=== PATIENT | male | born 1955 | race Caucasian/White ===

== ENCOUNTER 2023-06-16 15:29 | Outpatient (OUT) | payer OTHER, SELFPAY ==
--- NOTE | 2023-06-16 15:43 | MR_ITS ---
[address] [address] Patient Name: MARTI MORGAN MRN: [id number] date: 1955 Sex: M Assigned Patient Location: MRI Current Patient Location: Accession/Order Number: [id number] Exam Date: 06/16/2023 16:00 Report Date: 06/17/2023 07:29 At the request of: SHAIKH REBECCA Procedure: MR knee RT wo con EXAMINATION: MR knee RT wo con HISTORY: RIGHT KNEE PAIN M25.561 COMPARISON: No relevant comparison available. TECHNIQUE: A complete multi-planar MRI was performed. FINDINGS: MEDIAL COMPARTMENT MEDIAL MENISCUS: Signal abnormality throughout the posterior horn consistent with a complex tear extending to the superior and inferior articular surface. Thinned extruded body CARTILAGE: Mild to moderate chondromalacia BONES: Mild marginal osteophyte formation. Bone edema noted in the medial tibial plateau MCL AND MEDIAL CAPSULE: Normal medial collateral ligament and medial capsule. LATERAL COMPARTMENT LATERAL MENISCUS: Evidence of myxoid degeneration without visible tear. CARTILAGE: Moderate to severe chondromalacia with associated osteochondral injury BONES: Area of signal abnormality consistent with an osteochondral injury anterior lateral femoral condyle measuring 1.2 x 0.9 cm best seen on sagittal images 28 LCL/POSTEROLAT COMPLEX: Normal lateral collateral ligament, fascicles, lateral capsule and ligaments. ANTERIOR COMPARTMENT PATELLA: No marrow pathology, fracture, or significant arthropathy. CARTILAGE: Mild to moderate chondromalacia with no associated bone edema TENDONS: Normal. EFFUSION: Moderate joint effusion. ACL: Normal appearing ligament. PCL: Normal appearing ligament. MENISCOFEMORAL: Normal meniscofemoral ligaments. OTHER: Negative. 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
== END 2023-06-16 15:30 | disposition home or self-care (01) ==
LOC: MRI 15:32
PROVIDERS: PCP Internal Medicine; Visit Provider Internal Medicine
DX: M25.561 Pain in right knee (principal); M17.11 Unilateral primary osteoarthritis, right knee; S83.231A Complex tear of medial meniscus, current injury, right knee, initial encounter
CPT/HCPCS: 73721

== ENCOUNTER 2023-09-04 08:11 | Outpatient (OUT) | payer OTHER, SELFPAY ==
[2023-09-04 09:00] LABS: Percent Iron Saturation 18.9 %
[2023-09-05 05:07] LABS: Transferrin 282 mg/dL (177-329)
== END 2023-09-04 08:12 | disposition home or self-care (01) ==
LOC: LAB 08:12
PROVIDERS: PCP Internal Medicine; Visit Provider Internal Medicine
DX: D64.9 Anemia, unspecified (principal)
CPT/HCPCS: 36415; 82607; 82728; 82746; 83540; 83550; 84466

== ENCOUNTER 2024-02-21 06:47 | Outpatient (OUT) | payer OTHER, SELFPAY ==
--- OUTSIDE RECORDS SUMMARY | 2024-02-21 06:52 | XMS_ITS | CCD ---
Author Organization [facility] Care Team Providers Care Janitor Helper Name Role Phone SHAIKH Best CARLOS Admitting Unavailable SHAIKH Best CARLOS Attending Unavailable SHAIKH Best CARLOS Primary Care Unavailable SHAIKH Best CARLOS Consulting Unavailable SHAIKH CARLOS Primary Care Physician [phone] SHAIKH CARLOS Referring Unavailable RAMIN SIERRA Attending Unavailable LORIE PATTON Attending Unavailable Shaikh Carlos Primary Care Unavailable Mora Godoy Attending Unavailable Asajanet Imjanet Admitting Unavailable Medications Current Medications Medication Drug Class(es) Dates Sig (Normalized) Sig (Original) aspirin 81 mg delayed release oral tablet (1 source) Platelet Aggregation Inhibitor, Nonsteroidal Anti-inflammatory Drug Start: 10-09-2023 take 81 mg by mouth once daily Aspirin Active 81 MG PO Daily October 09, 2023 12:00am atorvastatin 20 mg oral tablet (2 sources) HMG-CoA Reductase Inhibitor Start: 10-09-2023 take 20 mg by mouth once daily Atorvastatin Active 20 MG PO Daily October 09, 2023 12:00am Start: 2023 atorvastatin 2 0 mg Tab Refills(s) 0 Start Date: 05/20/23 Status: Ordered diclofenac sodium 0.01 mg/mg topical gel (1 source) Nonsteroidal Anti-inflammatory Drug Start: 2023 diclofenac topical 1% gel Refill(s) 0 Start Date: 05/20/23 Status: Ordered ferrous sulfate 325 mg oral tablet (1 source) Start: 10-09-2023 take 325 mg by mouth once daily Ferrous Sulfate Active 325 MG PO Daily October 09, 2023 12:00am meloxicam 15 mg oral tablet (2 sources) Nonsteroidal Anti-inflammatory Drug Start: 10-09-2023 take 15 mg by mouth once daily Meloxicam Active 15 MG PO Daily October 09, 2023 12:00am Start: 2023 meloxicam 15 m g Tab Refills(s) 0 Start Date: 05/20/23 Status: Ordered metFORMIN hydrochloride 500 mg oral tablet (2 sources) Biguanide Start: 10-09-2023 take 500 mg by mouth twice daily Metformin Active 500 MG PO Twice daily October 09, 2023 12:00am Start: 2023 metformin 500 mg Tab Refills(s) 0 Start Date: 05/20/23 Status: Ordered 24 hr metoprolol succinate 50 mg extended release oral tablet (2 sources) beta-Adrenergic Fadia Start: 10-09-2023 take 50 mg by mouth once daily Metoprolol Succinate Active 50 MG PO Daily October 09, 2023 12:00am Start: 2023 take 1 mg by mouth once daily metoprolol 50 mg ER Tab mg tab(s), Oral, Daily, Refills(s) 0 Start Date: 05/20/23 Status: Ordered Multivitamin preparation (1 source) Start: 2023 multivitamin Refill(s) 0 Start Date: 05/20/23 Status: Ordered tadalafil 10 mg oral tablet (2 sources) Phosphodiesterase 5 Inhibitor Start: 10-09-2023 Tadalafil Active 10 MG PO As Directed October 09, 2023 12:00am Start: 2023 take 2 tablets by [facility] once daily as needed Cialis 10 mg Tab 20 mg = 2 tab(s), Oral, Daily, PRN for erectile dysfunction, Refills(s) 0 Start Date: 05/20/23 Status: Ordered tamsulosin hydrochloride 0.4 mg oral capsule (2 sources) alpha-Adrenergic Fadia Start: 10-09-2023 take 0.4 mg by mouth twice daily Tamsulosin Active 0.4 MG PO Twice daily October 09, 2023 12:00am Start: 2023 take 1 capsule by mo ut twice daily tamsulosin 0.4 mg Cap 0.4 mg = 1 cap(s), Oral, BID, # 60 tab(s), Refills(s) 6, Pharmacy: [id number], 192, cm, 05/20/23 10:49:00 EDT, Height/Length Dosing, 110, kg, 09/12/23 10:49:00 EDT, Weight Dosing Start Date: 05/20/23 Status: Ordered Completed/Discontinued Medications Medication Drug Class(es) Dates Sig (Normalized) Sig (Original) clopidogrel 75 mg oral tablet (2 sources) P2Y12 Platelet Inhibitor Start: 10-09-2023 End: 10-09-2023 take 75 mg by mouth once daily Clopidogrel Discontinued 75 MG PO Daily October 09, 2023 12:00am October 09, 2023 9:29am Start: 2023 clopidogrel 75 mg Tab Refills(s) 0 Start Date: 05/20/23 Status: Ordered Problems Problem Classification Problem Date Documented Da te Episodic/Chronic Calculus of urinary tract (1 source) History of calculus of kidney 2023 Episodic Diabetes mellitus without complication (2 sources) Type 2 diabetes mellitus without complications; Translations: [Diabetes mellitus] Onset: 06-28-2022 2023 Chronic Disorders of lipid metabolism (2 sources) Hyperlipidemia, unspecified; Translations: [Hyperlipidemia] Onset: 06-28-2022 2023 Chronic Essential hypertension (5 sources) Essential (primary) hypertension; Translations: [Hypertensive disorder] Onset: 06-25-2022 Chronic Genitourinary symptoms and ill-defined conditions (1 source) Sensation as if bladder still full; Translations: [Feeling of incomplete bladder emptying] Onset: 2023 Episodic Hyperplasia of prostate (3 sources) Benign prostatic hyperplasia with lower urinary tract symptoms; Translations: [Benign prostatic hypertrophy with outflow obstruction] Onset: 06-28-2022 Chronic Osteoarthritis (1 source) Arthritis 2023 Chronic Other aftercare (1 source) Long-term current use of anticoagulant; 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] Onset: 2023 Episodic Other male genital disorders (2 sources) Male erectile dysfunction, unspecified; Translations: [Erectile dysfunction] Onset: 2023 Chronic Other screening for suspected conditions (not mental disorders or infectious disease) (1 source) Encounter for screening for malignant neoplasm of prostate; Translations: [Screening for malignant neoplasm done] Onset: 2023 Episodic Transient cerebral ischemia (1 source) Transient cerebral ischemia 2023 Chronic Unclassified (1 source) Drug therapy finding 2023 Unclassified (1 source) Finding of sensation of bladder 2023 Unclassified (1 source) Patient encounter status 2023 Unclassified (1 source) Encounter for screening for malignant neoplasm of colon; Translations: [Encounter for screening for malignant neoplasm of colon] Onset: 10-09-2023 Results Test Name Value Interpretation Reference Range Facility Glucose Poct Glucometerson 0 10-09-2023 Glucose [Mass/Vol] 97 mg/dL Normal [facility] Comment on above: Result Comment: [facility] Glucose Reference Range is dependent on time and content of last meal. Glucose of more than 200 mg/dL in a nonstressed, ambulatory subject supports the diagnosis of Diabetes Mellitus. PERFORMED BY: [facility] [address] [place] [address] PATHOLOGIST LIBRARIAN SPECIALIST VÍCTOR FRANKLIN M.D. Performed By: #### G LULS #### Point of Care testing , Physician Referralon 023 Physician Referral [id number] 1989 [id number] :127 Normal [facility] Screenson 05-21-2023 Screens [id number] :127 Normal [facility] Screens [id number]: 127 Normal [facility] Ambulatory Visit Summaryon 0 2023 Ambulatory Visit Summary MARTI MORGAN :1955 Visit Date:2023 Ambulatory Visit Instructions Your Diagnosis BPH with urinary obstruction ED (erectile dysfunction) Feeling of incomplete bladder emptying Prostate cancer screening Anticoagulated Tests Performed Urnls Dip Stick Auto w/o Microscopy POC 60721 Your Care Team Attending Physician - MARIELA LANIER, RAMIN Cowan Primary Care Physician - SHAIKH CARLOS MD Referring Physician - SHAIKH CARLOS MD This Is Your Medications List tadalafil (Cialis 10 mg Tab) tamsulosin (tamsulosin 0.4 mg Cap) Contact prescribing physician if questions or concerns atorvastatin (atorvastatin 20 mg Tab) clopidogrel (clopidogrel 75 mg Tab) diclofenac topical (diclofenac topical 1% gel) meloxicam (meloxicam 15 mg Tab) metformin (metformin 500 mg Tab) metoprolol (metoprolol 50 mg ER Tab) multivitamin Procedures Performed Carpal tunnel, Colonoscopy, Tonsillectomy. Discharge Vitals Heart Rate (Peripheral) 78 Respiratory Rate 16 Blood Pressure 132/80 Height 192 cm Height 76 in Weight 110 kg Weight 242 lb BMI 29.84 What to do next You Need to Schedule the Following Appointments Follow Up with MARIELA LANIER, NAYANA BLACKMON When: Comments: Sched Cysto/TRUS w/KML Where: [address] [place] [address] Medications What How Much When Instructions Changed tadalafil (Cialis 10 mg Tab) 2 Tablets By Mouth Every day as needed for for erectile dysfunction Changed tamsulosin (tamsulosin 0.4 mg Cap) 1 Capsules By Mouth 2 times a day Pickup at [facility] Unchanged atorvastatin (atorvastatin 20 mg Tab) Contact prescribing physician if questions or concerns Unchanged clopidogrel (clopidogrel 75 mg Tab) Contact prescribing physician if questions or concerns Unchanged diclofenac topical (diclofenac topical 1% gel) Contact prescribing physician if questions or concerns Unchanged meloxicam (meloxicam 15 mg Tab) Contact prescribing physician if questions or concerns Unchanged metformin (metformin 500 mg Tab) Contact prescribing physician if questions or concerns Unchanged metoprolol (metoprolol 50 mg ER Tab) By Mouth Every day Contact prescribing physician if questions or concerns Unchanged multivitamin Contact prescribing physician if questions or concerns Pharmacy Information [id number]: [address] [place], [place] [id number] [phone] Test Results Urnls Dip Stick Auto w/o Microscopy POC 96894 (2023) Bilirubin Urine Dipstick - Negative Blood Urine Dipstick - Negative Glucose Urine Dipstick - Negative Ketones Urine Dipstick - Negative Leukocytes Urine Dipstick - Negative Nitrite Urine Dipstick - Negative Protein Urine Dipstick - Negative Specific Rankin Urine Dipstick - 1.010 Urine Appearance Urine Dipstick - Clear Urine Color Urine Dipstick - Yellow Urobilinogen Urine Dipstick - Normal 0.2-1 EU/dl pH Urine Dipstick - 6.5 Allergies No Known Medication Allergies Problems Ongoing - Any problem that you are currently receiving treatment for. Anticoagulated Arthritis BPH with urinary obstruction Diabetes ED (erectile dysfunction) Feeling of incomplete bladder emptying History of kidney stones Hyperlipidemia Hypertension Prostate cancer screening TIA (transient ischemic attack) Education Materials Benign Prostatic Hyperplasia Benign prostatic hyperplasia (BPH) is an enlarged prostate gland that is caused by the normal aging process. The prostate may get bigger as a man gets older. The condition is not caused by cancer. The prostate is a walnut-sized gland that is involved in the production of semen. It is located in front of the rectum and below the bladder. The bladder stores urine. The urethra carries stored urine out of the body. An enlarged prostate can press on the urethra. This can make it harder to pass urine. The buildup of urine in the bladder can cause infection. Back pressure and infection may progress to bladder damage and kidney (renal) failure. What are the causes? This condition is part of the normal aging process. However, not all men develop problems from this condition. If the prostate enlarges away from the urethra, urine flow will not be blocked. If it enlarges toward the urethra and compresses it, there will be problems passing urine. What increases the risk? This condition is more likely to develop in men older than 50 years. What are the signs or symptoms? Symptoms of this condition include: ? Getting up often during the night to urinate. ? Needing to urinate frequently during the day. ? Difficulty starting urine flow. ? Decrease in size and strength of your urine stream. ? Leaking (dribbling) after urinating. ? Inability to pass urine. This needs immediate treatment. ? Inability to completely empty your bladder. ? Pain when you pass urine. This is more com (more content not included)... Normal [facility] Lab Reportson 2023 Lab Reports [id number]:1 27 Normal [facility] Lab Reports [id number]: 127 Normal [facility] Patient Educationon 05-20-20 23 Patient Education Urology Benign Prostatic Hyperplasia Benign prostatic hyperplasia (BPH) is an enlarged prostate gland that is caused by the normal aging process. The prostate may get bigger as a man gets older. The condition is not caused by cancer. The prostate is a walnut-sized gland that is involved in the production of semen. It is located in front of the rectum and below the bladder. The bladder stores urine. The urethra carries stored urine out of the body. An enlarged prostate can press on the urethra. This can make it harder to pass urine. The buildup of urine in the bladder can cause infection. Back pressure and infection may progress to bladder damage and kidney (renal) failure. What are the causes? This condition is part of the normal aging process. However, not all men develop problems from this condition. If the prostate enlarges away from the urethra, urine flow will not be blocked. If it enlarges toward the urethra and compresses it, there will be problems passing urine. What increases the risk? This condition is more likely to develop in men older than 50 years. What are the signs or symptoms? Symptoms of this condition include: ? Getting up often during the night to urinate. ? Needing to urinate frequently during the day. ? Difficulty starting urine flow. ? Decrease in size and strength of your urine stream. ? Leaking (dribbling) after urinating. ? Inability to pass urine. This needs immediate treatment. ? Inability to completely empty your bladder. ? Pain when you pass urine. This is more common if there is also an infection. ? Urinary tract infection (UTI). How is this diagnosed? This condition is diagnosed based on your medical history, a physical exam, and your symptoms. Tests will also be done, such as: ? A post-void bladder scan. This measures any amount of urine that may remain in your bladder after you finish urinating. ? A digital rectal exam. In a rectal exam, your health care provider checks your prostate by putting a lubricated, gloved finger into your rectum to feel the back of your prostate gland. This exam detects the size of your gland and any abnormal lumps or growths. ? An exam of your urine (urinalysis). ? A prostate specific antigen (PSA) screening. This is a blood test used to screen for prostate cancer. ? An ultrasound. This test uses sound waves to electronically produce a picture of your prostate gland. Your health care provider may refer you to a specialist in kidney and prostate diseases (urologist). How is this treated? Once symptoms begin, your health care provider will monitor your condition (active surveillance or watchful waiting). Treatment for this condition will depend on the severity of your condition. Treatment may include: ? Observation and yearly exams. This may be the only treatment needed if your condition and symptoms are mild. ? Medicines to relieve your symptoms, including: ? Medicines to shrink the prostate. ? Medicines to relax the muscle of the prostate. ? Surgery in severe cases. Surgery may include: ? Prostatectomy. In this procedure, the prostate tissue is removed completely through an open incision or with a laparoscope or robotics. ? Transurethral resection of the prostate (TURP). In this procedure, a tool is inserted through the opening at the tip of the penis (urethra). It is used to cut away tissue of the inner core of the prostate. The pieces are removed through the same opening of the penis. This removes the blockage. ? Transurethral incision (TUIP). In this procedure, small cuts are made in the prostate. This lessens the prostate's pressure on the urethra. ? Transurethral microwave thermotherapy (TUMT). This procedure uses microwaves to create heat. The heat destroys and removes a small amount of prostate tissue. ? Transurethral needle ablation (TUNA). This procedure uses radio frequencies to destroy and remove a small amount of prostate tissue. ? Interstitial laser coagulation (ILC). This procedure uses a laser to destroy and remove a small amount of prostate tissue. ? Transurethral electrovaporization (TUVP). This procedure uses electrodes to destroy and remove a small amount of prostate tissue. ? Prostatic urethral lift. This procedure inserts an implant to push the lobes of the prostate away from the urethra. Follow these instructions at home: ? Take wkxv-abu-efjqwig and prescription medicines only as told by your health care provider. ? Monitor your symptoms for any changes. Contact your health care provider with any changes. ? Avoid drinking large amounts of liquid before going to bed or out in public. ? Avoid or reduce how much caffeine or alcohol you drink. ? Give yourself time when you urinate. ? Keep all follow-up visits. This is important. Contact a health care provider if: ? You have unexplained back pain. ? Your symptoms do not get better with treatment. ? You develop side effects from the medicine (more content not included)... Normal [facility] CBC AUTO DIFFon 06-25-2022 BASO # 0.1 103/ul Normal 0.0-0.1 [facility] Comment on above: Performed By: #### C BC #### [facility] [address] [place] [address] Dr. Renee Prado Basophils/100 WBC (Bld) 0.8 % Normal 0.2-2.0 [facility] Comment on above: Performed By: #### C BC #### [facility] [address] [place] [address] Dr. Renee Prado EO # 0.3 103/ul Normal 0.0-0.7 [facility] Comment on above: Performed By: #### C BC #### [facility] [address] [place] [address] Dr. Renee Prado Eosinophils/100 WBC (Bld) 3.3 % Normal 0.9-7.0 [facility] Comment on above: Performed By: #### C BC #### [facility] [address] [place] [address] Dr. Renee Prado Erythrocyte distribution width (RBC) [Ratio] 13.9 % Normal 11.0-15.0 [facility] Comment on above: Performed By: #### C BC #### [facility] [address] [place] [address] Dr. Renee Prado Hematocrit (Bld) [Volume fraction] 41.9 % Critically low 42.0-54.0 [facility] Comment on above: Performed By: #### C BC #### [facility] [address] [place] [address] Dr. Renee Prado Hemoglobin (Bld) [Mass/Vol] 13.8 g/dL Critically low 14.0-18.0 [facility] Comment on above: Performed By: #### C BC #### [facility] [address] [place] [address] Dr. Renee Prado IG # 0.02 10e3/ul Normal 0.00-0.03 [facility] Comment on above: Performed By: #### C BC #### [facility] [address] [place] [address] Dr. Renee Prado IG % 0.2 % Normal 0.0-0.5 [facility] Comment on above: Performed By: #### C BC #### [facility] [address] [place] [address] Dr. Renee Prado LYMPH # 1.8 103/ul Normal 1.2-3.8 [facility] Comment on above: Performed By: #### C BC #### [facility] [address] [place] [address] Dr. Renee rPado Lymphocytes/100 WBC (Bld) 19.9 % Critically low 20.5-60.0 [facility] Comment on above: Performed By: #### C BC #### [facility] [address] [place] [address] Dr. Renee Prado MANUAL DIFF REQ NO Normal [facility] Comment on above: Performed By: #### C BC #### [facility] [address] [place] [address] Dr. Renee Prado MCH (RBC) [Entitic mass] 28.9 pg Normal 25.9-34.0 [facility] Comment on above: Performed By: #### C BC #### [facility] [address] [place] [address] Dr. Renee Prado MCHC (RBC) [Mass/Vol] 32.9 g/dL Normal 29.9-35.2 [facility] Comment on above: Performed By: #### C BC #### [facility] [address] [place] [address] Dr. Renee Prado MCV (RBC) [Entitic vol] 87.7 fL Normal 80.0-94.0 [facility] Comment on above: Performed By: #### C BC #### [facility] [address] [place] [address] Dr. Renee Prado MONO # 0.6 103/ul Normal 0.3-0.8 [facility] Comment on above: Performed By: #### C BC #### [facility] [address] [place] [address] Dr. Renee Prado Monocytes/100 WBC (Bld) 6.8 % Normal 1.7-12.0 [facility] Comment on above: Performed By: #### C BC #### [facility] [address] [place] [address] Dr. Renee Prado NEUT # 6.1 103/ul Normal 1.4-6.5 [facility] Comment on above: Performed By: #### C BC #### [facility] [address] [place] [address] Dr. Renee Prado Neutrophils/100 WBC (Bld) 69.0 % Normal 43.0-75.0 [facility] Comment on above: Performed By: #### C BC #### [facility] [address] [place] [address] Dr. Renee Prado Platelet mean volume (Bld) [Entitic vol] 9.4 fL Critically low 9.5-13.5 [facility] Comment on above: Performed By: #### C BC #### [facility] [address] [place] [address] Dr. Renee Prado PLT 269 103/ul Normal 150-450 [facility] Comment on above: Performed By: #### C BC #### [facility] [address] [place] [address] Dr. Renee Prado RBC 4.78 106/ul Normal 4.70-6.10 [facility] Comment on above: Performed By: #### C BC #### [facility] [address] [place] [address] Dr. Renee Prado WBC 8.9 103/ul Normal 4.0-11.0 [facility] Comment on above: Performed By: #### C BC #### [facility] [address] [place] [address] Dr. Renee Prado CREATININE URINEon URINE CREAT 51.03 mg/dL Normal 20.00-300.00 [facility] Comment on above: Performed By: #### C REAU #### [facility] [address] [place] [address] Dr. Renee Prado GLYCOHEMOGLOBIN A1Con 2021 ADA RECOMMENDATION SEE BELOW Normal [facility] Comment on above: Result Comment: ADA RECOMMENDED LIMIT 4.0 - 6.0 ADA THERAPEUTIC TARGET < 7.0 ACTION SUGGESTED > 7.0 Performed By: #### A 1C #### [facility] [address] [place] [address] Dr. Renee Prado Glucose [Mass/Vol] 128 mg/dL Normal [facility] Comment on above: Performed By: #### A 1C #### [facility] [address] [address] [address] Renee Prado HbA1c (Bld) [Mass fraction] 6.1 % Normal 4.5-6.2 [facility] Comment on above: Performed By: #### A 1C #### [facility] [address] [place] [address] Dr. Renee Prado LIPID PROFILEon 06-25-2022 CHOL-HDL RATIO NORM SEE BELOW Normal [facility] Comment on above: Result Comment: 3.3 - 4.4 LOW RISK 4.4 - 7.1 AVERAGE RISK 7.1 - 11.0 MODERATE RISK >11.0 HIGH RISK Performed By: #### C MP, LIPID #### [facility] [address] [place] [address] Dr. Renee Prado Cholesterol [Mass/Vol] 158 mg/dL Normal <=200 [facility] Comment on above: Performed By: #### C MP, LIPID #### [facility] [address] [place] [address] Dr. Renee Prado Cholesterol in HDL [Mass/Vol] 51 mg/dL Normal 40-60 [facility] Comment on above: Performed By: #### C MP, LIPID #### [facility] [address] [address] [address] Renee Prado Cholesterol in LDL [Mass/Vol] 92.6 mg/dL Normal [facility] Comment on above: Performed By: #### C MP, LIPID #### [facility] [address] [place] [address] Dr. Renee Prado Cholesterol.total/Ch olesterol in HDL [Mass ratio] 3.1 {ratio} Normal [facility] Comment on above: Performed By: #### C MP, LIPID #### [facility] [address] [place] [address] Dr. Renee Prado HDL NORMAL > or = 60 mg/dl - LO W CARDIOVASCULAR RISK <40 mg/dl - HIGH CARDIOVASCULAR RISK Normal [facility] Comment on above: Performed By: #### C MP, LIPID #### [facility] [address] [place] [address] Dr. Renee Prado LDL CALC NORMAL SEE BELOW Normal [facility] Comment on above: Result Comment: <100 mg/dl OPTIMAL 100 - 129 mg/dl NEAR OR ABOVE OPTIMAL 130 - 159 mg/dl BORDERLINE HIGH 160 - 189 mg/dl HIGH >190 mg/dl VERY HIGH Performed By: #### C MP, LIPID #### [facility] [address] [place] [address] Dr. Renee Prado Triglyceride [Mass/Vol] 72 mg/dL Normal <=150 [facility] Comment on above: Performed By: #### C MP, LIPID #### [facility] [address] [place] [address] Dr. Renee Prado VLDL CALC 14.4 mg/dL Normal [facility] Comment on above: Performed By: #### C MP, LIPID #### [facility] [address] [place] [address] Dr. Renee Prado MICROALBUMIN, RAND URon 10- mALB <0.5 Normal <=30.0 [facility] Comment on above: Performed By: #### M ALBR #### [facility] [address] [place] [address] Dr. Renee Prado PROF 14(COMP METB)on 022 Albumin [Mass/Vol] 4.0 g/dL Normal 3.4-5.0 [facility] Comment on above: Performed By: #### C MP, LIPID #### [facility] [address] [place] [address] Dr. Renee Prado Albumin/Globulin [Mass ratio] 1.3 {ratio} Normal [facility] Comment on above: Performed By: #### C MP, LIPID #### [facility] [address] [address] [address] Renee Prado ALP [Catalytic activity/Vol] 40 U/L Critically low 46-116 [facility] Comment on above: Performed By: #### C MP, LIPID #### [facility] [address] [place] [address] Dr. Renee Prado ALT [Catalytic activity/Vol] 29 U/L Normal 16-63 [facility] Comment on above: Performed By: #### C MP, LIPID #### [facility] [address] [address] [address] Renee Prado Anion gap [Moles/Vol] 8.4 mmol/L Normal [facility] Comment on above: Performed By: #### C MP, LIPID #### [facility] [address] [place] [address] Dr. Renee Prado AST [Catalytic activity/Vol] 16 U/L Normal 15-37 [facility] Comment on above: Performed By: #### C MP, LIPID #### [facility] [address] [place] [address] Dr. Renee Prado Bilirubin [Mass/Vol] 0.5 mg/dL Normal 0.2-1.0 [facility] Comment on above: Performed By: #### C MP, LIPID #### [facility] [address] [place] [address] Dr. Renee Prado Calcium [Mass/Vol] 9.4 mg/dL Normal 8.5-10.1 [facility] Comment on above: Performed By: #### C MP, LIPID #### [facility] [address] [place] [address] Dr. Renee Prado Chloride [Moles/Vol] 103 mmol/L Normal 98-107 [facility] Comment on above: Performed By: #### C MP, LIPID #### [facility] [address] [address] [address] Renee Prado CO2 [Moles/Vol] 30.3 mmol/L Normal 21.0-32.0 [facility] Comment on above: Performed By: #### C MP, LIPID #### [facility] [address] [place], [place] [id number] Dr. Renee Prado Creatinine [Mass/Vol] 0.83 mg/dL Normal 0.70-1.30 [facility] Comment on above: Performed By: #### C MP, LIPID #### [facility] [address] [place] [address] Dr. Renee Prado EGFR-AF TONGAN >65 Normal >=60 [facility] Comment on above: Performed By: #### C MP, LIPID #### [facility] [address] [place] [address] Dr. Renee Prado EGFR-NON AF TONGAN >65 Normal >=60 [facility] Comment on above: Performed By: #### C MP, LIPID #### [facility] [address] [place] [address] Dr. Renee Prado Globulin (S) [Mass/Vol] 3.2 g/dL Normal [facility] Comment on above: Performed By: #### C MP, LIPID #### [facility] [address] [place] [address] Dr. Renee Prado Glucose [Mass/Vol] 88 mg/dL Normal 74-106 [facility] Comment on above: Performed By: #### C MP, LIPID #### [facility] [address] [place] [address] Dr. Renee Prado Potassium [Moles/Vol] 3.7 mmol/L Normal 3.5-5.1 [facility] Comment on above: Performed By: #### C MP, LIPID #### [facility] [address] [place] [address] Dr. Renee Prado Protein [Mass/Vol] 7.2 g/dL Normal 6.4-8.2 [facility] Comment on above: Performed By: #### C MP, LIPID #### [facility] [address] [place] [address] Dr. Renee Prado Sodium [Moles/Vol] 138 mmol/L Normal 136-145 [facility] Comment on above: Performed By: #### C MP, LIPID #### [facility] [address] [place] [address] Dr. Renee Prado Urea nitrogen [Mass/Vol] 12.0 mg/dL Normal 7.0-18.0 [facility] Comment on above: Performed By: #### C MP, LIPID #### [facility] [id number] [address] Renee Prado Urea nitrogen/Creatinine [Mass ratio] 14.5 mg/mg Normal [facility] Comment on above: Performed By: #### C MP, LIPID #### [facility] [address] [place], [place] [address] Dr. Renee Prado Vital Signs Date Time Vital Sign Value Performing Clinician Faci lity 10-09-2023 11:45-0500 Diastolic blood pressure 69 mm[Hg] [facility] 10-09-2023 11:45-0500 Heart rate 69 /min [facility] 10-09-2023 11:45-0500 Respiratory rate 18 /min [facility] 10-09-2023 11:45-0500 SaO2% (BldA) [Mass fraction] 99 % [facility] 10-09-2023 11:45-0500 Systolic blood pressure 116 mm[Hg] [facility] 10-09-2023 09:23-0500 Body height 193.04 cm [facility] 10-09-2023 09:23-0500 Body weight 108.86 kg [facility] 2023 10:47-0400 Blood Pressure Location RAMIN SIERRA [facility] 2023 10:47-0400 Diastolic blood pressure 80 mm[Hg] RAMIN SIERRA [facility] 2023 10:47-0400 Heart rate 78 /min RAMIN SIERRA [facility] 2023 10:47-0400 Respiratory rate 16 /min RAMIN SIERRA [facility] 2023 10:47-8900 Systolic blood pressure 132 mm[Hg] RAMIN SIERRA [facility] Encounters Encounter Date Encounter Type Care Provider Facility Start: 10-09-2023 End: 10-09-2023 ambulatory Shaikh Breanna Facility:[facility] Start: 10-09-2023 Non-patient / Non-visit [facility] Gastroenterology Work Phone: Start: 08-04-2023 End: 08-04-2023 ambulatory LORIE Cuenca APLING Not Available Start: 2023 End: 05-21-2023 ambulatory SHAIKH BREANNA Facility:[facility] Start: 2023 End: 2023 Patient encounter procedure RAMIN SIERRA [facility] Start: 03-05-2023 ambulatory SHAIKH BREANNA Facility: [facility] Start: 06-25-2022 End: 06-26-2022 ambulatory SHAIKH Best CARLOS Facility:[facility] Procedures Date Procedure Procedure Detail Performing Clinician Start: 06-25-2022 PSA screening ROSASBest ORDONEZ Comment on above: Performed By: #### P SAD #### [facility] [address] [place] [address] Dr. Renee Prado Carpal tunnel syndro me (disorder) RAMIN SIERRA Colonoscopy RAMIN SIERRA Tonsillectomy RAMIN SIERRA Plan of Treatment Date Care Activity Detail Author Start: 10-09-2023 [facility] Immunizations Immunization Date Immunization Notes Care Provider [facility] 07-04-2022 SARS-CoV-2 (COVID-19 ) [id number] RAMIN SIERRA [facility] 06-15-2022 influenza virus vaccine, unspecified formulation RAMIN MARIELA [facility] 12-07-2020 SARS-CoV-2 (COVID-19 ) mRNA BNT-162b2 vax RAMIN MARIELA [facility] 11-17-2020 SARS-CoV-2 (COVID-19 ) mRNA BNT-162b2 vax RAMIN MARIELA [facility] Comment on above: Result Comment: 2022: [id number] 06-30-2020 influenza virus vaccine, unspecified formulation RAMIN MARIELA [facility] 06-30-2020 tetanus toxoid, redu esther diphtheria toxoid, and acellular pertussis vaccine, adsorbed RAMIN MARIELA [facility] 03-15-2020 zoster vaccine recombinant RAMIN MARIELA [facility] 10-11-2019 zoster vaccine recombinant RAMIN MARIELA [facility] 07-29-2019 influenza virus vaccine, unspecified formulation RAMIN MARIELA [facility] 07-17-2018 influenza virus vaccine, unspecified formulation RAMIN MARIELA [facility] 12-19-2016 zoster vaccine, live JENNIFE R MARIELA [facility] Payers Date Payer Category Payer Self-pay 1957 Private Health Insurance [id number] 1955 Unknown [id number] 1955 Unknown [id number] 1955 Unknown [id number] Unknown [facility] [id number] Unknown [id number] [id number] Social History Date Type Detail Facility Start: 2023 End: 10-09-2023 Tobacco smoking status Never smoked tobacco (finding) [facility] Tobacco smoking status Never [facility] Sex Assigned At Male 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 PSA 06/21/19- 0.90 PSA 08/21/20- 0.89 PSA 06/25/22- 0.79 CMP/CBC 06/25/22 *Has been taking Tamsulosin 0.4mg qd for about 1yr. Has noticed symptoms returning in past 5 months. Increased frequency in the morning. Depends on intake. Couple times during the night. Denies problems with stream. Does not feel empty. Occasional leaking. Mostly if he can't get to the restroom quick enough &/or some dribbling at the end. Also on Cialis 10mg PRN for the past year as well. Working ok. Not as well as he would like. More difficulty maintaining the erection. PVR 430ml IPSS 12 CLAYTON 15 History of Present Illness staff HPI reviewed and agree. Review of Systems PHQ Score Initial Depression Screen Score: 0 no fever, chills, malaise, myalgia. no rash/lesions. no chest pain, palpitations, or SOB. no abdominal pain, nausea, vomiting. 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 BPH with urinary obstruction (N40.1: Benign prostatic hyperplasia with lower urinary tract symptoms) IPSS 12 QOL 3 UA today is negative for blood and infection. Has been taking Tamsulosin 0.4mg QD for about 1yr. Has noticed symptoms returning in past 5 months. Increased frequency in the morning. Depends on intake. Couple times during the night. Denies problems with stream. Occasional leaking. Mostly if he can't get to the restroom quick enough &/or some dribbling at the end. We discussed current dose and optional changes: increasing tamsulosin to BID adding an additional agent such as finasteride/dutasteride I discussed with the patient the different surgical treatment options for bladder outlet obstruction including TURP, Rezum, and Urolift. Pt was provided with literature to review for each option. He will be scheduled for cystoscopy/TRUS with MD for visualization of the prostatic urethra and surgical planning. The risks and benefits for cystoscopy have been discussed. The risks include bleeding, infection, and irritation of the bladder and urinary channel, among others. The patient, after being informed of procedural details and after questions have been answered, wishes to proceed. Full informed consent has been obtained. Will order Local anesthesia. -Increase Flomax from QD to BID for the time being to provide some immediate symptom relief. Advised pt to finish his original script and we will send new script for BID to pharm on file for him to start. Call office if intolerable side effects. -return for cysto/TRUS. if mild/moderate obstruction and no evidence of bladder damage, can hold off on MIPP for a while and try to control sx w oral meds. if moderate/severe obstruction and/or evidence of bladder damage, pt aware we will recommend MIPP sooner rather than later. Ordered: 60174 Measure Post Void residual urine and/or bladder capacity by US- non-imaging E&M of New Patient Moderate 45-59 Min 41574 Urnls Dip Stick Auto w/o Microscopy POC 07751 2. ED (erectile dysfunction) (N52.9: Male erectile dysfunction, unspecified) Pt has been on Cialis 10mg PRN for the past year as well. Working okay. Not as well as he would like. More difficulty maintaining the erection. CLAYTON 15 Advised pt that the Cialis 10mg is not the highest dose and he could try taking 20mg at once. Pt states that he will try this and let us know if not effective or if causes intolerable side effects. Proper use discussed. -increase to Cialis 20mg PRN Ordered: E&M of New Patient Moderate 45-59 Min 79150 3. Feeling of incomplete bladder emptying (R39.14: Feeling of incomplete bladder emptying) Pt states he does not feel empty, initial PVR today is 430mL, pt voided a second time about 15 mins later (unprompted) and second PVR 23mL. -See #1 Ordered: E&M of New Patient Moderate 45-59 Min 00809 4. Prostate cancer screening (Z12.5: Encounter for screening for malignant neoplasm of prostate) PSA 06/21/19 - 0.90 08/21/20 - 0.89 06/25/22 - 0.79 -due again in 1 month. PCP manages. 5. 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 Ordered: E&M of New Patient Moderate 45-59 Min 60798 Orders: tamsulosin, 0.4 mg = 1 cap(s), Oral, BID, # 60 tab(s), Refills(s) 6, Pharmacy: [id number], 192, cm, 05/20/23 10:49:00 EDT, Height/Length Dosing, 110, kg, 05/20/23 10:49:00 EDT, Weight Dosing Follow up w/Cysto/TRUS w/KML. All questions/concerns were discussed. Pt to call the office if h (more content not included)... [facility] Comment on above: Result Comment: Elec tronically Signed By: RAMIN SIERRA PA-C.br\Date and Time Signed: 05/20/23 11:49 EDT\.br\Electronically Co-Signed By: Lisa Parisi.br\Date and Time Co-Signed: 05/20/23 11:40 EDT Hospital Discharge instructions 2023 Note Date & Type Note Facility 2023 Hospital Discharge instructions Patient Education 2023 11:29:04 Benign Prostatic Hyperplasia Benign Prostatic Hyperplasia Benign prostatic hyperplasia (BPH) is an enlarged prostate gland that is caused by the normal aging process. The prostate may get bigger as a man gets older. The condition is not caused by cancer. The prostate is a walnut-sized gland that is involved in the production of semen. It is located in front of the rectum and below the bladder. The bladder stores urine. The urethra carries stored urine out of the body. An enlarged prostate can press on the urethra. This can make it harder to pass urine. The buildup of urine in the bladder can cause infection. Back pressure and infection may progress to bladder damage and kidney (renal) failure. What are the causes? This condition is part of the normal aging process. However, not all men develop problems from this condition. If the prostate enlarges away from the urethra, urine flow will not be blocked. If it enlarges toward the urethra and compresses it, there will be problems passing urine. What increases the risk? This condition is more likely to develop in men older than 50 years. What are the signs or symptoms? Symptoms of this condition include: Getting up often during the night to urinate. Needing to urinate frequently during the day. Difficulty starting urine flow. Decrease in size and strength of your urine stream. Leaking (dribbling) after urinating. Inability to pass urine. This needs immediate treatment. Inability to completely empty your bladder. Pain when you pass urine. This is more common if there is also an infection. Urinary tract infection (UTI). How is this diagnosed? This condition is diagnosed based on your medical history, a physical exam, and your symptoms. Tests will also be done, such as: A post-void bladder scan. This measures any amount of urine that may remain in your bladder after you finish urinating. A digital rectal exam. In a rectal exam, your health care provider checks your prostate by putting a lubricated, gloved finger into your rectum to feel the back of your prostate gland. This exam detects the size of your gland and any abnormal lumps or growths. An exam of your urine (urinalysis). A prostate specific antigen (PSA) screening. This is a blood test used to screen for prostate cancer. An ultrasound. This test uses sound waves to electronically produce a picture of your prostate gland. Your health care provider may refer you to a specialist in kidney and prostate diseases (urologist). How is this treated? Once symptoms begin, your health care provider will monitor your condition (active surveillance or watchful waiting). Treatment for this condition will depend on the severity of your condition. Treatment may include: Observation and yearly exams. This may be the only treatment needed if your condition and symptoms are mild. Medicines to relieve your symptoms, including: ?Medicines to shrink the prostate. ?Medicines to relax the muscle of the prostate. Surgery in severe cases. Surgery may include: ?Prostatectomy. In this procedure, the prostate tissue is removed completely through an open incision or with a laparoscope or robotics. ?Transurethral resection of the prostate (TURP). In this procedure, a tool is inserted through the opening at the tip of the penis (urethra). It is used to cut away tissue of the inner core of the prostate. The pieces are removed through the same opening of the penis. This removes the blockage. ?Transurethral incision (TUIP). In this procedure, small cuts are made in the prostate. This lessens the prostate's pressure on the urethra. ?Transurethral microwave thermotherapy (TUMT). This procedure uses microwaves to create heat. The heat destroys and removes a small amount of prostate tissue. ?Transurethral needle ablation (TUNA). This procedure uses radio frequencies to destroy and remove a small amount of prostate tissue. ?Interstitial laser coagulation (ILC). This procedure uses a laser to destroy and remove a small amount of prostate tissue. ?Transurethral electrovaporization (TUVP). This procedure uses electrodes to destroy and remove a small amount of prostate tissue. ?Prostatic urethral lift. This procedure inserts an implant to push the lobes of the prostate away from the urethra. Follow these instructions at home: Take [id number]-[id number] and prescription medicines only as told by your health care provider. Monitor your symptoms for any changes. Contact your health care provider with any changes. Avoid drinking large amounts of liquid before going to bed or out in public. Avoid or reduce how much caffeine or alcohol you drink. Give yourself time when you urinate. Keep all follow-up visits. This is important. Contact a health care provider if: You have unexplained back pain. Your symptoms do not get better with treatment. You develop side effects from the medicine you are taking. Your urine becomes very dark or has a bad smell. Your lower abdomen becomes distended and you have trouble passing urine. Get help right away if: You have a fever or chills. You suddenly cannot urinate. You feel light-headed or very dizzy, or you faint. There are large amounts of blood or clots in your urine. Your urinary problems become hard to manage. You develop moderate to severe low back or flank pain. The flank is the side of your body between the ribs and the hip. These symptoms may be an emergency. Get help right away. Call 911. Do not wait to see if the symptoms will go away. Do not drive yourself to the hospital. Summary Benign prostatic hyperplasia (BPH) is an enlarged prostate that is caused by the normal aging process. It is not caused by cancer. An enlarged prostate can press on the urethra. This can make it hard to pass urine. This condition is more likely to develop in men older than 50 years. Get help right away if you suddenly cannot urinate. This information is not intended to replace advice given to you by your health care provider. Make sure you discuss any questions you have with your health care provider. Document Revised: 03/13/2022 Document Reviewed: 03/13/2022 [employer] Patient Education 2022 Room[employer]ve[employer]. Follow Up Care 03/05/2023 09:34:37 With:RAMIN SIERRA PA-C, URL Address: [address] [place] [address] When: Unknown Comments:Sched Cysto/TRUS w/KML [facility] Evaluation + Plan note Note Date & Type Note Facility Evaluation + Plan note No data available for this section [facility] Evaluation note Note Date & Type Note Facility Evaluation note No assessment information availa [facility] Work Phone: Hospital Discharge instructions Note Date & Type Note Facility Hospital Discharge instructions Additional Instructions DISCHARGE INSTRUCTIONS FOR COLONOSCOPY WHAT TO EXPECT: - You may feel full, gassy or cramping after your procedure. In some cases, this may be from a few hours to a day. Walking may help relieve the discomfort. - If you have polyp(s) removed you may note some minor bloody discharge after your first bowel movements. - You should begin to recover from anesthesia within 1 hour of the procedure, however may feel groggy for the next 24 hours. DO's AND DON'Ts: - Call your doctor right away if you have a hard abdomen, severe pain, are passing lots of bright red blood or clots. - Call your doctor if you develop any rashes, hives or difficulty breathing. - Let your doctor know if you have not had a bowel movement by 3 days after your procedure. - If you take 81 mg aspirin for your heart it is safe to resume this medication. - If you take other blood thinner medications your doctor will instruct you when these can safely be resumed. - Do NOT drive for 24 hours. - Do NOT operate machinery such as power tools, lawn mowers, snow blowers, sewing machines, etc. for 24 hours. - Avoid alcoholic beverages and drugs for allergies, nerves, or sleep. - Do NOT stay alone. Do NOT leave your child unattended. - Do NOT make important personal or business decisions or sign any legal documents. - Eat solid foods and drink liquids in smaller amounts than usual until normal appetite returns. If you should experience an upset stomach, liquids high in sugar content (soda, Daniel-Aid, non-acid juices) are recommended. - You can resume normal activities tomorrow. FOLLOW UP & RECOMMENDATIONS: -Notify the doctor if you have any problems. -Repeat colonoscopy in 5 years. -Follow up with PCP. -Office number [phone]. [facility] Work Phone: Progress note Note Date & Type Note Facility Progress note No data available for this section [facility] Summary Purpose Family History No Family History Records Found Relationship Condition Age at Onset Recorded Date/T xenia Not Specified Diabetes mellitus Unknown Hypertension Unknown father Diabetes mellitus Unknown Heart disease Unknown Not Specified Heart disease Unknown Myocardial infarction Unknown Advance Directives No Advanced Directives Records Found Advance Directive Response Recorded Date/ Time Advance Directives No October 07, 2023 4:56pm Chief Complaint and Reason for Visit Chief Complaint Screening Additional Source Comments (unrecognized sect ion and content) No Status Records FoundNo Status Records FoundNo Status Records FoundNo Status Records Found INFORMATION SOURCE (unrecogn ized section and content) DATE CREATED AUTHOR 06/30/2022 [facility] DATE CREATED AUTHOR AUTHOR'S ORGANIZ ATION 05/21/2023 [facility] DATE CREATED AUTHOR AUTHOR'S ORGANIZ ATION 08/04/2023 [facility] DATE CREATED AUTHOR AUTHOR'S ORGANIZ ATION 10/17/2023 [facility] Patient Care team informatio n (unrecognized section and content) Team Status: Active Member Role Status Dates Shaikh Breanna MD Primary Care Provider Active Team Status: Active Member Role Status Dates Mora Godoy MD Attending Provider, Other Provider Active Start: October 09, 2023 Shaikh Breanna MD Primary Care Provider Active Start: October 09, 2023 Goals (unrecognized section and content) Goals may be documented in a n alternate section FOR RECORDS PERTAINING TO PATIENTS WHO ARE OR HAVE BEEN ENROLLED IN A CHEMICAL DEPENDENCY/SUBSTANCEABUSE PROGRAM, SOME INFORMATION MAY BE OMITTED. This clinical summary was aggregated from multiple sources. Caution should be exercised in using it in the provision of clinical care. This summary normalizes information from multiple sources, and as a consequence, information in this document may materially change the coding, format and clinical context of patient data. In addition, data may be omitted in some cases. CLINICAL DECISIONS SHOULD BE BASED ON THE PRIMARY CLINICAL RECORDS. [employer] provides no warranty or guarantee of the accuracy or completeness of information in this document.
[2024-02-21 07:08] LABS: Basophils Absolute Auto 0.1 10^3/uL (0.0-0.1); Basophils Percent Auto 1.3 % (0.2-2.0); Eosinophils Absolute Auto 0.4 10^3/uL (0.0-0.7); Eosinophils Percent Auto 5.2 % (0.9-7.0); Hemoglobin 13.2 g/dL (14.0-18.0); Immature Granulocytes Abs Auto 0.01 10^3/uL (0.00-0.03); Immature Granulocytes Pct Auto 0.1 % (0.0-0.5); Lymphocytes Absolute Auto 1.3 10^3/uL (1.2-3.8); Lymphocytes Percent Auto 18.5 % (20.5-60.0); Mean Corpuscular Hemoglobin 29.4 pg (25.9-34.0); Mean Corpuscular Volume 89.1 fL (80.0-94.0); Mean Platelet Volume 9.1 fL (9.5-13.5); Monocytes Absolute Auto 0.6 10^3/uL (0.3-0.8); Monocytes Percent Auto 8.5 % (1.7-12.0); Neutrophils Absolute Auto 4.7 10^3/uL (1.4-6.5); Neutrophils Percent Auto 66.4 % (43.0-75.0); Platelet Count 270 10^3/uL (150-450); Red Blood Count 4.49 10^6/uL (4.70-6.10); Red Cell Distribution Width 14.3 % (11.0-15.0); White Blood Count 7.1 10^3/uL (4.0-11.0)
[2024-02-21 07:40] LABS: Percent Iron Saturation 8.9 %
[2024-02-21 07:43] LABS: Chol HDL Ratio 1.9; Cholesterol 107 mg/dL (<=200); HDL Cholesterol 55 mg/dL (40-60); LDL Cholesterol Calculated 41.2 mg/dL; Triglycerides 54 mg/dL (<=150); VLDL CHOLESTEROL 10.8 mg/dL
== END 2024-02-21 06:48 | disposition home or self-care (01) ==
PROVIDERS: PCP Internal Medicine; Visit Provider Internal Medicine
DX: E78.5 Hyperlipidemia, unspecified (principal); D50.9 Iron deficiency anemia, unspecified
CPT/HCPCS: 36415; 80061; 82728; 83540; 83550; 85025

== ENCOUNTER 2024-03-01 16:24 | Outpatient (OUT) | payer OTHER, SELFPAY ==
--- NOTE | 2024-03-01 | XR_ITS ---
[address] [address] Patient Name: MARTI MORGAN MRN: [id number] date: 1955 Sex: M Assigned Patient Location: RAD Current Patient Location: [facility] Accession/Order Number: [id number] Exam Date: 03/01/2024 16:35 Report Date: 03/02/2024 07:10 At the request of: SHAIKH REBECCA Procedure: XR shoulder LT min 2V PROCEDURE: XR shoulder LT min 2V COMPARISON: None. HISTORY: Chronic left shoulder pain M25.562 FINDINGS: BONES:No acute fracture or dislocation. Mild acromioclavicular and glenohumeral joint osteoarthritis SOFT TISSUES:Negative. No visible soft tissue swelling. EFFUSION:None visible. OTHER: Negative. XR/XR shoulder LT min 2V IMPRESSION: Mild osteoarthritis Electronically authenticated by: MELISSA OVIEDO Date: 03/02/2024 07:10
--- NOTE | 2024-03-01 | XR_ITS ---
[address] [address] Patient Name: MARTI MORGAN MRN: [id number] date: 1955 Sex: M Assigned Patient Location: [facility] Current Patient Location: Accession/Order Number: [id number] Exam Date: 03/01/2024 16:35 Report Date: 03/02/2024 07:09 At the request of: SHAIKH REBECCA Procedure: XR knee LT 3V PROCEDURE: XR knee LT 3V COMPARISON: None. HISTORY: Chronic Left knee pain M25.512 FINDINGS: BONES:No acute fracture or dislocation. Severe osteoarthritis of the anterior compartment with [id number] articulation and marginal osteophyte formation SOFT TISSUES:Negative. No visible soft tissue swelling. EFFUSION:None visible. OTHER: Negative. XR/XR knee LT 3V IMPRESSION: Severe patellofemoral osteoarthritis Electronically authenticated by: MELISSA OVIEDO Date: 03/02/2024 07:09
--- OUTSIDE RECORDS SUMMARY | 2024-03-01 16:41 | XMS_ITS | CCD ---
Author Organization [facility] Care Team Providers Care Yarn Finisher Name Role Phone SHAIKH Best CARLOS Admitting Unavailable SHAIKH Best CARLOS Attending Unavailable SHAIKH Best CARLOS Primary Care Unavailable SHAIKH Best CARLOS Consulting Unavailable SHAIKH CARLOS Primary Care Physician SHAIKH CARLOS Referring Unavailable RAMIN SIERRA Attending Unavailable Shaikh Carols Primary Care Unavailable Mora Godoy Attending Unavailable Asajanet Imad Admitting Unavailable LORIE PATTON Attending Unavailable SHAIKH CARLOS Attending Unavailable SHAIKH CARLOS Attending Unavailable Medications Current Medications Medication Drug Class(es) [...] 12:00am Start: 2023 take 2 tablets by mo ut once daily as needed Cialis 10 mg Tab 20 mg = 2 tab(s), Oral, Daily, PRN for erectile dysfunction, Refills(s) 0 Start Date: 05/20/23 Status: Ordered tamsulosin hydrochloride 0.4 mg oral capsule (2 sources) alpha-Adrenergic Fadia Start: 10-09-2023 take 0.4 mg by mouth twice daily Tamsulosin Active 0.4 MG PO Twice daily October 09, 2023 12:00am Start: 2023 take 1 capsule by mo uth twice daily tamsulosin 0.4 mg Cap 0.4 mg = 1 cap(s), Oral, BID, # 60 tab(s), Refills(s) 6, Pharmacy: [facility], 192, cm, 05/20/23 10:49:00 EDT, Height/Length Dosing, 110, kg, 05/20/23 10:49:00 EDT, Weight Dosing Start Date: 05/20/23 [...] source) Long-term current use of anticoagulant; Translations: [detention (current) use of anticoagulants] Onset: 2023 Episodic [...] 0 10-09-2023 Glucose [Mass/Vol] 97 mg/dL Normal [facility] Comment on above: Result Comment: [facility] Glucose Reference Range is dependent on time and content of last meal. Glucose of more than 200 mg/dL in a nonstressed, ambulatory subject supports the diagnosis of Diabetes Mellitus. PERFORMED BY: [facility] [address] [place] [address] PATHOLOGIST FILM OR VIDEOTAPE EDITOR VÍCTOR FRANKLIN M.D. Performed By: #### G LULS #### Point of Care testing , Physician Referralon 023 Physician Referral [id number] :127 Normal [facility] Screenson 05-21-2023 Screens [id number] :127 Normal [facility] Screens [id number]: 127 Normal [facility] Ambulatory Visit Summaryon 0 2023 Ambulatory Visit Summary MARTI MORGAN :1955 Visit Date:2023 Ambulatory Visit Instructions Your Diagnosis BPH with urinary obstruction ED (erectile dysfunction) Feeling of incomplete bladder emptying Prostate cancer screening Anticoagulated Tests Performed Urnls Dip Stick Auto w/o Microscopy POC 48927 Your Care Team Attending Physician - RAMIN SIERRA PA-C Primary Care Physician - SHAIKH CARLOS MD [...] When: Comments: Sched Cysto/TRUS w/KML Where: [address] [place] [address] Medications What How Much When Instructions Changed tadalafil (Cialis 10 mg Tab) 2 Tablets By Mouth Every day as needed for for erectile dysfunction Changed tamsulosin (tamsulosin 0.4 mg Cap) 1 Capsules By Mouth 2 times a day Pickup at [facility] 1420 Unchanged atorvastatin (atorvastatin 20 mg Tab) Contact [...] physician if questions or concerns Pharmacy Information [facility]: [address] [place], [place] [id number] [phone] Test Results Urnls Dip Stick Auto w/o Microscopy POC 10854 (2023) Bilirubin Urine Dipstick - Negative Blood Urine Dipstick - Negative Glucose Urine Dipstick - Negative Ketones Urine Dipstick - Negative Leukocytes Urine Dipstick - Negative Nitrite Urine Dipstick - Negative Protein Urine Dipstick - Negative Specific [place] Urine Dipstick - 1.010 Urine Appearance Urine [...] more com (more content not included)... Normal [facility] Lab Reportson 2023 Lab Reports [id number]:1 27 Normal [facility] Lab Reports [id number]#[id number]: 127 Normal [facility] Patient Educationon 05-20-20 23 Patient Education Urology [...] Follow these instructions at home: ? Take nodn-rob-jqliffy and prescription medicines only as told by [...] the medicine (more content not included)... Normal [facility] CBC AUTO DIFFon 06-25-2022 BASO # 0.1 103/ul Normal 0.0-0.1 [facility] Comment on above: Performed By: #### C BC #### [facility] [address] [address] [address] Renee Prado Basophils/100 WBC (Bld) 0.8 % Normal 0.2-2.0 [facility] Comment on above: Performed By: #### C BC #### [facility] [address] [address] [address] Renee Prado EO # 0.3 103/ul Normal 0.0-0.7 [facility] Comment on above: Performed By: #### C BC #### [facility] [address] [place] [address] Dr. Renee Prado Eosinophils/100 WBC (Bld) 3.3 % Normal 0.9-7.0 [facility] Comment on above: Performed By: #### C BC #### [facility] [address] [place] [address] Dr. Renee Prado Erythrocyte distribution width (RBC) [Ratio] 13.9 % Normal 11.0-15.0 [facility] Comment on above: Performed By: #### C BC #### [facility] [address] [place] [address] Dr. Renee Prado Hematocrit (Bld) [Volume fraction] 41.9 % Critically low 42.0-54.0 [facility] Comment on above: Performed By: #### C BC #### [facility] [address] [place] [address] Dr. Renee Prado Hemoglobin (Bld) [Mass/Vol] 13.8 g/dL Critically low 14.0-18.0 [facility] Comment on above: Performed By: #### C BC #### [facility] [address] [place] [address] Dr. Renee Prado IG # 0.02 10e3/ul Normal 0.00-0.03 [facility] Comment on above: Performed By: #### C BC #### [facility] [address] [place] [address] Dr. Renee Prado IG % 0.2 % Normal 0.0-0.5 [facility] Comment on above: Performed By: #### C BC #### [facility] [address] [place] [address] Dr. Renee Prado LYMPH # 1.8 103/ul Normal 1.2-3.8 [facility] Comment on above: Performed By: #### C BC #### [facility] [address] [place] [address] Dr. Renee Prado Lymphocytes/100 WBC (Bld) 19.9 % Critically low 20.5-60.0 [facility] Comment on above: Performed By: #### C BC #### [facility] [address] [place] [address] Dr. Renee Prado MANUAL DIFF REQ NO Normal [facility] Comment on above: Performed By: #### C BC #### [facility] [address] [place] [address] Dr. Renee Prado MCH (RBC) [Entitic mass] 28.9 pg Normal 25.9-34.0 [facility] Comment on above: Performed By: #### C BC #### [facility] [address] [place] [address] Dr. Renee Prado MCHC (RBC) [Mass/Vol] 32.9 g/dL Normal 29.9-35.2 [facility] Comment on above: Performed By: #### C BC #### [facility] [address] [place] [address] Dr. Renee Prado MCV (RBC) [Entitic vol] 87.7 fL Normal 80.0-94.0 [facility] Comment on above: Performed By: #### C BC #### [facility] [address] [place] [address] Dr. Renee Prado MONO # 0.6 103/ul Normal 0.3-0.8 [facility] Comment on above: Performed By: #### C BC #### [facility] [address] [place] [address] Dr. Renee Prado Monocytes/100 WBC (Bld) 6.8 % Normal 1.7-12.0 [facility] Comment on above: Performed By: #### C BC #### [facility] [address] [place] [address] Dr. Renee Prado NEUT # 6.1 103/ul Normal 1.4-6.5 [facility] Comment on above: Performed By: #### C BC #### [facility] [address] [place] [address] Dr. Renee Prado Neutrophils/100 WBC (Bld) 69.0 % Normal 43.0-75.0 [facility] Comment on above: Performed By: #### C BC #### [facility] [address] [place] [address] Dr. Renee Prado Platelet mean volume (Bld) [Entitic vol] 9.4 fL Critically low 9.5-13.5 [facility] Comment on above: Performed By: #### C BC #### [facility] [address] [place] [address] Dr. Renee Prado PLT 269 103/ul Normal 150-450 [facility] Comment on above: Performed By: #### C BC #### [facility] [address] [place] [address] Dr. Renee Prado RBC 4.78 106/ul Normal 4.70-6.10 [facility] Comment on above: Performed By: #### C BC #### [facility] [address] [place] [address] Dr. Renee Prado WBC 8.9 103/ul Normal 4.0-11.0 [facility] Comment on above: Performed By: #### C BC #### [facility] [address] [place] [address] Dr. Renee Prado CREATININE URINEon 2 URINE CREAT 51.03 mg/dL Normal 20.00-300.00 [facility] Comment on above: Performed By: #### C REAU #### [facility] [address] [place] [address] Dr. Renee Prado GLYCOHEMOGLOBIN A1Con 2021 ADA RECOMMENDATION SEE BELOW Normal [place] Comment on above: Result Comment: ADA RECOMMENDED LIMIT 4.0 - 6.0 ADA THERAPEUTIC TARGET < 7.0 ACTION SUGGESTED > 7.0 Performed By: #### A 1C #### [facility] [address] [place] [address] Dr. Renee Prado Glucose [Mass/Vol] 128 mg/dL Normal [facility] Comment on above: Performed By: #### A 1C #### [facility] [address] [place] [address] Dr. Renee Prado HbA1c (Bld) [Mass fraction] 6.1 % Normal 4.5-6.2 [facility] Comment on above: Performed By: #### A 1C #### [facility] [address] [place] [address] Dr. Renee Prado LIPID PROFILEon 06-25-2022 CHOL-HDL RATIO NORM SEE BELOW Normal [facility] Comment on above: Result Comment: 3.3 - 4.4 LOW RISK 4.4 - 7.1 AVERAGE RISK 7.1 - 11.0 MODERATE RISK >11.0 HIGH RISK Performed By: #### C MP, LIPID #### [facility] [address] [place] [address] Dr. Renee Prado Cholesterol [Mass/Vol] 158 mg/dL Normal <=200 [facility] Comment on above: Performed By: #### C MP, LIPID #### [facility] [address] [place] [address] Dr. Renee Prado Cholesterol in HDL [Mass/Vol] 51 mg/dL Normal 40-60 [facility] Comment on above: Performed By: #### C MP, LIPID #### [facility] [address] [address] [address] Renee Prado Cholesterol in LDL [Mass/Vol] 92.6 mg/dL Normal [facility] Comment on above: Performed By: #### C MP, LIPID #### [facility] [address] [place] [address] Dr. Renee Prado Cholesterol.total/Ch olesterol in HDL [Mass ratio] 3.1 {ratio} Normal [facility] Comment on above: Performed By: #### C MP, LIPID #### [facility] [address] [address] [address] Renee Prado HDL NORMAL > or = 60 mg/dl - LO W CARDIOVASCULAR RISK <40 mg/dl - HIGH CARDIOVASCULAR RISK Normal [facility] Comment on above: Performed By: #### C MP, LIPID #### [facility] [address] [place] [address] Dr. Renee Prado LDL CALC NORMAL SEE BELOW Normal [facility] Comment on above: Result Comment: <100 mg/dl OPTIMAL 100 - 129 mg/dl NEAR OR ABOVE OPTIMAL 130 - 159 mg/dl BORDERLINE HIGH 160 - 189 mg/dl HIGH >190 mg/dl VERY HIGH Performed By: #### C MP, LIPID #### [facility] [address] [place] [address] Dr. Renee Prado Triglyceride [Mass/Vol] 72 mg/dL Normal <=150 [facility] Comment on above: Performed By: #### C MP, LIPID #### [facility] [address] [address] [address] Renee Prado VLDL CALC 14.4 mg/dL Normal [facility] Comment on above: Performed By: #### C MP, LIPID #### [facility] [address] [place] [address] Dr. Renee Prado MICROALBUMIN, RAND URon 10- mALB <0.5 Normal <=30.0 [facility] Comment on above: Performed By: #### M ALBR #### [facility] [address] [place] [address] Dr. Renee Prado PROF 14(COMP METB)on 022 Albumin [Mass/Vol] 4.0 g/dL Normal 3.4-5.0 [place] Comment on above: Performed By: #### C MP, LIPID #### [facility] [address] [place] [address] Dr. Renee Prado Albumin/Globulin [Mass ratio] 1.3 {ratio} Normal [facility] Comment on above: Performed By: #### C MP, LIPID #### [facility] [address] [address] [address] Renee Prado ALP [Catalytic activity/Vol] 40 U/L Critically low 46-116 [facility] Comment on above: Performed By: #### C MP, LIPID #### [facility] [address] [address] [address] Renee Prado ALT [Catalytic activity/Vol] 29 U/L Normal 16-63 [facility] Comment on above: Performed By: #### C MP, LIPID #### [facility] [address] [address] [address] Renee Prado Anion gap [Moles/Vol] 8.4 mmol/L Normal [facility] Comment on above: Performed By: #### C MP, LIPID #### [facility] [address] [address] [address] Renee Prado AST [Catalytic activity/Vol] 16 U/L Normal 15-37 [facility] Comment on above: Performed By: #### C MP, LIPID #### [facility] [address] [address] [address] Renee Prado Bilirubin [Mass/Vol] 0.5 mg/dL Normal 0.2-1.0 [facility] Comment on above: Performed By: #### C MP, LIPID #### [facility] [address] [address] [address] Renee Prado Calcium [Mass/Vol] 9.4 mg/dL Normal 8.5-10.1 [place] Comment on above: Performed By: #### C MP, LIPID #### [facility] [address] [address] [address] Renee Prado Chloride [Moles/Vol] 103 mmol/L Normal 98-107 [facility] Comment on above: Performed By: #### C MP, LIPID #### [facility] [address] [address] [address] Renee Prado CO2 [Moles/Vol] 30.3 mmol/L Normal 21.0-32.0 [facility] Comment on above: Performed By: #### C MP, LIPID #### [facility] [address] [address] [address] Renee Prado Creatinine [Mass/Vol] 0.83 mg/dL Normal 0.70-1.30 [facility] Comment on above: Performed By: #### C MP, LIPID #### [facility] [address] [address] [address] Renee Prado EGFR-AF HONG KONGER >65 Normal >=[address] [facility] Comment on above: Performed By: #### C MP, LIPID #### [facility] [address] [address] [address] Renee Prado EGFR-NON AF [place]ER >65 Normal >=60 [facility] Comment on above: Performed By: #### C MP, LIPID #### [facility] [address] [address] [address] Renee Prado Globulin (S) [Mass/Vol] 3.2 g/dL Normal [facility] Comment on above: Performed By: #### C MP, LIPID #### [facility] [address] [address] [address] Renee Prado Glucose [Mass/Vol] 88 mg/dL Normal 74-106 [place] Comment on above: Performed By: #### C MP, LIPID #### [facility] [address] [address] [address] Renee Prado Potassium [Moles/Vol] 3.7 mmol/L Normal 3.5-5.1 [facility] Comment on above: Performed By: #### C MP, LIPID #### [facility] [address] [address] [address] Renee Prado Protein [Mass/Vol] 7.2 g/dL Normal 6.4-8.2 [facility] Comment on above: Performed By: #### C MP, LIPID #### [facility] [address] [address] [address] Renee Prado Sodium [Moles/Vol] 138 mmol/L Normal 136-145 [facility] Comment on above: Performed By: #### C MP, LIPID #### [facility] [address] [place], [place] [address] Dr. Renee Prado Urea nitrogen [Mass/Vol] 12.0 mg/dL Normal 7.0-18.0 [facility] Comment on above: Performed By: #### C MP, LIPID #### [facility] [address] [place], [place] [address] Dr. Renee Prado Urea nitrogen/Creatinine [Mass ratio] 14.5 mg/mg Normal [facility] Comment on above: Performed By: #### C MP, LIPID #### [facility] [address] [place], [place] [address] Dr. Renee Prado Vital Signs Date Time Vital Sign Value Performing Clinician Faci lity 10-09-2023 11:45-0500 Diastolic blood pressure 69 mm[Hg] [facility] 10-09-2023 11:45-0500 Heart rate 69 /min [facility] 10-09-2023 11:45-0500 Respiratory rate 18 /min [facility] 10-09-2023 11:45-0500 SaO2% (BldA) [Mass fraction] 99 % [facility] 10-09-2023 11:45-0500 Systolic blood pressure 116 mm[Hg] [facility] 10-09-2023 09:23-0500 Body height 193.04 cm [facility] 10-09-2023 09:23-0500 Body weight 108.86 kg [facility] 2023 10:47-0400 Blood Pressure Location RAMIN SIERRA [facility] 2023 10:47-0400 Diastolic blood pressure 80 mm[Hg] RAMIN SIERRA [facility] 2023 10:47-0400 Heart rate 78 /min RAMIN SIERRA [facility] 2023 10:47-0400 Respiratory rate 16 /min RAMIN SIERRA [facility] 2023 10:47-0400 Systolic blood pressure 132 mm[Hg] RAMIN SIERRA [facility] Encounters Encounter Date Encounter Type Care Provider Facility Start: 02-25-2024 End: 02-25-2024 ambulatory MCKINNEY FAWWAD Not Available Start: 10-09-2023 End: 10-09-2023 ambulatory Mckinney Fawwad Facility:[facility] Start: 10-09-2023 Non-patient / Non-visit [facility] G[facility]ology Work Phone: Start: 08-26-2023 End: 08-26-2023 ambulatory FAKvngWAD Not Available Start: 08-04-2023 End: 08-04-2023 ambulatory LORIE B APLING Not Available Start: 2023 End: 05-21-2023 ambulatory MCKINNEY FAWWAD Facility:[facility] Start: 2023 End: 2023 Patient encounter procedure RAMIN SIERRA [facility] Start: 03-05-2023 ambulatory MCKINNEY FAWWAD Facility: [facility] Start: 06-25-2022 End: 06-26-2022 ambulatory SHAIKH Best FAWWAD Facility:[facility] Procedures Date Procedure Procedure Detail Performing Clinician Start: 06-25-2022 PSA screening SHAIKH DUNCAN ORDONEZ Comment on above: Performed By: #### P SAD #### [facility] [address] [place] [address] Dr. Renee Prado Carpal tunnel syndro me (disorder) RAMIN SIERRA Colonoscopy RAMIN SIERRA Tonsillectomy RAMIN SIERRA Plan of Treatment Date Care Activity Detail Author Start: 10-09-2023 [facility] Immunizations Immunization Date Immunization Notes Care Provider Duncan castro 07-04-2022 SARS-CoV-2 (COVID-19 ) [id number] RAMIN MARIELA [facility] 06-15-2022 influenza virus vaccine, unspecified formulation RAMIN MARIELA [facility] 12-07-2020 SARS-CoV-2 (COVID-19 ) mRNA BNT-162b2 vax RAMIN MARIELA [facility] 11-17-2020 SARS-CoV-2 (COVID-19 ) mRNA BNT-162b2 vax RAMIN MARIELA [facility] Comment on above: Result Comment: 2022: [id number] 06-30-2020 influenza virus vaccine, unspecified formulation RAMIN MARIELA [facility] 06-30-2020 tetanus toxoid, redu esther diphtheria toxoid, and acellular pertussis vaccine, adsorbed RAMIN MARIELA [facility] 03-15-2020 zoster vaccine recombinant RAMIN MARIELA [facility] 10-11-2019 zoster vaccine recombinant RAMIN MARIELA [facility] 07-29-2019 influenza virus vaccine, unspecified formulation RAMIN MARIELA [facility] 07-17-2018 influenza virus vaccine, unspecified formulation RAMIN MARIELA [facility] 12-19-2016 zoster vaccine, live JENNIFE R MARIELA [facility] Payers Date Payer Category Payer Self-pay 1957 Private Health Insurance [id number] 1955 Unknown [id number] 2.16.84 [id number] 1955 Unknown [id number] [id number] 1955 Unknown [id number] 2.16.84 [id number] 1955 Unknown [id number] 1955 Unknown [id number] Unknown MMO [id number] Unknown [id number] 2.16.8 [id number] Social History Date Type Detail Facility Start: 2023 End: 10-09-2023 Tobacco smoking status Never smoked tobacco (finding) [facility] Tobacco smoking status Never [facility] Sex Assigned At Male [facility] Start: 1955 Sex Assigned At Male [facility] Functional Status Date Assessment Result Facility 2023 Functional Status N/A [facility] Clinical Note 2023 Note Date & Type Note Facility 2023 Note Chief Complaint Referral *BPH HPI Staff Clinical Program Manager referral for BPH by Dr. Carlos. PSA [...] Skin: No rashes or suspicious lesions Assessment/Plan Clinical Program Manager referral for BPH by Dr. Carlos 1. [...] recommend MIPP sooner rather than later. Ordered: 45484 Measure Post Void residual urine and/or bladder capacity by US- non-imaging E&M of New Patient Moderate 45-59 Min 73020 Urnls Dip Stick Auto w/o Microscopy POC 29468 2. ED (erectile dysfunction) (N52.9: Male erectile [...] E&M of New Patient Moderate 45-59 Min 85467 3. Feeling of incomplete bladder emptying (R39.14: Feeling of incomplete bladder emptying) Pt states he does not feel empty, initial PVR today is 430mL, pt voided a second time about 15 mins later (unprompted) and second PVR 23mL. -See #1 Ordered: E&M of New Patient Moderate 45-59 Min 43921 4. Prostate cancer screening (Z12.5: Encounter for screening for malignant neoplasm of prostate) PSA 06/21/19 - 0.90 08/21/20 - 0.89 06/25/22 - 0.79 -due again in 1 month. PCP manages. 5. 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 Ordered: E&M of New Patient Moderate 45-59 Min 06269 Orders: tamsulosin, 0.4 mg = 1 cap(s), Oral, BID, # 60 tab(s), Refills(s) 6, Pharmacy: [facility], 192, cm, 05/20/23 10:49:00 EDT, Height/Length Dosing, 110, kg, 05/20/23 10:49:00 EDT, Weight Dosing Follow up w/Cysto/TRUS w/KML. All questions/concerns were discussed. Pt to call the office if h (more content not included)... [facility] Comment on above: Result Comment: Elec tronically Signed By: RAMIN SIERRA PA-C\.br\Date and Time Signed: 05/20/23 11:49 EDT\.br\Electronically Co-Signed By: Lisa Parisi\.br\Date and Time Co-Signed: 05/20/23 11:40 EDT Hospital [...] urethra. Follow these instructions at home: Take nfxf-wvk-jccuzpa and prescription medicines only as told by [...] provider. Document Revised: 03/13/2022 Document Reviewed: 03/13/2022 [employer] Patient Education 2022 [employer]. Follow Up Care 03/05/2023 09:34:37 With:RAMIN SIERRA PA-C, URL Address: [address] [place] [address] When: Unknown Comments:Sched Cysto/TRUS w/KML [facility] Evaluation + Plan note Note Date & Type Note Facility Evaluation + Plan note No data available for this section [facility] Evaluation note Note Date & Type Note Facility Evaluation note No assessment information [facility] [place] Work Phone: Hospital Discharge instructions Note Date [...] stomach, liquids high in sugar content (soda, Dnaiel-Aid, non-acid juices) are recommended. - You can resume normal activities tomorrow. FOLLOW UP & RECOMMENDATIONS: -Notify the doctor if you have any problems. -Repeat colonoscopy in 5 years. -Follow up with PCP. -Office number [phone]. [facility] Work Phone: Progress note Note Date & Type Note Facility Progress note No data available for this section [facility] Summary Purpose Family History No Family History [...] and content) DATE CREATED AUTHOR 06/30/2022 [facility] DATE CREATED AUTHOR AUTHOR'S ORGANIZ ATION 05/21/2023 [facility] DATE CREATED AUTHOR AUTHOR'S ORGANIZ ATION 10/17/2023 [facility] DATE CREATED AUTHOR AUTHOR'S ORGANIZ ATION 02/27/2024 [facility] EPIC Patient Care team informatio n (unrecognized section [...] BE BASED ON THE PRIMARY CLINICAL RECORDS. [facility] [employer] [facility]. provides no warranty or guarantee of the accuracy or completeness of information in this document.
== END 2024-03-01 16:25 | disposition home or self-care (01) ==
LOC: RAD 16:25
PROVIDERS: PCP Internal Medicine; Visit Provider Internal Medicine
DX: M25.512 Pain in left shoulder (principal); G89.29 Other chronic pain; M25.562 Pain in left knee; M17.12 Unilateral primary osteoarthritis, left knee
CPT/HCPCS: 73030; 73562

== ENCOUNTER 2024-12-14 16:26 | Outpatient (OUT) | payer OTHER, SELFPAY ==
--- NOTE | 2024-12-14 | US_ITS ---
The [address] [address] Patient Name: MARTI MORGAN MRN: [id number] date: 1955 Sex: M Assigned Patient Location: US Current Patient Location: US Accession/Order Number: [id number] Exam Date: 12/14/2024 20:49 Report Date: 12/14/2024 20:59 At the request of: ALEXI MORA NP Procedure: US scrotum SCROTAL ULTRASOUND WITH DUPLEX IMAGING COMPARISON: None CLINICAL DATA: Left scrotal swelling for the past 2 days. The right testis measures 4.0 x 2.7 x 3.1 cm . The left testis measures 4.4 x 2.8 x 2.6 cm. There is normal testicular echogenicity. No intratesticular masses are identified. There is documentation of bilateral duplex and color Doppler testicular blood flow. A small right epididymal cyst is visualized measuring 2 mm . There are mildly prominent vessels lateral to the right testicle with increased flow on Valsalva. This may be varicocele. There is a small left hydrocele measuring approximately 5.2 x 1.4 x 2.7 cm. There is a large left hydrocele which measures approximately 8.4 x 4.9 x 6.6 cm. US/US scrotum IMPRESSION: NO INTRATESTICULAR MASS OR TORSION. POSSIBLE RIGHT VARICOCELE. BILATERAL HYDROCELES, LARGER ON THE LEFT. Impression dictated by: Rosemary Em M.D.12/14/2024 8:59 PM Dictation Location: [place] [address] Electronically authenticated by: [id number] Y Date: 12/14/2024 20:59
== END 2024-12-14 16:27 | disposition home or self-care (01) ==
LOC: US 16:26
PROVIDERS: PCP Nurse Practitioner; Visit Provider Nurse Practitioner
DX: N50.89 Other specified disorders of the male genital organs (principal); N43.3 Hydrocele, unspecified
CPT/HCPCS: 76870

== ENCOUNTER 2024-12-18 08:01 | Outpatient (OUT) | payer OTHER, SELFPAY ==
--- OUTSIDE RECORDS SUMMARY | 2024-12-18 08:05 | XMS_ITS | CCD ---
Author Organization [facility] Care Team Providers Care Conche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 Name Role Phone SHAIKH Best CARLOS Admitting Unavailable SHAIKH Best CARLOS Attending Unavailable SHAIKH Best CARLOS Primary Care Unavailable SHAIKH Best CARLOS Consulting Unavailable SHAIKH CARLOS Primary Care Physician SHAIKH CARLOS Referring Unavailable CLARISSA SIERRA Attending Unavailable Shaikh Carlos Primary Care Unavailable Asaad Imad Attending Unavailable Asaad Imad Admitting Unavailable Shen Perez MD Primary Care Provider Debbie Chavez NP Unavailable [phone] Shaikh Carlos MD Primary Care Provider Scott OSCAR, Debbie Unavailable SHAIKH CARLOS Attending Unavailable LORIE MESSER Attending Unavailable LORIE MESSER Attending Unavailable LORIE MESSER Attending Unavailable LORIE MESSER Attending Unavailable DEBBIE CHAVEZ Attending UnavailSOPHIE Garcia Attending Unavailable Medications Current Medications Medication Drug Class(es) Dates Sig (Normalized) Sig (Original) aspirin 81 mg delayed release oral tablet (20 sources) Platelet Aggregation Inhibitor, Nonsteroidal Anti-inflammatory Drug Start: 08-26-2023 End: 08-12-2025 take 1 tablet by mouth once daily aspirin 81 MG EC tablet Indications: TIA (transient ischemic attack) Take 1 tablet (81 mg) by mouth Daily 90 tablet 3 08/12/2024 08/12/2025 Active atorvastatin 20 mg oral tablet (20 sources) HMG-CoA Reductase Inhibitor Start: 02-11-2024 End: 08-10-2024 take 1 tablet by mouth once daily atorvastatin (Lipitor) 20 MG tablet Indications: Hyperlipidemia, unspecified hyperlipidemia type (CMS/HCC) Take 1 tablet (20 mg) by mouth Daily 90 tablet 1 08/10/2024 Active Start: 10-09-2023 take 20 mg by mouth once daily Atorvastatin Active 20 MG PO Daily October 09, 2023 12:00am Start: 2023 atorvastatin 2 0 mg Tab Refills(s) 0 Start Date: 05/20/23 Status: Ordered cetirizine hydrochloride 10 mg oral tablet (7 sources) Histamine-1 Receptor Antagonist Start: 08-24-2024 End: 12-13-2024 take 1 tablet by mouth once daily cetirizine (ZyrTEC) 10 MG tablet Indications: Acute rhinitis Take 1 tablet (10 mg) by mouth Daily 30 tablet 2 08/24/2024 12/13/2024 Discontinued (Therapy completed) ferrous sulfate 325 mg oral tablet (20 sources) Start: 03-10-2024 End: 08-24-2024 take 1 tablet by mouth at mealtime ferrous sulfate (FeroSul) 325 (65 Fe) MG tablet Indications: Iron deficiency Take 1 tablet (325 mg) by mouth in the morning. Take with meals. 90 tablet 08/24/2024 Active Start: 10-09-2023 take 325 mg by mouth once payam y Ferrous Sulfate Active 325 MG PO Daily October 09, 2023 12:00am fluticasone propionate 0.05 mg/actuat metered dose nasal spray (9 sources) Corticosteroid Start: 08-24-2024 End: 08-24-2025 take 1-2 spray(s) nasal route once daily fluticasone (Flonase) 50 MCG/ACT nasal spray Indications: Acute rhinitis Administer 1-2 sprays into each nostril Daily Shake gently. Before first use, prime pump. After use, clean tip and replace cap. 16 g 2 08/24/2024 08/24/2025 Active meloxicam 15 mg oral tablet (20 sources) Nonsteroidal Anti-inflammatory Drug Start: 11-29-2024 take 1 tablet by mouth once daily meloxicam (Mobic) 15 MG tablet Indications: Other chronic pain Take 1 tablet (15 mg) by mouth Daily 90 tablet 11/29/2024 Active Start: 01-19-2024 End: 08-24-2024 take 1 tablet by mouth once daily meloxicam (Mobic) 15 MG tablet Indications: Other chronic pain Take 1 tablet (15 mg) by mouth Daily 90 tablet 08/24/2024 Active Start: 10-09-2023 take 15 mg by mouth once daily Meloxicam Active 15 MG PO Daily October 09, 2023 12:00am Start: 09-27-2019 meloxicam 15 m g Tab Refills(s) 0 Start Date: 05/20/23 Status: Ordered metFORMIN hydrochloride 500 mg oral tablet (20 sources) Biguanide Start: 2023 End: 09-08-2024 take 1 tablet by mouth in the morning, then take 1 tablet by mouth at mealtime metFORMIN (Glucophage) 500 MG tablet Indications: Prediabetes TAKE 1 TABLET BY MOUTH IN THE MORNING AND 1 IN THE EVENING WITH MEALS 180 tablet 09/08/2024 Active take 1 tablet by abdoul th once daily at breakfast metFORMIN (GLUCOPHAGE) 500 mg tablet Rufino e 500 mg by mouth daily with breakfast. 0 Active 24 hr metoprolol succinate 50 mg extended release oral tablet (20 sources) beta-Adrenergic Fadia Start: 04-14-2024 End: 08-30-2024 take 1 tablet by mouth once daily metoprolol succinate XL (Toprol-XL) 50 MG 24 hr tablet Indications: Primary hypertension (CMS/HCC) Take 1 tablet (50 mg) by mouth Daily 90 tablet 08/30/2024 Active Start: 10-09-2023 take 50 mg by mouth once daily Metoprolol Succinate Active 50 MG PO Daily October 09, 2023 12:00am Start: 2023 take 1 mg by mouth once daily metoprolol 50 mg ER Tab mg tab(s), Oral, Daily, Refills(s) 0 Start Date: 05/20/23 Status: Ordered Start: 01-21-2022 take 1 tablet by abdoul th every twenty-four hours in the morning metoprolol succinate XL (TOPROL XL) 25 mg 24 hr tablet Take 1 tablet (25 mg total) by mouth in the morning. 90 tablet 2 01/21/2022 Active Multivitamin preparation (1 source) Start: 2023 multivitamin Refill(s) 0 Start Date: 05/20/23 Status: Ordered tadalafil 10 mg oral tablet (20 sources) Phosphodiesterase 5 Inhibitor Start: 10-09-2023 Tadalafil Active 10 MG PO As Directed October 09, 2023 12:00am Start: 2023 tadalafil (Amberly lis) 10 MG tablet Take 20 mg by mouth. 2023 Active tamsulosin hydrochloride 0.4 mg oral capsule (20 sources) alpha-Adrenergic Fadia Start: 11-29-2024 End: 02-27-2025 take 1 capsule by mouth every twenty-four hours in the morning tamsulosin (Flomax) 0.4 MG 24 hr capsule Indications: BPH with urinary obstruction Take 1 capsule (0.4 mg) by mouth in the morning and 1 capsule (0.4 mg) before bedtime. 180 capsule 11/29/2024 02/27/2025 Active Start: 02-25-2024 End: 11-22-2024 take 1 capsule by mouth every twenty-four hours in the morning tamsulosin (Flomax) 0.4 MG 24 hr capsule Indications: BPH with urinary obstruction Take 1 capsule (0.4 mg) by mouth in the morning and 1 capsule (0.4 mg) before bedtime. 180 capsule 08/24/2024 11/22/2024 Active Start: 10-09-2023 take 0.4 mg by mouth twice edward ly Tamsulosin Active 0.4 MG PO Twice daily October 09, 2023 12:00am Start: 2023 take 1 capsule by mo uth twice daily tamsulosin 0.4 mg Cap 0.4 mg = 1 cap(s), Oral, BID, # 60 tab(s), Refills(s) 6, Pharmacy: [id number], 192, cm, 05/20/23 10:49:00 EDT, Height/Length Dosing, 110, kg, 05/20/23 10:49:00 EDT, Weight Dosing Start Date: 05/20/23 Status: Ordered Completed/Discontinued Medications Medication Drug Class(es) Dates Sig (Normalized) Sig (Original) clopidogrel 75 mg oral tablet (3 sources) P2Y12 Platelet Inhibitor Start: 10-09-2023 End: 10-09-2023 take 75 mg by mouth once daily Clopidogrel Discontinued 75 MG PO Daily October 09, 2023 12:00am October 09, 2023 9:29am Start: 2023 clopidogrel 75 mg Tab Refills(s) 0 Start Date: 05/20/23 Status: Ordered diclofenac sodium 0.01 mg/mg topical gel (14 sources) Nonsteroidal Anti-inflammatory Drug Start: 2023 End: 08-24-2024 diclofenac sodium 1 % gel Refill(s) 0 2023 08/24/2024 Discontinued (Drug interaction) 1 ml methylPREDNISolone acetate 40 mg/ml injection (4 sources) Corticosteroid Start: 06-23-2024 End: 06-23-2024 methylPREDNISolone acetate (DEPO-Medrol) injection 40 mg Start: 06-23-2024 End: 06-23-2024 40 mg, Intra-articular, Once PRN Procedure, Starting on Fri06/23/24 at 0806, For 1 dose Problems Active Problems Problem Classification Problem Date Documented Da te Episodic/Chronic Calculus of urinary tract (1 source) History of calculus of kidney 2023 Episodic Diabetes mellitus without complication (2 sources) Type 2 diabetes mellitus without complications; Translations: [Diabetes mellitus] Onset: 06-28-2022 2023 Chronic Disorders of lipid metabolism (20 sources) Hyperlipidemia, unspecified; Translations: [Hyperlipidemia] Onset: 06-28-2022 2023 Chronic Essential hypertension (20 sources) Essential (primary) hypertension; Translations: [Hypertensive disorder] Onset: 06-25-2022 Chronic Genitourinary symptoms and ill-defined conditions (1 source) Sensation as if bladder still full; Translations: [Feeling of incomplete bladder emptying] Onset: 2023 Episodic Hyperplasia of prostate (20 sources) Benign prostatic hyperplasia with lower urinary tract symptoms; Translations: [Benign prostatic hypertrophy with outflow obstruction] Onset: 06-28-2022 Chronic Nutritional deficiencies (4 sources) Iron deficiency; Translations: [Iron deficiency] 06-21-2024 Episodic Osteoarthritis (3 sources) Arthritis; Translations: [Arthritis of left knee] 2023 Chronic Other aftercare (1 source) Long-term current use of anticoagulant; Translations: [group home (current) use of anticoagulants] Onset: 2023 Episodic Other male genital disorders (20 sources) Male erectile dysfunction, unspecified; Translations: [Erectile dysfunction] Onset: 2023 Chronic Other male genital disorders (8 sources) Swelling of left half of scrotum; Translations: [Other specified disorders of the male genital organs] Onset: 12-13-2024 12-13-2024 Episodic Other male genital disorders (3 sources) Adult hydrocele; Translations: [Hydrocele, unspecified] Onset: 12-17-2024 12-17-2024 Episodic Other nervous system disorders (4 sources) Chronic pain; Translations: [Other chronic pain] 07-14-2024 Chronic Other non-traumatic joint disorders (2 sources) Arthritis of left knee 06-23-2024 Chronic Other nutritional; endocrine; and metabolic disorders (2 sources) Body mass index 30+ - obesity; Translations: [Obesity, unspecified] Onset: 12-03-2021 12-03-2021 Chronic Other screening for suspected conditions (not mental disorders or infectious disease) (20 sources) Encounter for screening for malignant neoplasm of prostate; Translations: [Screening for malignant neoplasm done] Onset: 2023 Episodic Residual codes; unclassified (6 sources) Obstructive sleep apnea syndrome; Translations: [Obstructive sleep apnea (adult) (pediatric)] Onset: 12-13-2024 12-13-2024 Chronic Transient cerebral ischemia (20 sources) Transient cerebral ischemia; Translations: [Transient cerebral ischemic attack, unspecified] Onset: 08-26-2023 2023 Chronic Unclassified (1 source) Drug therapy finding 2023 Unclassified (1 source) Finding of sensation of bladder 2023 Unclassified (1 source) Patient encounter status 2023 Unclassified (1 source) Encounter for screening for malignant neoplasm of colon; Translations: [Encounter for screening for malignant neoplasm of colon] Onset: 10-09-2023 Past or Other Problems Problem Classification Problem Date Documented Da te Episodic/Chronic Deficiency and other anemia (20 sources) Iron deficiency anemia; Translations: [Iron deficiency anemia, unspecified] Onset: 02-25-2024 02-25-2024 Episodic Deficiency and other anemia (1 source) Anemia; Translations: [Anemia, unspecified] 09-03-2023 Episodic Diabetes mellitus without complication (20 sources) Prediabetes; Translations: [Prediabetes] Onset: 03-01-2022 08-26-2023 Episodic Nonspecific chest pain (1 source) Precordial pain; Translations: [Precordial pain] Onset: 12-10-2019 12-10-2019 Episodic Other male genital disorders (5 sources) Swelling of testicle; Translations: [Other specified disorders of the male genital organs] Onset: 12-13-2024 Resolved: 12-13-2024 12-13-2024 Episodic Other non-traumatic joint disorders (20 sources) Pain in left knee; Translations: [Pain in joint, lower leg] Onset: 02-25-2024 02-25-2024 Episodic Other non-traumatic joint disorders (20 sources) Chronic pain of left upper limb; Translations: [Pain in left shoulder] Onset: 02-25-2024 02-25-2024 Episodic Other upper respiratory infections (20 sources) Acute upper respiratory infection; Translations: [Acute upper respiratory infection, unspecified] Onset: 08-26-2023 Resolved: 12-13-2024 08-26-2023 Episodic Results Test Name Value Interpretation Reference Range [place] [address] Ultrasound Report Signed Patient: MARTI MORGAN MR#: [id number] : 1955 Acct:[id number] Age/Sex: 69 / M ADM Date: 12/14/24 Loc: US Attending Dr: Sophie Delarosa NP Ordering Physician: Sophie Delarosa NP Date of Service: 12/14/24 Procedure(s): US scrotum Accession Number(s): [id number] cc: Sophie Delarosa NP [place] [id number] Patient Name: MARTI MORGAN MRN: [id number] date: 1955 Sex: M Assigned Patient Location: US Current Patient Location: US Accession/Order Number: [id number] Exam Date: 12/14/2024 20:49 Report Date: 12/14/2024 20:59 At the request of: SOPHIE DELAROSA NP Procedure: US scrotum SCROTAL ULTRASOUND WITH DUPLEX IMAGING COMPARISON: None CLINICAL DATA: Left scrotal swelling for the past 2 days. The right testis measures 4.0 x 2.7 x 3.1 cm . The left testis measures 4.4 x 2.8 x 2.6 cm. There is normal testicular echogenicity. No intratesticular masses are identified. There is documentation of bilateral duplex and color Doppler testicular blood flow. A small right epididymal cyst is visualized measuring 2 mm . There are mildly prominent vessels lateral to the right testicle with increased flow on Valsalva. This may be varicocele. There is a small left hydrocele measuring approximately 5.2 x 1.4 x 2.7 cm. There is a large left hydrocele which measures approximately 8.4 x 4.9 x 6.6 cm. US/US scrotum IMPRESSION: NO INTRATESTICULAR MASS OR TORSION. POSSIBLE RIGHT VARICOCELE. BILATERAL HYDROCELES, LARGER ON THE LEFT. Impression dictated by: Rosemary Em M.D.12/14/2024 8:59 PM Dictation Location: [place] [address] Electronically authenticated by: [id number] Date: 12/14/2024 20:59 Dictated By: Rosemary Em M.D. Signed By: 12/14/242101 DD/ 58 TD/TT: Sessions Clerk: [facility] Radiology, Radiologi MD akin - 12/14/2024 [facility] [place] [id number] Ultrasound Report Signed Patient: MARTI MORGAN MR#: [id number] : 1955 Acct:[id number] Age/Sex: 69 / M ADM Date: 12/14/24 Loc: US Attending Dr: Sophie Delarosa NP Ordering Physician: Sophie Delarosa NP Date of Service: 12/14/24 Procedure(s): US scrotum Accession Number(s): [id number] cc: Sophie Delarosa NP [facility] [place] [id number] Patient Name: MARTI MORGAN MRN: [facility]:[id number] date: 1955 Sex: M Assigned Patient Location: US Current Patient Location: US Accession/Order Number: [id number] Exam Date: 12/14/2024 20:49 Report Date: 12/14/2024 20:59 At the request of: SOPHIE DELAROSA NP Procedure: US scrotum SCROTAL ULTRASOUND WITH DUPLEX IMAGING COMPARISON: None CLINICAL DATA: Left scrotal swelling for the past 2 days. The right testis measures 4.0 x 2.7 x 3.1 cm . The left testis measures 4.4 x 2.8 x 2.6 cm. There is normal testicular echogenicity. No intratesticular masses are identified. There is documentation of bilateral duplex and color Doppler testicular blood flow. A small right epididymal cyst is visualized measuring 2 mm . There are mildly prominent vessels lateral to the right testicle with increased flow on Valsalva. This may be varicocele. There is a small left hydrocele measuring approximately 5.2 x 1.4 x 2.7 cm. There is a large left hydrocele which measures approximately 8.4 x 4.9 x 6.6 cm. US/US scrotum IMPRESSION: NO INTRATESTICULAR MASS OR TORSION. POSSIBLE RIGHT VARICOCELE. BILATERAL HYDROCELES, LARGER ON THE LEFT. Impression dictated by: Rosemary Em M.D.12/14/2024 8:59 PM Dictation Location: [place] [address] Electronically authenticated by: [id number] Y Date: 12/14/2024 20:59 Dictated By: Rosemary Em M.D. Signed By: 12/14/242101 DD/ 58 TD/TT: Sessions Clerk: [facility] Radiology Study observation (narrative) [facility] US Scrotum and testicleOrder ed By: Radiologist Radiology on 12-14-2024 [facility] Work Phone: No Panel Informationon 06-23 Lorie Messer NP 06/23/2024 8:12 AM L Inj/Asp: L knee on 06/23/2024 8:06 AM Indications: pain Details: 20 G needle, anterolateral approach Medications: 40 mg methylPREDNISolone acetate 40 MG/ML UTILIZING ASEPTIC TECHNIQUE PT GIVEN INJECTION IN LEFT KNEE, NEUROVASC INTACT S/P INJ, TOLERATED WELL Procedure, treatment alternatives, risks and benefits explained, specific risks discussed. Consent was given by the patient. [facility] Glucose Poct Glucometerson 0 10-09-2023 Glucose [Mass/Vol] 97 mg/dL Normal [facility] Comment on above: Result Comment: [facility] Glucose Reference Range is dependent on time and content of last meal. Glucose of more than 200 mg/dL in a nonstressed, ambulatory subject supports the diagnosis of Diabetes Mellitus. PERFORMED BY: [facility] [place] [address] PATHOLOGIST [employer] SET UP WORKER VÍCTOR FRANKLIN M.D. Performed By: #### G LULS #### Point of Care testing , Physician Referralon 023 Physician Referral [id number] CD:127 Normal [facility] 05-21-2023 Screens [id number]#[id number] CD:127 Normal [facility] Screens [id number] D:127 Normal [facility] Ambulatory Visit Summaryon 0 2023 Ambulatory Visit Summary MARTI MORGAN :1955 Visit Date:2023 Ambulatory Visit Instructions Your Diagnosis BPH with urinary obstruction ED (erectile dysfunction) Feeling of incomplete bladder emptying Prostate cancer screening Anticoagulated Tests Performed Urnls Dip Stick Auto w/o Microscopy POC 60227 Your Care Team Attending Physician - CLARISSA SIERRA PA-C Primary Care Physician - SHAIKH [...] Sched Cysto/TRUS w/KML Where: [address] [place] [address] Medications What How Much When Instructions Changed tadalafil (Cialis 10 mg Tab) 2 Tablets By Mouth Every day as needed for for erectile dysfunction Changed tamsulosin (tamsulosin 0.4 mg Cap) 1 Capsules By Mouth 2 times a day Pickup at [facility] 5725 Unchanged atorvastatin (atorvastatin 20 mg Tab) Contact [...] physician if questions or concerns Pharmacy Information [facility]: [address] [place], [place] [id number] [phone] Test Results Urnls Dip Stick Auto w/o Microscopy POC 78330 (2023) Bilirubin Urine Dipstick - Negative Blood Urine Dipstick - Negative Glucose Urine Dipstick - Negative Ketones Urine Dipstick - Negative Leukocytes Urine Dipstick - Negative Nitrite Urine Dipstick - Negative Protein Urine Dipstick - Negative Specific [place] Urine Dipstick - 1.010 Urine Appearance Urine [...] (more content not included)... Normal [facility] 2023 Lab Reports [id number]#1.00CD :127 [facility] Lab Reports [id number]#1.00C D:127 [facility] Patient Educationon 05-20-20 23 Patient Education [...] Follow these instructions at home: ? Take hnwn-frt-ezsjiav and prescription medicines only as told by [...] (more content not included)... Normal [facility] CBC AUTO DIFFon 06-25-2022 BASO # 0.1 103/ul Normal 0.0-0.1 [facility] Comment on above: Performed By: #### C BC #### [facility] [address] [place] [address] [address] Renee Prado Basophils/100 WBC (Bld) 0.8 % Normal 0.2-2.0 [facility] Comment on above: Performed By: #### C BC #### [facility] [address] [place] [address] Dr. Renee Prado EO # 0.3 103/ul Normal 0.0-0.7 [facility] Comment on above: Performed By: #### C BC #### [facility] [address] [place] [address] Dr. Renee Prado Eosinophils/100 WBC (Bld) 3.3 % Normal 0.9-7.0 [facility] Comment on above: Performed By: #### C BC #### [facility] [address] [place] [address] Dr. Renee Prado Erythrocyte distribution width (RBC) [Ratio] 13.9 % Normal 11.0-15.0 [facility] Comment on above: Performed By: #### C BC #### [facility] [address] [place] [address] Dr. Renee Prado Hematocrit (Bld) [Volume fraction] 41.9 % Critically low 42.0-54.0 [facility] Comment on above: Performed By: #### C BC #### [facility] [address] [place] [address] Dr. Renee Prado Hemoglobin (Bld) [Mass/Vol] 13.8 g/dL Critically low 14.0-18.0 [facility] Comment on above: Performed By: #### C BC #### [facility] [address] [place] [address] Dr. Renee Prado IG # 0.02 10e3/ul Normal 0.00-0.03 [facility] Comment on above: Performed By: #### C BC #### [facility] [address] [place] [address] Dr. Renee Prado IG % 0.2 % Normal 0.0-0.5 [facility] Comment on above: Performed By: #### C BC #### [facility] [address] [place] [address] Dr. Renee Prado LYMPH # 1.8 103/ul Normal 1.2-3.8 [facility] Comment on above: Performed By: #### C BC #### [facility] [address] [place] [address] Dr. Renee Prado Lymphocytes/100 WBC (Bld) 19.9 % Critically low 20.5-60.0 [facility] Comment on above: Performed By: #### C BC #### [facility] [address] [place] [address] Dr. Renee Prado MANUAL DIFF REQ NO Normal [facility] Comment on above: Performed By: #### C BC #### [facility] [address] [place] [address] Dr. Renee Prado MCH (RBC) [Entitic mass] 28.9 pg Normal 25.9-34.0 [facility] Comment on above: Performed By: #### C BC #### [facility] [address] [place] [address] Dr. Renee Prado MCHC (RBC) [Mass/Vol] 32.9 g/dL Normal 29.9-35.2 [facility] Comment on above: Performed By: #### C BC #### [facility] [address] [place] [address] Dr. Renee Prado MCV (RBC) [Entitic vol] 87.7 fL Normal 80.0-94.0 [facility] Comment on above: Performed By: #### C BC #### [facility] [address] [place] [address] Dr. Renee Prado MONO # 0.6 103/ul Normal 0.3-0.8 [facility] Comment on above: Performed By: #### C BC #### [facility] [address] [place] [address] Dr. Renee Prado Monocytes/100 WBC (Bld) 6.8 % Normal 1.7-12.0 [facility] Comment on above: Performed By: #### C BC #### [facility] [address] [place] [address] Dr. Renee Prado NEUT # 6.1 103/ul Normal 1.4-6.5 [facility] Comment on above: Performed By: #### C BC #### [facility] [address] [place] [address] [address] Renee Prado Neutrophils/100 WBC (Bld) 69.0 % Normal 43.0-75.0 [facility] Comment on above: Performed By: #### C BC #### [facility] [address] [place] [address] [address] Renee Prado Platelet mean volume (Bld) [Entitic vol] 9.4 fL Critically low 9.5-13.5 [facility] Comment on above: Performed By: #### C BC #### [facility] [address] [place] [address] Dr. Renee Prado PLT 269 103/ul Normal 150-450 [facility] Comment on above: Performed By: #### C BC #### [facility] [address] [place] [address] Dr. Renee Prado RBC 4.78 106/ul Normal 4.70-6.10 [facility] Comment on above: Performed By: #### C BC #### [facility] [address] [place] [address] Dr. Renee Prado WBC 8.9 103/ul Normal 4.0-11.0 [facility] Comment on above: Performed By: #### C BC #### [facility] [address] [place] [address] Dr. Renee Prado CREATININE URINEon URINE CREAT 51.03 mg/dL Normal 20.00-300.00 [facility] Comment on above: Performed By: #### C REAU #### [facility] [address] [place] [address] Dr. Renee Prado GLYCOHEMOGLOBIN A1Con 2021 ADA RECOMMENDATION SEE BELOW Normal [facility] Comment on above: Result Comment: ADA RECOMMENDED LIMIT 4.0 - 6.0 ADA THERAPEUTIC TARGET < 7.0 ACTION SUGGESTED > 7.0 Performed By: #### A 1C #### [facility] [address] [place] [address] Dr. Renee Prado Glucose [Mass/Vol] 128 mg/dL Normal [facility] Comment on above: Performed By: #### A 1C #### [facility] [address] [address] [address] Renee Prado HbA1c (Bld) [Mass fraction] 6.1 % Normal 4.5-6.2 [facility] Comment on above: Performed By: #### A 1C #### [facility] [address] [address] [address] Renee Prado LIPID PROFILEon 06-25-2022 CHOL-HDL RATIO NORM SEE BELOW Normal [facility] Comment on above: Result Comment: 3.3 - 4.4 LOW RISK 4.4 - 7.1 AVERAGE RISK 7.1 - 11.0 MODERATE RISK >11.0 HIGH RISK Performed By: #### C MP, LIPID #### [facility] [address] [place] [address] Dr. Renee Prado Cholesterol [Mass/Vol] 158 mg/dL Normal <=200 [facility] Comment on above: Performed By: #### C MP, LIPID #### [facility] [address] [place] [address] Dr. Renee Prado Cholesterol in HDL [Mass/Vol] 51 mg/dL Normal 40-60 [facility] Comment on above: Performed By: #### C MP, LIPID #### [facility] [address] [place] [address] Dr. Renee Prado Cholesterol in LDL [Mass/Vol] 92.6 mg/dL Normal [facility] Comment on above: Performed By: #### C MP, LIPID #### [facility] [address] [place] [address] Dr. Renee Prado Cholesterol.total/Ch olesterol in HDL [Mass ratio] 3.1 {ratio} Normal [facility] Comment on above: Performed By: #### C MP, LIPID #### [facility] [address] [place] [address] Dr. Renee Prado HDL NORMAL > or = 60 mg/dl - LO W CARDIOVASCULAR RISK <40 mg/dl - HIGH CARDIOVASCULAR RISK Normal [facility] Comment on above: Performed By: #### C MP, LIPID #### [facility] [address] [place] [address] Dr. Renee Prado LDL CALC NORMAL SEE BELOW Normal [facility] Comment on above: Result Comment: <100 mg/dl OPTIMAL 100 - 129 mg/dl NEAR OR ABOVE OPTIMAL 130 - 159 mg/dl BORDERLINE HIGH 160 - 189 mg/dl HIGH >190 mg/dl VERY HIGH Performed By: #### C MP, LIPID #### [facility] [address] [place] [address] Dr. Renee Prado Triglyceride [Mass/Vol] 72 mg/dL Normal <=150 [facility] Comment on above: Performed By: #### C MP, LIPID #### [facility] [address] [place] [address] Dr. Renee Prado VLDL CALC 14.4 mg/dL Normal [facility] Comment on above: Performed By: #### C MP, LIPID #### [facility] [address] [place] [address] Dr. Renee Prado MICROALBUMIN, RAND URon 06-08 mALB <0.5 Normal <=30.0 [facility] Comment on above: Performed By: #### M ALBR #### [facility] [address] [place] [address] Dr. Renee Prado PROF 14(COMP METB)on 022 Albumin [Mass/Vol] 4.0 g/dL Normal 3.4-5.0 [facility] Comment on above: Performed By: #### C MP, LIPID #### [facility] [address] [place] [address] Dr. Renee Prado Albumin/Globulin [Mass ratio] 1.3 {ratio} Normal [facility] Comment on above: Performed By: #### C MP, LIPID #### [facility] [address] [place] [address] Dr. Renee Prado ALP [Catalytic activity/Vol] 40 U/L Critically low 46-116 [facility] Comment on above: Performed By: #### C MP, LIPID #### [facility] [address] [place] [address] Dr. Renee Prado ALT [Catalytic activity/Vol] 29 U/L Normal 16-63 [facility] Comment on above: Performed By: #### C MP, LIPID #### [facility] [address] [place] [address] Dr. Renee Prado Anion gap [Moles/Vol] 8.4 mmol/L Normal [facility] Comment on above: Performed By: #### C MP, LIPID #### [facility] [address] [place] [address] Dr. Renee Prado AST [Catalytic activity/Vol] 16 U/L Normal 15-37 [facility] Comment on above: Performed By: #### C MP, LIPID #### [facility] [address] [place] [address] Dr. Renee Prado Bilirubin [Mass/Vol] 0.5 mg/dL Normal 0.2-1.0 [facility] Comment on above: Performed By: #### C MP, LIPID #### [facility] [address] [place] [address] Dr. Renee Prado Calcium [Mass/Vol] 9.4 mg/dL Normal 8.5-10.1 [facility] Comment on above: Performed By: #### C MP, LIPID #### [facility] [address] [place] [address] Dr. Renee Prado Chloride [Moles/Vol] 103 mmol/L Normal 98-107 [facility] Comment on above: Performed By: #### C MP, LIPID #### [facility] [address] [place] [address] Dr. Renee Prado CO2 [Moles/Vol] 30.3 mmol/L Normal 21.0-32.0 [facility] Comment on above: Performed By: #### C MP, LIPID #### [facility] [address] [place] [address] Dr. Renee Prado Creatinine [Mass/Vol] 0.83 mg/dL Normal 0.70-1.30 [facility] Comment on above: Performed By: #### C MP, LIPID #### [facility] [address] [place] [address] Dr. Renee Prado EGFR-AF CITIZEN [place] >65 Normal >=60 [facility] Comment on above: Performed By: #### C MP, LIPID #### [facility] [address] [place] [address] Dr. Renee Prado EGFR-NON AF CITIZEN OF [place] >65 Normal >=60 [facility] Comment on above: Performed By: #### C MP, LIPID #### [facility] [address] [place] [address] Dr. Renee Prado Globulin (S) [Mass/Vol] 3.2 g/dL Normal [facility] Comment on above: Performed By: #### C MP, LIPID #### [facility] [address] [place] [address] Dr. Renee Prado Glucose [Mass/Vol] 88 mg/dL Normal 74-106 [facility] Comment on above: Performed By: #### C MP, LIPID #### [facility] [address] [place] [address] Dr. Renee Prado Potassium [Moles/Vol] 3.7 mmol/L Normal 3.5-5.1 [facility] Comment on above: Performed By: #### C MP, LIPID #### [facility] [address] [place] [address] Dr. Renee Prado Protein [Mass/Vol] 7.2 g/dL Normal 6.4-8.2 [facility] Comment on above: Performed By: #### C MP, LIPID #### [facility] [address] [place] [address] Dr. Renee Prado Sodium [Moles/Vol] 138 mmol/L Normal 136-145 [facility] Comment on above: Performed By: #### C MP, LIPID #### [facility] [address] [place] [address] Dr. Renee Prado Urea nitrogen [Mass/Vol] 12.0 mg/dL Normal 7.0-18.0 [facility] Comment on above: Performed By: #### C MP, LIPID #### [facility] [address] [place] [address] Dr. Renee Prado Urea nitrogen/Creatinine [Mass ratio] 14.5 mg/mg Normal [facility] Comment on above: Performed By: #### C MP, LIPID #### [facility] [address] [address] [address] Renee Prado Vital Signs Date Time Vital Sign Value Performing Clinician Faci shey 12-13-2024 10:09-0400 Body mass index (BMI) [Ratio] 28.73 kg/m2 Sophieiram Marionjose [employer] Work Phone: [facility] 12-13-2024 10:09-0400 Body temperature 98.49 [degF] Sophie Donihchiaraz [employer] Work Phone: [facility] 12-13-2024 10:09-0400 Body weight 107.05 kg Sophieiram Guajardochiaraz [employer] Work Phone: [facility] 12-13-2024 10:09-0400 Diastolic blood pressure 82 mm[Hg] Sophie Casandrachiaraz [employer] Work Phone: [facility] 12-13-2024 10:09-0400 Heart rate 72 /min Sophie Aichholz [employer] Work Phone: [facility] 12-13-2024 10:09-0400 Respiratory rate 18 /min Sophie Casandrachiaraz [employer] Work Phone: [facility] 12-13-2024 10:09-0400 SaO2% (BldA) [Mass fraction] 98 % Sophie Casandrachiaraz [employer] Work Phone: [facility] 12-13-2024 10:09-0400 Systolic blood pressure 128 mm[Hg] Sophie Donihholz [employer] Work Phone: [facility] 08-24-2024 15:25-0500 Body height 193 cm Debbie Reak [employer] Work Phone: [facility] 08-24-2024 15:25-0500 Body mass index (BMI) [Ratio] 28.61 kg/m2 Debbie Palacioszpatrick [employer] Work Phone: [facility] 08-24-2024 15:25-0500 Body temperature 96.6 [degF] Debbie Chavez [employer] Work Phone: [facility] 08-24-2024 15:25-0500 Body weight 106.59 kg Debbie Chavez [employer] Work Phone: [facility] 08-24-2024 15:25-0500 Diastolic blood pressure 70 mm[Hg] Debbie Chavez [employer] Work Phone: [facility] 08-24-2024 15:25-0500 Heart rate 79 /min Debbie Chavez [employer] Work Phone: [facility] 08-24-2024 15:25-0500 Respiratory rate 16 /min Debbie Chavez [employer] Work Phone: [facility] 08-24-2024 15:25-0500 SaO2% (BldA) [Mass fraction] 97 % Debbie Chavez [employer] Work Phone: [facility] 08-24-2024 15:25-0500 Systolic blood pressure 122 mm[Hg] Debbie Chavez [employer] Work Phone: [facility] 10-09-2023 11:45-0500 Diastolic blood pressure 69 mm[Hg] [facility] 10-09-2023 11:45-0500 Heart rate 69 /min [facility] 10-09-2023 11:45-0500 Respiratory rate 18 /min [facility] 10-09-2023 11:45-0500 SaO2% (BldA) [Mass fraction] 99 % [facility] 10-09-2023 11:45-0500 Systolic blood pressure 116 mm[Hg] [facility] 10-09-2023 09:23-0500 Body height 193.04 cm [facility] 10-09-2023 09:23-0500 Body weight 108.86 kg [facility] 2023 10:47-0400 Blood Pressure Location CLARISSA SIERRA [facility] 2023 10:47-0400 Diastolic blood pressure 80 mm[Hg] CLARISSA SIERRA [facility] 2023 10:47-0400 Heart rate 78 /min CLARISSA SIERRA [facility] 2023 10:47-0400 Respiratory rate 16 /min CLARISSA SIERRA [facility] 2023 10:47-0400 Systolic blood pressure 132 mm[Hg] CLARISSA SIERRA [facility] Encounters Encounter Date Encounter Type Care Provider Facility Start: 12-17-2024 End: 12-17-2024 Orders Only Sophie Delarosa [employer] Work Phone: [facility] Comment on above: Hydrocele in adult ( Primary Dx); Swelling of left half of scrotum Start: 12-14-2024 End: 12-14-2024 Clinisync Result Encounter Sophie Delarosa NP Work Phone: [facility] Unsolicited Start: 12-14-2024 End: 12-14-2024 Clinisync Result Encounter Sophie Delarosa [employer] Work Phone: [facility] Unsolicited Start: 12-13-2024 End: 12-13-2024 Bamboo flowsheet Sophie Delarosa [employer] Work Phone: [facility] Start: 12-13-2024 End: 12-13-2024 Bamboo flowsheet Sophie Delarosa [employer] Work Phone: [facility] Start: 12-13-2024 End: 12-13-2024 Office outpatient visit 25 minutes Sophie Delarosa [employer] Work Phone: [facility] Comment on above: Swelling of left carmela f of scrotum (Primary Dx); Primary hypertension (CMS/HCC); BPH with urinary obstruction; Erectile dysfunction, unspecified erectile dysfunction type; Prediabetes; Iron deficiency anemia, unspecified iron deficiency anemia type; Mixed hyperlipidemia (CMS/HCC); Screening for prostate cancer; MAR (obstructive sleep apnea) Start: 12-13-2024 End: 12-13-2024 ambulatory SOPHIE DELAROSA Not Available Start: 09-05-2024 End: 09-08-2024 Refill Debbie Chavez [employer] Work Phone: [facility] Comment on above: Prediabetes Start: 08-30-2024 End: 08-30-2024 Refill Debbie Chavez [employer] Work Phone: [facility] Comment on above: Primary hypertension (CMS/HCC) Start: 08-24-2024 End: 08-24-2024 Office outpatient visit 15 minutes Debbie Chavez [employer] Work Phone: [facility] Comment on above: Primary hypertension (CMS/HCC) (Primary Dx); Iron deficiency; Other chronic pain; BPH with urinary obstruction; Prediabetes; Mixed hyperlipidemia (CMS/HCC); Acute rhinitis Start: 08-24-2024 End: 08-24-2024 ambulatory DEBBIE CHAVEZ Not Available Start: 08-24-2024 End: 08-24-2024 Bamboo flowsheet Debbie Chavez [employer] Work Phone: [facility] Start: 08-24-2024 End: 08-24-2024 Bamboo flowsheet Debbie Chavez [employer] Work Phone: [facility] Start: 08-12-2024 End: 08-12-2024 Refill Debbie Chavez [employer] Work Phone: [facility] Comment on above: Other chronic pain Start: 08-12-2024 End: 08-12-2024 Refill Debbie Chavez [employer] Work Phone: [facility] Comment on above: TIA (transient ische harley attack) Start: 08-10-2024 End: 08-10-2024 Refill Christi Bond MA [facility] Comment on above: Hyperlipidemia, unsp ecified hyperlipidemia type (CMS/HCC) Start: 07-14-2024 End: 07-14-2024 Refill Christi Bond MA [facility] Comment on above: Other chronic pain Start: 07-12-2024 End: 07-12-2024 Refill Debbie Chavez [employer] Work Phone: [facility] Comment on above: Primary hypertension (CMS/HCC) Start: 06-23-2024 End: 06-23-2024 Bamboo flowsheet Lorie B Apling [employer]OR Work Phone: [facility] Start: 06-23-2024 End: 06-23-2024 Bamboo flowsheet Lorie B Apling [employer]PER[employer]OR Work Phone: [facility] Start: 06-23-2024 End: 06-23-2024 Office outpatient visit 25 minutes Lorie B Apling [employer] Work Phone: [facility] Comment on above: Left knee pain, unsp ecified chronicity (Primary Dx); Arthritis of left knee Start: 06-23-2024 End: 06-23-2024 ambulatory LORIE B APLING Not Available Start: 06-21-2024 End: 06-21-2024 Refill Wendy Lewis [facility] Comment on above: Iron deficiency Start: 03-29-2024 End: 03-29-2024 ambulatory LORIE B APLING Not Available Start: 03-15-2024 End: 03-15-2024 ambulatory LORIE B APLING Not Available Start: 03-08-2024 End: 03-08-2024 ambulatory LORIE B APLING Not Available Start: 02-25-2024 End: 02-25-2024 ambulatory ROSAS FAWWAD Not Available Start: 10-09-2023 End: 10-09-2023 ambulatory Shaikh Breanna Facility:[facility] Start: 10-09-2023 Non-patient / Non-visit [facility] Work Phone: Start: 09-03-2023 Orders Only Shaikh Breanna WEAVER Work Phone: [facility] Comment on above: Anemia, unspecified Start: 08-26-2023 Patient encounter status Wendy Lewis [facility] Start: 2023 End: 05-21-2023 ambulatory [facility] Facility:[facility] Start: 2023 End: 2023 Patient encounter procedure CLARISSA SIERRA [facility] Start: 03-05-2023 ambulatory [facility] Facility: [facility] Start: 06-25-2022 End: 06-26-2022 ambulatory [facility] Facility: Procedures Date Procedure Procedure Detail Performing Clinician Start: 12-14-2024 Us scrotum & contents L jenny Aichhollisa [employer] Work Phone: Start: 06-23-2024 Arthrocentesis aspir &/inj major jt/bursa w/o us Lorie B Apling [employer] Work Phone: Start: 02-27-2023 Microalbumin [Mass/v olume] in Urine by Test strip Shaikh Breanna WEAVER Work Phone: Start: 06-25-2022 PSA screening SHAIKH DUNCAN ORDONEZ Comment on above: Performed By: #### P SAD #### [facility] [address] [place] [address] Dr. Renee Prado Start: 10-07-2017 Colonoscopy Wendy sims Carpal tunnel syndro me (disorder) CLARISSA SIERRA Colonoscopy CLARISSA SIERRA Tonsillectomy CLARISSA SIERRA Plan of Treatment Date Care Activity Detail Author Start: 06-30-2030 DTaP,Tdap and Td Vaccines (2 - Td or Tdap) DTaP,Tdap and Td Vaccines (2 - Td or Tdap) [facility] Start: 10-07-2027 Screening for malign ant neoplasm of colon [facility] Start: 08-18-2025 Glaucoma screening Diabetes: R etinopathy Screening [facility] Start: 02-23-2025 End: 02-23-2025 Patient encounter procedure [facility] Start: 12-13-2024 End: 12-13-2025 CBC W Auto Differential panel - Blood CBC and differential Lab Routine Iron deficiency anemia, unspecified iron deficiency anemia type Expected: 12/13/2024 (Approximate), Expires: 12/13/2025 [facility] Work Phone: Comment on above: Expected: 12/13/2024 (Approximate), Expires: 12/13/2025 Start: 12-13-2024 End: 12-13-2025 Comprehensive metabolic 2000 panel - Serum or Plasma Comprehensive metabolic panel Lab Routine Primary hypertension (CMS/HCC) Prediabetes Mixed hyperlipidemia (CMS/HCC) Expected: 12/13/2024 (Approximate), Expires: 12/13/2025 [facility] Comment on above: Expected: 12/13/2024 (Approximate), Expires: 12/13/2025 Start: 12-13-2024 End: 12-13-2025 Ferritin [Mass/volume] in Serum or Plasma Ferritin Lab Routine Iron deficiency anemia, unspecified iron deficiency anemia type Expected: 12/13/2024 (Approximate), Expires: 12/13/2025 [facility] Comment on above: Expected: 12/13/2024 (Approximate), Expires: 12/13/2025 Start: 12-13-2024 End: 12-13-2025 Hemoglobin A1c/Hemoglobin.total in Blood Hemoglobin A1c Lab Routine Prediabetes Expected: 12/13/2024 (Approximate), Expires: 12/13/2025 [facility] Comment on above: Expected: 12/13/2024 (Approximate), Expires: 12/13/2025 Start: 12-13-2024 End: 12-13-2025 Iron + transferrin + TIBC Iron + transferrin + TIBC Lab Routine Iron deficiency anemia, unspecified iron deficiency anemia type Expected: 12/13/2024 (Approximate), Expires: 12/13/2025 [facility] Comment on above: Expected: 12/13/2024 (Approximate), Expires: 12/13/2025 Start: 12-13-2024 End: 12-13-2025 Lipid 1996 panel - Serum or Plasma Lipid panel Lab Routine Mixed hyperlipidemia (CMS/HCC) Expected: 12/13/2024 (Approximate), Expires: 12/13/2025 [facility] Comment on above: Expected: 12/13/2024 (Approximate), Expires: 12/13/2025 Start: 12-13-2024 End: 12-13-2025 Microalbumin/Creatinine panel in random Urine Microalbumin / creatinine, urine ratio Lab Routine Primary hypertension (CMS/HCC) Prediabetes Expected: 12/13/2024 (Approximate), Expires: 12/13/2025 [facility] Comment on above: Expected: 12/13/2024 (Approximate), Expires: 12/13/2025 Start: 12-13-2024 End: 12-13-2025 Prostate specific Ag [Mass/volume] in Serum or Plasma PSA Lab Routine Screening for prostate cancer Expected: 12/13/2024 (Approximate), Expires: 12/13/2025 [facility] Comment on above: Expected: 12/13/2024 (Approximate), Expires: 12/13/2025 Start: 12-13-2024 End: 12-13-2025 Urinalysis complete panel - Urine Urinalysis with reflex microscopic (clean catch) Lab Routine Primary hypertension (CMS/HCC) Prediabetes Expected: 12/13/2024 (Approximate), Expires: 12/13/2025 [facility] Comment on above: Expected: 12/13/2024 (Approximate), Expires: 12/13/2025 Start: 12-13-2024 End: 12-13-2025 US Scrotum and testicle US scrotum Imaging High Priority Swelling of left half of scrotum Expected: 12/13/2024 (Approximate), Expires: 12/13/2025 [facility] Comment on above: Expected: 12/13/2024 (Approximate), Expires: 12/13/2025 Start: 12-13-2024 End: 12-13-2024 Patient encounter procedure 12/13/2024 10:00 AM EDT Office Visit [facility] [address] [place] [address] Sophie Delarosa NP [address] [place] [address] Primary hypertension (CMS/HCC) (Primary Dx); BPH with urinary obstruction; Erectile dysfunction, unspecified erectile dysfunction type; Prediabetes; Iron deficiency anemia, unspecified iron deficiency anemia type; Mixed hyperlipidemia (CMS/HCC); Screening for prostate cancer; Swelling of left testicle [facility] Comment on above: Primary hypertension (CMS/HCC) (Primary Dx); BPH with urinary obstruction; Erectile dysfunction, unspecified erectile dysfunction type; Prediabetes; Iron deficiency anemia, unspecified iron deficiency anemia type; Mixed hyperlipidemia (CMS/HCC); Screening for prostate cancer; Swelling of left testicle Start: 08-24-2024 End: 08-24-2024 Patient encounter procedure [facility] Comment on above: Arrived Start: 08-23-2024 End: 08-23-2024 Patient encounter procedure 08/23/2024 8:00 AM EST Office Visit [facility] [address] [place] [address] Lorie Messer NP [address] [place] [address] [facility] Start: 06-23-2024 End: 06-23-2024 Patient encounter procedure [facility] Comment on above: Left knee pain, unsp ecified chronicity (Primary Dx); Arthritis of left knee Start: 05-09-2024 Influenza vaccination Influenza Vacc ine (#1) [facility] Start: 02-29-2024 Urine screening for protein Diabetes: Urine Protein Screening [facility] Start: 02-28-2024 Urine screening for protein Urine Microalbumin [facility] Start: 10-09-2023 [facility] Start: 09-03-2023 End: 09-03-2024 Ferritin [Mass/volume] in Serum or Plasma Ferritin Lab Routine Anemia, unspecified Expected: 09/03/2023, Expires: 09/03/2024 [facility] Work Phone: Comment on above: Expected: 09/03/2023 , Expires: 09/03/2024 Start: 03-01-2023 Adult BMI Screening Adult BMI Screen ing [facility] Start: 03-01-2023 Tobacco Screening Tobacco Screening [facility] Start: 2022 Fall Risk Screening Fall Risk Screen ing [facility] Start: 1975 Diabetic foot examination Diabetic Foot Exam [facility] Start: 1969 Depression Screening Depression Scre ening [facility] Start: 1957 Glaucoma screening Diabetic Op hthalmology Exam [facility] Start: 1957 Medicare Annual Well ness Visit Medicare Annual Wellness Visit [facility] Start: 1957 Screening for malign ant neoplasm of colon [facility] Microalbumin/Creatin ine panel in random Urine Microalbumin / creatinine urine ratio Lab Routine Primary hypertension (CMS/HCC) Ordered: 08/24/2024 [facility] Work Phone: Comment on above: Ordered: 08/24/2024 Immunizations Immunization Date Immunization Notes Care Provider Duncan castro 06-08-2024 influenza, seasonal, injectable Debbie Chavez NP Work Phone: [facility] 09-13-2023 Pneumococcal Conjuga te PCV 20 [facility] 08-15-2023 RSV, recombinant, protein subunit RSVpreF, adjuvant reconstitu, 120mcg/0.5mL, PF (Arexvy) [facility] 06-22-2023 Influenza, Seasonal, Quadrivalent, Adjuvanted [facility] 06-22-2023 influenza virus vaccine, unspecified formulation [facility] 07-04-2022 SARS-CoV-2 (COVID-19 ) [id number] CLARISSA SIERRA [facility] 06-15-2022 influenza virus vaccine, unspecified formulation CLARISSA MARIELA [facility] 06-15-2022 Influenza, Seasonal, Quadrivalent, Adjuvanted Wendy Lewis [facility] 12-07-2020 SARS-CoV-2 (COVID-19 ) mRNA BNT-162b2 vax CLARISSA MARIELA [facility] 11-17-2020 SARS-CoV-2 (COVID-19 ) mRNA BNT-162x2 vax CLARISSA MARIELA [facility] Comment on above: Result Comment: 2022: [id number] 06-30-2020 influenza virus vaccine, unspecified formulation CLARISSA MARIELA [facility] 06-30-2020 influenza, injectabl e, quadrivalent, preservative free Wendy [employer] [facility] 06-30-2020 tetanus toxoid, reduced diphtheria toxoid, and acellular pertussis vaccine, adsorbed CLARISSA MARIELA [facility] 03-15-2020 zoster vaccine recombinant CLARISSA MARIELA [facility] 10-11-2019 zoster vaccine recombinant CLARISSA MARIELA [facility] 07-29-2019 influenza virus vaccine, unspecified formulation CLARISSA MARIELA [facility] 07-29-2019 influenza, injectabl e, quadrivalent, preservative free Wendy Debbie [facility] 07-17-2018 influenza virus vaccine, unspecified formulation CLARISSA MARIELA [facility] 07-17-2018 Influenza, injectabl e, Madin Rosalind Canine Kidney, preservative free, quadrivalent Wendy Debbie [facility] 12-19-2016 zoster vaccine, live LOUIE SIERRA [facility] 09-18-2009 novel [id number], preservative-free, injectable Wendy Lewis [facility] Healthcare Payers Date Payer Category Payer Self-pay 2017 Private Health Insurance [id number] 1959 Private Health Insurance [id number] 1957 Unknown [id number] 2.16.84 [id number] 1955 Unknown [id number] 2.16.8 [id number] 1957 Unknown [id number] 2.16.84 [id number] 1957 Unknown [id number] 2.16.84 [id number] 1957 Unknown [id number] 2.16.84 [id number] 1957 Unknown [id number] 2.16.84 [id number] 1957 Unknown [id number] 2.16.84 [id number] 1957 Unknown [id number] 2.16.84 [id number] 1957 Unknown [id number] 2.16.84 [id number] Unknown [facility] [id number] Unknown [id number] 2.16.8 [id number] Social History Date Type Detail Facility Start: 2023 End: 02-25-2024 Tobacco smoking status Never smoked tobacco (finding) [facility] Tobacco smoking status Never [facility] Start: 08-25-2023 End: 02-25-2024 Sex Assigned At Male [facility] Start: 1955 Sex Assigned At Male F [facility] Start: 12-03-2021 End: 02-25-2024 Tobacco use and exposure Smokeless tobacco non-user [facility] Start: 03-29-2024 End: 12-13-2024 Alcoholic beverage intake Lifetime non-drinker (finding) [facility] Start: 08-25-2023 End: 02-25-2024 History of Social function [facility] Within the last year , have you been afraid of your partner or ex-partner? No [facility] Do you belong to any clubs or organizations such as yarsanism groups, [employer], [employer]place or athletic groups, or school groups? Yes [facility] Are you now , , , , never or living with a partner? [facility] How often to you hav e a drink containing alcohol? Never [facility] Do you feel stress - tense, restless, nervous, or anxious, or unable to sleep at night because your mind is troubled all the time - these days [OSQ] Only a little [facility] Start: 1955 Sex assigned at Not on file [facility] Start: 03-01-2022 Alcohol intake Ex-drinker (finding) [facility] NEGATED: Highlighted rowStart: NINF History of tobacco use Passive smoker [facility] Functional Status Date Assessment Result Facility 2023 Functional Status N/A [facility] Clinical Notes 2023 to 12-13-2024 Sophie Delarosa NP - 12/13/2024 10:37 AM Jules Delarosa NP - 12/13/2024 10:30 AM YVAN STEWART - 12/13/2024 10:00 AM Jules Delarosa NP - 12/13/2024 10:00 AM EDTPatient Instructions Note Date & Type Note Facility 12-13-2024 History of Present illness Narrative Associated Problem(s): MAR (obstructive sleep apnea) You have a diagnosis of obstructive sleep apnea. It is recommended that you wear your PAP device any time while in bed sleeping. Not using the PAP device can increase your risk of elevated/uncontrolled high blood pressure, atrial fibrillation, heart attack, stroke, or sudden . Compliance with PAP: yes How many hours of use per night: 7 hours Do you feel more refreshed in the morning: yes Company that supplies your machine and tubing/filters etc:[employer] that manages your MAR: Addie Associated Problem(s): Swelling of left half of scrotum Suspected inguinal hernia with hydrocele Check US [facility] Pt states that it started swelling a few months ago however in the last couple weeks the left testicle has swollen even more. Pt states that he is not uncomfortable or painful. Pt states that the testicle is not discolored either. Images from the original note were not included. Marti Morgan is a 69 y.o. male presents with chief complaint of No chief complaint on file. HPI: Testicle swelling: a few months ago, last few weeks increased swelling, no pain, no redness or warmth, no prior episodes, urination is good stream, no fever or chills ,no bloody stools or urine, no dysuria. No low back pain Hypertension This is a chronic problem. The problem is unchanged. The problem is controlled. Pertinent negatives include no peripheral edema. There are no associated agents to hypertension. Risk factors for coronary artery disease include diabetes mellitus, dyslipidemia and male gender. Past treatments include beta blockers. The current treatment provides significant improvement. There are no compliance problems. There is no history of kidney disease, CAD/KS or heart failure. Diabetes He presents for his follow-up diabetic visit. He has type 2 diabetes mellitus. His disease course has been stable. Pertinent negatives for hypoglycemia include no dizziness, nervousness/anxiousness, seizures or tremors. Pertinent negatives for diabetes include no polydipsia and no polyuria. There are no hypoglycemic complications. Symptoms are stable. Risk factors for coronary artery disease include diabetes mellitus, dyslipidemia and hypertension. Current diabetic treatment includes oral agent (monotherapy). An JOE inhibitor/angiotensin II receptor fadia is not being taken. He does not see a bowling ball grader.Eye exam is current. SUBJECTIVE: MEDICATIONS: Current Outpatient Medications Medication Instructions aspirin 81 mg, Oral, Daily atorvastatin (LIPITOR) 20 mg, Oral, Daily ferrous sulfate (FEROSUL) 325 mg, Oral, Daily with breakfast fluticasone (Flonase) 50 MCG/ACT nasal spray 1-2 sprays, Each Nostril, Daily, Shake gently. Before first use, prime pump. After use, clean tip and replace cap. meloxicam (MOBIC) 15 mg, Oral, Daily metFORMIN (Glucophage) 500 MG tablet TAKE 1 TABLET BY MOUTH IN THE MORNING AND 1 IN THE EVENING WITH MEALS metoprolol succinate XL (TOPROL-XL) 50 mg, Oral, Daily tadalafil (CIALIS) 20 mg tamsulosin (FLOMAX) 0.4 mg, Oral, 2 times daily ALLERGIES: No Known Allergies REVIEW OF SYMPTOMS: Review of Systems Constitutional: Negative for activity change, appetite change and unexpected weight change. HENT: Negative for ear pain, nosebleeds, sneezing, trouble swallowing and voice change. Eyes: Negative for pain, discharge and visual disturbance. Respiratory: Negative for apnea, chest tightness and wheezing. Cardiovascular: Negative for leg swelling. Gastrointestinal: Negative for abdominal distention, blood in stool, constipation and diarrhea. Genitourinary: Positive for scrotal swelling. Negative for decreased urine volume, difficulty urinating, dysuria and hematuria. Skin: Negative for color change. Neurological: Negative for dizziness, tremors and seizures. Psychiatric/Behavioral: Negative for agitation, decreased concentration, hallucinations, self-injury and suicidal ideas. The patient is not nervous/anxious. Hematological: Negative for adenopathy. Does not bruise/bleed easily. Endocrine: Negative for cold intolerance, heat intolerance, polydipsia and polyuria. Allergic/Immunologic: Negative for environmental allergies and food allergies. PAST MEDICAL HISTORY Past Medical History: Diagnosis Date Arthritis BPH with urinary obstruction Diabetes (CMS/HCC) DM II (diabetes mellitus, type II), controlled (CMS/HCC) Erectile dysfunction History of TIA (transient ischemic attack) HLD (hyperlipidemia) (CMS/HCC) Hypertension (CMS/HCC) Right knee pain Past Surgical History: Procedure Laterality Date CT ANGIOGRAM HEART CORONARY 02/02/2022 CT ANGIOGRAM HEART CORONARY 02/02/2022 family history includes Diabetes in his father and mother; Heart disease in his father and maternal grandfather; Hypertension in his father and mother. OBJECTIVE: Visit Vitals BP 128/82 (BP Location: Left arm, Patient Position: Sitting, BP Cuff Size: Adult long) Pulse 72 Temp 98.5 F (Temporal) Resp 18 Wt 236 lb SpO2 98% BMI 28.73 kg/m Smoking Status Never BSA 2.4 m Physical Exam Vitals and nursing note reviewed. Constitutional: Appearance: Normal appearance. HENT: Head: Normocephalic. Right Ear: External ear normal. Left Ear: External ear normal. Nose: Nose normal. Mouth/Throat: Mouth: Mucous membranes are moist. Pharynx: Oropharynx is clear. Eyes: Extraocular Movements: Extraocular movements intact. Conjunctiva/sclera: Conjunctivae normal. Neck: Vascular: No carotid bruit. Cardiovascular: Rate and Rhythm: Normal rate and regular rhythm. Pulses: Normal pulses. Heart sounds: Normal heart sounds. Pulmonary: Effort: Pulmonary effort is normal. Breath sounds: Normal breath sounds. No wheezing or rhonchi. Abdominal: General: Bowel sounds are normal. There is no distension. Palpations: Abdomen is soft. Tenderness: There is no abdominal tenderness. There is no guarding. Genitourinary: Penis: Normal. Comments: Fullness of the left jacquie scrotum, no tenderness Suspected hernia with large hydrocele Musculoskeletal: Cervical back: Neck supple. Skin: General: Skin is warm and dry. Capillary Refill: Capillary refill takes 2 to 3 seconds. Neurological: General: No focal deficit present. Mental Status: He is alert. Psychiatric: Mood and Affect: Mood normal. Behavior: Behavior normal. Thought Content: Thought content normal. Judgment: Judgment normal. ASSESSMENT AND PLAN: Follow up in about 3 months (around 03/14/2025). Problem List Items Addressed This Visit BPH with urinary obstruction Current medication: tamsulosin ED (erectile dysfunction) Currently taking cialis daily Hyperlipidemia (CMS/HCC) On statin therapy Check labs yearly and prn dose changes Relevant Orders Comprehensive metabolic panel Lipid panel Hypertension ([facility]/HCC) Please check blood pressure daily and record DASH diet Limit caffeine Take medication as directed Contact office if chest pain, pressure, dizziness, shortness of breath, swelling legs Recommend slow position changes Current meds: metoprolol Relevant Orders Comprehensive metabolic panel Urinalysis with reflex microscopic (clean catch) Microalbumin / creatinine, urine ratio Prediabetes Metformin therapy Check A1c test Relevant Orders Comprehensive metabolic panel Urinalysis with reflex microscopic (clean catch) Microalbumin / creatinine, urine ratio Hemoglobin A1c Iron deficiency anemia Taking ferrous sulfate 325mg daily Check labs Relevant Orders CBC and differential Ferritin Iron + transferrin + TIBC Screening for prostate cancer Relevant Orders PSA Swelling of left half of scrotum - Primary Suspected inguinal hernia with hydrocele Check US [facility] Relevant Orders US scrotum MAR (obstructive sleep apnea) You have a diagnosis of obstructive sleep apnea. It is recommended that you wear your PAP device any time while in bed sleeping. Not using the PAP device can increase your risk of elevated/uncontrolled high blood pressure, atrial fibrillation, heart attack, stroke, or sudden . Compliance with PAP: yes How many hours of use per night: 7 hours Do you feel more refreshed in the morning: yes Company that supplies your machine and tubing/filters etc:[employer] that manages your MAR: Addie Associated Problem(s): Hyperlipidemia (CMS/HCC) On statin therapy Check labs yearly and prn dose changes Associated Problem(s): Iron deficiency anemia Taking ferrous sulfate 325mg daily Check labs Associated Problem(s): Prediabetes Metformin therapy Check A1c test Associated Problem(s): ED (erectile dysfunction) Currently taking cialis daily Associated Problem(s): BPH with urinary obstruction Current medication: tamsulosin Associated Problem(s): Hypertension (CMS/HCC) Please check blood pressure daily and record DASH diet Limit caffeine Take medication as directed Contact office if chest pain, pressure, dizziness, shortness of breath, swelling legs Recommend slow position changes Current meds: metoprolol documented in this encounter [facility] 12-13-2024 Instructions Sophie Delarosa NP - 12/13/2024 10:00 AM EDT Labs are due: fasting 8 hours US scrotum: I will order US at [facility], ,ext [id number] documented in this encounter [facility] 08-24-2024 History of Present illness Narrative Associated Problem(s): Hypertension (CMS/HCC) Currently taking Metoprolol Does not check BP at home; BP is at goal today in the office Denies orthostatic changes, dizziness, cough, shortness of breath, swelling in extremities. Continue current regimen. Given BP log, advised pt to record BP and bring log back with them to next visit. Associated Problem(s): Hyperlipidemia (CMS/HCC) Currently taking Atorvastatin 20mg Denies any myalgias. Continue current regimen. Associated Problem(s): Prediabetes Currently taking Metformin 500mg Denies any adverse reactions or side effects. Most recent A1C Continue current regimen. Subjective Patient ID: Marti Morgan is a 69 y.o. male who presents for No chief complaint on file.. HPI HTN: Currently taking Metoprolol Does not check BP at home; BP is at goal today in the office Denies orthostatic changes, dizziness, cough, shortness of breath, swelling in extremities. Continue current regimen. Given BP log, advised pt to record BP and bring log back with them to next visit. HLD: Currently taking Atorvastatin 20mg Denies any myalgias. Continue current regimen. Component Ref Range & Units 6 mo ago (02/21/24) 6 mo ago (02/21/24) TRIGLYCERIDES <=150 mg/dL 54 18.5 Low R CHOLESTEROL <=200 mg/dL 107 0.1 R HDL CHOLESTEROL 40 - 60 mg/dL 55 4.7 R Comment: > or =60 mg/dl - LOW CARDIOVASCULAR RISK <40 mg/dl - HIGH CARDIOVASCULAR RISK LDL CHOLESTEROL CALCULATED mg/dL 41.2 1.3 R Comment: <100 mg/dl OPTIMAL 100-129 mg/dl NEAR OR ABOVE OPTIMAL 130-159 mg/dl BORDERLINE HIGH 160-189 mg/dl HIGH >190 mg/dl VERY HIGH VLDL CHOLESTEROL mg/dL 10.8 0.6 R CHOL HDL RATIO 1.9 0.01 R Comment: 3.3 - 4.4 LOW RISK 4.4 - 7.1 AVERAGE RISK 7.1 - 11.0 MODERATE RISK >11.0 HIGH RISK Resulting Agency [facility] Prediabetes: Currently taking Metformin 500mg Denies any adverse reactions or side effects. Most recent A1C Continue current regimen. Review of Systems Constitutional: Negative for activity change, appetite change, chills, diaphoresis, fatigue, fever and unexpected weight change. HENT: Positive for rhinorrhea. Negative for congestion, ear pain, sinus pressure, sinus pain, sneezing, sore throat, trouble swallowing and voice change. Eyes: Negative for visual disturbance. Respiratory: Negative for cough, chest tightness, shortness of breath and wheezing. Cardiovascular: Negative for chest pain, palpitations and leg swelling. Gastrointestinal: Negative for abdominal distention, abdominal pain, blood in stool, constipation, diarrhea and vomiting. Genitourinary: Negative for decreased urine volume, dysuria, flank pain, frequency, hematuria and urgency. Musculoskeletal: Negative for arthralgias, gait problem, joint swelling and myalgias. Skin: Negative for rash. Neurological: Negative for dizziness, tremors, syncope, weakness, light-headedness and headaches. Psychiatric/Behavioral: Negative for decreased concentration and suicidal ideas. The patient is not nervous/anxious. Hematological: Does not bruise/bleed easily. Endocrine: Negative for cold intolerance, heat intolerance, polydipsia, polyphagia and polyuria. Objective Physical Exam Vitals reviewed. Constitutional: Appearance: Normal appearance. HENT: Right Ear: Tympanic membrane normal. Left Ear: Tympanic membrane normal. Nose: Nose normal. Mouth/Throat: Mouth: Mucous membranes are moist. Pharynx: Oropharynx is clear. Eyes: Pupils: Pupils are equal, round, and reactive to light. Cardiovascular: Rate and Rhythm: Normal rate and regular rhythm. Pulses: Normal pulses. Heart sounds: Normal heart sounds. Pulmonary: Effort: Pulmonary effort is normal. Breath sounds: Normal breath sounds. Abdominal: General: Abdomen is flat. Bowel sounds are normal. Palpations: Abdomen is soft. Musculoskeletal: General: Normal range of motion. Skin: General: Skin is warm and dry. Capillary Refill: Capillary refill takes less than 2 seconds. Neurological: Mental Status: He is alert and oriented to person, place, and time. Assessment/Plan Problem List Items Addressed This Visit BPH with urinary obstruction Relevant Medications tamsulosin (Flomax) 0.4 MG 24 hr capsule Hyperlipidemia (CMS/HCC) Currently taking Atorvastatin 20mg Denies any myalgias. Continue current regimen. Hypertension (CMS/HCC) - Primary Currently taking Metoprolol Does not check BP at home; BP is at goal today in the office Denies orthostatic changes, dizziness, cough, shortness of breath, swelling in extremities. Continue current regimen. Given BP log, advised pt to record BP and bring log back with them to next visit. Relevant Orders Microalbumin / creatinine urine ratio Prediabetes Currently taking Metformin 500mg Denies any adverse reactions or side effects. Most recent A1C Continue current regimen. Relevant Medications metFORMIN (Glucophage) 500 MG tablet Acute rhinitis Relevant Medications fluticasone (Flonase) 50 MCG/ACT nasal spray cetirizine (ZyrTEC) 10 MG tablet Other Visit Diagnoses Iron deficiency Relevant Medications ferrous sulfate (FeroSul) 325 (65 Fe) MG tablet Other chronic pain Relevant Medications meloxicam (Mobic) 15 MG tablet documented in this encounter [facility] 08-12-2024 Telephone encounter Note Patient is asking if his meloxicam can be a 90 day supply like all his other medications. I did put in for a refill of the low dose aspirin. SON [facility] 08-12-2024 Miscellaneous Notes Patient is asking if his meloxicam can be a 90 day supply like all his other medications. I did put in for a refill of the low dose aspirin. SON documented in this encounter [facility] 08-10-2024 Telephone encounter Note MANDO: NOV:09/03/2024 [facility] 08-10-2024 Miscellaneous Notes MANDO: NOV:09/03/2024 documented in this encounter [facility] 07-14-2024 Telephone encounter Note Mando:02/25/2024 NOV:08/23/2024 [facility] 07-14-2024 Miscellaneous Notes Mando:02/25/2024 NOV:08/23/2024 documented in this encounter [facility] 06-23-2024 History of Present illness Narrative Associated Order(s): L Inj/Asp: L knee Post-Procedure Diagnose(s): Arthritis of left knee Subjective Patient ID: Marti Morgan is a 69 y.o. male. LT Knee last Depo Medrol injection (03/29/24) with 90 % improvement, he notes in the past 1-2 weeks the pain has come back. Denies new injury. Pain has been ongoing since 2022 Pain diffuse and anterior knee. When he lays down or stretches it out he notes the pain will radiate down his leg. 1/10 pain at rest. Pain with activities 1-05/18, laying down 06/17. Admits waking at night. Denies N/T. Notes swelling is constant. Has been using TYL with relief when it flares up. Admits voltaren gel without relief. Denies ice or heat. Admits occas giving out sensation. Admits cracking and popping. Denies locking and catching. TX: TYL, PCP 02/25/24, voltaren gel without relief, TYL, XR [facility] 03/02/24, 03/08/24 depo medrol injection, depo medrol injection 03/29/24 Here with his Objective Knee Musculoskeletal Exam Gait Limp: left Inspection Left Erythema: none Effusion: mild Edema: none Ecchymosis: none Palpation Left Crepitus: patellofemoral Tenderness: present Medial joint line: moderate Patella: mild Range of Motion Left Active extension: 0 Active flexion: 120 L Inj/Asp: L knee on 06/23/2024 8:06 AM Indications: pain Details: 20 G needle, anterolateral approach Medications: 40 mg methylPREDNISolone acetate 40 MG/ML UTILIZING ASEPTIC TECHNIQUE PT GIVEN INJECTION IN LEFT KNEE, NEUROVASC INTACT S/P INJ, TOLERATED WELL Procedure, treatment alternatives, risks and benefits explained, specific risks discussed. Consent was given by the patient. Assessment/Plan Encounter Diagnoses: ICD-10-CM 1. Left knee pain, unspecified chronicity M25.562 2. Arthritis of left knee M17.12 Discussion of options, pt notes he would like an injection, side effects of bleeding and infection discussed, would like to proceed with the injection, using aspectic technique 40 mg of depo medrol was injected into the left lateral knee, pt tolerated well, bandaid applied, may do activities as tolerated, f/u in 2 months documented in this encounter [facility] 2023 Note Chief Complaint Referral *BPH HPI Staff Baby Doctor referral for BPH by Dr. Carlos. PSA [...] Skin: No rashes or suspicious lesions Assessment/Plan Baby Doctor referral for BPH by Dr. Carlos 1. [...] recommend MIPP sooner rather than later. Ordered: 03096 Measure Post Void residual urine and/or bladder capacity by US- non-imaging E&M of New Patient Moderate 45-59 Min 79491 Urnls Dip Stick Auto w/o Microscopy POC [id number] 2. ED (erectile dysfunction) (N52.9: Male erectile [...] E&M of New Patient Moderate 45-59 Min 83227 3. Feeling of incomplete bladder emptying (R39.14: Feeling of incomplete bladder emptying) Pt states he does not feel empty, initial PVR today is 430mL, pt voided a second time about 15 mins later (unprompted) and second PVR 23mL. -See #1 Ordered: E&M of New Patient Moderate 45-59 Min 93557 4. Prostate cancer screening (Z12.5: Encounter for screening for malignant neoplasm of prostate) PSA 06/21/19 - 0.90 08/21/20 - 0.89 06/25/22 - 0.79 -due again in 1 month. PCP manages. 5. 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 Ordered: E&M of New Patient Moderate 45-59 Min 73877 Orders: tamsulosin, 0.4 mg = 1 cap(s), Oral, BID, # 60 tab(s), Refills(s) 6, Pharmacy: [id number], 192, cm, 05/20/23 10:49:00 EDT, Height/Length Dosing, 110, kg, 05/20/23 10:49:00 EDT, Weight Dosing Follow up w/Cysto/TRUS w/KML. All questions/concerns were discussed. Pt to call the office if h (more content not included)... [facility] Comment on above: Result Comment: Elec tronically Signed By: CLARISSA SIERRA PA-C\.br\Date and Time Signed: 05/20/23 11:49 EDT\.br\Electronically Co-Signed By: Lisa Parisi.br\Date and Time Co-Signed: 05/20/23 11:40 EDT 2023 Hospital Discharge instructions Patient Education 2023 [...] urethra. Follow these instructions at home: Take [id number] and prescription medicines only as told by [...] provider. Document Revised: 03/13/2022 Document Reviewed: 03/13/2022 [employer] Patient Education 2022 [employer]. Follow Up Care 03/05/2023 09:34:37 With:CLARISSA SIERRA PA-C, URL Address: [address] [place] [id number] When: Unknown Comments:Sched Cysto/TRUS w/KML [facility] Evaluation + Plan note No data available for this section [facility] Evaluation note No assessment inform ation available [facility] Work Phone: Evaluation note Diagnosis Primary hypertension (CMS/HCC)- Primary Unspecified essential hypertension TIA (transient ischemic attack) Unspecified transient cerebral ischemia BPH with urinary obstruction Hypertrophy of prostate with urinary obstruction and other lower urinary tract symptoms (LUTS) Erectile dysfunction, unspecified erectile dysfunction type Prediabetes Other abnormal glucose Hyperlipidemia, unspecified hyperlipidemia type (CMS/HCC) Encounter for screening for malignant neoplasm of colon Wellness examination URTI (acute upper respiratory infection) Acute upper respiratory infections of unspecified site TIA (transient ischemic attack)- Primary Unspecified transient cerebral ischemia Primary hypertension (CMS/HCC) Unspecified essential hypertension Erectile dysfunction, unspecified erectile dysfunction type Hyperlipidemia, unspecified hyperlipidemia type (CMS/HCC) Iron deficiency anemia, unspecified iron deficiency anemia type BPH with urinary obstruction Hypertrophy of prostate with urinary obstruction and other lower urinary tract symptoms (LUTS) Chronic pain of left knee Chronic left shoulder pain Pain in joint, shoulder region Iron deficiency Disorders of iron metabolism documented in this encounter [facility] HealthcareEvaluation note* Diagnosis Primary hypertension (CMS/HCC)- Primary Unspecified essential hypertension TIA (transient ischemic attack) Unspecified transient cerebral ischemia BPH with urinary obstruction Hypertrophy of prostate with urinary obstruction and other lower urinary tract symptoms (LUTS) Erectile dysfunction, unspecified erectile dysfunction type Prediabetes Other abnormal glucose Hyperlipidemia, unspecified hyperlipidemia type (CMS/HCC) Encounter for screening for malignant neoplasm of colon Wellness examination URTI (acute upper respiratory infection) Acute upper respiratory infections of unspecified site TIA (transient ischemic attack)- Primary Unspecified transient cerebral ischemia Primary hypertension (CMS/HCC) Unspecified essential hypertension Erectile dysfunction, unspecified erectile dysfunction type Hyperlipidemia, unspecified hyperlipidemia type (CMS/HCC) Iron deficiency anemia, unspecified iron deficiency anemia type BPH with urinary obstruction Hypertrophy of prostate with urinary obstruction and other lower urinary tract symptoms (LUTS) Chronic pain of left knee Chronic left shoulder pain Pain in joint, shoulder region Iron deficiency Disorders of iron metabolism Left knee pain, unspecified chronicity- Primary Arthritis of left knee documented in this encounter [facility] HealthcareEvaluation note* Diagnosis Primary hypertension (CMS/HCC)- Primary Unspecified essential hypertension TIA (transient ischemic attack) Unspecified transient cerebral ischemia BPH with urinary obstruction Hypertrophy of prostate with urinary obstruction and other lower urinary tract symptoms (LUTS) Erectile dysfunction, unspecified erectile dysfunction type Prediabetes Other abnormal glucose Hyperlipidemia, unspecified hyperlipidemia type (CMS/HCC) Encounter for screening for malignant neoplasm of colon Wellness examination URTI (acute upper respiratory infection) Acute upper respiratory infections of unspecified site TIA (transient ischemic attack)- Primary Unspecified transient cerebral ischemia Primary hypertension (CMS/HCC) Unspecified essential hypertension Erectile dysfunction, unspecified erectile dysfunction type Hyperlipidemia, unspecified hyperlipidemia type (CMS/HCC) Iron deficiency anemia, unspecified iron deficiency anemia type BPH with urinary obstruction Hypertrophy of prostate with urinary obstruction and other lower urinary tract symptoms (LUTS) Chronic pain of left knee Chronic left shoulder pain Pain in joint, shoulder region Left knee pain, unspecified chronicity- Primary Arthritis of left knee documented in this encounter [facility] HealthcareEvaluation note* Diagnosis Primary hypertension (CMS/HCC)- Primary Unspecified essential hypertension TIA (transient ischemic attack) Unspecified transient cerebral ischemia BPH with urinary obstruction Hypertrophy of prostate with urinary obstruction and other lower urinary tract symptoms (LUTS) Erectile dysfunction, unspecified erectile dysfunction type Prediabetes Other abnormal glucose Hyperlipidemia, unspecified hyperlipidemia type (CMS/HCC) Encounter for screening for malignant neoplasm of colon Wellness examination URTI (acute upper respiratory infection) Acute upper respiratory infections of unspecified site TIA (transient ischemic attack)- Primary Unspecified transient cerebral ischemia Primary hypertension (CMS/HCC) Unspecified essential hypertension Erectile dysfunction, unspecified erectile dysfunction type Hyperlipidemia, unspecified hyperlipidemia type (CMS/HCC) Iron deficiency anemia, unspecified iron deficiency anemia type BPH with urinary obstruction Hypertrophy of prostate with urinary obstruction and other lower urinary tract symptoms (LUTS) Chronic pain of left knee Chronic left shoulder pain Pain in joint, shoulder region Primary hypertension (CMS/HCC) Unspecified essential hypertension documented in this encounter [facility] HealthcareEvaluation note* Diagnosis Primary hypertension (CMS/HCC)- Primary Unspecified essential hypertension TIA (transient ischemic attack) Unspecified transient cerebral ischemia BPH with urinary obstruction Hypertrophy of prostate with urinary obstruction and other lower urinary tract symptoms (LUTS) Erectile dysfunction, unspecified erectile dysfunction type Prediabetes Other abnormal glucose Hyperlipidemia, unspecified hyperlipidemia type (CMS/HCC) Encounter for screening for malignant neoplasm of colon Wellness examination URTI (acute upper respiratory infection) Acute upper respiratory infections of unspecified site TIA (transient ischemic attack)- Primary Unspecified transient cerebral ischemia Primary hypertension (CMS/HCC) Unspecified essential hypertension Erectile dysfunction, unspecified erectile dysfunction type Hyperlipidemia, unspecified hyperlipidemia type (CMS/HCC) Iron deficiency anemia, unspecified iron deficiency anemia type BPH with urinary obstruction Hypertrophy of prostate with urinary obstruction and other lower urinary tract symptoms (LUTS) Chronic pain of left knee Chronic left shoulder pain Pain in joint, shoulder region Other chronic pain documented in this encounter [facility] HealthcareEvaluation note* Diagnosis Primary hypertension (CMS/HCC)- Primary Unspecified essential hypertension TIA (transient ischemic attack) Unspecified transient cerebral ischemia BPH with urinary obstruction Hypertrophy of prostate with urinary obstruction and other lower urinary tract symptoms (LUTS) Erectile dysfunction, unspecified erectile dysfunction type Prediabetes Other abnormal glucose Hyperlipidemia, unspecified hyperlipidemia type (CMS/HCC) Encounter for screening for malignant neoplasm of colon Wellness examination URTI (acute upper respiratory infection) Acute upper respiratory infections of unspecified site TIA (transient ischemic attack)- Primary Unspecified transient cerebral ischemia Primary hypertension (CMS/HCC) Unspecified essential hypertension Erectile dysfunction, unspecified erectile dysfunction type Hyperlipidemia, unspecified hyperlipidemia type (CMS/HCC) Iron deficiency anemia, unspecified iron deficiency anemia type BPH with urinary obstruction Hypertrophy of prostate with urinary obstruction and other lower urinary tract symptoms (LUTS) Chronic pain of left knee Chronic left shoulder pain Pain in joint, shoulder region Hyperlipidemia, unspecified hyperlipidemia type (CMS/HCC) documented in this encounter [facility] HealthcareEvaluation note* Diagnosis Primary hypertension (CMS/HCC)- Primary Unspecified essential hypertension TIA (transient ischemic attack) Unspecified transient cerebral ischemia BPH with urinary obstruction Hypertrophy of prostate with urinary obstruction and other lower urinary tract symptoms (LUTS) Erectile dysfunction, unspecified erectile dysfunction type Prediabetes Other abnormal glucose Hyperlipidemia, unspecified hyperlipidemia type (CMS/HCC) Encounter for screening for malignant neoplasm of colon Wellness examination URTI (acute upper respiratory infection) Acute upper respiratory infections of unspecified site TIA (transient ischemic attack)- Primary Unspecified transient cerebral ischemia Primary hypertension (CMS/HCC) Unspecified essential hypertension Erectile dysfunction, unspecified erectile dysfunction type Hyperlipidemia, unspecified hyperlipidemia type (CMS/HCC) Iron deficiency anemia, unspecified iron deficiency anemia type BPH with urinary obstruction Hypertrophy of prostate with urinary obstruction and other lower urinary tract symptoms (LUTS) Chronic pain of left knee Chronic left shoulder pain Pain in joint, shoulder region Other chronic pain documented in this encounter [facility] HealthcareEvaluation note* Diagnosis Primary hypertension (CMS/HCC)- Primary Unspecified essential hypertension TIA (transient ischemic attack) Unspecified transient cerebral ischemia BPH with urinary obstruction Hypertrophy of prostate with urinary obstruction and other lower urinary tract symptoms (LUTS) Erectile dysfunction, unspecified erectile dysfunction type Prediabetes Other abnormal glucose Hyperlipidemia, unspecified hyperlipidemia type ([facility] Encounter for screening for malignant neoplasm of colon Wellness examination URTI (acute upper respiratory infection) Acute upper respiratory infections of unspecified site TIA (transient ischemic attack)- Primary Unspecified transient cerebral ischemia Primary hypertension (CMS/HCC) Unspecified essential hypertension Erectile dysfunction, unspecified erectile dysfunction type Hyperlipidemia, unspecified hyperlipidemia type (CMS/HCC) Iron deficiency anemia, unspecified iron deficiency anemia type BPH with urinary obstruction Hypertrophy of prostate with urinary obstruction and other lower urinary tract symptoms (LUTS) Chronic pain of left knee Chronic left shoulder pain Pain in joint, shoulder region TIA (transient ischemic attack) Unspecified transient cerebral ischemia documented in this encounter [facility] HealthcareEvaluation note* Diagnosis Primary hypertension (CMS/HCC)- Primary Unspecified essential hypertension TIA (transient ischemic attack) Unspecified transient cerebral ischemia BPH with urinary obstruction Hypertrophy of prostate with urinary obstruction and other lower urinary tract symptoms (LUTS) Erectile dysfunction, unspecified erectile dysfunction type Prediabetes Other abnormal glucose Hyperlipidemia, unspecified hyperlipidemia type (CMS/HCC) Encounter for screening for malignant neoplasm of colon Wellness examination URTI (acute upper respiratory infection) Acute upper respiratory infections of unspecified site TIA (transient ischemic attack)- Primary Unspecified transient cerebral ischemia Primary hypertension (CMS/HCC) Unspecified essential hypertension Erectile dysfunction, unspecified erectile dysfunction type Hyperlipidemia, unspecified hyperlipidemia type (CMS/HCC) Iron deficiency anemia, unspecified iron deficiency anemia type BPH with urinary obstruction Hypertrophy of prostate with urinary obstruction and other lower urinary tract symptoms (LUTS) Chronic pain of left knee Chronic left shoulder pain Pain in joint, shoulder region Primary hypertension (CMS/HCC)- Primary Unspecified essential hypertension Iron deficiency Disorders of iron metabolism Other chronic pain BPH with urinary obstruction Hypertrophy of prostate with urinary obstruction and other lower urinary tract symptoms (LUTS) Prediabetes Other abnormal glucose Mixed hyperlipidemia (CMS/HCC) Mixed hyperlipidemia Acute rhinitis Acute nasopharyngitis (common cold) documented in this encounter [facility] HealthcareEvaluation note* Diagnosis Primary hypertension (CMS/HCC)- Primary Unspecified essential hypertension TIA (transient ischemic attack) Unspecified transient cerebral ischemia BPH with urinary obstruction Hypertrophy of prostate with urinary obstruction and other lower urinary tract symptoms (LUTS) Erectile dysfunction, unspecified erectile dysfunction type Prediabetes Other abnormal glucose Hyperlipidemia, unspecified hyperlipidemia type (CMS/HCC) Encounter for screening for malignant neoplasm of colon Wellness examination URTI (acute upper respiratory infection) Acute upper respiratory infections of unspecified site TIA (transient ischemic attack)- Primary Unspecified transient cerebral ischemia Primary hypertension (CMS/HCC) Unspecified essential hypertension Erectile dysfunction, unspecified erectile dysfunction type Hyperlipidemia, unspecified hyperlipidemia type (CMS/HCC) Iron deficiency anemia, unspecified iron deficiency anemia type BPH with urinary obstruction Hypertrophy of prostate with urinary obstruction and other lower urinary tract symptoms (LUTS) Chronic pain of left knee Chronic left shoulder pain Pain in joint, shoulder region Primary hypertension (CMS/HCC)- Primary Unspecified essential hypertension Iron deficiency Disorders of iron metabolism Other chronic pain BPH with urinary obstruction Hypertrophy of prostate with urinary obstruction and other lower urinary tract symptoms (LUTS) Prediabetes Other abnormal glucose Mixed hyperlipidemia (CMS/HCC) Mixed hyperlipidemia Acute rhinitis Acute nasopharyngitis (common cold) Primary hypertension (CMS/HCC) Unspecified essential hypertension documented in this encounter [facility] HealthcareEvaluation note* Diagnosis Primary hypertension (CMS/HCC)- Primary Unspecified essential hypertension TIA (transient ischemic attack) Unspecified transient cerebral ischemia BPH with urinary obstruction Hypertrophy of prostate with urinary obstruction and other lower urinary tract symptoms (LUTS) Erectile dysfunction, unspecified erectile dysfunction type Prediabetes Other abnormal glucose Hyperlipidemia, unspecified hyperlipidemia type (CMS/HCC) Encounter for screening for malignant neoplasm of colon Wellness examination URTI (acute upper respiratory infection) Acute upper respiratory infections of unspecified site TIA (transient ischemic attack)- Primary Unspecified transient cerebral ischemia Primary hypertension (CMS/HCC) Unspecified essential hypertension Erectile dysfunction, unspecified erectile dysfunction type Hyperlipidemia, unspecified hyperlipidemia type (CMS/HCC) Iron deficiency anemia, unspecified iron deficiency anemia type BPH with urinary obstruction Hypertrophy of prostate with urinary obstruction and other lower urinary tract symptoms (LUTS) Chronic pain of left knee Chronic left shoulder pain Pain in joint, shoulder region Primary hypertension (CMS/HCC)- Primary Unspecified essential hypertension Iron deficiency Disorders of iron metabolism Other chronic pain BPH with urinary obstruction Hypertrophy of prostate with urinary obstruction and other lower urinary tract symptoms (LUTS) Prediabetes Other abnormal glucose Mixed hyperlipidemia (CMS/HCC) Mixed hyperlipidemia Acute rhinitis Acute nasopharyngitis (common cold) Prediabetes Other abnormal glucose documented in this encounter [facility] HealthcareEvaluation note* Diagnosis Anemia, unspecified [facility] Diagnosis Primary hypertension (CMS/HCC)- Primary Unspecified essential hypertension TIA (transient ischemic attack) Unspecified transient cerebral ischemia BPH with urinary obstruction Hypertrophy of prostate with urinary obstruction and other lower urinary tract symptoms (LUTS) Erectile dysfunction, unspecified erectile dysfunction type Prediabetes Other abnormal glucose Hyperlipidemia, unspecified hyperlipidemia type (CMS/HCC) Encounter for screening for malignant neoplasm of colon Wellness examination URTI (acute upper respiratory infection) Acute upper respiratory infections of unspecified site TIA (transient ischemic attack)- Primary Unspecified transient cerebral ischemia Primary hypertension (CMS/HCC) Unspecified essential hypertension Erectile dysfunction, unspecified erectile dysfunction type Hyperlipidemia, unspecified hyperlipidemia type (CMS/HCC) Iron deficiency anemia, unspecified iron deficiency anemia type BPH with urinary obstruction Hypertrophy of prostate with urinary obstruction and other lower urinary tract symptoms (LUTS) Chronic pain of left knee Chronic left shoulder pain Pain in joint, shoulder region Primary hypertension (CMS/HCC)- Primary Unspecified essential hypertension Iron deficiency Disorders of iron metabolism Other chronic pain BPH with urinary obstruction Hypertrophy of prostate with urinary obstruction and other lower urinary tract symptoms (LUTS) Prediabetes Other abnormal glucose Mixed hyperlipidemia (CMS/HCC) Mixed hyperlipidemia Acute rhinitis Acute nasopharyngitis (common cold) Swelling of left half of scrotum- Primary Primary hypertension (CMS/HCC) Unspecified essential hypertension BPH with urinary obstruction Hypertrophy of prostate with urinary obstruction and other lower urinary tract symptoms (LUTS) Erectile dysfunction, unspecified erectile dysfunction type Prediabetes Other abnormal glucose Iron deficiency anemia, unspecified iron deficiency anemia type Mixed hyperlipidemia (CMS/HCC) Mixed hyperlipidemia Screening for prostate cancer Special screening for malignant neoplasm of prostate MAR (obstructive sleep apnea) Obstructive sleep apnea (adult) (pediatric) documented in this encounter [facility] HealthcareEvaluation note* Diagnosis Primary hypertension (CMS/HCC)- Primary Unspecified essential hypertension TIA (transient ischemic attack) Unspecified transient cerebral ischemia BPH with urinary obstruction Hypertrophy of prostate with urinary obstruction and other lower urinary tract symptoms (LUTS) Erectile dysfunction, unspecified erectile dysfunction type Prediabetes Other abnormal glucose Hyperlipidemia, unspecified hyperlipidemia type (CMS/HCC) Encounter for screening for malignant neoplasm of colon Wellness examination URTI (acute upper respiratory infection) Acute upper respiratory infections of unspecified site TIA (transient ischemic attack)- Primary Unspecified transient cerebral ischemia Primary hypertension (CMS/HCC) Unspecified essential hypertension Erectile dysfunction, unspecified erectile dysfunction type Hyperlipidemia, unspecified hyperlipidemia type (CMS/HCC) Iron deficiency anemia, unspecified iron deficiency anemia type BPH with urinary obstruction Hypertrophy of prostate with urinary obstruction and other lower urinary tract symptoms (LUTS) Chronic pain of left knee Chronic left shoulder pain Pain in joint, shoulder region Primary hypertension (CMS/HCC)- Primary Unspecified essential hypertension Iron deficiency Disorders of iron metabolism Other chronic pain BPH with urinary obstruction Hypertrophy of prostate with urinary obstruction and other lower urinary tract symptoms (LUTS) Prediabetes Other abnormal glucose Mixed hyperlipidemia (CMS/HCC) Mixed hyperlipidemia Acute rhinitis Acute nasopharyngitis (common cold) Swelling of left half of scrotum- Primary Primary hypertension (CMS/HCC) Unspecified essential hypertension BPH with urinary obstruction Hypertrophy of prostate with urinary obstruction and other lower urinary tract symptoms (LUTS) Erectile dysfunction, unspecified erectile dysfunction type Prediabetes Other abnormal glucose Iron deficiency anemia, unspecified iron deficiency anemia type Mixed hyperlipidemia (CMS/HCC) Mixed hyperlipidemia Screening for prostate cancer Special screening for malignant neoplasm of prostate MAR (obstructive sleep apnea) Obstructive sleep apnea (adult) (pediatric) Hydrocele in adult- Primary Swelling of left half of scrotum [facility] Additional Instructions DISCHARGE INSTRUCTIONS FOR [...] years. -Follow up with PCP. -Office number [phone]. [facility] Work Phone: InstructionsNot on filedocumented in this encounter [facility] [employer] SystemProgress note No data available for this section [facility] Summary Purpose Family History Relationship Condition Age at Onset Recorded Date/T xenia Not Specified Diabetes mellitus Unknown Hypertension Unknown father Diabetes mellitus Unknown Heart disease Unknown Not Specified Heart disease Unknown Myocardial infarction Unknown Advance Directives Advance Directive Response Recorded Date/ Time Advance Directives No October 07, 2023 4:56pm Chief Complaint and Reason for Visit Chief Complaint Screening Additional Source Comments (unrecognized sect ion and content) No Status Records FoundNo Status Records FoundNo Status Records FoundNo Status Records Found INFORMATION SOURCE (unrecogn ized section and content) DATE CREATED AUTHOR 06/30/2022 [facility] DATE CREATED AUTHOR AUTHOR'S ORGANIZ ATION 05/21/2023 [facility] DATE CREATED AUTHOR AUTHOR'S ORGANIZ ATION 10/17/2023 [facility] DATE CREATED AUTHOR AUTHOR'S ORGANIZ ATION 12/14/2024 [facility] EPIC Patient Care team informatio n (unrecognized section and content) Team Status: Active Member Role Status Dates Shaikh Breanna MD Primary Care Provider Active Team Status: Active Member Role Status Dates Mora Godoy MD Attending Provider, Other Provider Active Start: October 09, 2023 Shaikh Breanna MD Primary Care Provider Active Start: October 09, 2023 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 Relationship Specialty Start Date End Date Shen Perez MD [address] [place] [phone] PCP - General Family Medicine 06/02/24 Debbie Chavez NP [address] [place] [address] Nurse Practitioner Family Medicine 06/02/24 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 Relationship Specialty Start Date End Date Shen Perez MD [address] [place] [phone] PCP - General Family Medicine 06/02/24 Debbie Chavez NP [address] [place] [address] Nurse Practitioner Family Medicine 06/02/24 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 Relationship Specialty Start Date End Date Shen Perez MD [address] [place] [phone] PCP - General Family Medicine 06/02/24 Debbie Chavez NP [address] [place] [address] Nurse Practitioner Family Medicine 06/02/24 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 Relationship Specialty Start Date End Date Shen Perez MD [address] [place] [phone] PCP - General Family Medicine 06/02/24 Debbie Chavez NP [address] [place] [address] Nurse Practitioner Family Medicine 06/02/24 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 Relationship Specialty Start Date End Date Shen Perez MD [address] [place] [phone] PCP - General Family Medicine 06/02/24 Debbie Chavez NP [address] [place] [address] Nurse Practitioner Family Medicine 06/02/24 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 Relationship Specialty Start Date End Date Shen Perez MD [address] [place] [phone] PCP - General Family Medicine 06/02/24 Debbie Chavez NP [address] [place] [address] Nurse Practitioner Family Medicine 06/02/24 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 Relationship Specialty Start Date End Date Shen Perez MD [address] [place] [phone] PCP - General Family Medicine 06/02/24 Debbie Chavez NP [address] [place] [address] Nurse Practitioner Family Medicine 06/02/24 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 Relationship Specialty Start Date End Date Shen Perez MD [address] [place] [phone] PCP - General Family Medicine 06/02/24 Debbie Chavez NP [address] [place] [address] Nurse Practitioner Family Medicine 06/02/24 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 Relationship Specialty Start Date End Date Shen Perez MD [address] [place] [phone] PCP - General Family Medicine 06/02/24 Debbie Chavez NP [address] [place] [address] Nurse Practitioner Family Medicine 06/02/24 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 Relationship Specialty Start Date End Date Shaikh Carlos MD [address] [place] [address] PCP - General Internal Medicine 02/27/23 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 Relationship Specialty Start Date End Date Shen Perez MD [address] [place] [address] PCP - General Family Medicine 06/02/24 Debbie Chavez NP [address] [place] [phone] Nurse Practitioner Family Medicine 06/02/24 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 Relationship Specialty Start Date End Date Shen Perez MD [address] [place] [phone] PCP - General Family Medicine 06/02/24 Debbie Chavez NP [address] [place] [phone] Nurse Practitioner Family Medicine 06/02/24 [employer]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 Relationship Specialty Start Date End Date Shen Perez MD [address] [place] [phone] PCP - General Family Medicine 06/02/24 Debbie Chavez NP [address] [place] [address] Nurse Practitioner Family Medicine 06/02/24 [employer]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 Relationship Specialty Start Date End Date Shen Perez MD [address] [place] [address] PCP - General Family Medicine 06/02/24 Debbie Chavez NP [address] [place] [address] Nurse Practitioner Family Medicine 06/02/24 Goals (unrecognized section and content) Goals may be documented in a n alternate section Reason for Visit (unrecogniz ed section and content) Reason Onset Date Comments Med Refill 06/21/2024 Reason Comments Med Refill Reason Onset Date Comments Med Refill 07/14/2024 Reason Onset Date Comments Med Refill 08/10/2024 Reason Onset Date Comments Med Refill 08/12/2024 Reason Onset Date Comments Med Refill 08/30/2024 FOR RECORDS PERTAINING TO PATIENTS WHO ARE [...] BE BASED ON THE PRIMARY CLINICAL RECORDS. [facility] [employer] [facility]. provides no warranty or guarantee of the accuracy or completeness of information in this document.
[2024-12-18 08:29] LABS: Basophils Absolute Auto 0.1 10^3/uL (0.0-0.1); Basophils Percent Auto 0.8 % (0.2-2.0); Eosinophils Absolute Auto 0.4 10^3/uL (0.0-0.7); Eosinophils Percent Auto 4.4 % (0.9-7.0); Hematocrit 41.9 % (42.0-54.0); Immature Granulocytes Abs Auto 0.02 10^3/uL (0.00-0.03); Immature Granulocytes Pct Auto 0.2 % (0.0-0.5); Lymphocytes Absolute Auto 1.2 10^3/uL (1.2-3.8); Lymphocytes Percent Auto 14.4 % (20.5-60.0); Mean Corpuscular HGB Conc 33.4 g/dL (29.9-35.2); Mean Corpuscular Hemoglobin 29.4 pg (25.9-34.0); Mean Corpuscular Volume 87.8 fL (80.0-94.0); Mean Platelet Volume 9.4 fL (9.5-13.5); Monocytes Absolute Auto 0.6 10^3/uL (0.3-0.8); Monocytes Percent Auto 7.2 % (1.7-12.0); Neutrophils Absolute Auto 6.1 10^3/uL (1.4-6.5); Platelet Count 279 10^3/uL (150-450); Red Blood Count 4.77 10^6/uL (4.70-6.10); Red Cell Distribution Width 13.6 % (11.0-15.0); White Blood Count 8.4 10^3/uL (4.0-11.0)
[2024-12-18 08:37] LABS: Bilirubin Urine NEGATIVE (NEGATIVE); Blood Urine TRACE-I (NEGATIVE); Clarity Urine CLEAR (CLEAR); Color Urine LT. YELLOW (YELLOW); Glucose Urine UA NEGATIVE (NEGATIVE); Ketones Urine NEGATIVE (NEGATIVE); Leukocyte Esterase Urine NEGATIVE (NEGATIVE); Nitrite Urine NEGATIVE (NEGATIVE); Protein Urine NEGATIVE (NEG/TRACE)
[2024-12-18 08:38] LABS: Creatinine Urine Random 111.64 mg/dL (20.00-300.00); Microalbumin Urine Random <1.3 mg/dL (<=30.0)
[2024-12-18 08:48] LABS: Urine Microscopic Indicated YES
[2024-12-18 08:50] LABS: Bacteria Urine NONE SEEN #/HPF (NONE SEEN); Cast Seen? NONE SEEN #/LPF (NONE SEEN); Crystals Seen? None Seen #/HPF (None Seen); Mucus Urine TRACE (NONE SEEN); RBC Urine 0-2 #/HPF (0-2); Squamous Epithelial Cell Urine NONE SEEN #/LPF (NONE/RARE); WBC Urine 0-2 #/HPF (NONE SEEN)
[2024-12-18 08:52] LABS: Estimated Average Glucose 120 mg/dL; Glycohemoglobin A1C 5.8 % (4.5-6.2)
[2024-12-18 09:20] LABS: Alanine Aminotransferase 34 U/L (16-63); Albumin Globulin Ratio 1.2; Albumin Level 3.6 g/dL (3.4-5.0); Alkaline Phosphatase 45 U/L (46-116); Aspartate Amino Transferase 21 U/L (15-37); Bilirubin Total 0.6 mg/dL (0.2-1.0); Calcium 9.2 mg/dL (8.5-10.1); Carbon Dioxide 26.1 mmol/L (21.0-32.0); Chloride 107 mmol/L (98-107); Chol HDL Ratio 1.8; Cholesterol 105 mg/dL (<=200); Estimated GFR (African America >60 (>=60 mL/min/1.73m^2); Estimated GFR (Non-African Ame >60 (>=60 mL/min/1.73m^2); Globulin 3.1 g/dL; Glucose 108 mg/dL (74-106); HDL Cholesterol 58 mg/dL (40-60); LDL Cholesterol Calculated 41.2 mg/dL; Potassium 4.1 mmol/L (3.5-5.1); Sodium 140 mmol/L (136-145); Total Protein 6.7 g/dL (6.4-8.2); Triglycerides 29 mg/dL (<=150); VLDL CHOLESTEROL 5.8 mg/dL
[2024-12-18 09:33] LABS: Prostate Specific Antigen Scrn 1.01 ng/mL (<=4.00)
[2024-12-19 08:29] LABS: Transferrin 283 mg/dL (177-329)
== END 2024-12-18 08:02 | disposition home or self-care (01) ==
PROVIDERS: PCP Nurse Practitioner; Visit Provider Nurse Practitioner
DX: D50.9 Iron deficiency anemia, unspecified (principal); I10 Essential (primary) hypertension; R73.03 Prediabetes; E78.2 Mixed hyperlipidemia; Z12.5 Encounter for screening for malignant neoplasm of prostate
CPT/HCPCS: 36415; 80053; 80061; 81001; 82043; 82570; 82728; 83036; 83540; 83550; 84466; 85025; G0103

== ENCOUNTER 2025-02-09 16:27 | Outpatient (OUT) | payer OTHER, SELFPAY ==
--- NOTE | 2025-02-09 | US_ITS ---
The [address] [address] Patient Name: MARTI MORGAN MRN: [id number] date: 1955 Sex: M Assigned Patient Location: US Current Patient Location: US Accession/Order Number: [id number] Exam Date: 02/09/2025 18:40 Report Date: 02/09/2025 18:42 At the request of: DREW PÉREZ MD Procedure: US scrotum Scrotal ultrasound HISTORY: Left hydrocele COMPARISON: None RIGHT testicle measures 4.2 x 2.5 x 2.7 cm. LEFT testicle measures 5.1 x 2.6 x 2.9 cm. No testicular mass or microcalcifications identified. Normal color flow of both testicles identified. RIGHT epididymal head measures 9 mm containing 3 mm anechoic cyst. LEFT epididymal head measures 7 mm. . Small right hydrocele. Large left hydrocele. No scrotal wall abnormality identified. US/US scrotum IMPRESSION: Large left hydrocele. Small right hydrocele. Unremarkable testicles. Unremarkable right and left epididymis Impression dictated by: Clinton Rudolph M.D. 02/09/2025 6:42 PM Dictation Location: [place] [address] Electronically authenticated by: [id number] Y Date: 02/09/2025 18:42
--- OUTSIDE RECORDS SUMMARY | 2025-02-09 16:29 | XMS_ITS | Encounter Summary ---
Author Organization [facility] Address [address] [place] [address] Care Team Providers Care Union Contract Representative Name Role Phone Shaikh MEG Carlos Primary Care Provider [phone] Shaikh MEG Carlos Primary Care Provider [phone] Shen Perez MD Primary Care Provider [phone] Debbie Chavez FLY FINISHER Unavailable [phone] Encounter Details Date Type Department Care Team (Late st Contact Info) Description 09/17/2023 Orders Only [facility] [address] [place] [address] Shaikh Carlos MD [address] [place] [address] Social History Tobacco Use Types Packs/Day Years Used Date Smoking Tobacco: Never Smokeless Tobacco: Never Alcohol Use Standard Drinks/Week Comments Never 0 (1 standard drink = 0.6 oz pur e alcohol) Humiliation, Afraid, Rape, and Kick questionnair e Answer Date Recorded Within the last year, have y ou been afraid of your partner or ex-partner? No 08/25/2023 Within the last year, have y ou been humiliated or emotionally abused in other ways by your partner or ex-partner? No Within the last year, have y ou been kicked, hit, slapped, or otherwise physically hurt by your partner or ex-partner? No 08/25/2023 Within the last year, have y ou been raped or forced to have any kind of sexual activity by your partner or ex-partner? No 08/25/2023 Social Connection and Isolat ion Panel [NHANES] Answer Date Recorded In a typical week, how many times do you talk on the phone with family, friends, or neighbors? Patient declined 08/25/2023 How often do you get togethe r with friends or relatives? Once a week 08/25/2023 How often do you attend chur or christian services? More than 4 times per year 08/25/2023 Do you belong to any clubs o r organizations such as episcopalian groups, unions, fraternal or athletic groups, or school groups? Yes 08/25/2023 How often do you attend meet ings of the clubs or organizations you belong to? Never 08/25/2023 Are you , , di vorced, , never , or living with a partner? 08/25/2023 AUDIT-C Answer Date Recorded Q1: How often do you have a drink containing alcohol? Never 08/25/2023 Q2: How many drinks containi ng alcohol do you have on a typical day when you are drinking? Patient does not drink Q3: How often do you have si x or more drinks on one occasion? Never 08/25/2023 Overall Financial Resource Strain (CARDIA) Answe r Date Recorded How hard is it for you to pa y for the very basics like food, housing, medical care, and heating? Patient declined 08/25/2023 [facility] - Occupational Stress Questionnaire Answer Date Recorded Do you feel stress - tense, restless, nervous, or anxious, or unable to sleep at night because your mind is troubled all the time - these days? Only a little 08/25/2023 Exercise Vital Sign Answer Date Recorde d On average, how many days pe r week do you engage in moderate to strenuous exercise (like a brisk walk)? Patient declined On average, how many minutes do you engage in exercise at this level? Patient declined 08/25/2023 Hunger Vital Sign Answer Date Recorded Within the past 12 months, y ou worried that your food would run out before you got the money to buy more. Patient declined Within the past 12 months, t he food you bought just didn't last and you didn't have money to get more. Patient declined PRAPARE - Transportation Answer Date Re corded In the past 12 months, has l ack of transportation kept you from medical appointments or from getting medications? No 08/08 In the past 12 months, has l ack of transportation kept you from meetings, work, or from getting things needed for daily living? No 08/25/2023 Housing Stability Vital Sign Answer Migel e Recorded In the last 12 months, was t here a time when you were not able to pay the mortgage or rent on time? No 08/25/2023 In the last 12 months, how many places have you lived? 1 08/25/2023 In the last 12 months, was t here a time when you did not have a steady place to sleep or slept in a senior living (including now)? No 08/25/2023 Sex and Gender Information Value Date Recorded Sex Assigned at Not on file Legal Sex Male 12:47 PM EDT Gender Identity Not on file Sexual Orientation Not on file documented as of this encounter Plan of Treatment Upcoming Encounters Date Type Department Care Team (Late st Contact Info) Description 02/23/2025 2:00 PM EDT Office Visit [facility] [address] [place] [address] Sophie Delarosa NP [address] [place] [address] documented as of this encounter Procedures Procedure Name Priority Date/Time Associated Diagnosis Comments MISCELLANEOUS LAB TEST Routine 09/09/2023 10:14 AM EST MISCELLANEOUS LAB TEST Routine 09/04/2023 11:01 AM EST MISCELLANEOUS LAB TEST Routine 08/28/2023 2:36 PM EST documented in this encounter Results * - Miscellaneous Test (09/09/2023 10:14 AM EST) us Shaikh Breanna WEAVER LAB BLOOD ORDERABLES Final Resu lt * - Miscellaneous Test (09/04/2023 11:01 AM EST) Shaikh Breanna WEAVER LAB BLOOD ORDERABLES Final Resu lt * - Miscellaneous Test (08/28/2023 2:36 PM EST) Shaikh Breanna WEAVER LAB BLOOD ORDERABLES Final Resu lt documented in this encounter Visit Diagnoses Not on filedocumented in this encounter Care Teams Union Contract Representative Relationship Specialty Start Date End Date Shaikh Carlos MD PCP - General Internal Medicine 09/08/22 02/24/24 Shaikh Carlos MD [address] [place] [phone] PCP - General Internal Medicine 02/25/24 06/01/24 Shen Perez MD [address] [place] [phone] PCP - General Family Medicine 06/02/24 Debbie Chavez NP [address] [place] [phone] Nurse Practitioner Family Medicine 06/02/24 documented as of this encounter
--- OUTSIDE RECORDS SUMMARY | 2025-02-09 16:29 | XMS_ITS | Encounter Summary ---
Author Organization [facility] Address [address] [place] [address] Care Team Providers Care Case Sealer Name Role Phone Shaikh MEG Carlos Primary Care Provider [phone] Shaikh MEG Carlos Primary Care Provider [phone] Shen Perez MD Primary Care Provider [phone] Debbie Chavez OPTICAL INSTRUMENT REPAIRER Unavailable [phone] Encounter Details Date Type Department Care Team (Late st Contact Info) Description 09/24/2023 Orders Only [facility] [address] [place] [address] Shaikh Carlos MD [address] [place] [address] Social History Tobacco Use Types Packs/Day Years [...] How often do you attend chur or adventism services? More than 4 times per year 08/25/2023 Do you belong to any clubs o r organizations such as moravian groups, unions, fraternal or athletic groups, or [...] medical care, and heating? Patient declined 08/25/2023 [facility] Questionnaire Answer Date [...] place to sleep or slept in a residential (including now)? No 08/25/2023 Sex and Gender Information Value Date Recorded Sex Assigned at Not on file Legal Sex Male 12:47 PM EDT Gender Identity Not on file Sexual Orientation Not on file documented as of this encounter Plan of Treatment Upcoming Encounters Date Type Department Care Team (Late st Contact Info) Description 02/23/2025 2:00 PM EDT Office Visit [facility] [address] [place] [address] Sophie Delarosa NP [address] [place] [address] documented as of this encounter Procedures Procedure Name Priority Date/Time Associated Diagnosis Comments MISCELLANEOUS LAB TEST Routine 09/04/2023 11:19 AM EST documented in this encounter Results * - Miscellaneous Test (09/04/2023 11:19 AM EST) Shaikh Breanna WEAVER LAB BLOOD ORDERABLES Final Resu lt documented in this encounter Visit Diagnoses Not on filedocumented in this encounter Care Teams Case Sealer Relationship Specialty Start Date End Date Shaikh Carlos MD PCP - General Internal Medicine 09/08/22 02/24/24 Shaikh Carlos MD [address] [place] [address] PCP - General Internal Medicine 02/25/24 06/01/24 Shen Perez MD [address] [place] [address] PCP - General Family Medicine 06/02/24 Debbie Chavez NP [address] [place] [phone] Nurse Practitioner Family Medicine 06/02/24 documented as of this encounter
--- OUTSIDE RECORDS SUMMARY | 2025-02-09 16:29 | XMS_ITS | Clinical Summary ---
Author Organization [facility] Address [address] [place] [address] Care Team Providers Care Student Records Coordinator Name Role Phone Shen Perez MD Primary Care Provider [phone] Debbie Chavez NP Unavailable [phone] Allergies No known active allergies Medications tadalafil (Cialis) 10 MG tablet Take 20 mg by mouth. 05/20/20 23 Active atorvastatin (Lipitor) 20 MG tabletIndications: Hyperlipidemia, unspecified hyperlipidemia type (CMS/HCC) Take 1 tablet (20 mg) by mouth Daily 90 tablet 1 08/10/20 24 Active aspirin 81 MG EC tabletIndications: TIA (transient ischemic attack) Take 1 tablet (81 mg) by mouth Daily 90 tablet 3 08/12/20 24 025 Active ferrous sulfate (FeroSul) 325 (65 Fe) MG tabletIndications: Iron deficiency Take 1 tablet (325 mg) by mouth in the morning. Take with meals. 90 tablet 08/24/20 24 Active metFORMIN (Glucophage) 500 MG tabletIndications: Prediabetes TAKE 1 TABLET BY MOUTH IN THE MORNING AND 1 IN THE EVENING WITH MEALS 180 tablet 09/08/19 25 Active meloxicam (Mobic) 15 MG tabletIndications: Other chronic pain Take 1 tablet (15 mg) by mouth Daily 90 tablet 11/30/19 25 Active tamsulosin (Flomax) 0.4 MG 24 hr capsuleIndications :BPH with urinary obstruction Take 1 capsule (0.4 mg) by mouth in the morning and 1 capsule (0.4 mg) before bedtime. 180 capsule 11/30/19 25 025 Active fluticasone (Flonase) 50 MCG/ACT nasal sprayIndications:A cute rhinitis Administer 1-2 sprays into each nostril Daily Shake gently. Before first use, prime pump. After use, clean tip and replace cap. 16 g 2 01/04/20 25 026 Active metoprolol succinate XL (Toprol-XL) 50 MG 24 hr tabletIndications: Primary hypertension (CMS/HCC) Take 1 tablet (50 mg) by mouth Daily 90 tablet 1 01/13/20 25 025 Active metoprolol succinate XL (Toprol-XL) 50 MG 24 hr tabletIndications: Primary hypertension (CMS/HCC) Take 1 tablet (50 mg) by mouth Daily 90 tablet 08/30/20 24 025 Discontin ued(Reord er) Active Problems Problem Noted Date Diagnosed Date Hydrocele in adult 12/17/2024 Screening for prostate cancer 12/13/2024 Overview (12/20/2024): PSA: 1.01 12/18/24 Swelling of left half of scrotum 12/13/2024 Assessment & Plan (12/13/2024 10:30 AM EDT): Suspected inguinal hernia with hydrocele Check US [facility] MAR (obstructive sleep apnea) 12/13/2024 Assessment & Plan (12/13/2024 10:37 AM EDT): You have a diagnosis of obstructive sleep [...] etc:Mandy Doctor that manages your MAR: Addie Acute rhinitis 08/24/2024 Iron deficiency anemia 02/25/2024 Assessment & Plan (12/13/2024 6:34 AM EDT): Taking ferrous sulfate 325mg daily Check labs Assessment & Plan (02/25/2024 3:37 PM EDT): On PO iron. Anemia more or less resolved 03/01 Normal colonoscopy 11/01 C/w same. No overt/Occult GI bleeding noted. Chronic pain of left knee 02/25/2024 Assessment & Plan (02/25/2024 3:46 PM EDT): Chronic knee pain x 6 months. Acutely worsened for no specific reason x 1-2 week. Denies injury. No prior hx of left knee surgery. No recent XR. Patient previously had right knee intra articular steroid injection and did well He previously saw dr may and will follow up with him after XR is done Chronic left shoulder pain 02/25/2024 Assessment & Plan (02/25/2024 3:41 PM EDT): Left shoulder pain, chronic for 8 months, progressively getting worse. Denies change in ROM. Pain is persistent, affecting his quality of life Will get an XR. Patient seens dr may and was instructed to follow up with him after XR is done BPH with urinary obstruction 08/26/2023 Assessment & Plan (12/13/2024 6:33 AM EDT): Current medication: tamsulosin Assessment & Plan (02/25/2024 3:38 PM EDT): Following Urology. On Flomax. Uses it q12. Symptoms controlled Assessment & Plan (08/26/2023 4:24 PM EST): Following Urology. On Flomax. ED (erectile dysfunction) 08/26/2023 Assessment & Plan (12/13/2024 6:33 AM EDT): Currently taking cialis daily Assessment & Plan (02/25/2024 3:35 PM EDT): On Cialis, working well for him Hyperlipidemia 08/26/2023 Assessment & Plan (12/13/2024 6:35 AM EDT): On statin therapy Check labs yearly and prn dose changes Assessment & Plan (08/24/2024 3:41 PM EST): Currently taking Atorvastatin 20mg Denies any myalgias. Continue current regimen. Assessment & Plan (02/25/2024 3:35 PM EDT): On lipitor 20. Lipid panel 03/01 LDL at goal Assessment & Plan (08/26/2023 4:25 PM EST): On Lipitor. Hypertension 08/26/2023 Assessment & Plan (12/13/2024 6:32 AM EDT): Please check blood pressure daily and record DASH diet Limit caffeine Take medication as directed Contact office if chest pain, pressure, dizziness, shortness of breath, swelling legs Recommend slow position changes Current meds: metoprolol Assessment & Plan (08/24/2024 3:41 PM EST): Currently taking Metoprolol Does not check BP at home; BP is at goal today in the office Denies orthostatic changes, dizziness, cough, shortness of breath, swelling in extremities. Continue current regimen. Given BP log, advised pt to record BP and bring log back with them to next visit. Assessment & Plan (02/25/2024 3:34 PM EDT): BP well controlled. On average less than 130/90. Tolerating Anti hypertensive w/o adverse effects. Denies lightheadedness, dizziness, syncope, presyncope. Patient encouraged to continue with home BP monitoring and call office if he experiences orthostatic symptoms or persistently elevated BP. C/w Toprol Assessment & Plan (08/26/2023 4:23 PM EST): BP well controlled. On average less than 130/90. Tolerating Anti hypertensive w/o adverse effects. Denies lightheadedness, dizziness, syncope, presyncope. Patient encouraged to continue with home BP monitoring and call office if he experiences orthostatic symptoms or persistently elevated BP. C/w Toprol TIA (transient ischemic attack) 08/26/2023 Assessment & Plan (02/25/2024 3:34 PM EDT): Prior hx of TIA. No residual symptoms. On ASA, statin. Assessment & Plan (08/26/2023 4:24 PM EST): Prior hx of TIA. No residual symptoms. Has been on Plavix for years now. Never put on ASA. Discussed with patient - he will switch to ASA. No need to be on Plavix. Encounter for screening for malignant neoplasm o f colon 08/26/2023 Assessment & Plan (08/26/2023 4:25 PM EST): Prior hx of colonic polyps about 5 years ago. Referred to GI for repeat Colonoscopy. Wellness examination 08/26/2023 Assessment & Plan (08/26/2023 4:27 PM EST): Doing well overall. Tolerating meds w/o adverse effects. Reviewed medical, surgical and social hx. Reviewed medications. Patient forgot to get labs done that were ordered last appt. He will get those done as early as possible. Referred to GI for Colonoscopy. Recommended to get pneumonia vaccine. Prediabetes 03/01/2022 Assessment & Plan (12/13/2024 6:33 AM EDT): Metformin therapy Check A1c test Assessment & Plan (08/24/2024 3:40 PM EST): Currently taking Metformin 500mg Denies any adverse reactions or side effects. Most recent A1C Continue current regimen. Assessment & Plan (08/26/2023 4:24 PM EST): Cialis seems to be working for him. Doing well. Resolved Problems Problem Noted Date Diagnosed Date Resolved Date Pre-diabetes 12/20/2024 12/20/2024 Swelling of left testicle 12/13/2024 URTI (acute upper respiratory infection) 08/26/2023 12/13/2024 Assessment & Plan (08/26/2023 4:28 PM EST): Reports sinus congestion, sore throat x 1 week. Symptoms improving. Exam revealed hyperemic external ear canal and TM b/l. No fluid noted. Hyperemic oropharyngeal mucosa. Likely viral URTI. Supportive care, monitor. Call office if symptoms start to worsen. Encounters Date Type Department Care Team Description 01/12/2025 Refill [facility] [address] [place] [address] Shen Perez MD Primary hypertension (CMS/HCC) 01/03/2025 Refill [facility] [address] [place] [phone] Shen Perez MD Acute rhinitis 01/03/2025 Refill [facility] [address] [place] [phone] Shen Perez MD Acute rhinitis 12/18/2024 Clinisync Result Encounter [facility] External Department Unsolicited Sophie Delarosa NP 12/17/2024 Orders Only [facility] [address] [place] [address] Spohie Delarosa NP Hydrocele in adult (Primary Dx); Swelling of left half of scrotum 12/14/2024 Clinisync Result Encounter [facility] External Department Unsolicited Sophie Delarosa NP 12/13/2024 10:00 AM EDT Office Visit [facility] [address] [place] [address] Sophie Delarosa NP Swelling of left half of scrotum (Primary Dx); Primary hypertension ([facility]/HCC); BPH with urinary obstruction; Erectile dysfunction, unspecified erectile dysfunction type; Prediabetes; Iron deficiency anemia, unspecified iron deficiency anemia type; Mixed hyperlipidemia ([facility]); Screening for prostate cancer; MAR (obstructive sleep apnea) 12/13/2024 Bamboo flowsheet [facility] [address] [place] [phone] Sophie Delarosa NP 11/29/2024 Refill [facility] [address] [place] [address] Shen Perez MD Other chronic pain; BPH with urinary obstruction from Last 3 Months Immunizations Immunization Administration Dates Next Due Influenza, High Dose Seasonal, Preservative Free 07/10/2024 Influenza, Seasonal, Quadrivalent, Adjuvanted ,06/15/2022 Influenza, injectable, MDCK, preservative free, quadrivalent 07/17/2018 Influenza, injectable, quadrivalent, preservativ e free 06/30/2020,07/29/2019 Influenza, seasonal, injectable 06/08/2024 Novel [id number], preservative-free 09/18 Pneumococcal Conjugate PCV 20 09/13/2023 RSV, recombinant, protein crocker bunit RSVpreF, adjuvant reconstitu, 120mcg/0.5mL, PF (Arexvy) 08/15/2023 Tdap 06/30/2020 Zoster, Recombinant 03/15/2020,10/11/2019 Zoster, live 12/19/2016 Family History Medical History Relation Name Comments Diabetes Father Heart disease Father Hypertension Father Heart disease Maternal Grandfather Diabetes Mother Hypertension Mother Relation Name Status Comments Father Maternal Grandfather Mother Social History Tobacco Use Types Packs/Day Years Used Date Smoking Tobacco: Never Passive Smoke Exposure: Never Smokeless Tobacco: Never Tobacco Cessation:Counseling Given: Not Answered Alcohol Use Standard Drinks/Week Comments Never 0 [...] How often do you attend chur or catholic services? More than 4 times per year 08/25/2023 Do you belong to any clubs o r organizations such as yazdanism groups, unions, fraternal or athletic groups, or [...] medical care, and heating? Patient declined 08/25/2023 PHQ-2 Answer Date Recorded Patient Health Questionnaire-2 Score 0 02/25/2024 [facility] - Occupational Stress Questionnaire Answer Date [...] place to sleep or slept in a intermediate (including now)? No 08/25/2023 Sex and Gender Information Value Date Recorded Sex Assigned at Not on file Legal Sex Male 12:47 PM EDT Gender Identity Not on file Sexual Orientation Not on file Last Filed Vital Signs Vital Sign Reading Time Taken Comments Blood Pressure 128/82 12/13/2024 10:09 AM EDT Pulse 72 12/13/2024 10:09 AM EDT Temperature 36.9 C (98.5 F) 12/13/2024 10:09 AM EDT Respiratory Rate 18 12/13/2024 10:09 AM EDT Oxygen Saturation 98% 12/13/2024 10:09 AM EDT Inhaled Oxygen Concentration - - Weight 107 kg (236 lb) 12/13/2024 10:09 AM EDT Height 193 cm (6' 4 ) 08/24/2024 3:25 PM EST Body Mass Index 28.73 08/24/2024 3:25 PM EST Plan of Treatment Upcoming Encounters Date Type Department Care Team (Late st Contact Info) Description 02/23/2025 2:00 PM EDT Office Visit [facility] [address] [place] [phone] Sophie Delarosa NP [address] [place] [address] Health Maintenance Due Date Last Done Comments CT Colonography 1955 FIT-DNA 1955 FIT 1955 FOBT 1955 Sigmoidoscopy 1955 Diabetes: Retinopathy Screening 08/18/2025 3, 02/28/2023 Diabetes: Urine Protein Screening 12/18/2025 12/18/2024, 02/28/2023, 02/27/2023, Additional history exists Colonoscopy 10/07/2027 10/07/2017 Colorectal Cancer Screening 10/07/2027 Diabetes: Hemoglobin A1C Discontinued 02/28/2023 Pneumococcal Vaccine: 65+ Years Completed Influenza Vaccine Completed 07/10/2024, , 06/22/2023, Additional history exists Procedures Procedure Name Priority Date/Time Associated Diagnosis Comments TRANSFERRIN Routine 12/18/2024 8:16 AM EDT [facility] FERRITIN Routine 12/18/2024 8:16 AM EDT [facility] PROSTATE SPECIFIC ANTIGEN SCRN Routine 12/18/2024 8:16 AM EDT METRO IRON AND TIBC Routine 12/18/2024 8 :16 AM EDT ALL LIPID PROFILE (FASTING) Routine 12/18/2024 8:16 AM EDT [facility] CMP (CMP) (FOR REMOTE [facility] USE) Routine 12/18/2024 8:16 AM EDT MLR HEMOGLOBIN A1C Routine 12/18/2024 8: 16 AM EDT ALL CBC WITH AUTO DIFF Routine 12/18/2024 8:16 AM EDT TBH URINE MICROSCOPIC ONLY Routine 12/18/2024 8:08 AM EDT TBH UA (CLEAN/CATCH) MICROSCOPIC IF INDICATE Routine 12/18/2024 8:08 AM EDT TBH MICROALB CREAT RATIO RANDOM Routine 12/18/2024 8:08 AM EDT US SCROTUM 12/14/2024 8:59 PM EDT from Last 3 Months Results * TRANSFERRIN (12/18/2024 8:16 AM EDT) TRANSFERRIN 283 177 - 329 mg/dL TB Comment: Performed at: [facility] [address] [id number] Product Manufacturing Professional: Leland Cordova PhD, Phone: [phone] 12/18/2024 8:16 AM EDT 12/18/2024 8:25 AM EDT Narrative CLINISYNC - 12/19/2024 8:29 AM EDT Sophie Delarosa NP LAB BLOOD ORDERABLES [facility] * SRMCOH PROSTATE SPECIFIC ANTIGEN SCRN (12/18/2024 8:16 AM EDT) PROSTATE SPECIFIC ANTIGEN SCRN 1.01 <=4.00 ng/mL TB 12/18/2024 8:16 AM EDT 12/18/2024 8:25 AM EDT Narrative CLINIS[facility] - 12/18/2024 9:33 AM EDT Sophie Delarosa NP [facility] Final [facility] * MLR HEMOGLOBIN A1C (12/18/2024 8:16 AM EDT) GLYCOHEMOGLOBIN A1C 5.8 4.5 - 6.2 % TB Comment: ADA RECOMMENDED LIMIT 4.0 - 6.0 ADA THERAPEUTIC TARGET < 7.0 ACTION SUGGESTED > 7.0 ESTIMATED AVERAGE GLUCOSE 120 mg/dL TB 12/18/2024 8:16 AM EDT 12/18/2024 8:25 AM EDT Narrative CLINISYNC - 12/18/2024 8:53 AM EDT Sophie [place] [facility] Final Result Performing Organization Address [facility] Co de Phone Number CLINISYNC TBH * METRO IRON AND TIBC (12/18/2024 8:16 AM EDT) TBH IRON 65.0 65.0 - 175.0 ug/dL TBH TBH TOTAL IRON BINDING CAPACITY 343.0 250.0 - 450.0 ug/dL TBH TBH PERCENT IRON SATURATION 19.0 % TBH 12/18/2024 8:16 AM EDT 12/18/2024 8:25 AM EDT Narrative CLINISYNC - 12/18/2024 9:33 AM EDT Sophie Washington OSCAR [facility] Final Result Performing Organization Address [facility] Co de Phone Number CLIN[facility]NC TBH * [facility] FERRITIN (12/18/2024 8:16 AM EDT) FERRITIN 33.0 26.0 - 388.0 ng/mL TBH 12/18/2024 8:16 AM EDT 12/18/2024 8:25 AM EDT Narrative CLINISYNC - 12/18/2024 11:00 AM EDT Sophie Washington [facility] Final Result Performing Organization Address [facility] Co de Phone Number CLIN[facility]NC TBH * (ABNORMAL) [facility] CMP (CMP) (FOR REMOTE [facility] USE) (12/18/2024 8:16 AM EDT) SODIUM 140 136 - 145 mmol/L TBH POTASSIUM 4.1 3.5 - 5.1 mmol/L TBH CHLORIDE 107 98 - 107 mmol/L TBH CARBON DIOXIDE 26.1 21.0 - 32.0 mmol/L TBH ANION GAP 11.0 TBH GLUCOSE 108(H) 74 - 106 mg/dL TBH BLOOD UREA NITROGEN 28.0(H) 7.0 - 18.0 mg/dL TBH CREATININE 0.80 0.70 - 1.30 mg/dL TBH TBH EGFR-AF KAZAKH >60 >=60 mL/min/1. 73m 2 TBH TBH EGFR-NON AF KAZAKH >60 >=60 mL/min/1. 73m 2 TBH BUN CREATININE RATIO 35.0 TBH CALCIUM 9.2 8.5 - 10.1 mg/dL TBH BILIRUBIN TOTAL 0.6 0.2 - 1.0 mg/dL TBH ASPARTATE AMINO TRANSFERASE 21 15 - 37 U/L TBH ALANINE AMINOTRANSFERASE 34 16 - 63 U/L TBH ALKALINE PHOSPHATASE 45(L) 46 - 116 U/L TBH TOTAL PROTEIN 6.7 6.4 - 8.2 g/dL TBH ALBUMIN LEVEL 3.6 3.4 - 5.0 g/dL TBH GLOBULIN 3.1 g/dL TBH ALBUMIN GLOBULIN RATIO 1.2 TBH 12/18/2024 8:16 AM EDT 12/18/2024 8:25 AM EDT Narrative CLINISYNC - 12/18/2024 9:25 AM EDT us Sophie Delarosa NP CLINISYNC Final Result [facility] * ALL LIPID PROFILE (FASTING) (12/18/2024 8:16 AM EDT) TRIGLYCERIDES 29 <=150 mg/dL TBH CHOLESTEROL 105 <=200 mg/dL TBH HDL CHOLESTEROL 58 40 - 60 mg/dL TB Comment: > or =60 mg/dl - LOW CARDIOVASCULAR RISK <40 mg/dl - HIGH CARDIOVASCULAR RISK LDL CHOLESTEROL CALCULATED 41.2 mg/dL TB Comment: <100 mg/dl OPTIMAL 100-129 mg/dl NEAR OR ABOVE OPTIMAL 130-159 mg/dl BORDERLINE HIGH 160-189 mg/dl HIGH >190 mg/dl VERY HIGH VLDL CHOLESTEROL 5.8 mg/dL TB CHOL HDL RATIO 1.8 TB Comment: 3.3 - 4.4 LOW RISK 4.4 - 7.1 AVERAGE RISK 7.1 - 11.0 MODERATE RISK >11.0 HIGH RISK 12/18/2024 8:16 AM EDT 12/18/2024 8:25 AM EDT Narrative CLINISYNC - 12/18/2024 9:25 AM EDT us Sophie Washington [facility] Final Result [facility] TB * (ABNORMAL) ALL CBC WITH AUTO DIFF (12/18/2024 8:16 AM EDT) TB WBC 8.4 4.0 - 11.0 10 3/uL TBH TBH RBC 4.77 4.70 - 6.10 10 6/uL TBH TBH HGB 14.0 14.0 - 18.0 g/dL TBH TBH HCT 41.9(L) 42.0 - 54.0 % TBH TBH MCV 87.8 80.0 - 94.0 fL TBH TBH MCH 29.4 25.9 - 34.0 pg TBH TBH MCHC 33.4 29.9 - 35.2 g/dL TBH TBH RDW 13.6 11.0 - 15.0 % TBH TBH PLT 279 150 - 450 10 3/uL TBH TBH MPV 9.4(L) 9.5 - 13.5 fL TBH NEUTROPHILS PERCENT AUTO 73.0 43.0 - 75.0 % TBH LYMPHOCYTES PERCENT AUTO 14.4(L) 20.5 - 60.0 % TBH MONOCYTES PERCENT AUTO 7.2 1.7 - 12.0 % TBH TBH EO % 4.4 0.9 - 7.0 % TBH BASOPHILS PERCENT AUTO 0.8 0.2 - 2.0 % TBH IMMATURE GRANULOCYTES PCT AUTO 0.2 0.0 - 0.5 % TBH NEUTROPHILS ABSOLUTE AUTO 6.1 1.4 - 6.5 10 3/uL TBH LYMPHOCYTES ABSOLUTE AUTO 1.2 1.2 - 3.8 10 3/uL TBH MONOCYTES ABSOLUTE AUTO 0.6 0.3 - 0.8 10 3/uL TBH TBH EO # 0.4 0.0 - 0.7 10 3/uL TBH BASOPHILS ABSOLUTE AUTO 0.1 0.0 - 0.1 10 3/uL TBH IMMATURE GRANULOCYTES ABS AUTO 0.02 0.00 - 0.03 10 3/uL TBH 12/18/2024 8:16 AM EDT 12/18/2024 8:25 AM EDT Narrative CLINISYNC - 12/18/2024 8:33 AM EDT Sophie Delarosa NP CLINISYNC Final Result Performing Organization Address [facility] de Phone Number CLINISYNC TBH * (ABNORMAL) TBH URINE MICROSCOPIC ONLY (12/18/2024 8:08 AM EDT) TBH WBC 0-2(A) NONE SEEN #/HPF TBH TBH RBC 0-2 0 - 2 #/HPF TBH BACTERIA URINE NONE SEEN NONE SEEN #/HPF TBH MUCUS URINE TRACE(A) NONE SEEN TBH SQUAMOUS EPITHELIAL CELL URINE NONE SEEN NONE/RARE #/LPF TBH CRYSTALS SEEN? None Seen None Seen #/HPF TBH CAST SEEN? NONE SEEN NONE SEEN #/LPF TBH 12/18/2024 8:08 AM EDT 12/18/2024 8:25 AM EDT Narrative CLINISYNC - 12/18/2024 8:50 AM EDT Sophie Delarosa NP CLINISYNC Final Result Performing Organization Address [facility] de Phone Number CLINISYNC TB * TBH UA (CLEAN/CATCH) MICROSCOPIC IF INDICATE (12/18/2024 8:08 AM EDT) COLOR URINE LT. YELLOW YELLOW TBH CLARITY URINE CLEAR CLEAR TBH SPECIFIC GRAVITY URINE 1.020 1.005 - 1.025 TBH PH URINE 6.0 5.0 - 9.0 TBH PROTEIN URINE NEGATIVE NEG/TRACE mg/dL TBH GLUCOSE URINE UA NEGATIVE NEGATIVE mg/dL TBH BILIRUBIN URINE NEGATIVE NEGATIVE TBH KETONES URINE NEGATIVE NEGATIVE mg/dL TBH BLOOD URINE TRACE-I NEGATIVE TBH NITRITE URINE NEGATIVE NEGATIVE TBH UROBILINOGEN URINE 1.0 0.2 - 1.0 EU/dL TBH LEUKOCYTE ESTERASE URINE NEGATIVE NEGATIVE TBH URINE MICROSCOPIC INDICATED YES TBH 12/18/2024 8:08 AM EDT 12/18/2024 8:25 AM EDT Narrative CLINISYNC - 12/18/2024 8:50 AM EDT us Sophie Delarosa NP CLINISYNC Final Result Performing Organization Address [facility] Co de Phone Number CLINISYNC TB * TBH MICROALB CREAT RATIO RANDOM (12/18/2024 8:08 AM EDT) MICROALBUMIN URINE RANDOM <1.3 <=30.0 mg/dL TBH CREATININE URINE RANDOM 111.64 20.00 - 300.00 mg/dL TBH 12/18/2024 8:08 AM EDT 12/18/2024 8:25 AM EDT Narrative CLINISYNC - 12/18/2024 8:43 AM EDT us Sophie Delarosa NP CLINISYNC Final Result Performing Organization Address [facility] Co de Phone Number CLINISYPA TB * US scrotum (12/14/2024 8:59 PM EDT) Anatomical Region Laterality Modality Body Ultrasound 12/14/2024 8:59 PM EDT Narrative 12/14/2024 9:02 [place] [address] Ultrasound Report Signed Patient: MARTI MORGAN MR#: [id number] : 1955 Acct:[id number] Age/Sex: 69 / M ADM Date: 12/14/24 Loc: US Attending Dr: Sophie Delarosa NP Ordering Physician: Sophie Delarosa NP Date of Service: 12/14/24 Procedure(s): US scrotum Accession Number(s): [id number] cc: Sophie Delarosa NP [address] [address] Patient Name: MARTI MORGAN MRN: [id number] date: 1955 Sex: M Assigned Patient Location: US Current Patient Location: US Accession/Order Number: [id number] Exam Date: 12/14/2024 20:49 Report Date: 12/14/2024 [...] Rosemary Em M.D.12/14/2024 8:59 PM Dictation Location: [place] [address] Electronically authenticated by: [id number] Y Date: 12/14/2024 20:59 Dictated By: Rosemary Em M.D. Signed By: 12/14/242101 DD/ 58 TD/TT: Powerhouse Engineer: Procedure Note Radiology, Radiologist, MD - 12/14/2024 [place] [address] Ultrasound Report Signed Patient: MARTI MORGAN LMR#: [id number] : 7Acct:[id number] Age/Sex: 69 / MADM Date: 12/14/24 Loc: US Attending Dr: Sophie Delarosa NP Ordering Physician: Sophie Delarosa NP Date of Service: 12/14/24 Procedure(s): US scrotum Accession Number(s): [id number] cc: Sophie Delarosa NP [place] [id number] Patient Name: MARTI MORGAN MRN: [id number] date: 1955 Sex: M Assigned Patient Location: US Current Patient Location: US Accession/Order Number: [id number] Exam Date: 12/14/2024 20:49 Report Date: 12/14/2024 20:59 At the request of: SOPHIE DELAROSA NP Procedure: US scrotum SCROTAL ULTRASOUND WITH DUPLEX IMAGING COMPARISON: None CLINICAL DATA: Left scrotal swelling for the past 2 days. The right testis measures 4.0 x 2.7 x 3.1 cm . The left testis measures4.4 x 2.8 x 2.6 cm. There is normal testicular echogenicity. No intratesticular masses are identified. There is documentation of bilateral duplex andcolor Doppler testicular blood flow. A small right epididymal cyst isvisualized measuring 2 mm . There are mildly prominent vessels lateral to the right testicle with increased flow on Valsalva. This may be varicocele. Thereis a small left hydrocele measuring approximately 5.2 x 1.4 x 2.7 cm. There jenny large left hydrocele which measures approximately 8.4 x 4.9 x 6.6 cm. US/US scrotum IMPRESSION: NO INTRATESTICULAR MASS OR TORSION. POSSIBLE RIGHT VARICOCELE. BILATERAL HYDROCELES, LARGER ON THE LEFT. Impression dictated by: Rosemary Em M.D.12/14/2024 8:59 PM Dictation Location: [place] [address] Electronically authenticated by: [id number] Y Date: 0:59 Dictated By: Rosemary Em M.D. Signed By:12/14/242101 DD/ 58 TD/TT: Powerhouse Engineer: us Sophie Delarosa NP IMG US PROCEDURES Final Result from Last 3 Months Insurance [employer] Care Teams Student Records Coordinator Relationship Specialty Start Date End Date Shen Perez MD [address] [place] [phone] PCP - General Family Medicine 06/02/24 Debbie Chavez NP [address] [place] [phone] Nurse Practitioner Family Medicine 06/02/24
--- OUTSIDE RECORDS SUMMARY | 2025-02-09 16:29 | XMS_ITS | Clinical Summary ---
Author Organization Materia tem Address [id number] [address] [place] [address] Care Team Providers Care Maintenance And Operations Supervisor Name Role Phone Shaikh MEG Carlos Primary Care Provider [phone] Allergies No known active allergies Medications clopidogreL (PLAVIX) 75 mg tablet Take 75 mg by mouth daily. Active meloxicam (MOBIC) 15 mg tablet Take 15 mg by mouth daily. 09/27/2019 Active metFORMIN (GLUCOPHAGE) 500 mg tablet Take 500 mg by mouth daily with breakfast. Active metoprolol succinate XL (TOPROL XL) 25 mg 24 hr tablet Take 1 tablet (25 mg total) by mouth in the morning. 90 tablet 2 01/21/2022 Active Active Problems Problem Noted Date Diagnosed Date Obesity (BMI 30-39.9) 03/01/2022 Prediabetes 03/01/2022 Obesity (BMI 30-39.9) 12/03/2021 Precordial pain 12/10/2019 Family History Medical History Relation Name Comments Heart disease Father Heart disease Paternal Grandfather Relation Name Status Comments Father Paternal Grandfather Social History Tobacco Use Types Packs/Day Years Used Date Smoking Tobacco: Never Smokeless Tobacco: Never Tobacco Cessation:Counseling Given: No Alcohol Use Standard Drinks/Week Comments Not Currently 0 (1 standard drink = 0.6 oz pur e alcohol) Childcare Answer Date Recorded Childcare Unknown 02/17/2019 Employment Answer Date Recorded Employment Unknown 02/17/2019 Purpose - Life Answer Date Recorded Purpose and direction in life Unknown Sex and Gender Information Value Date Recorded Sex Assigned at Not on file Legal Sex Male 12:02 PM EDT Gender Identity Not on file Sexual Orientation Not on file Last Filed Vital Signs Vital Sign Reading Time Taken Comments Blood Pressure 158/90 03/01/2022 2:07 PM EDT Pulse 76 03/01/2022 2:07 PM EDT Temperature 36.4 C (97.6 F) 09/14/2021 9:59 PM EST Respiratory Rate 18 09/14/2021 10:27 PM EST Oxygen Saturation 98% 03/01/2022 2:07 PM EDT Inhaled Oxygen Concentration - - Weight 118.4 kg (261 lb) 03/01/2022 2:07 PM EDT Height 193 cm (6' 4 ) 03/01/2022 2:07 PM EDT Body Mass Index 31.77 03/01/2022 2:07 PM EDT Plan of Treatment Health Maintenance Due Date Last Done Comments Depression Screening 1969 Tobacco Screening 1969 Fall Risk Screening 2022 Adult BMI Screening 03/01/2023 03/01/2022 COVID-19 Vaccine (2023-2 5 season) 2024 08/15/2023, 07/04/2022, 12/07/2020, Additional history exists Influenza Vaccine 05/09/2025 06/22/2023, , 06/15/2022, Additional history exists DTaP,Tdap and Td Vaccines (2 - Td or Tdap) 06/30/2030 06/30/2020 Zoster (Shingles) Vaccine Completed 2019, 10/11/2019, 12/19/2016 Medical Devices Not on file Insurance Care Teams Maintenance And Operations Supervisor Relationship Specialty Start Date End Date Shaikh Carlos MD PCP - General Internal Medicine 02/27/23
--- OUTSIDE RECORDS SUMMARY | 2025-02-09 16:29 | XMS_ITS | Encounter Summary ---
Author Organization [facility] Address [address] [place] [address] Care Team Providers Care Councilor Name Role Phone Shaikh MEG Carlos Primary Care Provider [phone] Shen Perez MD Primary Care Provider [phone] Debbie Chavez NP Unavailable [phone] Encounter Details Date Type Department Care Team (Late st Contact Info) Description 03/02/2024 Clinisync Result Encounter [facility] External Department Unsolicited Shaikh Carlos MD [address] [place] [address] Social History Tobacco Use Types Packs/Day Years Used Date Smoking Tobacco: Never Passive Smoke Exposure: Never Smokeless Tobacco: Never Alcohol Use Standard [...] How often do you attend chur or evangelical services? More than 4 times per year 08/25/2023 Do you belong to any clubs o r organizations such as religion groups, unions, fraternal or athletic groups, or [...] Recorded Patient Health Questionnaire-2 Score 0 02/25/2024 [facility] - Occupational Stress Questionnaire Answer Date Recorded [...] place to sleep or slept in a group home (including now)? No 08/25/2023 Sex and Gender Information Value Date Recorded Sex Assigned at Not on file Legal Sex Male 12:47 PM EDT Gender Identity Not on file Sexual Orientation Not on file documented as of this encounter Plan of Treatment Upcoming Encounters Date Type Department Care Team (Late st Contact Info) Description 02/23/2025 2:00 PM EDT Office Visit [facility] [address] [place] [address] Sophie Delarosa NP [address] [place] [address] documented as of this encounter Procedures Procedure Name Priority Date/Time Associated Diagnosis Comments XR KNEE 3 VIEWS LEFT 03/02/2024 7:09 AM EDT documented in this encounter Results * XR knee 3 views left (03/02/2024 7:09 AM EDT) Anatomical Region Laterality Modality Lower Extremities, Knee Left [facility] 03/02/2024 7:09 AM EDT Narrative 03/02/2024 7:11 AM EDT The [address] [address] XRay Report Signed Patient: MARTI MAHAJAN MR#: [id number] : 1955 Acct:[id number] Age/Sex: 68 / M ADM Date: 03/01/24 Loc: RAD Attending Dr: Shaikh Breanna Foster Ordering Physician: Shaikh Kristin Carlos Date of Service: 03/01/24 Procedure(s): XR knee LT 3V Accession Number(s): [id number] cc: Shaikh Kristin Carlos The [place] [id number] Patient Name: MARTI MAHAJAN MRN: [id number] date: 1955 Sex: M Assigned Patient Location: RAD Current Patient Location: Accession/Order Number: [id number] Exam Date: 03/01/2024 16:35 Report Date: 03/02/2024 07:09 At the request of: SHAIKH BREANNA Procedure: XR knee LT 3V PROCEDURE: XR knee LT 3V COMPARISON: None. HISTORY: Chronic Left knee pain M25.512 FINDINGS: BONES:No acute fracture or dislocation. Severe osteoarthritis of the anterior compartment with rero-kd-qqvs articulation and marginal osteophyte formation SOFT TISSUES:Negative. No visible soft tissue swelling. EFFUSION:None visible. OTHER: Negative. XR/XR knee LT 3V IMPRESSION: Severe patellofemoral osteoarthritis Electronically authenticated by: MELISSA OVIEDO Date: 03/02/2024 07:09 Dictated By: Melissa Oviedo M.D. Signed By: 03/02/24 0711 DD/ 0709 TD/TT: Operations Dispatcher: Procedure Note Radiology, Radiologist, MD - 03/02/2024 [place] [address] XRay Report Signed Patient: MARTI MAHAJAN LMR#: [id number] : 1955cct:[id number] Age/Sex: 68 / MADM Date: 03/01/24 Loc: RAD Attending Dr: Shaikh Breanna Foster Ordering Physician: Shaikh Kristin Carlos Date of Service: 03/01/24 Procedure(s): XR knee LT 3V Accession Number(s): [id number] cc: Shaikh Kristin Carlos [address] [address] Patient Name: MARTI MAHAJAN MRN: [id number] date: 1955 Sex: M Assigned Patient [facility]: [facility] Current Patient Location: Accession/Order Number: [id number] Exam Date: 03/01/2024 16:35 Report Date: 03/02/2024 07:09 At the request of: SHAIKH BREANNA Procedure: XR knee LT 3V PROCEDURE: XR knee LT 3V COMPARISON: None. HISTORY: Chronic Left knee pain M25.512 FINDINGS: BONES:No acute fracture or dislocation. Severe osteoarthritis of theanterior compartment with kvcp-zv-xdqk articulation and marginal osteophyteformation SOFT TISSUES:Negative. No visible soft tissue swelling. EFFUSION:None visible. OTHER: Negative. XR/XR knee LT 3V IMPRESSION: Severe patellofemoral osteoarthritis Electronically authenticated by: MELISSA OVIEDO Date: 03/02/2024 07:09 Dictated By: Melissa Oviedo M.D. Signed By:03/02/2411 DD/ 8 TD/TT: Operations Dispatcher: Shaikh Breanna WEAVER IMG XR PROCEDURES Final Result documented in this encounter Visit Diagnoses Not on filedocumented in this encounter Care Teams Councilor Relationship Specialty Start Date End Date Shaikh Carlos MD [address] [place] [phone] PCP - General Internal Medicine 02/25/24 06/01/24 Shen Perez MD [address] [place] [address] PCP - General Family Medicine 06/02/24 Debbie Chavez NP [address] [place] [address] Nurse Practitioner Family Medicine 06/02/24 documented as of this encounter
--- OUTSIDE RECORDS SUMMARY | 2025-02-09 16:29 | XMS_ITS | Encounter Summary ---
Author Organization [facility] Address [address] [place] [address] Care Team Providers Care Millwork Estimator Name Role Phone Shaikh MEG Carlos Primary Care Provider [phone] Shaikh MEG Carlos Primary Care Provider [phone] Shen Perez MD Primary Care Provider [phone] Debbie Chavez NP Unavailable [phone] Encounter Details Date Type Department Care Team (Late st Contact Info) Description 09/19/2023 Abstract [facility] [address] [place] [address] Barbara Messer NP Social History Tobacco Use Types Packs/Day Years [...] 08/25/2023 How often do you attend chur ch or anabaptism services? More than 4 times per year 08/25/2023 Do you belong to any clubs o r organizations such as taoist groups, unions, fraternal or athletic groups, or [...] medical care, and heating? Patient declined 08/25/2023 [facility] - Occupational Stress [...] place to sleep or slept in a penitentiary (including now)? No 08/25/2023 Sex and Gender [...] Office Visit [facility] [address] [place] [address] Sophie Delarosa NP [address] [place] [address] documented as of this encounter Visit Diagnoses Not on filedocumented in this encounter Care Teams Millwork Estimator Relationship Specialty Start Date End Date Shaikh Carlos MD PCP - General Internal Medicine 09/08/22 02/24/24 Shaikh Carlos MD [address] [place] [address] PCP - General Internal Medicine 02/25/24 06/01/24 Shen Perez MD [address] [place] [address] PCP - General Family Medicine 06/02/24 Debbie Chavez NP [address] [place] [address] Nurse Practitioner Family Medicine 06/02/24 documented as of this encounter
--- OUTSIDE RECORDS SUMMARY | 2025-02-09 16:29 | XMS_ITS | Encounter Summary ---
Author Organization [facility] Address [address] [place] [address] Care Team Providers Care Milk Handler Name Role Phone Shaikh MEG Carlos Primary Care Provider [phone] Shen Perez MD Primary Care Provider [phone] Debbie Chavez NP Unavailable [phone] Encounter Details Date Type Department Care Team (Late st Contact Info) Description 03/02/2024 Clinisync Result Encounter [facility] External Department Unsolicited Shaikh Carlos MD [address] [place] [address] Social History Tobacco Use Types Packs/Day Years [...] any clubs o r organizations such as alevism groups, unions, fraternal or athletic groups, or [...] Recorded Patient Health Questionnaire-2 Score 0 02/25/2024 [facility] - Occupational Stress Questionnaire Answer Date [...] Office Visit [facility] [address] [place] [address] Sophie Delarosa NP [address] [place] [address] documented as of this encounter Procedures Procedure Name Priority Date/Time Associated Diagnosis Comments XR SHOULDER 2+ VIEWS LEFT 03/02/2024 7:10 AM EDT documented in this encounter Results * XR shoulder 2+ views left (03/02/2024 7:10 AM EDT) Anatomical Region Laterality Modality Upper Extremities, Shoulder Left Radi ographic Imaging 03/02/2024 7:10 AM EDT Narrative 03/02/2024 7:13 AM EDT The [address] [address] XRay Report Signed Patient: MARTI MAHAJAN MR#: [id number] : 1955 Acct:[id number] Age/Sex: 68 / M ADM Date: 03/01/24 Loc: RAD Attending Dr: Shaikh Braenna Foster Ordering Physician: Shaikh Kristin Carlos Date of Service: 03/01/24 Procedure(s): XR shoulder LT min 2V Accession Number(s): [id number] cc: Shaikh Kristin Carlos The [place] [address] Patient Name: MARTI MAHAJAN MRN: [id number] date: 1955 Sex: M Assigned Patient Location: RAD Current Patient Location: RAD Accession/Order Number: [id number] Exam Date: 03/01/2024 16:35 Report Date: 03/02/2024 07:10 At the request of: SHAIKH BREANNA Procedure: XR shoulder LT min 2V PROCEDURE: XR shoulder LT min 2V COMPARISON: None. HISTORY: Chronic left shoulder pain M25.562 FINDINGS: BONES:No acute fracture or dislocation. Mild acromioclavicular and glenohumeral joint osteoarthritis SOFT TISSUES:Negative. No visible soft tissue swelling. EFFUSION:None visible. OTHER: Negative. XR/XR shoulder LT min 2V IMPRESSION: Mild osteoarthritis Electronically authenticated by: MELISSA OVIEDO Date: 03/02/2024 07:10 Dictated By: Melissa Oviedo M.D. Signed By: 03/02/24 0713 DD/ 0710 TD/TT: Agriculture Mechanic: Procedure Note Radiology, Radiologist, MD - 03/02/2024 [place] [address] XRay Report Signed Patient: MARTI MAHAJAN LMR#: [id number] : 1955cct:[id number] Age/Sex: 68 / MADM Date: 03/01/24 Loc: RAD Attending Dr: Shaikh Breanna Foster Ordering Physician: Shaikh Kristin Carlos Date of Service: 03/01/24 Procedure(s): XR shoulder LT min 2V Accession Number(s): [id number] cc: Shaikh Kristin Carlos [address] [address] Patient Name: MARTI MAHAJAN MRN: [id number] date: 1955 Sex: M Assigned Patient Location: RAD Current Patient Location: RAD Accession/Order Number: [id number] Exam Date: 03/01/2024 16:35 Report Date: 03/02/2024 07:10 At the request of: SHAIKH BREANNA Procedure: XR shoulder LT min 2V PROCEDURE: XR shoulder LT min 2V COMPARISON: None. HISTORY: Chronic left shoulder pain M25.562 FINDINGS: BONES:No acute fracture or dislocation. Mild acromioclavicular and glenohumeral joint osteoarthritis SOFT TISSUES:Negative. No visible soft tissue swelling. EFFUSION:None visible. OTHER: Negative. XR/XR shoulder LT min 2V IMPRESSION: Mild osteoarthritis Electronically authenticated by: MELISSA OVIEDO Date: 03/02/2024 07:10 Dictated By: Melissa Oviedo M.D. Signed By:03/02/24 0713 DD/ 0710 TD/TT: Agriculture Mechanic: Shaikh Breanna WEAVER IMG XR PROCEDURES Final Result documented in this encounter Visit Diagnoses Not on filedocumented in this encounter Care Teams Milk Handler Relationship Specialty Start Date End Date Shaikh Carlos MD [address] [place] [address] PCP - General Internal Medicine 02/25/24 06/01/24 Shen Perez MD [address] [place] [address] PCP - General Family Medicine 06/02/24 Debbie Chavez NP [address] [place] [address] Nurse Practitioner Family Medicine 06/02/24 documented as of this encounter
--- OUTSIDE RECORDS SUMMARY | 2025-02-09 16:29 | XMS_ITS | Encounter Summary ---
Author Organization [facility] Address [id number] [address] [place] [address] Care Team Providers Care Basket Sorter Name Role Phone Shaikh MEG Carlos Primary Care Provider [phone] Encounter Details Date Type Department Care Team (Late st Contact Info) Description 09/28/2021 Orders Only [facility] [address] [place] [address] Oralia Sevilla, MANA Preop testing (Primary Dx) Social History Tobacco Use Types Packs/Day Years Used Date Smoking Tobacco: Never Smokeless Tobacco: Never Alcohol Use Standard Drinks/Week Comments Not Currently [...] on file Sexual Orientation Not on file COVID-19 Exposure Response Date Recorded In the last month, have you been in contact with someone who was confirmed or suspected to have Coronavirus / COVID-19? No / Unsure 09/28/2021 11:35 AM EST documented as of this encounter Plan of Treatment Not on file documented as of this encounter Results * SARS COV 2 (COVID-19) (10/06/2021 10:57 AM EST) Specimen Naso Pharynx 10/06/2021 9:18 PM EST [facility] Sent to Testing to be performed at [facility]. 10/06/2021 9:18 PM EST [facility] 10/06/2021 9:18 PM EST [facility] Nasopharyngeal structure / Unknown 10/06/2021 10:57 AM EST 10/06/2021 9:14 PM EST us Anahi Yepez MD MICROBIOLOGY - GENERAL ORDE BHUMI Final Result [place] [facility] [address] [place] [address] documented in this encounter Visit Diagnoses Diagnosis Preop testing- Primary Unspecified pre-operative examination documented in this encounter Additional Health Concerns Infection Onset Date Last Indicated Resolved Time COVID-19 Rule-Out 10/29/2021 10/29/2021 10/29/2021 7:38 PM EST COVID-19 Rule-Out 11/19/2021 11/19/2021 11/19/2021 9:42 PM EDT documented as of this encounter Care Teams Basket Sorter Relationship Specialty Start Date End Date Shaikh Carlos MD PCP - General Internal Medicine 02/27/23 documented as of this encounter
--- OUTSIDE RECORDS SUMMARY | 2025-02-09 16:29 | XMS_ITS | Encounter Summary ---
Author Organization [facility] Address [address] [place] [address] Care Team Providers Care Public Relations Manager Name Role Phone Shaikh MEG Carlos Primary Care Provider [phone] Shaikh MEG Carlos Primary Care Provider [phone] Shen Perez MD Primary Care Provider [phone] Debbie Chavez PLATE WORKER Unavailable [phone] Reason for Visit * Reason Comments Med Refill Encounter Details Date Type Department Care Team (Late st Contact Info) Description 11/17/2023 [facility] [address] [place] [address] Shaikh Carlos MD [address] [place] [address] Hyperlipidemia, unspecified hyperlipidemia type (CMS/HCC) (Primary Dx) Social History Tobacco Use Types [...] How often do you attend chur or adventist services? More than 4 times per year 08/25/2023 Do you belong to any clubs o r organizations such as anabaptist groups, unions, fraternal or athletic groups, or [...] medical care, and heating? Patient declined 08/25/2023 [facility] - Occupational Stress Questionnaire Answer Date [...] place to sleep or slept in a halfway (including now)? No 08/25/2023 Sex and Gender Information Value Date Recorded Sex Assigned at Not on file Legal Sex Male 12:47 PM EDT Gender Identity Not on file Sexual Orientation Not on file documented as of this encounter Miscellaneous Notes * Telephone Encounter - Shaikh Breanna MD - 11/17/2023 4:11 PM EDT Approving, but needs appt for additional refills. documented in this encounter Plan of Treatment Upcoming Encounters Date Type Department Care Team (Late st Contact Info) Description 02/23/2025 2:00 PM EDT Office Visit [facility] [address] [place] [address] Sophie Delarosa NP [address] [place] [address] documented as of this encounter Visit Diagnoses Diagnosis Hyperlipidemia, unspecified hyperlipidemia type (CMS/HCC)- Primary documented in this encounter Care Teams Public Relations Manager Relationship Specialty Start Date End Date Shaikh Carlos MD PCP - General Internal Medicine 09/08/22 02/24/24 Shaikh Carlos MD [address] [place] [address] PCP - General Internal Medicine 02/25/24 06/01/24 Shen Perez MD [address] [place] [address] PCP - General Family Medicine 06/02/24 Debbie Chavez NP [address] [place] [address] Nurse Practitioner Family Medicine 06/02/24 documented as of this encounter
== END 2025-02-09 16:28 | disposition home or self-care (01) ==
LOC: US 16:28
PROVIDERS: PCP Nurse Practitioner; Visit Provider Urology
DX: N50.819 Testicular pain, unspecified (principal); N43.3 Hydrocele, unspecified; N43.2 Other hydrocele
CPT/HCPCS: 76870

== ENCOUNTER 2025-03-14 07:07 | Outpatient (OUT) | payer OTHER, SELFPAY ==
--- OUTSIDE RECORDS SUMMARY | 2025-03-07 13:17 | XMS_ITS ---
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 Name Role Phone SOPHIE DELAROSA Attending Unavailable APLINGLORIE Attending Unavailable APLING, LORIE Cuenca Attending Unavailable APLING, LORIE Cuenca Attending Unavailable ZORAIDA PINEDA Attending UnavailNeri Nelson Attending Unavailable Neri HIRSCH Attending Unavailable SOPHIE DELAROSA Referring Unavailable Neri HIRSCH Attending Unavailable PROBLEMS No Problem Records Found PROCEDURES No Procedure Records Found RESULTS PROVIDER LETTER Observed: 03/07/2025 3:35 PM Status: F Source: [facility] Provider Letter March 07, 2025 MARTI MORGAN [address] [place] [address] : 1955 To Whom It May Concern, Please excuse above patient from work. Date of Illness: From: 03/17/25 To: 03/24/2025 May Return to Work On:03/25/25 Restrictions: No work 03/17/25- 03/24/25 Comments: Patient is having surgery on 03/17/25. No work 03/17/25- 03/24/25. He may return to work 03/25/25 with no heavy lifting over 10 lbs x 1 week. Sincerely, [facility] PATIENT EDUCATION Observed: 03/07/2025 3:19 PM Status: C Source: [facility] Patient Education Urology Hydrocelectomy, Adult, Care After The following information offers guidance on how to care for yourself after your procedure. Your health care provider may also give you more specific instructions. If you have problems or questions, contact your health care provider. What can I expect after the procedure? After your procedure, it is common to have: ??? Mild discomfort and swelling in the pouch that holds your testicles (scrotum). ??? Bruising of the scrotum. Follow these instructions at home: Medicines ??? Take hlie-cqr-oaxfzyd and prescription medicines only as told by your health care provider. ??? Ask your health care provider if the medicine prescribed to you: ? Requires you to avoid driving or using machinery. ? Can cause constipation. You may need to take these actions to prevent or treat constipation: ? Drink enough fluid to keep your urine pale yellow. ? Take xauo-pls-idhnaca or prescription medicines. ? Eat foods that are high in fiber, such as beans, whole grains, and fresh fruits and vegetables. ? Limit foods that are high in fat and processed sugars, such as fried or sweet foods. Bathing ??? Do not take baths, swim, or use a hot tub until your health care provider approves. Ask your health care provider if you may take showers. You may only be allowed to take sponge baths. ??? If you were told to wear an athletic support strap (scrotal support), keep it dry. Take it off when you shower or bathe. Incision care ??? Follow instructions from your health care provider about how to take care of your incision. Make sure you: ? Wash your hands with soap and water for at least 20 seconds before and after you change your bandage (dressing). If soap and water are not available, use hand direct marketing analyst. ? Change your dressing as told by your health care provider. ? Leave stitches (sutures), skin glue, or adhesive strips in place. These skin closures may need to stay in place for 2 weeks or longer. If adhesive strip edges start to loosen and curl up, you may trim the loose edges. Do not remove adhesive strips completely unless your health care provider tells you to do that. ??? Check your incision and scrotum every day for signs of infection. Check for: ? More redness, swelling, or pain. ? Fluid or blood. ? Warmth. ? Pus or a bad smell. Managing pain and swelling If directed, put ice on the affected area. To do this: ??? Put ice in a plastic bag. ??? Place a towel between your skin and the bag. ??? Leave the ice on for 20 minutes, 2?3 times per day. ??? Remove the ice if your skin turns bright red. This is very important. If you cannot feel pain, heat, or cold, you have a greater risk of damage to the area. Activity ??? Do not lift anything that is heavier than 10 lb (4.5 kg) until your health care provider says that it is safe. ??? If you were given a sedative during the procedure, it can affect you for several hours. Do not drive or operate machinery until your health care provider says that it is safe. ??? Ask your health care provider when it is safe to drive. ??? Return to your normal activities as told by your health care provider. Ask your health care provider what activities are safe for you. General instructions ??? Do not use any products that contain nicotine or tobacco. These products include cigarettes, chewing tobacco, and vaping devices, such as e-cigarettes. These can delay healing after surgery. If you need help quitting, ask your health care provider. ??? If you were given a scrotal support, wear it as told by your health care provider. ??? Keep all follow-up visits. This is important. If you had a drain put in during the procedure, you will need to have it removed at a follow-up visit. Contact a health care provider if: ??? Your pain is not controlled with medicine. ??? You have more redness, swelling, or pain around your scrotum. ??? You have fluid or blood coming from your incision. ??? Your incision feels warm to the touch. ??? You have pus or a bad smell coming from your incision. ??? You have a fever. Get help right away if: ??? You develop shaking, chills, and a fever that is higher than 101.8?F (38.8?C). ??? You have redness or swelling that starts at your scrotum and spreads outward to your whole groin. ??? You develop swelling in your legs. ??? You have difficulty breathing. These symptoms may be an emergency. Get help right away. Call 911. ??? Do not wait to see if the symptoms will go away. ??? Do not drive yourself to the hospital. Summary ??? After a hydrocelectomy, it is common to have mild discomfort, swelling, and bruising. ??? Do not take baths, swim, or use a hot tub until your health care provider approves. Ask your health care provider if you may take showers. ??? If directed, put ice on the affected area to help with pain and swelling. ??? Do not lift anything that is heavier than 10 lb (4.5 kg) until your health care provider says that it is safe. Return to your normal activities as told by your health care provider. ??? If you were given a scrotal support, keep it dry. Wear the scrotal support as told by your health care provider. This information is not intended to replace advice given to you by your health care provider. Make sure you discuss any questions you have with your health care provider. Document Revised: 04/11/2022 Document Reviewed: 04/11/2022 [employer] Patient Education ? 2023 [employer].Hydrocelectomy, Adult A hydrocelectomy is a surgical procedure to remove a collection of fluid (hydrocele) from the scrotum. The scrotum is the pouch that holds the testicles. You may need to have this procedure if a hydrocele is causing painful swelling in your scrotum. Tell a health care provider about: ??? Any allergies you have. ??? All medicines you are taking, including vitamins, herbs, eye drops, creams, and ghye-aoj-xnyptkh medicines. ??? Any problems you or family members have had with anesthetic medicines. ??? Any bleeding problems you have. ??? Any surgeries you have had. ??? Any medical conditions you have. What are the risks? Generally, this is a safe procedure. However, problems may occur, including: ??? Bleeding into the scrotum (scrotal hematoma). ??? Damage to nearby structures or organs, including to the testicle or the tube that carries sperm out of the testicle (vas deferens). ??? Infection. ??? Allergic reactions to medicines. What happens before the procedure? When to stop eating and drinking Follow instructions from your health care provider about what you may eat and drink before your procedure. These may include: ??? 8 hours before your procedure ? Stop eating most foods. Do not eat meat, fried foods, or fatty foods. ? Eat only light foods, such as toast or crackers. ? All liquids are okay except energy drinks and alcohol. ??? 6 hours before your procedure ? Stop eating. ? Drink only clear liquids, such as water, clear fruit juice, black coffee, plain tea, and sports drinks. ? Do not drink energy drinks or alcohol. ??? 2 hours before your procedure ? Stop drinking all liquids. ? You may be allowed to take medicines with small sips of water. If you do not follow your health care provider's instructions, your procedure may be delayed or canceled. Medicines Ask your health care provider about: ??? Changing or stopping your regular medicines. This is especially important if you are taking diabetes medicines or blood thinners. ??? Taking medicines such as aspirin and ibuprofen. These medicines can thin your blood. Do not take these medicines unless your health care provider tells you to take them. ??? Taking wpeu-ptd-tezctpl medicines, vitamins, herbs, and supplements. Surgery safety Ask your health care provider: ??? How your surgery site will be marked. ??? What steps will be taken to help prevent infection. These steps may include: ? Removing hair at the surgery site. ? Washing skin with a germ-killing soap. ? Taking antibiotic medicine. General instructions ??? Do not use any products that contain nicotine or tobacco for at least 4 weeks before the procedure. These products include cigarettes, chewing tobacco, and vaping devices, such as e-cigarettes. If you need help quitting, ask your health care provider. ??? If you will be going home right after the procedure, plan to have a responsible adult: ? Take you home from the hospital or clinic. You will not be allowed to drive. ? Care for you for the time you are told. What happens during the procedure? An IV will be inserted into one of your veins. ??? You will be given one or both of the following: ? A medicine to make you relax (sedative). ? A medicine to make you fall asleep (general anesthetic). ??? A small incision will be made through the skin of your scrotum. ??? Your testicle and the hydrocele will be located, and the hydrocele sac will be opened with an incision. ??? The fluid will be drained from the hydrocele. Part of the hydrocele sac may be removed. ??? The hydrocele will be closed with stitches that dissolve (absorbable sutures). This prevents fluid from building up again. ??? If your hydrocele is large, you may have a thin, rubber drain placed to allow fluid to drain after the procedure. ??? The incision in your scrotum will be closed with absorbable sutures, skin glue, or adhesive strips. ??? A bandage (dressing) will be placed over the incision. The dressing may be held in place with an athletic support strap (scrotal support). The procedure may vary among health care providers and hospitals. What happens after the procedure? Your blood pressure, heart rate, breathing rate, and blood oxygen level will be monitored until you leave the hospital or clinic. ??? You will be given pain medicine as needed. ??? Your IV will be removed, and your insertion site will be checked for bleeding. ??? You may need to wear a scrotal support. This holds the dressing in place and supports your scrotum. ??? If you were given a sedative during the procedure, it can affect you for several hours. Do not drive or operate machinery until your health care provider says that it is safe. Summary ??? A hydrocelectomy is a surgical procedure to remove a collection of fluid from the scrotum. You may need to have this procedure if a hydrocele is causing painful swelling in your scrotum. ??? During the procedure, the hydrocele will be drained and then closed with stitches that dissolve (absorbable sutures). This prevents fluid from building up again. ??? If your hydrocele is large, you may have a thin, rubber drain placed to allow fluid to drain after the procedure. ??? You may need to wear a scrotal support after your procedure. This holds the dressing in place and supports your scrotum. This information is not intended to replace advice given to you by your health care provider. Make sure you discuss any questions you have with your health care provider. Document Revised: 04/11/2022 Document Reviewed: 04/11/2022 [employer] Patient Education ? 2023 [employer]. AMBULATORY VISIT SUMMARY Observed: 03/07 1:17 PM Status: F Source: [facility] Ambulatory Visit Summary MARTI MORGAN :1955 Visit Date:03/07/2025 Ambulatory Visit Instructions Your Diagnosis Hydrocele BPH with urinary obstruction Anticoagulated Your Care Team Attending Physician - Neri HIRSCH MD Primary Care Physician - SHAIKH FERNANDEZ MD This Is Your Medications List dutasteride (dutasteride 0.5 mg Cap) tamsulosin (tamsulosin 0.4 mg Cap) Contact prescribing physician if questions or concerns aspirin (aspirin 81 mg oral capsule) atorvastatin (atorvastatin 20 mg Tab) clopidogrel (clopidogrel 75 mg Tab) diclofenac topical (diclofenac topical 1% gel) meloxicam (meloxicam 15 mg Tab) metformin (metformin 500 mg Tab) metoprolol (metoprolol 50 mg ER Tab) multivitamin tadalafil (Cialis 10 mg Tab) Procedures Performed Flexible cystoscope (01/25/2025), Carpal tunnel, Colonoscopy, Tonsillectomy. Discharge Vitals Heart Rate (Peripheral) 78 Respiratory Rate 16 Blood Pressure 118/57 Height 192 cm Height 76 in Weight 120.2 kg Weight 264.995 lb BMI 32.61 What to do next Scheduled Follow-Up Appointments Friday 10:30 AM EST With: Neri HIRSCH MD Where: [facility] [address] [place] [address]- You Need to Schedule the Following Appointments Follow Up with Neri HIRSCH MD, URL When: Comments: [facility] [place] hydrocelectomy Where: [facility] [address], [place] [id number]- [id number] Medications What How Much When Why Instructions Unchanged dutasteride (dutasteride 0.5 mg Cap) 1 Capsules By Mouth Every day BPH with urinary obstruction Unchanged tamsulosin (tamsulosin 0.4 mg Cap) 1 Capsules By Mouth 2 times a day Unchanged aspirin (aspirin 81 mg oral capsule) 1 Capsules By Mouth Every day Contact prescribing physician if questions or concerns Unchanged atorvastatin (atorvastatin 20 mg Tab) Contact [...] prescribing physician if questions or concerns Unchanged tadalafil (Cialis 10 mg Tab) 2 Tablets By Mouth Every day as needed for for erectile dysfunction Contact prescribing physician if questions or concerns Allergies No Known Medication Allergies Problems Ongoing - Any problem that you are currently receiving treatment for. Anticoagulated Arthritis BPH with urinary obstruction Diabetes ED (erectile dysfunction) Feeling of incomplete bladder emptying History of kidney stones Hydrocele Hyperlipidemia Hypertension Prostate cancer screening TIA (transient ischemic attack) Patient Survey You may receive a survey via text or e-mail asking about your office visit. Please share your experience with us by completing your survey. We appreciate your feedback and thank you for choosing us for your care. Education Materials Hydrocelectomy, Adult, Care After The following information offers guidance on how to care for yourself after your procedure. Your health care provider may also give you more specific instructions. If you have problems or questions, contact your health care provider. What can I expect after the procedure? After your procedure, it is common to have: ??? Mild discomfort and swelling in the pouch that holds your testicles (scrotum). ??? Bruising of the scrotum. Follow these instructions at home: Medicines ??? Take sxlf-shk-hthxbyx and prescription medicines only as told by your health care provider. ??? Ask your health care provider if the medicine prescribed to you: ? Requires you to avoid driving or using machinery. ? Can cause constipation. You may need to take these actions to prevent or treat constipation: ? Drink enough fluid to keep your urine pale yellow. ? Take nlal-tmw-fxsohud or prescription medicines. ? Eat foods that are high in fiber, such as beans, whole grains, and fresh fruits and vegetables. ? Limit foods that are high in fat and processed sugars, such as fried or sweet foods. Bathing ??? Do not take baths, swim, or use a hot tub until your health care provider approves. Ask your health care provider if you may take showers. You may only be allowed to take sponge baths. ??? If you were told to wear an athletic support strap (scrotal support), keep it dry. Take it off when you shower or bathe. Incision care ??? Follow instructions from your health care provider about how to take care of your incision. Make sure you: ? Wash your hands with soap and water for at least 20 seconds before and after you change your bandage (dressing). If soap and water are not available, use hand direct marketing analyst. ? Change your dressing as told by your health care provider. ? Leave stitches (sutures), skin glue, or adhesive strips in place. These skin closures may need to stay in place for 2 weeks or longer. If adhesive strip edges start to loosen and curl up, you may trim the loose edges. Do not remove adhesive strips completely unless your health care provider tells you to do that. ??? Check your incision and scrotum every day for signs of infection. Check for: ? More redness, swelling, or pain. ? Fluid or blood. ? Warmth. ? Pus or a bad smell. Managing pain and swelling If directed, put ice on the affected area. To do this: ??? Put ice in a plastic bag. ??? Place a towel between your skin and the bag. ??? Leave the ice on for 20 minutes, 2???3 times per day. ??? Remove the ice if your skin turns bright red. This is very important. If you cannot feel pain, heat, or cold, you have a greater risk of damage to the area. Activity ??? Do not lift anything that is heavier than 10 lb (4.5 kg) until your health care provider says that it is safe. ??? If you were given a sedative during the procedure, it can affect you for several hours. Do not drive or operate machinery until your health care provider says that it is safe. ??? Ask your health care provider when it is safe to drive. ??? Return to your normal activities as told by your health care provider. Ask your health care provider what activities are safe for you. General instructions ??? Do not use any products that contain nicotine or tobacco. These products include cigarettes, chewing tobacco, and vaping devices, such as e-cigarettes. These can delay healing after surgery. If you need help quitting, ask your health care provider. ??? If you were given a scrotal support, wear it as told by your health care provider. ??? Keep all follow-up visits. This is important. If you had a drain put in during the procedure, you will need to have it removed at a follow-up visit. Contact a health care provider if: ??? Your pain is not controlled with medicine. ??? You have more redness, swelling, or pain around your scrotum. ??? You have fluid or blood coming from your incision. ??? Your incision feels warm to the touch. ??? You have pus or a bad smell coming from your incision. ??? You have a fever. Get help right away if: ??? You develop shaking, chills, and a fever that is higher than 101.8???F (38.8???C). ??? You have redness or swelling that starts at your scrotum and spreads outward to your whole groin. ??? You develop swelling in your legs. ??? You have difficulty breathing. These symptoms may be an emergency. Get help right away. Call 911. ??? Do not wait to see if the symptoms will go away. ??? Do not drive yourself to the hospital. Summary ??? After a hydrocelectomy, it is common to have mild discomfort, swelling, and bruising. ??? Do not take baths, swim, or use a hot tub until your health care provider approves. Ask your health care provider if you may take showers. ??? If directed, put ice on the affected area to help with pain and swelling. ??? Do not lift anything that is heavier than 10 lb (4.5 kg) until your health care provider says that it is safe. Return to your normal activities as told by your health care provider. ??? If you were given a scrotal support, keep it dry. Wear the scrotal support as told by your health care provider. This information is not intended to replace advice given to you by your health care provider. Make sure you discuss any questions you have with your health care provider. Document Revised: 04/11/2022 Document Reviewed: 04/11/2022 [employer] Patient Education ??? 2023 [employer] Hydrocelectomy, Adult A hydrocelectomy is a surgical procedure to remove a collection of fluid (hydrocele) from the scrotum. The scrotum is the pouch that holds the testicles. You may need to have this procedure if a hydrocele is causing painful swelling in your scrotum. Tell a health care provider about: ??? Any allergies you have. ??? All medicines you are taking, including vitamins, herbs, eye drops, creams, and evun-ydh-blgrhur medicines. ??? Any problems you or family members have had with anesthetic medicines. ??? Any bleeding problems you have. ??? Any surgeries you have had. ??? Any medical conditions you have. What are the risks? Generally, this is a safe procedure. However, problems may occur, including: ??? Bleeding into the scrotum (scrotal hematoma). ??? Damage to nearby structures or organs, including to the testicle or the tube that carries sperm out of the testicle (vas deferens). ??? Infection. ??? Allergic reactions to medicines. What happens before the procedure? When to stop eating and drinking Follow instructions from your health care provider about what you may eat and drink before your procedure. These may include: ??? 8 hours before your procedure ? Stop eating most foods. Do not eat meat, fried foods, or fatty foods. ? Eat only light foods, such as toast or crackers. ? All liquids are okay except energy drinks and alcohol. ??? 6 hours before your procedure ? Stop eating. ? Drink only clear liquids, such as water, clear fruit juice, black coffee, plain tea, and sports drinks. ? Do not drink energy drinks or alcohol. ??? 2 hours before your procedure ? Stop drinking all liquids. ? You may be allowed to take medicines with small sips of water. If you do not follow your health care provider's instructions, your procedure may be delayed or canceled. Medicines Ask your health care provider about: ??? Changing or stopping your regular medicines. This is especially important if you are taking diabetes medicines or blood thinners. ??? Taking medicines such as aspirin and ibuprofen. These medicines can thin your blood. Do not take these medicines unless your health care provider tells you to take them. ??? Taking kzpc-bll-vfrefih medicines, vitamins, herbs, and supplements. Surgery safety Ask your health care provider: ??? How your surgery site will be marked. ??? What steps will be taken to help prevent infection. These steps may include: ? Removing hair at the surgery site. ? Washing skin with a germ-killing soap. ? Taking antibiotic medicine. General instructions ??? Do not use any products that contain nicotine or tobacco for at least 4 weeks before the procedure. These products include cigarettes, chewing tobacco, and vaping devices, such as e-cigarettes. If you need help quitting, ask your health care provider. ??? If you will be going home right after the procedure, plan to have a responsible adult: ? Take you home from the hospital or clinic. You will not be allowed to drive. ? Care for you for the time you are told. What happens during the procedure? An IV will be inserted into one of your veins. ??? You will be given one or both of the following: ? A medicine to make you relax (sedative). ? A medicine to make you fall asleep (general anesthetic). ??? A small incision will be made through the skin of your scrotum. ??? Your testicle and the hydrocele will be located, and the hydrocele sac will be opened with an incision. ??? The fluid will be drained from the hydrocele. Part of the hydrocele sac may be removed. ??? The hydrocele will be closed with stitches that dissolve (absorbable sutures). This prevents fluid from building up again. ??? If your hydrocele is large, you may have a thin, rubber drain placed to allow fluid to drain after the procedure. ??? The incision in your scrotum will be closed with absorbable sutures, skin glue, or adhesive strips. ??? A bandage (dressing) will be placed over the incision. The dressing may be held in place with an athletic support strap (scrotal support). The procedure may vary among health care providers and hospitals. What happens after the procedure? Your blood pressure, heart rate, breathing rate, and blood oxygen level will be monitored until you leave the hospital or clinic. ??? You will be given pain medicine as needed. ??? Your IV will be removed, and your insertion site will be checked for bleeding. ??? You may need to wear a scrotal support. This holds the dressing in place and supports your scrotum. ??? If you were given a sedative during the procedure, it can affect you for several hours. Do not drive or operate machinery until your health care provider says that it is safe. Summary ??? A hydrocelectomy is a surgical procedure to remove a collection of fluid from the scrotum. You may need to have this procedure if a hydrocele is causing painful swelling in your scrotum. ??? During the procedure, the hydrocele will be drained and then closed with stitches that dissolve (absorbable sutures). This prevents fluid from building up again. ??? If your hydrocele is large, you may have a thin, rubber drain placed to allow fluid to drain after the procedure. ??? You may need to wear a scrotal support after your procedure. This holds the dressing in place and supports your scrotum. This information is not intended to replace advice given to you by your health care provider. Make sure you discuss any questions you have with your health care provider. Document Revised: 04/11/2022 Document Reviewed: 04/11/2022 Click Quote Save Patient Education ??? 2023 [employer] Patient Portal You may access all of your results and other medical record information on our secure patient portal. If you are not signed up for this yet, please contact Clifford Thames at [phone] to get signed up today. Language Information Language assistance services are available as needed. UROLOGY OFFICE/CLINIC NOTE Observed: 1:17 PM Status: F Source: [facility] Urology Office/Clinic Note Chief Complaint pt here to review scrotal u/s HPI Staff F/u with scrotal US. Dx: BPH with urinary obstruction, feeling of incomplete bladder emptying, hydrocele and anticoagulated. Flomax BID and Dutasteride 0.5mg qd IPSS: 20 SHIMS: 12 Denies pain/burning denies visible blood denies flank pain History of Present Illness Tests reviewed: reviewed UA, scrotal US I have reviewed the previous health record information and history for this patient from Dr. Hirsch. I have reviewed and verified the staff HPI to be accurate for this encounter. Review of Systems PHQ Score Initial Depression Screen Score: 0 SCORE ROS - Provider Constitutional: denies weight loss, denies hot flashes. Eyes: denies eye problems. Gastrointestinal: denies nausea, denies vomiting. Cardiovascular: denies chest pain or angina. Integumentary: no dryness Musculoskeletal: denies musculoskeletal symptoms. ENMT: denies otolaryngeal symptoms. Respiratory: no shortness of breath. Heme/Lymph: denies easy bleeding tendency, denies easy bruising tendency. Psychiatric: no confusion, no anxiety. Genitourinary: See HPI. Physical Exam Vitals & Measurements HR: 78(Peripheral) RR: 16 BP: 118/57 HT: 76 in HT: 192 cm WT: 264.995 lb WT: 120.2 kg BMI: 32.61 General Appearance: alert, no distress, well nourished, well developed male. Genitourinary: normal scrotum, normal testes, normal urethra, normal epididymis, normal vas deferens/spermatic cord. Assessment/Plan 1. Hydrocele (N43.3: Hydrocele, unspecified) Scrotal US 12/14/24 [facility] - Bilateral hydroceles, larger on L. Possible R varicocele. No testicular mass or torsion. Scrotal US 02/09/25 [facility] - Large L hydrocele. Small R hydrocele. Reviewed imaging results. Pt feels hydrocele has increased in size. Interferes w urination at times. More bothersome/uncomfortable, within the last 3 wks. Wishes to proceed w hydrocelectomy at this time. There is a 10-15% chance of recurrence of this scrotal fluid collection, which may require another procedure in the future. -Will schedule Left Hydrocelectomy. The procedure risks, benefits, and treatment alternatives have been discussed with the patient. These include bleeding, infection, recurrence of fluid collection in the scrotum in 10-15%, and need for additional procedures, among others. Full informed consent has been obtained. Will order General anesthesia. 2. BPH with urinary obstruction (N40.1: Benign prostatic hyperplasia with lower urinary tract symptoms) PSA 06/21/19 - 0.90 08/21/20 - 0.89 06/25/22 - 0.79 12/18/24 - 1.01 S/p Cysto 01/25/25 - Short, bilobar obstruction. UA neg. IPSS 20 (12). Taking Dutasteride 0.5 mg qd and Flomax 0.4 mg bid. Cont wo changes. 3. 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 Follow-up With When Contact Information BETO WEAVER, [employer], URL [facility] [address], [place] [phone] Additional Instructions: sched L hydrocelectomy Patient Education Hydrocelectomy, Adult, Care After Hydrocelectomy, Adult I, Sherry Fitzpatrick, personally scribed for Dr. Hirsch on 03/07/2025 15:22:21. . Documentation recorded by the scribe, Sherry Fitzpatrick, accurately reflects the services(s) I performed and decisions made by me. Authenticated by Dr. Hirsch on 03/07/2025 15:24:10. Problem List/Past Medical History Ongoing Anticoagulated Arthritis BPH with urinary obstruction Diabetes ED (erectile dysfunction) Feeling of incomplete bladder emptying History of kidney stones Hydrocele Hyperlipidemia Hypertension Prostate cancer screening TIA (transient ischemic attack) Historical No qualifying data Procedure/Surgical History Flexible cystoscope (01/25/2025), Carpal tunnel, Colonoscopy, Tonsillectomy. Medications aspirin 81 mg oral capsule, 81 mg= 1 cap(s), Oral, Daily atorvastatin 20 mg Tab Cialis 10 mg Tab, 20 mg= 2 tab(s), Oral, Daily, PRN clopidogrel 75 mg Tab diclofenac topical 1% gel dutasteride 0.5 mg Cap, 0.5 mg= 1 cap(s), Oral, Daily, 3 refills meloxicam 15 mg Tab metformin 500 mg Tab metoprolol 50 mg ER Tab, Oral, Daily multivitamin tamsulosin 0.4 mg Cap, 0.4 mg= 1 cap(s), Oral, BID, 6 refills Allergies No Known Medication Allergies Social History Alcohol Never., 12/29/2024 Substance Abuse Never., 12/29/2024 Tobacco Never (less than 100 in lifetime) Tobacco Use:. Never Smokeless Tobacco Use:., 03/07/2025 Family History Heart disease: Father and Grandparent. Immunizations Vaccine Date Status Comments influenza virus vaccine, inactivated 07/10/2024 Recorded influenza virus vaccine, inactivated 06/08/2024 Recorded 2025-01-17: [facility] pneumococcal 20-valent conjugate vaccine 09/13/2023 Recorded RSV vaccine preF3, recombinant 08/15/2023 Recorded influenza virus vaccine, inactivated 06/22/2023 Recorded SARS-CoV-2 (COVID-19) [id number] 07/04/2022 Recorded influenza virus vaccine, inactivated 06/15/2022 Recorded SARS-CoV-2 (COVID-19) mRNA BNT-162b2 vax 12/07/2020 Recorded SARS-CoV-2 (COVID-19) mRNA BNT-162b2 vax 11/17/2020 Recorded 2023: [id number] diphtheria/pertussis, acel/tetanus adult 06/30/2020 Recorded influenza virus vaccine, inactivated 06/30/2020 Recorded zoster vaccine, inactivated 03/15/2020 Recorded zoster vaccine, inactivated 10/11/2019 Recorded influenza virus vaccine, inactivated 07/29/2019 Recorded influenza virus vaccine, inactivated 07/17/2018 Recorded zoster vaccine live 12/19/2016 Recorded Lab Results Ambulatory Point of Care Results Bilirubin Urine Dipstick: Negative (03/07/25 14:23:00) Blood Urine Dipstick: Trace-intact (03/07/25 14:23:00) Glucose Urine Dipstick: Negative (03/07/25 14:23:00) Ketones Urine Dipstick: Negative (03/07/25 14:23:00) Leukocytes Urine Dipstick: Negative (03/07/25 14:23:00) Nitrite Urine Dipstick: Negative (03/07/25 14:23:00) Protein Urine Dipstick: Trace (03/07/25 14:23:00) Specific Gautier Urine Dipstick: >=1.030 (03/07/25 14:23:00) Urine Appearance Urine Dipstick: Clear (03/07/25 14:23:00) Urine Color Urine Dipstick: Dark yellow (03/07/25 14:23:00) Urobilinogen Urine Dipstick: Normal 0.2-1 EU/dl (03/07/25 14:23:00) pH Urine Dipstick: 5.5 (03/07/25 14:23:00) Result Comment: Electronical ly Signed By: Neri HIRSCH MD\.br\Date and Time Signed: 03/07/25 15:24 EDT\.br\Electronically Co-Signed By: Sherry Fitzpatrick\.br\Date and Time Co-Signed: 03/07/25 15:22 EDT AMBULATORY VISIT SUMMARY Observed: 03/07 1:17 PM Status: F Source: [facility] Ambulatory Visit Summary MARTI MORGAN :1955 Visit Date:03/07/2025 Ambulatory Visit Instructions Your Diagnosis Hydrocele BPH with urinary obstruction Anticoagulated Your Care Team Attending Physician - Neri HIRSCH MD Primary Care Physician - SHAIKH FERNANDEZ MD This Is Your Medications List dutasteride (dutasteride 0.5 mg Cap) tamsulosin (tamsulosin 0.4 mg Cap) Contact prescribing physician if questions or concerns aspirin (aspirin 81 mg oral capsule) atorvastatin (atorvastatin 20 mg Tab) clopidogrel (clopidogrel 75 mg Tab) diclofenac topical (diclofenac topical 1% gel) meloxicam (meloxicam 15 mg Tab) metformin (metformin 500 mg Tab) metoprolol (metoprolol 50 mg ER Tab) multivitamin tadalafil (Cialis 10 mg Tab) Procedures Performed Flexible cystoscope (01/25/2025), Carpal tunnel, Colonoscopy, Tonsillectomy. Discharge Vitals Heart Rate (Peripheral) 78 Respiratory Rate 16 Blood Pressure 118/57 Height 192 cm Height 76 in Weight 120.2 kg Weight 264.995 lb BMI 32.61 What to do next Scheduled Follow-Up Appointments Friday 10:30 AM EST With: Neri HIRSCH MD Where: [place] [address]- You Need to Schedule the Following Appointments Follow Up with Neri HIRSCH MD, URL When: Comments: westley L hydrocelectomy Where: [facility] [address], [place] [phone] Medications What How Much When Why Instructions Unchanged dutasteride (dutasteride 0.5 mg Cap) 1 Capsules By Mouth Every day BPH with urinary obstruction Unchanged tamsulosin (tamsulosin 0.4 mg Cap) 1 Capsules By Mouth 2 times a day Unchanged aspirin (aspirin 81 mg oral capsule) 1 Capsules By Mouth Every day Contact prescribing physician if questions or concerns Unchanged atorvastatin (atorvastatin 20 mg Tab) Contact [...] prescribing physician if questions or concerns Unchanged tadalafil (Cialis 10 mg Tab) 2 Tablets By Mouth Every day as needed for for erectile dysfunction Contact prescribing physician if questions or concerns Allergies No Known Medication Allergies Problems Ongoing - Any problem that you are currently receiving treatment for. Anticoagulated Arthritis BPH with urinary obstruction Diabetes ED (erectile dysfunction) Feeling of incomplete bladder emptying History of kidney stones Hydrocele Hyperlipidemia Hypertension Prostate cancer screening TIA (transient ischemic attack) Patient Survey You may receive a survey via text or e-mail asking about your office visit. Please share your experience with us by completing your survey. We appreciate your feedback and thank you for choosing us for your care. Education Materials Hydrocelectomy, Adult, Care After The following information offers guidance on how to care for yourself after your procedure. Your health care provider may also give you more specific instructions. If you have problems or questions, contact your health care provider. What can I expect after the procedure? After your procedure, it is common to have: ??? Mild discomfort and swelling in the pouch that holds your testicles (scrotum). ??? Bruising of the scrotum. Follow these instructions at home: Medicines ??? Take twqb-tqi-kvucnxs and prescription medicines only as told by your health care provider. ??? Ask your health care provider if the medicine prescribed to you: ? Requires you to avoid driving or using machinery. ? Can cause constipation. You may need to take these actions to prevent or treat constipation: ? Drink enough fluid to keep your urine pale yellow. ? Take bmpl-egm-wehnefa or prescription medicines. ? Eat foods that are high in fiber, such as beans, whole grains, and fresh fruits and vegetables. ? Limit foods that are high in fat and processed sugars, such as fried or sweet foods. Bathing ??? Do not take baths, swim, or use a hot tub until your health care provider approves. Ask your health care provider if you may take showers. You may only be allowed to take sponge baths. ??? If you were told to wear an athletic support strap (scrotal support), keep it dry. Take it off when you shower or bathe. Incision care ??? Follow instructions from your health care provider about how to take care of your incision. Make sure you: ? Wash your hands with soap and water for at least 20 seconds before and after you change your bandage (dressing). If soap and water are not available, use hand direct marketing analyst. ? Change your dressing as told by your health care provider. ? Leave stitches (sutures), skin glue, or adhesive strips in place. These skin closures may need to stay in place for 2 weeks or longer. If adhesive strip edges start to loosen and curl up, you may trim the loose edges. Do not remove adhesive strips completely unless your health care provider tells you to do that. ??? Check your incision and scrotum every day for signs of infection. Check for: ? More redness, swelling, or pain. ? Fluid or blood. ? Warmth. ? Pus or a bad smell. Managing pain and swelling If directed, put ice on the affected area. To do this: ??? Put ice in a plastic bag. ??? Place a towel between your skin and the bag. ??? Leave the ice on for 20 minutes, 2???3 times per day. ??? Remove the ice if your skin turns bright red. This is very important. If you cannot feel pain, heat, or cold, you have a greater risk of damage to the area. Activity ??? Do not lift anything that is heavier than 10 lb (4.5 kg) until your health care provider says that it is safe. ??? If you were given a sedative during the procedure, it can affect you for several hours. Do not drive or operate machinery until your health care provider says that it is safe. ??? Ask your health care provider when it is safe to drive. ??? Return to your normal activities as told by your health care provider. Ask your health care provider what activities are safe for you. General instructions ??? Do not use any products that contain nicotine or tobacco. These products include cigarettes, chewing tobacco, and vaping devices, such as e-cigarettes. These can delay healing after surgery. If you need help quitting, ask your health care provider. ??? If you were given a scrotal support, wear it as told by your health care provider. ??? Keep all follow-up visits. This is important. If you had a drain put in during the procedure, you will need to have it removed at a follow-up visit. Contact a health care provider if: ??? Your pain is not controlled with medicine. ??? You have more redness, swelling, or pain around your scrotum. ??? You have fluid or blood coming from your incision. ??? Your incision feels warm to the touch. ??? You have pus or a bad smell coming from your incision. ??? You have a fever. Get help right away if: ??? You develop shaking, chills, and a fever that is higher than 101.8???F (38.8???C). ??? You have redness or swelling that starts at your scrotum and spreads outward to your whole groin. ??? You develop swelling in your legs. ??? You have difficulty breathing. These symptoms may be an emergency. Get help right away. Call 911. ??? Do not wait to see if the symptoms will go away. ??? Do not drive yourself to the hospital. Summary ??? After a hydrocelectomy, it is common to have mild discomfort, swelling, and bruising. ??? Do not take baths, swim, or use a hot tub until your health care provider approves. Ask your health care provider if you may take showers. ??? If directed, put ice on the affected area to help with pain and swelling. ??? Do not lift anything that is heavier than 10 lb (4.5 kg) until your health care provider says that it is safe. Return to your normal activities as told by your health care provider. ??? If you were given a scrotal support, keep it dry. Wear the scrotal support as told by your health care provider. This information is not intended to replace advice given to you by your health care provider. Make sure you discuss any questions you have with your health care provider. Document Revised: 04/11/2022 Document Reviewed: 04/11/2022 [employer] Save Patient Education ??? 2023 [employer]. Hydrocelectomy, Adult A hydrocelectomy is a surgical procedure to remove a collection of fluid (hydrocele) from the scrotum. The scrotum is the pouch that holds the testicles. You may need to have this procedure if a hydrocele is causing painful swelling in your scrotum. Tell a health care provider about: ??? Any allergies you have. ??? All medicines you are taking, including vitamins, herbs, eye drops, creams, and mpjp-hpb-mipjeml medicines. ??? Any problems you or family members have had with anesthetic medicines. ??? Any bleeding problems you have. ??? Any surgeries you have had. ??? Any medical conditions you have. What are the risks? Generally, this is a safe procedure. However, problems may occur, including: ??? Bleeding into the scrotum (scrotal hematoma). ??? Damage to nearby structures or organs, including to the testicle or the tube that carries sperm out of the testicle (vas deferens). ??? Infection. ??? Allergic reactions to medicines. What happens before the procedure? When to stop eating and drinking Follow instructions from your health care provider about what you may eat and drink before your procedure. These may include: ??? 8 hours before your procedure ? Stop eating most foods. Do not eat meat, fried foods, or fatty foods. ? Eat only light foods, such as toast or crackers. ? All liquids are okay except energy drinks and alcohol. ??? 6 hours before your procedure ? Stop eating. ? Drink only clear liquids, such as water, clear fruit juice, black coffee, plain tea, and sports drinks. ? Do not drink energy drinks or alcohol. ??? 2 hours before your procedure ? Stop drinking all liquids. ? You may be allowed to take medicines with small sips of water. If you do not follow your health care provider's instructions, your procedure may be delayed or canceled. Medicines Ask your health care provider about: ??? Changing or stopping your regular medicines. This is especially important if you are taking diabetes medicines or blood thinners. ??? Taking medicines such as aspirin and ibuprofen. These medicines can thin your blood. Do not take these medicines unless your health care provider tells you to take them. ??? Taking ocxt-kme-betisja medicines, vitamins, herbs, and supplements. Surgery safety Ask your health care provider: ??? How your surgery site will be marked. ??? What steps will be taken to help prevent infection. These steps may include: ? Removing hair at the surgery site. ? Washing skin with a germ-killing soap. ? Taking antibiotic medicine. General instructions ??? Do not use any products that contain nicotine or tobacco for at least 4 weeks before the procedure. These products include cigarettes, chewing tobacco, and vaping devices, such as e-cigarettes. If you need help quitting, ask your health care provider. ??? If you will be going home right after the procedure, plan to have a responsible adult: ? Take you home from the hospital or clinic. You will not be allowed to drive. ? Care for you for the time you are told. What happens during the procedure? An IV will be inserted into one of your veins. ??? You will be given one or both of the following: ? A medicine to make you relax (sedative). ? A medicine to make you fall asleep (general anesthetic). ??? A small incision will be made through the skin of your scrotum. ??? Your testicle and the hydrocele will be located, and the hydrocele sac will be opened with an incision. ??? The fluid will be drained from the hydrocele. Part of the hydrocele sac may be removed. ??? The hydrocele will be closed with stitches that dissolve (absorbable sutures). This prevents fluid from building up again. ??? If your hydrocele is large, you may have a thin, rubber drain placed to allow fluid to drain after the procedure. ??? The incision in your scrotum will be closed with absorbable sutures, skin glue, or adhesive strips. ??? A bandage (dressing) will be placed over the incision. The dressing may be held in place with an athletic support strap (scrotal support). The procedure may vary among health care providers and hospitals. What happens after the procedure? Your blood pressure, heart rate, breathing rate, and blood oxygen level will be monitored until you leave the hospital or clinic. ??? You will be given pain medicine as needed. ??? Your IV will be removed, and your insertion site will be checked for bleeding. ??? You may need to wear a scrotal support. This holds the dressing in place and supports your scrotum. ??? If you were given a sedative during the procedure, it can affect you for several hours. Do not drive or operate machinery until your health care provider says that it is safe. Summary ??? A hydrocelectomy is a surgical procedure to remove a collection of fluid from the scrotum. You may need to have this procedure if a hydrocele is causing painful swelling in your scrotum. ??? During the procedure, the hydrocele will be drained and then closed with stitches that dissolve (absorbable sutures). This prevents fluid from building up again. ??? If your hydrocele is large, you may have a thin, rubber drain placed to allow fluid to drain after the procedure. ??? You may need to wear a scrotal support after your procedure. This holds the dressing in place and supports your scrotum. This information is not intended to replace advice given to you by your health care provider. Make sure you discuss any questions you have with your health care provider. Document Revised: 04/11/2022 Document Reviewed: 04/11/2022 [employer] Save Patient Education ??? 2023 [employer]. Patient Portal You may access all of your results and other medical record information on our secure patient portal. If you are not signed up for this yet, please contact Clifford Thames at [phone] to get signed up today. Language Information Language assistance services are available as needed. PATIENT EDUCATION Observed: 01/25/2025 3:21 PM Status: F Source: [facility] Patient Education Urology Benign Prostatic Hyperplasia Benign [...] or symptoms? Symptoms of this condition include: ??? Getting up often during the night to urinate. ??? Needing to urinate frequently during the day. ??? Difficulty starting urine flow. ??? Decrease in size and strength of your urine stream. ??? Leaking (dribbling) after urinating. ??? Inability to pass urine. This needs immediate treatment. ??? Inability to completely empty your bladder. ??? Pain when you pass urine. This is more common if there is also an infection. ??? Urinary tract infection (UTI). How is this diagnosed? This condition is diagnosed based on your medical history, a physical exam, and your symptoms. Tests will also be done, such as: ??? A post-void bladder scan. This measures any amount of urine that may remain in your bladder after you finish urinating. ??? A digital rectal exam. In a rectal exam, your health care provider checks your prostate by putting a lubricated, gloved finger into your rectum to feel the back of your prostate gland. This exam detects the size of your gland and any abnormal lumps or growths. ??? An exam of your urine (urinalysis). ??? A prostate specific antigen (PSA) screening. This is a blood test used to screen for prostate cancer. ??? An ultrasound. This test uses sound waves [...] severity of your condition. Treatment may include: ??? Observation and yearly exams. This may be the only treatment needed if your condition and symptoms are mild. ??? Medicines to relieve your symptoms, including: ? Medicines to shrink the prostate. ? Medicines to relax the muscle of the prostate. ??? Surgery in severe cases. Surgery may include: [...] the urethra. Follow these instructions at home: ??? Take mifs-ggd-uiqkdxh and prescription medicines only as told by your health care provider. ??? Monitor your symptoms for any changes. Contact your health care provider with any changes. ??? Avoid drinking large amounts of liquid before going to bed or out in public. ??? Avoid or reduce how much caffeine or alcohol you drink. ??? Give yourself time when you urinate. ??? Keep all follow-up visits. This is important. Contact a health care provider if: ??? You have unexplained back pain. ??? Your symptoms do not get better with treatment. ??? You develop side effects from the medicine you are taking. ??? Your urine becomes very dark or has a bad smell. ??? Your lower abdomen becomes distended and you have trouble passing urine. Get help right away if: ??? You have a fever or chills. ??? You suddenly cannot urinate. ??? You feel light-headed or very dizzy, or you faint. ??? There are large amounts of blood or clots in your urine. ??? Your urinary problems become hard to manage. ??? You develop moderate to severe low back or flank pain. The flank is the side of your body between the ribs and the hip. These symptoms may be an emergency. Get help right away. Call 911. ??? Do not wait to see if the symptoms will go away. ??? Do not drive yourself to the hospital. Summary ??? Benign prostatic hyperplasia (BPH) is an enlarged prostate that is caused by the normal aging process. It is not caused by cancer. ??? An enlarged prostate can press on the urethra. This can make it hard to pass urine. ??? This condition is more likely to develop in men older than 50 years. ??? Get help right away if you suddenly cannot urinate. This information is not intended to replace advice given to you by your health care provider. Make sure you discuss any questions you have with your health care provider. Document Revised: 03/13/2022 Document Reviewed: 03/13/2022 [employer] Patient Education ? 2023 [employer]. AMBULATORY VISIT SUMMARY Observed: 01/25 2:33 PM Status: F Source: [facility] Ambulatory Visit Summary MARTI MORGAN :1955 Visit Date:01/25/2025 Ambulatory Visit Instructions Your Diagnosis BPH with urinary obstruction Feeling of incomplete bladder emptying Hydrocele Anticoagulated Your Care Team Attending Physician - BETO WEAVER, Neri Painting Primary Care Physician - REBECCA WEAVER, This Is Your Medications List ciprofloxacin (Cipro 500 mg Tab) dutasteride (dutasteride 0.5 mg Cap) tamsulosin (tamsulosin 0.4 mg Cap) Contact prescribing physician if questions or concerns aspirin (aspirin 81 mg oral capsule) atorvastatin (atorvastatin 20 mg Tab) clopidogrel (clopidogrel 75 mg Tab) diclofenac topical (diclofenac topical 1% gel) meloxicam (meloxicam 15 mg Tab) metformin (metformin 500 mg Tab) metoprolol (metoprolol 50 mg ER Tab) multivitamin tadalafil (Cialis 10 mg Tab) Procedures Performed Flexible cystoscope (01/25/2025), Carpal tunnel, Colonoscopy, Tonsillectomy. Discharge Vitals Temperature (Temporal Artery) 36.1 ???C Heart Rate (Peripheral) 74 Respiratory Rate 16 Blood Pressure 136/77 Height 192 cm Height 76 in Weight 122.9 kg Weight 270.948 lb BMI 33.34 What to do next Scheduled Follow-Up Appointments Friday 10:30 AM EST With: Neri HIRSCH MD Where: [facility] [address] [place] [address]- You Need to Schedule the Following Appointments Follow Up with Neri HIRSCH MD, URL When: Where: [facility] [address], [place] [address]- Medications What How Much When Why Instructions Unchanged ciprofloxacin (Cipro 500 mg Tab) 1 Tablets By Mouth Every day take one tab day before procedure and one tab after procedure Unchanged dutasteride (dutasteride 0.5 mg Cap) 1 Capsules By Mouth Every day BPH with urinary obstruction Unchanged tamsulosin (tamsulosin 0.4 mg Cap) 1 Capsules By Mouth 2 times a day Unchanged aspirin (aspirin 81 mg oral capsule) 1 Capsules By Mouth Every day Contact prescribing physician if questions or concerns Unchanged atorvastatin (atorvastatin 20 mg Tab) Contact [...] prescribing physician if questions or concerns Unchanged tadalafil (Cialis 10 mg Tab) 2 Tablets By Mouth Every day as needed for for erectile dysfunction Contact prescribing physician if questions or concerns Medications and Immunizations Administered Given lidocaine Top 2% Gel w/Appl 6 mL, 6 mL, Topical. For: BPH with urinary obstruction, Feeling of incomplete bladder emptying, Hydrocele, Anticoagulated Allergies No Known Medication Allergies Problems Ongoing - Any problem that you are currently receiving treatment for. Anticoagulated Arthritis BPH with urinary obstruction Diabetes ED (erectile dysfunction) Feeling of incomplete bladder emptying History of kidney stones Hydrocele Hyperlipidemia Hypertension Prostate cancer screening TIA (transient ischemic attack) Patient Survey You may receive a survey via text or e-mail asking about your office visit. Please share your experience with us by completing your survey. We appreciate your feedback and thank you for choosing us for your care. Education Materials Benign Prostatic Hyperplasia Benign prostatic [...] or symptoms? Symptoms of this condition include: ??? Getting up often during the night to urinate. ??? Needing to urinate frequently during the day. ??? Difficulty starting urine flow. ??? Decrease in size and strength of your urine stream. ??? Leaking (dribbling) after urinating. ??? Inability to pass urine. This needs immediate treatment. ??? Inability to completely empty your bladder. ??? Pain when you pass urine. This is more common if there is also an infection. ??? Urinary tract infection (UTI). How is this diagnosed? This condition is diagnosed based on your medical history, a physical exam, and your symptoms. Tests will also be done, such as: ??? A post-void bladder scan. This measures any amount of urine that may remain in your bladder after you finish urinating. ??? A digital rectal exam. In a rectal exam, your health care provider checks your prostate by putting a lubricated, gloved finger into your rectum to feel the back of your prostate gland. This exam detects the size of your gland and any abnormal lumps or growths. ??? An exam of your urine (urinalysis). ??? A prostate specific antigen (PSA) screening. This is a blood test used to screen for prostate cancer. ??? An ultrasound. This test uses sound waves [...] severity of your condition. Treatment may include: ??? Observation and yearly exams. This may be the only treatment needed if your condition and symptoms are mild. ??? Medicines to relieve your symptoms, including: ? Medicines to shrink the prostate. ? Medicines to relax the muscle of the prostate. ??? Surgery in severe cases. Surgery may include: [...] the urethra. Follow these instructions at home: ??? Take ucfx-dly-xhgwvfp and prescription medicines only as told by your health care provider. ??? Monitor your symptoms for any changes. Contact your health care provider with any changes. ??? Avoid drinking large amounts of liquid before going to bed or out in public. ??? Avoid or reduce how much caffeine or alcohol you drink. ??? Give yourself time when you urinate. ??? Keep all follow-up visits. This is important. Contact a health care provider if: ??? You have unexplained back pain. ??? Your symptoms do not get better with treatment. ??? You develop side effects from the medicine you are taking. ??? Your urine becomes very dark or has a bad smell. ??? Your lower abdomen becomes distended and you have trouble passing urine. Get help right away if: ??? You have a fever or chills. ??? You suddenly cannot urinate. ??? You feel light-headed or very dizzy, or you faint. ??? There are large amounts of blood or clots in your urine. ??? Your urinary problems become hard to manage. ??? You develop moderate to severe low back or flank pain. The flank is the side of your body between the ribs and the hip. These symptoms may be an emergency. Get help right away. Call 911. ??? Do not wait to see if the symptoms will go away. ??? Do not drive yourself to the hospital. Summary ??? Benign prostatic hyperplasia (BPH) is an enlarged prostate that is caused by the normal aging process. It is not caused by cancer. ??? An enlarged prostate can press on the urethra. This can make it hard to pass urine. ??? This condition is more likely to develop in men older than 50 years. ??? Get help right away if you suddenly cannot urinate. This information is not intended to replace advice given to you by your health care provider. Make sure you discuss any questions you have with your health care provider. Document Revised: 03/13/2022 Document Reviewed: 03/13/2022 [employer] Patient Education ??? 2023 [employer]. UROLOGY OFFICE/CLINIC NOTE Observed: 2:33 PM Status: F Source: [facility] Urology Office/Clinic Note Chief Complaint cysto HPI Staff Cysto. Abx taken History of Present Illness Tests reviewed: I have reviewed the previous health record information and history for this patient from Dr. Hirsch. I have reviewed and verified the staff HPI to be accurate for this encounter. Review of Systems PHQ Score Initial Depression Screen Score: 0 SCORE ROS - Provider Constitutional: denies weight loss, denies hot flashes. Eyes: denies eye problems. Gastrointestinal: denies nausea, denies vomiting. Cardiovascular: denies chest pain or angina. Integumentary: no dryness Musculoskeletal: denies musculoskeletal symptoms. ENMT: denies otolaryngeal symptoms. Respiratory: no shortness of breath. Heme/Lymph: denies easy bleeding tendency, denies easy bruising tendency. Psychiatric: no confusion, no anxiety. Genitourinary: See HPI. Physical Exam Vitals & Measurements T: 36.1 ???C(Temporal Artery) HR: 74(Peripheral) RR: 16 BP: 136/77 HT: 192 cm HT: 76 in WT: 122.9 kg WT: 270.948 lb BMI: 33.34 General Appearance: alert, no distress, well nourished, well developed male. Procedure Operative Information Anesthesia Type: Local Procedure: Local Cystoscopy Complications: None Surgical risks, benefits, details of the procedure have been explained to the patient. Full informed consent has been obtained. Intraoperative Information Prepped: Patient is brought back to the endoscopy suite. Patient is placed in supine position. Patient prepped in the usual fashion with Betadine solution. 2% Xylocaine Jelly is placed per Urethra. After waiting several minutes, the Cystoscope is introduced. The Urethra is: Normal The Prostatic Urethra is: _Short, bilobar obstruction. The Bladder: _No tumor or stones, Trabeculated: Moderate (2) The Ureteral orifices: Show efflux of clear urine Specimens Removed: None Removal: Cystoscope is removed. The patient tolerated it well. Postoperative Information Patient is discharged home with antibiotic coverage. Follow up arranged. Assessment/Plan 1. BPH with urinary obstruction (N40.1: Benign prostatic hyperplasia with lower urinary tract symptoms) PSA 06/21/19 - 0.90 08/21/20 - 0.89 06/25/22 - 0.79 12/18/24 - 1.01 Pt had IO cysto today wo complications. Started Dutasteride 0.5 mg qd at prior OV. Taking Flomax 0.4 mg bid. Follow up 5 mos or sooner if needed. Pt understands and agrees with plan. -Cont Dutasteride 2. Feeling of incomplete bladder emptying (R39.14: Feeling of incomplete bladder emptying) PVR (cc): 05/20/23 - 430 then 23 3. Hydrocele (N43.3: Hydrocele, unspecified) Scrotal US 12/14/24 [facility] - Bilateral hydroceles, larger on L. Possible R varicocele. No testicular mass or torsion. -Cont monitoring 4. 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 Follow-up With When Contact Information BETO WEAVER, Neri Painting, [facility] [address], [place] [address]- Additional Instructions: 5 mos Patient Education Benign Prostatic Hyperplasia I, Dunia Santiago, personally scribed for Dr. Hirsch on 01/25/2025 15:35:33. . Documentation recorded by the scribe, Dunia Santiago, accurately reflects the services(s) I performed and decisions made by me. Authenticated by Dr. Hirsch on 01/25/2025 15:37:44. Problem List/Past Medical History Ongoing Anticoagulated Arthritis BPH with urinary obstruction Diabetes ED (erectile dysfunction) Feeling of incomplete bladder emptying History of kidney stones Hydrocele Hyperlipidemia Hypertension Prostate cancer screening TIA (transient ischemic attack) Historical No qualifying data Procedure/Surgical History Flexible cystoscope (01/25/2025), Carpal tunnel, Colonoscopy, Tonsillectomy. Medications aspirin 81 mg oral capsule, 81 mg= 1 cap(s), Oral, Daily atorvastatin 20 mg Tab Cialis 10 mg Tab, 20 mg= 2 tab(s), Oral, Daily, PRN Cipro 500 mg Tab, 500 mg= 1 tab(s), Oral, Daily clopidogrel 75 mg Tab diclofenac topical 1% gel dutasteride 0.5 mg Cap, 0.5 mg= 1 cap(s), Oral, Daily, 3 refills meloxicam 15 mg Tab metformin 500 mg Tab metoprolol 50 mg ER Tab, Oral, Daily multivitamin tamsulosin 0.4 mg Cap, 0.4 mg= 1 cap(s), Oral, BID, 6 refills Allergies No Known Medication Allergies Social History Alcohol Never., 12/29/2024 Substance Abuse Never., 12/29/2024 Tobacco Never (less than 100 in lifetime) Tobacco Use:. Never Smokeless Tobacco Use:., 01/25/2025 Family History Heart disease: Father and Grandparent. Immunizations Vaccine Date Status Comments influenza virus vaccine, inactivated 07/10/2024 Recorded influenza virus vaccine, inactivated 06/08/2024 Recorded 2025-01-17: [facility] pneumococcal 20-valent conjugate vaccine 09/13/2023 Recorded influenza virus vaccine, inactivated 06/22/2023 Recorded SARS-CoV-2 (COVID-19) [id number] 07/04/2022 Recorded influenza virus vaccine, inactivated 06/15/2022 Recorded SARS-CoV-2 (COVID-19) mRNA BNT-162b2 vax 12/07/2020 Recorded SARS-CoV-2 (COVID-19) mRNA BNT-162b2 vax 11/17/2020 Recorded 2023: [id number] diphtheria/pertussis, acel/tetanus adult 06/30/2020 Recorded influenza virus vaccine, inactivated 06/30/2020 Recorded zoster vaccine, inactivated 03/15/2020 Recorded zoster vaccine, inactivated 10/11/2019 Recorded influenza virus vaccine, inactivated 07/29/2019 Recorded influenza virus vaccine, inactivated 07/17/2018 Recorded zoster vaccine live 12/19/2016 Recorded Result Comment: Electronical ly Signed By: Neri HIRSCH MD\.br\Date and Time Signed: 01/25/25 15:37 EDT\.br\Electronically Co-Signed By: Dunia Santiago.br\Date and Time Co-Signed: 01/25/25 15:35 EDT PATIENT EDUCATION Observed: 01/03/2025 1:52 PM Status: C Source: [facility] Patient Education Urology Cystoscopy Cystoscopy is a procedure that is used to help diagnose and sometimes treat conditions that affect the lower urinary tract. The lower urinary tract includes the bladder and the urethra. The urethra is the tube that drains urine from the bladder. Cystoscopy is done using a thin, tube-shaped instrument with a light and camera at the end (cystoscope). The cystoscope may be hard or flexible, depending on the goal of the procedure. The cystoscope is inserted through the urethra, into the bladder. Cystoscopy may be recommended if you have: ??? Urinary tract infections that keep coming back. ??? Blood in the urine (hematuria). ??? An inability to control when you urinate (urinary incontinence) or an overactive bladder. ??? Unusual cells found in a urine sample. ??? A blockage in the urethra, such as a urinary stone. ??? Painful urination. ??? An abnormality in the bladder found during an intravenous pyelogram (IVP) or CT scan. Cystoscopy may also be done to remove a sample of tissue to be examined under a microscope (biopsy). Tell a health care provider about: ??? Any allergies you have. ??? All medicines you are taking, including vitamins, herbs, eye drops, creams, and tosd-ppy-zpyzjgl medicines. ??? Any problems you or family members have had with anesthetic medicines. ??? Any blood disorders you have. ??? Any surgeries you have had. ??? Any medical conditions you have. ??? Whether you are or may be . What are the risks? Generally, this is a safe procedure. However, problems may occur, including: ??? Infection. ??? Bleeding. ??? Allergic reactions to medicines. ??? Damage to other structures or organs. What happens before the procedure? Medicines Ask your health care provider about: ??? Changing or stopping your regular medicines. This is especially important if you are taking diabetes medicines or blood thinners. ??? Taking medicines such as aspirin and ibuprofen. These medicines can thin your blood. Do not take these medicines unless your health care provider tells you to take them. ??? Taking gsqh-qst-bgdvakz medicines, vitamins, herbs, and supplements. Tests You may have an exam or testing, such as: ??? X-rays of the bladder, urethra, or kidneys. ??? CT scan of the abdomen or pelvis. ??? Urine tests to check for signs of infection. General instructions ??? Follow instructions from your health care provider about eating or drinking restrictions. ??? Ask your health care provider what steps will be taken to help prevent infection. These steps may include: ? Washing skin with a germ-killing soap. ? Taking antibiotic medicine. ??? Plan to have a responsible adult take you home from the hospital or clinic. What happens during the procedure? You will be given one or more of the following: ? A medicine to help you relax (sedative). ? A medicine to numb the area (local anesthetic). ??? The area around the opening of your urethra will be cleaned. ??? The cystoscope will be passed through your urethra into your bladder. ??? Germ-free (sterile) fluid will flow through the cystoscope to fill your bladder. The fluid will stretch your bladder so that your health care provider can clearly examine your bladder rizo. ??? Your doctor will look at the urethra and bladder. Your doctor may take a biopsy or remove stones. ??? The cystoscope will be removed, and your bladder will be emptied. The procedure may vary among health care providers and hospitals. What can I expect after the procedure? After the procedure, it is common to have: ??? Some soreness or pain in your abdomen and urethra. ??? Urinary symptoms. These include: ? Mild pain or burning when you urinate. Pain should stop within a few minutes after you urinate. This may last for up to 1 week. ? A small amount of blood in your urine for several days. ? Feeling like you need to urinate but producing only a small amount of urine. Follow these instructions at home: Medicines ??? Take hagm-trh-qrpnuza and prescription medicines only as told by your health care provider. ??? If you were prescribed an antibiotic medicine, take it as told by your health care provider. Do not stop taking the antibiotic even if you start to feel better. General instructions ??? Return to your normal activities as told by your health care provider. Ask your health care provider what activities are safe for you. ??? If you were given a sedative during the procedure, it can affect you for several hours. Do not drive or operate machinery until your health care provider says that it is safe. ??? Watch for any blood in your urine. If the amount of blood in your urine increases, call your health care provider. ??? Follow instructions from your health care provider about eating or drinking restrictions. ??? If a tissue sample was removed for testing (biopsy) during your procedure, it is up to you to get your test results. Ask your health care provider, or the department that is doing the test, when your results will be ready. ??? Drink enough fluid to keep your urine pale yellow. ??? Keep all follow-up visits. This is important. Contact a health care provider if: ??? You have pain that gets worse or does not get better with medicine, especially pain when you urinate. ??? You have trouble urinating. ??? You have more blood in your urine. Get help right away if: ??? You have blood clots in your urine. ??? You have abdominal pain. ??? You have a fever or chills. ??? You are unable to urinate. Summary ??? Cystoscopy is a procedure that is used to help diagnose and sometimes treat conditions that affect the lower urinary tract. ??? Cystoscopy is done using a thin, tube-shaped instrument with a light and camera at the end. ??? After the procedure, it is common to have some soreness or pain in your abdomen and urethra. ??? Watch for any blood in your urine. If the amount of blood in your urine increases, call your health care provider. ??? If you were prescribed an antibiotic medicine, take it as told by your health care provider. Do not stop taking the antibiotic even if you start to feel better. This information is not intended to replace advice given to you by your health care provider. Make sure you discuss any questions you have with your health care provider. Document Revised: 05/08/2022 Document Reviewed: 04/06/2021 [employer] Patient Education ? 2023 [employer]Benign Prostatic Hyperplasia Benign prostatic hyperplasia (BPH) is [...] or symptoms? Symptoms of this condition include: ??? Getting up often during the night to urinate. ??? Needing to urinate frequently during the day. ??? Difficulty starting urine flow. ??? Decrease in size and strength of your urine stream. ??? Leaking (dribbling) after urinating. ??? Inability to pass urine. This needs immediate treatment. ??? Inability to completely empty your bladder. ??? Pain when you pass urine. This is more common if there is also an infection. ??? Urinary tract infection (UTI). How is this diagnosed? This condition is diagnosed based on your medical history, a physical exam, and your symptoms. Tests will also be done, such as: ??? A post-void bladder scan. This measures any amount of urine that may remain in your bladder after you finish urinating. ??? A digital rectal exam. In a rectal exam, your health care provider checks your prostate by putting a lubricated, gloved finger into your rectum to feel the back of your prostate gland. This exam detects the size of your gland and any abnormal lumps or growths. ??? An exam of your urine (urinalysis). ??? A prostate specific antigen (PSA) screening. This is a blood test used to screen for prostate cancer. ??? An ultrasound. This test uses sound waves [...] severity of your condition. Treatment may include: ??? Observation and yearly exams. This may be the only treatment needed if your condition and symptoms are mild. ??? Medicines to relieve your symptoms, including: ? Medicines to shrink the prostate. ? Medicines to relax the muscle of the prostate. ??? Surgery in severe cases. Surgery may include: [...] the urethra. Follow these instructions at home: ??? Take sqom-tmb-sppvqko and prescription medicines only as told by your health care provider. ??? Monitor your symptoms for any changes. Contact your health care provider with any changes. ??? Avoid drinking large amounts of liquid before going to bed or out in public. ??? Avoid or reduce how much caffeine or alcohol you drink. ??? Give yourself time when you urinate. ??? Keep all follow-up visits. This is important. Contact a health care provider if: ??? You have unexplained back pain. ??? Your symptoms do not get better with treatment. ??? You develop side effects from the medicine you are taking. ??? Your urine becomes very dark or has a bad smell. ??? Your lower abdomen becomes distended and you have trouble passing urine. Get help right away if: ??? You have a fever or chills. ??? You suddenly cannot urinate. ??? You feel light-headed or very dizzy, or you faint. ??? There are large amounts of blood or clots in your urine. ??? Your urinary problems become hard to manage. ??? You develop moderate to severe low back or flank pain. The flank is the side of your body between the ribs and the hip. These symptoms may be an emergency. Get help right away. Call 911. ??? Do not wait to see if the symptoms will go away. ??? Do not drive yourself to the hospital. Summary ??? Benign prostatic hyperplasia (BPH) is an enlarged prostate that is caused by the normal aging process. It is not caused by cancer. ??? An enlarged prostate can press on the urethra. This can make it hard to pass urine. ??? This condition is more likely to develop in men older than 50 years. ??? Get help right away if you suddenly cannot urinate. This information is not intended to replace advice given to you by your health care provider. Make sure you discuss any questions you have with your health care provider. Document Revised: 03/13/2022 Document Reviewed: 03/13/2022 Click Quote Save Patient Education ? 2023 [employer]. AMBULATORY VISIT SUMMARY Observed: 01/03 11:23 AM Status: F Source: [facility] Ambulatory Visit Summary EDDIEMARTI :1955 Visit Date:01/03/2025 Ambulatory Visit Instructions Your Diagnosis BPH with urinary obstruction Feeling of incomplete bladder emptying Hydrocele Anticoagulated Your Care Team Attending Physician - BETO WEAVER, Neri Painting Primary Care Physician - REBECCA WEAVER, Referring Physician - SOPHIE DELAROSA CNP This Is Your Medications List ciprofloxacin (Cipro 500 mg Tab) dutasteride (dutasteride 0.5 mg Cap) tamsulosin (tamsulosin 0.4 mg Cap) Contact prescribing physician if questions or concerns aspirin (aspirin 81 mg oral capsule) atorvastatin (atorvastatin 20 mg Tab) clopidogrel (clopidogrel 75 mg Tab) diclofenac topical (diclofenac topical 1% gel) meloxicam (meloxicam 15 mg Tab) metformin (metformin 500 mg Tab) metoprolol (metoprolol 50 mg ER Tab) multivitamin tadalafil (Cialis 10 mg Tab) Procedures Performed Carpal tunnel, Colonoscopy, Tonsillectomy. Discharge Vitals Heart Rate (Peripheral) 68 Blood Pressure 133/78 Height 192 cm Height 76 in Weight 122.9 kg Weight 270.948 lb BMI 33.34 What to do next You Need to Schedule the Following Appointments Follow Up with BETO WEAVER, NAYANA Weems When: Where: [facility] [address] , [facility] [place] [address]- [phone] Medications What How Much When Why Instructions New ciprofloxacin (Cipro 500 mg Tab) 1 Tablets By Mouth Every day take one tab day before procedure and one tab after procedure Pickup at [facility] 1424 New dutasteride (dutasteride 0.5 mg Cap) 1 Capsules By Mouth Every day BPH with urinary obstruction Refills: 3 Pickup at [facility] 142 Unchanged tamsulosin (tamsulosin 0.4 mg Cap) 1 Capsules By Mouth 2 times a day Unchanged aspirin (aspirin 81 mg oral capsule) 1 Capsules By Mouth Every day Contact prescribing physician if questions or concerns Unchanged atorvastatin (atorvastatin 20 mg Tab) Contact [...] prescribing physician if questions or concerns Unchanged tadalafil (Cialis 10 mg Tab) 2 Tablets By Mouth Every day as needed for for erectile dysfunction Contact prescribing physician if questions or concerns Pharmacy Information [facility]29: [address] [place], [place] [id number] [phone] Allergies No Known Medication Allergies Problems Ongoing - Any problem that you are currently receiving treatment for. Anticoagulated Arthritis BPH with urinary obstruction Diabetes ED (erectile dysfunction) Feeling of incomplete bladder emptying History of kidney stones Hydrocele Hyperlipidemia Hypertension Prostate cancer screening TIA (transient ischemic attack) Patient Survey You may receive a survey via text or e-mail asking about your office visit. Please share your experience with us by completing your survey. We appreciate your feedback and thank you for choosing us for your care. Education Materials Cystoscopy Cystoscopy is a procedure that is used to help diagnose and sometimes treat conditions that affect the lower urinary tract. The lower urinary tract includes the bladder and the urethra. The urethra is the tube that drains urine from the bladder. Cystoscopy is done using a thin, tube-shaped instrument with a light and camera at the end (cystoscope). The cystoscope may be hard or flexible, depending on the goal of the procedure. The cystoscope is inserted through the urethra, into the bladder. Cystoscopy may be recommended if you have: ??? Urinary tract infections that keep coming back. ??? Blood in the urine (hematuria). ??? An inability to control when you urinate (urinary incontinence) or an overactive bladder. ??? Unusual cells found in a urine sample. ??? A blockage in the urethra, such as a urinary stone. ??? Painful urination. ??? An abnormality in the bladder found during an intravenous pyelogram (IVP) or CT scan. Cystoscopy may also be done to remove a sample of tissue to be examined under a microscope (biopsy). Tell a health care provider about: ??? Any allergies you have. ??? All medicines you are taking, including vitamins, herbs, eye drops, creams, and oavd-lbv-sprwwtv medicines. ??? Any problems you or family members have had with anesthetic medicines. ??? Any blood disorders you have. ??? Any surgeries you have had. ??? Any medical conditions you have. ??? Whether you are or may be . What are the risks? Generally, this is a safe procedure. However, problems may occur, including: ??? Infection. ??? Bleeding. ??? Allergic reactions to medicines. ??? Damage to other structures or organs. What happens before the procedure? Medicines Ask your health care provider about: ??? Changing or stopping your regular medicines. This is especially important if you are taking diabetes medicines or blood thinners. ??? Taking medicines such as aspirin and ibuprofen. These medicines can thin your blood. Do not take these medicines unless your health care provider tells you to take them. ??? Taking jzcw-jae-emofkas medicines, vitamins, herbs, and supplements. Tests You may have an exam or testing, such as: ??? X-rays of the bladder, urethra, or kidneys. ??? CT scan of the abdomen or pelvis. ??? Urine tests to check for signs of infection. General instructions ??? Follow instructions from your health care provider about eating or drinking restrictions. ??? Ask your health care provider what steps will be taken to help prevent infection. These steps may include: ? Washing skin with a germ-killing soap. ? Taking antibiotic medicine. ??? Plan to have a responsible adult take you home from the hospital or clinic. What happens during the procedure? You will be given one or more of the following: ? A medicine to help you relax (sedative). ? A medicine to numb the area (local anesthetic). ??? The area around the opening of your urethra will be cleaned. ??? The cystoscope will be passed through your urethra into your bladder. ??? Germ-free (sterile) fluid will flow through the cystoscope to fill your bladder. The fluid will stretch your bladder so that your health care provider can clearly examine your bladder rizo. ??? Your doctor will look at the urethra and bladder. Your doctor may take a biopsy or remove stones. ??? The cystoscope will be removed, and your bladder will be emptied. The procedure may vary among health care providers and hospitals. What can I expect after the procedure? After the procedure, it is common to have: ??? Some soreness or pain in your abdomen and urethra. ??? Urinary symptoms. These include: ? Mild pain or burning when you urinate. Pain should stop within a few minutes after you urinate. This may last for up to 1 week. ? A small amount of blood in your urine for several days. ? Feeling like you need to urinate but producing only a small amount of urine. Follow these instructions at home: Medicines ??? Take buhp-zev-tcosgfp and prescription medicines only as told by your health care provider. ??? If you were prescribed an antibiotic medicine, take it as told by your health care provider. Do not stop taking the antibiotic even if you start to feel better. General instructions ??? Return to your normal activities as told by your health care provider. Ask your health care provider what activities are safe for you. ??? If you were given a sedative during the procedure, it can affect you for several hours. Do not drive or operate machinery until your health care provider says that it is safe. ??? Watch for any blood in your urine. If the amount of blood in your urine increases, call your health care provider. ??? Follow instructions from your health care provider about eating or drinking restrictions. ??? If a tissue sample was removed for testing (biopsy) during your procedure, it is up to you to get your test results. Ask your health care provider, or the department that is doing the test, when your results will be ready. ??? Drink enough fluid to keep your urine pale yellow. ??? Keep all follow-up visits. This is important. Contact a health care provider if: ??? You have pain that gets worse or does not get better with medicine, especially pain when you urinate. ??? You have trouble urinating. ??? You have more blood in your urine. Get help right away if: ??? You have blood clots in your urine. ??? You have abdominal pain. ??? You have a fever or chills. ??? You are unable to urinate. Summary ??? Cystoscopy is a procedure that is used to help diagnose and sometimes treat conditions that affect the lower urinary tract. ??? Cystoscopy is done using a thin, tube-shaped instrument with a light and camera at the end. ??? After the procedure, it is common to have some soreness or pain in your abdomen and urethra. ??? Watch for any blood in your urine. If the amount of blood in your urine increases, call your health care provider. ??? If you were prescribed an antibiotic medicine, take it as told by your health care provider. Do not stop taking the antibiotic even if you start to feel better. This information is not intended to replace advice given to you by your health care provider. Make sure you discuss any questions you have with your health care provider. Document Revised: 05/08/2022 Document Reviewed: 04/06/2021 [employer] Save Patient Education ??? 2023 [employer] Benign Prostatic Hyperplasia Benign prostatic hyperplasia (BPH) [...] or symptoms? Symptoms of this condition include: ??? Getting up often during the night to urinate. ??? Needing to urinate frequently during the day. ??? Difficulty starting urine flow. ??? Decrease in size and strength of your urine stream. ??? Leaking (dribbling) after urinating. ??? Inability to pass urine. This needs immediate treatment. ??? Inability to completely empty your bladder. ??? Pain when you pass urine. This is more common if there is also an infection. ??? Urinary tract infection (UTI). How is this diagnosed? This condition is diagnosed based on your medical history, a physical exam, and your symptoms. Tests will also be done, such as: ??? A post-void bladder scan. This measures any amount of urine that may remain in your bladder after you finish urinating. ??? A digital rectal exam. In a rectal exam, your health care provider checks your prostate by putting a lubricated, gloved finger into your rectum to feel the back of your prostate gland. This exam detects the size of your gland and any abnormal lumps or growths. ??? An exam of your urine (urinalysis). ??? A prostate specific antigen (PSA) screening. This is a blood test used to screen for prostate cancer. ??? An ultrasound. This test uses sound waves [...] severity of your condition. Treatment may include: ??? Observation and yearly exams. This may be the only treatment needed if your condition and symptoms are mild. ??? Medicines to relieve your symptoms, including: ? Medicines to shrink the prostate. ? Medicines to relax the muscle of the prostate. ??? Surgery in severe cases. Surgery may include: [...] the urethra. Follow these instructions at home: ??? Take zncw-jvw-jtljcgf and prescription medicines only as told by your health care provider. ??? Monitor your symptoms for any changes. Contact your health care provider with any changes. ??? Avoid drinking large amounts of liquid before going to bed or out in public. ??? Avoid or reduce how much caffeine or alcohol you drink. ??? Give yourself time when you urinate. ??? Keep all follow-up visits. This is important. Contact a health care provider if: ??? You have unexplained back pain. ??? Your symptoms do not get better with treatment. ??? You develop side effects from the medicine you are taking. ??? Your urine becomes very dark or has a bad smell. ??? Your lower abdomen becomes distended and you have trouble passing urine. Get help right away if: ??? You have a fever or chills. ??? You suddenly cannot urinate. ??? You feel light-headed or very dizzy, or you faint. ??? There are large amounts of blood or clots in your urine. ??? Your urinary problems become hard to manage. ??? You develop moderate to severe low back or flank pain. The flank is the side of your body between the ribs and the hip. These symptoms may be an emergency. Get help right away. Call 911. ??? Do not wait to see if the symptoms will go away. ??? Do not drive yourself to the hospital. Summary ??? Benign prostatic hyperplasia (BPH) is an enlarged prostate that is caused by the normal aging process. It is not caused by cancer. ??? An enlarged prostate can press on the urethra. This can make it hard to pass urine. ??? This condition is more likely to develop in men older than 50 years. ??? Get help right away if you suddenly cannot urinate. This information is not intended to replace advice given to you by your health care provider. Make sure you discuss any questions you have with your health care provider. Document Revised: 03/13/2022 Document Reviewed: 03/13/2022 [employer] Save Patient Education ??? 2023 [employer] UROLOGY OFFICE/CLINIC NOTE Observed: 11:23 AM Status: F Source: [facility] Urology Office/Clinic Note Chief Complaint Re-referral for hydrocele [facility] Staff re-referral for BPH by Sophie Delarosa CNP for hydrocele and swelling of Lt. half of scrotum Scrotal US 12/14/24 PSA 06/21/19- 0.90 08/21/20- 0.89 06/25/22- 0.79 12/18/24 - 1.01 CMP/CBC 12/18/24 *Tamsulosin 0.4mg qd IPSS 12 Pt. is having Lt. scrotal swelling, on going about a month Pt. occasionally having urge incontinence Pt. denies having pain with urination Pt. denies having gross hematuria Pt. denies having abd pain Pt. denies having flank pain History of Present Illness Tests reviewed: reviewed UA, referral records I have reviewed the previous health record information and history for this patient from external providers and [facility]. I have reviewed and verified the staff HPI to be accurate for this encounter. Review of Systems PHQ Score Initial Depression Screen Score: 0 SCORE ROS - Provider Constitutional: denies weight loss, denies hot flashes. Eyes: denies eye problems. Gastrointestinal: denies nausea, denies vomiting. Cardiovascular: denies chest pain or angina. Integumentary: no dryness Musculoskeletal: denies musculoskeletal symptoms. ENMT: denies otolaryngeal symptoms. Respiratory: no shortness of breath. Heme/Lymph: denies easy bleeding tendency, denies easy bruising tendency. Psychiatric: no confusion, no anxiety. Genitourinary: See HPI. Physical Exam Vitals & Measurements HR: 68(Peripheral) BP: 133/78 HT: 76 in HT: 192 cm WT: 270.948 lb WT: 122.9 kg BMI: 33.34 General Appearance: alert, no distress, well nourished, well developed male. Genitourinary: abnormalL side with a large hydrocele scrotum, normal testes, normal urethra, normal epididymis, normal vas deferens/spermatic cord. Assessment/Plan Re-referred by Sophie Delarosa CNP for hydrocele and swelling of left half of scrotum. Last seen by GISSELL 05/20/23. 1. BPH with urinary obstruction (N40.1: Benign prostatic hyperplasia with lower urinary tract symptoms) PSA 06/21/19 - 0.90 08/21/20 - 0.89 06/25/22 - 0.79 12/18/24 - 1.01 IPSS 12 (12). UA today shows trace-intact blood (not clinically significant), neg for infection. Feels stream has improved (10-15%) on increased dosage of Flomax but does not always feel he empties. Has to void 5-10 min after already doing so. Denies weak stream or hesitation. Denies hx of infections. Seldom nocturia. No UUI. Discussed adding new med in addition to cystoscopy to evaluate for bladder and prostate obstruction. Risks/benefits discussed. Pt wishes to proceed. -Start Dutasteride 0.5mg qd. Rx sent to [facility]. -Cont Tamsulosin 0.4mg bid -Will schedule cystoscopy. The risks and benefits for cystoscopy have been discussed. The risks include bleeding, infection, and irritation of the bladder and urinary channel, among others. The patient, after being informed of procedural details and after questions have been answered, wishes to proceed. Full informed consent has been obtained. Will order Local anesthesia. 2. Feeling of incomplete bladder emptying (R39.14: Feeling of incomplete bladder emptying) PVR 05/20/23 - 430mL - pt voided a second time about 15 mins later (unprompted) and second PVR 23mL. -See #1 3. Hydrocele (N43.3: Hydrocele, unspecified) Scrotal US 12/14/24 [facility] - Bilateral hydroceles, larger on L. Possible R varicocele. No testicular mass or torsion. Discussed the options for his hydrocele. There is no absolute indication that he needs this repaired. As the fluid collection increases in size and becomes more symptomatic, he may consider repair. This involves a scrotal incision, removing the sac of fluid, and, perhaps, removing part or all of the sac itself. There is a 10-15% chance of recurrence of this scrotal fluid collection, which may require another procedure in the future. Pt does not feel hydrocele is bothersome enough to warrant treatment at this time. -Cont monitoring 4. Anticoagulated (Z79.01: nursing home (current) use of anticoagulants) Plavix. [1] Follow-up With When Contact Information BETO WEAVER, Neri Painting, URL [facility] [address], [place] [phone] Additional Instructions: sched cysto Patient Education Cystoscopy Benign Prostatic Hyperplasia I, Sherry Fitzpatrick, personally scribed for Dr. Hirsch on 01/03/2025 13:52:57. . Documentation recorded by the scribe, Sherry Fitzpatrick, accurately reflects the services(s) I performed and decisions made by me. Authenticated by Dr. Hirsch on 01/03/2025 13:56:13. Problem List/Past Medical History Ongoing Anticoagulated Arthritis BPH with urinary obstruction Diabetes ED (erectile dysfunction) Feeling of incomplete bladder emptying History of kidney stones Hydrocele Hyperlipidemia Hypertension Prostate cancer screening TIA (transient ischemic attack) Historical No qualifying data Procedure/Surgical History Carpal tunnel, Colonoscopy, Tonsillectomy. Medications aspirin 81 mg oral capsule, 81 mg= 1 cap(s), Oral, Daily atorvastatin 20 mg Tab Cialis 10 mg Tab, 20 mg= 2 tab(s), Oral, Daily, PRN clopidogrel 75 mg Tab, Not taking diclofenac topical 1% gel meloxicam 15 mg Tab metformin 500 mg Tab metoprolol 50 mg ER Tab, Oral, Daily multivitamin tamsulosin 0.4 mg Cap, 0.4 mg= 1 cap(s), Oral, BID, 6 refills Allergies No Known Medication Allergies Social History Alcohol Never., 12/29/2024 Substance Abuse Never., 12/29/2024 Tobacco Never (less than 100 in lifetime) Tobacco Use:., 01/03/2025 Family History Heart disease: Father and Grandparent. Immunizations Vaccine Date Status Comments SARS-CoV-2 (COVID-19) mRNAMUL.ORD![id number] 07/04/2022 Recorded influenza virus vaccine, inactivated 06/15/2022 Recorded SARS-CoV-2 (COVID-19) mRNA BNT-162b2 vax 12/07/2020 Recorded SARS-CoV-2 (COVID-19) mRNA BNT-162b2 vax 11/17/2020 Recorded 2023: [id number] diphtheria/pertussis, acel/tetanus adult 06/30/2020 Recorded influenza virus vaccine, inactivated 06/30/2020 Recorded zoster vaccine, inactivated 03/15/2020 Recorded zoster vaccine, inactivated 10/11/2019 Recorded influenza virus vaccine, inactivated 07/29/2019 Recorded influenza virus vaccine, inactivated 07/17/2018 Recorded zoster vaccine live 12/19/2016 Recorded Lab Results Ambulatory Point of Care Results Bilirubin Urine Dipstick: Negative (01/03/25 12:34:00) Blood Urine Dipstick: Trace-intact (01/03/25 12:34:00) Glucose Urine Dipstick: Negative (01/03/25 12:34:00) Ketones Urine Dipstick: Negative (01/03/25 12:34:00) Leukocytes Urine Dipstick: Negative (01/03/25 12:34:00) Nitrite Urine Dipstick: Negative (01/03/25 12:34:00) Protein Urine Dipstick: Negative (01/03/25 12:34:00) Specific Gautier Urine Dipstick: 1.010 (01/03/25 12:34:00) Urine Appearance Urine Dipstick: Clear (01/03/25 12:34:00) Urine Color Urine Dipstick: Yellow (01/03/25 12:34:00) Urobilinogen Urine Dipstick: Normal 0.2-1 EU/dl (01/03/25 12:34:00) pH Urine Dipstick: 5.5 (01/03/25 12:34:00) [1] [facility]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, 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; RAMIN SIERRA PA-C 2023 11:40 EDT Result Comment: Electronical ly Signed By: Nrei HIRSCH MD\.br\Date and Time Signed: 01/03/25 13:56 EDT\.br\Electronically Co-Signed By: Sherry Fitzpatrick\.br\Date and Time Co-Signed: 01/03/25 13:53 EDT ALLERGIES DATE TYPE / CODE NAME / CODE REACTION SEVERITY SOURCE /[id number](SNOME D CT) No Known Medication Allergies [facility] ENCOUNTERS ADMIT/DISCHARGE ACCOUNT NUMBER ADMITTING ENCOUNTER CLASS LOCATION SOURCE 03/07/2025/ 5 [id number] [place] [facility] [place] [place] CD:[id number] [facility] 01/25/2025/ 5 [id number] [place] [place] Exam 1 [facility] 01/03/2025/ 5 [id number] [place] [facility] [place] [place] : Exam 3 [facility] 12/13/2024/ 5 [id number] Ambulatory Building:[facility] 08/24/2024/ 4 [id number] Ambulatory Building:[facility] 06/23/2024/ 4 [id number] Ambulatory Building:[facility] 03/29/2024/ 4 [id number] Ambulatory Building:[facility] 03/15/2024/ 4 [id number] Ambulatory Building:[facility] PAYERS ENCOUNTER GUARANTOR PAYER SUBSCRIBER SOURCE 03/07/2025 MARTI Hays RAPPDOB: MARTI STTel: ~~(41 (HP) Primary Insurance:[employer]IG[employer] olicy Number: [id number] tive Date:2023-02-06[address] [place] [address]NL: MARTI Hays [facility] 01/25/2025 MARTI Hays RAPPDOB: MARTI STTel: ~~(41 (HP) Primary Insurance:[employer] olicy Number: [id number] tive Date:2023-02-06[address] [place] [address]NA: MARTI Hays [facility] 01/03/2025 MARTI Hays RAPPDOB: MARTI KAPOORTel: ~~(41 (HP) Primary Insurance:[employer] olicy Number: [id number] tive Date:2023-02-06[address] [place] [address]SO[facility]2024 MARTI HARRINGTONPDOB: [place] [address]Oiy: (HP) Primary Insurance:[employer]IG[employer] olicy Number: [id number] tive Date:2017-10-09[address] [address]CY: MARTI LENPDOB: [id number] [facility] [place] [address] [facility] 08/24/2024 MARTI RAPPDOB: [place], [place] [address]Vxc: (HP) Primary Insurance:[facility] Number: [id number] tive Date:2017-10-09 [address] [place] [address]BV: MARTI RAPPDOB: [id number] [place] [address] [facility] 06/23/2024 MARTI RAPPDOB: [place] [address]Tjs: (HP) Primary Insurance:[facility] Number: [id number] tive Date:2017-10-09 [address] [address]KC: MARTI RAPPDOB: [id number] [place] [address] [facility] 03/29/2024 MARTI RAPPDOB: [place] [address]Pij: (HP) Primary Insurance:[facility] Number: [id number] tive Date:2017-10-09 [address]CP[place]BJM[address] [place] [address]EW: MARTI RAPPDOB: [id number] [place] [address] [facility] 03/15/2024 MARTI RAPPDOB: [facility] [place] [address]Atj: (HP) Primary Insurance:[facility] Number: [id number] tive Date:2017-10-09[id number] [address]IF: MARTI RAPPDOB: [id number] [place] [address] [facility] EPIC
--- OUTSIDE RECORDS SUMMARY | 2025-03-14 07:10 | XMS_ITS | Encounter Summary ---
Author Organization [facility] Address [address] [place] [address] Care Team Providers Care Attending Pathologist Name Role Phone Shen Perez MD Primary Care Provider [phone] Debbie Chavez COMPUTER SYSTEMS SECURITY ANALYST Unavailable [phone] Reason for Visit * Reason Comments Med Refill Encounter Details Date Type Department Care Team (Late st Contact Info) Description 03/05/2025 Refill [facility] [address] [place] [phone] Shen Perez MD [address] [place] [address] BPH with urinary obstruction Social History Tobacco Use Types Packs/Day Years [...] often do you attend chur ch or hoahaoism services? More than 4 times per year 08/25/2023 Do you belong to any clubs o r organizations such as druze groups, unions, fraternal or athletic groups, or [...] medical care, and heating? Patient declined 08/25/2023 [facility] - Occupational Stress Questionnaire Answer Date [...] place to sleep or slept in a fpc (including now)? No 08/25/2023 Sex and Gender Information Value Date Recorded Sex Assigned at Not on file Legal Sex Male 12:47 PM EDT Gender Identity Not on file Sexual Orientation Not on file documented as of this encounter Plan of Treatment Upcoming Encounters Date Type Department Care Team (Late st Contact Info) Description 04/12/2025 2:20 PM EDT Office Visit [facility] [address] [place] [phone] Sophie Delarosa NP [address] [place] [address] documented as of this encounter Visit Diagnoses Diagnosis BPH with urinary obstruction Hypertrophy of prostate with urinary obstruction and other lower urinary tract symptoms (LUTS) documented in this encounter Care Teams Attending Pathologist Relationship Specialty Start Date End Date Shen Perez MD [address] [place] [address] PCP - General Family Medicine 06/02/24 Debbie Chavez NP [address] [place] [phone] Nurse Practitioner Family Medicine 06/02/24 documented as of this encounter
--- OUTSIDE RECORDS SUMMARY | 2025-03-14 07:10 | XMS_ITS | Encounter Summary ---
[facility] [id number] [address] [place] [address] Care Team Providers Care Utility Person Name Role Phone Shaikh MEG Carlos Primary Care Provider [phone] Encounter Details Date Type Department Care Team (Late st Contact Info) Description 09/28/2021 Orders Only [facility] [address] [place] [address] Oralia Sevilla, MANA Preop testing [...] Naso Pharynx 10/06/2021 9:18 PM EST [facility] Sent to Testing to be performed at [facility]. 10/06/2021 9:18 PM EST [facility] 10/06/2021 9:18 PM EST [facility] Nasopharyngeal structure / Unknown 10/06/2021 10:57 AM EST 10/06/2021 9:14 PM EST us Anahi Yepez MD MICROBIOLOGY - GENERAL ORDE BHUMI Final Result [place] [facility] [address] [place] [address] documented in this encounter Visit Diagnoses Diagnosis Preop testing- Primary Unspecified pre-operative examination documented in this encounter Additional Health Concerns Infection Onset Date Last Indicated Resolved Time COVID-19 Rule-Out 10/29/2021 10/29/2021 10/29/2021 7:38 PM EST COVID-19 Rule-Out 11/19/2021 11/19/2021 11/19/2021 9:42 PM EDT documented as of this encounter Care Teams Utility Person Relationship Specialty Start Date End Date Shaikh Carlos MD PCP - General Internal Medicine 02/27/23 documented as of this encounter
--- OUTSIDE RECORDS SUMMARY | 2025-03-14 07:10 | XMS_ITS | Encounter Summary ---
Author Organization [facility] Address [address] [place] [address] Care Team Providers Care Hvac Sheet Metal Installer Name Role Phone Shen Perez MD Primary Care Provider [phone] Debbie Chavez OPERATING ROOM COORDINATOR Unavailable [phone] Reason for Visit * Reason Comments Med Refill Encounter Details Date Type Department Care Team (Late st Contact Info) Description 03/06/2025 Refill [facility] [address] [place] [phone] Shen Perez MD [address] [place] [phone] Other chronic pain Social History Tobacco Use Types Packs/Day Years [...] often do you attend chur ch or caodaism services? More than 4 times per year [...] medical care, and heating? Patient declined 08/25/2023 [facility] - Occupational [...] place to sleep or slept in a skilled nursing (including now)? No 08/25/2023 Sex and Gender [...] Office Visit [facility] [address] [place] [address] Sophie Delarosa NP [address] [place] [phone] documented as of this encounter Visit Diagnoses Diagnosis Other chronic pain documented in this encounter Care Teams Hvac Sheet Metal Installer Relationship Specialty Start Date End Date Shen Perez MD [address] [place] [phone] PCP - General Family Medicine 06/02/24 Debbie Chavez NP [address] [place] [phone] Nurse Practitioner Family Medicine 06/02/24 documented as of this encounter
--- OUTSIDE RECORDS SUMMARY | 2025-03-14 07:10 | XMS_ITS | Encounter Summary ---
Author Organization [facility] Address [address] [place] [address] Care Team Providers Care Corporate Communications Associate Name Role Phone Shaikh MEG Carlos Primary Care Provider [phone] Shaikh MEG Carlos Primary Care Provider [phone] Shen Perez MD Primary Care Provider [phone] Debbie Chavez NP Unavailable [phone] Encounter Details Date Type Department Care Team (Late st Contact Info) Description 09/19/2023 Abstract [facility] [address] [place] [address] Barbara Messer NP Social History Tobacco Use [...] often do you attend chur ch or moravian services? More than 4 times per year 08/25/2023 Do you belong to any clubs o r organizations such as methodist groups, unions, fraternal or athletic groups, or [...] medical care, and heating? Patient declined 08/25/2023 [facility] - Occupational [...] 04/12/2025 2:20 PM EDT Office Visit [facility] [address] [place] [address] Sophie Delarosa NP [address] [place] [address] documented as of this encounter Visit Diagnoses Not on filedocumented in this encounter Care Teams Corporate Communications Associate Relationship Specialty Start Date End Date Shaikh Carlos MD PCP - General Internal Medicine 09/08/22 02/24/24 Shaikh Carlos MD [address] [place] [phone] PCP - General Internal Medicine 02/25/24 06/01/24 Shen Perez MD [address] [place] [address] PCP - General Family Medicine 06/02/24 Debbie Chavez NP [address] [place] [address] Nurse Practitioner Family Medicine 06/02/24 documented as of this encounter
--- OUTSIDE RECORDS SUMMARY | 2025-03-14 07:10 | XMS_ITS | Encounter Summary ---
Author Organization [facility] Address [address] [place] [address] Care Team Providers Care Curing Room Supervisor Name Role Phone Shaikh MEG Carlos Primary Care Provider [phone] Shaikh MEG Carlos Primary Care Provider [phone] Shen Perez MD Primary Care Provider [phone] MAINTENANCE TECHNICIAN Unavailable [phone] Encounter Details Date Type Department Care Team (Late st Contact Info) Description 09/24/2023 Orders Only [facility] [address] [place] [address] Shaikh Carlos MD [address] [place] [address] Social History Tobacco Use Types Packs/Day Years [...] any clubs o r organizations such as congregational groups, unions, fraternal or athletic groups, or [...] medical care, and heating? Patient declined [facility] Answer Date [...] place to sleep or slept in a chcf (including now)? No 08/25/2023 Sex and Gender [...] Office Visit [facility] [address] [place] [address] Sophie Delarosa NP [address] [place] [address] documented as of this encounter Procedures Procedure Name Priority Date/Time Associated Diagnosis Comments MISCELLANEOUS LAB TEST Routine 09/04/2023 11:19 AM EST documented in this encounter Results * - Miscellaneous Test (09/04/2023 11:19 AM EST) Shaikh Breanna [facility] LAB BLOOD ORDERABLES Final Resu lt documented in this encounter Visit Diagnoses Not on filedocumented in this encounter Care Teams Curing Room Supervisor Relationship Specialty Start Date End Date Shaikh Carlos MD PCP - General Internal Medicine 09/08/22 02/24/24 Shaikh Carlos MD [address] [place] [address] PCP - General Internal Medicine 02/25/24 06/01/24 Shen Perez MD [address] [place] [address] PCP - General Family Medicine 06/02/24 Debbie Chavez NP [address] [place] [phone] Nurse Practitioner Family Medicine 06/02/24 documented as of this encounter
--- OUTSIDE RECORDS SUMMARY | 2025-03-14 07:10 | XMS_ITS | Clinical Summary ---
Author Organization [facility] Healthcare Address [address] [place] [address] Care Team Providers Care Bisque Placer Name Role Phone Shen Perez MD Primary Care Provider [phone] Debbie Chavez NP Unavailable [phone] Allergies No known active allergies Medications tadalafil (Cialis) 10 MG tablet Take 20 mg by mouth. 023 Active aspirin 81 MG EC tabletIndications :TIA (transient ischemic attack) Take 1 tablet (81 mg) by mouth Daily 90 tablet 3 024 2024 Active ferrous sulfate (FeroSul) 325 (65 Fe) MG tabletIndications :Iron deficiency Take 1 tablet (325 mg) by mouth in the morning. Take with meals. 90 tablet 024 Active fluticasone (Flonase) 50 MCG/ACT nasal sprayIndications: Acute rhinitis Administer 1-2 sprays into each nostril Daily Shake gently. Before first use, prime pump. After use, clean tip and replace cap. 16 g 2 025 2025 Active metoprolol succinate XL (Toprol-XL) 50 MG 24 hr tabletIndications :Primary hypertension Take 1 tablet (50 mg) by mouth Daily 90 tablet 1 025 2024 Active atorvastatin (Lipitor) 20 MG tabletIndications :Hyperlipidemia, unspecified hyperlipidemia type Take 1 tablet (20 mg) by mouth Daily 90 tablet 1 025 2024 Active metFORMIN (Glucophage) 500 MG tabletIndications :Prediabetes Take 1 tablet (500 mg) by mouth in the morning and 1 tablet (500 mg) in the evening. Take with meals. 180 tablet 1 025 2024 Active tamsulosin (Flomax) 0.4 MG 24 hr capsuleIndication s:BPH with urinary obstruction Take 1 capsule (0.4 mg) by mouth in the morning and 1 capsule (0.4 mg) before bedtime. 180 capsule 1 025 2024 Active meloxicam (Mobic) 15 MG tabletIndications :Other chronic pain Take 1 tablet (15 mg) by mouth Daily 90 tablet 1 025 2024 Active atorvastatin (Lipitor) 20 MG tabletIndications :Hyperlipidemia, unspecified hyperlipidemia type Take 1 tablet (20 mg) by mouth Daily 90 tablet 1 024 2024 Discontinued(R eorder) metFORMIN (Glucophage) 500 MG tabletIndications :Prediabetes TAKE 1 TABLET BY MOUTH IN THE MORNING AND 1 IN THE EVENING WITH MEALS 180 tablet 025 2024 Discontinued(R eorder) meloxicam (Mobic) 15 MG tabletIndications :Other chronic pain Take 1 tablet (15 mg) by mouth Daily 90 tablet 025 2024 Discontinued tamsulosin (Flomax) 0.4 MG 24 hr capsuleIndication s:BPH with urinary obstruction Take 1 capsule (0.4 mg) by mouth in the morning and 1 capsule (0.4 mg) before bedtime. 180 capsule 025 2024 Discontinued Active Problems Problem Noted Date Diagnosed Date Hydrocele in adult 12/17/2024 Screening for prostate cancer 12/13/2024 Overview (12/20/2024): PSA: 1.01 12/18/24 Swelling of left half of scrotum 12/13/2024 Assessment & Plan (12/13/2024 10:30 AM EDT): Suspected inguinal hernia with hydrocele Check US [facility] MAR (obstructive sleep apnea) 12/13/2024 Assessment [...] Assessment & Plan (08/26/2023 4:24 PM EST): Liban seems to be working for him. Doing [...] Encounters Date Type Department Care Team Description 03/06/2025 Refill [facility] [address] [place] [address] Shen Perez MD Other chronic pain 03/05/2025 Refill [facility] [address] [place] [address] Shen Perez MD BPH with urinary obstruction 02/25/2025 Refill [facility] [address] [place] [address] Shen Perez MD Prediabetes 02/23/2025 Refill [facility] [address] [place] [address] Shen Perez MD Hyperlipidemia, unspecified hyperlipidemia type 02/09/2025 Clinisync Result Encounter [facility] External Department Unsolicited Provider, Generic External Data 01/12/2025 Refill [facility] [address] [place] [address] Shen Perez MD Primary hypertension 01/03/2025 Refill [facility] [address] [place] [address] Shen Perez MD Acute rhinitis 01/03/2025 Refill [facility] [address] [place] [phone] Shen Perez MD Acute rhinitis 12/18/2024 Clinisync Result Encounter [facility]OMS External Department Unsolicited Sophie Delarosa NP 12/17/2024 Orders Only [facility] [address] [place] [address] Sophie Delarosa NP Hydrocele in adult (Primary Dx); Swelling of left half of scrotum 12/14/2024 Clinisync Result Encounter [facility]OMS External Department Unsolicited Sophie Delarosa NP 12/13/2024 10:00 AM EDT Office Visit [facility] [address] [place] [phone] Sophie Delarosa NP Swelling of left half of scrotum (Primary Dx); Primary hypertension ; BPH with urinary obstruction; Erectile dysfunction, unspecified erectile dysfunction type; Prediabetes; Iron deficiency anemia, unspecified iron deficiency anemia type; Mixed hyperlipidemia ; Screening for prostate cancer; MAR (obstructive sleep apnea) 12/13/2024 Bamboo flowsheet [facility] [address] [place] [phone] Sophie Delarosa NP from Last 3 Months Immunizations Immunization Administration Dates Next Due Influenza, High Dose Seasonal, Preservative Free 07/10/2024 Influenza, Seasonal, Quadrivalent, Adjuvanted ,06/15/2022 Influenza, injectable, MDCK, preservative free, quadrivalent 07/17/2018 Influenza, injectable, quadrivalent, preservativ e free 06/30/2020,07/29/2019 Influenza, seasonal, injectable 06/08/2024 Novel [id number], preservative-free 09/18 Pneumococcal Conjugate PCV 20 09/13/2023 [...] How often do you attend chur or lutheran services? More than 4 times per year 08/25/2023 Do you belong to any clubs o r organizations such as jehovah's witness groups, unions, fraternal or athletic groups, or [...] you are drinking? Patient does not drink 3 Q3: How often do you have si x or more drinks on one occasion? Never 08/25/2023 Overall Financial Resource Strain (CARDIA) Answe r Date Recorded How hard is it for you to pa y for the very basics like food, housing, medical care, and heating? Patient declined 08/25/2023 [facility] - Occupational Stress Questionnaire Answer Date [...] place to sleep or slept in a long-term (including now)? No 08/25/2023 Sex and Gender [...] EDT Office Visit [facility] [address] [place] [address] Sophie Delarosa, [place] [address] [place] [address] Health Maintenance Due Date Last Done Comments CT Colonography 1955 FIT-DNA 1955 FIT 1955 FOBT 1955 Sigmoidoscopy 1955 Influenza Vaccine (#1) 2025 4, 06/08/2024, 06/22/2023, Additional history exists Diabetes: Retinopathy Screening 08/18/2025 3, 02/28/2023 Diabetes: Urine Protein Screening 12/18/2025 12/18/2024, 02/28/2023, 02/27/2023, Additional history exists Colonoscopy 10/07/2027 10/07/2017 Colorectal Cancer Screening 10/07/2027 Diabetes: Hemoglobin A1C Discontinued 02/28/2023 Pneumococcal Vaccine: 65+ Years Completed 4 Procedures Procedure Name Priority Date/Time Associated Diagnosis Comments US SCROTUM 02/09/2025 6:42 PM EDT TRANSFERRIN Routine 12/18/2024 8:16 AM EDT [facility] FERRITIN Routine 12/18/2024 8:16 AM EDT SRMCOH PROSTATE SPECIFIC ANTIGEN SCRN Routine 12/18/2024 8:16 AM EDT METRO IRON AND TIBC Routine 12/18/2024 8 :16 AM EDT ALL LIPID PROFILE (FASTING) Routine 12/18/2024 8:16 AM EDT [facility] CMP (CMP) (FOR REMOTE [facility] USE) Routine 12/18/2024 8:16 AM EDT MLR [...] EDT from Last 3 Months Results * US scrotum (02/09/2025 6:42 PM EDT) Only the most recent of2 resultswithin the time period is included. Anatomical Region Laterality Modality Body Ultrasound 02/09/2025 6:42 PM EDT Narrative 02/10/2025 9:50 [place] [address] Ultrasound Report Signed Patient: MARTI MAHAJAN MR#: [id number] : 1955 Acct:[id number] Age/Sex: 69 / M ADM Date: 02/09/25 Loc: US Attending Dr: Neri Pérez M.D. Ordering Physician: Neri Pérez M.D. Date of Service: 02/09/25 Procedure(s): US scrotum Accession Number(s): [id number] cc: Sophie Delarosa ADMINISTRATIVE ASSISTANT RECEPTIONIST; Neri Pérez M.D. The [address] [address] Patient Name: MARTI MAHAJAN MRN: [id number] date: 1955 Sex: M Assigned Patient Location: US Current Patient Location: US Accession/Order Number: [id number] Exam Date: 02/09/2025 18:40 Report Date: 02/09/2025 18:42 At the request of: NERI PÉREZ MD Procedure: US scrotum Scrotal ultrasound HISTORY: Left hydrocele COMPARISON: None RIGHT testicle measures 4.2 x 2.5 x 2.7 cm. LEFT testicle measures 5.1 x 2.6 x 2.9 cm. No testicular mass or microcalcifications identified. Normal color flow of both testicles identified. RIGHT epididymal head measures 9 mm containing 3 mm anechoic cyst. LEFT epididymal head measures 7 mm. . Small right hydrocele. Large left hydrocele. No scrotal wall abnormality identified. US/US scrotum IMPRESSION: Large left hydrocele. Small right hydrocele. Unremarkable testicles. Unremarkable right and left epididymis Impression dictated by: Clinton Rudolph M.D. 02/09/2025 6:42 PM Dictation Location: [place] [address] Electronically authenticated by: [id number] Y Date: 02/09/2025 18:42 Dictated By: Clinton Rudolph D.O. Signed By: 02/10/25 0950 DD/ 41 TD/TT: Jazz Singer: Procedure Note Radiology, Radiologist, - 02/10/[address] [address] Ultrasound Report Signed Patient: MARTI MAHAJAN LMR#: [id number] : 1955cct:[id number] Age/Sex: 69 / MADM Date: 02/09/25 Loc: US Attending Dr: Neri Pérez M.D. Ordering Physician: Neri Pérez M.D. Date of Service: 02/09/25 Procedure(s): US scrotum Accession Number(s): [id number] cc: Sophie Delarosa ADMINISTRATIVE ASSISTANT RECEPTIONIST; Neri Pérez M.D. [place] [id number] Patient Name: MARTI MAHAJAN MRN: [id number] date: 1955 Sex: M Assigned Patient Location: US Current Patient Location: US Accession/Order Number: [id number] Exam Date: 02/09/2025 18:40 Report Date: 02/09/2025 18:42 At the request of: NERI PÉREZ MD Procedure: US scrotum Scrotal ultrasound HISTORY: Left hydrocele COMPARISON: None RIGHT testicle measures 4.2 x 2.5 x 2.7 cm. LEFT testicle measures 5.1 x 2.6 x 2.9 cm. No testicular mass or microcalcifications identified. Normal color flow of both testicles identified. RIGHT epididymal head measures 9 mm containing 3 mm anechoic cyst. LEFT epididymal head measures 7 mm. . Small right hydrocele. Large left hydrocele. No scrotal wall abnormality identified. US/US scrotum IMPRESSION: Large left hydrocele. Small right hydrocele. Unremarkable testicles. Unremarkable right and left epididymis Impression dictated by: Clinton Rudolph M.D. 02/09/2025 6:42 PM Dictation Location: [place] [address] Electronically authenticated by: [id number] Y Date: 8:42 Dictated By: Clinton Rudolph D.O. Signed By:02/10/25 0950 DD/ 184 TD/TT: Jazz Singer: us Generic External Data Provider IMG US PROCEDURES Final Result * TRANSFERRIN (12/18/2024 8:16 AM EDT) TRANSFERRIN 283 177 - 329 mg/dL TB Comment: Performed at: - [facility] [id number] Scooter Mechanic: Leland Cordova PhD, Phone: [phone] 12/18/2024 8:16 AM EDT 12/18/2024 8:25 AM EDT Narrative [facility] - 12/19/2024 8:29 AM EDT us Sophie Delarosa NP LAB BLOOD ORDERABLES Final Resu lt [facility] * SRMCOH PROSTATE SPECIFIC ANTIGEN SCRN (12/18/2024 8:16 AM EDT) PROSTATE SPECIFIC ANTIGEN SCRN 1.01 <=4.00 ng/mL TB 12/18/2024 8:16 AM EDT 12/18/2024 8:25 AM EDT Narrative [facility] - 12/18/2024 9:33 AM EDT us Sophie Delarosa NP [facility] Final Result Performing Organization Address City/[facility]/ZIP Co de Phone Number [facility] * MLR HEMOGLOBIN A1C (12/18/2024 8:16 AM EDT) GLYCOHEMOGLOBIN A1C 5.8 4.5 - 6.2 % [facility] Comment: ADA RECOMMENDED LIMIT 4.0 - 6.0 ADA THERAPEUTIC TARGET < 7.0 ACTION SUGGESTED > 7.0 ESTIMATED AVERAGE GLUCOSE 120 mg/dL TB 12/18/2024 8:16 AM EDT 12/18/2024 8:25 AM EDT Narrative [facility] - 12/18/2024 8:53 AM EDT us Sophie Delarosa NP [facility] * METRO IRON AND TIBC (12/18/2024 8:16 AM EDT) TBH IRON 65.0 65.0 - 175.0 ug/dL TBH TBH TOTAL IRON BINDING CAPACITY 343.0 250.0 - 450.0 ug/dL TBH TBH PERCENT IRON SATURATION 19.0 % TBH 12/18/2024 8:16 AM EDT 12/18/2024 8:25 AM EDT Narrative [facility] - 12/18/2024 9:33 AM EDT Sophie Delarosa ADMINISTRATIVE ASSISTANT RECEPTIONIST [facility] Final Result [facility] * [facility]CF FERRITIN (12/18/2024 8:16 AM EDT) FERRITIN 33.0 26.0 - 388.0 ng/mL TBH 12/18/2024 8:16 AM EDT 12/18/2024 8:25 AM EDT Narrative [facility] - 12/18/2024 11:00 AM EDT Sophie Delarosa NP [facility] Final Result [facility] * (ABNORMAL) [facility] CMP (CMP) (FOR REMOTE [facility] USE) (12/18/2024 8:16 AM EDT) SODIUM 140 136 - 145 mmol/L TBH POTASSIUM 4.1 3.5 - 5.1 mmol/L TBH CHLORIDE 107 98 - 107 mmol/L TBH CARBON DIOXIDE 26.1 21.0 - 32.0 mmol/L TBH ANION GAP 11.0 TBH GLUCOSE 108(H) 74 - 106 mg/dL TBH BLOOD UREA NITROGEN 28.0(H) 7.0 - 18.0 mg/dL TBH CREATININE 0.80 0.70 - 1.30 mg/dL TBH TBH EGFR-AF BAHRAINI >60 >=60 mL/min/1. 73m 2 TBH TBH EGFR-NON AF BAHRAINI >60 >=60 mL/min/1. 73m 2 TBH BUN [...] 3.1 g/dL TBH ALBUMIN GLOBULIN RATIO 1.2 TB 12/18/2024 8:16 AM EDT 12/18/2024 8:25 AM EDT Narrative [facility] - 12/18/2024 9:25 AM EDT us Sophie Delarosa NP [facility] Final Result Performing Organization Address [facility] Co de Phone Number [facility] * ALL LIPID PROFILE (FASTING) (12/18/2024 8:16 AM EDT) TRIGLYCERIDES 29 <=150 mg/dL TBH CHOLESTEROL 105 <=200 mg/dL TB HDL CHOLESTEROL 58 40 - 60 mg/dL TB Comment: > or =60 mg/dl - LOW CARDIOVASCULAR RISK <40 mg/dl - HIGH CARDIOVASCULAR RISK LDL CHOLESTEROL CALCULATED 41.2 mg/dL [facility] Comment: <100 mg/dl OPTIMAL 100-129 mg/dl NEAR [...] us Sophie Delarosa NP [facility] Final Result [facility] TB * (ABNORMAL) ALL CBC WITH AUTO DIFF (12/18/2024 8:16 AM EDT) [facility] TB WBC 8.4 4.0 - 11.0 10 [...] NP [facility] Final Result Performing Organization Address [facility] de Phone Number [facility] * (ABNORMAL) [...] NP [facility] Final Result Performing Organization Address [facility] de Phone Number [facility] * TBH UA (CLEAN/CATCH) MICROSCOPIC IF INDICATE [...] EDT Sophie Delarosa NP [facility] Final [facility] * TBH MICROALB CREAT RATIO RANDOM (12/18/2024 8:08 AM EDT) MICROALBUMIN URINE RANDOM <1.3 <=30.0 mg/dL TBH CREATININE URINE RANDOM 111.64 20.00 - 300.00 mg/dL TBH 12/18/2024 8:08 AM EDT 12/18/2024 8:25 AM EDT Narrative [facility] - 12/18/2024 8:43 AM EDT us Sophie Delarosa NP [facility] Final Result [facility] Last 3 Months Insurance [facility] Care Teams Bisque Placer Relationship Specialty Start Date End Date Shen Perez MD [address] [place] [phone] PCP - General Family Medicine 06/02/24 Debbie Chavez NP [address] [place] [address] Nurse Practitioner Family Medicine 06/02/24
--- OUTSIDE RECORDS SUMMARY | 2025-03-14 07:10 | XMS_ITS | Encounter Summary ---
Author Organization [facility] Address [address] [place] [address] Care Team Providers Care Bow Maker Name Role Phone Shaikh MEG Carlos Primary Care Provider [phone] Shen Perez MD Primary Care Provider [phone] Debbie Chavez NP Unavailable [phone] Encounter Details Date Type Department Care Team (Late st Contact Info) Description 03/02/2024 Clinisync Result Encounter [facility] External Department Unsolicited Shaikh Carlos MD [address] [place] [address] Social History Tobacco Use Types Packs/Day Years [...] How often do you attend chur or hinduism services? More than 4 times per year 08/25/2023 Do you belong to any clubs o r organizations such as mandaeism groups, unions, fraternal or athletic groups, or [...] medical care, and heating? Patient declined 08/25/2023 [facility] - Occupational [...] 04/12/2025 2:20 PM EDT Office Visit [facility] [address] [address] Sophie Delarosa NP [address] [facility] [place] [address] documented as of this encounter Procedures Procedure Name Priority Date/Time Associated Diagnosis Comments XR KNEE 3 VIEWS LEFT 03/02/2024 7:09 AM EDT documented in this encounter Results * XR knee 3 views left (03/02/2024 7:09 AM EDT) Anatomical Region Laterality Modality Lower Extremities, Knee Left Radiogra [facility] 03/02/2024 7:09 AM EDT Narrative 03/02/2024 7:11 AM EDT The [address] [address] XRay Report Signed Patient: MARTI MAHAJAN MR#: [id number] : 1955 Acct:[id number] Age/Sex: 68 / M ADM Date: 03/01/24 Loc: RAD Attending Dr: Shaikh Breanna Foster Ordering Physician: Shaikh Kristin Carlos Date of Service: 03/01/24 Procedure(s): XR knee LT 3V Accession Number(s): [id number] cc: Shaikh Kristin Carlos The [place] [id number] Patient Name: MARTI MAHAJAN MRN: [id number] date: 1955 Sex: M Assigned Patient Location: RAD Current Patient Location: Accession/Order Number: [id number] Exam Date: 03/01/2024 16:35 Report Date: 03/02/2024 07:09 At the request of: SHAIKH BREANNA Procedure: XR knee LT 3V PROCEDURE: XR knee LT 3V COMPARISON: None. HISTORY: Chronic Left knee pain M25.512 FINDINGS: BONES:No acute fracture or dislocation. Severe osteoarthritis of the anterior compartment with zqjh-od-tnnv articulation and marginal osteophyte formation SOFT TISSUES:Negative. No visible soft tissue swelling. EFFUSION:None visible. OTHER: Negative. XR/XR knee LT 3V IMPRESSION: Severe patellofemoral osteoarthritis Electronically authenticated by: MELISSA OVIEDO Date: 03/02/2024 07:09 Dictated By: Melissa Oviedo M.D. Signed By: 03/02/24 0711 DD/ 0709 TD/TT: Manufacturing Inspector: Procedure Note Radiology, Radiologist, MD - 03/02/[address] [address] XRay Report Signed Patient: MARTI MAHAJAN LMR#: [id number] : 1955cct:[id number] Age/Sex: 68 / MADM Date: 03/01/24 Loc: RAD Attending Dr: Shaikh Breanna Foster Ordering Physician: Shaikh Kristin Carlos Date of Service: 03/01/24 Procedure(s): XR knee LT 3V Accession Number(s): [id number] cc: Shaikh Kristin Carlos The [place] [address] Patient Name: MARTI MAHAJAN MRN: [id number] date: 1955 Sex: M Assigned Patient Location: [facility] Current Patient Location: Accession/Order Number: [id number] Exam Date: 03/01/2024 16:35 Report Date: 03/02/2024 07:09 At the request of: SHAIKH BREANNA Procedure: XR knee LT 3V PROCEDURE: XR knee LT 3V COMPARISON: None. HISTORY: Chronic Left knee pain M25.512 FINDINGS: BONES:No acute fracture or dislocation. Severe osteoarthritis of theanterior compartment with mbbm-rt-ycra articulation and marginal osteophyteformation SOFT TISSUES:Negative. No visible soft tissue swelling. EFFUSION:None visible. OTHER: Negative. XR/XR knee LT 3V IMPRESSION: Severe patellofemoral osteoarthritis Electronically authenticated by: MELISSA OVIEDO Date: 03/02/2024 07:09 Dictated By: Melissa Oviedo M.D. Signed By:03/02/24 0711 DD/ 0709 TD/TT: Manufacturing Inspector: Shaikh Breanna WEAVER IMG XR PROCEDURES Final Result documented in this encounter Visit Diagnoses Not on filedocumented in this encounter Care Teams Bow Maker Relationship Specialty Start Date End Date Shaikh Carlos MD [address] [place] [address] PCP - General Internal Medicine 02/25/24 06/01/24 Shen Preez MD [address] [place] [address] PCP - General Family Medicine 06/02/24 Debbie Chavez NP [address] [place] [address] Nurse Practitioner Family Medicine 06/02/24 documented as of this encounter
--- OUTSIDE RECORDS SUMMARY | 2025-03-14 07:10 | XMS_ITS | Encounter Summary ---
Author Organization [facility] s [facility] Address [id number] [address] [place] [address] Care Team Providers Care Lens Blocker Name Role Phone Shaikh MEG Carlos Primary Care Provider [phone] Encounter Details Date Type Department Care Team (Late st Contact Info) Description 11/06/2021 Orders Only [facility] [address] [place] [address] Oralia Sevilla RN Preop testing (Primary Dx); Precordial pain; Shortness of breath Social History Tobacco Use Types Packs/Day Years [...] have Coronavirus / COVID-19? No / Unsure 11/01/2021 8:16 AM EST documented as of this encounter Plan of Treatment Not on file documented as of this encounter Visit Diagnoses Diagnosis Preop testing- Primary Unspecified pre-operative examination Precordial pain Shortness of breath documented in this encounter Additional Health Concerns Infection Onset Date Last Indicated Resolved Time COVID-19 Rule-Out 11/19/2021 11/19/2021 11/19/2021 9:42 PM EDT documented as of this encounter Care Teams Lens Blocker Relationship Specialty Start Date End Date Shaikh Carlos MD PCP - General Internal Medicine 02/27/23 documented as of this encounter
--- OUTSIDE RECORDS SUMMARY | 2025-03-14 07:10 | XMS_ITS | Encounter Summary ---
Author Organization [facility] Address [address] [place] [address] Care Team Providers Care Waterproofing Supervisor Name Role Phone Shaikh MEG Carlos Primary Care Provider [phone] Shen Perez MD Primary Care Provider [phone] Debbie Chavez NP Unavailable [phone] Encounter Details Date Type Department Care Team (Late st Contact Info) Description 03/02/2024 Clinisync Result Encounter [facility] External Department Unsolicited Shaikh Carlos MD [address] [place] [address] Social History Tobacco Use Types Packs/Day Years [...] How often do you attend chur or zoroastrian services? More than 4 times per year 08/25/2023 Do you belong to any clubs o r organizations such as roman catholic groups, unions, fraternal or athletic groups, or [...] care, and heating? Patient declined 08/25/2023 [facility] - Occupational [...] EDT Office Visit [facility] [address] [place] [address] Sophie Delarosa NP [address] [place] [address] documented as of this encounter Procedures Procedure Name Priority Date/Time Associated Diagnosis Comments XR SHOULDER 2+ VIEWS LEFT 03/02/2024 7:10 AM EDT documented in this encounter Results * XR shoulder 2+ views left (03/02/2024 7:10 AM EDT) Anatomical Region Laterality Modality Upper Extremities, Shoulder Left Radi ographic Imaging 03/02/2024 7:10 AM EDT Narrative 03/02/2024 7:13 AM EDT The [address] [address] XRay Report Signed Patient: MARTI MAHAJAN MR#: [id number] : 1955 Acct:[id number] Age/Sex: 68 / M ADM Date: 03/01/24 Loc: RAD Attending Dr: Shaikh Breanna Foster Ordering Physician: Shaikh Kristin Carlos Date of Service: 03/01/24 Procedure(s): XR shoulder LT min 2V Accession Number(s): [id number] cc: Shaikh Kristin Carlos The [place] [address] Patient Name: MARTI MAHAJAN MRN: [facility]:[id number] date: 1955 Sex: M Assigned Patient Location: RAD Current Patient Location: RAD Accession/Order Number: [id number] Exam Date: 03/01/2024 16:35 Report Date: 03/02/2024 [...] Signed By: 03/02/24 0713 DD/ 0710 TD/TT: Slip Bridge Operator: Procedure Note Radiology, Radiologist, MD - 03/02/2024 [place] [address] XRay Report Signed Patient: MARTI MAHAJAN LMR#: [id number] : 1955cct:[id number] Age/Sex: 68 / MADM Date: 03/01/24 Loc: RAD Attending Dr: Shaikh Breanna Foster Ordering Physician: Shaikh Kristin Carlos Date of Service: 03/01/24 Procedure(s): XR shoulder LT min 2V Accession Number(s): [id number] cc: Shaikh Kristin Carlos The [place] [id number] Patient Name: MARTI MAHAJAN MRN: [id number] date: 1955 Sex: M Assigned Patient Location: RAD Current Patient Location: RAD Accession/Order Number: [id number] Exam Date: 03/01/2024 16:35 Report Date: 03/02/2024 [...] Melissa Oviedo M.D. Signed By:03/02/24 0713 DD/ TD/TT: Slip Bridge Operator: Shaikh Breanna WEAVER IMG XR PROCEDURES Final Result documented in this encounter Visit Diagnoses Not on filedocumented in this encounter Care Teams Waterproofing Supervisor Relationship Specialty Start Date End Date Shaikh Carlos MD [address] [place] [address] PCP - General Internal Medicine 02/25/24 06/01/24 Shen Perez MD [address] [place] [address] PCP - General Family Medicine 06/02/24 Debbie Chavez NP [address] [place] [address] Nurse Practitioner Family Medicine 06/02/24 documented as of this encounter
--- OUTSIDE RECORDS SUMMARY | 2025-03-14 07:10 | XMS_ITS | Encounter Summary ---
Author Organization [facility] Address [address] [place] [address] Care Team Providers Care Trouble Shooting Mechanic Name Role Phone Shaikh MEG Carlos Primary Care Provider [phone] Shaikh MEG Carlos Primary Care Provider [phone] Shen Perez MD Primary Care Provider [phone] Debbie Chavez BEAUTY ARTIST Unavailable [phone] Encounter Details Date Type Department Care Team (Late st Contact Info) Description 09/17/2023 Orders Only [facility] [address] [place] [address] Shaikh Carlos MD [address] [place] [address] Social History Tobacco Use Types Packs/Day Years [...] How often do you attend chur or temple services? More than 4 times per year 08/25/2023 Do you belong to any clubs o r organizations such as caodaism groups, unions, fraternal or athletic groups, or [...] and heating? Patient declined [facility] Questionnaire Answer Date [...] place to sleep or slept in a fci (including now)? No 08/25/2023 Sex and Gender [...] Office Visit [facility] [address] [place] [address] Sophie Delarosa NP [address] [place] [address] documented as of this encounter Procedures Procedure [...] on filedocumented in this encounter Care Teams Trouble Shooting Mechanic Relationship Specialty Start Date End Date Shaikh Carlos MD PCP - General Internal Medicine 09/08/22 02/24/24 Shaikh Carlos MD [address] [place] [address] PCP - General Internal Medicine 02/25/24 06/01/24 Shen Perez MD [address] [place] [address] PCP - General Family Medicine 06/02/24 Debbie Chavez NP [address] [place] [address] Nurse Practitioner Family Medicine 06/02/24 documented as of this encounter
--- OUTSIDE RECORDS SUMMARY | 2025-03-14 07:10 | XMS_ITS | Clinical Summary ---
Author Organization [facility] Address [id number] [address] [place] [address] Care Team Providers Care Coal Gasification Technician Name Role Phone Shaikh MEG Carlos Primary Care Provider [phone] Allergies No known active allergies Medications clopidogreL [...] Devices Not on file Insurance Care Teams Coal Gasification Technician Relationship Specialty Start Date End Date Shaikh Carlos MD PCP - General Internal Medicine 02/27/23
--- OUTSIDE RECORDS SUMMARY | 2025-03-14 07:10 | XMS_ITS | Encounter Summary ---
Author Organization [facility] Address [address] [place] [address] Care Team Providers Care Er Nurse Name Role Phone Shaikh MEG Carlos Primary Care Provider [phone] Shaikh MEG Carlos Primary Care Provider [phone] Shen Preez MD Primary Care Provider [phone] Debbie Chavez ECONOMICS PROFESSOR Unavailable Reason for Visit * Reason Comments Med Refill Encounter Details Date Type Department Care Team (Late st Contact Info) Description [facility]/17[facility] [address] [place] [address] Shaikh Carlos MD [address] [place] [address] Hyperlipidemia, unspecified hyperlipidemia type (Primary Dx) Social History Tobacco Use Types [...] How often do you attend chur or buddhism services? More than 4 times per year [...] medical care, and heating? Patient declined 08/25/2023 [facility] - Occupational [...] 2:20 PM EDT Office Visit [facility] [address] [place] [address] Sophie Delarosa NP [address] [place] [address] documented as of this encounter Visit Diagnoses Diagnosis Hyperlipidemia, unspecified hyperlipidemia type- Primary documented in this encounter Care Teams Er Nurse Relationship Specialty Start Date End Date Shaikh Carlos MD PCP - General Internal Medicine 09/08/22 02/24/24 Shaikh Carlos MD [address] [place] [address] PCP - General Internal Medicine 02/25/24 06/01/24 Shen Perez MD [address] [place] [address] PCP - General Family Medicine 06/02/24 Debbie Chavez NP [address] [place] [address] Nurse Practitioner Family Medicine 06/02/24 documented as of this encounter
--- NOTE | 2025-03-14 07:34 | ECG_ITS ---
The [facility] Test Date: 2025-03-14 Pat Name: MARTI EDDIE Department: Room: - Gender: Male Heel Seat Trimmer: : 1955 Requested By: DREW PÉREZ Order Number: [id number] Reading MD: MARTI MIKE M.D. Measurements Intervals [place] Rate: 76 P: 153 ID: [id number] QRS: -21 QRSD: 115 T: 150 QT: 397 QTc: 448 Interpretive Statements SINUS RHYTHM WITH OCCASIONAL SUPRAVENTRICULAR PREMATURE COMPLEXES LOW QRS VOLTAGE IN EXTREMITY LEADS [QRS DEFLECTION < 0.5 mV IN LIMB LEADS] INFERIOR MYOCARDIAL INFARCTION [40+ ms Q WAVE AND/OR ST/T ABNORMALITY IN II/aVF], PROBABLY OLD Abnormal ECG Compared to ECG 12/31/2019 18:30:56 Low QRS voltage now present Myocardial infarct finding now present Electronically Signed On 03-14-2025 20:30:54 EDT by MARTI MIKE M.D.
--- NOTE | 2025-03-14 09:04 | PM.PRESUREVA ---
History of Present Illness History of Present Illness Chief complaint: Left Hydrocele Narrative: Patient presents for presurgical testing. Please see HPI from Dr. Hirsch dated March 07, 2025. Review of Systems ROS Narrative Please see ROS from Dr. Hirsch dated March 07, 2025. [facility] Medical History (Updated 03/14/25 @ 09:06 by Cydney Harrington NP) Erectile dysfunction �N52.9 - Male erectile dysfunction, unspecified (ICD-10) BPH with obstruction/lower urinary tract symptoms �N40.1 - Benign prostatic hyperplasia with lower urinary tract symptoms (ICD-10) �N13.8 - Other obstructive and reflux uropathy (ICD-10) Hip pain �M25.559 - Pain in unspecified hip (ICD-10) Arthritis �M19.90 - Unspecified osteoarthritis, unspecified site (ICD-10) Anemia �D64.9 - Anemia, unspecified (ICD-10) MAR on CPAP �G47.33 - Obstructive sleep apnea (adult) (pediatric) (ICD-10) Sleep apnea �G47.30 - Sleep apnea, unspecified (ICD-10) Transient ischemic attack �G45.9 - Transient cerebral ischemic attack, unspecified (ICD-10) Hydrocele �N43.3 - Hydrocele, unspecified (ICD-10) Hypertension �I10 - Essential (primary) hypertension (ICD-10) High cholesterol �E78.00 - Pure hypercholesterolemia, unspecified (ICD-10) Prediabetes �R73.03 - Prediabetes (ICD-10) Surgical History (Updated 03/14/25 @ 08:37 by Cydney Harrington NP) History of colonoscopy �Z98.890 - Other specified postprocedural states (ICD-10) Family History (Updated 03/14/25 @ 08:37 by Cydney Harrington NP) Other Family history of diabetes mellitus Family history of heart disease Family history of hypertension Family history of myocardial infarction Social History (Updated 03/14/25 @ 08:32 by Cydney Harrington NP) Within the past year, how often did you have a drink containing alcohol: never Score interpretation: A score less than 4 is consistent with normal alcohol consumption. Smoking status: Never smoker Non-prescribed substance use: denies use Previous occupational history: [employer] Highest level of school completed/degree received: high school graduate Meds Home Medications and Allergies Home Medications �Medication �Instructions �Recorded �Confirmed �Type aspirin 81 mg tablet,delayed 81 mg PO DAILY 03/14/25 03/14/25 History release atorvastatin 20 mg tablet 20 mg PO DAILY 03/14/25 03/14/25 History ferrous sulfate 325 mg (65 mg 325 mg PO DAILY 03/14/25 03/14/25 History iron) tablet (FeroSul) meloxicam 15 mg tablet 15 mg PO DAILY 03/14/25 03/14/25 History metformin 500 mg tablet 500 mg PO BID 03/14/25 03/14/25 History metoprolol succinate 50 mg 50 mg PO QPM 03/14/25 03/14/25 History tablet,extended release 24 hr tadalafil 10 mg tablet (Cialis) 10 mg PO DAILY PRN sexual activity 03/14/25 03/14/25 History tamsulosin 0.4 mg capsule 0.4 mg PO Q24H 03/14/25 03/14/25 History Allergies Allergy/AdvReac Type Severity Reaction Status Date / Time No Known Drug Allergies Allergy Verified 03/14/25 08:30 Exam Narrative Exam Narrative: Constitutional: Awake, alert, comfortable, well-appearing, nontoxic, interactive, vital signs as charted Head: Normocephalic, atraumatic Neck: Supple, normal appearance, normal range of motion, no meningeal signs, no lymphadenopathy Respiratory: No respiratory distress, breath sounds clear Cardiovascular: Regular rate and rhythm, strong and regular heart tones Abdomen: Nontender, normal bowel sounds, soft, no CVA tenderness Musculoskeletal: Normal gait, no swelling or edema Skin: No rashes or induration, no lesions, only visible skin inspected Neuro: No neurological deficits, normal sensation Psychiatric: Oriented �3, normal affect Assessment and Plan Assessment and Plan (1) Hydrocele: Plan Left hydrocelectomy scheduled with Dr. Hirsch March 17, 2025
[2025-03-14 09:13] LABS: Hematocrit 41.8 % (42.0-54.0); Hemoglobin 13.9 g/dL (14.0-18.0); Immature Granulocytes Abs Auto 0.03 10^3/uL (0.00-0.03); Immature Granulocytes Pct Auto 0.3 % (0.0-0.5); Lymphocytes Absolute Auto 0.9 10^3/uL (1.2-3.8); Mean Corpuscular HGB Conc 33.3 g/dL (29.9-35.2); Mean Corpuscular Hemoglobin 29.0 pg (25.9-34.0); Mean Corpuscular Volume 87.3 fL (80.0-94.0); Platelet Count 266 10^3/uL (150-450); Red Blood Count 4.79 10^6/uL (4.70-6.10); White Blood Count 10.9 10^3/uL (4.0-11.0)
[2025-03-14 09:18] LABS: Anion Gap 11.7; Blood Urea Nitrogen 18.0 mg/dL (7.0-18.0); Calcium 9.1 mg/dL (8.5-10.1); Carbon Dioxide 30.7 mmol/L (21.0-32.0); Chloride 106 mmol/L (98-107); Estimated GFR (African America >60 (>=60 mL/min/1.73m^2); Estimated GFR (Non-African Ame >60 (>=60 mL/min/1.73m^2); Glucose 127 mg/dL (74-106); Potassium 4.4 mmol/L (3.5-5.1); Sodium 144 mmol/L (136-145)
[2025-03-14 09:27] LABS: INR 0.99; Partial Thromboplastin Time 25.4 sec (22.3-36.2); Prothrombin Time 10.5 sec (9.0-11.6)
== END 2025-03-14 07:08 | disposition home or self-care (01) ==
LOC: PST 07:08
PROVIDERS: PCP Nurse Practitioner; Visit Provider Urology
DX: Z01.810 Encounter for preprocedural cardiovascular examination (principal); Z01.812 Encounter for preprocedural laboratory examination; Z01.818 Encounter for other preprocedural examination; N43.3 Hydrocele, unspecified; E78.5 Hyperlipidemia, unspecified
CPT/HCPCS: 36415; 80048; 85025; 85610; 85730; 93005; G0463

== ENCOUNTER 2025-03-24 15:43 | Outpatient (OUT) | payer OTHER, SELFPAY ==
--- OUTSIDE RECORDS SUMMARY | 2025-03-18 11:00 | XMS_ITS | Encounter Summary ---
Author Organization [facility] Address [address] [place] [place] [address] Care Team Providers Care Hand Profiler Name Role Phone Sophie Delarosa MD Primary Care Provider [phone] Reason for Referral * Imaging (Routine) - Pending Review Specialty Diagnoses / Procedures Referred By Trip t Referred To Contact Cardiology Diagnoses Abnormal EKG Preoperative evaluation to rule out surgical contraindication PVC (premature ventricular contraction) Procedures Complete Echo (TTE) w/wo Imaging Agent, Strain, 3D, Bubble Study Mallory Reyes MD [address] [facility] [address] [place] [address] Phone: tel: fax: Referral ID Status Reason Start Date Expiration Date Visits Requested Visits Authorized [id number] Pending Review Perform Procedure 03/18/2025 03/18/2026 1 1 Reason for Visit * Reason Comments Abnormal ECG Performed a few days ago, with labs Pre-op Exam Had stress test and echo at [facility] in 2021 s/p Covid-19 infection. Patient denies chest pain, SOB, and palpitations. He will be scheduled for hydrocele procedure with Dr. Hirsch. Hypertension Hyperlipidemia Transient Ischemic Attack Hx of TIA, for antonio on Plavix. Encounter Details Date Type Department Care Team (Latest Contact Info) Description 03/18/2025 11:00 AM EDT Office Visit [facility] [address] [place] [address] Mallory Reyes MD [address] [facility] [address] [place] [address] Preoperative evaluation to rule out surgical contraindication (Primary Dx); Abnormal EKG; PVC (premature ventricular contraction); Primary hypertension; TIA (transient ischemic attack); Type 2 diabetes mellitus without complication, without long-term current use of insulin ([facility]); Obesity (BMI 30-39.9); Prediabetes; Pure hypercholesterolemia Social History Tobacco Use Types Packs/Day Years Used Date Smoking Tobacco: Never Smokeless Tobacco: Never Tobacco Cessation:Counseling Given: Not Answered Alcohol Use Standard Drinks/Week Comments Not Currently 0 (1 standard drink = 0.6 oz pur e alcohol) Sex and Gender Information Value Date Recorded Sex Assigned at Not on file Legal Sex Male 1:59 PM EDT Gender Identity Not on file Sexual Orientation Not on file documented as of this encounter Last Filed Vital Signs Vital Sign Reading Time Taken Comments Blood Pressure 144/80 03/18/2025 11:07 AM EDT Pulse 81 03/18/2025 11:07 AM EDT Temperature - - Respiratory Rate - - Oxygen Saturation 96% 03/18/2025 11:07 AM EDT Inhaled Oxygen Concentration - - Weight 117 kg (257 lb) 03/18/2025 11:07 AM EDT Height 193 cm (6' 4 ) 03/18/2025 11:07 AM EDT Body Mass Index 31.28 03/18/2025 11:07 AM EDT documented in this encounter Progress Notes * Mallory Reyes MD - 03/18/2025 11:00 AM EDT Images from the original note were not included. [place] [facility] Note Reason for cardiology consult: Preop clearance due to abnormal EKG Chief Complaint: No cardiac complaint HPI: Avinash Mahajan is a 69 y.o. male without prior cardiac history, he has history of hypertension, hyperlipidemia, diabetes mellitus, TIA, sleep apnea on CPAP, and benign prostate hypertrophy He is going to have a hydrocele surgery. As a preop evaluation he had an EKG which was abnormal showing evidence of old inferior infarct therefore he was referred for cardiology evaluation. He states that he is physically active and his job involves a lot of physical activities. He deniesany chest pain or shortness of breath at rest or with exertion. Denies orthopnea or paroxysmal nocturnal dyspnea or dizziness or palpitations. He denies syncope or near syncope. He denies legs edema or leg discomfort on exertion. He never been a smoker. He denies alcohol or illicit drugs Cardiology ROS: GENERAL: Denies fever, chills, night sweats, weight loss. HEENT: Denies changes in vision, photophobia, changes in hearing, epistaxis, oral bleeding. CARDIOVASCULAR: Denies chest pain, exertional dyspnea, orthopnea/PND, lower extremity edema, palpitations, lightheadedness/dizziness. RESPIRATORY: Denies SOB, coughing, wheezing GI: Denies abdominal pain, nausea/vomiting, heartburn, melena/hematochezia. RENAL: Denies dysuria, hematuria, flank pain. MSK: Denies muscle weakness/pain, arthralgias/joint pain. NEUROLOGIC: Denies LOC, weakness, numbness, headaches. SKIN: Denies abnormal rashes or bleeding. PSYCH: Denies significant anxiety, depression, sleep disturbances. Past Medical History He has a past medical history of Abnormal ECG, Diabetes mellitus ([facility]), Hyperlipidemia, Hypertension, and Stroke ([facility]). Surgical History He has no past surgical history on file. Social History He reports that he has never smoked. He has never used smokeless tobacco. He reports that he does not currently use alcohol. No history on file for drug use. Family History Family History[1] Allergies Patient has no known allergies. Medications Current Medications[2] Last Recorded Vitals Visit Vitals BP 144/80 (BP Location: Right arm, Patient Position: Sitting) Pulse 81 Ht 1.93 m (6' 4 ) Wt 117 kg (257 lb) SpO2 96% BMI 31.28 kg/m² Smoking Status Never BSA 2.5 m² Physical Examination: GENERAL: alert and oriented x3, well developed, in no acute distress. HEAD: atraumatic, normocephalic. EYES: MICHAELA, EOMI. NECK: trachea midline, no JVD present, no carotid bruits present. CARDIAC: S1, S2 present. RRR. No murmur, rubs, or gallops. RESPIRATORY: CTAB, no increased effort of breathing, no rales, rhonchi, or wheezing. ABDOMEN: soft, nontender, nondistended. EXTREMITIES: no lower extremity edema, peripheral pulses are 2+ bilaterally. No rash/skin discoloration present. NEURO: strength/sensation equal and symmetric in bilateral upper and lower extremities. PSYCH: appropriate mood, affect, and judgement. Labs: 03/14/2025 White blood count 10.9, hemoglobin 13.9, hematocrit 41.8, platelets 266 INR 0.99, PTT 25 Sodium 144, potassium 4.4, BUN 18, creatinine 0.69, GFR above 60, glucose 127, calcium 9.1 12/18/2024 HbA1c 5.8% AST 21, ALT 34, alk phos 45, total protein 6.7, albumin 3.6 Triglyceride 29, cholesterol 105, LDL 41, HDL 58 PSA 1.0 Last Images: EKG 03/14/2025 showed normal sinus rhythm with occasional PACs, possible old inferior infarct, T waveabnormalities in lateral leads EKG 09/14/2021 showed sinus rhythm with PACs and PVCs, probable left atrial enlargement, otherwise normal EKG EKG 09/14/2021 showed normal sinus rhythm with PVCs, possible left atrial enlargement, otherwise normal EKG Echo 11/01/2021 at [facility] Left Ventricle: Systolic function is normal with an ejection fraction of 55-60%. No significant valvular stenosis or regurgitation. Left Ventricle Left ventricle appears normal in size. There is mild concentric increased wall thickness/hypertrophy. Systolic function is normal with an ejection fraction of 55-60%. No obvious regional wall motion abnormalities. Normal diastolic function is present. Right Ventricle Right ventricular size appears normal. Systolic function is normal. Left Atrium Left atrium is normal in size. The left atrial volume index is 31.3 mL/m2. Right Atrium Right atrium is mildly dilated. The right atrial area is 20.0 cm2. IVC/SVC The right atrial pressure is estimated at 3 mmHg. IVC appears normal. Mitral Valve The leaflets are mildly thickened. There is mild posterior annular calcification. There is trace regurgitation. There is no evidence of mitral valve stenosis. Tricuspid Valve Tricuspid valve appears to be normal. There is trace to mild regurgitation. There is no evidence oftricuspid valve stenosis. Insufficient regurgitant jet to assess right ventricular systolic pressure. However, no two-dimensional echo evidence of pulmonary hypertension appears present. RVSP is based on RA pressure of 3 mmHg. Aortic Valve The aortic valve was not well visualized. There is no regurgitation or stenosis. Pulmonic Valve The pulmonic valve was not well visualized. There is no evidence of pulmonic valve stenosis. Ascending Aorta The aortic root is normal in size. Pericardium There is no pericardial effusion. Coronary CT angiogram 02/02/2022 at [facility] Calcium score: [address] Angiogram: The overall quality of the CT angiographic examination is excellent. Coronary Artery Angiogram Findings: Stenoses are reported as maximum percentage diameter stenosis. Stenosis grading is reported using the following scheme: Normal: no stenosis Mild: 1-49% stenosis Moderate: 50-70% stenosis Severe: >70% stenosis Occluded The coronary artery system is right dominant with normal origins. The LM has no stenosis with no plaque. The proximal LAD and first diagonal branch (D1) have no stenosis with no plaque. The mid-distal LAD, D2 and D3 branches have no stenosis with no plaque. The LCx and its obtuse marginal (OM) branches have no stenosis with no plaque The RCA and acute marginal right posterior descending artery (RPDA)/right posterolateral branches have no stenosis have no stenosis with no plaque. Coronary CTA Impression No coronary artery stenosis or plaque. Treadmill nuclear stress test 11/22/2021 at [facility] Overall, the patient's functional capacity was below average. The stress ECG was negative. The calculated Thomson Treadmill Score of 6 represents a low risk only with regards to the exercise findings. Stress Function Comments: Post-stress ejection fraction is 70 %. Perfusion Comments: Unfortunately, there is motion artifact and significant subdiaphragmatic attenuation affecting interpretation of the inferior wall. There appears to be a partially reversible defect involving the inferior wall, but may represent artifact related to subdiaphragmatic attenuation. Test is considered low to intermediate risk. Assessment and Plan: Preop clearance for hydrocele surgery Abnormal EKG showing possibility of old inferior infarct, no symptoms suggestive of angina, but EKGis different from prior EKGs History of normal coronary CT angiogram in 2021 due to nondiagnostic stress test at the time History of TIA He is on aspirin and atorvastatin Hypertension, he is on Toprol-XL. Blood pressure mildly elevated today Hyperlipidemia, he is on atorvastatin, well-controlled Type 2 diabetes mellitus, he is on metformin, appears to be well-controlled Obesity, BMI 31.3 kg/m² Obstructive sleep apnea, on CPAP for 10 years Benign prostate hypertrophy Plan: Continue current medications including aspirin, atorvastatin, and Toprol-XL I will obtain an echocardiographic study to evaluate cardiac function and presence of wall motion abnormalities, if it is normal I will clear him for surgery I asked him to check his blood pressure twice daily and bring the log when he comes for the echo todetermine if I need to adjust his hypertension medications Will contact the patient with the echo result and with the need for further workup or follow-up Mallory Reyes MD,[facility] [1] Family History Problem Relation Name Age of Onset Heart attack Father Coronary artery disease Father Other (CABG) Father Coronary artery disease Maternal Grandfather Other (pacemaker) Maternal Grandfather [2] Current Outpatient Medications: aspirin 81 mg EC tablet, Take 81 mg by mouth in the morning., Disp: , Rfl: atorvastatin (Lipitor) 20 mg tablet, Take 20 mg by mouth in the morning., Disp: , Rfl: dutasteride (Avodart) 0.5 mg capsule, Take 0.5 mg by mouth in the morning., Disp: , Rfl: FeroSuL 325 mg (65 mg iron) tablet, TAKE 1 TABLET BY MOUTH IN THE MORNING WITH MEALS, Disp: , Rfl: meloxicam (Mobic) 15 mg tablet, Take 15 mg by mouth in the morning., Disp: , Rfl: metFORMIN (Glucophage) 500 mg tablet, Take 500 mg by mouth with breakfast and with evening meal., Disp: , Rfl: metoprolol succinate XL (Toprol-XL) 50 mg 24 hr tablet, Take 50 mg by mouth in the morning., Disp: , Rfl: tamsulosin (Flomax) 0.4 mg 24 hr capsule, Take 0.4 mg by mouth twice a day., Disp: , Rfl: documented in this encounter Plan of Treatment Scheduled Orders Name Type Priority Associated Diagnoses Orde r Schedule Complete Echo (TTE) w/wo Imaging Agent, Strain, 3D, Bubble Study Echocardiography Routine Abnormal EKG Preoperative evaluation to rule out surgical contraindication PVC (premature ventricular contraction) Expected: 03/18/2025 (Approximate), Expires: 03/18/2027 documented as of this encounter Visit Diagnoses Diagnosis Preoperative evaluation to rule out surgical contraindication- Primary Abnormal EKG Nonspecific abnormal electrocardiogram (ECG) (EKG) PVC (premature ventricular contraction) Other premature beats Primary hypertension Unspecified essential hypertension TIA (transient ischemic attack) Unspecified transient cerebral ischemia Type 2 diabetes mellitus without complication, without long-term current use of insulin ([facility]) Obesity (BMI 30-39.9) Prediabetes Other abnormal glucose Pure hypercholesterolemia documented in this encounter Care Teams Hand Profiler Relationship Specialty Start Date End Date Sophie Delarosa MD [address] [place] [address] PCP - General Nurse Practitioner 03/16/25 documented as of this encounter
--- OUTSIDE RECORDS SUMMARY | 2025-03-24 15:45 | XMS_ITS | Encounter Summary ---
Author Organization [facility] Address [address] [place] [address] Care Team Providers Care Hot Dip Tinning Supervisor Name Role Phone Shaikh MEG Carlos Primary Care Provider [phone] Shaikh MEG Carlos Primary Care Provider [phone] Shen Perez MD Primary Care Provider [phone] Debbie Chavez NP Unavailable [phone] Encounter Details Date Type Department Care Team (Late st Contact Info) Description 09/19/2023 Abstract [facility] [address] [place] [address] Barbara Messer NP Social History Tobacco Use [...] often do you attend chur ch or jewish services? More than 4 times per year 08/25/2023 Do you belong to any clubs o r organizations such as temple groups, unions, fraternal or athletic groups, or [...] medical care, and heating? Patient declined 08/25/2023 [facility] - Occupational [...] place to sleep or slept in a half-way (including now)? No 08/25/2023 Sex and Gender [...] Office Visit [facility] [address] [place] [address] Sophie Delarosa NP [address] [place] [address] documented as of this encounter Visit Diagnoses Not on filedocumented in this encounter Care Teams Hot Dip Tinning Supervisor Relationship Specialty Start Date End Date Shaikh Carlos MD PCP - General Internal Medicine 09/08/22 02/24/24 Shaikh Carlos MD [address] [place] [address] PCP - General Internal Medicine 02/25/24 06/01/24 Shen Perez MD [address] [place] [address] PCP - General Family Medicine 06/02/24 Debbie Chavez NP [address] [place] [address] Nurse Practitioner Family Medicine 06/02/24 documented as of this encounter
--- OUTSIDE RECORDS SUMMARY | 2025-03-24 15:46 | XMS_ITS | Encounter Summary ---
Author Organization [facility] Address [address] [place] [address] Care Team Providers Care Data Entry Coordinator Name Role Phone Shaikh MEG Carlos Primary Care Provider [phone] Shaikh MEG Carlos Primary Care Provider [phone] Shen Perez MD Primary Care Provider [phone] Debbie Chavez REFRACTORY BRICKLAYER Unavailable [phone] Reason for Visit * Reason Comments Med Refill Encounter Details Date Type Department Care Team (Late st Contact Info) Description 11/17/2023 [facility] [address] [place] [address] Shaikh Carlos MD [address] [place] [address] Hyperlipidemia, unspecified hyperlipidemia type (Primary Dx) Social [...] How often do you attend chur or tenriism services? More than 4 times per year 08/25/2023 Do you belong to any clubs o r organizations such as mu-ism groups, unions, fraternal or athletic groups, or [...] medical care, and heating? Patient declined 08/25/2023 [facility] - Occupational [...] place to sleep or slept in a usp (including now)? No 08/25/2023 Sex and Gender [...] Visit [facility] [address] [place] [address] Sophie Delarosa NP [address] [place] [address] documented as of this encounter Visit Diagnoses Diagnosis Hyperlipidemia, unspecified hyperlipidemia type- Primary documented in this encounter Care Teams Data Entry Coordinator Relationship Specialty Start Date End Date Shaikh Carlos MD PCP - General Internal Medicine 09/08/22 02/24/24 Shaikh Carlos MD [address] [place] [address] PCP - General Internal Medicine 02/25/24 06/01/24 Shen Perez MD [address] [place] [address] PCP - General Family Medicine 06/02/24 Debbie Chavez NP [address] [place] [address] Nurse Practitioner Family Medicine 06/02/24 documented as of this encounter
--- OUTSIDE RECORDS SUMMARY | 2025-03-24 15:46 | XMS_ITS | Encounter Summary ---
Author Organization [facility] Address [address] [place] [address] Care Team Providers Care Claims Clerk Name Role Phone Shen Perez MD Primary Care Provider [phone] Debbie Chavez NP Unavailable [phone] Encounter Details Date Type Department Care Team (Late st Contact Info) Description 03/14/2025 Clinisync Result Encounter [facility] Department Unsolicited Provider, Generic External Data Social History Tobacco Use Types Packs/Day Years [...] week 08/25/2023 How often do you attend [facility] or gnosticist services? More than 4 times per year 08/25/2023 Do you belong to any clubs o r organizations such as mosque groups, unions, fraternal or athletic groups, or [...] medical care, and heating? Patient declined 08/25/2023 [facility] - Occupational Stress Questionnaire Answer Date Recorded [...] Office Visit [facility] [address] [place] [address] Sophie Delarosa NP [address] [place] [address] documented as of this encounter Procedures Procedure Name Priority Date/Time Associated Diagnosis Comments ECG 12-LEAD 03/14/2025 6:49 AM EDT documented in this encounter Results * ECG 12-LEAD (03/14/2025 6:49 AM EDT) Anatomical Region Laterality Modality Other 03/14/2025 6:49 AM EDT Narrative 03/14/2025 8:31 PM EDT The [address] [address] Electrocardiograph Report Signed Patient: MARTI MAHAJAN MR#: [id number] : 1955 Acct:[id number] Age/Sex: 69 / M ADM Date: 03/14/25 Loc: PST Attending Dr: Drew Pérez M.D. Ordering Physician: Drew Pérez M.D. Date of Service: 03/14/25 Procedure(s): ECG 12 lead Accession Number(s): [id number] cc: The [facility] Test Date: 2025-03-14 Pat Name: MARTI MAHAJAN Department: Room: - Gender: Male Underground Electrician: : 1955 Requested By: DREW PÉREZ Order Number: [id number] Reading MD: MARTI MIKE M.D. Measurements Intervals [place] Rate: 76 P: 153 CA: 195 QRS: -21 QRSD: 115 T: 150 QT: 397 QTc: 448 Interpretive Statements SINUS RHYTHM WITH OCCASIONAL SUPRAVENTRICULAR PREMATURE COMPLEXES LOW QRS VOLTAGE IN EXTREMITY LEADS [QRS DEFLECTION < 0.5 mV IN LIMB LEADS] INFERIOR MYOCARDIAL INFARCTION [40+ ms Q WAVE AND/OR ST/T ABNORMALITY IN II/aVF], PROBABLY OLD Abnormal ECG Compared to ECG 12/31/2019 18:30:56 Low QRS voltage now present Myocardial infarct finding now present Electronically Signed On 03-14-2025 20:30:54 EDT by MARTI MIKE M.D. Dictated By: MARTI MIKE Signed By: 03/14/252030 DD/ 8 TD/TT: Fruit I Farmworker: Procedure Note Radiology, Radiologist, MD - 03/14/2025 [place] [address] Electrocardiograph Report Signed Patient: MARTI MAHAJAN LMR#: [id number] : 7Acct:[id number] Age/Sex: 69 / MADM Date: 03/14/25 Loc: PST Attending Dr: Drew Pérez M.D. Ordering Physician: Drew Pérez M.D. Date of Service: 03/14/25 Procedure(s): ECG 12 lead Accession Number(s): [id number] cc: The [facility] Test Date: 2025-03-14 Pat Name: MARTI MAHAJAN Department: Room: - Gender: Male Underground Electrician: : 1955 Requested By: DREW PÉREZ Order Number: [id number] Reading MD: MARTI MIKE M.D. Measurements Intervals [place] Rate: 76 P: 153 CA: 195 QRS: -21 QRSD: 115 T: 150 QT: 397 QTc: 448 Interpretive Statements SINUS RHYTHM WITH OCCASIONAL SUPRAVENTRICULAR PREMATURE COMPLEXES LOW QRS VOLTAGE IN EXTREMITY LEADS [QRS DEFLECTION < 0.5 mV IN LIMB LEADS] INFERIOR MYOCARDIAL INFARCTION [40+ ms Q WAVE AND/OR ST/T ABNORMALITY IN II/aVF], PROBABLY OLD Abnormal ECG Compared to ECG 12/31/2019 18:30:56 Low QRS voltage now present Myocardial infarct finding now present Electronically Signed On 03-14-2025 20:30:54 EDT by MARTI MIKE M.D. Dictated By: MARTI MIKE Signed By:03/14/252030 DD/ 8 TD/TT: Fruit I Farmworker: us Generic External Data Provider [facility] Final Result documented in this encounter Visit Diagnoses Not on filedocumented in this encounter Care Teams Claims Clerk Relationship Specialty Start Date End Date Shen Perez MD [address] [place] [address] PCP - General Family Medicine 06/02/24 Debbie Chavez NP [address] [place] [address] Nurse Practitioner Family Medicine 06/02/24 documented as of this encounter
--- OUTSIDE RECORDS SUMMARY | 2025-03-24 15:46 | XMS_ITS | Encounter Summary ---
Author Organization [facility] Address [address] [place] [address] Care Team Providers Care Grain Roaster Name Role Phone Shaikh MEG Carlos Primary Care Provider [phone] Shaikh MEG Carlos Primary Care Provider [phone] Shen Perez MD Primary Care Provider [phone] Debbie Chavez SECONDARY ENGLISH TEACHER Unavailable [phone] Encounter Details Date Type Department Care Team (Late st Contact Info) Description 09/24/2023 Orders Only [facility] [address] [place] [address] Shaikh Carlos MD [address] [place] [address] Social History Tobacco Use Types Packs/Day Years [...] How often do you attend chur or episcopalian services? More than 4 times per year 08/25/2023 Do you belong to any clubs o r organizations such as yarsani groups, unions, fraternal or athletic groups, or [...] care, and heating? Patient declined 08/25/2023 [facility] - Occupational Stress Questionnaire Answer [...] place to sleep or slept in a snf (including now)? No 08/25/2023 Sex and Gender [...] Visit [facility] [address] [place] [address] Sophie Delarosa NP [address] [place] [address] documented as of this encounter Procedures Procedure Name Priority Date/Time Associated Diagnosis Comments MISCELLANEOUS LAB TEST Routine 09/04/2023 11:19 AM EST documented in this encounter Results * - Miscellaneous Test (09/04/2023 11:19 AM EST) Shaikh Breanna WEAVER LAB BLOOD ORDERABLES Final Resu lt documented in this encounter Visit Diagnoses Not on filedocumented in this encounter Care Teams Grain Roaster Relationship Specialty Start Date End Date Shaikh Carlos MD PCP - General Internal Medicine 09/08/22 02/24/24 Shaikh Carlos MD [address] [place] [address] PCP - General Internal Medicine 02/25/24 06/01/24 Shen Perez MD [address] [place] [address] PCP - General Family Medicine 06/02/24 Debbie Chavez NP [address] [place] [address] Nurse Practitioner Family Medicine 06/02/24 documented as of this encounter
--- OUTSIDE RECORDS SUMMARY | 2025-03-24 15:46 | XMS_ITS | Encounter Summary ---
Author Organization [facility] Address [address] [place] [address] Care Team Providers Care President Trust Company Name Role Phone Shen Perez MD Primary Care Provider [phone] Debbie Chavez NP Unavailable [phone] Encounter Details Date Type Department Care Team (Late st Contact Info) Description 03/16/2025 Telephone [facility] [address] [place] [address] Sophie Delarosa NP [address] [place] [address] Social History Tobacco Use Types Packs/Day Years [...] any clubs o r organizations such as worship groups, unions, fraternal or athletic groups, or [...] medical care, and heating? Patient declined 08/25/2023 [facility] - Occupational Stress Questionnaire Answer Date [...] place to sleep or slept in a mcfp (including now)? No 08/25/2023 Sex and Gender Information Value Date Recorded Sex Assigned at Not on file Legal Sex Male 12:47 PM EDT Gender Identity Not on file Sexual Orientation Not on file documented as of this encounter Miscellaneous Notes * Telephone Encounter - Sophie Delarosa NP - 03/16/2025 8:07 AM EDT Please contact pt, his EKG was abnormal that he had the other day, however I am wondering if the tracing is not entirely accurate. I would like to repeat an EKG to see if it was a fluke or not. When is his surgery scheduled for? [place] documented in this encounter Plan of Treatment Upcoming Encounters Date Type Department Care Team (Late st Contact Info) Description 04/12/2025 2:20 PM EDT Office Visit [facility] [address] [place] [address] Sophie Delarosa NP [address] [place] [address] documented as of this encounter Visit Diagnoses Not on filedocumented in this encounter Care Teams President Trust Company Relationship Specialty Start Date End Date Shen Perez MD [address] [place] [address] PCP - General Family Medicine 06/02/24 Debbie Chavez NP [address] [place] [address] Nurse Practitioner Family Medicine 06/02/24 documented as of this encounter
--- OUTSIDE RECORDS SUMMARY | 2025-03-24 15:46 | XMS_ITS | Encounter Summary ---
Author Organization [facility] Address [address] [place] [address] Care Team Providers Care Injection Maintenance Technician Name Role Phone Sophie Delarosa MD Primary Care Provider [phone] Encounter Details Date Type Department Care Team (Late st Contact Info) Description 03/18/2025 Orders Only [facility] Heart at [facility] [address] [place] [address] ProviderAlyssa MD [address] [place] [address] Social History Tobacco Use Types Packs/Day Years [...] on file documented as of this encounter Procedures Procedure Name Priority Date/Time Associated Diagnosis Comments ECG 12-LEAD Routine 09/14/2021 2:21 PM EST documented in this encounter Results * ECG 12 lead (09/14/2021 2:21 PM EST) us Historical Provider ECG ORDERABLES Final Res ult documented in this encounter Visit Diagnoses Not on filedocumented in this encounter Care Teams Injection Maintenance Technician Relationship Specialty Start Date End Date Sophie Delarosa MD [address] [place] [address] PCP - General Nurse Practitioner 03/16/25 documented as of this encounter
--- OUTSIDE RECORDS SUMMARY | 2025-03-24 15:46 | XMS_ITS | Clinical Summary ---
Author Organization [employer] Address [facility] [id number] [address] [place] [address] Care Team Providers Care Colored Leather Setter Name Role Phone Shaikh MEG Carlos Primary Care Provider [phone] Allergies No known active allergies Medications clopidogreL [...] Comments Depression Screening 1969 Tobacco Screening 1969 Adult BMI Screening 1975 Fall Risk Screening 2022 COVID-19 Vaccine (2023-2 5 season) 2024 08/15/2023, 07/04/2022, 12/07/2020, Additional history exists Influenza Vaccine 05/09/2025 06/22/2023, , 06/15/2022, Additional history exists DTaP,Tdap and Td Vaccines (2 - Td or Tdap) 06/30/2030 06/30/2020 Zoster (Shingles) Vaccine Completed 2019, 10/11/2019, 12/19/2016 Medical Devices Not on file Insurance Care Teams Colored Leather Setter Relationship Specialty Start Date End Date FawShaikh mandel MD PCP - General Internal Medicine 02/27/23
--- OUTSIDE RECORDS SUMMARY | 2025-03-24 15:46 | XMS_ITS | Encounter Summary ---
Author Organization [facility] Address [address] [place] [address] Care Team Providers Care Construction Estimator Name Role Phone Shaikh MEG Carlos Primary Care Provider [phone] Shaikh MEG Carlos Primary Care Provider [phone] Shen Perez MD Primary Care Provider [phone] Debbie Chavez CATTLE DRIVER Unavailable [phone] Encounter Details Date Type Department Care Team (Late st Contact Info) Description 09/17/2023 Orders Only [facility] [address] [place] [address] Shaikh Carlos MD [address] [place] [address] Social History Tobacco Use Types Packs/Day Years [...] How often do you attend chur or holiness services? More than 4 times per year [...] medical care, and heating? Patient declined [facility] Questionnaire Answer Date [...] place to sleep or slept in a mcc (including now)? No 08/25/2023 Sex and Gender [...] Office Visit [facility] [address] [place] [address] Sophie Delarosa NP [address] [place] [address] documented as of this encounter Procedures Procedure [...] on filedocumented in this encounter Care Teams Construction Estimator Relationship Specialty Start Date End Date Shaikh Carlos MD PCP - General Internal Medicine 09/08/22 02/24/24 Shaikh Carlos MD [address] [place] [address] PCP - General Internal Medicine 02/25/24 06/01/24 Shen Perez MD [address] [place] [address] PCP - General Family Medicine 06/02/24 Debbie Chavez NP [address] [place] [address] Nurse Practitioner Family Medicine 06/02/24 documented as of this encounter
--- OUTSIDE RECORDS SUMMARY | 2025-03-24 15:46 | XMS_ITS | Encounter Summary ---
Author Organization [facility] Address [address] [place] [address] Care Team Providers Care Appointment Clerk Name Role Phone Shen Perez MD Primary Care Provider [phone] Debbie Chavez NP Unavailable [phone] Encounter Details Date Type Department Care Team (Late st Contact Info) Description 03/16/2025 Orders Only [facility] [address] [place] [address] Sophie Delarosa NP [address] [place] [address] Abnormal EKG (Primary Dx) Social History Tobacco Use Types [...] often do you attend chur ch or protestant services? More than 4 times per year 08/25/2023 Do you belong to any clubs o r organizations such as restorationist groups, unions, fraternal or athletic groups, or [...] medical care, and heating? Patient declined 08/25/2023 [facility] of Occupat ional Health - Occupational Stress [...] place to sleep or slept in a custodial (including now)? No 08/25/2023 Sex and Gender [...] Office Visit [facility] [address] [place] [address] Sophie Delarosa NP [address] [place] [address] Scheduled Orders Name Type Priority Associated Diagnoses Orde r Schedule ECG 12 lead ECG Routine Abnormal EKG Expected: 03/16/2025 (Approximate), Expires: 03/16/2026 documented as of this encounter Visit Diagnoses Diagnosis Abnormal EKG- Primary Nonspecific abnormal electrocardiogram (ECG) (EKG) documented in this encounter Care Teams Appointment Clerk Relationship Specialty Start Date End Date Shen Perez MD [address] [place] [address] PCP - General Family Medicine 06/02/24 Debbie Chavez NP [address] [place] [address] Nurse Practitioner Family Medicine 06/02/24 documented as of this encounter
--- OUTSIDE RECORDS SUMMARY | 2025-03-24 15:46 | XMS_ITS | Encounter Summary ---
Author Organization [facility] Address [address] [place] [address] Care Team Providers Care Inventory Control Manager Name Role Phone Shen Perez MD Primary Care Provider [phone] Debbie Chavez NP Unavailable Encounter Details Date Type Department Care Team (Late st Contact Info) Description 03/14/2025 Orders Only [facility] [address] [place] [address] Social History Tobacco Use Types Packs/Day Years [...] any clubs o r organizations such as yarsanism groups, unions, fraternal or athletic groups, or [...] medical care, and heating? Patient declined 08/25/2023 [facility] of Occupat ional Health - Occupational Stress [...] Office Visit [facility] [address] [place] [address] Sophie Delarosa NP [address] [place] [address] documented as of this encounter Procedures Procedure Name Priority Date/Time Associated Diagnosis Comments ECG 12-LEAD Routine 03/14/2025 10:18 AM EDT documented in this encounter Results * ECG 12 lead (03/14/2025 10:18 AM EDT) [facility] ECG ORDERABLES Final Result documented in this encounter Visit Diagnoses Not on filedocumented in this encounter Care Teams Inventory Control Manager Relationship Specialty Start Date End Date Shen Perez MD [address] [place] [address] PCP - General Family Medicine 06/02/24 Debbie Chavez NP [address] [place] [address] Nurse Practitioner Family Medicine 06/02/24 documented as of this encounter
--- OUTSIDE RECORDS SUMMARY | 2025-03-24 15:46 | XMS_ITS | Encounter Summary ---
Author Organization [facility] Address [id number] [address] [place] [address] Care Team Providers Care Cookee Name Role Phone Shaikh MEG Carlos Primary Care Provider [phone] Encounter Details Date Type Department Care Team (Late st Contact Info) Description 09/28/2021 Orders Only [facility] [address] [place] [address] Oralia Sevilla, MANA Preop testing [...] Specimen Naso Pharynx 10/06/2021 9:18 PM EST [facility] Sent to Testing to be performed at [facility]. 10/06/2021 9:18 PM EST [facility]. 10/06/2021 9:18 PM EST [facility] Nasopharyngeal structure / Unknown 10/06/2021 10:57 AM EST 10/06/2021 9:14 PM EST us Anahi Yepez MD MICROBIOLOGY - GENERAL ORDE BHUMI Final Result [place] [facility] [address] [place] [address] documented in this encounter Visit Diagnoses Diagnosis Preop testing- Primary Unspecified pre-operative examination documented in this encounter Additional Health Concerns Infection Onset Date Last Indicated Resolved Time COVID-19 Rule-Out 10/29/2021 10/29/2021 10/29/2021 7:38 PM EST COVID-19 Rule-Out 11/19/2021 11/19/2021 11/19/2021 9:42 PM EDT documented as of this encounter Care Teams Cookee Relationship Specialty Start Date End Date Shaikh Carlos MD PCP - General Internal Medicine 02/27/23 documented as of this encounter
--- OUTSIDE RECORDS SUMMARY | 2025-03-24 15:46 | XMS_ITS | Encounter Summary ---
Author Organization [facility] Address [address] [place] [address] Care Team Providers Care Pulp Maker Name Role Phone Shen Perez MD Primary Care Provider [phone] Debbie Chavez NP Unavailable [phone] Encounter Details Date Type Department Care Team [...] week 08/25/2023 How often do you attend [facility] or christian services? More than 4 times per year 08/25/2023 Do you belong to any clubs o r organizations such as christianity groups, unions, fraternal or athletic groups, or [...] medical care, and heating? Patient declined 08/25/2023 [facility] Occupat ional [facility] - Occupational Stress Questionnaire Answer Date [...] 2:20 PM EDT Office Visit [facility] [address] [place] [address] Sophie Delarosa NP [address] [place] [address] documented as of this encounter Procedures Procedure Name Priority Date/Time Associated Diagnosis Comments [facility] W/O COUM Routine 03/14/2025 8:52 AM EDT [facility] APTT Routine 03/14/2025 8:52 AM EDT ALL CBC WITH AUTO DIFF Routine 03/14/2025 8:52 AM EDT ALL BASIC METABOLIC PANEL Routine 03/14/2025 8:52 AM EDT documented in this encounter Results * [facility] APTT (03/14/2025 8:52 AM EDT) PARTIAL THROMBOPLASTIN TIME 25.4 22.3 - 36.2 sec [facility] 03/14/2025 8:52 AM EDT 03/14/2025 9:00 AM EDT Narrative [facility] - 03/14/2025 9:28 AM EDT Generic External Data Provider [facility] F inal Result Performing Organization Address City/[facility]/ZIP Co de Phone Number [facility] * [facility] PROTHROMBIN TIME INR W/O COUM (03/14/2025 8:52 AM EDT) PROTHROMBIN TIME 10.5 9.0 - 11.6 sec TB TB INR 0.99 TB Comment: DESIRED INR: 2.0-3.0 CONDITIONS NOT LISTED BELOW 2.5-3.5 FOR PROSTHETIC HEART VALVE REPLACEMENT 2.5-3.5 RECURRENT THROMBOSIS 03/14/2025 8:52 AM EDT 03/14/2025 9:00 AM EDT Narrative [facility] - 03/14/2025 9:28 AM EDT Generic External Data Provider [facility]INIS[facility]NC F ina Result Performing Organization Address [facility] Co de Phone Number [facility] * (ABNORMAL) ALL CBC WITH AUTO DIFF (03/14/2025 8:52 AM EDT) [facility] WBC 10.9 4.0 - 11.0 10 3/uL [facility] TB RBC 4.79 4.70 - 6.10 10 6/uL [facility] TB HGB 13.9(L) 14.0 - 18.0 g/dL TB TB HCT 41.8(L) 42.0 - 54.0 % TB TB MCV 87.3 80.0 - 94.0 fL [facility] TB MCH 29.0 25.9 - 34.0 pg TBH TB MCHC 33.3 29.9 - 35.2 g/dL TB TB RDW 14.6 11.0 - 15.0 % TB[facility] TB PLT 266 150 - 450 10 3/uL TBH TB MPV 9.7 9.5 - 13.5 fL [facility] NEUTROPHILS PERCENT AUTO 79.3(H) 43.0 - 75.0 % TB[facility] LYMPHOCYTES PERCENT AUTO 8.5(L) 20.5 - 60.0 % [facility] MONOCYTES PERCENT AUTO 7.4 1.7 - 12.0 % TBH TBH EO % 3.7 0.9 - 7.0 % TBH BASOPHILS PERCENT AUTO 0.8 0.2 - 2.0 % [facility] IMMATURE GRANULOCYTES PCT AUTO 0.3 0.0 - 0.5 % [facility] NEUTROPHILS ABSOLUTE AUTO 8.6(H) 1.4 - 6.5 10 3/uL TBH LYMPHOCYTES ABSOLUTE AUTO 0.9(L) 1.2 - 3.8 10 3/uL TBH MONOCYTES ABSOLUTE AUTO 0.8 0.3 - 0.8 10 3/uL TBH TBH EO # 0.4 0.0 - 0.7 10 3/uL TBH BASOPHILS ABSOLUTE AUTO 0.1 0.0 - 0.1 10 3/uL [facility] IMMATURE GRANULOCYTES ABS AUTO 0.03 0.00 - 0.03 10 3/uL [facility] 03/14/2025 8:52 AM EDT 03/14/2025 9:00 AM EDT Narrative [facility] - 03/14/2025 9:22 AM EDT us Generic External Data Provider [facility] F inal Result [facility] * (ABNORMAL) ALL BASIC METABOLIC PANEL (03/14/2025 8:52 AM EDT) SODIUM 144 136 - 145 mmol/L [facility] POTASSIUM 4.4 3.5 - 5.1 mmol/L [facility] CHLORIDE 106 98 - 107 mmol/L TBH CARBON DIOXIDE 30.7 21.0 - 32.0 mmol/L [facility] ANION GAP 11.7 TBH GLUCOSE 127(H) 74 - 106 mg/dL [facility] BLOOD UREA NITROGEN 18.0 7.0 - 18.0 mg/dL [facility] CREATININE 0.69(L) 0.70 - 1.30 mg/dL TBH TBH EGFR-AF MALAWIAN >60 >=60 mL/min/1.7 3m 2 TBH TBH EGFR-NON AF MALAWIAN >60 >=60 mL/min/1.7 3m 2 TBH BUN CREATININE RATIO 26.1 TBH CALCIUM 9.1 8.5 - 10.1 mg/dL [facility] 03/14/2025 8:52 AM EDT 03/14/2025 9:00 AM EDT Narrative [facility] - 03/14/2025 9:18 AM EDT us Generic External Data Provider [facility] F inal Result [facility] documented in this encounter Visit Diagnoses Not on filedocumented in this encounter Care Teams Pulp Maker Relationship Specialty Start Date End Date Shen Perez MD [address] [place] [address] PCP - General Family Medicine 06/02/24 Debbie Chavez NP [address] [place] [address] Nurse Practitioner Family Medicine 06/02/24 documented as of this encounter
--- OUTSIDE RECORDS SUMMARY | 2025-03-24 15:46 | XMS_ITS | Clinical Summary ---
Author Organization [facility] Address [address] [place] [address] Care Team Providers Care Orchestra Director Name Role Phone Sophie Delarosa MD Primary Care Provider [phone] Allergies No known active allergies Medications metFORMIN (Glucophage) 500 mg tablet Take 500 mg by mouth with breakfast and with evening meal. 3 05/26/20 25 Active meloxicam (Mobic) 15 mg tablet Take 15 mg by mouth in the morning. Active metoprolol succinate XL (Toprol-XL) 50 mg 24 hr tablet Take 50 mg by mouth in the morning. Active tamsulosin (Flomax) 0.4 mg 24 hr capsule Take 0.4 mg by mouth twice a day. 3 06/04/20 25 Active FeroSuL 325 mg (65 mg iron) tablet TAKE 1 TABLET BY MOUTH IN THE MORNING WITH MEALS Active aspirin 81 mg EC tablet Take 81 mg by mouth in the morning. 4 08/12/20 25 Active atorvastatin (Lipitor) 20 mg tablet Take 20 mg by mouth in the morning. 3 05/24/20 25 Active dutasteride (Avodart) 0.5 mg capsule Take 0.5 mg by mouth in the morning. 5 Active Active Problems Problem Noted Date Diagnosed Date Anticoagulated 03/18/2025 Diabetes 03/18/2025 Feeling of incomplete bladder emptying 5 History of kidney stones 03/18/2025 Hydrocele 03/18/2025 Abnormal EKG 03/16/2025 Hydrocele in adult 12/17/2024 MAR (obstructive sleep apnea) 12/13/2024 Swelling of left half of scrotum 12/13/2024 Acute rhinitis 08/24/2024 Chronic left shoulder pain 02/25/2024 Chronic pain of left knee 02/25/2024 Iron deficiency anemia 02/25/2024 BPH with urinary obstruction 08/26/2023 ED (erectile dysfunction) 08/26/2023 Hyperlipidemia 08/26/2023 Hypertension 08/26/2023 Preoperative evaluation to r ule out surgical contraindication 08/26/2023 TIA (transient ischemic attack) 08/26/2023 Prediabetes 03/01/2022 Obesity (BMI 30-39.9) 12/03/2021 Precordial pain 12/10/2019 Encounters Date Type Department Care Team Description 03/18/2025 11:00 AM EDT Office Visit [facility] [address] [place] [address] Mallory Reyes MD Preoperative evaluation to rule out surgical contraindication (Primary Dx); Abnormal EKG; PVC (premature ventricular contraction); Primary hypertension; TIA (transient ischemic attack); Type 2 diabetes mellitus without complication, without long-term current use of insulin ([facility]); Obesity (BMI 30-39.9); Prediabetes; Pure hypercholesterolemia 03/18/2025 Orders Only [facility] at [facility] [address] [place] [address] Provider, MD Alyssa from Last 3 Months Family History Medical History Relation Name Comments CABG Father Coronary artery disease Father Heart attack Father Coronary artery disease Maternal Grandfather pacemaker Maternal Grandfather Relation Name Status Comments Father Maternal Grandfather Social History Tobacco Use Types Packs/Day [...] Mass Index 31.28 03/18/2025 11:07 AM EDT Plan of Treatment Health Maintenance Due Date Last Done Comments CT Colonography 1955 Colonoscopy 1955 Colorectal Cancer Screening 1955 Diabetes: Hemoglobin A1C 1957 FIT-DNA 1957 FIT 1957 FOBT 1955 Sigmoidoscopy 1957 Diabetes: Retinopathy Screening 1967 Depression Screening 1969 Diabetes: Urine Protein Screening 1976 Fall Risk Screening 2022 COVID-19 Vaccine ( season) 2024 07/10/2024, 08/15/2023, 07/04/2022, Additional history exists Influenza Vaccine (#1) 2025 , 06/08/2024, 06/22/2023, Additional history exists Adult Tetanus 06/30/2030 06/30/2020 Zoster Vaccines Completed 03/15/2020, 11/2019, 12/19/2016 Pneumococcal Vaccine: 50+ Years Completed 09/13/2023 HIB Vaccines Aged Out No longer eligi ble based on patient's age to complete this topic HPV Vaccines Aged Out No longer eligi ble based on patient's age to complete this topic IPV Vaccines Aged Out No longer eligi ble based on patient's age to complete this topic Meningococcal B Vaccine Aged Out No l onger eligible based on patient's age to complete this topic Meningococcal Vaccine Aged Out No sydney soco eligible based on patient's age to complete this topic Rotavirus Vaccines Aged Out No longer eligible based on patient's age to complete this topic [place] [address] [place] [address] Care Teams Orchestra Director Relationship Specialty Start Date End Date Sophie Delarosa MD [address] [place] [phone] PCP - General Nurse Practitioner 03/16/25
--- OUTSIDE RECORDS SUMMARY | 2025-03-24 15:46 | XMS_ITS | Encounter Summary ---
Author Organization [facility] Address [address] [place] [address] Care Team Providers Care Lacrosse Coach Name Role Phone Shaikh MEG Carlos Primary Care Provider [phone] Shen Perez MD Primary Care Provider [phone] Debbie Chavez NP Unavailable [phone] Encounter Details Date Type Department Care Team (Late st Contact Info) Description 03/02/2024 Clinisync Result Encounter [facility] External Department Unsolicited Shaikh Carlos MD [address] [place] [address] Social History Tobacco Use Types Packs/Day Years [...] How often do you attend chur or worship services? More than 4 times per year 08/25/2023 Do you belong to any clubs o r organizations such as yazidism groups, unions, fraternal or athletic groups, or [...] medical care, and heating? Patient declined 08/25/2023 [facility] Occupat ional Health - Occupational [...] place to sleep or slept in a prison (including now)? No 08/25/2023 Sex and Gender [...] Visit [facility] [address] [place] [address] Sophie Delarosa NP [address] [place] [address] documented as of this encounter Procedures Procedure Name Priority Date/Time Associated Diagnosis Comments XR SHOULDER 2+ VIEWS LEFT 03/02/2024 7:10 AM EDT documented in this encounter Results * XR shoulder 2+ views left (03/02/2024 7:10 AM EDT) Anatomical Region Laterality Modality Upper Extremities, Shoulder Left Radi ographic Imaging 03/02/2024 7:10 AM EDT Narrative 03/02/2024 7:13 AM EDT The [address] [address] XRay Report Signed Patient: MARTI MAHAJAN MR#: [id number] : 1955 Acct:[id number] Age/Sex: 68 / M ADM Date: 03/01/24 Loc: RAD Attending Dr: Shaikh Breanna Foster Ordering Physician: Shaikh Kristin Carlos Date of Service: 03/01/24 Procedure(s): XR shoulder LT min 2V Accession Number(s): [id number] cc: Shaikh Kristin Carlos The [place] [address] Patient Name: MARTI MAHAJAN MRN: [facility]:[id number] date: 1955 Sex: M Assigned Patient Location: RAD Current Patient Location: RAD Accession/Order Number: [id number] Exam Date: 03/01/2024 16:35 Report Date: 03/02/2024 [...] Signed By: 03/02/24 0713 DD/ 0710 TD/TT: Industrial Automation Engineer: Procedure Note Radiology, Radiologist, MD - 03/02/2024 [place] [address] XRay Report Signed Patient: MARTI MAHAJAN LMR#: [id number] : 1955cct:[id number] Age/Sex: 68 / MADM Date: 03/01/24 Loc: RAD Attending Dr: Shaikh Breanna Foster Ordering Physician: Shaikh Kritsin Carlos Date of Service: 03/01/24 Procedure(s): XR shoulder LT min 2V Accession Number(s): [id number] cc: Shaikh Kristin Carlos The [place] [id number] Patient Name: MARTI MAHAJAN MRN: [id number] date: 1955 Sex: M Assigned Patient Location: RAD Current Patient Location: RAD Accession/Order Number: [id number] Exam Date: 03/01/2024 16:35 Report Date: 03/02/2024 [...] [place] M.D. Signed By:03/02/24 0713 DD/ TD/TT: Industrial Automation Engineer: Shaikh Breanna WEAVER IMG XR PROCEDURES Final Result documented in this encounter Visit Diagnoses Not on filedocumented in this encounter Care Teams Lacrosse Coach Relationship Specialty Start Date End Date Shaikh Carlos MD [address] [place] [address] PCP - General Internal Medicine 02/25/24 06/01/24 Shen Perez MD [address] [place] [address] PCP - General Family Medicine 06/02/24 Debbie Chavez NP [address] [place] [address] Nurse Practitioner Family Medicine 06/02/24 documented as of this encounter
--- OUTSIDE RECORDS SUMMARY | 2025-03-24 15:46 | XMS_ITS | Encounter Summary ---
Author Organization [facility] Address [address] [place] [address] Care Team Providers Care Sheep And Wheat Farmer Name Role Phone Shen Perez MD Primary Care Provider [phone] Debbie Chavez NP Unavailable [phone] Encounter Details Date Type Department Care Team (Late st Contact Info) Description 03/14/2025 Abstract [facility] [address] [place] [id number] Sophie Delarosa NP [address] [place] [address] Social History Tobacco Use Types Packs/Day Years [...] How often do you attend chur or buddhist services? More than 4 times per year 08/25/2023 Do you belong to any clubs o r organizations such as restorationism groups, unions, fraternal or athletic groups, or [...] medical care, and heating? Patient declined 08/25/2023 [facility] - Occupational Stress Questionnaire Answer Date Recorded [...] place to sleep or slept in a nursing home (including now)? No 08/25/2023 Sex and [...] Office Visit [facility] [address] [place] [address] Sophie Delarosa NP [address] [place] [address] documented as of this encounter Visit Diagnoses Not on filedocumented in this encounter Care Teams Sheep And Wheat Farmer Relationship Specialty Start Date End Date Shen Perez MD [address] [place] [address] PCP - General Family Medicine 06/02/24 Debbie Chavez NP [address] [place] [address] Nurse Practitioner Family Medicine 06/02/24 documented as of this encounter
--- OUTSIDE RECORDS SUMMARY | 2025-03-24 15:46 | XMS_ITS | Encounter Summary ---
Author Organization [facility] Address [address] [place] [address] Care Team Providers Care Geological Aide Name Role Phone Shaikh MEG Carlos Primary Care Provider [phone] Shen Perez MD Primary Care Provider [phone] Debbie Chavez NP Unavailable [phone] Encounter Details Date Type Department Care Team (Late st Contact Info) Description 03/02/2024 Clinisync Result Encounter [facility] External Department Unsolicited Shaikh Carlos MD [address] [place] [address] Social History Tobacco Use Types Packs/Day Years [...] How often do you attend chur or spiritism services? More than 4 times per year 08/25/2023 Do you belong to any clubs o r organizations such as pentecostal groups, unions, fraternal or athletic groups, or [...] medical care, and heating? Patient declined 08/25/2023 [facility] - Occupational [...] Visit [facility] [address] [place] [address] Sophie Delarosa NP [address] [facility] [place] [address] documented as of this encounter Procedures Procedure Name Priority Date/Time Associated Diagnosis Comments XR KNEE 3 VIEWS LEFT 03/02/2024 7:09 AM EDT documented in this encounter Results * XR knee 3 views left (03/02/2024 7:09 AM EDT) Anatomical Region Laterality Modality Lower Extremities, Knee Left [facility] 03/02/2024 7:09 AM EDT Narrative 03/02/2024 7:11 AM EDT The [address] [address] XRay Report Signed Patient: MARTI MAHAJAN MR#: [id number] : 1955 Acct:[id number] Age/Sex: 68 / M ADM Date: 03/01/24 Loc: RAD Attending Dr: Shaikh Breanna Foster Ordering Physician: Shaikh Kristin Carlos Date of Service: 03/01/24 Procedure(s): XR knee LT 3V Accession Number(s): [id number] cc: Shaikh Kristin Carlos The [place] [id number] Patient Name: MARTI MAHAJAN MRN: [id number] date: 1955 Sex: M Assigned Patient Location: RAD Current Patient Location: Accession/Order Number: [id number] Exam Date: 03/01/2024 16:35 Report Date: 03/02/2024 07:09 At the request of: SHAIKH BREANNA Procedure: XR knee LT 3V PROCEDURE: XR knee LT 3V COMPARISON: None. HISTORY: Chronic Left knee pain M25.512 FINDINGS: BONES:No acute fracture or dislocation. Severe osteoarthritis of the anterior compartment with brhq-wr-hkcr articulation and marginal osteophyte formation SOFT TISSUES:Negative. No visible soft tissue swelling. EFFUSION:None visible. OTHER: Negative. XR/XR knee LT 3V IMPRESSION: Severe patellofemoral osteoarthritis Electronically authenticated by: MELISSA OVIEDO Date: 03/02/2024 07:09 Dictated By: Melissa Oviedo M.D. Signed By: 03/02/24 0711 DD/ 0709 TD/TT: Network Applications Specialist: Procedure Note Radiology, Radiologist, MD - 03/02/[address] [address] XRay Report Signed Patient: MARTI MAHAJAN LMR#: [id number] : 1955cct:[id number] Age/Sex: 68 / MADM Date: 03/01/24 Loc: RAD Attending Dr: Shaikh Breanna Foster Ordering Physician: Shaikh Kristin Carlos Date of Service: 03/01/24 Procedure(s): XR knee LT 3V Accession Number(s): [id number] cc: Shaikh Kristin Carlos The [place] [address] Patient Name: MARTI MAHAJAN MRN: [id number] date: 1955 Sex: M Assigned Patient Location: [facility] Current Patient Location: Accession/Order Number: [id number] Exam Date: 03/01/2024 16:35 Report Date: 03/02/2024 07:09 At the request of: SHAIKH BREANNA Procedure: XR knee LT 3V PROCEDURE: XR knee LT 3V COMPARISON: None. HISTORY: Chronic Left knee pain M25.512 FINDINGS: BONES:No acute fracture or dislocation. Severe osteoarthritis of theanterior compartment with tqfu-ol-buyu articulation and marginal osteophyteformation SOFT TISSUES:Negative. No visible soft tissue swelling. EFFUSION:None visible. OTHER: Negative. XR/XR knee LT 3V IMPRESSION: Severe patellofemoral osteoarthritis Electronically authenticated by: MELISSA OVIEDO Date: 03/02/2024 07:09 Dictated By: Melissa Oviedo M.D. Signed By:03/02/24 0711 DD/ 0709 TD/TT: Network Applications Specialist: Shaikh Breanna WEAVER IMG XR PROCEDURES Final Result documented in this encounter Visit Diagnoses Not on filedocumented in this encounter Care Teams Geological Aide Relationship Specialty Start Date End Date Shaikh Carlos MD [address] [place] [address] PCP - General Internal Medicine 02/25/24 06/01/24 Shen Perez MD [address] [place] [phone] PCP - General Family Medicine 06/02/24 Debbie Chavez NP [address] [place] [address] Nurse Practitioner Family Medicine 06/02/24 documented as of this encounter
--- OUTSIDE RECORDS SUMMARY | 2025-03-24 15:46 | XMS_ITS | Clinical Summary ---
Author Organization [facility] Healthcare Address [address] [place] [address] Care Team Providers Care Billet Driller Name Role Phone Shen Perez MD Primary Care Provider [phone] Debbie Chavez NP Unavailable [phone] Allergies No known active allergies Medications tadalafil [...] Active Problems Problem Noted Date Diagnosed Date Abnormal EKG 03/16/2025 Hydrocele in adult 12/17/2024 Screening for prostate cancer 12/13/2024 Overview (12/20/2024): PSA: 1.01 12/18/24 Swelling of left half of scrotum 12/13/2024 Assessment & Plan (12/13/2024 10:30 AM EDT): Suspected inguinal hernia with hydrocele Check US TB MAR (obstructive sleep apnea) 12/13/2024 Assessment & [...] Encounters Date Type Department Care Team Description 03/16/2025 Telephone [facility] [address] [place] [address] Sophie Delarosa NP 03/16/2025 Orders Only [facility] [address] [place] [address] Sophie Delarosa NP Abnormal EKG (Primary Dx) 03/14/2025 Clinisync Result Encounter [facility] External Department Unsolicited Provider, Generic External Data 03/14/2025 Orders Only [facility] [address] [place] [address] 03/14/2025 Abstract [facility] [address] [place] [address] Sophie Delarosa NP 03/14/2025 Clinisync Result Encounter [facility] External Department Unsolicited Provider, Generic External Data 03/06/2025 Refill [facility] [address] [place] [address] Shen Perez MD Other chronic pain 03/05/2025 Refill [facility] [address] [place] [address] Shen Perez MD BPH with urinary obstruction 02/25/2025 Refill [facility] [address] [place] [address] Shen Perez MD Prediabetes 02/23/2025 Refill [facility] [address] [place] [address] Shen Perez MD Hyperlipidemia, unspecified hyperlipidemia type 02/09/2025 Clinisync Result Encounter [facility] External Department Unsolicited Provider, Generic External Data 01/12/2025 Refill [facility] [address] [place] [address] Shen Perez MD Primary hypertension 01/03/2025 Refill [facility] [address] [place] [address] Shen Perez MD Acute rhinitis 01/03/2025 Refill [facility] [address] [place] [address] Shen Perez MD Acute rhinitis from Last 3 Months Immunizations Immunization Administration Dates Next Due Influenza, High Dose Seasonal, Preservative Free 07/10/2024 Influenza, Seasonal, Quadrivalent, Adjuvanted ,06/15/2022 Influenza, injectable, MDCK, preservative free, quadrivalent 07/17/2018 Influenza, injectable, quadrivalent, preservativ e free 06/30/2020,07/29/2019 Influenza, seasonal, injectable 06/08/2024 Novel esthmdnly-[id number], preservative-free 09/18 Pneumococcal Conjugate PCV 20 09/13/2023 [...] How often do you attend chur or yarsanism services? More than 4 times per year [...] place to sleep or slept in a [place] (including now)? No 08/25/2023 Sex and Gender [...] EDT Office Visit [facility] [address] [place] [address] Sophie Delarosa NP [address] [place] [address] Health Maintenance Due Date Last Done Comments [...] ECG 12-LEAD Routine 03/14/2025 10:18 AM EDT [facility] APTT Routine 03/14/2025 8:52 AM EDT [facility] PROTHROMBIN TIME INR W/O COUM Routine 03/14/2025 8:52 AM EDT ALL CBC WITH AUTO DIFF Routine 03/14/2025 8:52 AM EDT ALL BASIC METABOLIC PANEL Routine 03/14/2025 8:52 AM EDT ECG 12-LEAD 03/14/2025 6:49 AM EDT US SCROTUM 02/09/2025 6:42 PM EDT from Last 3 Months Results * ECG 12 lead (03/14/2025 10:18 AM EDT) [facility] ECG ORDERABLES Final Result * [facility] PROTHROMBIN TIME INR W/O COUM (03/14/2025 8:52 AM EDT) PROTHROMBIN TIME 10.5 9.0 - 11.6 sec TBH TBH INR 0.99 TBH Comment: DESIRED INR: 2.0-3.0 CONDITIONS NOT LISTED BELOW 2.5-3.5 FOR PROSTHETIC HEART VALVE REPLACEMENT 2.5-3.5 RECURRENT THROMBOSIS 03/14/2025 8:52 AM EDT 03/14/2025 9:00 AM EDT Narrative [facility]IN[facility] - 03/14/2025 9:28 AM EDT Generic External Data Provider TRINITY F giulia Result Performing Organization Address [facility] Co de Phone Number [facility] * [facility] APTT (03/14/2025 8:52 AM EDT) PARTIAL THROMBOPLASTIN TIME 25.4 22.3 - 36.2 sec TBH 03/14/2025 8:52 AM EDT 03/14/2025 9:00 AM EDT Narrative [facility] - 03/14/2025 9:28 AM EDT Generic External Data Provider CORWINNC F giulia Result [facility] * (ABNORMAL) ALL CBC WITH AUTO DIFF (03/14/2025 8:52 AM EDT) [facility] TBH WBC 10.9 4.0 - 11.0 10 3/uL TBH TBH RBC 4.79 4.70 - 6.10 10 6/uL TBH TBH HGB 13.9(L) 14.0 - 18.0 g/dL TBH TBH HCT 41.8(L) 42.0 - 54.0 % TBH TBH MCV 87.3 80.0 - 94.0 fL TBH TBH MCH 29.0 25.9 - 34.0 pg TBH TBH MCHC 33.3 29.9 - 35.2 g/dL TBH TBH RDW 14.6 11.0 - 15.0 % TBH TBH PLT 266 150 - 450 10 3/uL TBH TBH MPV 9.7 9.5 - 13.5 fL TBH [...] Narrative CLIN[facility]YNC - 03/14/2025 9:22 AM EDT Generic External Data Provider CLINIS[facility]NC F inal Result [facility] * (ABNORMAL) ALL BASIC METABOLIC PANEL (03/14/2025 [...] 0.70 - 1.30 mg/dL TBH TBH EGFR-AF TANZANIAN >60 >=60 mL/min/1.7 3m 2 TBH TBH EGFR-NON AF TANZANIAN >60 >=60 mL/min/1.7 3m 2 TBH BUN CREATININE RATIO 26.1 TBH CALCIUM 9.1 8.5 - 10.1 mg/dL TBH 03/14/2025 8:52 AM EDT 03/14/2025 9:00 AM EDT Narrative CLINISYNC - 03/14/2025 9:18 AM EDT Generic External Data Provider [facility] F inal Result [facility] * ECG 12-LEAD (03/14/2025 6:49 AM EDT) Anatomical Region Laterality Modality Other 03/14/2025 6:49 AM EDT Narrative 03/14/2025 8:31 PM EDT [address] [address] Electrocardiograph Report Signed Patient: MARTI MORGAN MR#: [id number] : 1955 Acct:[id number] Age/Sex: 69 / M ADM Date: 03/14/25 Loc: PST Attending Dr: Neri Hirsch M.D. Ordering Physician: Neri Hirsch M.D. Date of Service: 03/14/25 Procedure(s): ECG 12 lead Accession Number(s): [id number] cc: [facility] Test Date: 2025-03-14 Pat Name: MARTI MORGAN Department: Room: - Gender: Male Life Science Teacher: : 1955 Requested By: NERI HIRSCH Order Number: [id number] Reading MD: MARTI MIKE M.D. Measurements Intervals [place] Rate: 76 P: 153 [place]: 195 QRS: -21 QRSD: 115 T: 150 [...] MIKE Signed By: 03/14/252030 DD/ 8 TD/TT: Scale Assembly Set Up Worker: Procedure Note Radiology, Radiologist, MD - 03/14/2025 [place] [address] Electrocardiograph Report Signed Patient: MARTI MORGAN LMR#: [id number] : 1955cct:[id number] Age/Sex: 69 / MADM Date: 03/14/25 Loc: PST Attending Dr: Neri Hirsch M.D. Ordering Physician: Neri Hirsch M.D. Date of Service: 03/14/25 Procedure(s): ECG 12 lead Accession Number(s): [id number] cc: [facility] Test Date: 2025-03-14 Pat Name: MARTI MORGAN Department: Room: - Gender: Male Life Science Teacher: : 1955 Requested By: NERI HIRSCH Order Number: [id number] Reading MD: MARTI MIKE M.D. Measurements Intervals [place] Rate: 76 P: 153 [place]: 195 QRS: -21 QRSD: 115 T: 150 [...] MARTI MIKE Signed By:03/14/252030 DD/ 8 TD/TT: Scale Assembly Set Up Worker: us Generic External Data Provider [facility] IMAGING Final Result * US scrotum (02/09/2025 6:42 PM EDT) Anatomical Region Laterality Modality Body Ultrasound 02/09/2025 6:42 PM EDT Narrative 02/10/2025 9:50 [place] [address] Ultrasound Report Signed Patient: MARTI MORGAN MR#: [id number] : 1955 Acct:[id number] Age/Sex: 69 / M ADM Date: 02/09/25 Loc: US Attending Dr: Neri Hirsch M.D. Ordering Physician: Neri Hirsch M.D. Date of Service: 02/09/25 Procedure(s): US scrotum Accession Number(s): [id number] cc: Sophie Delarosa ELECTRIC METER REPAIRER APPRENTICE; Neri Hirsch M.D. [address] [address] Patient Name: MARTI MORGAN MRN: [id number] date: 1955 Sex: M Assigned Patient Location: US Current Patient Location: US Accession/Order Number: [id number] Exam Date: 02/09/2025 18:40 Report Date: 02/09/2025 18:42 At the request of: NERI HIRSCH MD Procedure: US scrotum Scrotal ultrasound HISTORY: [...] Rudolph M.D. 02/09/2025 6:42 PM Dictation Location: [place] [address] Electronically authenticated by: [id number] Y Date: 02/09/2025 18:42 Dictated By: Clinton Rudolph D.O. Signed By: 02/10/25 0950 DD/ 1842 TD/TT: Scale Assembly Set Up Worker: Procedure Note Radiology, Radiologist, - 02/10/2025 [place] [address] Ultrasound Report Signed Patient: MARTI MORGAN LMR#: [id number] : 1955cct:[id number] Age/Sex: 69 / MADM Date: 02/09/25 Loc: US Attending Dr: Neri Hirsch M.D. Ordering Physician: Neri Hirsch M.D. Date of Service: 02/09/25 Procedure(s): US scrotum Accession Number(s): [id number] cc: Sophie Delarosa NP; Neri Hirsch M.D. [address] [address] Patient Name: MARTI MORGAN MRN: [id number] date: 1955 Sex: M Assigned Patient Location: US Current Patient Location: US Accession/Order Number: [id number] Exam Date: 02/09/2025 18:40 Report Date: 02/09/2025 18:42 At the request of: NERI HIRSCH MD Procedure: US scrotum Scrotal ultrasound HISTORY: [...] Rudolph M.D. 02/09/2025 6:42 PM Dictation Location: [place] [address] Electronically authenticated by: [id number] Y Date: 8:42 Dictated By: Clinton Rudolph D.O. Signed By:02/10/25 0950 DD/ 1842 TD/TT: Scale Assembly Set Up Worker: us Generic External Data Provider IMG US PROCEDURES Final Result from Last 3 Months Insurance [employer] Care Teams Billet Driller Relationship Specialty Start Date End Date Shen Perez MD [address] [place] [address] PCP - General Family Medicine 06/02/24 Debbie Chavez NP [address] [place] [address] Nurse Practitioner Family Medicine 06/02/24
--- NOTE | 2025-03-24 16:00 | CA_ITS ---
Patient Name: MARTI MORGAN MR#: [id number] : 1955 Exam Date: 03/24/2025 Ordering Doctor: DR. MISAEL REYES M.D. ECHOCARDIOGRAM REPORT PROCEDURE: CA ECHO DOPPLER COMPLETE INDICATIONS: Abnormal ekg COMPARISON: None. DESCRIPTION: COMPLETE ECHOCARDIOGRAM Real-time transthoracic echocardiography with 2D, M-mode, spectral and color flow Doppler performed. QUALITY: Technical quality was adequate. LEFT VENTRICLE: Normal chamber size. Mild concentric left ventricular hypertrophy. Global left ventricular systolic function is normal without wall motion abnormalities. Calculated left ventricular ejection fraction is 61%. LV EF: 61% DIASTOLIC: Normal diastolic function. ATRIAL SEPTUM: Appears intact LEFT ATRIUM: Normal chamber size. RIGHT ATRIUM: Mild dilatation. RIGHT VENTRICLE: Normal chamber size. Normal right ventricular systolic function. TRICUSPID VALVE: Normal mobility and thickness. No stenosis with trivial regurgitation. No evidence of pulmonary hypertension.RVSP 22mmHg MITRAL VALVE: Mildly thickened with normal mobility. No evidence of mitral valve stenosis. There is no mitral annular calcification. Trivial mitral regurgitation. AORTIC VALVE: Normal trileaflet appearance. No visible sclerosis. Normal leaflet mobility. No evidence of aortic valve stenosis. No aortic regurgitation. AORTIC ROOT: Mildly dilated aortic root 3.9 cm, normal ascending aorta size 3.7 cm PULMONIC VALVE: Normal thickness and mobility. No stenosis. Trivial regurgitation. PERICARDIUM: No evidence of pericardial effusion. IVC: Collapes with inspirations. PLEURA: CONCLUSION: Mild concentric left ventricle hypertrophy Normal left ventricular systolic function without wall motion abnormalities, ejection fraction 61% Normal left ventricular diastolic function Normal right ventricular size and systolic function Normal right-sided pressures No significant valvular abnormalities Mildly dilated aortic root 3.9 cm Adult Echocardiography Procedure Report Left Ventricle LVEDD (3.7 - 5.6 cm): 4.48 cm LVESD (2.2 - 4.0 cm): 3.29 cm LVIVS thickness (0.6 - 1.2 cm): 1.35 cm LVPW thickness (0.5 - 1.0 cm): 1.37 cm e': 0.11 m/s E - e': 11.15 LVOT Max Gradient: 4.01 mm[Hg], 3.68 mm[Hg] LVOT Area (cm2): 0.98 m/s Peak Velocity (LVOT): 1.00 m/s, 0.96 m/s Mean Velocity (LVOT): 0.68 m/s LVOT Diameter 1.99 cm Left Ventricular Ejection Fraction: 60.97 % Left Atrium LA Volume Index (2D A2C): 32.56 ml/m2 Left Atrium Systolic Dimension: 4.05 cm Mitral Valve MV E to A Ratio: 1.01 Mitral Valve A-Wave Peak Velocity: 1.20 m/s Mitral Valve E-Wave Peak Velocity: 1.20 m/s Right Ventricle RV Internal Diastolic Dimension: 3.75 cm Aorta AO Root Diam: 3.82 cm Ascending Ao Diam: 3.71 cm Aortic Valve AoV Area (Peak [place]): 2.54 cm2, 2.59 cm2 AoV Area (VTI): 2.65 cm2, 2.72 cm2 Peak Velocity(Antegrade Flow): 1.19 m/s Peak Gradient(Antegrade Flow): 5.70 mm[Hg] Mean Velocity(Antegrade Flow): 0.85 m/s Mean Gradient(Antegrade Flow): 3.27 mm[Hg] Velocity Time Integral: 24.96 cm Tricuspid Valve Peak Velocity (Regurgitant Flow): 2.17 m/s, 2.13 m/s Pulmonic Valve Mean Gradient: 2.58 mm[Hg] Mean Velocity: 0.76 m/s Peak Velocity: 1.02 m/s, 0.87 m/s Peak Gradient: 4.13 mm[Hg], 3.03 mm[Hg] Right Atrium Right Atrium Systolic Pressure: 56.34 ml, 56.34 ml Dictated by: Misael Reyes MD on 03/26/2025 at 18:10 Approved by: Misael Reyes MD on 03/26/2025 at 18:15
== END 2025-03-24 15:44 | disposition home or self-care (01) ==
LOC: CARD 15:43
PROVIDERS: PCP Nurse Practitioner; Visit Provider Internal Medicine Cardiovascular Disease
DX: Z01.818 Encounter for other preprocedural examination (principal); R94.31 Abnormal electrocardiogram [ECG] [EKG]; I49.3 Ventricular premature depolarization
CPT/HCPCS: 93306

== ENCOUNTER 2025-04-07 12:31 | Outpatient (OUT) | payer OTHER, SELFPAY ==
--- OUTSIDE RECORDS SUMMARY | 2025-04-07 12:33 | XMS_ITS | Encounter Summary ---
Author Organization [facility] Address [address] [place] [address] Care Team Providers Care Skills Trainer Name Role Phone Shen Perez MD Primary Care Provider [phone] Debbie Chavez NP Unavailable [phone] Encounter Details Date Type Department Care Team (Late st Contact Info) Description 03/26/2025 Clinisync Result Encounter [facility] External Department Unsolicited [...] week 08/25/2023 How often do you attend [facility] or hinduism services? More than 4 times per year 08/25/2023 Do you belong to any clubs o r organizations such as denominational groups, unions, fraternal or athletic groups, or [...] medical care, and heating? Patient declined 08/25/2023 [facility] Occupat ional [facility] - Occupational Stress Questionnaire Answer Date Recorded [...] Office Visit [facility] [address] [place] [address] Sophie Delarosa NP [address] [place] [address] documented as of this encounter Procedures Procedure Name Priority Date/Time Associated Diagnosis Comments CA ECHO DOPPLER COMPLETE 03/26/2025 6:15 PM EDT documented in this encounter Results * CA ECHO DOPPLER COMPLETE (03/26/2025 6:15 PM EDT) Anatomical Region Laterality Modality Other 03/26/2025 6:15 PM EDT Narrative 03/26/2025 6:16 [place] [address] Cardiology Report Signed Patient: MARTI MAHAJAN MR#: [id number] : 1955 Acct:[id number] Age/Sex: 69 / M ADM Date: 03/24/25 Loc: CARD Attending Dr: Misael Reyes M.D. Ordering Physician: Misael Reyes M.D. Date of Service: 03/24/25 Procedure(s): CA echo doppler complete Accession Number(s): [id number] cc: Sophie Delarosa NP; Misael Reyes M.D. Patient Name: MARTI MAHAJAN MR#: [id number] : 1955 Exam Date: 03/24/2025 Ordering Doctor: DR. MISAEL REYES M.D. ECHOCARDIOGRAM REPORT PROCEDURE: CA ECHO DOPPLER COMPLETE INDICATIONS: Abnormal ekg COMPARISON: None. DESCRIPTION: COMPLETE ECHOCARDIOGRAM Real-time transthoracic echocardiography with 2D, M-mode, spectral and color flow Doppler performed. QUALITY: Technical quality was adequate. LEFT VENTRICLE: Normal chamber size. Mild concentric left ventricular hypertrophy. Global left ventricular systolic function is normal without wall motion abnormalities. Calculated left ventricular ejection fraction is 61%. LV EF: 61% DIASTOLIC: Normal diastolic function. ATRIAL SEPTUM: Appears intact LEFT ATRIUM: Normal chamber size. RIGHT ATRIUM: Mild dilatation. RIGHT VENTRICLE: Normal chamber size. Normal right ventricular systolic function. TRICUSPID VALVE: Normal mobility and thickness. No stenosis with trivial regurgitation. No evidence of pulmonary hypertension.RVSP 22mmHg MITRAL VALVE: Mildly thickened with normal mobility. No evidence of mitral valve stenosis. There is no mitral annular calcification. Trivial mitral regurgitation. AORTIC VALVE: Normal trileaflet appearance. No visible sclerosis. Normal leaflet mobility. No evidence of aortic valve stenosis. No aortic regurgitation. AORTIC ROOT: Mildly dilated aortic root 3.9 cm, normal ascending aorta size 3.7 cm PULMONIC VALVE: Normal thickness and mobility. No stenosis. Trivial regurgitation. PERICARDIUM: No evidence of pericardial effusion. IVC: Collapes with inspirations. PLEURA: CONCLUSION: Mild concentric left ventricle hypertrophy Normal left ventricular systolic function without wall motion abnormalities, ejection fraction 61% Normal left ventricular diastolic function Normal right ventricular size and systolic function Normal right-sided pressures No significant valvular abnormalities Mildly dilated aortic root 3.9 cm Adult Echocardiography Procedure Report Left Ventricle LVEDD (3.7 - 5.6 cm): 4.48 cm LVESD (2.2 - 4.0 cm): 3.29 cm LVIVS thickness (0.6 - 1.2 cm): 1.35 cm LVPW thickness (0.5 - 1.0 cm): 1.37 cm e': 0.11 m/s E - e': 11.15 LVOT Max Gradient: 4.01 mm[Hg], 3.68 mm[Hg] LVOT Area (cm2): 0.98 m/s Peak Velocity (LVOT): 1.00 m/s, 0.96 m/s Mean Velocity (LVOT): 0.68 m/s LVOT Diameter 1.99 cm Left Ventricular Ejection Fraction: 60.97 % Left Atrium LA Volume Index (2D A2C): 32.56 ml/m2 Left Atrium Systolic Dimension: 4.05 cm Mitral Valve MV E to A Ratio: 1.01 Mitral Valve A-Wave Peak Velocity: 1.20 m/s Mitral Valve E-Wave Peak Velocity: 1.20 m/s Right Ventricle RV Internal Diastolic Dimension: 3.75 cm Aorta AO Root Diam: 3.82 cm Ascending Ao Diam: 3.71 cm Aortic Valve AoV Area (Peak [place]): 2.54 cm2, 2.59 cm2 AoV Area (VTI): 2.65 cm2, 2.72 cm2 Peak Velocity(Antegrade Flow): 1.19 m/s Peak Gradient(Antegrade Flow): 5.70 mm[Hg] Mean Velocity(Antegrade Flow): 0.85 m/s Mean Gradient(Antegrade Flow): 3.27 mm[Hg] Velocity Time Integral: 24.96 cm Tricuspid Valve Peak Velocity (Regurgitant Flow): 2.17 m/s, 2.13 m/s Pulmonic Valve Mean Gradient: 2.58 mm[Hg] Mean Velocity: 0.76 m/s Peak Velocity: 1.02 m/s, 0.87 m/s Peak Gradient: 4.13 mm[Hg], 3.03 mm[Hg] Right Atrium Right Atrium Systolic Pressure: 56.34 ml, 56.34 ml Dictated by: Misael Reyes MD on 03/26/2025 at 18:10 Approved by: Misael Reyes MD on 03/26/2025 at 18:15 Dictated By: Misael Reyes M.D. Signed By: 03/26/251815 DD/ 14 TD/TT: Oil Mixer: Procedure Note Radiology, Radiologist, - 03/26/2025 [place] [address] Cardiology Report Signed Patient: MARTI MAHAJAN LMR#: [id number] : 7Acct:[id number] Age/Sex: 69 / MADM Date: 03/24/25 Loc: CARD Attending Dr: Misael Reyes M.D. Ordering Physician: Misael Reyes M.D. Date of Service: 03/24/25 Procedure(s): CA echo doppler complete Accession Number(s): [id number] cc: Sophie Delarosa METER READER; Misael Reyes M.D. Patient Name: MARTI MAHAJAN MR#: [id number] : 1955 Exam Date: 03/24/2025 Ordering Doctor: DR. MISAEL REYES M.D. ECHOCARDIOGRAM REPORT PROCEDURE: CA ECHO DOPPLER COMPLETE INDICATIONS: Abnormal ekg COMPARISON: None. DESCRIPTION: COMPLETE ECHOCARDIOGRAM Real-time transthoracic echocardiography with 2D, M-mode, spectral and color flow Dopplerperformed. QUALITY: Technical quality was adequate. LEFT VENTRICLE: Normal chamber size. Mild concentric left ventricular hypertrophy. Global left ventricular systolic function is normal withoutwall motion abnormalities. Calculated left ventricular ejection fraction is61%. LV EF: 61% DIASTOLIC: Normal diastolic function. ATRIAL SEPTUM: Appears intact LEFT ATRIUM: Normal chamber size. RIGHT ATRIUM: Mild dilatation. RIGHT VENTRICLE: Normal chamber size. Normal right ventricularsystolic function. TRICUSPID VALVE: Normal mobility and thickness. No stenosis withtrivial regurgitation. No evidence of pulmonary hypertension.RVSP 22mmHg MITRAL VALVE: Mildly thickened with normal mobility. No evidence of mitral valve stenosis. There is no mitral annular calcification. Trivial mitral regurgitation. AORTIC VALVE: Normal trileaflet appearance. No visible sclerosis.Normal leaflet mobility. No evidence of aortic valve stenosis. No aortic regurgitation. AORTIC ROOT: Mildly dilated aortic root 3.9 cm, normal ascending aorta size 3.7 cm PULMONIC VALVE: Normal thickness and mobility. No stenosis. Trivial regurgitation. PERICARDIUM: No evidence of pericardial effusion. IVC: Collapes with inspirations. PLEURA: CONCLUSION: Mild concentric left ventricle hypertrophy Normal left ventricular systolic function without wall motionabnormalities, ejection fraction 61% Normal left ventricular diastolic function Normal right ventricular size and systolic function Normal right-sided pressures No significant valvular abnormalities Mildly dilated aortic root 3.9 cm Adult Echocardiography Procedure Report Left Ventricle LVEDD (3.7 - 5.6 cm): 4.48 cm LVESD (2.2 - 4.0 cm): 3.29 cm LVIVS thickness (0.6 - 1.2 cm): 1.35 cm LVPW thickness (0.5 - 1.0 cm): 1.37 cm e': 0.11 m/s E - e': 11.15 LVOT Max Gradient: 4.01 mm[Hg], 3.68 mm[Hg] LVOT Area (cm2): 0.98 m/s Peak Velocity (LVOT): 1.00 m/s, 0.96 m/s Mean Velocity (LVOT): 0.68 m/s LVOT Diameter 1.99 cm Left Ventricular Ejection Fraction: 60.97 % Left Atrium LA Volume Index (2D A2C): 32.56 ml/m2 Left Atrium Systolic Dimension: 4.05 cm Mitral Valve MV E to A Ratio: 1.01 Mitral Valve A-Wave Peak Velocity: 1.20 m/s Mitral Valve E-Wave Peak Velocity: 1.20 m/s Right Ventricle RV Internal Diastolic Dimension: 3.75 cm Aorta AO Root Diam: 3.82 cm Ascending Ao Diam: 3.71 cm Aortic Valve AoV Area (Peak [place]): 2.54 cm2, 2.59 cm2 AoV Area (VTI): 2.65 cm2, 2.72 cm2 Peak Velocity(Antegrade Flow): 1.19 m/s Peak Gradient(Antegrade Flow): 5.70 mm[Hg] Mean Velocity(Antegrade Flow): 0.85 m/s Mean Gradient(Antegrade Flow): 3.27 mm[Hg] Velocity Time Integral: 24.96 cm Tricuspid Valve Peak Velocity (Regurgitant Flow): 2.17 m/s, 2.13 m/s Pulmonic Valve Mean Gradient: 2.58 mm[Hg] Mean Velocity: 0.76 m/s Peak Velocity: 1.02 m/s, 0.87 m/s Peak Gradient: 4.13 mm[Hg], 3.03 mm[Hg] Right Atrium Right Atrium Systolic Pressure: 56.34 ml, 56.34 ml Dictated by: Misael Reyes MD on 03/26/2025 at 18:10 Approved by: Misael Reyes MD on 03/26/2025 at 18:15 Dictated By: Misael Reyes M.D. Signed By:03/26/251815 DD/ 14 TD/TT: Oil Mixer: us Generic External Data Provider [facility] Final Result documented in this encounter Visit Diagnoses Not on filedocumented in this encounter Care Teams Skills Trainer Relationship Specialty Start Date End Date Shen Perez MD [address] [place] [address] PCP - General Family Medicine 06/02/24 Debbie Chavez NP [address] [place] [address] Nurse Practitioner Family Medicine 06/02/24 documented as of this encounter
--- OUTSIDE RECORDS SUMMARY | 2025-04-07 12:33 | XMS_ITS | Encounter Summary ---
Author Organization [facility] Address [address] [place] [address] Care Team Providers Care Slasher Tender Helper Name Role Phone Shaikh MEG Carlos Primary Care Provider [phone] Shen Perez MD Primary Care Provider [phone] Debbie Chavez NP Unavailable [phone] Encounter Details Date Type Department Care Team (Late st Contact Info) Description 03/02/2024 Clinisync Result Encounter [facility] External Department Unsolicited Shaikh Carlos MD [address] [place] [address] Social History Tobacco Use Types Packs/Day Years [...] How often do you attend chur or latter-day services? More than 4 times per year 08/25/2023 Do you belong to any clubs o r organizations such as confucianism groups, unions, fraternal or athletic groups, or [...] and heating? Patient declined 08/25/2023 [facility] of Occupat ional Health - Occupational Stress [...] place to sleep or slept in a long term (including now)? No 08/25/2023 Sex and Gender [...] Visit [facility] [address] [place] [address] Sophie Delarosa NP [address] [place] [address] documented as of this encounter Procedures Procedure Name Priority Date/Time Associated Diagnosis Comments XR KNEE 3 VIEWS LEFT 03/02/2024 7:09 AM EDT documented in this encounter Results * XR knee 3 views left (03/02/2024 7:09 AM EDT) Anatomical Region Laterality Modality Lower Extremities, Knee Left Radiogra [facility] 03/02/2024 7:09 AM EDT Narrative 03/02/2024 7:11 AM EDT The [address] [address] XRay Report Signed Patient: MARTI MAHAJAN MR#: [id number] : 1955 Acct:[id number] Age/Sex: 68 / M ADM Date: 03/01/24 Loc: RAD Attending Dr: Shaikh Breanna Foster Ordering Physician: Shaikh Kristin Carlos Date of Service: 03/01/24 Procedure(s): XR knee LT 3V Accession Number(s): [id number] cc: Shaikh Kristin Carlos The [place] [id number] Patient Name: MARTI MAHAJAN MRN: [id number] date: 1955 Sex: M Assigned Patient Location: RAD Current Patient Location: Accession/Order Number: [id number] Exam Date: 03/01/2024 16:35 Report Date: 03/02/2024 07:09 At the request of: SHAIKH BREANNA Procedure: XR knee LT 3V PROCEDURE: XR knee LT 3V COMPARISON: None. HISTORY: Chronic Left knee pain M25.512 FINDINGS: BONES:No acute fracture or dislocation. Severe osteoarthritis of the anterior compartment with jnay-qc-bbyn articulation and marginal osteophyte formation SOFT TISSUES:Negative. No visible soft tissue swelling. EFFUSION:None visible. OTHER: Negative. XR/XR knee LT 3V IMPRESSION: Severe patellofemoral osteoarthritis Electronically authenticated by: MELISSA OVIEDO Date: 03/02/2024 07:09 Dictated By: Melissa Oviedo M.D. Signed By: 03/02/24 0711 DD/ 0709 TD/TT: Wind Project Manager: Procedure Note Radiology, Radiologist, MD - 03/02/[address] [address] XRay Report Signed Patient: MARTI MAHAJAN LMR#: [id number] : 1955cct:[id number] Age/Sex: 68 / MADM Date: 03/01/24 Loc: RAD Attending Dr: Shaikh Breanna Foster Ordering Physician: Shaikh Kristin Carlos Date of Service: 03/01/24 Procedure(s): XR knee LT 3V Accession Number(s): [id number] cc: Shaikh Kristin Carlos The [place] [address] Patient Name: MARTI MAHAJAN MRN: [id number] date: 1955 Sex: M Assigned Patient [facility]: [facility] Current Patient Location: Accession/Order Number: [id number] Exam Date: 03/01/2024 16:35 Report Date: 03/02/2024 07:09 At the request of: SHAIKH BREANNA Procedure: XR knee LT 3V PROCEDURE: XR knee LT 3V COMPARISON: None. HISTORY: Chronic Left knee pain M25.512 FINDINGS: BONES:No acute fracture or dislocation. Severe osteoarthritis of theanterior compartment with wcev-xa-otlt articulation and marginal osteophyteformation SOFT TISSUES:Negative. No visible soft tissue swelling. EFFUSION:None visible. OTHER: Negative. XR/XR knee LT 3V IMPRESSION: Severe patellofemoral osteoarthritis Electronically authenticated by: MELISSA OVIEDO Date: 03/02/2024 07:09 Dictated By: Melissa Oviedo M.D. Signed By:03/02/24 0711 DD/ 0709 TD/TT: Wind Project Manager: Shaikh Breanna WEAVER IMG XR PROCEDURES Final Result documented in this encounter Visit Diagnoses Not on filedocumented in this encounter Care Teams Slasher Tender Helper Relationship Specialty Start Date End Date Shaikh Carlos MD [address] [place] [address] PCP - General Internal Medicine 02/25/24 06/01/24 Shen Perez MD [address] [place] [address] PCP - General Family Medicine 06/02/24 Debbie Chavez NP [address] [place] [address] Nurse Practitioner Family Medicine 06/02/24 documented as of this encounter
--- OUTSIDE RECORDS SUMMARY | 2025-04-07 12:33 | XMS_ITS | Encounter Summary ---
Author Organization [facility] Address [address] [place] [address] Care Team Providers Care Mortgage Loan Processor Name Role Phone Shaikh MEG Carlos Primary Care Provider [phone] Shen Perez MD Primary Care Provider [phone] Debbie Chavez NP Unavailable [phone] Encounter Details Date Type Department Care Team (Late st Contact Info) Description 03/02/2024 Clinisync Result Encounter [facility] External Department Unsolicited Shaikh Carlos MD [address] [place] [address] Social History Tobacco Use Types Packs/Day Years [...] How often do you attend chur or druze services? More than 4 times per year 08/25/2023 Do you belong to any clubs o r organizations such as latter-day groups, unions, fraternal or athletic groups, or [...] medical care, and heating? Patient declined 08/25/2023 [facility] of Occupat ional Health - Occupational [...] Office Visit [facility] [address] [place] [address] Sophie Delarosa NP [address] [place] [address] documented as of this encounter Procedures Procedure Name Priority Date/Time Associated Diagnosis Comments XR SHOULDER 2+ VIEWS LEFT 03/02/2024 7:10 AM EDT documented in this encounter Results * XR shoulder 2+ views left (03/02/2024 7:10 AM EDT) Anatomical Region Laterality Modality Upper Extremities, Shoulder Left Radi ographic Imaging 03/02/2024 7:10 AM EDT Narrative 03/02/2024 7:13 AM EDT The [address] [address] XRay Report Signed Patient: MARTI MAHAJAN MR#: [id number] : 1955 Acct:[id number] Age/Sex: 68 / M ADM Date: 03/01/24 Loc: RAD Attending Dr: Shaikh Breanna Foster Ordering Physician: Shaikh Kristin Carlos Date of Service: 03/01/24 Procedure(s): XR shoulder LT min 2V Accession Number(s): [id number] cc: Shaikh Kristin Carlos The [place] [address] Patient Name: MARTI MAHAJAN MRN: [facility]:[id number] date: 1955 Sex: M Assigned Patient Location: RAD Current Patient Location: RAD Accession/Order Number: [id number] Exam Date: 03/01/2024 16:35 Report Date: 03/02/2024 [...] Signed By: 03/02/24 0713 DD/ 0710 TD/TT: Huller Operator: Procedure Note Radiology, Radiologist, MD - 03/02/2024 [place] [address] XRay Report Signed Patient: MARTI MAHAJAN LMR#: [id number] : 1955cct:[id number] Age/Sex: 68 / MADM Date: 03/01/24 Loc: RAD Attending Dr: Shaikh Breanna Foster Ordering Physician: Shaikh Kristin Carlos Date of Service: 03/01/24 Procedure(s): XR shoulder LT min 2V Accession Number(s): [id number] cc: Shaikh Kristin Carlos The [place] [id number] Patient Name: MARTI MAHAJAN MRN: [id number] date: 1955 Sex: M Assigned Patient Location: RAD Current Patient Location: RAD Accession/Order Number: [id number] Exam Date: 03/01/2024 16:35 Report Date: 03/02/2024 [...] Oviedo M.D. Signed By:03/02/24 0713 DD/ TD/TT: Huller Operator: Shaikh Breanna WEAVER IMG XR PROCEDURES Final Result documented in this encounter Visit Diagnoses Not on filedocumented in this encounter Care Teams Mortgage Loan Processor Relationship Specialty Start Date End Date Shaikh Carlos MD [address] [place] [address] PCP - General Internal Medicine 02/25/24 06/01/24 Shen Perez MD [address] [place] [address] PCP - General Family Medicine 06/02/24 Debbie Chavez NP [address] [place] [address] Nurse Practitioner Family Medicine 06/02/24 documented as of this encounter
--- OUTSIDE RECORDS SUMMARY | 2025-04-07 12:33 | XMS_ITS | Encounter Summary ---
Author Organization [facility] Address [address] [place] [address] Care Team Providers Care Violin Restorer Name Role Phone Shaikh MEG Carlos Primary Care Provider [phone] Shaikh MEG Carlos Primary Care Provider [phone] Shen Perez MD Primary Care Provider [phone] Debbie Chavez NP Unavailable [phone] Encounter Details Date Type Department Care Team (Late st Contact Info) Description 09/19/2023 [facility] [address] [place] [address] Barbara Messer NP Social History Tobacco Use [...] often do you attend chur ch or hindu services? More than 4 times per year 08/25/2023 Do you belong to any clubs o r organizations such as yazidi groups, unions, fraternal or athletic groups, or [...] medical care, and heating? Patient declined 08/25/2023 [facility] of Occupat ional Health - Occupational [...] EDT Office Visit [facility] [address] [place] [address] Sophie Delarosa NP [address] [place] [address] documented as of this encounter Visit Diagnoses Not on filedocumented in this encounter Care Teams Violin Restorer Relationship Specialty Start Date End Date Shaikh Carlos MD PCP - General Internal Medicine 09/08/22 02/24/24 Shaikh Carlos MD [address] [place] [address] PCP - General Internal Medicine 02/25/24 06/01/24 Shen Perez MD [address] [place] [address] PCP - General Family Medicine 06/02/24 Debbie Chavez NP [address] [place] [address] Nurse Practitioner Family Medicine 06/02/24 documented as of this encounter
--- OUTSIDE RECORDS SUMMARY | 2025-04-07 12:33 | XMS_ITS | Encounter Summary ---
Author Organization [facility] Address [address] [place] [address] Care Team Providers Care Clinical Programmer Name Role Phone Shen Perez MD Primary Care Provider [phone] Debbie Chavez NP Unavailable [phone] Encounter Details Date Type Department Care Team (Late st Contact Info) Description 03/14/2025 [facility] [address] [place] [address] Sophie Delarosa NP [address] [place] [address] Social History Tobacco Use Types Packs/Day Years [...] any clubs o r organizations such as episcopal groups, unions, fraternal or athletic groups, or [...] declined 08/25/2023 [facility] of Occupat ional [facility] - Occupational Stress Questionnaire Answer Date [...] Visit [facility] [address] [place] [address] Sophie Delarosa NP [address] [place] [address] documented as of this encounter Visit Diagnoses Not on filedocumented in this encounter Care Teams Clinical Programmer Relationship Specialty Start Date End Date Shen Perez MD [address] [place] [address] PCP - General Family Medicine 06/02/24 Debbie Chavez NP [address] [place] [address] Nurse Practitioner Family Medicine 06/02/24 documented as of this encounter
--- OUTSIDE RECORDS SUMMARY | 2025-04-07 12:33 | XMS_ITS | Encounter Summary ---
Author Organization [facility] Address [address] [place] [address] Care Team Providers Care Performance Architect Name Role Phone Shaikh MEG Carlos Primary Care Provider [phone] Shaikh MEG Carlos Primary Care Provider [phone] Shen Perez MD Primary Care Provider [phone] Debbie Chavez MICROFICHE CAMERA OPERATOR Unavailable [phone] Encounter Details Date Type Department Care Team (Late st Contact Info) Description 09/24/2023 Orders Only [facility] [address] [place] [address] Shaikh Carlos MD [address] [place] [address] Social History Tobacco Use Types Packs/Day Years [...] How often do you attend chur or mandaen services? More than 4 times per year [...] medical care, and heating? Patient [facility] Answer Date [...] Visit [facility] [address] [place] [address] Sophie Delarosa NP [address] [place] [address] documented as of this encounter Procedures Procedure Name Priority Date/Time Associated Diagnosis Comments MISCELLANEOUS LAB TEST Routine 09/04/2023 11:19 AM EST documented in this encounter Results * - Miscellaneous Test (09/04/2023 11:19 AM EST) Shaikh Breanna WEAVER LAB BLOOD ORDERABLES Final Resu lt documented in this encounter Visit Diagnoses Not on filedocumented in this encounter Care Teams Performance Architect Relationship Specialty Start Date End Date Shaikh Carlos MD PCP - General Internal Medicine 09/08/22 02/24/24 Shaikh Carlos MD [address] [place] [address] PCP - General Internal Medicine 02/25/24 06/01/24 Shen Perez MD [address] [place] [address] PCP - General Family Medicine 06/02/24 Debbie Chavez NP [address] [place] [address] Nurse Practitioner Family Medicine 06/02/24 documented as of this encounter
--- OUTSIDE RECORDS SUMMARY | 2025-04-07 12:33 | XMS_ITS | Encounter Summary ---
Author Organization [facility] Address [address] [place] [address] Care Team Providers Care Director Of Casino Name Role Phone Shaikh MEG Carlos Primary Care Provider [phone] Shaikh MEG Carlos Primary Care Provider [phone] Shen Perez MD Primary Care Provider [phone] Debbie Chavez NETWORK STRATEGIST Unavailable [phone] Encounter Details Date Type Department Care Team (Late st Contact Info) Description 09/17/2023 Orders Only [facility] [address] [place] [address] Shaikh Carlos MD [address] [place] [address] Social History Tobacco Use Types Packs/Day Years [...] How often do you attend chur or taoism services? More than 4 times per year 08/25/2023 Do you belong to any clubs o r organizations such as gnosticism groups, unions, fraternal or athletic groups, or [...] medical care, and heating? Patient declined [facility]23 [facility] Questionnaire Answer Date [...] Office Visit [facility] [address] [place] [address] Sophie Delarosa NP [address] [place] [address] documented as of this encounter Procedures Procedure [...] on filedocumented in this encounter Care Teams Director Of Casino Relationship Specialty Start Date End Date Shaikh Carlos MD PCP - General Internal Medicine 09/08/22 02/24/24 Shaikh Carlos MD [address] [place] [address] PCP - General Internal Medicine 02/25/24 06/01/24 hSen Perez MD [address] [place] [address] PCP - General Family Medicine 06/02/24 Debbie Chavez NP [address] [place] [address] Nurse Practitioner Family Medicine 06/02/24 documented as of this encounter
--- OUTSIDE RECORDS SUMMARY | 2025-04-07 12:33 | XMS_ITS | Clinical Summary ---
Author Organization [facility] Healthcare Address [address] [place] [address] Care Team Providers Care Plasma Specialist Name Role Phone Shen Perez MD Primary Care Provider [phone] Debbie Chavez NP Unavailable [phone] Allergies No known active allergies Medications tadalafil (Cialis) 10 MG tablet Take 20 mg by mouth. 05/20/20 23 Active aspirin 81 MG EC tabletIndications: TIA (transient ischemic attack) Take 1 tablet (81 mg) by mouth Daily 90 tablet 3 08/12/20 24 025 Active fluticasone (Flonase) 50 MCG/ACT nasal sprayIndications:A cute rhinitis Administer 1-2 sprays into each nostril Daily Shake gently. Before first use, prime pump. After use, clean tip and replace cap. 16 g 2 01/04/20 25 026 Active metoprolol succinate XL (Toprol-XL) 50 MG 24 hr tabletIndications: Primary hypertension Take 1 tablet (50 mg) by mouth Daily 90 tablet 1 01/13/20 25 025 Active atorvastatin (Lipitor) 20 MG tabletIndications: Hyperlipidemia, unspecified hyperlipidemia type Take 1 tablet (20 mg) by mouth Daily 90 tablet 1 02/24/20 25 025 Active metFORMIN (Glucophage) 500 MG tabletIndications: Prediabetes Take 1 tablet (500 mg) by mouth in the morning and 1 tablet (500 mg) in the evening. Take with meals. 180 tablet 1 02/26/20 25 025 Active tamsulosin (Flomax) 0.4 MG 24 hr capsuleIndications :BPH with urinary obstruction Take 1 capsule (0.4 mg) by mouth in the morning and 1 capsule (0.4 mg) before bedtime. 180 capsule 1 03/06/20 25 025 Active meloxicam (Mobic) 15 MG tabletIndications: Other chronic pain Take 1 tablet (15 mg) by mouth Daily 90 tablet 1 03/06/20 25 025 Active ferrous sulfate (FeroSul) 325 (65 Fe) MG tabletIndications: Iron deficiency Take 1 tablet (325 mg) by mouth in the morning. Take with meals. 90 tablet 04/04/20 25 025 Active ferrous sulfate (FeroSul) 325 (65 Fe) MG tabletIndications: Iron deficiency Take 1 tablet (325 mg) by mouth in the morning. Take with meals. 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 03/28/20 25 Abnormal EKG 03/16/2025 Hydrocele in adult 12/17/2024 Screening for prostate cancer 12/13/2024 Overview (12/20/2024): PSA: 1.01 12/18/24 Swelling of left half of scrotum 12/13/2024 Assessment & Plan (12/13/2024 10:30 AM EDT): Suspected inguinal hernia with hydrocele Check US [facility] MAR (obstructive sleep apnea) 12/13/2024 Assessment [...] Company that supplies your machine and tubing/filters etc:[employer] that manages your MAR: Addie Acute [...] Encounters Date Type Department Care Team Description 04/05/2025 Abstract [facility] [address] [place] [address] Sophie Delarosa NP 04/04/2025 Refill [facility] [address] [place] [address] Shen Perez MD Iron deficiency 03/26/2025 Clinisync Result Encounter [facility] External Department Unsolicited Provider, Generic External Data 03/16/2025 Telephone [facility] [address] [place] [address] Sophie Delarosa NP 03/16/2025 Orders Only [facility] [address] [place] [address] Sophie Delarosa NP Abnormal EKG (Primary Dx) 03/14/2025 Clinisync Result Encounter [facility]OM[facility] External Department Unsolicited Provider, Generic External Data 03/14/2025 Orders Only [facility] [address] [place] [address] 03/14/2025 Abstract [facility] [address] [place] [address] Sophie Delarosa NP 03/14/2025 Clinisync Result Encounter [facility] External Department Unsolicited Provider, Generic External Data 03/06/2025 Refill [facility] [address] [place] [address] Shen Perez MD Other chronic pain 03/05/2025 Refill [facility] [address] [place] [address] Shen Perez MD BPH with urinary obstruction 02/25/2025 Refill [facility] [address] [place] [address] Shen Perez MD Prediabetes 02/23/2025 Refill [facility] [address] [place] [address] Shen Perez MD Hyperlipidemia, unspecified hyperlipidemia type 02/09/2025 Clinisync Result Encounter NOMS External Department Unsolicited Provider, Generic External Data 01/12/2025 Refill [facility] [address] [place] [address] Shen Perez MD Primary hypertension from Last 3 Months Immunizations Immunization Administration Dates Next Due Influenza, High Dose Seasonal, Preservative Free 07/10/2024 Influenza, Seasonal, Quadrivalent, Adjuvanted ,06/15/2022 Influenza, injectable, MDCK, preservative free, quadrivalent 07/17/2018 Influenza, injectable, quadrivalent, preservativ e free 06/30/2020,07/29/2019 Influenza, seasonal, injectable 06/08/2024 Novel [id number]-[id number], preservative-free 09/18 Pneumococcal Conjugate PCV 20 09/13/2023 [...] week 08/25/2023 How often do you attend [facility] or zoroastrianism services? More than 4 times per year 08/25/2023 Do you belong to any clubs o r organizations such as zoroastrianism groups, unions, fraternal or athletic groups, or [...] medical care, and heating? Patient declined 08/25/2023 [facility] of Occupat ional Health - Occupational Stress [...] 2:20 PM EDT Office Visit [facility] [address] [place] [address] Sophie Delarosa, DAYNE [address] [place] [address] Health Maintenance Due Date Last Done Comments [...] ECHO DOPPLER COMPLETE 03/26/2025 6:15 PM EDT ECG 12-LEAD Routine 03/14/2025 10:18 AM EDT [facility] APTT Routine 03/14/2025 8:52 AM EDT SRMCOH PROTHROMBIN TIME INR W/O COUM Routine 03/14/2025 8:52 AM EDT ALL CBC WITH AUTO DIFF Routine 03/14/2025 8:52 AM EDT ALL BASIC METABOLIC PANEL Routine 03/14/2025 8:52 AM EDT ECG 12-LEAD 03/14/2025 6:49 AM EDT US SCROTUM 02/09/2025 6:42 PM EDT from Last 3 Months Results * CA ECHO DOPPLER COMPLETE (03/26/2025 6:15 PM EDT) Anatomical Region Laterality Modality Other 03/26/2025 6:15 PM EDT Narrative 03/26/2025 6:16 [place] [address] Cardiology Report Signed Patient: MARTI MAHAJAN MR#: [id number] : 1955 Acct:[id number] Age/Sex: 69 / M ADM Date: 03/24/25 Loc: CARD Attending Dr: Misael Reyes M.D. Ordering Physician: Misael Reyes M.D. Date of Service: 03/24/25 Procedure(s): CA echo doppler complete Accession Number(s): [id number] cc: Sophie Delarosa SWITCH ENGINEER; Misael Reyes M.D. Patient Name: MARTI MAHAJAN MR#: [id number] : 1955 Exam Date: 03/24/2025 Ordering Doctor: [...] M.D. Signed By: 03/26/251815 DD/ 14 TD/TT: Manager Retirement: Procedure Note Radiology, Radiologist, MD - 03/26/2025 [place] [address] Cardiology Report Signed Patient: MATRI MAHAJAN LMR#: [id number] : 1955cct:[id number] Age/Sex: 69 / MADM Date: 03/24/25 Loc: CARD Attending Dr: Misael Reyes M.D. Ordering Physician: Misael Reyes M.D. Date of Service: 03/24/25 Procedure(s): CA echo doppler complete Accession Number(s): [id number] cc: Sophie Delarosa SWITCH ENGINEER; Misael Reyes M.D. Patient Name: MARTI MAHAJAN MR#: [id number] : 1955 Exam Date: 03/24/2025 Ordering Doctor: [...] Reyes M.D. Signed By:03/26/251815 DD/ 14 TD/TT: Manager Retirement: Generic External Data Provider CLINISYNC IMAGING Final Result * ECG 12 lead (03/14/2025 10:18 AM EDT) [facility] ECG ORDERABLES Final Result * SRMCOH [...] Data Provider CLINISYNC F inal Result [facility] * [facility]CF APTT (03/14/2025 8:52 AM EDT) PARTIAL THROMBOPLASTIN TIME 25.4 22.3 - 36.2 sec [facility] 03/14/2025 8:52 AM EDT 03/14/2025 9:00 AM EDT Narrative CLINISYNC - 03/14/2025 9:28 AM EDT Generic External Data Provider CLINGOMEZNC Marion carmona Result Performing Organization Address City/[facility]/ZIP Co de Phone Number [facility] * (ABNORMAL) ALL CBC WITH AUTO DIFF (03/14/2025 8:52 AM EDT) Pathologist [facility] TB WBC 10.9 4.0 - 11.0 10 3/uL [facility] TB RBC 4.79 4.70 - 6.10 10 6/uL [facility] TB HGB 13.9(L) 14.0 - 18.0 g/dL TB TB HCT 41.8(L) 42.0 - 54.0 % TB TB MCV 87.3 80.0 - 94.0 fL TB TB MCH 29.0 25.9 - 34.0 pg TBH TB MCHC 33.3 29.9 - 35.2 g/dL TB TB RDW 14.6 11.0 - 15.0 % TB TB PLT 266 150 - 450 10 [...] Data Provider CLINISYNC F inal Result [facility] * (ABNORMAL) ALL BASIC METABOLIC PANEL (03/14/2025 [...] 0.70 - 1.30 mg/dL TBH TBH EGFR-AF ZAMBIAN >60 >=60 mL/min/1.7 3m 2 TBH TBH EGFR-NON AF ZAMBIAN >60 >=60 mL/min/1.7 3m 2 TBH BUN CREATININE RATIO 26.1 TBH CALCIUM 9.1 8.5 - 10.1 mg/dL TB 03/14/2025 8:52 AM EDT 03/14/2025 9:00 AM EDT Narrative CLINISYNC - 03/14/2025 9:18 AM EDT Generic External Data Provider CLINISYNC F inal Result CLINISYNC [facility] * ECG 12-LEAD (03/14/2025 6:49 AM EDT) Anatomical Region Laterality Modality Other 03/14/2025 6:49 AM EDT Narrative 03/14/2025 8:31 [place] [address] Electrocardiograph Report Signed Patient: MARTI MAHAJAN MR#: [id number] : 1955 Acct:[id number] Age/Sex: 69 / M ADM Date: 03/14/25 Loc: PST Attending Dr: Neri Hirsch M.D. Ordering Physician: Neri Hirsch M.D. Date of Service: 03/14/25 Procedure(s): ECG 12 lead Accession Number(s): [id number] cc: The [facility] Test Date: 2025-03-14 Pat Name: MARTI HARRINGTONP Department: Room: - Gender: Male Knowledge Manager: : 1955 Requested By: NERI HIRSCH Order Number: [id number] Reading MD: MARTI MIKE M.D. Measurements Intervals [place] Rate: 76 P: 153 [place]: 195 QRS: -21 QRSD: 115 T: 150 [...] MIKE Signed By: 03/14/252030 DD/ 8 TD/TT: Manager Retirement: Procedure Note Radiology, Radiologist, MD - 03/14/[address] [address] Electrocardiograph Report Signed Patient: MARTI MAHAJAN LMR#: [id number] : 1955cct:[id number] Age/Sex: 69 / MADM Date: 03/14/25 Loc: PST Attending Dr: Neri Hirsch M.D. Ordering Physician: Neri Hirsch M.D. Date of Service: 03/14/25 Procedure(s): ECG 12 lead Accession Number(s): [id number] cc: The [facility] Test Date: 2025-03-14 Pat Name: MARTI MAHAJAN Department: Room: - Gender: Male Knowledge Manager: : 1955 Requested By: NERI HIRSCH Order Number: [id number] Reading MD: MARTI MIKE M.D. Measurements Intervals [place]inger Rate: 76 P: 153 [place]: 195 QRS: -21 QRSD: 115 T: 150 [...] MARTI MIKE Signed By:03/14/252030 DD/ 8 TD/TT: Manager Retirement: us Generic External Data Provider CLINISYNC IMAGING Final Result * US scrotum (02/09/2025 6:42 PM EDT) Anatomical Region Laterality Modality Body Ultrasound 02/09/2025 6:42 PM EDT Narrative 02/10/2025 9:50 AM EDT The [address] [address] Ultrasound Report Signed Patient: MARTI MAHAJAN MR#: [id number] : 1955 Acct:[id number] Age/Sex: 69 / M ADM Date: 02/09/25 Loc: US Attending Dr: Neri Hirsch M.D. Ordering Physician: Neri Hirsch M.D. Date of Service: 02/09/25 Procedure(s): US scrotum Accession Number(s): [id number] cc: Sophie Delarosa NP; Neri Hirsch M.D. The [place] [id number] Patient Name: MARTI MAHAJAN MRN: [facility]:[id number] date: 1955 Sex: M Assigned Patient Location: US Current Patient Location: US Accession/Order Number: [id number] Exam Date: 02/09/2025 18:40 Report Date: 02/09/2025 [...] Rudolph M.D. 02/09/2025 6:42 PM Dictation Location: [place] [address] Electronically authenticated by: [id number] Y Date: 02/09/2025 18:42 Dictated By: Clinton Rudolph D.O. Signed By: 02/10/25 0950 DD/ 1842 TD/TT: Manager Retirement: Procedure Note Radiology, Radiologist, - 02/10/2025 [place] [address] Ultrasound Report Signed Patient: MARTI MAHAJAN LMR#: [id number] : 1955cct:[id number] Age/Sex: 69 / MADM Date: 02/09/25 Loc: US Attending Dr: Neri Hirsch M.D. Ordering Physician: Neri Hirsch M.D. Date of Service: 02/09/25 Procedure(s): US scrotum Accession Number(s): [id number] cc: Sophie Delarosa SWITCH ENGINEER; Neri Hirsch M.D. [place] [id number] Patient Name: MARTI MAHAJAN MRN: [facility]:[id number] date: 1955 Sex: M Assigned Patient Location: US Current Patient Location: US Accession/Order Number: [id number] Exam Date: 02/09/2025 18:40 Report Date: 02/09/2025 [...] Rudolph M.D. 02/09/2025 6:42 PM Dictation Location: [place] [address] Electronically authenticated by: [id number] Y Date: 8:42 Dictated By: Clinton Rudolph D.O. Signed By:02/10/25 0950 DD/ 184 TD/TT: Manager Retirement: us Generic External Data Provider IMG US PROCEDURES Final Result from Last 3 Months Insurance [facility] Care Teams Plasma Specialist Relationship Specialty Start Date End Date Shen Perez MD [address] [place] [address] PCP - General Family Medicine 06/02/24 Debbie Chavez NP [address] [place] [address] Nurse Practitioner Family Medicine 06/02/24
--- OUTSIDE RECORDS SUMMARY | 2025-04-07 12:33 | XMS_ITS | Encounter Summary ---
Author Organization [facility] Address [address] [place] [address] Care Team Providers Care Salad Chef Name Role Phone Shen Perez MD Primary Care Provider [phone] Debbie Chavez NP Unavailable [phone] Encounter Details Date Type Department Care Team (Late st Contact Info) Description 04/05/2025 Abstract [facility] [address] [place] [address] Sophie Delarosa NP [address] [place] [address] Social History Tobacco Use Types Packs/Day Years [...] How often do you attend chur or jehovah's witness services? More than 4 times per year [...] medical care, and heating? Patient declined 08/25/2023 [facility] of Occupat ional [facility] - Occupational Stress Questionnaire Answer Date Recorded [...] Visit [facility] [address] [place] [address] Sophie Delarosa NP [address] [place] [address] documented as of this encounter Visit Diagnoses Not on filedocumented in this encounter Care Teams Salad Chef Relationship Specialty Start Date End Date Shen Perez MD [address] [place] [address] PCP - General Family Medicine 06/02/24 Debbie Chavez NP [address] [place] [address] Nurse Practitioner Family Medicine 06/02/24 documented as of this encounter
--- OUTSIDE RECORDS SUMMARY | 2025-04-07 12:33 | XMS_ITS | Encounter Summary ---
Author Organization [facility] Address [address] [place] [address] Care Team Providers Care Tufting Machine Fixer Name Role Phone Shaikh MEG Carlos Primary Care Provider [phone] Shaikh MEG Carlos Primary Care Provider [phone] Shen Perez MD Primary Care Provider [phone] Debbie Chavez CHAIRMAN PRESIDENT AND CHIEF EXECUTIVE OFFICER Unavailable [phone] Reason for Visit * Reason Comments Med Refill Encounter Details Date Type Department Care Team (Late st Contact Info) Description 11/17/2023 [facility] [address] [place] [address] Shaikh Carlos MD [address] [place] [address] Hyperlipidemia, unspecified hyperlipidemia type (Primary Dx) Social [...] any clubs o r organizations such as scientologist groups, unions, fraternal or athletic groups, or [...] medical care, and heating? Patient declined 08/25/2023 [facility]at [facility] Health - Occupational Stress [...] place to sleep or slept in a fdc (including now)? No 08/25/2023 Sex and Gender [...] Visit [facility] [address] [place] [address] Sophie Delarosa NP [address] [place] [address] documented as of this encounter Visit Diagnoses Diagnosis Hyperlipidemia, unspecified hyperlipidemia type- Primary documented in this encounter Care Teams Tufting Machine Fixer Relationship Specialty Start Date End Date Shaikh Carlos MD PCP - General Internal Medicine 09/08/22 02/24/24 Shaikh Carlos MD [address] [place] [address] PCP - General Internal Medicine 02/25/24 06/01/24 Shen Perez MD [address] [place] [address] PCP - General Family Medicine 06/02/24 Debbie Chavez NP [address] [place] [address] Nurse Practitioner Family Medicine 06/02/24 documented as of this encounter
--- OUTSIDE RECORDS SUMMARY | 2025-04-07 12:33 | XMS_ITS | Clinical Summary ---
Author Organization [facility] Address [address] [place] [address] Care Team Providers Care Golf Ball Trimmer Name Role Phone Sophie Delarosa MD Primary Care Provider [phone] Allergies No known active allergies Medications metFORMIN [...] Encounters Date Type Department Care Team Description 03/28/2025 Orders Only [facility] [address] [facility] [place] [address] Alyssa Anguiano MD 03/18/2025 11:00 AM EDT Office Visit [facility] [address] [facility] [place] [address] Mallory Reyes MD Preoperative evaluation to rule out surgical contraindication (Primary Dx); Abnormal EKG; PVC (premature ventricular contraction); Primary hypertension; TIA (transient ischemic attack); Type 2 diabetes mellitus without complication, without long-term current use of insulin ([facility]); Obesity (BMI 30-39.9); Prediabetes; Pure hypercholesterolemia 03/18/2025 Orders Only [facility] [address] [place] [address] Alyssa Anguiano MD from Last 3 Months Family History Medical [...] on patient's age to complete this topic Procedures Procedure Name Priority Date/Time Associated Diagnosis Comments COMPLETE TRANSTHORACIC ECHO (TTE) W/WO IMAGING AGENT, STRAIN, 3D, BUBBLE STUDY Routine 03/24/2025 10:21 AM EDT from Last 3 Months Results * Complete Echo (TTE) w/wo Imaging Agent, Strain, 3D, Bubble Study (03/24/2025 10:21 AM EDT) Anatomical Region Laterality Modality Ultrasound us Historical Provider MD [facility] ECHO PROCEDURES Final Result from Last 3 Months Insurance CIG Care Teams Golf Ball Trimmer Relationship Specialty Start Date End Date Sophie Delarosa MD [address] [place] [address] PCP - General Nurse Practitioner 03/16/25
--- OUTSIDE RECORDS SUMMARY | 2025-04-07 12:33 | XMS_ITS | Encounter Summary ---
Author Organization [facility] Address [address] [place] [address] Care Team Providers Care Bulk Intake Worker Name Role Phone Shen Perez MD Primary Care Provider [phone] Debbie Chavez NP Unavailable [phone] Encounter Details Date Type Department Care Team (Late st Contact Info) Description 03/14/2025 Orders Only [facility] [address] [place] [address] Social History Tobacco Use Types Packs/Day Years [...] How often do you attend chur or rastafarian services? More than 4 times per year 08/25/2023 Do you belong to any clubs o r organizations such as judaism groups, unions, fraternal or athletic groups, or [...] medical care, and heating? Patient declined 08/25/2023 [facility] of Occupat ional Health - Occupational Stress [...] Visit [facility] [address] [place] [address] Sophie Delarosa NP [address] [place] [address] documented as of this encounter Procedures Procedure Name Priority Date/Time Associated Diagnosis Comments ECG 12-LEAD Routine 03/14/2025 10:18 AM EDT documented in this encounter Results * ECG 12 lead (03/14/2025 10:18 AM EDT) [facility] ECG ORDERABLES Final Result documented in this encounter Visit Diagnoses Not on filedocumented in this encounter Care Teams Bulk Intake Worker Relationship Specialty Start Date End Date Shen Perez MD [address] [address] PCP - General Family Medicine 06/02/24 Debbie Chavez NP [address] [place] [address] Nurse Practitioner Family Medicine 06/02/24 documented as of this encounter
--- OUTSIDE RECORDS SUMMARY | 2025-04-07 12:33 | XMS_ITS | Clinical Summary ---
Author Organization [facility] Address [id number] [address] [place] [address] Care Team Providers Care Workers Compensation Examiner Name Role Phone Shaikh MEG Carlos Primary Care Provider [phone] Allergies No known active allergies Medications clopidogreL [...] Devices Not on file Insurance Care Teams Workers Compensation Examiner Relationship Specialty Start Date End Date FawShaikh mandel MD PCP - General Internal Medicine 02/27/23
--- OUTSIDE RECORDS SUMMARY | 2025-04-07 12:33 | XMS_ITS | Encounter Summary ---
Author Organization [facility] Address [id number] [address] [place] [address] Care Team Providers Care Truck Driver Flatbed Name Role Phone Shaikh MEG Carlos Primary Care Provider [phone] Encounter Details Date Type Department Care Team (Late st Contact Info) Description 09/28/2021 Orders Only [facility] [address] [place] [address] Oralia Sevilla, MANA Preop testing [...] Specimen Naso Pharynx 10/06/2021 9:18 PM EST [facility] Sent to Testing to be performed at [facility]. 10/06/2021 9:18 PM EST [facility] Report to Follow. 10/06/2021 9:18 PM EST [facility] Nasopharyngeal structure / Unknown 10/06/2021 10:57 AM EST 10/06/2021 9:14 PM EST us Anahi Yepez MD MICROBIOLOGY - GENERAL ORDE BHUMI Final Result [place] [facility] [address] [address] [place] [address] documented in this encounter Visit Diagnoses Diagnosis Preop testing- Primary Unspecified pre-operative examination documented in this encounter Additional Health Concerns Infection Onset Date Last Indicated Resolved Time COVID-19 Rule-Out 10/29/2021 10/29/2021 10/29/2021 7:38 PM EST COVID-19 Rule-Out 11/19/2021 11/19/2021 11/19/2021 9:42 PM EDT documented as of this encounter Care Teams Truck Driver Flatbed Relationship Specialty Start Date End Date Shaikh Carlos MD PCP - General Internal Medicine 02/27/23 documented as of this encounter
--- OUTSIDE RECORDS SUMMARY | 2025-04-07 12:33 | XMS_ITS | Encounter Summary ---
[id number] [address] [place] [address] Care Team Providers Care Core Layer Machine Operator Name Role Phone Shaikh MEG Carlos Primary Care Provider [phone] Encounter Details Date Type Department Care Team (Late st Contact Info) Description 11/06/2021 Orders Only [facility] [address] [place] [address] Oralia Sevilla RN Preop testing [...] documented as of this encounter Care Teams Core Layer Machine Operator Relationship Specialty Start Date End Date Shaikh Carlos MD PCP - General Internal Medicine 02/27/23 documented as of this encounter
--- OUTSIDE RECORDS SUMMARY | 2025-04-07 12:34 | XMS_ITS | Encounter Summary ---
Author Organization [facility] Address [address] [place] [address] Care Team Providers Care Licensed Occupational Therapy Assistant Name Role Phone Shen Perez MD Primary Care Provider [phone] Debbie Chavez SEAL DELIVERY VEHICLE TEAM TECHNICIAN Unavailable [phone] Reason for Visit * Reason Onset Date Comments Med Refill 04/04/2025 Encounter Details Date Type Department Care Team ([facility] st Contact Info) Description 04/04/2025 Refill [facility] [address] [place] [address] Shen Perez MD [address] [place] [phone] Iron deficiency Social History Tobacco Use Types Packs/Day Years [...] often do you attend chur ch or synagogue services? More than 4 times per year [...] medical care, and heating? Patient declined 08/25/2023 [facility] - [...] place to sleep or slept in a care home (including now)? No 08/25/2023 Sex and [...] Office Visit [facility] [address] [place] [id number] Sophie Delarosa NP [address] [place] [phone] documented as of this encounter Visit Diagnoses Diagnosis Iron deficiency Disorders of iron metabolism documented in this encounter Care Teams Licensed Occupational Therapy Assistant Relationship Specialty Start Date End Date Shen Perez MD [address] [place] [phone] PCP - General Family Medicine 06/02/24 Debbie Chavez NP [address] [place] [id number] Nurse Practitioner Family Medicine 06/02/24 documented as of this encounter
== END 2025-04-07 12:32 | disposition home or self-care (01) ==
LOC: PST 12:31
PROVIDERS: PCP Nurse Practitioner; Visit Provider Urology
DX: Z01.818 Encounter for other preprocedural examination (principal); N43.3 Hydrocele, unspecified

== ENCOUNTER 2025-04-14 07:26 | Day surgery (SDC) | payer OTHER, SELFPAY ==
[2025-04-14] VITALS (9 sets, daily range): BP systolic 111–154; BP diastolic 61–87; PULSE 70–84; TEMP 35.7–36.4; O2SAT 94–98; BMI 31.1
--- NOTE | 2025-04-14 08:00 | PC.NURSE ---
bruising on bilateral arms
[2025-04-14] MEDS: CEFAZOLIN SODIUM 2 GM/50 ML D5W PREMIX IV (08:47)
[2025-04-14] MEDS: MINERAL OIL LIGHT STERILE 10 ML VIAL TOPICAL (09:52)
[2025-04-14] MEDS: BACITRACIN OINTMENT 28.4 GM TUBE 1 APPLIC TOPICAL (10:11)
--- NOTE | 2025-04-14 10:13 | P.URON_ITS ---
Urology Surgery Operative Note Operative Note Procedure Date: 04/14/25 Time Out Performed: yes Pre-op Diagnosis: Left hydrocele Post-op Diagnosis: same as pre-op Procedures performed: 1. Left hydrocelectomy Anesthesia: MAYURI Primary Surgeon: Neri Hirsch Complications: None Estimated blood loss (mL): 5 Findings: Large left hydrocele Specimens: Left hydrocele sac Drains: None Indications for Procedures: This gentleman has a large left hydrocele which is bothersome for his daily activities. He is desirous of left hydrocelectomy. He has signed an informed consent after risks were explained. Some of these risks include bleeding, infection, anesthesia, recurrence of hydrocele and scrotal hematoma to name a few. Detailed description of Procedure: The patient was brought to the operating room and kept on the operating room table in the supine position. Timeout was done by all parties in the room. We all agreed upon the patient's identification and the planned procedures for this patient. SCDs were placed on his lower extremities and turned on and functioning during the entire case. General endotracheal anesthesia was then administered. His genitalia were sterilely prepped and draped in the usual fashion. I started by making a left transverse hemiscrotal incision with a 15 blade scalpel. Sharp dissection was carried down through the scrotal layers with the needle tip Bovie cautery. I then sharply and bluntly freed up the attachments of the scrotal contents to the left hemiscrotum. I then was able to deliver the contents through the incision. I sharply and bluntly freed up the rest of the scrotal contents and up to the spermatic cord. At this time I then sharply cut into the tense blue hydrocele sac. The sac was opened in a cephalad and caudad direction. All of the edges were tagged with hemostats. Several 100 cc of straw-colored fluid were aspirated from the sac. The testicle and epididymis appeared viable. I then resected all of the redundant sac with the Bovie cautery and this was sent for permanent sections. Any small bleeders were coagulated with the Bovie cautery. I then cauterized all of the remaining edges of the sac thus maintaining perfect hemostasis. Any tiny dartos bleeders were coagulated similarly. We irrigated the testicle and spermatic cord and scrotum. Once perfect hemostasis was verified we then placed the testicle and epididymis back into the left hemiscrotum in the proper anatomic orientation. We then closed the dartos layer with 3-0 Vicryl in a running fashion. The scrotal skin was closed with 4-0 Vicryl in a running fashion. Bacitracin ointment was applied over the incision. Sterile fluffs were placed and a scrotal support was then applied. The anesthetic was then reversed. He was then transferred to a [facility] bed and wheeled to PACU in stable condition.
--- NOTE | 2025-04-14 11:35 | PC.NURSE ---
Up to bathroom and voids clear yellow without difficulty
== END 2025-04-14 11:37 | disposition home or self-care (01) ==
LOC: SURGOUT 07:30
PROVIDERS: PCP Nurse Practitioner; Visit Provider Urology
PROC: (CPT 920; principal; 2025-04-14 08:30)
DX: N43.3 Hydrocele, unspecified (principal); I10 Essential (primary) hypertension; E11.9 Type 2 diabetes mellitus without complications; Z79.01 Long term (current) use of anticoagulants; Z87.442 Personal history of urinary calculi; B40.1 Chronic pulmonary blastomycosis; M19.90 Unspecified osteoarthritis, unspecified site; Z86.73 Personal history of transient ischemic attack (TIA), and cerebral infarction without residual deficits; N52.9 Male erectile dysfunction, unspecified
CPT/HCPCS: 55040; 36415; 82948; 88304; J0690; J1100; J2250; J2371; J2405; J2704; J3010

== ENCOUNTER 2025-06-03 15:36 | Emergency (ER) | payer OTHER, SELFPAY ==
[2025-06-03 15:43] VITALS: BP 158/76; PULSE 90; TEMP 36.7; O2SAT 97; BMI 32.3
--- NOTE | 2025-06-03 15:54 | XR_ITS ---
The [address] [address] Patient Name: MARTI MORGAN MRN: [id number] date: 1955 Sex: M Assigned Patient Location: ER Current Patient Location: ED.MAIN Accession/Order Number: [id number] Exam Date: 06/03/2025 16:20 Report Date: 06/03/2025 16:31 At the request of: BENEDICTO CALVERT MD Procedure: XR chest 1V Single frontal view chest CLINICAL HISTORY: CP COMPARISON: 12/31/2019 Unremarkable cardiomediastinal. Minimal hazy bibasilar atelectasis. Otherwise no focal disease effusion or pneumothorax. XR/XR chest 1V IMPRESSION: Bibasilar atelectasis. No definite acute airspace disease. Impression dictated by: Yannick Chong M.D. 06/03/2025 4:31 PM Dictation Location: [place] [address] Electronically authenticated by: [id number] Y Date: 06/03/2025 16:31
--- NOTE | 2025-06-03 15:56 | ED.GENADUL1 ---
HPI HPI - General Adult General Chief complaint: Chest Pain Stated complaint: WEAKNESS, TIGHTNESS IN CHEST Time Seen by Provider: 06/03/25 15:46 Source: patient Mode of arrival: walk-in History of Present Illness HPI narrative: 70-year-old male presented to the emergency department for chest pressure. He has been having it nearly every day for the past 2 to 3 weeks. He has had it continuously for 18 hours. It does not seem to radiate and he is not short of breath and does not have back pain. He states he has been under a lot of stress recently and is worried it might be anxiety. He wanted to make sure his heart is okay. He states he had a stress test a few years ago that was negative. No fever or cough. Related Data Home Medications ?Medication ?Instructions ?Recorded ?Confirmed aspirin 81 mg tablet,delayed 81 mg PO DAILY 03/14/25 06/03/25 release atorvastatin 20 mg tablet 20 mg PO DAILY 03/14/25 06/03/25 ferrous sulfate 325 mg (65 mg 325 mg PO DAILY 03/14/25 06/03/25 iron) tablet (FeroSul) meloxicam 15 mg tablet 15 mg PO DAILY 03/14/25 06/03/25 metformin 500 mg tablet 500 mg PO BID 03/14/25 06/03/25 metoprolol succinate 50 mg 50 mg PO QPM 03/14/25 06/03/25 tablet,extended release 24 hr tadalafil 10 mg tablet (Cialis) 10 mg PO DAILY PRN sexual activity 03/14/25 06/03/25 tamsulosin 0.4 mg capsule 0.4 mg PO Q24H 03/14/25 06/03/25 Allergies Allergy/AdvReac Type Severity Reaction Status Date / Time No Known Drug Allergies Allergy Verified 04/07/25 12:25 Review of Systems ROS Narrative A ten point review of systems is negative except as noted above. [facility] Medical History (Updated 06/03/25 @ 17:33 by Aman Marr MD) Erectile dysfunction ?N52.9 - Male erectile dysfunction, unspecified (ICD-10) BPH with obstruction/lower urinary tract symptoms ?N40.1 - Benign prostatic hyperplasia with lower urinary tract symptoms (ICD-10) ?N13.8 - Other obstructive and reflux uropathy (ICD-10) Hip pain ?M25.559 - Pain in unspecified hip (ICD-10) Arthritis ?M19.90 - Unspecified osteoarthritis, unspecified site (ICD-10) Anemia ?D64.9 - Anemia, unspecified (ICD-10) MAR on CPAP ?G47.33 - Obstructive sleep apnea (adult) (pediatric) (ICD-10) Sleep apnea ?G47.30 - Sleep apnea, unspecified (ICD-10) Transient ischemic attack ?G45.9 - Transient cerebral ischemic attack, unspecified (ICD-10) Hydrocele ?N43.3 - Hydrocele, unspecified (ICD-10) Hypertension ?I10 - Essential (primary) hypertension (ICD-10) High cholesterol ?E78.00 - Pure hypercholesterolemia, unspecified (ICD-10) Prediabetes ?R73.03 - Prediabetes (ICD-10) Surgical History (Updated 03/14/25 @ 08:37 by Cydney Harrington NP) History of colonoscopy ?Z98.890 - Other specified postprocedural states (ICD-10) Family History (Updated 03/14/25 @ 08:37 by Cydney Harrington NP) Other Family history of diabetes mellitus Family history of heart disease Family history of hypertension Family history of myocardial infarction Social History (Updated 03/14/25 @ 08:32 by Cydney Harrington NP) Within the past year, how often did you have a drink containing alcohol: never Score interpretation: A score less than 4 is consistent with normal alcohol consumption. Smoking status: Never smoker Non-prescribed substance use: denies use Previous occupational history: [employer] Highest level of school completed/degree received: high school graduate Exam Narrative Exam Narrative: Nurses note and vital signs reviewed and patient is not hypoxic. General:The patient appears well and in no apparent distress.Patient is resting comfortably on cart. Skin:Warm, dry, no pallor noted.There is no rash noted. Head:Normocephalic, atraumatic Eye: Normal conjunctiva, no drainage Ears, Nose, Mouth, and Throat: oral mucosa is moist. Nares patent. Cardiovascular:Regular Rate and Rhythm Respiratory:Patient is in no distress, no accessory muscle use, lungs are clear to auscultation, no wheezing, rales or rhonchi Back:non-tender GI: Left and nontender Musculoskeletal: The patient has no evidence of calf tenderness, no pitting edema, symmetrical pulses noted bilaterally Neurological:A&O, normal speech Psychiatric:Cooperative Constitutional Vital Signs, click to edit/add: Last Vital Signs Temp 98.0 F 06/03/25 15:43 Pulse 82 06/03/25 17:08 Resp 18 06/03/25 17:08 BP 129/69 06/03/25 17:08 Pulse Ox 97 06/03/25 17:08 O2 Del Method Room Air 06/03/25 15:43 Course Vital Signs Vital signs: Vital Signs Temperature 98.0 F 06/03/25 15:43 Pulse Rate 90 06/03/25 15:43 Respiratory Rate 22 H 06/03/25 15:43 Blood Pressure 158/76 H 06/03/25 15:43 Pulse Oximetry 97 06/03/25 15:43 Oxygen Delivery Method Room Air 06/03/25 15:43 Temperature 98.0 F 06/03/25 15:43 Pulse Rate 82 06/03/25 17:08 Respiratory Rate 18 06/03/25 17:08 Blood Pressure 129/69 06/03/25 17:08 Pulse Oximetry 97 06/03/25 17:08 Oxygen Delivery Method Room Air 06/03/25 15:43 Medical Decision Making MDM Narrative Medical decision making narrative: His workup is negative. He has slight ST depression in V4, V5, and V6 on 2 EKGs today and this is unchanged from an EKG taken March 14 of this year. 2 sets of troponin are negative and his symptoms have resolved completely. At this point I do not suspect acute coronary syndrome. He has been under a great deal of stress recently and is retiring 4 days. Will follow-up with his PCP and was advised to return to the emergency department if symptoms worsen. Treatment diagnosis and follow-up were discussed with the patient and his family. Differential Diagnosis Differential Diagnosis: STEMI, NSTEMI, anxiety Lab Data Lab results reviewed: Yes I reviewed the patient's lab results Labs: Lab Results 06/03/25 06/03/25 Range/Units 15:50 16:59 WBC 10.8 (4.0-11.0) 10^3/uL RBC 4.67 L (4.70-6.10) 10^6/uL Hgb 13.8 L (14.0-18.0) g/dL Hct 40.9 L (42.0-54.0) % MCV 87.6 (80.0-94.0) fL MCH 29.6 (25.9-34.0) pg MCHC 33.7 (29.9-35.2) g/dL RDW 14.0 (11.0-15.0) % Plt Count 285 (150-450) 10^3/uL MPV 10.0 (9.5-13.5) fL Neut % (Auto) 75.4 H (43.0-75.0) % Lymph % (Auto) 13.1 L (20.5-60.0) % Harper % (Auto) 7.8 (1.7-12.0) % Eos % (Auto) 2.7 (0.9-7.0) % Baso % (Auto) 0.8 (0.2-2.0) % Neut # (Auto) 8.1 H (1.4-6.5) 10^3/uL Lymph # (Auto) 1.4 (1.2-3.8) 10^3/uL Harper # (Auto) 0.8 (0.3-0.8) 10^3/uL Eos # (Auto) 0.3 (0.0-0.7) 10^3/uL Baso # (Auto) 0.1 (0.0-0.1) 10^3/uL Abs Immat Gran (auto) 0.02 (0.00-0.03) 10^3/uL Imm/Tot Granulo (auto) 0.2 (0.0-0.5) % Sodium 138 (136-145) mmol/L Potassium 3.6 (3.5-5.1) mmol/L Chloride 105 (98-107) mmol/L Carbon Dioxide 26.9 (21.0-32.0) mmol/L Anion Gap 9.7 BUN 24.0 H (7.0-18.0) mg/dL Creatinine 0.83 (0.70-1.30) mg/dL Est GFR ( Amer) >60 (>=60 mL/min/1.73m^2) Est GFR (Non-Af Amer) >60 (>=60 mL/min/1.73m^2) BUN/Creatinine Ratio 28.9 Glucose 85 (74-106) mg/dL Calcium 9.2 (8.5-10.1) mg/dL Troponin I High Sens 9.8 8.0 (4.0-76.1) pg/mL Imaging Data Chest x-ray: Radiologist's impression: ITS Impressions Chest X-Ray 06/03/25 15:54 IMPRESSION: Bibasilar atelectasis. No definite acute airspace disease. Impression dictated by: Yannick Chong M.D. 06/03/2025 4:31 PM Dictation Location: [place] [address] Electronically authenticated by: [id number] Y Date: 06/03/2025 16:31 ECG Data Attestation: I personally reviewed and interpreted this ECG as follows: (KG on my interpretation shows sinus rhythm with a rate of 90. There is no ST segment elevation but there is slight ST depression in V4, V5, and V6. This was also present on an EKG taken on March 14 of this year. There does not appear to be a significant change. Repeat EKG at 5:23 PM shows similar ) Discharge Plan Discharge Chief Complaint: Chest Pain Clinical Impression: Chest pain Patient Disposition: Home, Self-Care Time of Disposition Decision: 17:33 Condition: Good Mode of Transportation: Private Vehicle Prescriptions / Home Meds: No Action aspirin 81 mg tablet,delayed release (DR/EC) 81 mg PO DAILY atorvastatin 20 mg tablet 20 mg PO DAILY ferrous sulfate [FeroSul] 325 mg (65 mg iron) tablet 325 mg PO DAILY meloxicam 15 mg tablet 15 mg PO DAILY metformin 500 mg tablet 500 mg PO BID metoprolol succinate 50 mg tablet extended release 24 hr 50 mg PO QPM tamsulosin 0.4 mg capsule 0.4 mg PO Q24H tadalafil [Cialis] 10 mg tablet 10 mg PO DAILY PRN (Reason: sexual activity) Rx Instructions: administer approximately 30min before sexual activity; do not use more than 1 dose per 24hrs Print Language: Georgian Instructions: Chest Pain (ED) Referrals: Sophie Delarosa NP [Primary Care Provider, Family Practice] - 1 week
[2025-06-03 16:01] LABS: Hematocrit 40.9 % (42.0-54.0); Hemoglobin 13.8 g/dL (14.0-18.0); Immature Granulocytes Abs Auto 0.02 10^3/uL (0.00-0.03); Immature Granulocytes Pct Auto 0.2 % (0.0-0.5); Lymphocytes Absolute Auto 1.4 10^3/uL (1.2-3.8); Mean Corpuscular HGB Conc 33.7 g/dL (29.9-35.2); Mean Corpuscular Hemoglobin 29.6 pg (25.9-34.0); Mean Corpuscular Volume 87.6 fL (80.0-94.0); Platelet Count 285 10^3/uL (150-450); Red Blood Count 4.67 10^6/uL (4.70-6.10); White Blood Count 10.8 10^3/uL (4.0-11.0)
[2025-06-03] MEDS: ASPIRIN 81 MG TAB.CHEW 324 MG PO (16:01)
[2025-06-03] MEDS: NITROGLYCERIN 0.4 MG BOTTLE SL (16:01)
[2025-06-03 16:13] LABS: Anion Gap 9.7; Blood Urea Nitrogen 24.0 mg/dL (7.0-18.0); Calcium 9.2 mg/dL (8.5-10.1); Carbon Dioxide 26.9 mmol/L (21.0-32.0); Chloride 105 mmol/L (98-107); Estimated GFR (African America >60 (>=60 mL/min/1.73m^2); Estimated GFR (Non-African Ame >60 (>=60 mL/min/1.73m^2); Glucose 85 mg/dL (74-106); Potassium 3.6 mmol/L (3.5-5.1); Sodium 138 mmol/L (136-145)
--- OUTSIDE RECORDS SUMMARY | 2025-06-03 16:16 | XMS_ITS | CCD ---
Author Organization [facility] CliniSyar Care Team Providers Care Coil Winder Repair Name Role Phone SHAIKH Best CARLOS Admitting Unavailable SHAIKH Best CARLOS Attending Unavailable SHAIKH Best CARLOS Primary Care Unavailable SHAIKH Best CARLOS Consulting Unavailable SHAIKH CARLOS Primary Care Physician Chris WEAVER, Shen Primary Care Provider Scott INSTRUMENTATION INSTRUCTOR, Zoraida Unavailable [phone] Breanna WEAVER, Primary Care Provider Scott INSTRUMENTATION INSTRUCTOR, Zoraida Unavailable [phone] SHAIKH CARLOS Attending Unavailable APLING, BARBARA Cuenca Attending Unavailable APLING, BARBARA Cuenca Attending Unavailable APLKEELEY, BARBARA Cuenca Attending Unavailable APLEKELEY, BARBARA Cuenca Attending Unavailable ZORAIDA CHAVEZ Attending UnavailSOPHIE Garcia Attending Unavailable MISAEL PERKINS Attending Unavailable Drew Hirsch MD Attending Provider [phone] Drew Hirsch Attending Unavailable Drew Hirsch Admitting Unavailable SOPHIE DELAROSA Primary Care Physician Drew HIRSCH Attending Unavailable Drew HIRSCH Attending Unavailable Drew HIRSCH Attending Unavailable Drew HIRSCH Attending Unavailable Drew HIRSCH Attending Unavailable Drew HIRSCH Attending Unavailable Drew HIRSCH Attending Unavailable Drew HIRSCH Attending Unavailable SOPHIE DELAROSA Referring Unavailable Allergies Allergy Classification Reported Allergen(s) Allergy Type Date of Onset Reaction(s) Facility (1 source) No Known Medication Allergies; Translations: [No Known Medication Allergies] Propensity to adverse reactions (disorder) [facility] Repository Medications Current Medications Medication Drug Class(es) Dates Sig (Normalized) Sig (Original) amoxicillin 875 mg / clavulanate 125 mg oral tablet (2 sources) Penicillin-class Antibacterial Start: 04-12-2025 End: 04-22-2025 take 1 tablet by mouth in the morning amoxicillin-clav ulanate (Augmentin) 875-125 MG tablet Indications: Acute non-recurrent maxillary sinusitis Take 1 tablet (875 mg) by mouth in the morning and 1 tablet (875 mg) before bedtime. Do all this for 10 days. 10 tablet 04/12/2025 04/22/2025 Active aspirin 81 mg oral capsule (20 sources) Platelet Aggregation Inhibitor, Nonsteroidal Anti-inflammatory Drug Start: 01-03-2025 take 1 capsule by mouth once daily aspirin 81 mg oral capsule 81 mg = 1 cap(s), Oral, Daily Start Date: 01/03/25 Status: Ordered Repeat number: 1 Start: 08-26-2023 End: 08-12-2025 take 1 tablet by mouth once daily aspirin 81 MG EC tablet Indications: TIA (transient ischemic attack) Take 1 tablet (81 mg) by mouth Daily 90 tablet 3 08/12/2024 08/12/2025 Active atorvastatin 20 mg oral tablet (20 sources) HMG-CoA Reductase Inhibitor Start: 2023 End: 05-24-2025 atorvastatin 20 mg Tab Refills(s) 0 Start Date: 05/20/23 Status: Ordered Repeat number: 1 cetirizine hydrochloride 10 mg oral tablet (7 sources) Histamine-1 Receptor Antagonist Start: 08-24-2024 End: 12-13-2024 take 1 tablet by mouth once daily cetirizine (ZyrTEC) 10 MG tablet Indications: Acute rhinitis Take 1 tablet (10 mg) by mouth Daily 30 tablet 2 08/24/2024 12/13/2024 Discontinued (Therapy completed) clopidogrel 75 mg oral tablet (7 sources) P2Y12 Platelet Inhibitor Start: 2023 End: 10-09-2023 clopidogrel 75 mg Tab Refills(s) 0 Start Date: 05/20/23 Status: Ordered Repeat number: 1 diclofenac sodium 0.01 mg/mg topical gel (17 sources) Nonsteroidal Anti-inflammatory Drug Start: 2023 End: 08-24-2024 diclofenac topical 1% gel Refill(s) 0 Start Date: 05/20/23 Status: Ordered Repeat number: 1 dutasteride 0.5 mg oral capsule (8 sources) 5-alpha Reductase Inhibitor Start: 01-03-2025 take 1 capsule by mouth once daily dutasteride 0.5 mg Cap 0.5 mg = 1 cap(s), Oral, Daily, # 90 cap(s), Refills(s) 3, Pharmacy: [facility], 192, cm, 01/03/25 12:43:00 EDT, Height/Length Dosing, 122.9, kg, 01/03/25 12:43:00 EDT, Weight Dosing Start Date: 01/03/25 Status: Ordered Quantity: 90.0 Unit: cap(s) Repeat number: 4 Indications: Benign prostatic hyperplasia with lower urinary tract symptoms; fluticasone propionate 0.05 mg/actuat metered dose nasal spray (20 sources) Corticosteroid Start: 08-24-2024 End: 01-03-2026 take 1-2 spray(s) nasal route once daily fluticasone (Flonase) 50 MCG/ACT nasal spray Indications: Acute rhinitis Administer 1-2 sprays into each nostril Daily Shake gently. Before first use, prime pump. After use, clean tip and replace cap. 48 g 1 05/03/2025 08/01/2025 Active meloxicam 15 mg oral tablet (20 sources) Nonsteroidal Anti-inflammatory Drug Start: 09-27-2019 End: 06-04-2025 meloxicam 15 mg Tab Refills(s) 0 Start Date: 05/20/23 Status: Ordered Repeat number: 1 metFORMIN hydrochloride 500 mg oral tablet (20 sources) Biguanide Start: 2023 End: 05-26-2025 metformin 500 mg Tab Refills(s) 0 Start Date: 05/20/23 Status: Ordered Repeat number: 1 take 1 tablet by abdoul th once daily at breakfast metFORMIN (GLUCOPHAGE) 500 mg tablet Rufino e 500 mg by mouth daily with breakfast. 0 Active 24 hr metoprolol succinate 50 mg extended release oral tablet (20 sources) beta-Adrenergic Karolyn Start: 2023 End: 04-12-2025 take 1 mg by mouth once daily metoprolol 50 mg ER Tab mg tab(s), Oral, Daily, Refills(s) 0 Start Date: 05/20/23 Status: Ordered Repeat number: 1 Start: 01-21-2022 take 1 tablet by abdoul every twenty-four hours in the morning metoprolol succinate XL (TOPROL XL) 25 mg 24 hr tablet Take 1 tablet (25 mg total) by mouth in the morning. 90 tablet 2 01/21/2022 Active Multivitamin preparation (4 sources) Start: 2023 multivitamin R efill(s) 0 Start Date: 05/20/23 Status: Ordered Repeat number: 1 Start: 2023 multivitamin R efill(s) 0 Start Date: 05/20/23 Status: Ordered tadalafil 10 mg oral tablet (20 sources) Phosphodiesterase 5 Inhibitor Start: 10-09-2023 Start: 2023 take 2 tablets by mo [facility] once daily as needed Cialis 10 mg Tab 20 mg = 2 tab(s), Oral, Daily, PRN for erectile dysfunction, Refills(s) 0 Start Date: 05/20/23 Status: Ordered Repeat number: 1 tamsulosin hydrochloride 0.4 mg oral capsule (20 sources) alpha-Adrenergic Akrolyn Start: 11-29-2024 End: 06-04-2025 take 1 capsule by mouth every twenty-four hours in the morning tamsulosin (Flomax) 0.4 MG 24 hr capsule Indications: BPH with urinary obstruction Take 1 capsule (0.4 mg) by mouth in the morning and 1 capsule (0.4 mg) before bedtime. 180 capsule 1 03/06/2025 06/04/2025 Active Start: 02-25-2024 End: 11-22-2024 take 1 capsule by mouth every twenty-four hours in the morning tamsulosin (Flomax) 0.4 MG 24 hr capsule Indications: BPH with urinary obstruction Take 1 capsule (0.4 mg) by mouth in the morning and 1 capsule (0.4 mg) before bedtime. 180 capsule 08/24/2024 11/22/2024 Active Start: 2023 take 1 capsule by mo [facility] twice daily tamsulosin 0.4 mg Cap 0.4 mg = 1 cap(s), Oral, BID, # 60 tab(s), Refills(s) 6, Pharmacy: [facility], 192, cm, 05/20/23 10:49:00 EDT, Height/Length Dosing, 110, kg, 05/20/23 10:49:00 EDT, Weight Dosing Start Date: 05/20/23 Status: Ordered Quantity: 60.0 Unit: tab(s) Repeat number: 7 Completed/Discontinued Medications Medication Drug Class(es) Dates Sig (Normalized) Sig (Original) ciprofloxacin 500 mg oral tablet (1 source) Quinolone Antimicrobial Start: 5 take 1 tablet by mouth once daily Cipro 500 mg Tab 500 mg = 1 tab(s), Oral, Daily, take one tab day before procedure and one tab after procedure, # 2 tab(s), Refills(s) 0, Pharmacy: [facility], 192, cm, 01/03/25 12:43:00 EDT, Height/Length Dosing, 122.9, kg, 01/03/25 12:43:00 EDT, Weight Dosing Start Date: 01/03/25 Status: Ordered Quantity: 2.0 Unit: tab(s) Repeat number: 1 ferrous sulfate 325 mg oral tablet (20 sources) Start: 4 End: 5 take 1 tablet by mouth at mealtime ferrous sulfate (FeroSul) 325 (65 Fe) MG tablet Indications: Iron deficiency Take 1 tablet (325 mg) by mouth in the morning. Take with meals. 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] Onset: 03-28-2025 03-28-2025 Chronic Calculus of urinary tract (4 sources) History of calculus of kidney 2023 Episodic Cardiac dysrhythmias (2 sources) Ventricular premature depolarization; Translations: [Ventricular premature depolarization] Onset: 03-18-2025 Chronic Diabetes mellitus without complication (5 sources) Type 2 diabetes mellitus without complications; Translations: [Diabetes mellitus] Onset: 06-28-2022 2023 Chronic Diseases of white blood cells (6 sources) Lymphocytopenia; Translations: [Lymphocytopenia] Onset: 04-12-2025 04-12-2025 Chronic Disorders of lipid metabolism (20 sources) Hyperlipidemia, unspecified; Translations: [Hyperlipidemia] Onset: 06-28-2022 2023 Chronic Essential hypertension (20 sources) Essential (primary) hypertension; Translations: [Hypertensive disorder] Onset: 06-25-2022 Chronic Genitourinary symptoms and ill-defined conditions (7 sources) Sensation as if bladder still full; Translations: [Feeling of incomplete bladder emptying] Onset: 2023 Episodic Hyperplasia of prostate (20 sources) Benign prostatic hyperplasia with lower urinary tract symptoms; Translations: [Benign prostatic hypertrophy with outflow obstruction] Onset: 06-28-2022 Chronic Nutritional deficiencies (6 sources) Iron deficiency; Translations: [Iron deficiency] 06-21-2024 Episodic Osteoarthritis (6 sources) Arthritis; Translations: [Arthritis of left knee] 2023 Chronic Other aftercare (4 sources) Long-term current use of anticoagulant; Translations: [extermination supervisor (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) use of anticoagulants] Onset: 2023 Episodic Other male genital disorders (20 sources) Male erectile dysfunction, unspecified; Translations: [Erectile dysfunction] Onset: 2023 Chronic Other male genital disorders (2 sources) Hydrocele of testis; Translations: [Hydrocele, unspecified] Onset: 01-25-2025 Episodic Other male genital disorders (3 sources) Disorder of male genital organ 01-03-2025 Episodic Other nervous system disorders (5 sources) Chronic pain; Translations: [Other chronic pain] [...] for malignant neoplasm done] Onset: 2023 Episodic Other upper respiratory infections (20 sources) Acute upper respiratory infection; Translations: [Acute upper respiratory infection, unspecified] Onset: 08-26-2023 Resolved: 12-13-2024 08-26-2023 Episodic Residual codes; unclassified (20 sources) Obstructive sleep apnea syndrome; Translations: [Obstructive sleep apnea (adult) (pediatric)] Onset: 12-13-2024 12-13-2024 Chronic Residual codes; unclassified (1 source) Past history of procedure; Translations: [Other specified postprocedural states] Onset: 05-13-2025 Episodic Transient cerebral ischemia (20 sources) Transient cerebral ischemia; Translations: [Transient cerebral ischemic attack, unspecified] Onset: 08-26-2023 2023 Chronic Unclassified (4 sources) Drug therapy finding 2023 Unclassified (4 sources) Finding of sensation of bladder 2023 Unclassified (4 sources) Patient encounter status 2023 Past or Other Problems Problem Classification Problem Date Documented Da te Episodic/Chronic Deficiency and other anemia (20 sources) Iron deficiency anemia; Translations: [Iron deficiency anemia, unspecified] Onset: 02-25-2024 02-25-2024 Episodic Deficiency and other anemia (1 source) Anemia; Translations: [Anemia, unspecified] 09-03-2023 Episodic Diabetes mellitus without complication (20 sources) Prediabetes; Translations: [Prediabetes] Onset: 03-01-2022 Resolved: 12-20-2024 08-26-2023 Episodic Nonspecific chest pain (1 source) Precordial pain; Translations: [Precordial pain] Onset: 12-10-2019 12-10-2019 Episodic Other male genital disorders (20 sources) Swelling of testicle; Translations: [Other specified disorders of the male genital organs] Onset: 12-13-2024 Resolved: 12-13-2024 12-13-2024 Episodic Other male genital disorders (20 sources) Swelling of left half of scrotum; Translations: [Other specified disorders of the male genital organs] Onset: 12-13-2024 12-13-2024 Episodic Other male genital disorders (20 sources) Adult hydrocele; Translations: [Hydrocele, unspecified] Onset: 12-17-2024 12-17-2024 Episodic Other non-traumatic joint disorders (20 sources) Pain in left knee; Translations: [Pain in joint, lower leg] Onset: 02-25-2024 02-25-2024 Episodic Other non-traumatic joint disorders (20 sources) Chronic pain of left upper limb; Translations: [Pain in left shoulder] Onset: 02-25-2024 02-25-2024 Episodic Results Test Name Value Interpretation Reference Range Facility Ambulatory Visit Summaryon 0 05-13-2025 Ambulatory Visit Summary Ambulatory Visit Summary MARTI MORGAN :1955 Visit Date:05/13/2025 Ambulatory Visit Instructions Your Diagnosis Status post repair of hydrocele BPH with urinary obstruction Anticoagulated Your Care Team Attending Physician - Drew HIRSCH MD Primary Care Physician - SOPHIE DELAROSA CNP This Is Your Medications List dutasteride (dutasteride [...] Carpal tunnel, Colonoscopy, Tonsillectomy. Discharge Vitals Temperature (Tympanic) 36.9 ???C Heart Rate (Peripheral) 70 Respiratory Rate 16 Blood Pressure 120/60 Height 192 cm Height 76 in Weight 119.2 kg Weight 262.791 lb BMI 32.34 What to do next Scheduled Follow-Up Appointments Friday 10:30 AM EST With: Drew HIRSCH MD Where: [facility] [address] [id number]- [id number] 8:30 AM EST With: Drew HIRSCH MD Where: [facility] [address] [address]- You Need to Schedule the Following Appointments Follow Up with BETO WEAVER, Drew Painting, URL When: Comments: 6 mos Where: [address] [facility] [place] [address] Medications What How Much When Why Instructions [...] stones Hydrocele Hyperlipidemia Hypertension Prostate cancer screening Status post repair of hydrocele TIA (transient ischemic attack) Patient Survey You [...] these instructions at home: Medicines ??? Take kuce-btj-efvrpon and prescription medicines only as told by your health care provider. ??? Ask your health care provider if the medicine prescribed to you: ? Requires you to avoid driving or using machinery. ? Can cause constipation. You may need to take these actions to prevent or treat constipation: ? Drink enough fluid to keep your urine pale yellow. ? Take gzvj-utp-sobmnwz or prescription medicines. ? Eat foods that are high in fiber, such as beans, whole grains, and fresh fruits and vegetables. ? Limit foods that are high in fat and processed sugars, such as fried or sweet foods. Bathing ??? Do not take baths, swim, or use a hot tub until your health care provider approves. A (more content not included)... Normal [facility] Urology Office/Clinic Noteon 05-13-2025 Urology Office/Clinic Note Urology Office/Clinic Note Chief Complaint pt here for follow up HPI Staff Pt is a 69 year old male here S/P hydrocelectomy Dx: BPH with urinary obstruction, feeling of incomplete bladder emptying, hydrocele and anticoagulated. Flomax BID and Dutasteride 0.5mg qd PSA 06/21/19 - 0.90 08/21/20 - 0.89 06/25/22 - 0.79 12/18/24 - 1.01 S/p Cysto 01/25/25 * Dutasteride 0.5 mg qd and Flomax 0.4 mg bid has only been taking dutasteride and wants to know if he should be taking both pt denies pain/burning denies visible blood denies flank pain pt complains of frequency History of Present Illness Tests reviewed: reviewed UA, op note, path report I have reviewed the previous health record [...] HPI. Physical Exam Vitals & Measurements T: 36.9 ???C(Tympanic) HR: 70(Peripheral) RR: 16 BP: 120/60 HT: 192 cm HT: 76 in WT: 262.791 lb WT: 119.2 kg BMI: 32.34 General Appearance: alert, no distress, well nourished, well developed male. Genitourinary: normal scrotum, normal testes, normal urethra, normal epididymis, normal vas deferens/spermatic cord. Assessment/Plan 1. Status post repair of hydrocele (Z98.890: Other specified postprocedural states) Scrotal US 12/14/24 [facility] - Bilateral hydroceles, larger on L. Possible R varicocele. No testicular mass or torsion. Scrotal US 02/09/25 [facility] - Large L hydrocele. Small R hydrocele. S/p L Hydrocelectomy 04/14/25 (several 100cc drained) - Benign. Denies any PO complications. Healing well. Reviewed path with pt, which was neg. -Cont self monitoring -F/u in 6 mos 2. BPH with urinary obstruction (N40.1: Benign prostatic hyperplasia with lower urinary tract symptoms) PSA 06/21/19 - 0.90 08/21/20 - 0.89 06/25/22 - 0.79 12/18/24 - 1.01 12/14/24 - started Dutasteride S/p Cysto 01/25/25 - Short, bilobar obstruction. UA neg. IPSS not completed (20). Taking Dutasteride 0.5 mg qd but has not been taking Flomax 0.4 mg bid. Has noticed a difference in sxs wo Flomax. Advised pt to restart this. May need to consider a TURP in the future as pt is already on max meds. -Cont Dutasteride wo changes -Restart Flomax bid 3. Anticoagulated (Z79.01: assisted (current) use of anticoagulants) Plavix. [1] Follow-up With When Contact Information BETO WEAVER, Drew Painting, URL [address] [facility] [address] Additional Instructions: 6 mos Patient Education Hydrocelectomy, Adult, Care After I, Sherry Fitzpatrick, personally scribed for Dr. Hirsch on 05/13/2025 09:35:50. . Documentation recorded by the [email or web address], Sherry Fitzpatrick, accurately reflects the services(s) I performed and decisions made by me. Authenticated by Dr. Hirsch on 05/13/2025 09:39:53. Problem List/Past Medical History Ongoing Anticoagulated Arthritis BPH with urinary obstruction Diabetes ED (erectile dysfunction) Feeling of incomplete bladder emptying History of kidney stones Hydrocele Hyperlipidemia Hypertension Prostate cancer screening Status post repair of hydrocele TIA (transient ischemic attack) Historical No qualifying [...] lifetime) Tobacco Use:. Never Smokeless Tobacco Use:., 05/13/2025 Family History Heart disease: Father and Grandparent. Immunizations Vaccine Date Status Comments influenza virus vaccine, inactivated 07/10/2024 Recorded influenza virus vaccine, inactivated 06/08/2024 Recorded 2025-01-17: [facility] pneumococcal 20-valent conjugate vaccine 09/13/2023 Recorded RSV vaccine preF3, recombinant 08/15/2023 Recorded influenza virus vaccine (more content not included)... Normal [facility] Comment on above: Result Comment: Elec tronically Signed By: Drew HIRSCH MD\.br\Date and Time Signed: 05/13/25 09:40 EDT\.br\Electronically Co-Signed By: Sherry Fitzpatrick\.br\Date and Time Co-Signed: 05/13/25 09:36 EDT Benedicto 04-14-2025 L --- Specimen: [id number] Received: 04/14/25 Status: EVELINE Fuller Num: [id number] Spec Type: Surgical Subm Dr: Drew Hirsch MD Tissues: A Hydrocele Sac (LEFT HYDROCELE SAC) Procedures: Anneliese VELEZ/[place] L2 Age/ Patient Sex Location Account Attending Physician Marti Morgan 69/M LABELL [id number] Drew Hirsch MD SPEC NUM: [id number] RECD: 04/14/25 STATUS: EVELINE FULLER NUM: [id number] ARIELA: 04/14/[address]: Drew Hirsch MD ENTERED: 04/14/25 [facility] DR: Odette Case SPEC TYPE: Surgical DEPT: [facility] ENTERED BY: [id number] RECV BY: [id number] ORDERED: HE, Gross/Micro L2 ORDERED: HE, Gross/Micro L2 Pathological Diagnosis Left hydrocele sac, excision - Benign fibroadipose tissue consistent with hydrocele sac. Clinical Information Left hydrocele Gross Description Received in formalin labeled with the patients name, date of , and left hydrocele sac is a escoto-pink to purple, ovoid sheet of fibromembranous tissue, 6.5 x 5 x 0.2 cm. The specimen is smooth and glistening on 1 surface, while the opposing surface displays focal adhesions. Serial sections reveal escoto-saenz to pink, glistening, and uniform cut surfaces. Provisioning Specialist sections are submitted in a single cassette. (1, , [id number] A) Microscopic Description Microscopic examination is performed. CPT Codes 73317 Specimen: [id number] Received: 04/14/25 Status: EVELINE Fuller Num: [id number] Spec Type: Surgical Subm Dr: Drew Hirsch MD Tissues: A Hydrocele Sac (LEFT HYDROCELE SAC) Procedures: HE, Gross/Micro L2 Patient: EddieMarti [id number] (Continued) Signed (signature on file) Luis M Ruth MD 04/18/25 1354 Normal [facility] HbA1c (Bld) [Mass fraction]o n 04-12-2025 Interpretation and review of laboratory results Abnormal [facility] - Hematology and Cell countson 04-12-2025 HbA1c (Bld) [Mass fraction] 6.3 % [facility] Healthcare Provider Letteron 04-11-2025 Provider Letter Provider Letter April 11, 2025 MARTI MORGAN [address] [place] [address] : 1955 To Whom It May Concern, Please excuse above patient from work. Date of Illness: From: 04/14/25 To: 04/24/25 May Return to Work On: 04/25/25 Restrictions: Patient may return to work 04/25/25 with no heavy lifting over 20 pounds x 3 weeks until 05/16/25 Comments: Patient is having a surgical procedure on 04/14/25 Sincerely, Drew Hirsch M.D., F.A.C.S. [facility] [address] [place], [place] [address] , option #[address] [facility] Documentationon 03-29-2025 Documentation [id number] Kali Morgan 1955 M Date Provider Department Center 03/29/2025 [id number] PERKINS [facility] CARD [facility] Family History Problem Relation Age of Onset Heart attack Father Coronary artery disease Father Other Father Coronary artery disease Maternal Grandfather Other Maternal Grandfather Family Status - Relation Status Age at Father Maternal Grandfather [facility] Orders Onlyon 03-28-2025 Orders Only [id number] Kali Morgan 1955 M Date Provider Department Center 03/28/2025 [id number], HISTORICAL CARD [facility] Family History Problem Relation Age of Onset Heart attack Father Coronary artery disease Father Other Father Coronary artery disease Maternal Grandfather Other Maternal Grandfather Family Status - Relation Status Age at Father Maternal Grandfather [facility] CA ECHO DOPPLER COMPLETEon 0 03-26-2025 [facility] [address] [place] [address] Cardiology Report Signed Patient: MARTI MORGAN MR#: [id number] : 1955 Acct:[id number] Age/Sex: 69 / M ADM Date: 03/24/25 Loc: CARD Attending Dr: Misael Perkins M.D. Ordering Physician: Misael Perkins M.D. Date of Service: 03/24/25 Procedure(s): CA echo doppler complete Accession Number(s): [id number] cc: Sophie Delarosa INSTRUMENTATION INSTRUCTOR; Misael Perkins M.D. Patient Name: MARTI MORGAN MR#: [id number] : 1955 Exam Date: 03/24/2025 Ordering Doctor: DR. MISAEL PERKINS M.D. ECHOCARDIOGRAM REPORT PROCEDURE: CA ECHO DOPPLER [...] 56.34 ml, 56.34 ml Dictated by: Misael Perkins MD on (more content not included)... [facility] Radiology, Radiologi MD akin - 03/26/2025 [place] [address] Cardiology Report Signed Patient: MARTI MORGAN MR#: [id number] : 1955 Acct:[id number] Age/Sex: 69 / M ADM Date: 03/24/25 Loc: CARD Attending Dr: Misael Perkins M.D. Ordering Physician: Misael Perkins M.D. Date of Service: 03/24/25 Procedure(s): CA echo doppler complete Accession Number(s): [id number] cc: Sophie Delarosa INSTRUMENTATION INSTRUCTOR; Misael Perkins M.D. Patient Name: MARTI MORGAN MR#: [id number] : 1955 Exam Date: 03/24/2025 Ordering Doctor: DR. MISAEL PERKINS M.D. ECHOCARDIOGRAM REPORT PROCEDURE: CA ECHO DOPPLER [...] 56.34 ml, 56.34 ml Dictated by: Misael Perkins MD on 03/26/2025 at 18:10 Approved by: Misael Perkins MD on 03/26/2025 at 18:15 Dictated By: Misael Perkins M.D. Signed By: 03/26/251815 DD/ 14 TD/TT: [employer]orer [employer]: [facility] Radiology Study observation (narrative) [facility] [facility] ECHO DOPPLER COMPLETEOrde red By: Radiologist Radiology on 03-26-2025 [facility] Work Phone: Office Visiton 03-18-2025 Follow-up visit [id number] Kali Morgan 1955 M Date Provider Department Center 03/18/2025 [id number] PERKINS [facility] Family History Problem Relation Age of Onset Heart attack Father Coronary artery disease Father Other Father Coronary artery disease Maternal Grandfather Other Maternal Grandfather Family Status - Relation Status Age at Father Maternal Grandfather Level of Service:67669 NC OFFICE/OUTPATIENT ESTABLISHED MOD MDM 30 MIN Reason for Visit and Comments: Abnormal ECG [293] - Performed a few days ago, with labs Pre-op Exam [809997] - Had stress test and echo at [facility] in 2021 s/p Covid-19 infection. Patient denies chest pain, SOB, and palpitations. He will be scheduled for hydrocele procedure with Dr. Hirsch. Hypertension [477329] Hyperlipidemia [182] Transient Ischemic Attack [441134] - Hx of TIA, formerly on Plavix. [facility] Orders Onlyon 03-18-2025 Orders Only [id number] EddieKali marino Hays 1955 M Date Provider Department Center 03/18/2025 [id number], HISTORICAL [facility] Family History Problem Relation Age of Onset Heart attack Father Coronary artery disease Father Other Father Coronary artery disease Maternal Grandfather Other Maternal Grandfather Family Status - Relation Status Age at Father Maternal Grandfather [facility] ALL BASIC METABOLIC PANELon 03-14-2025 Anion gap [Moles/Vol] 11.7 mmol/L [facility] Calcium [Mass/Vol] 9.1 mg/dL 8.5 - 10. 1 mg/dL [facility] Chloride [Moles/Vol] 106 mmol/L 98 - 10 7 mmol/L [facility] CO2 [Moles/Vol] 30.7 mmol/L 21.0 - 32.0 mmol/L [facility] Creatinine [Mass/Vol] 0.69 mg/dL Low 0.70 - 1.30 mg/dL [facility] GFR/1.73 sq M.predicted CKD-EPI (S/P/Bld) [Vol rate/Area] >60 >=60 mL/min/1.73m 2 [facility] Glucose [Mass/Vol] 127 mg/dL High 74 - 106 mg/dL [facility] Interpretation and review of laboratory results Abnormal [facility] Potassium [Moles/Vol] 4.4 mmol/L 3.5 - 5.1 mmol/L [facility] Sodium [Moles/Vol] 144 mmol/L 136 - 145 mmol/L [facility] TBH EGFR-NON AF [place] CITIZ[place] >60 >=60 mL/min/1.73m 2 [facility] Urea nitrogen [Mass/Vol] 18 mg/dL 7.0 - 18.0 mg/dL [facility] Urea nitrogen/Creatinine [Mass ratio] 26.1 mg/mg [facility] ECG 12-LEADon 03-14-2025 [facility] [address] [place] [address] Electrocardiograph Report Signed Patient: MARTI MORGAN MR#: [id number] : 1955 Acct:[id number] Age/Sex: 69 / M ADM Date: 03/14/25 Loc: PST Attending Dr: Drew Hirsch M.D. Ordering Physician: Drew Hirsch M.D. 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 Measurements Intervals [place] Rate: 76 P: 153 NC: 195 QRS: -21 QRSD: 115 T: 150 [...] By: MARTI MIKE Signed By: 03/14/252030 DD/ TD/TT: Laborer Aquatic Life: [facility] Radiology, Radiologi MD akin - 03/14/2025 [place] [address] Electrocardiograph Report Signed Patient: MARTI MORGAN MR#: [id number] : 1955 Acct:[id number] Age/Sex: 69 / M ADM Date: 03/14/25 Loc: PST Attending Dr: Drew Hirsch M.D. Ordering Physician: Drew Hirsch M.D. Date of Service: 03/14/25 Procedure(s): ECG 12 lead Accession Number(s): [id number] cc: 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 Measurements Intervals [place] Rate: 76 P: 153 NC: 195 QRS: -21 QRSD: 115 T: 150 [...] MIKE Signed By: 03/14/252030 DD/ 8 TD/TT: Laborer Aquatic Life: [facility] Radiology Study observation (narrative) [facility] ECG 12-LEADOrdered By: Radio logist Radiology on 03-14-2025 [facility] Work Phone: Ambulatory Visit Summaryon 0 03-07-2025 Ambulatory Visit Summary Ambulatory Visit Summary MARTI MORGAN :1955 Visit Date:03/07/2025 Ambulatory Visit Instructions Your Diagnosis Hydrocele BPH with urinary obstruction Anticoagulated Your Care Team Attending Physician - BETO WEAVER, Drew Painting Primary Care Physician - BREANNA WEAVER, This Is Your Medications List dutasteride (dutasteride [...] Follow-Up Appointments Friday 10:30 AM EST With: Drew HIRSCH MD Where: [facility] [address] [place] [address]- You Need to Schedule the Following Appointments Follow Up with Drew HIRSCH MD, URL When: Comments: westley L hydrocelectomy Where: [facility] [address], [place] [address]- [phone] Medications What How Much When Why Instructions [...] these instructions at home: Medicines ??? Take efta-mfn-jxetsqe and prescription medicines only as told by your health care provider. ??? Ask your health care provider if the medicine prescribed to you: ? Requires you to avoid driving or using machinery. ? Can cause constipation. You may need to take these actions to prevent or treat constipation: ? Drink enough fluid to keep your urine pale yellow. ? Take bamc-gpf-oflfnlv or prescription medicines. ? Eat foods that [...] it off when you shower or bathe. Incis (more content not included)... Normal [facility] Ambulatory Visit Summary Ambulatory Visit Summary EDDIE MARTI Hays :1955 Visit Date:03/07/2025 Ambulatory Visit Instructions Your Diagnosis Hydrocele BPH with urinary obstruction Anticoagulated Your Care Team Attending Physician - BETO WEAVER, Drew Painting Primary Care Physician - BREANNA WEAVER, This Is Your Medications List dutasteride (dutasteride [...] Follow-Up Appointments Friday 10:30 AM EST With: Drew HIRSCH MD Where: [facility] [address] [place] [address]- You Need to Schedule the Following Appointments Follow Up with Drew HIRSCH MD, NAYANA When: Comments: westley L hydrocelectomy Where: [facility] [address], [place] [address]- [phone] Medications What How Much When Why Instructions [...] these instructions at home: Medicines ??? Take jszl-nvy-jozfaxy and prescription medicines only as told by your health care provider. ??? Ask your health care provider if the medicine prescribed to you: ? Requires you to avoid driving or using machinery. ? Can cause constipation. You may need to take these actions to prevent or treat constipation: ? Drink enough fluid to keep your urine pale yellow. ? Take ebdj-gmr-ztrejfo or prescription medicines. ? Eat foods that [...] it off when you shower or bathe. Incis (more content not included)... Normal [facility] Provider Letteron 03-07-2025 Provider Letter Provider Letter March 07, 2025 [address] [place] [id number] [place] [address] : 1955 To Whom It May Concern, Please excuse above patient from work. Date of Illness: From: 03/17/25 To: 03/24/2025 May Return to Work On:03/25/25 Restrictions: No work 03/17/25- 03/24/25 Comments: Patient is having surgery on 03/17/25. No work 03/17/25- 03/24/25. He may return to work 03/25/25 with no heavy lifting over 10 lbs x 1 week. Sincerely, [facility] Urology Office/Clinic Noteon 03-07-2025 Urology Office/Clinic Note Urology Office/Clinic Note Chief Complaint pt here [...] size. Interferes w urination at times. More bothersome/uncomfortabl e, within the last 3 wks. Wishes to [...] bid. Cont wo changes. 3. 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 Follow-up With When Contact Information BETO WEAVER, Drew Painting, URL [facility] [address], [place] [address]- [phone] Additional Instructions: sched L hydrocelectomy Patient Education Hydrocelectomy, Adult, Care After Hydrocelectomy, Adult I, hSerry Fitzpatrick, personally scribed for Dr. Hirsch on 03/07/2025 15:22:21. . Documentation recorded by the Sherry rucker, accurately reflects the services(s) I performed and [...] influenza virus vaccine, inactivated 06/22/2023 Recorded SARS-CoV-2 (more content not included)... Normal [facility] Comment on above: Result Comment: Elec tronically Signed By: Drew HIRSCH MD\.br\Date and Time Signed: 03/07/25 15:24 EDT\.br\Electronically Co-Signed By: Sherry Fitzpatrick\.br\Date and Time Co-Signed: 03/07/25 15:22 EDT [place] [address] Ultrasound Report Signed Patient: MARTI MORGAN MR#: [id number] : 1955 Acct:[id number] Age/Sex: 69 / M ADM Date: 02/09/25 Loc: US Attending Dr: Drew Hirsch M.D. Ordering Physician: Drew Hirsch M.D. Date of Service: 02/09/25 Procedure(s): US scrotum Accession Number(s): [id number] cc: Sophie Delarosa NP; Drew Hirsch M.D. The [address] [id number] Patient Name: MARTI MORGAN MRN: [facility]:[id number] date: 1955 Sex: M Assigned Patient Location: US Current Patient Location: US Accession/Order Number: [id number] Exam Date: 02/09/2025 18:40 Report Date: 02/09/2025 18:42 At the request of: DREW HIRSCH MD Procedure: US scrotum Scrotal ultrasound [...] Rudolph M.D. 02/09/2025 6:42 PM Dictation Location: [place] [address] Electronically authenticated by: [id number] Y Date: 02/09/2025 18:42 Dictated By: Clinton Rudolph D.O. Signed By: 02/10/25 0950 DD/ 1842 TD/TT: Laborer Aquatic Life: [facility] Radiology, Radiologi MD akin - 02/10/2025 The [place] [id number] Ultrasound Report Signed Patient: MARTI MORGAN MR#: [id number] : 1955 Acct:[id number] Age/Sex: 69 / M ADM Date: 02/09/25 Loc: US Attending Dr: Drew Hirsch M.D. Ordering Physician: Drew Hirsch M.D. Date of Service: 02/09/25 Procedure(s): US scrotum Accession Number(s): [id number] cc: Sophie Delarosa INSTRUMENTATION INSTRUCTOR; Drew Hirsch M.D. [place] [address] Patient Name: MARTI MORGAN MRN: [id number] date: 1955 Sex: M Assigned Patient Location: US Current Patient Location: US Accession/Order Number: [id number] Exam Date: 02/09/2025 18:40 Report Date: 02/09/2025 18:42 At the request of: DREW HIRSCH MD Procedure: US scrotum Scrotal ultrasound [...] Rudolph M.D. 02/09/2025 6:42 PM Dictation Location: [place] [address] Electronically authenticated by: [id number] Y Date: 02/09/2025 18:42 Dictated By: Clinton Rudolph D.O. Signed By: 02/10/25 0950 DD/ 184 TD/TT: Laborer Aquatic Life: [facility] US Scrotum and testicleOrder ed By: Radiologist Radiology on 02-10-2025 [facility] Work Phone: US Scrotum and testicleon Radiology Study observation (narrative) [facility] Ambulatory Visit Summaryon 0 01-25-2025 Ambulatory Visit Summary Ambulatory Visit Summary MARTI MORGAN :1955 Visit Date:01/25/2025 Ambulatory Visit Instructions Your Diagnosis BPH with urinary obstruction Feeling of incomplete bladder emptying Hydrocele Anticoagulated Your Care Team Attending Physician - Drew HIRSCH MD Primary Care Physician - BREANNA WEAVER, This Is Your Medications List ciprofloxacin [...] Follow-Up Appointments Friday 10:30 AM EST With: Drew HIRSCH MD Where: [facility] [address] [place] [address]- You Need to Schedule the Following Appointments Follow Up with Drew HIRSCH MD, URL When: Where: [facility] [address], [place] [address]- Medications What How Much When Why Instructions [...] more likely to develop in men older t (more content not included)... Normal [facility] Urology Office/Clinic Noteon 01-25-2025 Urology Office/Clinic Note Urology Office/Clinic Note Chief Complaint cysto HPI [...] or torsion. -Cont monitoring 4. 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 Follow-up With When Contact Information BETO WEAVER, Drew Painting, [facility] [address], [place] [address]- Additional Instructions: 5 mos Patient Education Benign [...] virus vaccine, inactivated 06/22/2023 Recorded SARS-CoV-2 (COVID-19) mRNAMUL.ORD! (more content not included)... Normal [facility] Comment on above: Result Comment: Elec tronically Signed By: Drew HIRSCH MD\.br\Date and Time Signed: 01/25/25 15:37 EDT\.br\Electronically Co-Signed By: Dunia Santiago\.br\Date and Time Co-Signed: 01/25/25 15:35 EDT Ambulatory Visit Summaryon 0 01-03-2025 Ambulatory Visit Summary Ambulatory Visit Summary EDDIEMARTI Saúl :1955 Visit Date:01/03/2025 Ambulatory Visit Instructions Your Diagnosis BPH with urinary obstruction Feeling of incomplete bladder emptying Hydrocele Anticoagulated Your Care Team Attending Physician - Drew HIRSCH MD Primary Care Physician - BREANNA WEAVER, Referring Physician - SOPHIE DELAROSA CNP [...] Weems When: Where: [facility] [address], [place] [address]- [phone] Medications What How Much When Why Instructions New ciprofloxacin (Cipro 500 mg Tab) 1 Tablets By Mouth Every day take one tab day before procedure and one tab after procedure Pickup at [facility] 1429 New dutasteride (dutasteride 0.5 mg Cap) 1 Capsules By Mouth Every day BPH with urinary obstruction Refills: 3 Pickup at [facility] 1429 Unchanged tamsulosin (tamsulosin 0.4 mg Cap) 1 [...] physician if questions or concerns Pharmacy Information [facility]: [address] [place], [place] [id number] [phone] Allergies No Known Medication Allergies Problems Ongoing [...] including vitamins, herbs, eye drops, creams, and ezes-okx-gktiohw medicines. ??? Any problems you or family members have had with anesthetic medicines. ??? Any blood disorders you have. ??? (more content not included)... Normal [facility] ALL CBC WITH AUTO DIFFon BASOPHILS ABSOLUTE AUTO 0.1 [facility] Basophils/100 WBC (Bld) 0.8 % 0.2 - 2.0 % [facility] Eosinophils/100 WBC (Bld) 4.4 % 0.9 - 7.0 % [facility] Erythrocyte distribution width (RBC) [Ratio] 13.6 % 11.0 - 15.0 % [facility] Hematocrit (Bld) [Volume fraction] 41.9 % Low 42.0 - 54.0 % [facility] Hemoglobin (Bld) [Mass/Vol] 14 g/dL 14.0 - 18.0 g/dL [facility] IMMATURE GRANULOCYTES ABS AUTO 0.02 [facility] Immature granulocytes/100 WBC (Bld) 0.2 % 0.0 - 0.5 % [facility] Interpretation and review of laboratory results Abnormal [facility] LYMPHOCYTES ABSOLUTE AUTO 1.2 [facility] Lymphocytes/100 WBC (Bld) 14.4 % Low 20.5 - 60.0 % [facility] MCH (RBC) [Entitic mass] 29.4 pg 25.9 - 34.0 pg [facility] MCHC (RBC) [Mass/Vol] 33.4 g/dL 29.9 - 35.2 g/dL [facility] MCV (RBC) [Entitic vol] 87.8 fL 80.0 - 94.0 fL [facility] MONOCYTES ABSOLUTE AUTO 0.6 [facility] Monocytes/100 WBC (Bld) 7.2 % 1.7 - 12.0 % [facility] NEUTROPHILS ABSOLUTE AUTO 6.1 [facility] Neutrophils/100 WBC (Bld) 73 % 43.0 - 75.0 % [facility] Platelet mean volume (Bld) [Entitic vol] 9.4 fL Low 9.5 - 13.5 fL [facility] TBH EO # 0.4 [facility] TB PLT 279 [facility] RBC 4.77 [facility] WBC 8.4 [facility] [place] [address] Ultrasound Report Signed Patient: MARTI MORGAN MR#: [id number] : 1955 Acct:[id number] Age/Sex: 69 / M ADM Date: 12/14/24 Loc: US Attending Dr: Sophie Delarosa NP Ordering Physician: Sophie Delarosa NP Date of Service: 12/14/24 Procedure(s): US scrotum Accession Number(s): [id number] cc: Sophie Delarosa NP [address] [address] Patient Name: MARTI MORGAN MRN: [facility]:[id number] date: 1955 Sex: M Assigned Patient Location: Current Patient Location: US Accession/Order Number: [id number] Exam Date: 12/14/2024 20:49 Report Date: 12/14/2024 [...] Rosemary Em M.D.12/14/2024 8:59 PM Dictation Location: [place] [address] Electronically authenticated by: [id number] Y Date: 12/14/2024 20:59 Dictated By: Rosemary Em M.D. Signed By: 12/14/242101 DD/ 58 TD/TT: Laborer Aquatic Life: [facility] Radiology, Radiologi MD akin - 12/14/[address] [address] Ultrasound Report Signed Patient: MARTI MORGAN MR#: [id number] : 1955 Acct:[id number] Age/Sex: 69 / M ADM Date: 12/14/24 Loc: US Attending Dr: Sophie Delarosa NP Ordering Physician: Sophie Delarosa NP Date of Service: 12/14/24 Procedure(s): US scrotum Accession Number(s): [id number] cc: Sophie Delarosa NP The [address] [address] Patient Name: MARTI MORGAN MRN: [facility]:[id number] date: 1955 Sex: M Assigned Patient Location: US Current Patient Location: US Accession/Order Number: [id number] Exam Date: 12/14/2024 20:49 Report Date: 12/14/2024 [...] Rosemary Em M.D.12/14/2024 8:59 PM Dictation Location: [place] [address] Electronically authenticated by: [id number] Y Date: 12/14/2024 20:59 Dictated By: Rosemary Em M.D. Signed By: 12/14/242101 DD/ 58 TD/TT: Laborer Aquatic Life: [facility] Radiology Study observation (narrative) [facility] US Scrotum and testicleOrder ed By: Radiologist Radiology on 12-14-2024 [facility] Work Phone: No Panel Informationon 06-23 Barbara Messer NP 06/23/2024 8:12 AM L Inj/Asp: L knee on 06/23/2024 8:06 AM Indications: pain Details: 20 G needle, anterolateral approach Medications: 40 mg methylPREDNISolone acetate 40 MG/ML UTILIZING ASEPTIC TECHNIQUE PT GIVEN INJECTION IN LEFT KNEE, NEUROVASC INTACT S/P INJ, TOLERATED WELL Procedure, treatment alternatives, risks and benefits explained, specific risks discussed. Consent was given by the patient. [facility] CBC AUTO DIFFon 06-25-2022 BASO # 0.1 103/ul Normal 0.0-0.[address] [facility] Comment on above: Performed By: #### C BC #### [facility] [address] [place] [address] Dr. Renee Prado Basophils/100 WBC (Bld) 0.8 % Normal 0.2-2.[address] [facility] Comment on above: Performed By: #### C BC #### [facility] [address] [place] [address] Dr. Renee Prado EO # 0.3 103/ul Normal 0.0-0.[address] [facility] Comment on above: Performed By: #### C BC #### [facility] [address] [place] [address] Dr. Renee Prado Eosinophils/100 WBC (Bld) 3.3 % Normal 0.9-7.[address] [facility] Comment on above: Performed By: #### C BC #### [facility] [address] [place] [address] Dr. Renee Prado Erythrocyte distribution width (RBC) [Ratio] 13.9 % Normal 11.0-15.[address] [facility] Comment on above: Performed By: #### C BC #### [facility] [address] [place] [address] Dr. Renee Prado Hematocrit (Bld) [Volume fraction] 41.9 % Critically low 42.0-54.[address] [facility] Comment on above: Performed By: #### C BC #### [facility] [address] [place] [address] Dr. Renee Prado Hemoglobin (Bld) [Mass/Vol] 13.8 g/dL Critically low 14.0-18.[address] [facility] Comment on above: Performed By: #### C BC #### [facility] [address] [place] [address] Dr. Renee Prado IG # 0.02 10e3/ul Normal 0.00-0.[address] [facility] Comment on above: Performed By: #### C BC #### [facility] [address] [place] [address] Dr. Renee Prado IG % 0.2 % Normal 0.0-0.[address] [facility] Comment on above: Performed By: #### C BC #### [facility] [address] [place] [address] Dr. Renee Prado LYMPH # 1.8 103/ul Normal 1.2-3.[address] [facility] Comment on above: Performed By: #### C BC #### [facility] [address] [place] [address] Dr. Renee Prado Lymphocytes/100 WBC (Bld) 19.9 % Critically low 20.5-60.[address] [facility] Comment on above: Performed By: #### C BC #### [facility] [address] [place] [address] Dr. Renee Prado MANUAL DIFF REQ NO Normal [facility] Comment on above: Performed By: #### C BC #### [facility] [address] [place] [address] Dr. Renee Prado MCH (RBC) [Entitic mass] 28.9 pg Normal 25.9-34.[address] [facility] Comment on above: Performed By: #### C BC #### [facility] [address] [place] [address] Dr. Renee Prado MCHC (RBC) [Mass/Vol] 32.9 g/dL Normal 29.9-35.[address] [facility] Comment on above: Performed By: #### C BC #### [facility] [address] [place] [address] Dr. Renee Prado MCV (RBC) [Entitic vol] 87.7 fL Normal 80.0-94.[address] [facility] Comment on above: Performed By: #### C BC #### [facility] [address] [place] [address] Dr. Renee Prado MONO # 0.6 103/ul Normal 0.3-0.[address] [facility] Comment on above: Performed By: #### C BC #### [facility] [address] [place] [address] Dr. Renee Prado Monocytes/100 WBC (Bld) 6.8 % Normal 1.7-12.0 The [facility] Comment on above: Performed By: #### C BC #### [facility] [address] [place] [address] [address] Renee Prado NEUT # 6.1 103/ul Normal 1.4-6.[address] [facility] Comment on above: Performed By: #### C BC #### [facility] [address] [place] [address] [address] Renee Prado Neutrophils/100 WBC (Bld) 69.0 % Normal 43.0-75.[address] [facility] Comment on above: Performed By: #### C BC #### [facility] [address] [place] [address] [address] Renee Prado Platelet mean volume (Bld) [Entitic vol] 9.4 fL Critically low 9.5-13.[address] [facility] Comment on above: Performed By: #### C BC #### [facility] [address] [place] [address] Dr. Renee Prado PLT 269 103/ul Normal 150-[address] [facility] Comment on above: Performed By: #### C BC #### [facility] [address] [place] [address] Dr. Renee Prado RBC 4.78 106/ul Normal 4.70-6.[address] [facility] Comment on above: Performed By: #### C BC #### [facility] [address] [place] [address] Dr. Renee Prado WBC 8.9 103/ul Normal 4.0-11.[address] [facility] Comment on above: Performed By: #### C BC #### [facility] [address] [place] [address] Dr. Renee Prado CREATININE URINEon URINE CREAT 51.03 mg/dL Normal 20.00-300.00 [facility] Comment on above: Performed By: #### C REAU #### [facility] [address] [address] [address] Renee Prado GLYCOHEMOGLOBIN A1Con 2021 ADA RECOMMENDATION SEE BELOW Normal [facility] Comment on above: Result Comment: ADA RECOMMENDED LIMIT 4.0 - 6.0 ADA THERAPEUTIC TARGET < 7.0 ACTION SUGGESTED > 7.0 Performed By: #### A 1C #### [facility] [address] [place] [address] Dr. Renee Prado Glucose [Mass/Vol] 128 mg/dL Normal [facility] Comment on above: Performed By: #### A 1C #### [facility] [address] [place] [address] Dr. Renee Prado HbA1c (Bld) [Mass fraction] 6.1 % Normal 4.5-6.[address] [facility] Comment on above: Performed By: #### A 1C #### [facility] [address] [place] [address] Dr. Renee Prado LIPID PROFILEon 06-25-2022 CHOL-HDL RATIO NORM SEE BELOW Normal [facility] Comment on above: Result Comment: 3.3 - 4.4 LOW RISK 4.4 - 7.1 AVERAGE RISK 7.1 - 11.0 MODERATE RISK >11.0 HIGH RISK Performed By: #### C MP, LIPID #### [facility] [address] [place] [address] Dr. Renee Prado Cholesterol [Mass/Vol] 158 mg/dL Normal <=[address] [facility] Comment on above: Performed By: #### C MP, LIPID #### [facility] [address] [place] [address] Dr. Renee Prado Cholesterol in HDL [Mass/Vol] 51 mg/dL Normal 40-[address] [facility] Comment on above: Performed By: #### C MP, LIPID #### [facility] [address] [place] [address] Dr. Renee Prado Cholesterol in LDL [Mass/Vol] 92.6 mg/dL Normal [facility] Comment on above: Performed By: #### C MP, LIPID #### [facility] [address] [place] [address] Dr. Renee Prado Cholesterol.total/Ch olesterol in HDL [Mass ratio] 3.1 {ratio} Normal [facility] Comment on above: Performed By: #### C MP, LIPID #### [facility] [address] [address] [address] Renee Prado HDL NORMAL > or = 60 mg/dl - LO W CARDIOVASCULAR RISK <40 mg/dl - HIGH CARDIOVASCULAR RISK Normal [facility] Comment on above: Performed By: #### C MP, LIPID #### [facility] [address] [address] [address] Renee Prado LDL CALC NORMAL SEE BELOW Normal [facility] Comment on above: Result Comment: <100 mg/dl OPTIMAL 100 - 129 mg/dl NEAR OR ABOVE OPTIMAL 130 - 159 mg/dl BORDERLINE HIGH 160 - 189 mg/dl HIGH >190 mg/dl VERY HIGH Performed By: #### C MP, LIPID #### [facility] [address] [address] [address] Renee Prado Triglyceride [Mass/Vol] 72 mg/dL Normal <=[address] [facility] Comment on above: Performed By: #### C MP, LIPID #### [facility] [address] [address] [address] Renee Prado VLDL CALC 14.4 mg/dL Normal [facility] Comment on above: Performed By: #### C MP, LIPID #### [facility] [address] [place] [address] Dr. Renee Prado MICROALBUMIN, RAND URon 06-08 mALB <0.5 Normal <=30.[address] [facility] Comment on above: Performed By: #### M ALBR #### [facility] [address] [place] [address] Dr. Renee Prado PROF 14(COMP METB)on 022 Albumin [Mass/Vol] 4.0 g/dL Normal 3.4-5.0 [facility] Comment on above: Performed By: #### C MP, LIPID #### [facility] [address] [place] [address] Dr. Renee Prado Albumin/Globulin [Mass ratio] 1.3 {ratio} Normal [facility] Comment on above: Performed By: #### C MP, LIPID #### [facility] [address] [place] [address] Dr. Renee Prado ALP [Catalytic activity/Vol] 40 U/L Critically low 46-[address] [facility] Comment on above: Performed By: #### C MP, LIPID #### [facility] [address] [address] [address] Renee Prado ALT [Catalytic activity/Vol] 29 U/L Normal 16-[address] [facility] Comment on above: Performed By: #### C MP, LIPID #### [facility] [address] [address] [address] Renee Prado Anion gap [Moles/Vol] 8.4 mmol/L Normal [facility] Comment on above: Performed By: #### C MP, LIPID #### [facility] [address] [place] [address] Dr. Renee Prado AST [Catalytic activity/Vol] 16 U/L Normal 15-[address] [facility] Comment on above: Performed By: #### C MP, LIPID #### [facility] [address] [place] [address] Dr. Renee Prado Bilirubin [Mass/Vol] 0.5 mg/dL Normal 0.2-1.[address] [facility] Comment on above: Performed By: #### C MP, LIPID #### [facility] [address] [place] [address] Dr. Renee Prado Calcium [Mass/Vol] 9.4 mg/dL Normal 8.5-10.1 [facility] Comment on above: Performed By: #### C MP, LIPID #### [facility] [address] [place] [address] Dr. Renee Prado Chloride [Moles/Vol] 103 mmol/L Normal 98-[address] [facility] Comment on above: Performed By: #### C MP, LIPID #### [facility] [address] [address] [address] Renee Prado CO2 [Moles/Vol] 30.3 mmol/L Normal 21.0-32.0 [facility] Comment on above: Performed By: #### C MP, LIPID #### [facility] [address] [place] [address] Dr. Renee Prado Creatinine [Mass/Vol] 0.83 mg/dL Normal 0.70-1.30 [facility] Comment on above: Performed By: #### C MP, LIPID #### [facility] [address] [address] [address] Renee Prado EGFR-AF [place]IZ[place] >65 Normal >=60 [facility] Comment on above: Performed By: #### C MP, LIPID #### [facility] [address] [address] [address] Renee Prado EGFR-NON AF [place] CITIZ[place] >65 Normal >=[address] [facility] Comment on above: Performed By: #### C MP, LIPID #### [facility] [address] [place] [address] Dr. Renee Prado Globulin (S) [Mass/Vol] 3.2 g/dL Normal [facility] Comment on above: Performed By: #### C MP, LIPID #### [facility] [address] [place] [address] Dr. Renee Prado Glucose [Mass/Vol] 88 mg/dL Normal 74-106 [facility] Comment on above: Performed By: #### C MP, LIPID #### [facility] [address] [place] [address] Dr. Renee Prado Potassium [Moles/Vol] 3.7 mmol/L Normal 3.5-5.[address] [facility] Comment on above: Performed By: #### C MP, LIPID #### [facility] [address] [place] [address] Dr. Renee Prado Protein [Mass/Vol] 7.2 g/dL Normal 6.4-8.2 [facility] Comment on above: Performed By: #### C MP, LIPID #### [facility] [address] [place] [address] Dr. Renee Prado Sodium [Moles/Vol] 138 mmol/L Normal 136-145 [facility] Comment on above: Performed By: #### C MP, LIPID #### [facility] [address] [place] [address] Dr. Renee Prado Urea nitrogen [Mass/Vol] 12.0 mg/dL Normal 7.0-18.[address] [facility] Comment on above: Performed By: #### C MP, LIPID #### [facility] [id number] Renee Prado Urea nitrogen/Creatinine [Mass ratio] 14.5 mg/mg Normal [facility] Comment on above: Performed By: #### C MP, LIPID #### [facility] [id number] Renee Prado Vital Signs Date Time Vital Sign Value Performing Clinician Faci lity 04-12-2025 14:30-0400 Body mass index (BMI) [Ratio] 31.14 kg/m2 Sophieiram Delarosa INSTRUMENTATION INSTRUCTOR Work Phone: [facility] 04-12-2025 14:30-0400 Body temperature 98.49 [degF] Sophie Delarosa INSTRUMENTATION INSTRUCTOR Work Phone: [facility] 04-12-2025 14:30-0400 Body weight 116.03 kg Sophie Washington INSTRUMENTATION INSTRUCTOR Work Phone: [facility] 04-12-2025 14:30-0400 Diastolic blood pressure 76 mm[Hg] Sophie Donihchiaraz INSTRUMENTATION INSTRUCTOR Work Phone: [facility] 04-12-2025 14:30-0400 Heart rate 86 /min Sophie Donihchiaraz INSTRUMENTATION INSTRUCTOR Work Phone: [facility] 04-12-2025 14:30-0400 Respiratory rate 22 /min Sophie Geethaz INSTRUMENTATION INSTRUCTOR Work Phone: [facility] 04-12-2025 14:30-0400 SaO2% (BldA) [Mass fraction] 96 % Sophie Washington INSTRUMENTATION INSTRUCTOR Work Phone: [facility] 04-12-2025 14:30-0400 Systolic blood pressure 138 mm[Hg] Sophie Washington INSTRUMENTATION INSTRUCTOR Work Phone: [facility] 01-25-2025 14:45-0400 Body temperature 96.98 [degF] Drew HIRSCH [facility] 01-25-2025 14:45-0400 Diastolic blood pressure 77 mm[Hg] Drew HIRSCH [facility] 01-25-2025 14:45-0400 Heart rate 74 /min Drew HIRSCH [facility] 01-25-2025 14:45-0400 Respiratory rate 16 /min Drew HIRSCH [facility] 01-25-2025 14:45-0400 Systolic blood pressure 136 mm[Hg] Drew HIRSCH [facility] 12-13-2024 10:09-0400 Body mass index (BMI) [Ratio] 28.73 kg/m2 Sophie Delarosa INSTRUMENTATION INSTRUCTOR Work Phone: [facility] 12-13-2024 10:09-0400 Body temperature 98.49 [degF] Sophie Delarosa INSTRUMENTATION INSTRUCTOR Work Phone: [facility] 12-13-2024 10:09-0400 Body weight 107.05 kg Sophie Delarosa INSTRUMENTATION INSTRUCTOR Work Phone: [facility] 12-13-2024 10:09-0400 Diastolic blood pressure 82 mm[Hg] Sophie Delarosa INSTRUMENTATION INSTRUCTOR Work Phone: [facility] 12-13-2024 10:09-0400 Heart rate 72 /min Sophie Delarosa INSTRUMENTATION INSTRUCTOR Work Phone: [facility] 12-13-2024 10:09-0400 Respiratory rate 18 /min Sophie Delarosa INSTRUMENTATION INSTRUCTOR Work Phone: [facility] 12-13-2024 10:09-0400 SaO2% (BldA) [Mass fraction] 98 % Sophie Delarosa INSTRUMENTATION INSTRUCTOR Work Phone: [facility] 12-13-2024 10:09-0400 Systolic blood pressure 128 mm[Hg] Sophie Delarosa INSTRUMENTATION INSTRUCTOR Work Phone: [facility] 08-24-2024 15:25-0500 Body height 193 cm Zoraida Chavez INSTRUMENTATION INSTRUCTOR Work Phone: [facility] 08-24-2024 15:25-0500 Body mass index (BMI) [Ratio] 28.61 kg/m2 Zoraida Chavez INSTRUMENTATION INSTRUCTOR Work Phone: [facility] 08-24-2024 15:25-0500 Body temperature 96.6 [degF] Zoraida Chavez INSTRUMENTATION INSTRUCTOR Work Phone: [facility] 08-24-2024 15:25-0500 Body weight 106.59 kg Zoraida Chavez INSTRUMENTATION INSTRUCTOR Work Phone: [facility] 08-24-2024 15:25-0500 Diastolic blood pressure 70 mm[Hg] Zoraida Chavez INSTRUMENTATION INSTRUCTOR Work Phone: [facility] 08-24-2024 15:25-0500 Heart rate 79 /min Zoraida Chavez INSTRUMENTATION INSTRUCTOR Work Phone: [facility] 08-24-2024 15:25-0500 Respiratory rate 16 /min Zoraida Chavez INSTRUMENTATION INSTRUCTOR Work Phone: [facility] 08-24-2024 15:25-0500 SaO2% (BldA) [Mass fraction] 97 % Zoraida Chavez INSTRUMENTATION INSTRUCTOR Work Phone: [facility] 08-24-2024 15:25-0500 Systolic blood pressure 122 mm[Hg] Zoraida Chavez INSTRUMENTATION INSTRUCTOR Work Phone: [facility] 10-09-2023 11:45-0500 Diastolic blood pressure 69 mm[Hg] [facility] 10-09-2023 11:45-0500 Heart rate 69 /min [facility] 10-09-2023 11:45-0500 Respiratory rate 18 /min [facility] 10-09-2023 11:45-0500 SaO2% (BldA) [Mass fraction] 99 % [facility] 10-09-2023 11:45-0500 Systolic blood pressure 116 mm[Hg] [facility] 10-09-2023 09:23-0500 Body height 193.04 cm [facility] 10-09-2023 [id number] Body weight 108.86 kg [facility] 2023 10:47-0400 Blood Pressure Location CLARISSA SIERRA [facility] 2023 10:47-0400 Diastolic blood pressure 80 mm[Hg] CLARISSA SIERRA [facility] 2023 10:47-0400 Heart rate 78 /min CLARISSA SIERRA [facility] 2023 10:47-0400 Respiratory rate 16 /min CLARISSA SIERRA [facility] 2023 10:47-0400 Systolic blood pressure 132 mm[Hg] CLARISSA SIERRA [facility] Encounters Encounter Date Encounter Type Care Provider Facility Start: 11-11-2025 ambulatory Drew HIRSCH Facili ty:[facility] Start: 08-08-2025 ambulatory Drew HIRSCH Facili ty:[facility] Start: 05-13-2025 End: 05-13-2025 ambulatory Drew HIRSCH Facility:[facility] Start: 05-13-2025 End: 05-13-2025 Patient encounter procedure Drew HIRSCH [facility] Start: 05-03-2025 End: 05-03-2025 Refill Sophie Delarosa INSTRUMENTATION INSTRUCTOR Work Phone: [facility] Comment on above: Acute rhinitis Iron deficiency Start: 04-14-2025 End: 04-14-2025 ambulatory Drew Hirsch [facility] Work Phone: Start: 04-14-2025 End: 04-14-2025 Departed Referred Drew Hirsch MD -[facility] Start: 04-14-2025 End: 04-14-2025 ambulatory Drew HIRSCH Facility:[id number] Start: 04-12-2025 End: 04-12-2025 Office outpatient visit 25 minutes Sophie Delarosa INSTRUMENTATION INSTRUCTOR Work Phone: [facility] Comment on above: Prediabetes (Primary Dx); Primary hypertension ; Hydrocele in adult; Acute non-recurrent maxillary sinusitis; Lymphocytopenia Start: 04-12-2025 End: 04-12-2025 Bamboo flowsheet Sophie Delarosa INSTRUMENTATION INSTRUCTOR Work Phone: [facility] Start: 04-12-2025 End: 04-12-2025 Bamboo flowsheet Sophie Delarosa INSTRUMENTATION INSTRUCTOR Work Phone: [facility] Start: 04-11-2025 ambulatory Drew HIRSCH Facili ty:[facility] Start: 04-04-2025 End: 04-04-2025 Refill Shen Perez MD Work Phone: [facility] Comment on above: Iron deficiency Start: 03-26-2025 End: 03-26-2025 Clinisync Result Encounter Generic External Data Provider [facility] Unsolicited Start: 03-26-2025 End: 03-26-2025 Clinisync Result Encounter Generic External Data Provider [facility] External [facility] Unsolicited Start: 03-18-2025 End: 03-18-2025 ambulatory [facility] Start: 03-18-2025 End: 03-18-2025 Encounter for other preprocedural examination [facility] Start: 03-16-2025 End: 03-16-2025 Orders Only Sophie Washington INSTRUMENTATION INSTRUCTOR Work Phone: [facility] Comment on above: Abnormal EKG (Primar y Dx) Start: 03-14-2025 End: 03-14-2025 Clinisync Result Encounter Generic External Data Provider [facility] Unsolicited Start: 03-14-2025 End: 03-14-2025 Clinisync Result Encounter Generic External Data Provider [facility] External [facility] Unsolicited Start: 03-07-2025 End: 03-07-2025 ambulatory Drew HIRSCH Facility:[facility] Start: 03-07-2025 End: 03-07-2025 Patient encounter procedure Drew HIRSCH [facility] Start: 03-06-2025 End: 03-06-2025 Refill Shen Perez MD Work Phone: [facility] Comment on above: Other chronic pain Start: 03-05-2025 End: 03-06-2025 Refill Shen Perez MD Work Phone: [facility] Comment on above: BPH with urinary obs truction Start: 02-25-2025 End: 02-25-2025 Refill Shen Perez MD Work Phone: [facility] Comment on above: Prediabetes Start: 02-23-2025 End: 02-23-2025 Refill Shen Perez MD Work Phone: [facility] Comment on above: Hyperlipidemia, unsp ecified hyperlipidemia type Start: 02-09-2025 End: 02-10-2025 Clinisync Result Encounter Generic External Data Provider [facility] External [facility] Unsolicited Start: 02-09-2025 End: 02-10-2025 Clinisync Result Encounter Generic External Data Provider [facility] External [facility] Unsolicited Start: 01-25-2025 End: 01-25-2025 ambulatory Drew HIRSCH Facility:[facility] Start: 01-25-2025 End: 01-25-2025 Patient encounter procedure Drew HIRSCH [facility] Start: 01-12-2025 End: 01-12-2025 Refill Shen Perez MD Work Phone: [facility] Comment on above: Primary hypertension (CMS/HCC) Start: 01-03-2025 End: 01-03-2025 Refill Shen Perez MD Work Phone: [facility] Comment on above: Acute rhinitis Start: 12-18-2024 End: 12-18-2024 Clinisync Result Encounter Sophie Delarosa INSTRUMENTATION INSTRUCTOR Work Phone: [facility] Unsolicited Start: 12-18-2024 End: 12-18-2024 Clinisync Result Encounter Sophie Delarosa INSTRUMENTATION INSTRUCTOR Work Phone: [facility] Unsolicited Start: 12-17-2024 End: 12-17-2024 Orders Only Sophie Washington INSTRUMENTATION INSTRUCTOR Work Phone: [facility] Comment on above: Hydrocele in adult ( Primary Dx); Swelling of left half of scrotum Start: 12-14-2024 End: 12-14-2024 Clinisync Result Encounter Sophie Delarosa INSTRUMENTATION INSTRUCTOR Work Phone: [facility] Unsolicited Start: 12-14-2024 End: 12-14-2024 Clinisync Result Encounter Sophie Washington INSTRUMENTATION INSTRUCTOR Work Phone: [facility] Unsolicited Start: 12-13-2024 End: 12-13-2024 Bamboo flowsheet Sophie Delarosa INSTRUMENTATION INSTRUCTOR Work Phone: [facility] Start: 12-13-2024 End: 12-13-2024 Bamboo flowsheet Sophie Delarosa INSTRUMENTATION INSTRUCTOR Work Phone: [facility] Start: 12-13-2024 End: 12-13-2024 Office outpatient visit 25 minutes Sophie Marionhholz INSTRUMENTATION INSTRUCTOR Work Phone: [facility] Comment on above: Swelling of left carmela f of scrotum (Primary Dx); Primary hypertension (CMS/HCC); BPH with urinary obstruction; Erectile dysfunction, unspecified erectile dysfunction type; Prediabetes; Iron deficiency anemia, unspecified iron deficiency anemia type; Mixed hyperlipidemia (CMS/HCC); Screening for prostate cancer; MAR (obstructive sleep apnea) Start: 12-13-2024 End: 12-13-2024 ambulatory SOPHIE WASHINGTON Not Available Start: 09-05-2024 End: 09-08-2024 Refill Zoraida Chavez INSTRUMENTATION INSTRUCTOR Work Phone: [facility] Comment on above: Prediabetes Start: 08-30-2024 End: 08-30-2024 Refill Zoraida Chavez INSTRUMENTATION INSTRUCTOR Work Phone: [facility] Comment on above: Primary hypertension (CMS/HCC) Start: 08-24-2024 End: 08-24-2024 Office outpatient visit 15 minutes Zoraida Chavez INSTRUMENTATION INSTRUCTOR Work Phone: [facility] Comment on above: Primary hypertension (CMS/HCC) (Primary Dx); Iron deficiency; Other chronic pain; BPH with urinary obstruction; Prediabetes; Mixed hyperlipidemia (CMS/HCC); Acute rhinitis Start: 08-24-2024 End: 08-24-2024 ambulatory ZORAIDA CHAVEZ Not Available Start: 08-24-2024 End: 08-24-2024 Bamboo flowsheet Zoraida Chavez INSTRUMENTATION INSTRUCTOR Work Phone: [facility] Start: 08-24-2024 End: 08-24-2024 Bamboo flowsheet Zoraida Chavez INSTRUMENTATION INSTRUCTOR Work Phone: [facility] Start: 08-12-2024 End: 08-12-2024 Refill Zoraida Chavez INSTRUMENTATION INSTRUCTOR Work Phone: [facility] Comment on above: Other chronic pain Start: 08-12-2024 End: 08-12-2024 Refill Zoraida Chavez INSTRUMENTATION INSTRUCTOR Work Phone: [facility] Comment on above: TIA (transient ische harley attack) Start: 08-10-2024 End: 08-10-2024 Refill Christi Bond MA [facility] Comment on above: Hyperlipidemia, unsp ecified hyperlipidemia type (CMS/HCC) Start: 07-14-2024 End: 07-14-2024 Refill Christi Bond MA [facility] Comment on above: Other chronic pain Start: 07-12-2024 End: 07-12-2024 Refill Zoraida Chavez INSTRUMENTATION INSTRUCTOR Work Phone: [facility] Comment on above: Primary hypertension (CMS/HCC) Start: 06-23-2024 End: 06-23-2024 Bamboo flowsheet Barbara B Apling INSTRUMENTATION INSTRUCTOR Work Phone: [facility] Start: 06-23-2024 End: 06-23-2024 Bamboo flowsheet Barbara B Apling INSTRUMENTATION INSTRUCTOR Work Phone: [facility] Start: 06-23-2024 End: 06-23-2024 Office outpatient visit 25 minutes Barbara B Apling INSTRUMENTATION INSTRUCTOR Work Phone: [facility] Comment on above: Left knee pain, unsp ecified chronicity (Primary Dx); Arthritis of left knee Start: 06-23-2024 End: 06-23-2024 ambulatory BARBARA B APLING Not Available Start: 06-21-2024 End: 06-21-2024 Refill Wendy Lewis [facility] Comment on above: Iron deficiency Start: 03-29-2024 End: 03-29-2024 ambulatory BARBARA B APLING Not Available Start: 03-15-2024 End: 03-15-2024 ambulatory BARBARA B APLING Not Available Start: 03-08-2024 End: 03-08-2024 ambulatory BARBARA B APLING Not Available Start: 02-25-2024 End: 02-25-2024 ambulatory SHAIKH BREANNA Not Available Start: 10-09-2023 Non-patient / Non-visit [facility] Physician [facility] G[facility]enter[facility] Work Phone: Start: 09-03-2023 Orders Only Shaikh Breanna WEAVER Work Phone: INTERFACE-ONLY [facility] Comment on above: Anemia, unspecified Start: 08-26-2023 Patient encounter status Wendy Lewis [facility] Start: 2023 End: 2023 Patient encounter procedure CLARISSA SIERRA [facility] Start: 06-25-2022 End: 06-26-2022 ambulatory SHAIKH Best CARLOS Facility:[facility] Procedures Date Procedure Procedure Detail Performing Clinician Start: 04-12-2025 Hemoglobin glycosyla jackie a1c Sophie Delarosa INSTRUMENTATION INSTRUCTOR Work Phone: Start: 03-26-2025 CA ECHO DOPPLER COMPLETE Generic External Data Provider Start: 03-14-2025 ALL BASIC METABOLIC PANEL Generic External Data Provider Start: 03-14-2025 ECG 12-LEAD Generic Ex ternal Data Provider Start: 02-09-2025 Us scrotum & contents G eneric External Data Provider Start: 01-25-2025 Flexible cystoscope (physical object) Drew HIRSCH Start: 12-18-2024 ALL CBC WITH AUTO DIFF Sophie Delarosa INSTRUMENTATION INSTRUCTOR Work Phone: Start: 12-14-2024 Us scrotum & contents L jenny Washington INSTRUMENTATION INSTRUCTOR Work Phone: Start: 06-23-2024 Arthrocentesis aspir &/inj major jt/bursa w/o us Barbara B Apling INSTRUMENTATION INSTRUCTOR Work Phone: Start: 02-27-2023 Microalbumin [Mass/v olume] in Urine by Test strip Shaikh Breanna WEAVER Work Phone: Start: 06-25-2022 PSA screening SHAIKH DUNCAN ORDONEZ Comment on above: Performed By: #### P SAD #### [facility] [address] [place], [place] [address] Dr. Renee Prado Start: 10-07-2017 Colonoscopy Wendy sims Carpal tunnel syndro me (disorder) CLARISSA SIERRA Colonoscopy CLARISSA SIERRA H/O: surgery Status post repa ir of hydrocele Drew HIRSCH Tonsillectomy CLARISSA SIERRA Plan of Treatment Date Care Activity Detail Author Start: 06-30-2030 DTaP,Tdap and Td Vaccines (2 - Td or Tdap) DTaP,Tdap and Td Vaccines (2 - Td or Tdap) [facility] Start: 10-07-2027 Screening for malign ant neoplasm of colon [facility] Start: 12-18-2025 Urine screening for protein Diabetes: Urine Protein Screening [facility] Start: 08-18-2025 Glaucoma screening Diabetes: R etinopathy Screening [facility] Start: 07-14-2025 End: 07-14-2025 Patient encounter procedure 07/14/2025 1:20 PM EST Office Visit [facility] [address] [place] [id number] Sophie Delarosa NP [address] [place] [id number] [facility] Start: 05-13-2025 End: 04-12-2026 CBC W Auto Differential panel - Blood CBC and differential Lab Routine Lymphocytopenia Expected: 05/13/2025 (Approximate), Expires: 04/12/2026 [facility] Work Phone: Comment on above: Expected: 05/13/2025 (Approximate), Expires: 04/12/2026 Start: 05-09-2025 Influenza vaccination Influenza Vacc ine (#1) [facility] Start: 04-12-2025 End: 04-12-2025 Patient encounter procedure [facility] Comment on above: Primary hypertension (Primary Dx); Hydrocele in adult; Prediabetes Start: 03-16-2025 End: 03-16-2026 ECG 12 lead ECG 12 lead ECG Routine Abnormal EKG Expected: 03/16/2025 (Approximate), Expires: 03/16/2026 [facility] Work Phone: Comment on above: Expected: 03/16/2025 (Approximate), Expires: 03/16/2026 Start: 03-14-2025 End: 03-14-2025 Patient encounter procedure 03/14/2025 3:20 PM EDT Office Visit [facility] [address] [place] [address] Sophie Delarosa, INSTRUMENTATION INSTRUCTOR [address] [place] [address] [facility] Start: 02-23-2025 End: 02-23-2025 Patient encounter procedure [facility] Start: 12-13-2024 End: 12-13-2025 CBC W Auto Differential panel - Blood CBC and differential Lab Routine Iron deficiency anemia, unspecified iron deficiency anemia type Expected: 12/13/2024 (Approximate), Expires: 12/13/2025 [facility] Work Phone: Comment on above: Expected: 12/13/2024 (Approximate), Expires: 12/13/2025 Start: 12-13-2024 End: 12-13-2025 Comprehensive metabolic 2000 panel - Serum or Plasma Comprehensive metabolic panel Lab Routine Primary hypertension ([facility]/HCC) Prediabetes Mixed hyperlipidemia (CMS/HCC) Expected: 12/13/2024 (Approximate), Expires: 12/13/2025 [facility] Comment on above: Expected: 12/13/2024 (Approximate), Expires: 12/13/2025 Start: 12-13-2024 End: 12-13-2025 Ferritin [Mass/volume] in Serum or Plasma Ferritin Lab Routine Iron deficiency anemia, unspecified iron deficiency anemia type Expected: 12/13/2024 (Approximate), Expires: 12/13/2025 [facility] Comment on above: Expected: 12/13/2024 (Approximate), Expires: 12/13/2025 Start: 12-13-2024 End: 12-13-2025 Hemoglobin A1c/Hemoglobin.total in Blood Hemoglobin A1c Lab Routine Prediabetes Expected: 12/13/2024 (Approximate), Expires: 12/13/2025 [facility] Comment on above: Expected: 12/13/2024 (Approximate), Expires: 12/13/2025 Start: 12-13-2024 End: 12-13-2025 Iron + transferrin + TIBC Iron + transferrin + TIBC Lab Routine Iron deficiency anemia, unspecified iron deficiency anemia type Expected: 12/13/2024 (Approximate), Expires: 12/13/2025 [facility] Comment on above: Expected: 12/13/2024 (Approximate), Expires: 12/13/2025 Start: 12-13-2024 End: 12-13-2025 Lipid 1996 panel - Serum or Plasma Lipid panel Lab Routine Mixed hyperlipidemia (CMS/HCC) Expected: 12/13/2024 (Approximate), Expires: 12/13/2025 [facility] Comment on above: Expected: 12/13/2024 (Approximate), Expires: 12/13/2025 Start: 12-13-2024 End: 12-13-2025 Microalbumin/Creatinine panel in random Urine Microalbumin / creatinine, urine ratio Lab Routine Primary hypertension (CMS/HCC) Prediabetes Expected: 12/13/2024 (Approximate), Expires: 12/13/2025 [facility] Comment on above: Expected: 12/13/2024 (Approximate), Expires: 12/13/2025 Start: 12-13-2024 End: 12-13-2025 Prostate specific Ag [Mass/volume] in Serum or Plasma PSA Lab Routine Screening for prostate cancer Expected: 12/13/2024 (Approximate), Expires: 12/13/2025 [facility] Comment on above: Expected: 12/13/2024 (Approximate), Expires: 12/13/2025 Start: 12-13-2024 End: 12-13-2025 Urinalysis complete panel - Urine Urinalysis with reflex microscopic (clean catch) Lab Routine Primary hypertension (CMS/HCC) Prediabetes Expected: 12/13/2024 (Approximate), Expires: 12/13/2025 [facility] Comment on above: Expected: 12/13/2024 (Approximate), Expires: 12/13/2025 Start: 12-13-2024 End: 12-13-2025 US Scrotum and testicle US scrotum Imaging High Priority Swelling of left half of scrotum Expected: 12/13/2024 (Approximate), Expires: 12/13/2025 [facility] Comment on above: Expected: 12/13/2024 (Approximate), Expires: 12/13/2025 Start: 12-13-2024 End: 12-13-2024 Patient encounter procedure 12/13/2024 10:00 AM EDT Office Visit [facility] [address] [place] [address] Sophie Delarosa NP [address] [place] [address] Primary hypertension (CMS/HCC) (Primary Dx); BPH with urinary obstruction; Erectile dysfunction, unspecified erectile dysfunction type; Prediabetes; Iron deficiency anemia, unspecified iron deficiency anemia type; Mixed hyperlipidemia (CMS/HCC); Screening for prostate cancer; Swelling of left testicle [facility] Comment on above: Primary hypertension (CMS/HCC) (Primary Dx); BPH with urinary obstruction; Erectile dysfunction, unspecified erectile dysfunction type; Prediabetes; Iron deficiency anemia, unspecified iron deficiency anemia type; Mixed hyperlipidemia (CMS/HCC); Screening for prostate cancer; Swelling of left testicle Start: 08-24-2024 End: 08-24-2024 Patient encounter procedure [facility] Comment on above: Arrived Start: 08-23-2024 End: 08-23-2024 Patient encounter procedure 08/23/2024 8:00 AM EST Office Visit [facility] [address] [place] [address] Barbara Messer NP [address] [place] [address] [facility] Start: 06-23-2024 End: 06-23-2024 Patient encounter procedure [facility] Comment on above: Left knee pain, unsp ecified chronicity (Primary Dx); Arthritis of left knee Start: 05-09-2024 Influenza vaccination Influenza Vacc ine (#1) [facility] Start: 02-29-2024 Urine screening for protein Diabetes: Urine Protein Screening [facility] Start: 02-28-2024 Urine screening for protein Urine Microalbumin [facility] Start: 10-09-2023 [facility] Start: 09-03-2023 End: 09-03-2024 Ferritin [Mass/volume] in Serum or Plasma Ferritin Lab Routine Anemia, unspecified Expected: 09/03/2023, Expires: 09/03/2024 [facility] Phone: Comment on above: Expected: 09/03/2023 , Expires: 09/03/2024 Start: 03-01-2023 Adult BMI Screening Adult BMI Screen ing [facility] Start: 03-01-2023 Tobacco Screening Tobacco Screening [facility] Start: 2022 Fall Risk Screening Fall Risk Screen ing [facility] Start: 1975 Diabetic foot examination Diabetic Foot Exam [facility] Start: 1969 Depression Screening Depression Scre ening [facility] Start: 1957 Glaucoma screening Diabetic Op hthalmology Exam [facility] Start: 1957 Medicare Annual Wellness Visit Medicare Annual Wellness Visit [facility] Start: 1957 Screening for malign ant neoplasm of colon [facility] Microalbumin/Creatin ine panel in random Urine Microalbumin / creatinine urine ratio Lab Routine Primary hypertension (CMS/HCC) Ordered: 08/24/2024 [facility] Work Phone: Comment on above: Ordered: 08/24/2024 Immunizations Immunization Date Immunization Notes Care Provider Fa matthew 07-10-2024 influenza virus vaccine, unspecified formulation Drew HIRSCH [facility] 07-10-2024 influenza, high dose seasonal, preservative-free Shen Perez MD Work Phone: [facility] 06-08-2024 influenza virus vaccine, unspecified formulation Drew HIRSCH [facility] Comment on above: Result Comment: 2024: [facility] 06-08-2024 influenza, seasonal, injectable Zoraida Broussardpatrick INSTRUMENTATION INSTRUCTOR Work Phone: [facility] 09-13-2023 Pneumococcal Conjuga te PCV 20 Wendy Debbie [facility] 08-15-2023 RSV vaccine preF3, recombinant Drew HIRSCH [facility] 08-15-2023 RSV, recombinant, protein subunit RSVpreF, adjuvant reconstitu, 120mcg/0.5mL, PF (Arexvy) Wendy Debbie [facility] 06-22-2023 Influenza, Seasonal, Quadrivalent, Adjuvanted Wendy Debbie [facility] 06-22-2023 influenza virus vaccine, unspecified formulation Wendywesley Lewis [facility] 07-04-2022 SARS-CoV-2 (COVID-19 ) [id number] CLARISSA MARIELA [facility] 06-15-2022 influenza virus vaccine, unspecified formulation CLARISSACOOPER SIERRA [facility] 06-15-2022 Influenza, Seasonal, Quadrivalent, Adjuvanted Wendy Lewis [facility] 12-07-2020 SARS-CoV-2 (COVID-19 ) mRNA BNT-162b2 vax CLARISSACOOPER SIERRA [facility] 11-17-2020 SARS-CoV-2 (COVID-19 ) mRNA BNT-162b2 vax CLARISSACOOPER SIERRA [facility] Comment on above: Result Comment: 2022: [id number] 06-30-2020 influenza virus vaccine, unspecified formulation CLARISSA SIERRA [facility] 06-30-2020 influenza, injectabl e, quadrivalent, preservative free Wendy Debbie [facility] 06-30-2020 tetanus toxoid, reduced diphtheria toxoid, and acellular pertussis vaccine, adsorbed CLARISSA MARIELA [facility] 03-15-2020 zoster vaccine recombinant CLARISSA MARIELA [facility] 10-11-2019 zoster vaccine recombinant CLARISSA MARIELA [facility] 07-29-2019 influenza virus vaccine, unspecified formulation CLARISSA MARIELA [facility] 07-29-2019 influenza, injectabl e, quadrivalent, preservative free Wendy Debbie [facility] 07-17-2018 influenza virus vaccine, unspecified formulation CLARISSA MARIELA [facility] 07-17-2018 Influenza, injectabl e, Madin Rosalind Canine Kidney, preservative free, quadrivalent Wendy Debbie [facility] 12-19-2016 zoster vaccine, live JENNIFE R MARIELA [facility] 09-18-2009 novel [id number], preservative-free, injectable Wendy Debbie [facility] Payers Date Payer Category Payer Self-pay 2025 Private Health Insurance [id number] 2017 Private Health Insurance [id number] 1959 Private Health Insurance [id number] 1957 Unknown [id number] 2.16.84 [id number] 1957 Unknown [id number] 2.16.84 0.1.051534.3.579.2.1259 1957 Unknown [id number] 2.16.84 0.1.224970.3.579.2.1258 1957 Unknown [id number] 2.16.84 0.1.853740.3.579.2.1258 1957 Unknown [id number] 2.16.84 0.1.273423.3.579.2.1258 1957 Unknown [id number] 2.16.84 0.1.339570.3.579.2.1258 1957 Unknown [id number] 2.16.84 0.1.060702.3.579.2.1258 1957 Unknown [id number] 2.16.84 0.1.788755.3.579.2.1258 1957 Unknown [id number] 2.16.8 40.1.474972.3.579.2. 1957 Unknown [id number] 2.16.8 40.1.488089.3.579.2. 1957 Unknown [id number] 2.16.8 40.1.089171.3.579.2. 1957 Unknown [id number] 2.16.8 40.1.397065.3.579.2. 1957 Unknown [id number] 2.16.8 40.1.627078.3.579.2. 1957 Unknown [id number] 2.16.8 40.1.089841.3.579.2.72 1957 Unknown [id number] 2.16.8 40.1.239229.3.579.2. 1957 Unknown [id number] 2.16.8 40.1.983766.3.579.2.72 Unknown [facility] [id number] Unknown [id number] 2.16.8 [id number] Social History Date Type Detail Facility Start: 2023 End: 05-13-2025 Tobacco smoking status Never smoked tobacco (finding) [facility] Tobacco smoking status Never [facility] Start: 08-25-2023 End: 04-12-2025 Sex Assigned At Male [facility] Start: 1955 Sex Assigned At Male [facility] Start: 12-03-2021 End: 02-25-2024 Tobacco use and exposure Smokeless tobacco non-user [facility] Start: 03-29-2024 End: 04-12-2025 Alcoholic beverage intake Lifetime non-drinker (finding) [facility] Start: 08-25-2023 End: 04-12-2025 History of Social function [facility] Within the last year , have you been afraid of your partner or ex-partner? No [facility] Do you belong to any clubs or organizations such as christian groups, unions, fraternal or athletic groups, or [...] Sex assigned at Not on file [facility] Start: 03-01-2022 Alcohol intake [facility]finding[facility] Sexual Orientation [facility] Sex Male (finding) [facility] NEGATED: Highlighted rowStart: NINF History of tobacco use Passive smoker [facility] Functional Status Date Assessment Result Facility 01-25-2025 Functional Status N/A [facility] 2023 Functional Status N/A [facility] Clinical Notes 2023 to 05-13-2025 Sophie Delarosa NP - 04/12/2025 3:23 PM EDYVAN FINLEY - 04/12/2025 2:20 PM Jules Delarosa NP - 04/12/2025 2:20 PM Jules Delarosa NP - 04/12/2025 7:06 AM EDTPatient Instructions Note Date & Type Note Facility 05-13-2025 Hospital Discharge instructions Patient Education 05/13/2025 09:35:31 Hydrocelectomy, Adult, Care After Hydrocelectomy, Adult, Care After The following information offers guidance on how to care for yourself after your procedure. Your health care provider may also give you more specific instructions. If you have problems or questions, contact your health care provider. What can I expect after the procedure? After your procedure, it is common to have: Mild discomfort and swelling in the pouch that holds your testicles (scrotum). Bruising of the scrotum. Follow these instructions at home: Medicines Take mwbu-cgn-mwxdmux and prescription medicines only as told by your health care provider. Ask your health care provider if the medicine prescribed to you: ?Requires you to avoid driving or using machinery. ?Can cause constipation. You may need to take these actions to prevent or treat constipation: ?Drink enough fluid to keep your urine pale yellow. ?Take qfdk-htz-ueeozex or prescription medicines. ?Eat foods that are high in fiber, such as beans, whole grains, and fresh fruits and vegetables. ?Limit foods that are high in fat and processed sugars, such as fried or sweet foods. Bathing Do not take baths, swim, or use a hot tub until your health care provider approves. Ask your health care provider if you may take showers. You may only be allowed to take sponge baths. If you were told to wear an athletic support strap (scrotal support), keep it dry. Take it off when you shower or bathe. Incision care Follow instructions from your health care provider about how to take care of your incision. Make sure you: ?Wash your hands with soap and water for at least 20 seconds before and after you change your bandage (dressing). If soap and water are not available, use hand paper tube machine operator. ?Change your dressing as told by your health care provider. ?Leave stitches (sutures), skin glue, or adhesive strips in place. These skin closures may need to stay in place for 2 weeks or longer. If adhesive strip edges start to loosen and curl up, you may trim the loose edges. Do not remove adhesive strips completely unless your health care provider tells you to do that. Check your incision and scrotum every day for signs of infection. Check for: ?More redness, swelling, or pain. ?Fluid or blood. ?Warmth. ?Pus or a bad smell. Managing pain and swelling If directed, put ice on the affected area. To do this: Put ice in a plastic bag. Place a towel between your skin and the bag. Leave the ice on for 20 minutes, 2 3 times per day. Remove the ice if your skin turns bright red. This is very important. If you cannot feel pain, heat, or cold, you have a greater risk of damage to the area. Activity Do not lift anything that is heavier than 10 lb (4.5 kg) until your health care provider says that it is safe. If you were given a sedative during the procedure, it can affect you for several hours. Do not drive or operate machinery until your health care provider says that it is safe. Ask your health care provider when it is safe to drive. Return to your normal activities as told by your health care provider. Ask your health care provider what activities are safe for you. General instructions Do not use any products that contain nicotine or tobacco. These products include cigarettes, chewing tobacco, and vaping devices, such as e-cigarettes. These can delay healing after surgery. If you need help quitting, ask your health care provider. If you were given a scrotal support, wear it as told by your health care provider. Keep all follow-up visits. This is important. If you had a drain put in during the procedure, you will need to have it removed at a follow-up visit. Contact a health care provider if: Your pain is not controlled with medicine. You have more redness, swelling, or pain around your scrotum. You have fluid or blood coming from your incision. Your incision feels warm to the touch. You have pus or a bad smell coming from your incision. You have a fever. Get help right away if: You develop shaking, chills, and a fever that is higher than 101.8 F (38.8 C). You have redness or swelling that starts at your scrotum and spreads outward to your whole groin. You develop swelling in your legs. You have difficulty breathing. These symptoms may be an emergency. Get help right away. Call 911. Do not wait to see if the symptoms will go away. Do not drive yourself to the hospital. Summary After a hydrocelectomy, it is common to have mild discomfort, swelling, and bruising. Do not take baths, swim, or use a hot tub until your health care provider approves. Ask your health care provider if you may take showers. If directed, put ice on the affected area to help with pain and swelling. Do not lift anything that is heavier than 10 lb (4.5 kg) until your health care provider says that it is safe. Return to your normal activities as told by your health care provider. If you were given a scrotal support, keep it dry. Wear the scrotal support as told by your health care provider. This information is not intended to replace advice given to you by your health care provider. Make sure you discuss any questions you have with your health care provider. Document Revised: 04/11/2022 Document Reviewed: 04/11/2022 [employer] Patient Education 2023 [employer]. Follow Up Care 04/05/2025 08:41:06 With:BETO WEAV[employer], [employer], URL Address: [address] [place] [address] When: Unknown Comments:6 mos [facility] 05-13-2025 Note Patient Education Urology Hydrocelectomy, Adult, Care After [...] these instructions at home: Medicines ??? Take loak-vxe-bdzpcey and prescription medicines only as told by your health care provider. ??? Ask your health care provider if the medicine prescribed to you: ? Requires you to avoid driving or using machinery. ? Can cause constipation. You may need to take these actions to prevent or treat constipation: ? Drink enough fluid to keep your urine pale yellow. ? Take grqf-kzl-zccmvhr or prescription medicines. ? 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 ? Change your dressing as told by [...] with pain and swelling. ??? Do not (more content not included)... [facility] 04-12-2025 History of Present illness Narrative Associated Problem(s): Acute non-recurrent maxillary sinusitis Add loratadine to nasal steroids Add atb as well If not better RTO Possible allergies- drainage, runny nose Images from the original note were not included. Marti Morgan is a 69 y.o. male presents with chief complaint of Diabetes HPI: Yellow nasal drainage, few weeks, worsening, also more sneezing as well, noting a lot of drainage in throat area Diabetes He presents for his follow-up diabetic visit. He has type 2 diabetes mellitus. His disease course has been stable. There are no hypoglycemic associated symptoms. Pertinent negatives for diabetes include no polydipsia, no polyphagia and no polyuria. There are no hypoglycemic complications. Symptoms are stable. Pertinent negatives for diabetic complications include no heart disease or peripheral neuropathy. Risk factors for coronary artery disease include diabetes mellitus, obesity and male sex. Current diabetic treatment includes oral agent (monotherapy). Sinusitis This is a new problem. The current episode started 1 to 4 weeks ago. The problem has been gradually worsening since onset. There has been no fever. Associated symptoms include congestion, coughing, sinus pressure and sneezing. Pertinent negatives include no ear pain, hoarse voice, neck pain, shortness of breath or swollen glands. Treatments tried: nasal steroids. SUBJECTIVE: MEDICATIONS: Current Outpatient Medications Medication Instructions aspirin 81 mg, Oral, Daily atorvastatin (LIPITOR) 20 mg, Oral, Daily dutasteride (AVODART) 0.5 mg, Oral, Daily ferrous sulfate (FEROSUL) 325 mg, Oral, Daily with breakfast fluticasone (Flonase) 50 MCG/ACT nasal spray 1-2 sprays, Each Nostril, Daily, Shake gently. Before first use, prime pump. After use, clean tip and replace cap. meloxicam (MOBIC) 15 mg, Oral, Daily metFORMIN (GLUCOPHAGE) 500 mg, Oral, 2 times daily with meals metoprolol succinate XL (TOPROL-XL) 50 mg, Oral, Daily tadalafil (CIALIS) 20 mg tamsulosin (FLOMAX) 0.4 mg, Oral, 2 times daily ALLERGIES: No Known Allergies REVIEW OF SYMPTOMS: Review of Systems HENT: Positive for congestion, sinus pressure and sneezing. Negative for ear pain and hoarse voice. Respiratory: Positive for cough. Negative for shortness of breath. Musculoskeletal: Negative for neck pain. Endocrine: Negative for polydipsia, polyphagia and polyuria. PAST MEDICAL HISTORY Past Medical History: Diagnosis Date Arthritis BPH with urinary obstruction Diabetes ([facility]) DM II (diabetes mellitus, type II), controlled ([facility]) Erectile dysfunction History of TIA (transient ischemic attack) HLD (hyperlipidemia) Hypertension Right knee pain Past Surgical History: Procedure Laterality Date CT ANGIOGRAM HEART CORONARY 02/02/2022 CT ANGIOGRAM HEART CORONARY 02/02/2022 family history includes Diabetes in his father and mother; Heart disease in his father and maternal grandfather; Hypertension in his father and mother. OBJECTIVE: Visit Vitals BP 138/76 (BP Location: Left arm, Patient Position: Sitting, BP Cuff Size: Adult long) Pulse 86 Temp 98.5 F (Temporal) Resp 22 Wt 255 lb 12.8 oz SpO2 96% BMI 31.14 kg/m Smoking Status Never BSA 2.49 m Physical Exam Vitals and nursing note reviewed. Constitutional: Appearance: Normal appearance. He is obese. HENT: Head: Normocephalic. Right Ear: Tympanic membrane, ear canal and external ear normal. Left Ear: Ear canal and external ear normal. Nose: Congestion and rhinorrhea present. Mouth/Throat: Mouth: Mucous membranes are moist. Pharynx: Oropharynx is clear. No oropharyngeal exudate or posterior oropharyngeal erythema. Eyes: Extraocular Movements: Extraocular movements intact. Conjunctiva/sclera: Conjunctivae normal. Neck: Vascular: No carotid bruit. Cardiovascular: Rate and Rhythm: Normal rate and regular rhythm. Pulses: Normal pulses. Heart sounds: Normal heart sounds. No murmur heard. Pulmonary: Effort: Pulmonary effort is normal. Breath sounds: Normal breath sounds. No wheezing or rhonchi. Abdominal: General: Bowel sounds are normal. Palpations: Abdomen is soft. Musculoskeletal: Cervical back: Neck supple. Right lower leg: No edema. Left lower leg: No edema. Lymphadenopathy: Cervical: No cervical adenopathy. Skin: General: Skin is warm and dry. Capillary Refill: Capillary refill takes 2 to 3 seconds. Neurological: General: No focal deficit present. Mental Status: He is alert. Psychiatric: Mood and Affect: Mood normal. Behavior: Behavior normal. Thought Content: Thought content normal. Judgment: Judgment normal. ASSESSMENT AND PLAN: No follow-ups on file. Problem List Items Addressed This Visit Hypertension - Primary Please check blood pressure daily and record DASH diet Limit caffeine Take medication as directed Contact office if chest pain, pressure, dizziness, shortness of breath, swelling legs Recommend slow position changes Current meds: metoprolol Prediabetes Metformin therapy A1c 6.3% 04/12/25, 5.8% on 12/18/24 Relevant Orders POCT glycosylated hemoglobin (Hb A1C) docked device (Completed) Hydrocele in adult Has seen urology, is to have surgery this week Acute non-recurrent maxillary sinusitis Add loratadine to nasal steroids Add atb as well If not better RTO Relevant Medications amoxicillin-clavulanate (Augmentin) 875-125 MG tablet Associated Problem(s): Prediabetes Metformin therapy A1c 6.3% 04/12/25, 5.8% on 12/18/24 Associated Problem(s): Hydrocele in adult Has seen urology, is to have surgery this week Associated Problem(s): Hypertension Please check blood pressure daily and record DASH diet Limit caffeine Take medication as directed Contact office if chest pain, pressure, dizziness, shortness of breath, swelling legs Recommend slow position changes Current meds: metoprolol documented in this encounter [facility] 04-12-2025 Instructions Sophie Delarosa NP - 04/12/2025 2:20 PM EDT Check blood work again in 4 weeks documented in this encounter [facility] 04-05-2025 Note Patient Education Urology Hydrocelectomy, Adult, Care After [...] these instructions at home: Medicines ??? Take hyzh-lch-hvnmtzb and prescription medicines only as told by your health care provider. ??? Ask your health care provider if the medicine prescribed to you: ? Requires you to avoid driving or using machinery. ? Can cause constipation. You may need to take these actions to prevent or treat constipation: ? Drink enough fluid to keep your urine pale yellow. ? Take yobf-gcj-wpkitwr or prescription medicines. ? 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 ? Change your dressing as told by [...] with pain and swelling. ??? Do not (more content not included)... [facility] 03-29-2025 Note I reviewed the patie nt's echo and it appears to be normal. Therefore the patient can proceed with surgery from the cardiac point of view with necessary anesthesia. He is considered to be at low risk for perioperative cardiac events [facility] 03-18-2025 Note [place] [facility] Note Reason for cardiology consult: Preop clearance due to abnormal EKG Chief Complaint: No cardiac complaint HPI: Marti Morgan is a 69 y.o. male without prior [...] involves a lot of physical activities. He denies any chest pain or shortness of breath at [...] medical history of Abnormal ECG, Diabetes mellitus ([facility]), Hyperlipidemia, Hypertension, and Stroke ([facility]). Surgical History He has no past surgical [...] kg (257 lb) SpO2 96% BMI 31.28 kg/m??? Smoking Status Never BSA 2.5 m??? Physical Examination: GENERAL: alert and oriented x3, [...] occasional PACs, possible old inferior infarct, T wave abnormalities in lateral leads EKG 09/14/2021 showed sinus rhythm with PACs and PVCs, probable left atrial enlargement, otherwise normal EKG EKG 09/14/2021 showed normal sinus rhythm with PVCs, possible left atrial enlargement, otherwise normal EKG Echo 11/01/2021 at [facility] Left Ventricle: Systolic function is normal with [...] to mild regurgitation. There is no evidence of tricuspid valve stenosis. Insufficient regurgitant jet to assess right ventricular systolic pressure. How (more content not included)... [facility] 03-16-2025 Telephone encounter Note Please contact pt, his EKG was abnormal that he had the other day, however I am wondering if the tracing is not entirely accurate. I would like to repeat an EKG to see if it was a fluke or not. When is his surgery scheduled for? NICKOLAS [facility] 03-16-2025 Miscellaneous Notes Please contact pt, his EKG was abnormal that he had the other day, however I am wondering if the tracing is not entirely accurate. I would like to repeat an EKG to see if it was a fluke or not. When is his surgery scheduled for? NIKCOLAS documented in this encounter [facility] 03-07-2025 Hospital Discharge instructions Patient Education 03/07/2025 15:19:46 Hydrocelectomy, Adult, Care After Hydrocelectomy, Adult, Care After The following information offers guidance on how to care for yourself after your procedure. Your health care provider may also give you more specific instructions. If you have problems or questions, contact your health care provider. What can I expect after the procedure? After your procedure, it is common to have: Mild discomfort and swelling in the pouch that holds your testicles (scrotum). Bruising of the scrotum. Follow these instructions at home: Medicines Take dcao-wid-eouhnji and prescription medicines only as told by your health care provider. Ask your health care provider if the medicine prescribed to you: ?Requires you to avoid driving or using machinery. ?Can cause constipation. You may need to take these actions to prevent or treat constipation: ?Drink enough fluid to keep your urine pale yellow. ?Take epzx-qrh-zrslmul or prescription medicines. ?Eat foods that are high in fiber, such as beans, whole grains, and fresh fruits and vegetables. ?Limit foods that are high in fat and processed sugars, such as fried or sweet foods. Bathing Do not take baths, swim, or use a hot tub until your health care provider approves. Ask your health care provider if you may take showers. You may only be allowed to take sponge baths. If you were told to wear an athletic support strap (scrotal support), keep it dry. Take it off when you shower or bathe. Incision care Follow instructions from your health care provider about how to take care of your incision. Make sure you: ?Wash your hands with soap and water for at least 20 seconds before and after you change your bandage (dressing). If soap and water are not available, use hand paper tube machine operator. ?Change your dressing as told by your health care provider. ?Leave stitches (sutures), skin glue, or adhesive strips in place. These skin closures may need to stay in place for 2 weeks or longer. If adhesive strip edges start to loosen and curl up, you may trim the loose edges. Do not remove adhesive strips completely unless your health care provider tells you to do that. Check your incision and scrotum every day for signs of infection. Check for: ?More redness, swelling, or pain. ?Fluid or blood. ?Warmth. ?Pus or a bad smell. Managing pain and swelling If directed, put ice on the affected area. To do this: Put ice in a plastic bag. Place a towel between your skin and the bag. Leave the ice on for 20 minutes, 2 3 times per day. Remove the ice if your skin turns bright red. This is very important. If you cannot feel pain, heat, or cold, you have a greater risk of damage to the area. Activity Do not lift anything that is heavier than 10 lb (4.5 kg) until your health care provider says that it is safe. If you were given a sedative during the procedure, it can affect you for several hours. Do not drive or operate machinery until your health care provider says that it is safe. Ask your health care provider when it is safe to drive. Return to your normal activities as told by your health care provider. Ask your health care provider what activities are safe for you. General instructions Do not use any products that contain nicotine or tobacco. These products include cigarettes, chewing tobacco, and vaping devices, such as e-cigarettes. These can delay healing after surgery. If you need help quitting, ask your health care provider. If you were given a scrotal support, wear it as told by your health care provider. Keep all follow-up visits. This is important. If you had a drain put in during the procedure, you will need to have it removed at a follow-up visit. Contact a health care provider if: Your pain is not controlled with medicine. You have more redness, swelling, or pain around your scrotum. You have fluid or blood coming from your incision. Your incision feels warm to the touch. You have pus or a bad smell coming from your incision. You have a fever. Get help right away if: You develop shaking, chills, and a fever that is higher than 101.8 F (38.8 C). You have redness or swelling that starts at your scrotum and spreads outward to your whole groin. You develop swelling in your legs. You have difficulty breathing. These symptoms may be an emergency. Get help right away. Call 911. Do not wait to see if the symptoms will go away. Do not drive yourself to the hospital. Summary After a hydrocelectomy, it is common to have mild discomfort, swelling, and bruising. Do not take baths, swim, or use a hot tub until your health care provider approves. Ask your health care provider if you may take showers. If directed, put ice on the affected area to help with pain and swelling. Do not lift anything that is heavier than 10 lb (4.5 kg) until your health care provider says that it is safe. Return to your normal activities as told by your health care provider. If you were given a scrotal support, keep it dry. Wear the scrotal support as told by your health care provider. This information is not intended to replace advice given to you by your health care provider. Make sure you discuss any questions you have with your health care provider. Document Revised: 04/11/2022 Document Reviewed: 04/11/2022 [employer] Patient Education 2023 [employer] 03/07/2025 15:19:45 Hydrocelectomy, Adult Hydrocelectomy, Adult A hydrocelectomy is a surgical procedure to remove a collection of fluid (hydrocele) from the scrotum. The scrotum is the pouch that holds the testicles. You may need to have this procedure if a hydrocele is causing painful swelling in your scrotum. Tell a health care provider about: Any allergies you have. All medicines you are taking, including vitamins, herbs, eye drops, creams, and wyao-gio-ifnpsbp medicines. Any problems you or family members have had with anesthetic medicines. Any bleeding problems you have. Any surgeries you have had. Any medical conditions you have. What are the risks? Generally, this is a safe procedure. However, problems may occur, including: Bleeding into the scrotum (scrotal hematoma). Damage to nearby structures or organs, including to the testicle or the tube that carries sperm out of the testicle (vas deferens). Infection. Allergic reactions to medicines. What happens before the procedure? When to stop eating and drinking Follow instructions from your health care provider about what you may eat and drink before your procedure. These may include: 8 hours before your procedure ?Stop eating most foods. Do not eat meat, fried foods, or fatty foods. ?Eat only light foods, such as toast or crackers. ?All liquids are okay except energy drinks and alcohol. 6 hours before your procedure ?Stop eating. ?Drink only clear liquids, such as water, clear fruit juice, black coffee, plain tea, and sports drinks. ?Do not drink energy drinks or alcohol. 2 hours before your procedure ?Stop drinking all liquids. ?You may be allowed to take medicines with small sips of water. If you do not follow your health care provider's instructions, your procedure may be delayed or canceled. Medicines Ask your health care provider about: Changing or stopping your regular medicines. This is especially important if you are taking diabetes medicines or blood thinners. Taking medicines such as aspirin and ibuprofen. These medicines can thin your blood. Do not take these medicines unless your health care provider tells you to take them. Taking sbem-bbe-qkquizm medicines, vitamins, herbs, and supplements. Surgery safety Ask your health care provider: How your surgery site will be marked. What steps will be taken to help prevent infection. These steps may include: ?Removing hair at the surgery site. ?Washing skin with a germ-killing soap. ?Taking antibiotic medicine. General instructions Do not use any products that contain nicotine or tobacco for at least 4 weeks before the procedure. These products include cigarettes, chewing tobacco, and vaping devices, such as e-cigarettes. If you need help quitting, ask your health care provider. If you will be going home right after the procedure, plan to have a responsible adult: ?Take you home from the hospital or clinic. You will not be allowed to drive. ? Care for you for the time you are told. What happens during the procedure? An IV will be inserted into one of your veins. You will be given one or both of the following: ?A medicine to make you relax (sedative). ?A medicine to make you fall asleep (general anesthetic). A small incision will be made through the skin of your scrotum. Your testicle and the hydrocele will be located, and the hydrocele sac will be opened with an incision. The fluid will be drained from the hydrocele. Part of the hydrocele sac may be removed. The hydrocele will be closed with stitches that dissolve (absorbable sutures). This prevents fluid from building up again. If your hydrocele is large, you may have a thin, rubber drain placed to allow fluid to drain after the procedure. The incision in your scrotum will be closed with absorbable sutures, skin glue, or adhesive strips. A bandage (dressing) will be placed over the incision. The dressing may be held in place with an athletic support strap (scrotal support). The procedure may vary among health care providers and hospitals. What happens after the procedure? Your blood pressure, heart rate, breathing rate, and blood oxygen level will be monitored until you leave the hospital or clinic. You will be given pain medicine as needed. Your IV will be removed, and your insertion site will be checked for bleeding. You may need to wear a scrotal support. This holds the dressing in place and supports your scrotum. If you were given a sedative during the procedure, it can affect you for several hours. Do not drive or operate machinery until your health care provider says that it is safe. Summary A hydrocelectomy is a surgical procedure to remove a collection of fluid from the scrotum. You may need to have this procedure if a hydrocele is causing painful swelling in your scrotum. During the procedure, the hydrocele will be drained and then closed with stitches that dissolve (absorbable sutures). This prevents fluid from building up again. If your hydrocele is large, you may have a thin, rubber drain placed to allow fluid to drain after the procedure. You may need to wear a scrotal support after your procedure. This holds the dressing in place and supports your scrotum. This information is not intended to replace advice given to you by your health care provider. Make sure you discuss any questions you have with your health care provider. Document Revised: 04/11/2022 Document Reviewed: 04/11/2022 [employer] Patient Education 2023 [employer]. Follow Up Care 02/17/2025 12:41:43 With:BETO WEAVER, [employer], URL Address: [facility] [address], [place] [address] [phone] When: Unknown Comments:westley Hays hydrocelectomy [facility] 03-07-2025 Note Patient Education Urology Hydrocelectomy, Adult, Care After [...] these instructions at home: Medicines ??? Take sjhs-wyp-ggkktbt and prescription medicines only as told by your health care provider. ??? Ask your health care provider if the medicine prescribed to you: ? Requires you to avoid driving or using machinery. ? Can cause constipation. You may need to take these actions to prevent or treat constipation: ? Drink enough fluid to keep your urine pale yellow. ? Take hwqr-xfv-rzvqwbf or prescription medicines. ? 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 ? Change your dressing as told by [...] with pain and swelling. ??? Do not (more content not included)... [facility] 01-25-2025 Hospital Discharge instructions Patient Education 01/25/2025 15:21:18 Benign Prostatic Hyperplasia Benign Prostatic Hyperplasia Benign [...] urethra. Follow these instructions at home: Take xnbn-yqk-fmemmap and prescription medicines only as told by [...] provider. Document Revised: 03/13/2022 Document Reviewed: 03/13/2022 [employer] Patient Education 2023 [employer]. Follow Up Care 01/04/2025 15:06:55 With:BETO WEAVER, [employer], URL Address: [facility] [address] , [place] [address]- When: Unknown [facility] 01-25-2025 Note Patient Education Urology Benign Prostatic Hyperplasia Benign [...] Follow these instructions at home: ??? Take gpxs-mae-fipfane and prescription medicines only as told by [...] pain. ??? Your symptoms do not get (more content not included)... [facility] 01-03-2025 Note Urology Office/Clini c Note Chief Complaint Re-referral for hydrocele HPI Staff re-referral for BPH by Sophie Delarosa [...] this time. -Cont monitoring 4. Anticoagulated (Z79.01: assisted (current) use of anticoagulants) Plavix. [1] Follow-up With When Contact Information Drew HIRSCH MD, URL [facility] [address], [place] [address]- [phone] Additional Instructions: sched cysto Patient Education Cystoscopy Benign Prostatic Hyperplasia I, Sherry Fitzpatrick, personally scribed for Dr. Hirsch on 01/03/2025 13:52:57. . Documentation recorded by the Sherry rucker, accurately reflects the services(s) I performed and decisions made by me. Authenticated by Dr. Hirsch on 01/03/2025 13:56:13. Problem List/Past Medical History Ongoing Anticoagulated Arthritis BPH with urinary obstruction Diabetes ED (erectile dysfunction) Feeling of incomplete bladder emptying History of kidney stones Hydrocele Hyperlipidemia Hypertension Prostate cancer screening TIA (transient ischemic attack) Historical No qualifying data Procedure/Surgical Hist (more content not included)... [facility] Comment on above: Result Comment: Elec tronically Signed By: Drew HIRSCH MD\.br\Date and Time Signed: 01/03/25 13:56 EDT\.br\Electronically Co-Signed By: Sherry Fitzpatrick\.br\Date and Time Co-Signed: 01/03/25 13:53 EDT 01-03-2025 Note Patient Education Urology Cystoscopy Cystoscopy is a [...] including vitamins, herbs, eye drops, creams, and brwn-yci-cryiomf medicines. ??? Any problems you or family [...] tells you to take them. ??? Taking cjzo-rxa-tvdvdop medicines, vitamins, herbs, and supplements. Tests You [...] these instructions at home: Medicines ??? Take ucer-nsl-axudbkt and prescription medicines only as told by [...] was removed for testing (biopsy) during your (more content not included)... [facility] 12-13-2024 History of Present illness Narrative Associated [...] inguinal hernia with hydrocele Check US TB Pt states that it started swelling a [...] There is no history of kidney disease, CAD/NH or heart failure. Diabetes He presents for [...] agent (monotherapy). An JOE inhibitor/angiotensin II receptor karolyn is not being taken. He does not see a delimer.Eye exam is current. SUBJECTIVE: MEDICATIONS: Current Outpatient [...] Date Arthritis BPH with urinary obstruction Diabetes ([facility]) DM II (diabetes mellitus, type II), controlled ([facility]) Erectile dysfunction History of TIA (transient ischemic attack) HLD (hyperlipidemia) ([facility]) Hypertension ([facility]) Right knee pain Past Surgical History: Procedure [...] Orders Comprehensive metabolic panel Lipid panel Hypertension ([facility]) Please check blood pressure daily and [...] Current meds: metoprolol documented in this encounter [facility] 12-13-2024 Instructions Sophie Delarosa NP - 12/13/2024 10:00 AM EDT Labs are due: fasting 8 hours US scrotum: I will order US at [facility], ,ext [id number] documented in this encounter [facility] 08-24-2024 History of Present illness Narrative Associated [...] MODERATE RISK >11.0 HIGH RISK Resulting Agency TB TB Prediabetes: Currently taking Metformin 500mg Denies any [...] 15 MG tablet documented in this encounter [facility] 08-12-2024 Telephone encounter Note Patient is asking if his meloxicam can be a 90 day supply like all his other medications. I did put in for a refill of the low dose aspirin. SON [facility] 08-12-2024 Miscellaneous Notes Patient is asking if his meloxicam can be a 90 day supply like all his other medications. I did put in for a refill of the low dose aspirin. SON documented in this encounter [facility] 08-10-2024 Telephone encounter Note MANDO: NOV:09/03/2024 [facility] 08-10-2024 Miscellaneous Notes MANDO: NOV:09/03/2024 documented in this encounter [facility] 07-14-2024 Telephone encounter Note Mando:02/25/2024 NOV:08/23/2024 [facility] 07-14-2024 Miscellaneous Notes Mando:02/25/2024 NOV:08/23/2024 documented in this encounter [facility] 06-23-2024 History of Present illness Narrative Associated [...] 1/10 pain at rest. Pain with activities -05/18, laying down 1010. Admits waking at night. Denies N/T. Notes [...] in 2 months documented in this encounter [facility] 2023 Hospital Discharge instructions Patient Education 2023 [...] urethra. Follow these instructions at home: Take kvnc-qup-nuyxfby and prescription medicines only as told by [...] provider. Document Revised: 03/13/2022 Document Reviewed: 03/13/2022 [employer] Patient Education 2022 [employer]. Follow Up Care 03/05/2023 09:34:37 With:MARIELA LANIER, CLARISSA Cowan, URL Address: [address] [address] When: Unknown Comments:Sched Cysto/TRUS w/KML [facility] Evaluation + Plan note No data available for this section [facility] Evaluation + Plan note Future Appointments Appointment Date:08/08/2025 10:30:00 AM Scheduled Provider:Drew HIRSCH MD Location:[facility] Appointment Type:URO Office Visit [facility] Evaluation + Plan note Future Appointments Appointment Date:04/11/2025 02:30:00 PM Scheduled Provider:Drew HIRSCH MD Location:[facility] Appointment Type:URO Office Visit Appointment Date:08/08/2025 10:30:00 AM Scheduled Provider:Drew HIRSCH MD Location:[facility] Appointment Type:URO Office Visit [facility] Evaluation + Plan note Future Appointments Appointment Date:08/08/2025 10:30:00 AM Scheduled Provider:Drew HIRSCH MD Location:[facility] Appointment Type:URO Office Visit Appointment Date:11/11/2025 08:30:00 AM Scheduled Provider:Drew HIRSCH MD Location:[facility] Appointment Type:URO Office Visit [facility] Evaluation note No assessment inform ation [...] of iron metabolism documented in this encounter [facility]Evaluation [facility]* Diagnosis Primary hypertension (CMS/HCC)- Primary [...] of left knee documented in this encounter [facility]Evaluation note* Diagnosis Primary hypertension (CMS/HCC)- Primary [...] of left knee documented in this encounter [facility] HealthcareEvaluation note* Diagnosis Primary hypertension (CMS/HCC)- Primary Unspecified essential hypertension TIA (transient ischemic attack) Unspecified transient cerebral ischemia BPH with urinary obstruction Hypertrophy of prostate with urinary obstruction and other lower urinary tract symptoms (LUTS) Erectile dysfunction, unspecified erectile dysfunction type Prediabetes Other abnormal glucose Hyperlipidemia, unspecified hyperlipidemia type ([facility]/HCC) Encounter for screening for malignant neoplasm of [...] Unspecified essential hypertension documented in this encounter [facility] HealthcareEvaluation note* Diagnosis Primary hypertension (CMS/HCC)- Primary [...] Other chronic pain documented in this encounter [facility] HealthcareEvaluation note* Diagnosis Primary hypertension (CMS/HCC)- [...] hyperlipidemia type (CMS/HCC) documented in this encounter [facility]Evaluation note* Diagnosis Primary hypertension (CMS/HCC)- Primary [...] Other chronic pain documented in this encounter [facility] HealthcareEvaluation note* Diagnosis Primary hypertension (CMS/HCC)- [...] transient cerebral ischemia documented in this encounter [facility]Evaluation note* Diagnosis Primary hypertension (CMS/HCC)- Primary [...] nasopharyngitis (common cold) documented in this encounter [facility]Evaluation note* Diagnosis Primary hypertension (CMS/HCC)- Primary [...] Unspecified essential hypertension documented in this encounter [facility]Evaluation note* Diagnosis Primary hypertension (CMS/HCC)- Primary [...] Other abnormal glucose documented in this encounter [facility] HealthcareEvaluation note* Diagnosis Anemia, unspecified [facility] Diagnosis Primary hypertension (CMS/HCC)- Primary [...] apnea (adult) (pediatric) documented in this encounter [facility]Evaluation note* Diagnosis Primary hypertension (CMS/HCC)- Primary [...] half of scrotum documented in this encounter [facility] HealthcareEvaluation note* Diagnosis Primary hypertension (CMS/HCC)- [...] sleep apnea) Obstructive sleep apnea (adult) (pediatric) Acute rhinitis Acute nasopharyngitis (common cold) documented in this encounter [facility] HealthcareEvaluation note* Diagnosis Primary hypertension (CMS/HCC)- Primary [...] sleep apnea) Obstructive sleep apnea (adult) (pediatric) Primary hypertension (CMS/HCC) Unspecified essential hypertension documented in this encounter [facility]Evaluation note* Diagnosis Primary hypertension- Primary Unspecified essential hypertension TIA (transient ischemic attack) Unspecified transient cerebral ischemia BPH with urinary obstruction Hypertrophy of prostate with urinary obstruction and other lower urinary tract symptoms (LUTS) Erectile dysfunction, unspecified erectile dysfunction type Prediabetes Other abnormal glucose Hyperlipidemia, unspecified hyperlipidemia type Encounter for screening for malignant neoplasm of colon Wellness examination URTI (acute upper respiratory infection) Acute upper respiratory infections of unspecified site TIA (transient ischemic attack)- Primary Unspecified transient cerebral ischemia Primary hypertension Unspecified essential hypertension Erectile dysfunction, unspecified erectile dysfunction type Hyperlipidemia, unspecified hyperlipidemia type Iron deficiency anemia, unspecified iron deficiency anemia type BPH with urinary obstruction Hypertrophy of prostate with urinary obstruction and other lower urinary tract symptoms (LUTS) Chronic pain of left knee Chronic left shoulder pain Pain in joint, shoulder region Primary hypertension- Primary Unspecified essential hypertension Iron deficiency Disorders of iron metabolism Other chronic pain BPH with urinary obstruction Hypertrophy of prostate with urinary obstruction and other lower urinary tract symptoms (LUTS) Prediabetes Other abnormal glucose Mixed hyperlipidemia Mixed hyperlipidemia Acute rhinitis Acute nasopharyngitis (common cold) Swelling of left half of scrotum- Primary Primary hypertension Unspecified essential hypertension BPH with urinary obstruction Hypertrophy of prostate with urinary obstruction and other lower urinary tract symptoms (LUTS) Erectile dysfunction, unspecified erectile dysfunction type Prediabetes Other abnormal glucose Iron deficiency anemia, unspecified iron deficiency anemia type Mixed hyperlipidemia Mixed hyperlipidemia Screening for prostate cancer Special screening for malignant neoplasm of prostate MAR (obstructive sleep apnea) Obstructive sleep apnea (adult) (pediatric) Hyperlipidemia, unspecified hyperlipidemia type documented in this encounter [facility]Evaluation note* Diagnosis Primary hypertension- Primary Unspecified essential hypertension TIA (transient ischemic attack) Unspecified transient cerebral ischemia BPH with urinary obstruction Hypertrophy of prostate with urinary obstruction and other lower urinary tract symptoms (LUTS) Erectile dysfunction, unspecified erectile dysfunction type Prediabetes Other abnormal glucose Hyperlipidemia, unspecified hyperlipidemia type Encounter for screening for malignant neoplasm of colon Wellness examination URTI (acute upper respiratory infection) Acute upper respiratory infections of unspecified site TIA (transient ischemic attack)- Primary Unspecified transient cerebral ischemia Primary hypertension Unspecified essential hypertension Erectile dysfunction, unspecified erectile dysfunction type Hyperlipidemia, unspecified hyperlipidemia type Iron deficiency anemia, unspecified iron deficiency anemia type BPH with urinary obstruction Hypertrophy of prostate with urinary obstruction and other lower urinary tract symptoms (LUTS) Chronic pain of left knee Chronic left shoulder pain Pain in joint, shoulder region Primary hypertension- Primary Unspecified essential hypertension Iron deficiency Disorders of iron metabolism Other chronic pain BPH with urinary obstruction Hypertrophy of prostate with urinary obstruction and other lower urinary tract symptoms (LUTS) Prediabetes Other abnormal glucose Mixed hyperlipidemia Mixed hyperlipidemia Acute rhinitis Acute nasopharyngitis (common cold) Swelling of left half of scrotum- Primary Primary hypertension Unspecified essential hypertension BPH with urinary obstruction Hypertrophy of prostate with urinary obstruction and other lower urinary tract symptoms (LUTS) Erectile dysfunction, unspecified erectile dysfunction type Prediabetes Other abnormal glucose Iron deficiency anemia, unspecified iron deficiency anemia type Mixed hyperlipidemia Mixed hyperlipidemia Screening for prostate cancer Special screening for malignant neoplasm of prostate MAR (obstructive sleep apnea) Obstructive sleep apnea (adult) (pediatric) Prediabetes Other abnormal glucose documented in this encounter [facility] HealthcareEvaluation note* Diagnosis Primary hypertension- Primary Unspecified essential hypertension TIA (transient ischemic attack) Unspecified transient cerebral ischemia BPH with urinary obstruction Hypertrophy of prostate with urinary obstruction and other lower urinary tract symptoms (LUTS) Erectile dysfunction, unspecified erectile dysfunction type Prediabetes Other abnormal glucose Hyperlipidemia, unspecified hyperlipidemia type Encounter for screening for malignant neoplasm of colon Wellness examination URTI (acute upper respiratory infection) Acute upper respiratory infections of unspecified site TIA (transient ischemic attack)- Primary Unspecified transient cerebral ischemia Primary hypertension Unspecified essential hypertension Erectile dysfunction, unspecified erectile dysfunction type Hyperlipidemia, unspecified hyperlipidemia type Iron deficiency anemia, unspecified iron deficiency anemia type BPH with urinary obstruction Hypertrophy of prostate with urinary obstruction and other lower urinary tract symptoms (LUTS) Chronic pain of left knee Chronic left shoulder pain Pain in joint, shoulder region Primary hypertension- Primary Unspecified essential hypertension Iron deficiency Disorders of iron metabolism Other chronic pain BPH with urinary obstruction Hypertrophy of prostate with urinary obstruction and other lower urinary tract symptoms (LUTS) Prediabetes Other abnormal glucose Mixed hyperlipidemia Mixed hyperlipidemia Acute rhinitis Acute nasopharyngitis (common cold) Swelling of left half of scrotum- Primary Primary hypertension Unspecified essential hypertension BPH with urinary obstruction Hypertrophy of prostate with urinary obstruction and other lower urinary tract symptoms (LUTS) Erectile dysfunction, unspecified erectile dysfunction type Prediabetes Other abnormal glucose Iron deficiency anemia, unspecified iron deficiency anemia type Mixed hyperlipidemia Mixed hyperlipidemia Screening for prostate cancer Special screening for malignant neoplasm of prostate MAR (obstructive sleep apnea) Obstructive sleep apnea (adult) (pediatric) BPH with urinary obstruction Hypertrophy of prostate with urinary obstruction and other lower urinary tract symptoms (LUTS) documented in this encounter [facility]Evaluation note* Diagnosis Primary hypertension- Primary Unspecified essential hypertension TIA (transient ischemic attack) Unspecified transient cerebral ischemia BPH with urinary obstruction Hypertrophy of prostate with urinary obstruction and other lower urinary tract symptoms (LUTS) Erectile dysfunction, unspecified erectile dysfunction type Prediabetes Other abnormal glucose Hyperlipidemia, unspecified hyperlipidemia type Encounter for screening for malignant neoplasm of colon Wellness examination URTI (acute upper respiratory infection) Acute upper respiratory infections of unspecified site TIA (transient ischemic attack)- Primary Unspecified transient cerebral ischemia Primary hypertension Unspecified essential hypertension Erectile dysfunction, unspecified erectile dysfunction type Hyperlipidemia, unspecified hyperlipidemia type Iron deficiency anemia, unspecified iron deficiency anemia type BPH with urinary obstruction Hypertrophy of prostate with urinary obstruction and other lower urinary tract symptoms (LUTS) Chronic pain of left knee Chronic left shoulder pain Pain in joint, shoulder region Primary hypertension- Primary Unspecified essential hypertension Iron deficiency Disorders of iron metabolism Other chronic pain BPH with urinary obstruction Hypertrophy of prostate with urinary obstruction and other lower urinary tract symptoms (LUTS) Prediabetes Other abnormal glucose Mixed hyperlipidemia Mixed hyperlipidemia Acute rhinitis Acute nasopharyngitis (common cold) Swelling of left half of scrotum- Primary Primary hypertension Unspecified essential hypertension BPH with urinary obstruction Hypertrophy of prostate with urinary obstruction and other lower urinary tract symptoms (LUTS) Erectile dysfunction, unspecified erectile dysfunction type Prediabetes Other abnormal glucose Iron deficiency anemia, unspecified iron deficiency anemia type Mixed hyperlipidemia Mixed hyperlipidemia Screening for prostate cancer Special screening for malignant neoplasm of prostate MAR (obstructive sleep apnea) Obstructive sleep apnea (adult) (pediatric) Other chronic pain documented in this encounter [facility] HealthcareEvaluation note* Diagnosis Primary hypertension- Primary Unspecified essential hypertension TIA (transient ischemic attack) Unspecified transient cerebral ischemia BPH with urinary obstruction Hypertrophy of prostate with urinary obstruction and other lower urinary tract symptoms (LUTS) Erectile dysfunction, unspecified erectile dysfunction type Prediabetes Other abnormal glucose Hyperlipidemia, unspecified hyperlipidemia type Encounter for screening for malignant neoplasm of colon Wellness examination URTI (acute upper respiratory infection) Acute upper respiratory infections of unspecified site TIA (transient ischemic attack)- Primary Unspecified transient cerebral ischemia Primary hypertension Unspecified essential hypertension Erectile dysfunction, unspecified erectile dysfunction type Hyperlipidemia, unspecified hyperlipidemia type Iron deficiency anemia, unspecified iron deficiency anemia type BPH with urinary obstruction Hypertrophy of prostate with urinary obstruction and other lower urinary tract symptoms (LUTS) Chronic pain of left knee Chronic left shoulder pain Pain in joint, shoulder region Primary hypertension- Primary Unspecified essential hypertension Iron deficiency Disorders of iron metabolism Other chronic pain BPH with urinary obstruction Hypertrophy of prostate with urinary obstruction and other lower urinary tract symptoms (LUTS) Prediabetes Other abnormal glucose Mixed hyperlipidemia Mixed hyperlipidemia Acute rhinitis Acute nasopharyngitis (common cold) Swelling of left half of scrotum- Primary Primary hypertension Unspecified essential hypertension BPH with urinary obstruction Hypertrophy of prostate with urinary obstruction and other lower urinary tract symptoms (LUTS) Erectile dysfunction, unspecified erectile dysfunction type Prediabetes Other abnormal glucose Iron deficiency anemia, unspecified iron deficiency anemia type Mixed hyperlipidemia Mixed hyperlipidemia Screening for prostate cancer Special screening for malignant neoplasm of prostate MAR (obstructive sleep apnea) Obstructive sleep apnea (adult) (pediatric) Abnormal EKG- Primary Nonspecific abnormal electrocardiogram (ECG) (EKG) documented in this encounter [facility] HealthcareEvaluation note* Diagnosis Primary hypertension- Primary Unspecified essential hypertension TIA (transient ischemic attack) Unspecified transient cerebral ischemia BPH with urinary obstruction Hypertrophy of prostate with urinary obstruction and other lower urinary tract symptoms (LUTS) Erectile dysfunction, unspecified erectile dysfunction type Prediabetes Other abnormal glucose Hyperlipidemia, unspecified hyperlipidemia type Encounter for screening for malignant neoplasm of colon Wellness examination URTI (acute upper respiratory infection) Acute upper respiratory infections of unspecified site TIA (transient ischemic attack)- Primary Unspecified transient cerebral ischemia Primary hypertension Unspecified essential hypertension Erectile dysfunction, unspecified erectile dysfunction type Hyperlipidemia, unspecified hyperlipidemia type Iron deficiency anemia, unspecified iron deficiency anemia type BPH with urinary obstruction Hypertrophy of prostate with urinary obstruction and other lower urinary tract symptoms (LUTS) Chronic pain of left knee Chronic left shoulder pain Pain in joint, shoulder region Primary hypertension- Primary Unspecified essential hypertension Iron deficiency Disorders of iron metabolism Other chronic pain BPH with urinary obstruction Hypertrophy of prostate with urinary obstruction and other lower urinary tract symptoms (LUTS) Prediabetes Other abnormal glucose Mixed hyperlipidemia Mixed hyperlipidemia Acute rhinitis Acute nasopharyngitis (common cold) Swelling of left half of scrotum- Primary Primary hypertension Unspecified essential hypertension BPH with urinary obstruction Hypertrophy of prostate with urinary obstruction and other lower urinary tract symptoms (LUTS) Erectile dysfunction, unspecified erectile dysfunction type Prediabetes Other abnormal glucose Iron deficiency anemia, unspecified iron deficiency anemia type Mixed hyperlipidemia Mixed hyperlipidemia Screening for prostate cancer Special screening for malignant neoplasm of prostate MAR (obstructive sleep apnea) Obstructive sleep apnea (adult) (pediatric) Iron deficiency Disorders of iron metabolism documented in this encounter [facility] HealthcareEvaluation note* Diagnosis Primary hypertension- Primary Unspecified essential hypertension TIA (transient ischemic attack) Unspecified transient cerebral ischemia BPH with urinary obstruction Hypertrophy of prostate with urinary obstruction and other lower urinary tract symptoms (LUTS) Erectile dysfunction, unspecified erectile dysfunction type Prediabetes Other abnormal glucose Hyperlipidemia, unspecified hyperlipidemia type Encounter for screening for malignant neoplasm of colon Wellness examination URTI (acute upper respiratory infection) Acute upper respiratory infections of unspecified site TIA (transient ischemic attack)- Primary Unspecified transient cerebral ischemia Primary hypertension Unspecified essential hypertension Erectile dysfunction, unspecified erectile dysfunction type Hyperlipidemia, unspecified hyperlipidemia type Iron deficiency anemia, unspecified iron deficiency anemia type BPH with urinary obstruction Hypertrophy of prostate with urinary obstruction and other lower urinary tract symptoms (LUTS) Chronic pain of left knee Chronic left shoulder pain Pain in joint, shoulder region Primary hypertension- Primary Unspecified essential hypertension Iron deficiency Disorders of iron metabolism Other chronic pain BPH with urinary obstruction Hypertrophy of prostate with urinary obstruction and other lower urinary tract symptoms (LUTS) Prediabetes Other abnormal glucose Mixed hyperlipidemia Mixed hyperlipidemia Acute rhinitis Acute nasopharyngitis (common cold) Swelling of left half of scrotum- Primary Primary hypertension Unspecified essential hypertension BPH with urinary obstruction Hypertrophy of prostate with urinary obstruction and other lower urinary tract symptoms (LUTS) Erectile dysfunction, unspecified erectile dysfunction type Prediabetes Other abnormal glucose Iron deficiency anemia, unspecified iron deficiency anemia type Mixed hyperlipidemia Mixed hyperlipidemia Screening for prostate cancer Special screening for malignant neoplasm of prostate MAR (obstructive sleep apnea) Obstructive sleep apnea (adult) (pediatric) Prediabetes- Primary Other abnormal glucose Primary hypertension Unspecified essential hypertension Hydrocele in adult Acute non-recurrent maxillary sinusitis Lymphocytopenia documented in this encounter [facility] HealthcareEvaluation note* Diagnosis Primary hypertension- Primary Unspecified essential hypertension TIA (transient ischemic attack) Unspecified transient cerebral ischemia BPH with urinary obstruction Hypertrophy of prostate with urinary obstruction and other lower urinary tract symptoms (LUTS) Erectile dysfunction, unspecified erectile dysfunction type Prediabetes Other abnormal glucose Hyperlipidemia, unspecified hyperlipidemia type Encounter for screening for malignant neoplasm of colon Wellness examination URTI (acute upper respiratory infection) Acute upper respiratory infections of unspecified site TIA (transient ischemic attack)- Primary Unspecified transient cerebral ischemia Primary hypertension Unspecified essential hypertension Erectile dysfunction, unspecified erectile dysfunction type Hyperlipidemia, unspecified hyperlipidemia type Iron deficiency anemia, unspecified iron deficiency anemia type BPH with urinary obstruction Hypertrophy of prostate with urinary obstruction and other lower urinary tract symptoms (LUTS) Chronic pain of left knee Chronic left shoulder pain Pain in joint, shoulder region Primary hypertension- Primary Unspecified essential hypertension Iron deficiency Disorders of iron metabolism Other chronic pain BPH with urinary obstruction Hypertrophy of prostate with urinary obstruction and other lower urinary tract symptoms (LUTS) Prediabetes Other abnormal glucose Mixed hyperlipidemia Mixed hyperlipidemia Acute rhinitis Acute nasopharyngitis (common cold) Swelling of left half of scrotum- Primary Primary hypertension Unspecified essential hypertension BPH with urinary obstruction Hypertrophy of prostate with urinary obstruction and other lower urinary tract symptoms (LUTS) Erectile dysfunction, unspecified erectile dysfunction type Prediabetes Other abnormal glucose Iron deficiency anemia, unspecified iron deficiency anemia type Mixed hyperlipidemia Mixed hyperlipidemia Screening for prostate cancer Special screening for malignant neoplasm of prostate MAR (obstructive sleep apnea) Obstructive sleep apnea (adult) (pediatric) Prediabetes- Primary Other abnormal glucose Primary hypertension Unspecified essential hypertension Hydrocele in adult Acute non-recurrent maxillary sinusitis Lymphocytopenia Acute rhinitis Acute nasopharyngitis (common cold) documented in this encounter [facility] HealthcareEvaluation note* Diagnosis Primary hypertension- Primary Unspecified essential hypertension TIA (transient ischemic attack) Unspecified transient cerebral ischemia BPH with urinary obstruction Hypertrophy of prostate with urinary obstruction and other lower urinary tract symptoms (LUTS) Erectile dysfunction, unspecified erectile dysfunction type Prediabetes Other abnormal glucose Hyperlipidemia, unspecified hyperlipidemia type Encounter for screening for malignant neoplasm of colon Wellness examination URTI (acute upper respiratory infection) Acute upper respiratory infections of unspecified site TIA (transient ischemic attack)- Primary Unspecified transient cerebral ischemia Primary hypertension Unspecified essential hypertension Erectile dysfunction, unspecified erectile dysfunction type Hyperlipidemia, unspecified hyperlipidemia type Iron deficiency anemia, unspecified iron deficiency anemia type BPH with urinary obstruction Hypertrophy of prostate with urinary obstruction and other lower urinary tract symptoms (LUTS) Chronic pain of left knee Chronic left shoulder pain Pain in joint, shoulder region Primary hypertension- Primary Unspecified essential hypertension Iron deficiency Disorders of iron metabolism Other chronic pain BPH with urinary obstruction Hypertrophy of prostate with urinary obstruction and other lower urinary tract symptoms (LUTS) Prediabetes Other abnormal glucose Mixed hyperlipidemia Mixed hyperlipidemia Acute rhinitis Acute nasopharyngitis (common cold) Swelling of left half of scrotum- Primary Primary hypertension Unspecified essential hypertension BPH with urinary obstruction Hypertrophy of prostate with urinary obstruction and other lower urinary tract symptoms (LUTS) Erectile dysfunction, unspecified erectile dysfunction type Prediabetes Other abnormal glucose Iron deficiency anemia, unspecified iron deficiency anemia type Mixed hyperlipidemia Mixed hyperlipidemia Screening for prostate cancer Special screening for malignant neoplasm of prostate MAR (obstructive sleep apnea) Obstructive sleep apnea (adult) (pediatric) Prediabetes- Primary Other abnormal glucose Primary hypertension Unspecified essential hypertension Hydrocele in adult Acute non-recurrent maxillary sinusitis Lymphocytopenia Iron deficiency Disorders of iron metabolism documented in this encounter [facility] Discharge instructions Additional Instructions DISCHARGE INSTRUCTIONS FOR [...] NOT operate machinery such as power tools, Ad[employer]n mowers, snow blowers, sewing machines, etc. for [...] years. -Follow up with PCP. -Office number [phone]. [facility] Work Phone: InstructionsNot on filedocumented in this encounter [facility] System[facility] note No data available for this section [facility] reason for referral (narrative)No reason for referral information availableMount Carmel Health System Work Phone: Summary Purpose Family History No Family History Records Found Relationship Condition Age at Onset Recorded Date/T xenia Not Specified Diabetes mellitus Unknown Hypertension Unknown father Diabetes mellitus Unknown Heart disease Unknown Not Specified Heart disease Unknown Myocardial infarction Unknown Relationship Condition Age at Onset Recorded Date/T xenia mother Diabetes mellitus Unknown Hypertension Unknown father Diabetes mellitus Unknown Heart disease Unknown maternal grandfather Heart disease Unknown Myocardial infarction Unknown paternal grandfather Heart disease Unknown Unknown mother Asthma Unknown Diabetes mellitus Unknown Advance Directives No Advanced Directives Records Found Advance Directive Response Recorded Date/ Time Advance Directives No October 07, 2023 4:56pm Advance Directive Response Recorded Date/ Time Advance Directives No October 07, 2023 5:56pm Chief Complaint and Reason for Visit Chief Complaint Screening Chief Complaint Admit Date Unknown April 14, 2025 10: 03am Additional Source Comments (unrecognized sect ion and content) No Status Records FoundNo Status Records FoundNo Status Records FoundNo Status Records FoundNo Status Records Found INFORMATION SOURCE (unrecogn ized section and content) DATE CREATED AUTHOR 06/30/2022 [facility] DATE CREATED AUTHOR AUTHOR'S ORGANIZ ATION 12/14/2024 [facility] EPIC DATE CREATED AUTHOR AUTHOR'S ORGANIZ ATION 04/02/2025 [facility] DATE CREATED AUTHOR AUTHOR'S ORGANIZ ATION 04/19/2025 [facility] DATE CREATED AUTHOR AUTHOR'S ORGANIZ ATION 05/15/2025 [facility] Patient Care team informatio n (unrecognized section and content) Team Status: Active Member Role Status Dates Shaikh Breanna MD Primary Care Provider Active Team Status: Active Member Role Status Dates Mora Godoy MD Attending Provider, Other Provider Active Start: October 09, 2023 Shaikh Breanna MD Primary Care Provider Active Start: October 09, 2023 Coil Winder Repair Relationship Specialty Start Date End Date Shen Perez MD [address] [place] [address] PCP - General Family Medicine 06/02/24 Zoraida Chavez NP [address] [place] [address] Nurse Practitioner Family Medicine 06/02/24 Coil Winder Repair Relationship Specialty Start Date End Date Shen Perez MD [address] [place] [address] PCP - General Family Medicine 06/02/24 Zoraida Chavez NP [address] [place] [address] Nurse Practitioner Family Medicine 06/02/24 Coil Winder Repair Relationship Specialty Start Date End Date Shen Perez MD [address] [place] [address] PCP - General Family Medicine 06/02/24 Zoraida Chavez NP [address] [place] [address] Nurse Practitioner Family Medicine 06/02/24 Coil Winder Repair Relationship Specialty Start Date End Date Shen Perez MD [address] [place] [address] PCP - General Family Medicine 06/02/24 Zoraida Chavez NP [address] [place] [address] Nurse Practitioner Family Medicine 06/02/24 Coil Winder Repair Relationship Specialty Start Date End Date Shen Perez MD [address] [place] [address] PCP - General Family Medicine 06/02/24 Zoraida Chavez NP [address] [place] [address] Nurse Practitioner Family Medicine 06/02/24 Coil Winder Repair Relationship Specialty Start Date End Date Shen Perez MD [address] [place] [address] PCP - General Family Medicine 06/02/24 Zoraida Chavez NP [address] [place] [address] Nurse Practitioner Family Medicine 06/02/24 Coil Winder Repair Relationship Specialty Start Date End Date Shen Perez MD [address] [place] [address] PCP - General Family Medicine 06/02/24 Zoraida Chavez NP [address] [place] [address] Nurse Practitioner Family Medicine 06/02/24 Coil Winder Repair Relationship Specialty Start Date End Date Shen Perez MD [address] [place] [address] PCP - General Family Medicine 06/02/24 Zoraida Chavez NP [address] [place] [address] Nurse Practitioner Family Medicine 06/02/24 Coil Winder Repair Relationship Specialty Start Date End Date Shen Perez MD [address] [place] [address] PCP - General Family Medicine 06/02/24 Zoraida Chavez NP [address] [place] [address] Nurse Practitioner Family Medicine 06/02/24 Coil Winder Repair Relationship Specialty Start Date End Date Shaikh Carlos MD [address] [place] [address] PCP - General Internal Medicine 02/27/23 Coil Winder Repair Relationship Specialty Start Date End Date Shen Perez MD [address] [place] [address] PCP - General Family Medicine 06/02/24 Zoraida Chavez NP [address] [place] [address] Nurse Practitioner Family Medicine 06/02/24 Coil Winder Repair Relationship Specialty Start Date End Date Shen Perez MD [address] [place] [address] PCP - General Family Medicine 06/02/24 Zoraida Chvaez NP [address] [place] [address] Nurse Practitioner Family Medicine 06/02/24 Coil Winder Repair Relationship Specialty Start Date End Date Shen Perez MD [address] [place] [address] PCP - General Family Medicine 06/02/24 Zoraida Chavez NP [address] [place] [address] Nurse Practitioner Family Medicine 06/02/24 Coil Winder Repair Relationship Specialty Start Date End Date Shen Perez MD [address] [place] [address] PCP - General Family Medicine 06/02/24 Zoraida Chavez NP [address] [place] [address] Nurse Practitioner Family Medicine 06/02/24 Coil Winder Repair Relationship Specialty Start Date End Date Shen Perez MD [address] [place] [address] PCP - General Family Medicine 06/02/24 Zoraida Chavez NP [address] [place] [address] Nurse Practitioner Family Medicine 06/02/24 Coil Winder Repair Relationship Specialty Start Date End Date Shen Perez MD [address] [place] [address] PCP - General Family Medicine 06/02/24 Zoraida Chavez NP [address] [place] [address] Nurse Practitioner Family Medicine 06/02/24 Coil Winder Repair Relationship Specialty Start Date End Date Shen Perez MD [address] [place] [address] PCP - General Family Medicine 06/02/24 Zoraida Chavez NP [address] [place] [address] Nurse Practitioner Family Medicine 06/02/24 Coil Winder Repair Relationship Specialty Start Date End Date Shen Perez MD [address] [place] [address] PCP - General Family Medicine 06/02/24 Zoraida Chavez NP [address] [place] [address] Nurse Practitioner Family Medicine 06/02/24 Coil Winder Repair Relationship Specialty Start Date End Date Shen Perez MD [address] [place] [address] PCP - General Family Medicine 06/02/24 Zoraida Chavez NP [address] [place] [address] Nurse Practitioner Family Medicine 06/02/24 Coil Winder Repair Relationship Specialty Start Date End Date Shen Perez MD [address] [place] [address] PCP - General Family Medicine 06/02/24 Zoraida Chavez NP [address] [place] [address] Nurse Practitioner Family Medicine 06/02/24 Coil Winder Repair Relationship Specialty Start Date End Date Shen Perez MD [address] [place] [address] PCP - General Family Medicine 06/02/24 Zoraida Chavez NP [address] [place] [address] Nurse Practitioner Family Medicine 06/02/24 Coil Winder Repair Relationship Specialty Start Date End Date Shen Perez MD [address] [place] [address] PCP - General Family Medicine 06/02/24 Zoraida Chavez NP [address] [place] [address] Nurse Practitioner Family Medicine 06/02/24 Coil Winder Repair Relationship Specialty Start Date End Date Shen Perez MD [address] [place] [address] PCP - General Family Medicine 06/02/24 Zoraida Chavez NP [address] [place] [address] Nurse Practitioner Family Medicine 06/02/24 Team Status: Inactive Member Role Status Dates Drew Hirsch MD Attending Provider Active St art: April 14, 2025 End: April 14, 2025 Coil Winder Repair Relationship Specialty Start Date End Date Shen Perez MD [address] [place] [address] PCP - General Family Medicine 06/02/24 Zoraida Chavez NP [address] [place] [address] Nurse Practitioner Family Medicine 06/02/24 Coil Winder Repair Relationship Specialty Start Date End Date Shen Perez MD [address] [place] [address] PCP - General Family Medicine 06/02/24 Zoraida Chavez NP [address] [place] [address] Nurse Practitioner Family Medicine 06/02/24 Goals (unrecognized [...] Reason Onset Date Comments Med Refill 08/30/2024 Reason Onset Date Comments Med Refill 01/03/2025 Reason Onset Date Comments Med Refill 01/12/2025 Reason Onset Date Comments Med Refill 02/23/2025 Reason Onset Date Comments Med Refill 02/25/2025 Reason Onset Date Comments Med Refill 04/04/2025 Reason Comments Diabetes FOR RECORDS PERTAINING TO PATIENTS WHO ARE [...] BE BASED ON THE PRIMARY CLINICAL RECORDS. [facility]. provides no warranty or guarantee of the accuracy or completeness of information in this document.
[2025-06-03 17:08] VITALS: BP 129/69; PULSE 82; O2SAT 97
== END 2025-06-03 17:44 | disposition home or self-care (01) ==
PROVIDERS: Emergency Provider Emergency Medicine; PCP Nurse Practitioner
DX: R07.9 Chest pain, unspecified (principal)
CPT/HCPCS: 36415; 71045; 80048; 84484; 85025; 93005; 99285

== ENCOUNTER 2025-06-10 14:28 | Outpatient (OUT) | payer OTHER, SELFPAY ==
--- OUTSIDE RECORDS SUMMARY | 2025-06-10 14:30 | XMS_ITS | Encounter Summary ---
Author Organization [facility] Address [address] [place] [address] Care Team Providers Care Algology Teacher Name Role Phone Shaikh MEG Carlos Primary Care Provider [phone] Shaikh MEG Carlos Primary Care Provider [phone] Shen Perez MD Primary Care Provider [phone] Debbie Chavez NP Unavailable [phone] Shen Perez MD Unavailable Encounter Details Date Type Department Care Team (Late st Contact Info) Description 09/19/2023 [facility] [address] [place] [address] Barbara Messer NP Social History Tobacco Use [...] often do you attend chur ch or hinduism services? More than 4 times [...] medical care, and heating? Patient declined 08/25/2023 [facility] - Occupational [...] on filedocumented in this encounter Care Teams Algology Teacher Relationship Specialty Start Date End Date Shaikh Carlos MD PCP - General Internal Medicine 09/08/22 02/24/24 Shaikh Carlos MD PCP - General Internal Medicine 02/25/24 06/01/24 Shen Perez MD PCP - General Family Medicine 06/02/24 Shen Perez MD [address] [place] [address] PCP - Devoted 06/08/25 Debbie Chavez NP Nurse Practitioner Family Medicine 06/02/24 documented as of this encounter
--- OUTSIDE RECORDS SUMMARY | 2025-06-10 14:30 | XMS_ITS | Encounter Summary ---
Author Organization [facility] Address [address] [place] [address] Care Team Providers Care Conference Interpreter Name Role Phone Shaikh MEG Carlos Primary Care Provider [phone] Shaikh MEG Carlos Primary Care Provider [phone] Shen Perez MD Primary Care Provider [phone] Debbie Chavez NP Unavailable [phone] Shen Perez MD Unavailable Reason for Visit * Reason Comments Med Refill Encounter Details Date Type Department Care Team (Late st Contact Info) Description 11/17/2023 [facility] [address] [place] [address] Shaikh Carlos MD [address] [place] [address] Hyperlipidemia, unspecified hyperlipidemia type (Primary Dx) Social [...] How often do you attend chur or jain services? More than 4 times per year 08/25/2023 Do you belong to any clubs o r organizations such as mandaen groups, unions, fraternal or athletic groups, or [...] [facility] - Occupational [...] to sleep or slept in a senior care (including now)? No 08/25/2023 Sex and Gender [...] documented in this encounter Plan of Treatment Not on file documented as of this encounter Visit Diagnoses Diagnosis Hyperlipidemia, unspecified hyperlipidemia type- Primary documented in this encounter Care Teams Conference Interpreter Relationship Specialty Start Date End Date Shaikh Carlos MD PCP - General Internal Medicine 09/08/22 02/24/24 Shaikh Carlos MD PCP - General Internal Medicine 02/25/24 06/01/24 Shen Perez MD PCP - General Family Medicine 06/02/24 Shen Perez MD [address] [place] [address] PCP - Devoted 06/08/25 Debbie Chavez NP Nurse Practitioner Family Medicine 06/02/24 documented as of this encounter
--- OUTSIDE RECORDS SUMMARY | 2025-06-10 14:30 | XMS_ITS | Encounter Summary ---
Author Organization [facility] Address [id number] [address] [place] [address] Care Team Providers Care Stonecutter Hand Name Role Phone Shaikh MEG Carlos Primary Care Provider [phone] Encounter Details Date Type Department Care Team (Late st Contact Info) Description 11/06/2021 Orders Only [facility] [address] [place] [address] Oralia Sevilla RN Preop testing [...] documented as of this encounter Care Teams Stonecutter Hand Relationship Specialty Start Date End Date Shaikh Carlos MD PCP - General Internal Medicine 02/27/23 documented as of this encounter
--- OUTSIDE RECORDS SUMMARY | 2025-06-10 14:31 | XMS_ITS | Clinical Summary ---
Author Organization [employer] tem Address [id number] [address] [place] [address] Care Team Providers Care Strategic Communications Manager Name Role Phone Shaikh MEG Carlos Primary Care Provider [phone] Allergies No known active allergies Medications clopidogreL [...] 1975 Fall Risk Screening 2022 COVID-19 Vaccine (2024-2 6 season) 2025 08/15/2023, 07/04/2022, 12/07/2020, Additional history exists Influenza Vaccine 05/09/2025 06/22/2023, , 06/15/2022, Additional history exists DTaP,Tdap and Td Vaccines (2 - Td or Tdap) 06/30/2030 06/30/2020 Zoster (Shingles) Vaccine Completed 2019, 10/11/2019, 12/19/2016 Medical Devices Not on file Insurance Care Teams Strategic Communications Manager Relationship Specialty Start Date End Date FawShaikh mandel MD PCP - General Internal Medicine 02/27/23
--- OUTSIDE RECORDS SUMMARY | 2025-06-10 14:31 | XMS_ITS | Encounter Summary ---
Author Organization [facility] Address [address] [place] [address] Care Team Providers Care Syrup Mixer Name Role Phone Shen Perez MD Primary Care Provider [phone] Debbie Chavez NP Unavailable [phone] Shen Perez MD Unavailable Encounter Details Date Type Department Care Team (Late st Contact Info) Description 03/14/2025 [facility] [address] [place] [address] Social History Tobacco Use Types Packs/Day Years [...] any clubs o r organizations such as holiness groups, unions, fraternal or athletic groups, or [...] declined 08/25/2023 [facility] - Occupational Stress Questionnaire Answer Date [...] place to sleep or slept in a alf (including now)? No 08/25/2023 Sex and Gender [...] ECG 12 lead (03/14/2025 10:18 AM EDT) [facility] ECG ORDERABLES Final Result documented in this encounter Visit Diagnoses Not on filedocumented in this encounter Care Teams Syrup Mixer Relationship Specialty Start Date End Date Shen Perez MD PCP - General Family Medicine 06/02/24 Shen Perez MD [address] [place] [address] PCP - Devoted 06/08/25 Debbie Chavez NP Nurse Practitioner Family Medicine 06/02/24 documented as of this encounter
--- OUTSIDE RECORDS SUMMARY | 2025-06-10 14:31 | XMS_ITS | Encounter Summary ---
Author Organization [facility] Address [address] [place] [address] Care Team Providers Care Parachute Panel Joiner Name Role Phone Shaikh MEG Carlos Primary Care Provider [phone] Shen Perez MD Primary Care Provider [phone] Debbie Chavez NP Unavailable [phone] Shen Perez MD Unavailable Encounter Details Date Type Department Care Team (Late st Contact Info) Description 03/02/2024 Clinisync Result Encounter [facility] External Department Unsolicited Shaikh Carlos MD [address] [facility] [place] [address] Social History Tobacco Use Types Packs/Day Years [...] often do you attend chur ch or taoist services? More than 4 times per year [...] care, and heating? Patient declined 08/25/2023 [facility] - Occupational [...] EDT Narrative 03/02/2024 7:13 [place] [address] XRay Report Signed Patient: MARTI MAHAJAN MR#: [id number] : 1955 Acct:[id number] Age/Sex: 68 / M ADM Date: 03/01/24 Loc: RAD Attending Dr: Shaikh Breanna Foster Ordering Physician: Shaikh Kristin Carlos Date of Service: 03/01/24 Procedure(s): XR shoulder LT min 2V Accession Number(s): [id number] cc: Shaikh Kristin Carlos [address] [address] Patient Name: MARTI MAHAJAN MRN: [id number] date: 1955 Sex: M Assigned Patient Location: RAD Current Patient Location: [facility] Accession/Order Number: [id number] Exam Date: 03/01/2024 16:35 Report Date: 03/02/2024 [...] Signed By: 03/02/24 0713 DD/ 0710 TD/TT: Filling Machine Set Up Mechanic: Procedure Note Radiology, Radiologist, MD - 03/02/2024 [place] [address] XRay Report Signed Patient: MARTI MAHAJAN LMR#: [id number] : 1955cct:[id number] Age/Sex: 68 / MADM Date: 03/01/24 Loc: RAD Attending Dr: Shaikh Breanna Foster Ordering Physician: Shaikh Kristin Carlos Date of Service: 03/01/24 Procedure(s): XR shoulder LT min 2V Accession Number(s): [id number] cc: Shaikh Kristin Carlos [address] [address] Patient Name: MARTI MAHAJAN MRN: [id number] date: 1955 Sex: M Assigned Patient Location: RAD Current Patient Location: RAD Accession/Order Number: [id number] Exam Date: 03/01/2024 16:35 Report Date: 03/02/2024 [...] M.D. Signed By:03/02/24 0713 DD/ 0710 TD/TT: Filling Machine Set Up Mechanic: us Shaikh Breanna WEAVER IMG XR PROCEDURES Final Result documented in this encounter Visit Diagnoses Not on filedocumented in this encounter Care Teams Parachute Panel Joiner Relationship Specialty Start Date End Date Shaikh Carlos MD PCP - General Internal Medicine 02/25/24 06/01/24 Shen Perez MD PCP - General Family Medicine 06/02/24 Shen Perez MD [address] [place] [address] PCP - Devoted 06/08/25 Debbie Chavez NP Nurse Practitioner Family Medicine 06/02/24 documented as of this encounter
--- OUTSIDE RECORDS SUMMARY | 2025-06-10 14:31 | XMS_ITS | Encounter Summary ---
Author Organization [facility] Address [address] [place] [address] Care Team Providers Care Fund Director Name Role Phone Shen Perez MD Primary Care Provider [phone] Debbie Chavez ELEMENTARY SPANISH TEACHER Unavailable [phone] Shen Perez MD Unavailable Encounter Details Date Type Department Care Team (Late st Contact Info) Description 04/05/2025 Abstract [facility] [address] [place] [address] Sophie Delarosa NP [address] [facility] [place] [address] Social History Tobacco Use Types Packs/Day Years [...] often do you attend chur ch or bahai services? More than 4 times per year 08/25/2023 Do you belong to any clubs o r organizations such as latter day groups, unions, fraternal or athletic groups, or [...] medical care, and heating? Patient declined 08/25/2023 [facility] - [...] No 08/25/2023 Housing Stability Vital Sign Answer Miegl e Recorded In the last 12 months, [...] place to sleep or slept in a jail (including now)? No 08/25/2023 Sex and Gender Information Value Date Recorded Sex Assigned at Not on file Legal Sex Male 12:47 PM EDT Gender Identity Not on file Sexual Orientation Not on file documented as of this encounter Plan of Treatment Not on file documented as of this encounter Visit Diagnoses Not on filedocumented in this encounter Care Teams Fund Director Relationship Specialty Start Date End Date Shen Perez MD PCP - General Family Medicine 06/02/24 Shen Perez MD [address] [place] [address] PCP - Devoted 06/08/25 Debbie Chavez NP Nurse Practitioner Family Medicine 06/02/24 documented as of this encounter
--- OUTSIDE RECORDS SUMMARY | 2025-06-10 14:31 | XMS_ITS | Encounter Summary ---
Author Organization [facility] Address [id number] [address] [place] [address] Care Team Providers Care Pressroom Foreman Name Role Phone Shaikh MEG Carlos Primary Care Provider [phone] Encounter Details Date Type Department Care Team (Late st Contact Info) Description 09/28/2021 Orders Only [facility] [address] [place] [address] Oralia Sevilla, MANA Preop testing [...] Specimen Naso Pharynx 10/06/2021 9:18 PM EST [facility] Sent to Testing to be performed at [facility]. 10/06/2021 9:18 PM EST [facility] to Follow. 10/06/2021 9:18 PM EST [facility] Nasopharyngeal structure / Unknown 10/06/2021 10:57 AM EST 10/06/2021 9:14 PM EST us Anahi Yepez MD MICROBIOLOGY - GENERAL ORDE BHUMI Final Result [facility] [address] [facility] [facility] [facility] [place] [address] documented in this encounter Visit Diagnoses Diagnosis Preop testing- Primary Unspecified pre-operative examination documented in this encounter Additional Health Concerns Infection Onset Date Last Indicated Resolved Time COVID-19 Rule-Out 10/29/2021 10/29/2021 10/29/2021 7:38 PM EST COVID-19 Rule-Out 11/19/2021 11/19/2021 11/19/2021 9:42 PM EDT documented as of this encounter Care Teams Pressroom Foreman Relationship Specialty Start Date End Date Shaikh Carlos MD PCP - General Internal Medicine 02/27/23 documented as of this encounter
--- OUTSIDE RECORDS SUMMARY | 2025-06-10 14:31 | XMS_ITS | Clinical Summary ---
Author Organization [facility] Healthcare Address [address] [place] [address] Care Team Providers Care Milling Machine Operator Name Role Phone Shen Perez MD Primary Care Provider [phone] Debbie Chavez NP Unavailable [phone] Shen Perez MD Unavailable Allergies No known active allergies Medications tadalafil (Cialis) 10 MG tablet Take 20 mg by mouth. 05/20/20 23 Active aspirin 81 MG EC tabletIndications: TIA (transient ischemic attack) Take 1 tablet (81 mg) by mouth Daily 90 tablet 3 08/12/20 24 025 Active metoprolol succinate XL (Toprol-XL) 50 MG 24 hr tabletIndications: Primary hypertension Take 1 tablet (50 mg) by mouth Daily 90 tablet 1 01/13/20 25 Active atorvastatin (Lipitor) 20 MG tabletIndications: Hyperlipidemia, unspecified hyperlipidemia type Take 1 tablet (20 mg) by mouth Daily 90 tablet 1 02/24/20 25 Active metFORMIN (Glucophage) 500 MG tabletIndications: Prediabetes Take 1 tablet (500 mg) by mouth in the morning and 1 tablet (500 mg) in the evening. Take with meals. 180 tablet 1 02/26/20 25 Active dutasteride (Avodart) 0.5 MG capsule Take 0.5 mg by mouth Daily Active fluticasone (Flonase) 50 MCG/ACT nasal sprayIndications:A cute rhinitis Administer 1-2 sprays into each nostril Daily Shake gently. Before first use, prime pump. After use, clean tip and replace cap. 48 g 1 08/26/ 025 Active ferrous sulfate (FeroSul) 325 (65 Fe) MG tabletIndications: Iron deficiency Take 1 tablet (325 mg) by mouth in the morning. Take with meals. 90 tablet 1 05/03/20 025 Active tamsulosin (Flomax) 0.4 MG 24 hr capsuleIndications :BPH with urinary obstruction Take 1 capsule (0.4 mg) by mouth in the morning and 1 capsule (0.4 mg) before bedtime. 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 Hypertension 08/26/2023 Assessment & Plan (04/12/2025 7:05 AM EDT): Please check blood pressure daily and record DASH diet Limit caffeine Take medication as directed Contact office if chest pain, pressure, dizziness, shortness of breath, swelling legs Recommend slow position changes Current meds: metoprolol Assessment & Plan (12/13/2024 6:32 AM EDT): [...] pneumonia vaccine. Prediabetes 03/01/2022 Assessment & Plan (04/12/2025 2:55 PM EDT): Metformin therapy A1c 6.3% 04/12/25, 5.8% on 12/18/24 Assessment & Plan (12/13/2024 6:33 AM EDT): [...] Encounters Date Type Department Care Team Description 05/03/2025 [facility]ill [facility] [address] [place] [phone] Sophie Delarosa NP Iron deficiency 05/03/2025 [facility] [address] [place] [phone] Sophie Delarosa NP Acute rhinitis 04/12/2025 2:20 PM EDT Office Visit [facility] [address] [place] [address] Sophie Delarosa NP Prediabetes (Primary Dx); Primary hypertension ; Hydrocele in adult; Acute non-recurrent maxillary sinusitis; Lymphocytopenia 04/12/2025 Bamboo flowsheet [facility] [address] [place] [address] Sophie Delarosa NP 04/05/2025 Abstract [facility] [address] [place] [address] Sophie Delarosa NP 04/04/2025 Refill [facility] [address] [place] [address] Shen Perez MD Iron deficiency 03/26/2025 Clinisync Result Encounter [facility] External Department Unsolicited Provider, Generic External Data 03/16/2025 Telephone [facility] [address] [place] [address] Sophie Delarosa NP 03/16/2025 Orders Only [facility] [address] [place] [address] Sophie Delarosa, DAYNE Abnormal EKG (Primary Dx) 03/14/2025 Clinisync Result Encounter [facility] External Department Unsolicited Provider, Generic External Data 03/14/2025 Orders Only [facility] [address] [place] [address] 03/14/2025 Abstract [facility] [address] [place] [address] Sophie Delarosa NP 03/14/2025 Clinisync Result Encounter [facility] External Department Unsolicited Provider, Generic External Data from Last 3 Months Immunizations Immunization Administration Dates Next Due Influenza, High Dose Seasona l, Preservative Free 07/10/2024 Influenza, Seasonal, Quadriv alent, Adjuvanted 06/22/2023,06/15/2022 Influenza, Unspecified 07/10/2024,2023,06/22/2023,2021,06/30/2020,07/29/2019,07/17/2018 Influenza, injectable, MDCK, preservative free, quadrivalent 07/17/2018 Influenza, injectable, quadr ivalent, preservative free 06/30/2020,07/29/2019 Influenza, seasonal, injectable 06/08/2024 Novel [id number], preservative-free 09/18/2009 Pneumococcal Conjugate PCV 20 09/13/2023 RSV, recombinant, [...] week 08/25/2023 How often do you attend [facility] or latter-day services? More than 4 times per year 08/25/2023 Do you belong to any clubs o r organizations such as mormonism groups, unions, fraternal or athletic groups, or [...] heating? Patient declined 08/25/2023 [facility] Occupat ional [facility] - Occupational Stress Questionnaire Answer Date [...] Sign Reading Time Taken Comments Blood Pressure 138/76 04/12/2025 2:30 PM EDT Pulse 86 04/12/2025 2:30 PM EDT Temperature 36.9 C (98.5 F) 04/12/2025 2:30 PM EDT Respiratory Rate 22 04/12/2025 2:30 PM EDT Oxygen Saturation 96% 04/12/2025 2:30 PM EDT Inhaled Oxygen Concentration - - Weight 116 kg (255 lb 12.8 oz) 04/12/2025 2:30 P M EDT Height 193 cm (6' 4 ) 08/24/2024 3:25 PM EST Body Mass Index 31.14 08/24/2024 3:25 PM EST Plan of Treatment Health Maintenance Due Date Last Done Comments CT Colonography 1955 FIT-DNA 1955 FIT 1955 FOBT 1955 Sigmoidoscopy 1955 Influenza Vaccine (#1) 2025 4, 07/10/2024, 06/08/2024, Additional history exists Colonoscopy 10/07/2027 10/07/2017 Colorectal Cancer Screening 10/07/2027 Pneumococcal Vaccine: 65+ Years Completed 4 Procedures Procedure Name Priority Date/Time Associated Diagnosis Comments POCT GLYCOSYLATED HEMOGLOBIN (HGB A1C) Routine 04/12/2025 2:42 PM EDT Prediabetes CA ECHO DOPPLER COMPLETE 03/26/2025 6:15 PM EDT ECG 12-LEAD Routine 03/14/2025 10:18 AM EDT [facility] APTT Routine 03/14/2025 8:52 AM EDT [facility] PROTHROMBIN TIME INR W/O COUM Routine 03/14/2025 8:52 AM EDT ALL CBC WITH AUTO DIFF Routine 03/14/2025 8:52 AM EDT ALL BASIC METABOLIC PANEL Routine 03/14/2025 8:52 AM EDT ECG 12-LEAD 03/14/2025 6:49 AM EDT from Last 3 Months Results * (ABNORMAL) POCT glycosylated hemoglobin (Hb A1C) docked device (04/12/2025 2:42 PM EDT) Hemoglobin A1C 6.3 Blood Venous blood specimen / Unknown 04/12/2025 2:42 PM EDT us Sophie Delarosa NP POINT OF CARE TEST ENTER/EDIT O RDERABLES Final Result * CA ECHO DOPPLER COMPLETE (03/26/2025 6:15 PM EDT) Anatomical Region Laterality Modality Other 03/26/2025 6:15 PM EDT Narrative 03/26/2025 6:16 [place] [address] Cardiology Report Signed Patient: MARTI MAHAJAN MR#: [id number] : 1955 Acct:[id number] Age/Sex: 69 / M ADM Date: 03/24/25 Loc: CARD Attending Dr: Misael Ryees M.D. Ordering Physician: Misael Reyes M.D. Date of Service: 03/24/25 Procedure(s): CA echo doppler complete Accession Number(s): [id number] cc: Sophie Delarosa TRAVEL REGISTERED NURSE NICU; Misael Reyes M.D. Patient Name: MARTI MAHAJAN MR#: [id number] : 1955 Exam Date: 03/24/2025 Ordering Doctor: [...] M.D. Signed By: 03/26/251815 DD/ 14 TD/TT: Protein Purification Scientist: Procedure Note Radiology, Radiologist, - 03/26/2025 [place] [address] Cardiology Report Signed Patient: MARTI MAHAJAN LMR#: [id number] : 7Acct:[id number] Age/Sex: 69 / MADM Date: 03/24/25 Loc: CARD Attending Dr: Misael Reyes M.D. Ordering Physician: Misael Reyes M.D. Date of Service: 03/24/25 Procedure(s): CA echo doppler complete Accession Number(s): [id number] cc: Sophie Delarosa NP; Misael Reyes M.D. Patient Name: MARTI MAHAJAN MR#: [id number] : 1955 Exam Date: 03/24/2025 Ordering Doctor: [...] 18:15 Dictated By: Misael Reyes M.D. Signed By:07/1815 DD/ 14 TD/TT: Protein Purification Scientist: Generic External Data Provider [facility] Final Result * ECG 12 lead (03/14/2025 10:18 AM EDT) [facility] ECG ORDERABLES Final Result * [facility]/O COUM (03/14/2025 8:52 AM EDT) PROTHROMBIN TIME 10.5 9.0 - 11.6 sec TBH TBH INR 0.99 TBH Comment: DESIRED INR: 2.0-3.0 CONDITIONS NOT LISTED BELOW 2.5-3.5 FOR PROSTHETIC HEART VALVE REPLACEMENT 2.5-3.5 RECURRENT THROMBOSIS 03/14/2025 8:52 AM EDT 03/14/2025 9:00 AM EDT Narrative [facility] - 03/14/2025 9:28 AM EDT Generic External Data Provider [facility] F inal Result [facility] * [facility] APTT (03/14/2025 8:52 AM EDT) PARTIAL THROMBOPLASTIN TIME 25.4 22.3 - 36.2 sec TBH 03/14/2025 8:52 AM EDT 03/14/2025 9:00 AM EDT Narrative [facility] - 03/14/2025 9:28 AM EDT Generic External Data Provider [facility] F inal Result [facility] * (ABNORMAL) ALL CBC WITH AUTO DIFF [...] Data Provider [facility] F inal Result [facility] * (ABNORMAL) ALL BASIC METABOLIC PANEL (03/14/2025 [...] 0.70 - 1.30 mg/dL TBH TBH EGFR-AF SYRIAN >60 >=60 mL/min/1.7 3m 2 TBH TBH EGFR-NON AF SYRIAN >60 >=60 mL/min/1.7 3m 2 TBH BUN CREATININE RATIO 26.1 TBH CALCIUM 9.1 8.5 - 10.1 mg/dL [facility]H 03/14/2025 8:52 AM EDT 03/14/2025 9:00 AM EDT Narrative [facility] - 03/14/2025 9:18 AM EDT Generic External Data Provider [facility] F inal Result Performing Organization Address City/State/[facility] Co de Phone Number [facility] * ECG 12-LEAD (03/14/2025 6:49 AM EDT) Anatomical Region Laterality Modality Other 03/14/2025 6:49 AM EDT Narrative 03/14/2025 8:31 [place] [address] Electrocardiograph Report Signed Patient: MARTI MAHAJAN MR#: [id number] : 1955 Acct:[id number] Age/Sex: 69 / M ADM Date: 03/14/25 Loc: PST Attending Dr: Neri Hirsch M.D. Ordering Physician: Neri Hirsch M.D. Date of Service: 03/14/25 Procedure(s): ECG 12 lead Accession Number(s): [id number] cc: [facility] Test Date: 2025-03-14 Pat Name: MARTI MAHAJAN Department: Room: - Gender: Male Plastic Boat Buffer: : 1955 Requested By: NERI HIRSCH Order Number: [id number] Reading MD: MARTI MIKE M.D. Measurements Intervals [place] Rate: 76 P: 153 VA: 195 QRS: -21 QRSD: 115 T: 150 [...] MIKE Signed By: 03/14/252030 DD/ 8 TD/TT: Protein Purification Scientist: Procedure Note Radiology, Radiologist, MD - 03/14/2025 [place] [address] Electrocardiograph Report Signed Patient: MARTI MAHAJAN LMR#: [id number] : 1955cct:[id number] Age/Sex: 69 / MADM Date: 03/14/25 Loc: PST Attending Dr: Neri Hirsch M.D. Ordering Physician: Neri Hirsch M.D. Date of Service: 03/14/25 Procedure(s): ECG 12 lead Accession Number(s): [id number] cc: [facility] Test Date: 2025-03-14 Pat Name: MARTI MAHAJAN Department: Room: - Gender: Male [employer]: : 1955 Requested By: NERI HIRCSH Order Number: [id number] Reading MD: MARTI MIKE M.D. Measurements Intervals [place] Rate: 76 P: 153 VA: 195 QRS: -21 QRSD: 115 T: 150 [...] Dictated By: MARTI MIKE Signed By:03/14/252030 DD/ TD/TT: Protein Purification Scientist: us Generic External Data Provider [facility] Final Result from Last 3 Months Insurance [employer] Care Teams Milling Machine Operator Relationship Specialty Start Date End Date Shen Perez MD PCP - General Family Medicine 06/02/24 Shen Perez MD [address] [place] [address] PCP - Devoted 06/08/25 Debbie Chavez NP Nurse Practitioner Family Medicine 06/02/24
--- OUTSIDE RECORDS SUMMARY | 2025-06-10 14:31 | XMS_ITS | Encounter Summary ---
Author Organization [facility] Address [address] [facility] [place] [address] Care Team Providers Care Training Consultant Name Role Phone Shaikh MEG Carlos Primary Care Provider [phone] Shaikh MEG Carlos Primary Care Provider [phone] Shen Perez MD Primary Care Provider [phone] Debbie Chavez NP Unavailable [phone] Shen Perez MD Unavailable Encounter Details Date Type Department Care Team (Late st Contact Info) Description 09/24/2023 Orders Only [facility] [address] [place] [address] Shaikh Carlos MD [address] [place] [address] Social History Tobacco Use Types Packs/Day Years [...] any clubs o r organizations such as anabaptism groups, unions, fraternal or athletic groups, or [...] medical care, and heating? Patient declined 08/25/2023 [facility]at ionfl Health - Occupational Stress Questionnaire Answer Date [...] on filedocumented in this encounter Care Teams Training Consultant Relationship Specialty Start Date End Date Shaikh Carlos MD PCP - General Internal Medicine 09/08/22 02/24/24 Shaikh Carlos MD PCP - General Internal Medicine 02/25/24 06/01/24 Shen Perez MD PCP - General Family Medicine 06/02/24 Shen Perez MD [address] [place] [facility] [place] [address] PCP - Devoted 06/08/25 Debbie Chavez NP Nurse Practitioner Family Medicine 06/02/24 documented as of this encounter
--- OUTSIDE RECORDS SUMMARY | 2025-06-10 14:31 | XMS_ITS | Encounter Summary ---
Author Organization [facility] Address [address] [place] [address] Care Team Providers Care Audio Specialist Name Role Phone Shen Perez MD Primary Care Provider [phone] Debbie Chavez BRANCH ACCOUNT EXECUTIVE Unavailable [phone] Shen Perez MD Unavailable Encounter Details Date Type Department Care Team (Late st Contact Info) Description 03/14/2025 Abstract [facility] [address] [place] [address] Sophie Delarosa NP [address] [place] [address] Social History Tobacco Use Types Packs/Day Years [...] any clubs o r organizations such as confucianist groups, unions, fraternal or athletic groups, or [...] 08/25/2023 [facility] Health - Occupational [...] place to sleep or slept in a longterm (including now)? No 08/25/2023 Sex and Gender Information Value Date Recorded Sex Assigned at Not on file Legal Sex Male 12:47 PM EDT Gender Identity Not on file Sexual Orientation Not on file documented as of this encounter Plan of Treatment Not on file documented as of this encounter Visit Diagnoses Not on filedocumented in this encounter Care Teams Audio Specialist Relationship Specialty Start Date End Date Shen Perez MD PCP - General Family Medicine 06/02/24 Shen Perez MD [address] [place] [address] PCP - Devoted 06/08/25 Debbie Chavez NP Nurse Practitioner Family Medicine 06/02/24 documented as of this encounter
--- OUTSIDE RECORDS SUMMARY | 2025-06-10 14:31 | XMS_ITS | Encounter Summary ---
Author Organization [facility] Address [address] [place] [address] Care Team Providers Care Electrical Equipment Technician Name Role Phone Shaikh MEG Carlos Primary Care Provider [phone] Shen Perez MD Primary Care Provider [phone] Debbie Chavez NP Unavailable [phone] Shen Perez MD Unavailable Encounter Details Date Type Department Care Team (Late st Contact Info) Description 03/02/2024 Clinisync Result Encounter [facility] External Department Unsolicited Shaikh Carlos MD [address] [facility] [place] [address] Social History Tobacco Use Types Packs/Day Years [...] medical care, and heating? Patient declined 08/25/2023 [facility] of Occupat ional Health - Occupational [...] place to sleep or slept in a assisted (including now)? No 08/25/2023 Sex and Gender [...] Laterality Modality Lower Extremities, Knee Left Radiogra [facility] Imaging 03/02/2024 7:09 AM EDT Narrative 03/02/2024 7:11 [place] [address] XRay Report Signed Patient: MARTI MAHAJAN MR#: [id number] : 1955 Acct:[id number] Age/Sex: 68 / M ADM Date: 03/01/24 Loc: RAD Attending Dr: Shaikh Breanna Foster Ordering Physician: Shaikh Kristin Carlos Date of Service: 03/01/24 Procedure(s): XR knee LT 3V Accession Number(s): [id number] cc: Shaikh Kristin Carlos [address] [address] Patient Name: MARTI MAHAJAN MRN: [facility]:[id number] date: 1955 Sex: M Assigned Patient Location: [facility] Current Patient Location: Accession/Order Number: [id number] Exam Date: 03/01/2024 16:35 Report Date: 03/02/2024 07:09 At the request of: SHAIKH BREANNA Procedure: XR knee LT 3V PROCEDURE: XR knee LT 3V COMPARISON: None. HISTORY: Chronic Left knee pain M25.512 FINDINGS: BONES:No acute fracture or dislocation. Severe osteoarthritis of the anterior compartment with hkke-[id number]-[id number] articulation and marginal osteophyte formation SOFT TISSUES:Negative. No visible soft tissue swelling. EFFUSION:None visible. OTHER: Negative. XR/XR knee LT 3V IMPRESSION: Severe patellofemoral osteoarthritis Electronically authenticated by: MELISSA OVIEDO Date: 03/02/2024 07:09 Dictated By: Melissa Oviedo M.D. Signed By: 03/02/24 0711 DD/ 0709 TD/TT: Director College: Procedure Note Radiology, Radiologist, MD - 03/02/2024 [place] [address] XRay Report Signed Patient: MARTI MAHAJAN LMR#: [id number] : 1955cct:[id number] Age/Sex: 68 / MADM Date: 03/01/24 Loc: RAD Attending Dr: Shaikh Breanna Foster Ordering Physician: Shaikh Kristin Carlos Date of Service: 03/01/24 Procedure(s): XR knee LT 3V Accession Number(s): [id number] cc: Shaikh Kristin Carlos [address] [address] Patient Name: MARTI MAHAJAN MRN: [id number] date: 1955 Sex: M Assigned Patient Location: [facility] Current Patient Location: Accession/Order Number: [id number] Exam Date: 03/01/2024 16:35 Report Date: 03/02/2024 07:09 At the request of: SHAIKH BREANNA Procedure: XR knee LT 3V PROCEDURE: XR knee LT 3V COMPARISON: None. HISTORY: Chronic Left knee pain M25.512 FINDINGS: BONES:No acute fracture or dislocation. Severe osteoarthritis of theanterior compartment with rcwb-si-[id number] articulation and marginal osteophyteformation SOFT TISSUES:Negative. No visible soft tissue swelling. EFFUSION:None visible. OTHER: Negative. XR/XR knee LT 3V IMPRESSION: Severe patellofemoral osteoarthritis Electronically authenticated by: MELISSA OVIEDO Date: 03/02/2024 07:09 Dictated By: Melissa Oviedo M.D. Signed By:03/02/24 0711 DD/ 0709 TD/TT: Director College: Shaikh Breanna [facility] IMG XR PROCEDURES Final Result documented in this encounter Visit Diagnoses Not on filedocumented in this encounter Care Teams Electrical Equipment Technician Relationship Specialty Start Date End Date Shaikh Carlos MD PCP - General Internal Medicine 02/25/24 06/01/24 Shen Perez MD PCP - General Family Medicine 06/02/24 Shen Perez MD [address] [place] [address] PCP - Devoted 06/08/25 Debbie Chavez NP Nurse Practitioner Family Medicine 06/02/24 documented as of this encounter
--- OUTSIDE RECORDS SUMMARY | 2025-06-10 14:31 | XMS_ITS | Encounter Summary ---
Author Organization [facility] Address [address] [facility] [place] [address] Care Team Providers Care Dismantler Name Role Phone Shaikh MEG Carlos Primary Care Provider [phone] Shaikh MEG Carlos Primary Care Provider [phone] Shen Perez MD Primary Care Provider [phone] Debbie Chavez NP Unavailable [phone] Shen Perez MD Unavailable Encounter Details Date Type Department Care Team (Late st Contact Info) Description 09/17/2023 Orders Only [facility] [address] [address] Shaikh Carlos MD [address] [place] [address] Social History Tobacco Use Types Packs/Day Years [...] How often do you attend chur or pentecostal services? More than 4 times per year 08/25/2023 Do you belong to any clubs o r organizations such as baptism groups, unions, fraternal or athletic groups, or [...] medical care, and heating? Patient declined 08/25/2023 [facility] Occupat ionms Health - Occupational Stress Questionnaire Answer Date [...] - Miscellaneous Test (09/04/2023 11:01 AM EST) us Shaikh Breanna [facility] LAB BLOOD ORDERABLES Final Resu lt * - Miscellaneous Test (08/28/2023 2:36 PM EST) us Shaikh Breanna [facility] BLOOD ORDERABLES Final Resu lt documented in this encounter Visit Diagnoses Not on filedocumented in this encounter Care Teams Dismantler Relationship Specialty Start Date End Date Shaikh Carlos MD PCP - General Internal Medicine 09/08/22 02/24/24 Shaikh Carlos MD PCP - General Internal Medicine 02/25/24 06/01/24 Shen Perez MD PCP - General Family Medicine 06/02/24 Shen Perez MD [address] [place] [address] PCP - Devoted 06/08/25 Debbie Chavez NP Nurse Practitioner Family Medicine 06/02/24 documented as of this encounter
--- OUTSIDE RECORDS SUMMARY | 2025-06-10 14:34 | XMS_ITS | CCD ---
Author Organization [facility] Care Team Providers Care Swatch Clerk Name Role Phone SHAIKH Best CARLOS Admitting Unavailable SHAIKH Best CARLOS Attending Unavailable SHAIKH Best CARLOS Primary Care Unavailable SHAIKH Best CARLOS Consulting Unavailable SHAIKH CARLOS Primary Care Physician Shen Perez MD Primary Care Provider [phone] Scott OSCAR, Zoraida Unavailable Shaikh Carlos MD Primary Care Provider Scott OSCAR, Zoraida Unavailable SHAIKH CARLOS Attending Unavailable APLING, BARBARA Cuenca Attending Unavailable APLING, BARBARA Cuenca Attending Unavailable APLKEELEY, BARBARA Cuenca Attending Unavailable APLKEELEY, BARBARA Cuenca Attending Unavailable ZORAIDA CHAVEZ Attending UnavailSOPHIE Garcia Attending Unavailable MISAEL REYES Attending Unavailable Drew Hirsch MD Attending Provider Drew Hirsch Attending Unavailable Drew Hirsch Admitting Unavailable SOPHIE DELAROSA Primary Care Physician [phone] Drew HIRSCH Attending Unavailable Drew HIRSCH Attending Unavailable Drew HIRSCH Attending Unavailable Drew HIRSCH Attending Unavailable Drew HIRSCH Attending Unavailable Drew HIRSCH Attending Unavailable Drew HIRSCH Attending Unavailable Drew HIRSCH Attending Unavailable SOPHIE DELAROSA Referring Unavailable Clinton Marr DO Attending Provider [place] [employer]IOR ELECTRICAL PROJECT MANAGER-C, Sophie Retana Primary Care Provider [place] [employer]IOR ELECTRICAL PROJECT MANAGER-C, Sophie Retana Attending Provider Allergies Allergy Classification Reported Allergen(s) Allergy Type Date of Onset Reaction(s) Facility (1 source) No Known Medication Allergies; Translations: [No Known Medication Allergies] Propensity to adverse reactions (disorder) [facility] Repository Medications Current Medications Medication Drug Class(es) [...] 1 tablet by mouth once daily atorvastatin 20 mg oral tablet (20 sources) HMG-CoA Reductase Inhibitor Start: 2023 End: 05-24-2025 take 1 tablet by mouth once daily cetirizine hydrochloride 10 mg oral tablet (7 sources) Histamine-1 Receptor Antagonist Start: 08-24-2024 End: 12-13-2024 take 1 tablet by mouth once daily cetirizine (ZyrTEC) 10 MG tablet Indications: Acute rhinitis Take 1 tablet (10 mg) by mouth Daily 30 tablet 2 08/24/2024 12/13/2024 Discontinued (Therapy completed) diclofenac sodium 0.01 mg/mg topical gel (17 [...] Daily, # 90 cap(s), Refills(s) 3, Pharmacy: [id number], 192, cm, 01/03/25 12:43:00 EDT, Height/Length Dosing, 122.9, kg, 01/03/25 12:43:00 EDT, Weight Dosing Start Date: 01/03/25 Status: Ordered Quantity: 90.0 Unit: cap(s) Repeat number: 4 Indications: Benign prostatic hyperplasia with lower urinary tract symptoms; ferrous sulfate 325 mg oral tablet (20 sources) Start: 10-09-2023 End: 08-01-2025 take 1 tablet by mouth once daily fluticasone propionate 0.05 mg/actuat metered dose nasal [...] Nonsteroidal Anti-inflammatory Drug Start: 09-27-2019 End: 06-04-2025 take 1 tablet by mouth once daily metFORMIN hydrochloride 500 mg oral tablet (20 sources) Biguanide Start: 2023 End: 05-26-2025 take 1 tablet by mouth twice daily take 1 tablet by abdoul th once daily at breakfast metFORMIN (GLUCOPHAGE) 500 mg tablet Rufino e 500 mg by mouth daily with breakfast. 0 Active 24 hr metoprolol succinate 50 mg extended release oral tablet (20 sources) beta-Adrenergic Karolyn Start: 2023 End: 04-12-2025 take 1 tablet by mouth once daily Start: 01-21-2022 take 1 tablet by abdoul [...] (20 sources) Phosphodiesterase 5 Inhibitor Start: 10-09-2023 End: 05-30-2025 Start: 2023 take 2 tablets by mo uth once daily as needed Cialis 10 mg Tab 20 mg = 2 tab(s), Oral, Daily, PRN for erectile dysfunction, Refills(s) 0 Start Date: 05/20/23 Status: Ordered Repeat number: 1 tamsulosin hydrochloride 0.4 mg oral capsule (20 sources) alpha-Adrenergic Karolyn Start: 11-29-2024 End: 06-04-2025 take 1 capsule [...] 1 capsule by mo ut twice daily Completed/Discontinued Medications Medication Drug Class(es) Dates Sig (Normalized) Sig (Original) ciprofloxacin 500 mg oral tablet (1 source) Quinolone Antimicrobial Start: take 1 tablet by mouth once daily Cipro 500 mg Tab 500 mg = 1 tab(s), Oral, Daily, take one tab day before procedure and one tab after procedure, # 2 tab(s), Refills(s) 0, Pharmacy: [facility], 192, cm, 01/03/25 12:43:00 EDT, Height/Length Dosing, 122.9, kg, 01/03/25 12:43:00 EDT, Weight Dosing Start Date: 01/03/25 Status: Ordered Quantity: 2.0 Unit: tab(s) Repeat number: 1 clopidogrel 75 mg oral tablet (8 sources) P2Y12 Platelet Inhibitor Start: 3 End: 4 take 1 tablet by mouth once daily Clopidogrel 75 mg tablet Discontinued 75 MG PO Daily October 09, 2023 1:00am October 09, 2023 10:29am 1 ml methylPREDNISolone acetate 40 mg/ml injection (4 sources) Corticosteroid Start: 4 End: 4 methylPREDNISolone acetate (DEPO-Medrol) injection 40 mg Start: 06-23-2024 End: 06-23-2024 40 mg, Intra-articular, Once PRN Procedure, Starting on Fri06/23/24 at 0806, For 1 dose Problems Active Problems Problem Classification Problem Date Documented Date Episodic/Chronic Aortic; peripheral; and visceral artery aneurysms (7 sources) Aneurysm of aortic arch; 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] Onset: 03-28-2025 03-28-2025 Chronic Calculus of urinary tract (4 sources) History of calculus of kidney 2023 Episodic Cardiac dysrhythmias (2 sources) Ventricular premature depolarization; Translations: [Ventricular premature depolarization] Onset: 03-18-2025 Chronic Deficiency and other anemia (20 sources) Iron deficiency anemia; Translations: [Iron deficiency anemia, unspecified] Onset: 02-25-2024 02-25-2024 Episodic Diabetes mellitus without complication (5 sources) Type 2 diabetes mellitus without complications; Translations: [Diabetes mellitus] Onset: 06-28-2022 2023 Chronic Diabetes mellitus without complication (20 sources) Prediabetes; Translations: [Prediabetes] Onset: 03-01-2022 Resolved: 12-20-2024 08-26-2023 Episodic Diseases of white blood cells (7 sources) Lymphocytopenia; Translations: [Lymphocytopenia] Onset: 04-12-2025 04-12-2025 Chronic Disorders of lipid metabolism (20 sources) Hyperlipidemia, unspecified; Translations: [Hyperlipidemia] Onset: 06-28-2022 2023 Chronic Essential hypertension (20 sources) Essential (primary) hypertension; Translations: [Hypertensive disorder] Onset: 06-25-2022 Chronic Genitourinary symptoms and ill-defined conditions (8 sources) Sensation as if bladder still full; [...] sources) Long-term current use of anticoagulant; Translations: [emt intermediate (current) use of anticoagulants] Onset: 2023 Episodic Other male genital disorders (20 sources) Male erectile dysfunction, unspecified; Translations: [Erectile dysfunction] Onset: 2023 Chronic Other male genital disorders (20 sources) Swelling of left half of scrotum; Translations: [Other specified disorders of the male genital organs] Onset: 12-13-2024 12-13-2024 Episodic Other male genital disorders (20 sources) Adult hydrocele; Translations: [Hydrocele, unspecified] Onset: 12-17-2024 12-17-2024 Episodic Other male genital disorders (2 sources) Hydrocele of testis; Translations: [Hydrocele, unspecified] Onset: 01-25-2025 Episodic Other male genital disorders (3 sources) Disorder of male genital organ 01-03-2025 Episodic Other nervous system disorders (5 sources) Chronic pain; Translations: [Other chronic pain] 07-14-2024 Chronic Other non-traumatic joint disorders (2 sources) Arthritis of left knee 06-23-2024 Chronic Other non-traumatic joint disorders (20 sources) Pain in left knee; Translations: [Pain in joint, lower leg] Onset: 02-25-2024 02-25-2024 Episodic Other non-traumatic joint disorders (20 sources) Chronic pain of left upper limb; Translations: [Pain in left shoulder] Onset: 02-25-2024 02-25-2024 Episodic Other nutritional; endocrine; and metabolic disorders (2 [...] Da te Episodic/Chronic Deficiency and other anemia (1 source) Anemia; Translations: [Anemia, unspecified] 09-03-2023 Episodic Nonspecific chest pain (1 source) Precordial pain; Translations: [Precordial pain] Onset: 12-10-2019 12-10-2019 Episodic Other male genital disorders (20 sources) Swelling of testicle; Translations: [Other specified disorders of the male genital organs] Onset: 12-13-2024 Resolved: 12-13-2024 12-13-2024 Episodic Results Test Name Value Interpretation Reference Range Facility Basophils Auto (Bld) [#/Vol] Ordered By: Clinton Marr on 06-03-2025 Basophils (Bld) [#/Vol] 0.1 10 3/uL 0.0-0.1 [facility] Basophils/100 WBC Auto (Bld) Ordered By: Clinton Marr on 06-03-2025 Basophils/100 WBC (Bld) 0.8 % 0.2-2.0 [facility] Eosinophils/100 WBC Auto (Bl d)Ordered By: Clinton Marr on 06-03-2025 Eosinophils/100 WBC (Bld) 2.7 % 0.9-7.0 [facility] Erythrocyte distribution wid th Auto (RBC) [Ratio]Ordered By: Clinton Marr on 06-03-2025 Erythrocyte distribution width (RBC) [Ratio] 14.0 % 11.0-15.0 [facility] Glomerular filtration rate ( GFR) estimation in non- AmericanOrdered By: Clinton Marr on 06-03-2025 GFR/1.73 sq M.predicted among non-blacks MDRD (S/P/Bld) [Vol rate/Area] mL/min/{1.73_m2} >=60 mL/min/1.73m 2 [facility] Hematocrit Auto (Bld) [Volum e fraction]Ordered By: Clinton Marr on 06-03-2025 Hematocrit (Bld) [Volume fraction] 40.9 % Low 42.0-54.0 [facility] Hemoglobin [Mass/volume] in BloodOrdered By: Clinton Marr on 06-03-2025 Hemoglobin (Bld) [Mass/Vol] 13.8 g/dL Low 14.0-18.0 [facility] Laboratory - Chemistry and C hemistry - challengeOrdered By: Clinton Marr on 06-03-2025 Calcium [Mass/Vol] 9.2 mg/dL 8.5-10.1 [facility] Chloride [Moles/Vol] 105 mmol/L 98-107 [facility] CO2 [Moles/Vol] 26.9 mmol/L 21.0-32.0 [facility] Creatinine [Mass/Vol] 0.83 mg/dL 0.70-1.30 [facility] GFR/1.73 sq M.predicted MDRD (S/P/Bld) [Vol rate/Area] mL/min/{1.73_m2} >=60 mL/min/1.73m 2 [facility] Glucose [Mass/Vol] 85 mg/dL 74-106 [facility] Potassium [Moles/Vol] 3.6 mmol/L 3.5-5.1 [facility] Sodium [Moles/Vol] 138 mmol/L 136-145 [facility] Urea nitrogen [Mass/Vol] 24.0 mg/dL High 7.0-18.0 [facility] Urea nitrogen/Creatinine [Mass ratio] 28.9 mg/mg [facility] Laboratory - Hematology and Cell countsOrdered By: Clinton Marr on 06-03-2025 Immature granulocytes/100 WBC (Bld) 0.2 % 0.0-0.5 [facility] Leukocytes [#/volume] correc jackie for nucleated erythrocytes in Blood by Automated counOrdered By: Clinton Marr on 06-03-2025 WBC corrected for nucl RBC Auto (Bld) [#/Vol] 10.8 10 3/uL 4.0-11.0 [facility] Lymphocytes Auto (Bld) [#/Vo l]Ordered By: Clinton Marr on 06-03-2025 Lymphocytes (Bld) [#/Vol] 1.4 10 3/uL 1.2-3.8 [facility] Lymphocytes/100 WBC Auto (Bl d)Ordered By: Clinton Marr on 06-03-2025 Lymphocytes/100 WBC (Bld) 13.1 % Low 20.5-60.0 [facility] MCH Auto (RBC) [Entitic mass ]Ordered By: Clinton Marr on 06-03-2025 MCH (RBC) [Entitic mass] 29.6 pg 25.9-34.0 [facility] MCHC Auto (RBC) [Mass/Vol]Or dered By: Clinton Marr on 06-03-2025 MCHC (RBC) [Mass/Vol] 33.7 g/dL 29.9-35.2 [facility] MCV Auto (RBC) [Entitic vol] Ordered By: Clinton Marr on 06-03-2025 MCV (RBC) [Entitic vol] 87.6 fL 80.0-94.0 [facility] Monocytes Auto (Bld) [#/Vol] Ordered By: Clinton Marr on 06-03-2025 Monocytes (Bld) [#/Vol] 0.8 10 3/uL 0.3-0.8 [facility] Monocytes/100 WBC Auto (Bld) Ordered By: Clinton Marr on 06-03-2025 Monocytes/100 WBC (Bld) 7.8 % 1.7-12.0 [facility] Neutrophils Auto (Bld) [#/Vo l]Ordered By: Clinton Marr on 06-03-2025 Neutrophils (Bld) [#/Vol] 8.1 10 3/uL High 1.4-6.5 [facility] Neutrophils/100 WBC Auto (Bl d)Ordered By: Clinton Marr on 06-03-2025 Neutrophils/100 WBC (Bld) 75.4 % High 43.0-75.0 [facility] No Panel InformationOrdered By: Clinton Marr on 06-03-2025 Troponin I High Sensitivity 8.0 pg/mL 4.0-76.1 [facility] Comment on above: CUT-OFF POINTS HAVE BEEN ESTABLISHED BASED ON THE FOURTHUNIVERSAL DEFINITION OF MYOCARDIAL INFARCTION. THE UPPERREFERENCE LIMIT (URL) OF TROPONIN, DEFINED THE 99THPERCENTILE OF cTnI DISTRIBUTION IN A REFERENCE POPULATION,HAS BEEN CONFIRMED THE DECISION THRESHOLD FOR MIDIAGNOSIS.99TH PERCENTILE = 76.2 PG/MLNOTE: HIGH-SENSITIVITY TROPONIN ASSAY IS NOT INTENDED TO BEUSED IN ISOLATION BUT SHOULD BE INTERPRETED IN CONJUNCTIONWITH OTHER DIAGNOSTIC AND CLINICAL INFORMATION. Eosinophils # (Auto) 0.3 10 3/uL 0.0-0.7 [facility] Immature Granulocyte # (Auto) 0.02 10 3/uL 0.00-0.03 [facility] Platelet mean volume Auto (B ld) [Entitic vol]Ordered By: Clinton Marr on 06-03-2025 Platelet mean volume (Bld) [Entitic vol] 10.0 fL 9.5-13.5 [facility] Platelets Auto (Bld) [#/Vol] Ordered By: Clinton Marr on 06-03-2025 Platelets (Bld) [#/Vol] 285 10 3/uL 150-450 [facility] RBC Auto (Bld) [#/Vol]Ordere d By: Clinton Marr on 06-03-2025 RBC (Bld) [#/Vol] 4.67 10 6/uL Low 4.70-6.10 [facility] Serum or plasma anion gap de terminationOrdered By: Clinton Marr on 06-03-2025 Anion gap [Moles/Vol] 9.7 mmol/L [facility] Ambulatory Visit Summaryon 0 05-13-2025 Ambulatory Visit [...] Drew HIRSCH MD Where: [facility] [address] [place] [address]- Friday2025 8:30 AM EST With: Drew HIRSCH MD Where: [facility] [address], [place] [id number]- You Need to Schedule the Following Appointments Follow Up with Drew HIRSCH MD, URL When: Comments: 6 mos Where: [address] [place] [address] Medications What How Much When Why Instructions [...] these instructions at home: Medicines ??? Take cdct-ltw-vsyrtcp and prescription medicines only as told by your health care provider. ??? Ask your health care provider if the medicine prescribed to you: ? Requires you to avoid driving or using machinery. ? Can cause constipation. You may need to take these actions to prevent or treat constipation: ? Drink enough fluid to keep your urine pale yellow. ? Take iwix-rgt-oynejmq or prescription medicines. ? Eat foods that are high in fiber, such as beans, whole grains, and fresh fruits and vegetables. ? Limit foods that are high in fat and processed sugars, such as fried or sweet foods. Bathing ??? Do not take baths, swim, or use a hot tub until your health care provider approves. A (more content not included)... Normal [facility] Urology Office/Clinic Noteon 05-13-2025 Urology [...] changes -Restart Flomax bid 3. Anticoagulated (Z79.01: emt intermediate (current) use of anticoagulants) Plavix. [1] Follow-up With When Contact Information BETO WEAV[employer], [employer], URL [address] [place] [address] [place] [address] Additional Instructions: 6 mos Patient Education Hydrocelectomy, Adult, Care After I, Sherry Fitzpatrick, personally scribed for Dr. Hirsch on 05/13/2025 09:35:50. . Documentation recorded by the scribeSherry, accurately reflects the services(s) I performed and [...] virus vaccine (more content not included)... Normal [facility] Comment on above: Result Comment: Elec tronically Signed By: Drew HIRSCH MD.br\Date and Time Signed: 05/13/25 09:40 EDT\.br\Electronically Co-Signed By: Sherry Fitzpatrickbr\Date and Time Co-Signed: 05/13/25 09:36 EDT Benedicto 04-14-2025 L -- ---- Specimen: [id number] Received: 04/14/25 Status: EVELINE Jonny Num: [id number] Spec Type: Surgical Subm Dr: Drew Hirsch MD Tissues: A Hydrocele Sac (LEFT HYDROCELE SAC) Procedures: Anneliese VELEZ/[place] L2 ---- Age/ Patient Sex Location Account Attending Physician ---- Marti Morgan/M LABELL [id number] Drew Hirsch MD ---- SPEC NUM: [id number] RECD: 04/14/25 STATUS: EVELINE WEBBJannie NUM: [id number] ARIELA: 04/14/[address]: Drew Hirsch MD ENTERED: 04/14/[address]: Odette Case SPEC TYPE: Surgical DEPT: [facility] ENTERED BY: [id number] RECV BY: [id number] ORDERED: HE, Gross/Micro L2 ORDERED: ROSIE Gross/Micro L2 Pathological Diagnosis Left hydrocele sac, [...] to pink, glistening, and uniform cut surfaces. Washing Machine Loader sections are submitted in a single cassette. (1, , [id number] A) Microscopic Description Microscopic examination is performed. CPT Codes 85943 ---- ---- Specimen: [id number] Received: 04/14/25 Status: EVELINE Fuller Num: [id number] Spec Type: Surgical Subm Dr: Drew Hirsch MD Tissues: A Hydrocele Sac (LEFT HYDROCELE SAC) Procedures: Anneliese VELEZ/Micro L2 ---- Patient: Marti Morgan [id number] (Continued) ---- Signed (signature on file) Luis M Ruth MD 04/18/25 1354 Normal [facility] HbA1c (Bld) [Mass fraction]o n 04-12-2025 Interpretation and review of laboratory results Abnormal [facility] Laboratory - Hematology and Cell countson 04-12-2025 HbA1c (Bld) [Mass fraction] 6.3 % [facility] Healthcare Provider Letteron 04-11-2025 Provider Letter Provider Letter April 11, 2025 MARTI MORGAN [address] [place] [address] : 1955 To Whom It May Concern, Please excuse above patient from work. Date of Illness: From: 04/14/25 To: 04/24/25 May Return to Work On: 04/25/25 Restrictions: Patient may return to work 04/25/25 with no heavy lifting over 20 pounds x 3 weeks until 05/16/25 Comments: Patient is having a surgical procedure on 04/14/25 Sincerely, Drew Hirsch M.D., F.A.C.S. [facility] [address] [place] [phone] , option #3 Normal [facility] Documentationon 03-29-2025 Documentation [id number] Kali Morgan 1955 M Date Provider Department Center 03/29/2025 [id number] MONTIEL [facility] CARD [facility] Family History Problem Relation Age of Onset Heart attack Father Coronary artery disease Father Other Father Coronary artery disease Maternal Grandfather Other Maternal Grandfather Family Status - Relation Status Age at Father Maternal Grandfather Normal [facility] Orders Onlyon 03-28-2025 Orders Only [id number] Kali Morgan 1955 M Date Provider Department Center 03/28/2025 [id number], HISTORICAL [facility] Manpreet [facility] Family History Problem Relation Age of Onset Heart attack Father Coronary artery disease Father Other Father Coronary artery disease Maternal Grandfather Other Maternal Grandfather Family Status - Relation Status Age at Father Maternal Grandfather Normal [facility] CA ECHO DOPPLER COMPLETEon 0 03-26-2025 [facility] [address] [place] [address] Cardiology Report Signed Patient: MARTI MORGAN MR#: [id number] : 1955 Acct:[id number] Age/Sex: 69 / M ADM Date: 03/24/25 Loc: CARD Attending Dr: Misael Reyes M.D. Ordering Physician: Misael Reyes M.D. Date of Service: 03/24/25 Procedure(s): CA echo doppler complete Accession Number(s): [id number] cc: Sophie Delarosa SENIOR ELECTRICAL PROJECT MANAGER; Misael Reyes M.D. Patient Name: MARTI MORGAN MR#: [id number] : 1955 Exam Date: 03/24/2025 Ordering Doctor: [...] ml Dictated by: Misael Reyes MD on (more content not included)... [facility] Radiology, Radiologist, MD - 03/26/2025 [place] [address] Cardiology Report Signed Patient: MARTI MORGAN MR#: [id number] : 1955 Acct:[id number] Age/Sex: 69 / M ADM Date: 03/24/25 Loc: CARD Attending Dr: Misael Reyes M.D. Ordering Physician: Misael Reyes M.D. Date of Service: 03/24/25 Procedure(s): CA echo doppler complete Accession Number(s): [id number] cc: Sophie Delarosa SENIOR ELECTRICAL PROJECT MANAGER; Misael Reyes M.D. Patient Name: MARTI MORGAN MR#: [id number] : 1955 Exam Date: 03/24/2025 Ordering Doctor: [...] M.D. Signed By: 03/26/251815 DD/ 14 TD/TT: Email Marketing Specialist: [facility] Radiology Study observation (narrative) [facility] CA ECHO DOPPLER COMPLETEOrde red By: Radiologist Radiology on 03-26-2025 [facility] [employer] Work Phone: Office Visiton 03-18-2025 Follow-up visit [id number] Kali Morgan 1955 [facility] Provider Department Center 03/18/2025 [id number] REYES [facility] Manpreet [facility] Family History Problem Relation Age of Onset Heart attack Father Coronary artery disease Father Other Father Coronary artery disease Maternal Grandfather Other Maternal Grandfather Family Status - Relation Status Age at Father Maternal Grandfather Level of Service:51310 [place] OFFICE/OUTPATIENT ESTABLISHED MOD MDM 30 MIN Reason for Visit and Comments: Abnormal ECG [293] - Performed a few days ago, with labs Pre-op Exam [444295] - Had stress test and echo at [facility] in 2021 s/p Covid-19 infection. Patient denies chest pain, SOB, and palpitations. He will be scheduled for hydrocele procedure with Dr. Hirsch. 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 Normal [facility] Orders Onlyon 03-18-2025 Orders Only [id number] Kali Morgan 1955 M Date Provider Department Center 03/18/2025 [id number], HISTORICAL [facility] Family History Problem Relation Age of Onset Heart attack Father Coronary artery disease Father Other Father Coronary artery disease Maternal Grandfather Other Maternal Grandfather Family Status - Relation Status Age at Father Maternal Grandfather Normal [facility] ALL BASIC METABOLIC PANELon 03-14-2025 Anion gap [Moles/Vol] 11.7 mmol/L [facility] Healthcare Calcium [Mass/Vol] 9.1 mg/dL 8.5 - 10. 1 mg/dL [facility] Chloride [Moles/Vol] 106 mmol/L 98 - 10 7 mmol/L [facility] CO2 [Moles/Vol] 30.7 mmol/L 21.0 - 32.0 mmol/L [facility] Creatinine [Mass/Vol] 0.69 mg/dL Low 0.70 - 1.30 mg/dL [facility] GFR/1.73 sq M.predicted CKD-EPI (S/P/Bld) [Vol rate/Area] >60 >=60 mL/min/1.73m 2 [facility] Glucose [Mass/Vol] 127 mg/dL High 74 - 106 mg/dL [facility] Interpretation and review of laboratory results Abnormal [facility] Potassium [Moles/Vol] 4.4 mmol/L 3.5 - 5.1 mmol/L [facility] Sodium [Moles/Vol] 144 mmol/L 136 - 145 mmol/L [facility] TBH EGFR-NON AF LUXEMBOURGER >60 >=60 mL/min/1.73m 2 [facility] Urea nitrogen [Mass/Vol] 18 mg/dL 7.0 - 18.0 mg/dL [facility] Urea nitrogen/Creatinine [Mass ratio] 26.1 mg/mg [facility] ECG 12-LEADon 03-14-2025 [place] [address] Electrocardiograph Report Signed Patient: MARTI MORGAN MR#: [id number] : 1955 Acct:[id number] Age/Sex: 69 / M ADM Date: 03/14/25 Loc: [facility] Attending Dr: Drew Hirsch M.D. Ordering Physician: Drew Hirsch M.D. 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 Measurements Intervals [address] Rate: 76 P: 153 [place]: 195 QRS: -21 QRSD: 115 T: 150 [...] MIKE Signed By: 03/14/252030 DD/ 8 TD/TT: Email Marketing Specialist: [facility] Radiology, Radiologist, MD - 03/14/2025 [place] [address] Electrocardiograph Report Signed Patient: MARTI MORGAN MR#: [id number] : 1955 Acct:[id number] Age/Sex: 69 / M ADM Date: 03/14/25 Loc: PST Attending Dr: Drew Hirsch M.D. Ordering Physician: Drew Hirsch M.D. 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 Measurements Intervals [place] Rate: 76 P: 153 OK: 195 QRS: -21 QRSD: 115 T: 150 [...] MIKE Signed By: 03/14/252030 DD/ 8 TD/TT: Email Marketing Specialist: [facility] [employer] Radiology Study observation (narrative) [facility] ECG 12-LEADOrdered By: Samatoat Radiology on 03-14-2025 [facility] [employer] Work Phone: Ambulatory Visit Summaryon 0 03-07-2025 [...] Drew HIRSCH MD Where: [facility] [address] [place] [address] [place] [address]- You Need to Schedule the Following Appointments Follow Up with Drew HIRSCH MD, NAYANA When: Comments: westley Hays hydrocelectomy Where: [facility] [address], [place] [address]- [phone] Medications What How Much When Why Instructions [...] these instructions at home: Medicines ??? Take zsoy-mzy-grzmflq and prescription medicines only as told by your health care provider. ??? Ask your health care provider if the medicine prescribed to you: ? Requires you to avoid driving or using machinery. ? Can cause constipation. You may need to take these actions to prevent or treat constipation: ? Drink enough fluid to keep your urine pale yellow. ? Take iolv-vuj-eucpzqa or prescription medicines. ? Eat foods that [...] bathe. Incis (more content not included)... [facility] Ambulatory Visit Summary Ambulatory Visit Summary MARTI [...] Drew HIRSCH MD Where: [facility] [address] [facility] [place] [address]- You Need to Schedule the Following Appointments Follow Up with Drew HIRSCH MD, URL When: Comments: westley L hydrocelectomy Where: [facility] [address], [facility] [place] [phone] Medications What How Much When Why Instructions [...] these instructions at home: Medicines ??? Take kbet-pyi-cqgmycm and prescription medicines only as told by your health care provider. ??? Ask your health care provider if the medicine prescribed to you: ? Requires you to avoid driving or using machinery. ? Can cause constipation. You may need to take these actions to prevent or treat constipation: ? Drink enough fluid to keep your urine pale yellow. ? Take mlcz-zmd-zqvvkcv or prescription medicines. ? Eat foods that [...] bathe. Incis (more content not included)... [facility] Provider Letteron 03-07-2025 Provider Letter Provider Letter March 07, [address] [id number] : 1955 To Whom It May Concern, Please excuse above patient from work. Date of Illness: From: 03/17/25 To: 03/24/2025 May Return to Work On:03/25/25 Restrictions: No work 03/17/25- 03/24/25 Comments: Patient is having surgery on 03/17/25. No work 03/17/25- 03/24/25. He may return to work 03/25/25 with no heavy lifting over 10 lbs x 1 week. Sincerely, [facility] Urology Office/Clinic Noteon 03-07-2025 Urology Office/Clinic Note [...] size. Interferes w urination at times. More bothersome/uncomfortab le, within the last 3 wks. Wishes to [...] bid. Cont wo changes. 3. Anticoagulated (Z79.01: shelter (current) use of anticoagulants) Plavix. Follow-up With When Contact Information BETO WEAVER, Drew Painting, URL [facility] [address], [place] [address]- [phone] Additional Instructions: sched L hydrocelectomy Patient Education [...] 06/22/2023 Recorded SARS-CoV-2 (more content not included)... [facility] Comment on above: Result Comment: Elec tronically Signed By: Drew HIRSCH MD\.br\Date and Time Signed: 03/07/25 15:24 EDT\.br\Electronically Co-Signed By: Sherry Fitzpatrick\.br\Date and Time Co-Signed: 03/07/25 15:22 EDT [place] [address] Ultrasound Report Signed Patient: MARTI MORGAN MR#: [id number] : 1955 Acct:[id number] Age/Sex: 69 / M ADM Date: 02/09/25 Loc: US Attending Dr: Drew Hirsch M.D. Ordering Physician: Drew Hirsch M.D. Date of Service: 02/09/25 Procedure(s): US scrotum Accession Number(s): [id number] cc: Sophie Delarosa NP; Drew Hirsch M.D. [address] [address] Patient Name: MARTI MORGAN MRN: [id number] date: 1955 Sex: M Assigned Patient Location: US Current Patient Location: US Accession/Order Number: [id number] Exam Date: 02/09/2025 18:40 Report Date: 02/09/2025 [...] Rudolph M.D. 02/09/2025 6:42 PM Dictation Location: [place] [address] Electronically authenticated by: [id number] Y Date: 02/09/2025 18:42 Dictated By: Clinton Rudolph D.O. Signed By: 02/10/25 0950 DD/ 1842 TD/TT: Email Marketing Specialist: [facility] Radiology, Radiologist, - 02/10/2025 [place] [address] Ultrasound Report Signed Patient: MARTI MORGAN MR#: [id number] : 1955 Acct:[id number] Age/Sex: 69 / M ADM Date: 02/09/25 Loc: US Attending Dr: Drew Hirsch M.D. Ordering Physician: Drew Hirsch M.D. Date of Service: 02/09/25 Procedure(s): US scrotum Accession Number(s): [id number] cc: Spohie Delarosa NP; Drew Hirsch M.D. [address] [address] Patient Name: MARTI MORGAN MRN: [facility]:[id number] date: 1955 Sex: M Assigned Patient Location: US Current Patient Location: US Accession/Order Number: [id number] Exam Date: 02/09/2025 18:40 Report Date: 02/09/2025 [...] Rudolph M.D. 02/09/2025 6:42 PM Dictation Location: [place] [address] Electronically authenticated by: [id number] Y Date: 02/09/2025 18:42 Dictated By: Clinton Rudolph D.O. Signed By: 02/10/25 0950 DD/ 1842 TD/TT: Email Marketing Specialist: [facility] US Scrotum and testicleOrder ed By: Radiologist Radiology on 02-10-2025 [facility] Work Phone: US Scrotum and testicleon Radiology Study observation (narrative) [facility] Ambulatory Visit Summaryon 0 01-25-2025 Ambulatory Visit [...] Drew HIRSCH MD Where: [facility] [address] [place] [address]- You Need to Schedule the Following Appointments Follow Up with Drew HIRSCH MD, URL When: Where: [facility] [address], [place] [address]- Medications What How Much When Why Instructions [...] older t (more content not included)... [facility] Urology Office/Clinic Noteon 01-25-2025 Urology Office/Clinic Note [...] or torsion. -Cont monitoring 4. Anticoagulated (Z79.01: shelter (current) use of anticoagulants) Plavix. Follow-up With When Contact Information BETO WEAVER, Drew Painting, URL [facility] [address], [place] [address]- Additional Instructions: 5 mos Patient Education Benign [...] (COVID-19) mRNAMUL.ORD! (more content not included)... [facility] Comment on above: Result Comment: Elec tronically Signed By: BETO WEAVER, Drew Painting\.br\Date and Time Signed: 01/25/25 15:37 EDT\.br\Electronically Co-Signed By: Dunia Santiago\.br\Date and Time Co-Signed: 01/25/25 15:35 EDT Ambulatory Visit Summaryon 0 01-03-2025 Ambulatory Visit Summary Ambulatory Visit Summary MARTI MORGAN :1955 Visit Date:01/03/2025 Ambulatory Visit Instructions Your Diagnosis BPH with urinary obstruction Feeling of incomplete bladder emptying Hydrocele Anticoagulated Your Care Team Attending Physician - BETO WEAVER, Drew Painting Primary Care Physician - BREANNA WEAVER, Referring [...] Follow Up with BETO WEAVER, Drew Painting, URSaúl When: Where: [facility] [address] , [place] [phone] Medications What How Much When Why Instructions New ciprofloxacin (Cipro 500 mg Tab) 1 Tablets By Mouth Every day take one tab day before procedure and one tab after procedure Pickup at [facility] 9320 New dutasteride (dutasteride 0.5 mg Cap) 1 Capsules By Mouth Every day BPH with urinary obstruction Refills: 3 Pickup at [facility] 1429 Unchanged tamsulosin (tamsulosin 0.4 mg Cap) [...] physician if questions or concerns Pharmacy Information [facility] 1429: [address] [place], [place] [id number] [phone] Allergies No Known Medication Allergies Problems Ongoing [...] including vitamins, herbs, eye drops, creams, and lfvo-lpd-cdhplou medicines. ??? Any problems you or family members have had with anesthetic medicines. ??? Any blood disorders you have. ??? (more content not included)... [facility] ALL CBC WITH AUTO DIFFon BASOPHILS ABSOLUTE AUTO 0.[address] [facility] Basophils/100 WBC (Bld) 0.8 % 0.2 - 2.0 % [facility] Eosinophils/100 WBC (Bld) 4.4 % 0.9 - 7.0 % [facility] Erythrocyte distribution width (RBC) [Ratio] 13.6 % 11.0 - 15.0 % [facility] Hematocrit (Bld) [Volume fraction] 41.9 % Low 42.0 - 54.0 % [facility] Hemoglobin (Bld) [Mass/Vol] 14 g/dL 14.0 - 18.0 g/dL [facility] IMMATURE GRANULOCYTES ABS AUTO 0.02 [facility] Immature granulocytes/100 WBC (Bld) 0.2 % 0.0 - 0.5 % [facility] Interpretation and review of laboratory results Abnormal [facility] LYMPHOCYTES ABSOLUTE AUTO 1.2 [facility] Lymphocytes/100 WBC (Bld) 14.4 % Low 20.5 - 60.0 % [facility] MCH (RBC) [Entitic mass] 29.4 pg 25.9 - 34.0 pg [facility] MCHC (RBC) [Mass/Vol] 33.4 g/dL 29.9 - 35.2 g/dL [facility] MCV (RBC) [Entitic vol] 87.8 fL 80.0 - 94.0 fL [facility] MONOCYTES ABSOLUTE AUTO 0.[address] [facility] Monocytes/100 WBC (Bld) 7.2 % 1.7 - 12.0 % [facility] NEUTROPHILS ABSOLUTE AUTO 6.1 [facility] Neutrophils/100 WBC (Bld) 73 % 43.0 - 75.0 % [facility] Platelet mean volume (Bld) [Entitic vol] 9.4 fL Low 9.5 - 13.5 [facility] PLT 279 [facility] RBC 4.77 [facility] WBC 8.4 [facility] US Scrotum and testicleon [place] [id number] Ultrasound Report Signed Patient: MARTI MORGAN MR#: [id number] : 1955 Acct:[id number] Age/Sex: 69 / M ADM Date: 12/14/24 Loc: US Attending Dr: Sophie Delarosa NP Ordering Physician: Sophie Delarosa NP Date of Service: 12/14/24 Procedure(s): US scrotum Accession Number(s): [id number] cc: Sophie Delarosa NP [address] [address] Patient Name: MARTI MORGAN MRN: [facility]:[id number] date: 1955 Sex: M Assigned Patient Location: Current Patient Location: Accession/Order Number: [id number] Exam Date: 12/14/2024 20:49 Report Date: 12/14/2024 [...] M.D.12/14/2024 8:59 PM Dictation Location: [place] [address] Electronically authenticated by: [id number] Y Date: 12/14/2024 20:59 Dictated By: Rosemary Em M.D. Signed By: 12/14/242101 DD/ 58 TD/TT: Email Marketing Specialist: [facility] Radiology, Radiologist, MD - 12/14/2024 [place] [address] Ultrasound Report Signed Patient: MARTI MORGAN MR#: [id number] : 1955 Acct:[id number] Age/Sex: 69 / M ADM Date: 12/14/24 Loc: US Attending Dr: Sophie Delarosa NP Ordering Physician: Sophie Delarosa NP Date of Service: 12/14/24 Procedure(s): US scrotum Accession Number(s): [id number] cc: Sophie Delarosa NP [place] [id number] Patient Name: MARTI MORGAN MRN: [facility]:[id number] date: 1955 Sex: M Assigned Patient Location: US Current Patient Location: US Accession/Order Number: [id number] Exam Date: 12/14/2024 20:49 Report Date: 12/14/2024 [...] M.D.12/14/2024 8:59 PM Dictation Location: [place] [address] Electronically authenticated by: [id number] Y Date: 12/14/2024 20:59 Dictated By: Rosemary Em M.D. Signed By: 12/14/242101 DD/ 58 TD/TT: Email Marketing Specialist: [facility] Radiology Study observation (narrative) [facility] US Scrotum and testicleOrder ed By: Radiologist Radiology on 12-14-2024 [facility] Work Phone: No Panel Informationon 06-23 Barbara [...] discussed. Consent was given by the patient. [facility] CBC AUTO DIFFon 06-25-2022 BASO # 0.1 103/ul Normal 0.0-0.1 [facility] Comment on above: Performed By: #### C BC #### [facility] [address] [place] [address] [address] Renee Prado Basophils/100 WBC (Bld) 0.8 % Normal 0.2-2.0 [facility] Comment on above: Performed By: #### C BC #### [facility] [address] [place] [address] Dr. Renee Prado EO # 0.3 103/ul Normal 0.0-0.7 [facility] Comment on above: Performed By: #### C BC #### [facility] [address] [place] [address] Dr. Renee Prado Eosinophils/100 WBC (Bld) 3.3 % Normal 0.9-7.0 [facility] Comment on above: Performed By: #### C BC #### [facility] [address] [place] [address] Dr. Renee Prado Erythrocyte distribution width (RBC) [Ratio] 13.9 % Normal 11.0-15.0 [facility] Comment on above: Performed By: #### C BC #### [facility] [address] [place] [address] Dr. Renee Prado Hematocrit (Bld) [Volume fraction] 41.9 % Critically low 42.0-54.0 [facility] Comment on above: Performed By: #### C BC #### [facility] [address] [place] [address] Dr. Renee Prado Hemoglobin (Bld) [Mass/Vol] 13.8 g/dL Critically low 14.0-18.0 [facility] Comment on above: Performed By: #### C BC #### [facility] [address] [place] [address] Dr. Renee Prado IG # 0.02 10e3/ul Normal 0.00-0.03 [facility] Comment on above: Performed By: #### C BC #### [facility] [address] [place] [address] Dr. Renee Prado IG % 0.2 % Normal 0.0-0.5 [facility] Comment on above: Performed By: #### C BC #### [facility] [address] [place] [address] Dr. Renee Prado LYMPH # 1.8 103/ul Normal 1.2-3.8 [facility] Comment on above: Performed By: #### C BC #### [facility] [address] [place] [address] Dr. Renee Prado Lymphocytes/100 WBC (Bld) 19.9 % Critically low 20.5-60.0 [facility] Comment on above: Performed By: #### C BC #### [facility] [address] [place] [address] Dr. Renee Prado MANUAL DIFF REQ NO Normal [facility] Comment on above: Performed By: #### C BC #### [facility] [address] [place] [address] Dr. Renee Prado MCH (RBC) [Entitic mass] 28.9 pg Normal 25.9-34.0 [facility] Comment on above: Performed By: #### C BC #### [facility] [address] [place] [address] Dr. Renee Prado MCHC (RBC) [Mass/Vol] 32.9 g/dL Normal 29.9-35.2 [facility] Comment on above: Performed By: #### C BC #### [facility] [address] [place] [address] Dr. Renee Prado MCV (RBC) [Entitic vol] 87.7 fL Normal 80.0-94.0 [facility] Comment on above: Performed By: #### C BC #### [facility] [address] [place] [address] Dr. Renee Prado MONO # 0.6 103/ul Normal 0.3-0.8 [facility] Comment on above: Performed By: #### C BC #### [facility] [address] [place] [address] Dr. Renee Prado Monocytes/100 WBC (Bld) 6.8 % Normal 1.7-12.0 [facility] Comment on above: Performed By: #### C BC #### [facility] [address] [place] [address] Dr. Renee Prado NEUT # 6.1 103/ul Normal 1.4-6.5 [facility] Comment on above: Performed By: #### C BC #### [facility] [address] [place], [place] [id number] Dr. Renee Prado Neutrophils/100 WBC (Bld) 69.0 % Normal 43.0-75.0 [facility] Comment on above: Performed By: #### C BC #### [facility] [address] [place] [address] Dr. Renee Prado Platelet mean volume (Bld) [Entitic vol] 9.4 fL Critically low 9.5-13.5 [facility] Comment on above: Performed By: #### C BC #### [facility] [address] [place] [address] Dr. Renee Prado PLT 269 103/ul Normal 150-450 [facility] Comment on above: Performed By: #### C BC #### [facility] [address] [place] [address] Dr. Renee Prado RBC 4.78 106/ul Normal 4.70-6.10 [facility] Comment on above: Performed By: #### C BC #### [facility] [address] [place] [address] Dr. Renee Prado WBC 8.9 103/ul Normal 4.0-11.0 [facility] Comment on above: Performed By: #### C BC #### [facility] [address] [place] [address] Dr. Renee Prado CREATININE URINEon 2 URINE CREAT 51.03 mg/dL Normal 20.00-300.00 [facility] Comment on above: Performed By: #### C REAU #### [facility] [address] [place] [address] Dr. Renee Prado GLYCOHEMOGLOBIN A1Con 2021 ADA RECOMMENDATION SEE BELOW Normal [facility] Comment on above: Result Comment: ADA RECOMMENDED LIMIT 4.0 - 6.0 ADA THERAPEUTIC TARGET < 7.0 ACTION SUGGESTED > 7.0 Performed By: #### A 1C #### [facility] [address] [place] [address] Dr. Renee Prado Glucose [Mass/Vol] 128 mg/dL Normal [facility] Comment on above: Performed By: #### A 1C #### [facility] [address] [place] [address] [address] Renee Prado HbA1c (Bld) [Mass fraction] 6.1 % Normal 4.5-6.2 [facility] Comment on above: Performed By: #### A 1C #### [facility] [address] [place] [address] [address] Renee Prado LIPID PROFILEon 06-25-2022 CHOL-HDL RATIO NORM SEE BELOW Normal [facility] Comment on above: Result Comment: 3.3 - 4.4 LOW RISK 4.4 - 7.1 AVERAGE RISK 7.1 - 11.0 MODERATE RISK >11.0 HIGH RISK Performed By: #### C MP, LIPID #### [facility] [address] [place] [address] Dr. Renee Prado Cholesterol [Mass/Vol] 158 mg/dL Normal <=200 Th [facility] Comment on above: Performed By: #### C MP, LIPID #### [facility] [address] [place] [address] Dr. Renee Prado Cholesterol in HDL [Mass/Vol] 51 mg/dL Normal 40-60 [facility] Comment on above: Performed By: #### C MP, LIPID #### [facility] [address] [place] [address] Dr. Renee Prado Cholesterol in LDL [Mass/Vol] 92.6 mg/dL Normal [facility] Comment on above: Performed By: #### C MP, LIPID #### [facility] [address] [place] [address] Dr. Renee Prado Cholesterol.total/Shannan sterol in HDL [Mass ratio] 3.1 {ratio} Normal [facility] Comment on above: Performed By: #### C MP, LIPID #### [facility] [address] [place] [address] Dr. Renee Prado HDL NORMAL > or = 60 mg/dl - LO W CARDIOVASCULAR RISK <40 mg/dl - HIGH CARDIOVASCULAR RISK Normal [facility] Comment on above: Performed By: #### C MP, LIPID #### [facility] [address] [place] [address] Dr. Renee Prado LDL CALC NORMAL SEE BELOW Normal [facility] Comment on above: Result Comment: <100 mg/dl OPTIMAL 100 - 129 mg/dl NEAR OR ABOVE OPTIMAL 130 - 159 mg/dl BORDERLINE HIGH 160 - 189 mg/dl HIGH >190 mg/dl VERY HIGH Performed By: #### C MP, LIPID #### [facility] [address] [place] [address] [address] Renee Prado Triglyceride [Mass/Vol] 72 mg/dL Normal <=150 [facility] Comment on above: Performed By: #### C MP, LIPID #### [facility] [address] [place] [address] [address] Renee Prado VLDL CALC 14.4 mg/dL Normal [facility] Comment on above: Performed By: #### C MP, LIPID #### [facility] [address] [place] [address] [address] Renee Prado MICROALBUMIN, RAND URon 10- mALB <0.5 Normal <=30.0 [facility] Comment on above: Performed By: #### M ALBR #### [facility] [address] [place] [address] [address] Renee Prado PROF 14(COMP METB)on 022 Albumin [Mass/Vol] 4.0 g/dL Normal 3.4-5.0 [facility] Comment on above: Performed By: #### C MP, LIPID #### [facility] [address] [place] [address] [address] Renee Prado Albumin/Globulin [Mass ratio] 1.3 {ratio} Normal [facility] Comment on above: Performed By: #### C MP, LIPID #### [facility] [address] [place] [address] [address] Renee Prado ALP [Catalytic activity/Vol] 40 U/L Critically low 46-116 [facility] Comment on above: Performed By: #### C MP, LIPID #### [facility] [address] [place] [address] [address] Renee Prado ALT [Catalytic activity/Vol] 29 U/L Normal 16-63 [facility] Comment on above: Performed By: #### C MP, LIPID #### [facility] [address] [place] [address] [address] Renee Prado Anion gap [Moles/Vol] 8.4 mmol/L Normal [facility] Comment on above: Performed By: #### C MP, LIPID #### [facility] [address] [place] [address] [address] Renee Prado AST [Catalytic activity/Vol] 16 U/L Normal 15-37 [facility] Comment on above: Performed By: #### C MP, LIPID #### [facility] [address] [place] [address] [address] Renee Prado Bilirubin [Mass/Vol] 0.5 mg/dL Normal 0.2-1.0 [facility] Comment on above: Performed By: #### C MP, LIPID #### [facility] [address] [place] [address] [address] Renee Prado Calcium [Mass/Vol] 9.4 mg/dL Normal 8.5-10.1 [facility] Comment on above: Performed By: #### C MP, LIPID #### [facility] [address] [place] [address] [address] Renee Prado Chloride [Moles/Vol] 103 mmol/L Normal 98-107 [facility] Comment on above: Performed By: #### C MP, LIPID #### [facility] [address] [place] [address] [address] Renee Prado CO2 [Moles/Vol] 30.3 mmol/L Normal 21.0-32.0 [facility] Comment on above: Performed By: #### C MP, LIPID #### [facility] [address] [place] [address] [address] Renee Prado Creatinine [Mass/Vol] 0.83 mg/dL Normal 0.70-1.30 [facility] Comment on above: Performed By: #### C MP, LIPID #### [facility] [address] [place] [address] [address] Renee Prado EGFR-AF LUXEMBOURGER >65 Normal >=60 [facility] Comment on above: Performed By: #### C MP, LIPID #### [facility] [address] [place] [address] [address] Renee Prado EGFR-NON AF LUXEMBOURGER >65 Normal >=60 [facility] Comment on above: Performed By: #### C MP, LIPID #### [facility] [address] [place] [address] [address] Renee Prado Globulin (S) [Mass/Vol] 3.2 g/dL Normal [facility] Comment on above: Performed By: #### C MP, LIPID #### [facility] [address] [place] [address] [address] Renee Prado Glucose [Mass/Vol] 88 mg/dL Normal 74-106 [facility] Comment on above: Performed By: #### C MP, LIPID #### [facility] [address] [place] [address] Dr. Renee Prado Potassium [Moles/Vol] 3.7 mmol/L Normal 3.5-5.1 [facility] Comment on above: Performed By: #### C MP, LIPID #### [facility] [address] [place] [address] Dr. Renee Prado Protein [Mass/Vol] 7.2 g/dL Normal 6.4-8.2 [facility] Comment on above: Performed By: #### C MP, LIPID #### [facility] [address] [place] [address] Dr. Renee Prado Sodium [Moles/Vol] 138 mmol/L Normal 136-145 [facility] Comment on above: Performed By: #### C MP, LIPID #### [facility] [address] [place] [address] [address] Renee Prado Urea nitrogen [Mass/Vol] 12.0 mg/dL Normal 7.0-18.0 [facility] Comment on above: Performed By: #### C MP, LIPID #### [facility] [address] [place] [address] Dr. Renee Prado Urea nitrogen/Creatinine [Mass ratio] 14.5 mg/mg Normal [facility] Comment on above: Performed By: #### C MP, LIPID #### [facility] [address] [address] [address] Renee Prado Vital Signs Date Time Vital Sign Value Performing Clinician Lora kat 06-07-2025 11:32-0400 Body height 193.04 cm Sophie Aichholz SENIOR ELECTRICAL PROJECT MANAGER-C Work Phone: [facility] 06-07-2025 11:32-0400 Body mass index (BMI) [Ratio] 29.2 kg/m2 Sophie Aichholz SENIOR ELECTRICAL PROJECT MANAGER-C Work Phone: [facility] 06-07-2025 11:32-0400 Body temperature 97.8 [degF] Sophie Aichholz SENIOR ELECTRICAL PROJECT MANAGER-C Work Phone: [facility] 06-07-2025 11:32-0400 Body weight 108.86 kg Sophie Aichholz SENIOR ELECTRICAL PROJECT MANAGER-C Work Phone: [facility] 06-07-2025 11:32-0400 Diastolic blood pressure 70 mm[Hg] Sophie Aichholz SENIOR ELECTRICAL PROJECT MANAGER-C Work Phone: [facility] 06-07-2025 11:32-0400 Heart rate 59 /min Sophie Aichholz SENIOR ELECTRICAL PROJECT MANAGER-C Work Phone: [facility] 06-07-2025 11:32-0400 Respiratory rate 18 /min Sophie Aichholz SENIOR ELECTRICAL PROJECT MANAGER-C Work Phone: [facility] 06-07-2025 11:32-0400 SaO2% (BldA) [Mass fraction] 95 % Sophie Aichholz SENIOR ELECTRICAL PROJECT MANAGER-C Work Phone: [facility] 06-07-2025 11:32-0400 Systolic blood pressure 150 mm[Hg] Sophie Aichholz SENIOR ELECTRICAL PROJECT MANAGER-C Work Phone: [facility] 04-12-2025 14:30-0400 Body mass index (BMI) [Ratio] 31.14 kg/m2 Sophie Aichholz SENIOR ELECTRICAL PROJECT MANAGER Work Phone: [facility] 04-12-2025 14:30-0400 Body temperature 98.49 [degF] Sophie Marionjose SENIOR ELECTRICAL PROJECT MANAGER Work Phone: [facility] 04-12-2025 14:30-0400 Body weight 116.03 kg Sophie Marionjose SENIOR ELECTRICAL PROJECT MANAGER Work Phone: [facility] 04-12-2025 14:30-0400 Diastolic blood pressure 76 mm[Hg] Sophie Geethaz SENIOR ELECTRICAL PROJECT MANAGER Work Phone: [facility] 04-12-2025 14:30-0400 Heart rate 86 /min Sophie Washington SENIOR ELECTRICAL PROJECT MANAGER Work Phone: [facility] 04-12-2025 14:30-0400 Respiratory rate 22 /min Sophie Marionjose SENIOR ELECTRICAL PROJECT MANAGER Work Phone: [facility] 04-12-2025 14:30-0400 SaO2% (BldA) [Mass fraction] 96 % Sophie Marionjose SENIOR ELECTRICAL PROJECT MANAGER Work Phone: [facility] 04-12-2025 14:30-0400 Systolic blood pressure 138 mm[Hg] Sophie Geethaz SENIOR ELECTRICAL PROJECT MANAGER Work Phone: [facility] 01-25-2025 14:45-0400 Body temperature 96.98 [degF] Drew HIRSCH [facility] 01-25-2025 14:45-0400 Diastolic blood pressure 77 mm[Hg] Drew HIRSCH [facility] 01-25-2025 14:45-0400 Heart rate 74 /min Drew HIRSCH [facility] 01-25-2025 14:45-0400 Respiratory rate 16 /min Drew HIRSCH [facility] 01-25-2025 14:45-0400 Systolic blood pressure 136 mm[Hg] Drew HIRSCH [facility] 12-13-2024 10:09-0400 Body mass index (BMI) [Ratio] 28.73 kg/m2 Sophie Washington SENIOR ELECTRICAL PROJECT MANAGER Work Phone: [facility] 12-13-2024 10:09-0400 Body temperature 98.49 [degF] Sophie Washington SENIOR ELECTRICAL PROJECT MANAGER Work Phone: [facility] 12-13-2024 10:09-0400 Body weight 107.05 kg Sophie Geethaz SENIOR ELECTRICAL PROJECT MANAGER Work Phone: [facility] 12-13-2024 10:09-0400 Diastolic blood pressure 82 mm[Hg] Sophie Geethaz SENIOR ELECTRICAL PROJECT MANAGER Work Phone: [facility] 12-13-2024 10:09-0400 Heart rate 72 /min Sophie Geethaz SENIOR ELECTRICAL PROJECT MANAGER Work Phone: [facility] 12-13-2024 10:09-0400 Respiratory rate 18 /min Sophieiram Marionbestholz SENIOR ELECTRICAL PROJECT MANAGER Work Phone: [facility] 12-13-2024 10:09-0400 SaO2% (BldA) [Mass fraction] 98 % Sophie Geethaz SENIOR ELECTRICAL PROJECT MANAGER Work Phone: [facility] 12-13-2024 10:09-0400 Systolic blood pressure 128 mm[Hg] Sophie Washington SENIOR ELECTRICAL PROJECT MANAGER Work Phone: [facility] 08-24-2024 15:25-0500 Body height 193 cm Zoraida Broussardpatrick SENIOR ELECTRICAL PROJECT MANAGER Work Phone: [facility] 08-24-2024 15:25-0500 Body mass index (BMI) [Ratio] 28.61 kg/m2 Zoraida Palacioszpatrick SENIOR ELECTRICAL PROJECT MANAGER Work Phone: [facility] 08-24-2024 15:25-0500 Body temperature 96.6 [degF] Zoraida Broussardpatrick SENIOR ELECTRICAL PROJECT MANAGER Work Phone: [facility] 08-24-2024 15:25-0500 Body weight 106.59 kg Zoraida Chavez SENIOR ELECTRICAL PROJECT MANAGER Work Phone: [facility] 08-24-2024 15:25-0500 Diastolic blood pressure 70 mm[Hg] Zoraida Chavez SENIOR ELECTRICAL PROJECT MANAGER Work Phone: [facility] 08-24-2024 15:25-0500 Heart rate 79 /min Zoraida Chavez SENIOR ELECTRICAL PROJECT MANAGER Work Phone: [facility] 08-24-2024 15:25-0500 Respiratory rate 16 /min Zoraida Chavez SENIOR ELECTRICAL PROJECT MANAGER Work Phone: [facility] 08-24-2024 15:25-0500 SaO2% (BldA) [Mass fraction] 97 % Zoraida Chavez SENIOR ELECTRICAL PROJECT MANAGER Work Phone: [facility] 08-24-2024 15:25-0500 Systolic blood pressure 122 mm[Hg] Zoraida Chavez SENIOR ELECTRICAL PROJECT MANAGER Work Phone: [facility] 10-09-2023 11:45-0500 Diastolic blood pressure 69 mm[Hg] [facility] 10-09-2023 11:45-0500 Heart rate 69 /min [facility] 10-09-2023 11:45-0500 Respiratory rate 18 /min [facility] 10-09-2023 11:45-0500 SaO2% (BldA) [Mass fraction] 99 % [facility] 10-09-2023 11:45-0500 Systolic blood pressure 116 mm[Hg] [facility] 10-09-2023 09:23-0500 Body height 193.04 cm [facility] 10-09-2023 09:23-0500 Body weight 108.86 kg [facility] 2023 10:47-0400 Blood Pressure Location CLARISSA MARIELA [facility] 2023 10:47-0400 Diastolic blood pressure 80 mm[Hg] CLARISSA SIERRA [facility] 2023 10:47-0400 Heart rate 78 /min CLARISSA SIERRA [facility] 2023 10:47-0400 Respiratory rate 16 /min CLARISSA SIERRA [facility] 2023 10:47-0400 Systolic blood pressure 132 mm[Hg] CLARISSA SIERRA [facility] Encounters Encounter Date Encounter Type Care Provider Facility Start: 11-11-2025 ambulatory Drew Lamberti ty:[facility] Start: 08-08-2025 ambulatory Drew HIRSCH Facili ty:[facility] Start: 06-07-2025 End: 06-07-2025 ambulatory Sophie Delarosa NP-C Work Phone: [facility] Work Phone: Start: 06-07-2025 End: 06-07-2025 Patient encounter procedure Sophie Delarosa NP-C -[facility] [place] Work Phone: Start: 06-07-2025 Patient encounter status Sophie Delarosa NP-C Work Phone: [facility] Start: 06-03-2025 Non-patient / Non-visit Clinton Reynoso DO [facility] Work Phone: Start: 05-13-2025 End: 05-13-2025 ambulatory Drew HIRSCH Facility:[facility] Start: 05-13-2025 End: 05-13-2025 Patient encounter procedure Drew HIRSCH [facility] Start: 05-03-2025 End: 05-03-2025 Refill Sophie Delarosa SENIOR ELECTRICAL PROJECT MANAGER Work Phone: [facility] Comment on above: Acute rhinitis Iron deficiency Start: 04-14-2025 End: 04-14-2025 ambulatory Drew Hirsch [facility] Work Phone: Start: 04-14-2025 End: 04-14-2025 Departed Referred Drew Hirsch MD -[facility] Start: 04-14-2025 End: 04-14-2025 ambulatory Drew HIRSCH Facility:[id number] Start: 04-12-2025 End: 04-12-2025 Office outpatient visit 25 minutes Sophie Delarosa SENIOR ELECTRICAL PROJECT MANAGER Work Phone: [facility] Comment on above: Prediabetes (Primary Dx); Primary hypertension ; Hydrocele in adult; Acute non-recurrent maxillary sinusitis; Lymphocytopenia Start: 04-12-2025 End: 04-12-2025 Bamboo flowsheet Sophie Delarosa SENIOR ELECTRICAL PROJECT MANAGER Work Phone: [facility] Start: 04-12-2025 End: 04-12-2025 Bamboo flowsheet Sophie Delarosa SENIOR ELECTRICAL PROJECT MANAGER Work Phone: [facility] Start: 04-11-2025 ambulatory Drew HIRSCH Facili ty:[facility] Start: 04-04-2025 End: 04-04-2025 Refill Shen Perez MD Work Phone: [facility] Comment on above: Iron deficiency Start: 03-26-2025 End: 03-26-2025 Clinisync Result Encounter Generic External Data Provider [facility] External [facility] Unsolicited Start: 03-26-2025 End: 03-26-2025 Clinisync Result Encounter Generic External Data Provider [facility] External [facility] Unsolicited Start: 03-18-2025 End: 03-18-2025 ambulatory [facility] Start: 03-18-2025 End: 03-18-2025 Encounter for other preprocedural examination [facility] Start: 03-16-2025 End: 03-16-2025 Orders Only Sophie Washington SENIOR ELECTRICAL PROJECT MANAGER Work Phone: [facility] Comment on above: Abnormal EKG (Primar y Dx) Start: 03-14-2025 End: 03-14-2025 Clinisync Result Encounter Generic External Data Provider [facility] External [facility] Unsolicited Start: 03-14-2025 End: 03-14-2025 Clinisync Result Encounter Generic External Data Provider [facility] Unsolicited Start: 03-07-2025 End: 03-07-2025 ambulatory Drew HIRSCH Facility:[facility] Start: 03-07-2025 End: 03-07-2025 Patient encounter procedure Drew HIRSCH [facility] Start: 03-06-2025 End: 03-06-2025 Refill Shen Perez [...] Start: 01-25-2025 End: 01-25-2025 ambulatory Drew HIRSCH Facility:[facility] [place] Start: 01-25-2025 End: 01-25-2025 Patient encounter procedure Drew HIRSCH [facility] Start: 01-12-2025 End: 01-12-2025 Refill Shen Perez MD Work Phone: [facility] Comment on above: Primary hypertension (CMS/HCC) Start: 01-03-2025 End: 01-03-2025 Refill Shen Perez MD Work Phone: [facility] Comment on above: Acute rhinitis Start: 12-18-2024 End: 12-18-2024 Clinisync Result Encounter Sophie Washington SENIOR ELECTRICAL PROJECT MANAGER Work Phone: [facility]olic[facility] Start: 12-18-2024 End: 12-18-2024 Clinisync Result Encounter Sophie Washington SENIOR ELECTRICAL PROJECT MANAGER Work Phone: [facility]olic[facility] Start: 12-17-2024 End: 12-17-2024 Orders Only Sophie Geethaz SENIOR ELECTRICAL PROJECT MANAGER Work Phone: [facility] Comment on above: Hydrocele in adult ( Primary Dx); Swelling of left half of scrotum Start: 12-14-2024 End: 12-14-2024 Clinisync Result Encounter Sophie Washington SENIOR ELECTRICAL PROJECT MANAGER Work Phone: [facility]olic[facility] Start: 12-14-2024 End: 12-14-2024 Clinisync Result Encounter Sophie Aichholz SENIOR ELECTRICAL PROJECT MANAGER Work Phone: [facility]olic[facility] Start: 12-13-2024 End: 12-13-2024 Bamboo flowsheet Sophie Washington SENIOR ELECTRICAL PROJECT MANAGER Work Phone: [facility] Start: 12-13-2024 End: 12-13-2024 Bamboo flowsheet Sophie Aicjose SENIOR ELECTRICAL PROJECT MANAGER Work Phone: [facility] Start: 12-13-2024 End: 12-13-2024 Office outpatient visit 25 minutes Sophie Washington SENIOR ELECTRICAL PROJECT MANAGER Work Phone: [facility] Comment on above: Swelling of left carmela f of scrotum (Primary Dx); Primary hypertension (CMS/HCC); BPH with urinary obstruction; Erectile dysfunction, unspecified erectile dysfunction type; Prediabetes; Iron deficiency anemia, unspecified iron deficiency anemia type; Mixed hyperlipidemia (CMS/HCC); Screening for prostate cancer; MAR (obstructive sleep apnea) Start: 12-13-2024 End: 12-13-2024 ambulatory SOPHIE ROBBestIDA Not Available Start: 09-05-2024 End: 09-08-2024 Refill Zoraida Chavez SENIOR ELECTRICAL PROJECT MANAGER Work Phone: [facility] Comment on above: Prediabetes Start: 08-30-2024 End: 08-30-2024 Refill Zoraida Chavez SENIOR ELECTRICAL PROJECT MANAGER Work Phone: [facility] Comment on above: Primary hypertension (CMS/HCC) Start: 08-24-2024 End: 08-24-2024 Office outpatient visit 15 minutes Zoraida Chavez SENIOR ELECTRICAL PROJECT MANAGER Work Phone: [facility] Comment on above: Primary hypertension (CMS/HCC) (Primary Dx); Iron deficiency; Other chronic pain; BPH with urinary obstruction; Prediabetes; Mixed hyperlipidemia (CMS/HCC); Acute rhinitis Start: 08-24-2024 End: 08-24-2024 ambulatory ZORAIDA CHAVEZ Not Available Start: 08-24-2024 End: 08-24-2024 Bamboo flowsheet Zoraida Chavez SENIOR ELECTRICAL PROJECT MANAGER Work Phone: [facility] Start: 08-24-2024 End: 08-24-2024 Bamboo flowsheet Zoraida Chavez SENIOR ELECTRICAL PROJECT MANAGER Work Phone: [facility] Start: 08-12-2024 End: 08-12-2024 Refill Zoraida Chavez SENIOR ELECTRICAL PROJECT MANAGER Work Phone: [facility] Comment on above: Other chronic pain Start: 08-12-2024 End: 08-12-2024 Refill Zoraida Chavez SENIOR ELECTRICAL PROJECT MANAGER Work Phone: [facility] Comment on above: TIA (transient ische harley attack) Start: 08-10-2024 End: 08-10-2024 Refill Christi Bond MA [facility] Comment on above: Hyperlipidemia, unsp ecified hyperlipidemia type (CMS/HCC) Start: 07-14-2024 End: 07-14-2024 Refill Christi Bond MA [facility] Comment on above: Other chronic pain Start: 07-12-2024 End: 07-12-2024 Refill Zoraida Chavez SENIOR ELECTRICAL PROJECT MANAGER Work Phone: [facility] Comment on above: Primary hypertension (CMS/HCC) Start: 06-23-2024 End: 06-23-2024 Bamboo flowsheet Barbara B Apling SENIOR ELECTRICAL PROJECT MANAGER Work Phone: [facility] Start: 06-23-2024 End: 06-23-2024 Bamboo flowsheet Barbara B Apling SENIOR ELECTRICAL PROJECT MANAGER Work Phone: [facility] Start: 06-23-2024 End: 06-23-2024 Office outpatient visit 25 minutes Barbara B Apling SENIOR ELECTRICAL PROJECT MANAGER Work Phone: [facility] Comment on above: Left knee pain, unsp ecified chronicity (Primary Dx); Arthritis of left knee Start: 06-23-2024 End: 06-23-2024 ambulatory BARBARA B APLING Not Available Start: 06-21-2024 End: 06-21-2024 Refill Wendy Lewis [facility] Comment on above: Iron deficiency Start: 03-29-2024 End: 03-29-2024 ambulatory BARBARA B APLING Not Available Start: 03-15-2024 End: 03-15-2024 ambulatory BARABRA B APLING Not Available Start: 03-08-2024 End: 03-08-2024 ambulatory BARBARA B APLING Not Available Start: 02-25-2024 End: 02-25-2024 ambulatory SHAIKH BREANNA Not Available Start: 10-09-2023 Non-patient / Non-visit [facility] Work Phone: Start: 09-03-2023 Orders Only Shaikh Breanna WEAVER Work Phone: INTERFACE-ONLY [facility] Comment on above: Anemia, unspecified Start: 08-26-2023 Patient encounter status Wendy Lewis [facility] Start: 2023 End: 2023 Patient encounter procedure CLARISSACOOPER SIERRA [facility] Start: 06-25-2022 End: 06-26-2022 ambulatory SHAIKH Best CARLOS Facility:[facility] Procedures Date Procedure Procedure Detail Performing Clinician Start: 04-12-2025 Hemoglobin glycosyla jackie a1c Sophie Delarosa SENIOR ELECTRICAL PROJECT MANAGER Work Phone: Start: 03-26-2025 CA ECHO DOPPLER COMPLETE Generic External Data Provider Start: 03-14-2025 ALL BASIC METABOLIC PANEL Generic External Data Provider Start: 03-14-2025 ECG 12-LEAD Generic Ex ternal Data Provider Start: 02-09-2025 Us scrotum & contents G eneric External Data Provider Start: 01-25-2025 Flexible cystoscope (physical object) Drew HIRSCH Start: 12-18-2024 ALL CBC WITH AUTO DIFF Sophie Dealrosa SENIOR ELECTRICAL PROJECT MANAGER Work Phone: Start: 12-14-2024 Us scrotum & contents L jenny Washington SENIOR ELECTRICAL PROJECT MANAGER Work Phone: Start: 06-23-2024 Arthrocentesis aspir &/inj major jt/bursa w/o us Barbara B Apling SENIOR ELECTRICAL PROJECT MANAGER Work Phone: Start: 02-27-2023 Microalbumin [Mass/v olume] in Urine by Test strip Shaikh Breanna WEAVER Work Phone: Start: 06-25-2022 PSA screening SHAIKH DUNCAN ORDONEZ Comment on above: Performed By: #### P SAD #### [facility] [address] [address] [address] Renee Prado Start: 10-07-2017 Colonoscopy Wendy sims Carpal tunnel syndro me (disorder) CLARISSA SIERRA Colonoscopy CLARISSA SIERRA H/O: surgery Status post repa ir of hydrocele Drew HIRSCH Tonsillectomy CLARISSA SIERRA Plan of Treatment Date Care Activity Detail Author Start: 06-30-2030 DTaP,Tdap and Td Vaccines (2 - Td or Tdap) DTaP,Tdap and Td Vaccines (2 - Td or Tdap) [facility] Start: 10-07-2027 Screening for malign ant neoplasm of colon [facility] Start: 12-18-2025 Urine screening for protein Diabetes: Urine Protein Screening [facility] Start: 08-18-2025 Glaucoma screening Diabetes: R etinopathy Screening [facility] Start: 07-14-2025 End: 07-14-2025 Patient encounter procedure 07/14/2025 1:20 PM EST Office Visit [facility] [address] [place] [id number] Sophie Delarosa NP [address] [place] [address] [facility] Start: 05-13-2025 End: 04-12-2026 CBC W Auto Differential panel - Blood CBC and differential Lab Routine Lymphocytopenia Expected: 05/13/2025 (Approximate), Expires: 04/12/2026 [facility] Work Phone: Comment on above: Expected: 05/13/2025 (Approximate), Expires: 04/12/2026 Start: 05-09-2025 Influenza vaccination Influenza Vacc ine (#1) [facility] Start: 04-12-2025 End: 04-12-2025 Patient encounter procedure [facility] Comment on above: Primary hypertension (Primary Dx); Hydrocele in adult; Prediabetes Start: 03-16-2025 End: 03-16-2026 ECG 12 lead ECG 12 lead ECG Routine Abnormal EKG Expected: 03/16/2025 (Approximate), Expires: 03/16/2026 [facility] Work Phone: Comment on above: Expected: 03/16/2025 (Approximate), Expires: 03/16/2026 Start: 03-14-2025 End: 03-14-2025 Patient encounter procedure 03/14/2025 3:20 PM EDT Office Visit [facility] [address] [place] [address] Sophie Delarosa, SENIOR ELECTRICAL PROJECT MANAGER [address] [place] [address] [facility] Start: 02-23-2025 End: 02-23-2025 Patient encounter procedure [facility] Start: 12-13-2024 End: 12-13-2025 CBC W Auto Differential panel - Blood CBC and differential Lab Routine Iron deficiency anemia, unspecified iron deficiency anemia type Expected: 12/13/2024 (Approximate), Expires: 12/13/2025 [facility] Work Phone: Comment on above: Expected: 12/13/2024 (Approximate), Expires: 12/13/2025 Start: 12-13-2024 End: 12-13-2025 Comprehensive metabolic 2000 panel - Serum or Plasma Comprehensive metabolic panel Lab Routine Primary hypertension (CMS/HCC) Prediabetes Mixed hyperlipidemia (CMS/HCC) Expected: 12/13/2024 (Approximate), Expires: 12/13/2025 [facility] Comment on above: Expected: 12/13/2024 (Approximate), Expires: 12/13/2025 Start: 12-13-2024 End: 12-13-2025 Ferritin [Mass/volume] in Serum or Plasma Ferritin Lab Routine Iron deficiency anemia, unspecified iron deficiency anemia type Expected: 12/13/2024 (Approximate), Expires: 12/13/2025 [facility] Comment on above: Expected: 12/13/2024 (Approximate), Expires: 12/13/2025 Start: 12-13-2024 End: 12-13-2025 Hemoglobin A1c/Hemoglobin.total in Blood Hemoglobin A1c Lab Routine Prediabetes Expected: 12/13/2024 (Approximate), Expires: 12/13/2025 [facility] Comment on above: Expected: 12/13/2024 (Approximate), Expires: 12/13/2025 Start: 12-13-2024 End: 12-13-2025 Iron + transferrin + TIBC Iron + transferrin + TIBC Lab Routine Iron deficiency anemia, unspecified iron deficiency anemia type Expected: 12/13/2024 (Approximate), Expires: 12/13/2025 [facility] Comment on above: Expected: 12/13/2024 (Approximate), Expires: 12/13/2025 Start: 12-13-2024 End: 12-13-2025 Lipid 1996 panel - Serum or Plasma Lipid panel Lab Routine Mixed hyperlipidemia (CMS/HCC) Expected: 12/13/2024 (Approximate), Expires: 12/13/2025 [facility] Comment on above: Expected: 12/13/2024 (Approximate), Expires: 12/13/2025 Start: 12-13-2024 End: 12-13-2025 Microalbumin/Creatinine panel in random Urine Microalbumin / creatinine, urine ratio Lab Routine Primary hypertension (CMS/HCC) Prediabetes Expected: 12/13/2024 (Approximate), Expires: 12/13/2025 [facility] Comment on above: Expected: 12/13/2024 (Approximate), Expires: 12/13/2025 Start: 12-13-2024 End: 12-13-2025 Prostate specific Ag [Mass/volume] in Serum or Plasma PSA Lab Routine Screening for prostate cancer Expected: 12/13/2024 (Approximate), Expires: 12/13/2025 [facility] Comment on above: Expected: 12/13/2024 (Approximate), Expires: 12/13/2025 Start: 12-13-2024 End: 12-13-2025 Urinalysis complete panel - Urine Urinalysis with reflex microscopic (clean catch) Lab Routine Primary hypertension (CMS/HCC) Prediabetes Expected: 12/13/2024 (Approximate), Expires: 12/13/2025 [facility] Comment on above: Expected: 12/13/2024 (Approximate), Expires: 12/13/2025 Start: 12-13-2024 End: 12-13-2025 US Scrotum and testicle US scrotum Imaging High Priority Swelling of left half of scrotum Expected: 12/13/2024 (Approximate), Expires: 12/13/2025 [facility] Comment on above: Expected: 12/13/2024 (Approximate), Expires: 12/13/2025 Start: 12-13-2024 End: 12-13-2024 Patient encounter procedure 12/13/2024 10:00 AM EDT Office Visit [facility] [address] [place] [phone] Sophie Delarosa NP [address] [place] [phone] Primary hypertension (CMS/HCC) (Primary Dx); BPH with urinary obstruction; Erectile dysfunction, unspecified erectile dysfunction type; Prediabetes; Iron deficiency anemia, unspecified iron deficiency anemia type; Mixed hyperlipidemia (CMS/HCC); Screening for prostate cancer; Swelling of left testicle [facility] Comment on above: Primary hypertension (CMS/HCC) (Primary Dx); BPH with urinary obstruction; Erectile dysfunction, unspecified erectile dysfunction type; Prediabetes; Iron deficiency anemia, unspecified iron deficiency anemia type; Mixed hyperlipidemia (CMS/HCC); Screening for prostate cancer; Swelling of left testicle Start: 08-24-2024 End: 08-24-2024 Patient encounter procedure [facility] Comment on above: Arrived Start: 08-23-2024 End: 08-23-2024 Patient encounter procedure 08/23/2024 8:00 AM EST Office Visit [facility] [address] [place] [address] Barbara Messer NP [address] [place] [address] [facility] Start: 06-23-2024 End: 06-23-2024 Patient encounter procedure [facility] Comment on above: Left knee pain, unsp ecified chronicity (Primary Dx); Arthritis of left knee Start: 05-09-2024 Influenza vaccination Influenza Vacc ine (#1) [facility] Start: 02-29-2024 Urine screening for protein Diabetes: Urine Protein Screening [facility] Start: 02-28-2024 Urine screening for protein Urine Microalbumin [facility] Start: 10-09-2023 [facility] Start: 09-03-2023 End: 09-03-2024 Ferritin [Mass/volume] in Serum or Plasma Ferritin Lab Routine Anemia, unspecified Expected: 09/03/2023, Expires: 09/03/2024 [facility] Work Phone: Comment on above: Expected: 09/03/2023 , Expires: 09/03/2024 Start: 03-01-2023 Adult BMI Screening Adult BMI Screen ing [facility] Start: 03-01-2023 Tobacco Screening Tobacco Screening [facility] Start: 2022 Fall Risk Screening Fall Risk Screen ing [facility] Start: 1975 Diabetic foot examination Diabetic Foot Exam [facility] Start: 1969 Depression Screening Depression Scre ening [facility] Start: 1957 Glaucoma screening Diabetic Op hthalmology Exam [facility] Start: 1957 Medicare Annual Wellness Visit Medicare Annual Wellness Visit [facility] Start: 1957 Screening for malign ant neoplasm of colon [facility] Microalbumin/Creatin ine panel in random Urine Microalbumin / creatinine urine ratio Lab Routine Primary hypertension (CMS/HCC) Ordered: 08/24/2024 [facility] Work Phone: Comment on above: Ordered: 08/24/2024 Immunizations Immunization Date Immunization Notes Care Provider Duncan castro 07-10-2024 influenza virus vaccine, unspecified formulation Drew HIRSCH [facility] 07-10-2024 influenza, high dose seasonal, preservative-free Shen Perez MD Work Phone: [facility] 06-08-2024 influenza virus vaccine, unspecified formulation Drew HIRSCH [facility] Comment on above: Result Comment: 2024: [facility] 06-08-2024 influenza, seasonal, injectable Zoraida Chavez SENIOR ELECTRICAL PROJECT MANAGER Work Phone: [facility] 09-13-2023 Pneumococcal Conjuga te PCV 20 Wendy Debbie [facility] 08-15-2023 RSV vaccine preF3, recombinant Drew HIRSCH [facility] 08-15-2023 RSV, recombinant, protein subunit RSVpreF, adjuvant reconstitu, 120mcg/0.5mL, PF (Arexvy) Wendywesley Lewis [facility] 06-22-2023 Influenza, Seasonal, Quadrivalent, Adjuvanted Wendy Dbebie [facility] 06-22-2023 influenza virus vaccine, unspecified formulation Wendywesley Lewis [facility] 07-04-2022 SARS-CoV-2 (COVID-19 ) mRNAMUL.[id number] CLARISSA SIERRA [facility] 06-15-2022 influenza virus vaccine, unspecified formulation CLARISSA SIERRA [facility] 06-15-2022 Influenza, Seasonal, Quadrivalent, Adjuvanted Wendy Lewis [facility] 12-07-2020 SARS-CoV-2 (COVID-19 ) mRNA BNT-162b2 vax CLARISSA SIERRA [facility] 11-17-2020 SARS-CoV-2 (COVID-19 ) mRNA BNT-162b2 vax CLARISSA SIERRA [facility] Comment on above: Result Comment: 2022: [id number] 06-30-2020 influenza virus vaccine, unspecified formulation CLARISSA MARIELA [facility] 06-30-2020 influenza, injectabl e, quadrivalent, preservative free Wendy Debbie [facility] 06-30-2020 tetanus toxoid, reduced diphtheria toxoid, and acellular pertussis vaccine, adsorbed CLARISSA MARIELA [facility] 03-15-2020 zoster vaccine recombinant CLARISSA MARIELA [facility] 10-11-2019 zoster vaccine recombinant CLARISSA MARIELA [facility] 07-29-2019 influenza virus vaccine, unspecified formulation CLARISSA MARIELA [facility] 07-29-2019 influenza, injectabl e, quadrivalent, preservative free Wendy Debbie [facility] 07-17-2018 influenza virus vaccine, unspecified formulation CLARISSA MARIELA [facility] 07-17-2018 Influenza, injectabl e, Madin [place] [facility], preservative free, quadrivalent Wendy Debbie [facility] 12-19-2016 zoster vaccine, live JENNIFE R MARIELA [facility] 09-18-2009 novel [id number], preservative-free, injectable Wendy Debbie [facility] Payers Date Payer Category Payer Self-pay 2025 Private Health Insurance [id number] 2017 Private Health Insurance [id number] 1959 Private Health Insurance [id number] 1957 Unknown [id number] 2.16.84 [id number] 1957 Unknown [id number] 2.16.84 0.1.190655.3.579.2.9 1957 Unknown [id number] 2.16.84 0.1.365484.3.579.2.1258 1957 Unknown [id number] 2.16.84 0.1.722476.3.579.2.1258 1957 Unknown [id number] 2.16.84 0.1.498601.3.579.2.1258 1957 Unknown [id number] 2.16.84 0.1.245874.3.579.2.1258 1957 Unknown [id number] 2.16.84 0.1.476568.3.579.2.1258 1957 Unknown [id number] 2.16.84 0.1.211861.3.579.2.1258 1957 Unknown [id number] 2.16.8 40.1.138388.3.579.2. 1957 Unknown [id number] 2.16.8 40.1.862477.3.579.2. 1957 Unknown [id number] 2.16.8 40.1.898372.3.579.2. 1957 Unknown [id number] 2.16.8 40.1.263835.3.579.2. 1957 Unknown [id number] 2.16.8 40.1.686560.3.579.2. 1957 Unknown [id number] 2.16.8 40.1.151796.3.579.2. 1957 Unknown [id number] 2.16.8 40.1.411929.3.579.2. 1957 Unknown [id number] 2.16.8 40.1.058912.3.579.2.72 Unknown [facility] [id number] Unknown [id number] 2.16.8 40.1.280843.3.579.2.531 Social History Date Type Detail Facility Start: 2023 End: 10-09-2023 Tobacco smoking status Never smoked tobacco (finding) [facility] Tobacco smoking status Never [facility] Start: 08-25-2023 End: 04-12-2025 Sex Assigned At Male [facility] Start: 1955 Sex Assigned At Male [facility] Start: 12-03-2021 End: 02-25-2024 Tobacco use and exposure Smokeless tobacco non-user [facility] [employer] [facility] Start: 03-29-2024 End: 04-12-2025 Alcoholic beverage intake Lifetime non-drinker (finding) [facility] Start: 08-25-2023 End: 04-12-2025 History of Social function [facility] Within the last year , have you been afraid of your partner or ex-partner? No [facility] Do you belong to any clubs or organizations such as judaism groups, unions, fraternal [...] Sex assigned at Not on file [facility] Start: 03-01-2022 Alcohol intake Ex-drinker (finding) [facility] [employer] [facility] Sexual Orientation [facility] Sex Male (finding) [facility] NEGATED: Highlighted rowStart: NINF History of tobacco use Passive smoker [facility] Functional Status Date Assessment Result Facility 01-25-2025 Functional Status N/A [facility] 2023 Functional Status N/A [facility] Clinical Notes 2023 to 05-13-2025 Sophie Delarosa [...] Follow these instructions at home: Medicines Take ibsn-loe-zmxnlhw and prescription medicines only as told by your health care provider. Ask your health care provider if the medicine prescribed to you: ?Requires you to avoid driving or using machinery. ?Can cause constipation. You may need to take these actions to prevent or treat constipation: ?Drink enough fluid to keep your urine pale yellow. ?Take ambx-jgn-pvqquxe or prescription medicines. ?Eat foods that are [...] and water are not available, use hand lecturer in computer science. ?Change your dressing as told by your [...] provider. Document Revised: 04/11/2022 Document Reviewed: 04/11/2022 [employer] Patient Education 2023 [employer]. Follow Up Care 04/05/2025 08:41:06 With:BETO WEAVER, Drew Painting, URL Address: [address] [place] [id number] When: Unknown Comments:6 mos [facility] 05-13-2025 Note Patient Education Urology Hydrocelectomy, Adult, [...] these instructions at home: Medicines ??? Take ndua-txw-itbesdf and prescription medicines only as told by your health care provider. ??? Ask your health care provider if the medicine prescribed to you: ? Requires you to avoid driving or using machinery. ? Can cause constipation. You may need to take these actions to prevent or treat constipation: ? Drink enough fluid to keep your urine pale yellow. ? Take jliy-ohb-eyipuzy or prescription medicines. ? Eat foods that [...] and water are not available, use hand lecturer in computer science. ? Change your dressing as told by [...] ??? Do not (more content not included)... [facility] 04-12-2025 History of Present illness Narrative Associated [...] Date Arthritis BPH with urinary obstruction Diabetes ([facility]) DM II (diabetes mellitus, type II), controlled ([facility]) Erectile dysfunction History of TIA (transient ischemic [...] Current meds: metoprolol documented in this encounter [facility] 04-12-2025 Instructions Sophie Delarosa NP - 04/12/2025 2:20 PM EDT Check blood work again in 4 weeks documented in this encounter [facility] 04-05-2025 Note Patient Education Urology Hydrocelectomy, Adult, [...] these instructions at home: Medicines ??? Take tlse-san-kimgufq and prescription medicines only as told by your health care provider. ??? Ask your health care provider if the medicine prescribed to you: ? Requires you to avoid driving or using machinery. ? Can cause constipation. You may need to take these actions to prevent or treat constipation: ? Drink enough fluid to keep your urine pale yellow. ? Take najl-pgh-ovyxlne or prescription medicines. ? Eat foods that [...] and water are not available, use hand lecturer in computer science. ? Change your dressing as told by [...] ??? Do not (more content not included)... [facility] 03-29-2025 Note I reviewed the patie nt's echo and it appears to be normal. Therefore the patient can proceed with surgery from the cardiac point of view with necessary anesthesia. He is considered to be at low risk for perioperative cardiac events [facility] 03-18-2025 Note [facility] [facility] Note Reason for cardiology [...] medical history of Abnormal ECG, Diabetes mellitus ([facility]), Hyperlipidemia, Hypertension, and Stroke ([facility]). Surgical History He has no past surgical [...] enlargement, otherwise normal EKG Echo 11/01/2021 at [facility] Left Ventricle: Systolic function is normal [...] systolic pressure. How (more content not included)... [facility] 03-16-2025 Telephone encounter Note Please contact pt, his EKG was abnormal that he had the other day, however I am wondering if the tracing is not entirely accurate. I would like to repeat an EKG to see if it was a fluke or not. When is his surgery scheduled for? NICKOLAS [facility] 03-16-2025 Miscellaneous Notes Please contact pt, his EKG was abnormal that he had the other day, however I am wondering if the tracing is not entirely accurate. I would like to repeat an EKG to see if it was a fluke or not. When is his surgery scheduled for? NICKOLAS documented in this encounter [facility] 03-07-2025 Hospital Discharge instructions Patient Education 03/07/2025 [...] Follow these instructions at home: Medicines Take zqth-nmt-thjgfgy and prescription medicines only as told by your health care provider. Ask your health care provider if the medicine prescribed to you: ?Requires you to avoid driving or using machinery. ?Can cause constipation. You may need to take these actions to prevent or treat constipation: ?Drink enough fluid to keep your urine pale yellow. ?Take xypj-pkd-zvscvdx or prescription medicines. ?Eat foods that are [...] and water are not available, use hand lecturer in computer science. ?Change your dressing as told by your [...] provider. Document Revised: 04/11/2022 Document Reviewed: 04/11/2022 [employer]Show Patient Education 2023 [employer] 03/07/2025 15:19:45 Hydrocelectomy, Adult Hydrocelectomy, Adult [...] including vitamins, herbs, eye drops, creams, and mviz-uan-gasjijt medicines. Any problems you or family members [...] provider tells you to take them. Taking jien-bwh-bijbolr medicines, vitamins, herbs, and supplements. Surgery safety [...] provider. Document Revised: 04/11/2022 Document Reviewed: 04/11/2022 [employer]Show Patient Education 2023 [employer]. Follow Up Care 02/17/2025 12:41:43 With:BETO WEAVER, Drew Pain[employer], URL Address: [facility] [address], [place] [phone] When: Unknown Comments:westley Hays hydrocelectomy [facility] 03-07-2025 Note Patient Education Urology Hydrocelectomy, Adult, [...] these instructions at home: Medicines ??? Take ejqp-zaa-maujsfb and prescription medicines only as told by your health care provider. ??? Ask your health care provider if the medicine prescribed to you: ? Requires you to avoid driving or using machinery. ? Can cause constipation. You may need to take these actions to prevent or treat constipation: ? Drink enough fluid to keep your urine pale yellow. ? Take ldgw-eea-liydidi or prescription medicines. ? Eat foods that [...] and water are not available, use hand lecturer in computer science. ? Change your dressing as told by [...] ??? Do not (more content not included)... [facility] 01-25-2025 Hospital Discharge instructions Patient Education 01/25/2025 [...] urethra. Follow these instructions at home: Take kqzt-xhk-egtugry and prescription medicines only as told by [...] provider. Document Revised: 03/13/2022 Document Reviewed: 03/13/2022 [employer]Show Patient Education 2023 [employer]. Follow Up Care 01/04/2025 15:06:55 With:BETO WEAVER, Drew Painting, NAYANA Address: [facility] [address] , [place] [address]- When: Unknown [facility] 01-25-2025 Note Patient Education Urology Benign Prostatic [...] Follow these instructions at home: ??? Take phaz-hms-deaqfdi and prescription medicines only as told by [...] do not get (more content not included)... [facility] 01-03-2025 Note Urology Office/Clini c Note Chief [...] this time. -Cont monitoring 4. Anticoagulated (Z79.01: emt intermediate (current) use of anticoagulants) Plavix. [1] Follow-up With When Contact Information BETO WEAVER, Drew Painting, URL [facility] [address] [place] [phone] Additional Instructions: sched cysto Patient Education Cystoscopy [...] data Procedure/Surgical Hist (more content not included)... [facility] Comment on above: Result Comment: Elec [...] including vitamins, herbs, eye drops, creams, and eaqt-wjg-rmhkpjo medicines. ??? Any problems you or family [...] tells you to take them. ??? Taking ydar-hgu-oxkjgco medicines, vitamins, herbs, and supplements. Tests You [...] these instructions at home: Medicines ??? Take vvja-jbv-lqezptc and prescription medicines only as told by [...] (biopsy) during your (more content not included)... [facility] 12-13-2024 History of Present illness Narrative Associated [...] Suspected inguinal hernia with hydrocele Check US [facility] Pt states that it started swelling a [...] There is no history of kidney disease, CAD/OR or heart failure. Diabetes He presents for [...] being taken. He does not see a hardwood floor layer.Eye exam is current. SUBJECTIVE: MEDICATIONS: Current Outpatient [...] Date Arthritis BPH with urinary obstruction Diabetes ([facility]) DM II (diabetes mellitus, type II), controlled ([facility]) Erectile dysfunction History of TIA (transient ischemic attack) HLD (hyperlipidemia) ([facility]) Hypertension ([facility]) Right knee pain Past Surgical History: Procedure [...] Orders Comprehensive metabolic panel Lipid panel Hypertension ([facility]) Please check blood pressure daily and record [...] Current meds: metoprolol documented in this encounter [facility] 12-13-2024 Instructions Sophie Delarosa NP - 12/13/2024 10:00 AM EDT Labs are due: fasting 8 hours US scrotum: I will order US at [facility], ,ext [id number] documented in this encounter [facility] 08-24-2024 History of Present illness Narrative Associated [...] RISK >11.0 HIGH RISK Resulting Agency [facility] Prediabetes: Currently taking Metformin 500mg Denies any [...] 15 MG tablet documented in this encounter [facility] 08-12-2024 Telephone encounter Note Patient is asking if his meloxicam can be a 90 day supply like all his other medications. I did put in for a refill of the low dose aspirin. SON [facility] 08-12-2024 Miscellaneous Notes Patient is asking if his meloxicam can be a 90 day supply like all his other medications. I did put in for a refill of the low dose aspirin. SON documented in this encounter [facility] 08-10-2024 Telephone encounter Note MANDO: NOV:09/03/2024 [facility] 08-10-2024 Miscellaneous Notes MANDO: NOV:09/03/2024 documented in this encounter [facility] 07-14-2024 Telephone encounter Note Mando:02/25/2024 NOV:08/23/2024 [facility] 07-14-2024 Miscellaneous Notes Mando:02/25/2024 NOV:08/23/2024 documented in this encounter [facility] 06-23-2024 History of Present illness Narrative Associated [...] 1/10 pain at rest. Pain with activities 1-9/10, laying down 10/10. Admits waking at night. Denies N/T. Notes [...] in 2 months documented in this encounter [facility] 2023 Hospital Discharge instructions Patient Education 2023 [...] urethra. Follow these instructions at home: Take amkq-znr-yhmdpse and prescription medicines only as told by [...] provider. Document Revised: 03/13/2022 Document Reviewed: 03/13/2022 ClientShow Patient Education 2022 [employer]. Follow Up Care 03/05/2023 09:34:37 With:CLARISSA SIERRA PA-C, URL Address: [address] [place] [address] When: Unknown Comments:Sched Cysto/TRUS w/KML [facility] Evaluation + Plan note No data available for this section [facility] Evaluation + Plan note Future Appointments Appointment Date:08/08/2025 10:30:00 AM Scheduled Provider:Drew HIRSCH MD Location:[facility] Appointment Type:URO Office Visit [facility] Evaluation + Plan note Future Appointments Appointment Date:04/11/2025 02:30:00 PM Scheduled Provider:Drew HIRSCH MD Location:[facility] Appointment Type:URO Office Visit Appointment Date:08/08/2025 10:30:00 AM Scheduled Provider:Drew HIRSCH MD Location:[facility] Appointment Type:URO Office Visit [facility] Evaluation + Plan note Future Appointments Appointment Date:08/08/2025 10:30:00 AM Scheduled Provider:Drew HIRSCH MD Location:[facility] Appointment Type:URO Office Visit Appointment Date:11/11/2025 08:30:00 AM Scheduled Provider:Drew HIRSCH MD Location:[facility] Appointment Type:URO Office Visit [facility] Evaluation note No assessment inform ation available [facility] Work Phone: Evaluation note Diagnosis Primary hypertension [...] of iron metabolism documented in this encounter [facility] HealthcareEvaluation note* Diagnosis Primary hypertension (CMS/HCC)- Primary [...] of left knee documented in this encounter [facility] HealthcareEvaluation note* Diagnosis Primary hypertension (CMS/HCC)- Primary [...] of left knee documented in this encounter [facility] HealthcareEvaluation note* Diagnosis Primary hypertension (CMS/HCC)- Primary [...] Unspecified essential hypertension documented in this encounter [facility]Evaluation note* Diagnosis Primary hypertension (CMS/HCC)- Primary [...] Other chronic pain documented in this encounter [facility] HealthcareEvaluation note* Diagnosis Primary hypertension (CMS/HCC)- [...] hyperlipidemia type (CMS/HCC) documented in this encounter [facility] HealthcareEvaluation note* Diagnosis Primary hypertension (CMS/HCC)- [...] Other chronic pain documented in this encounter [facility] HealthcareEvaluation note* Diagnosis Primary hypertension (CMS/HCC)- [...] transient cerebral ischemia documented in this encounter [facility]Evaluation note* Diagnosis Primary hypertension (CMS/HCC)- Primary [...] nasopharyngitis (common cold) documented in this encounter [facility]Evaluation note* Diagnosis Primary hypertension (CMS/HCC)- Primary [...] Unspecified essential hypertension documented in this encounter [facility] HealthcareEvaluation note* Diagnosis Primary hypertension (CMS/HCC)- Primary [...] Other abnormal glucose documented in this encounter [facility]Evaluation note* Diagnosis Anemia, unspecified documented in this encounter [facility] Diagnosis Primary hypertension (CMS/HCC)- Primary [...] apnea (adult) (pediatric) documented in this encounter [facility] HealthcareEvaluation note* Diagnosis Primary hypertension (CMS/HCC)- Primary [...] half of scrotum documented in this encounter [facility] HealthcareEvaluation note* Diagnosis Primary hypertension (CMS/HCC)- [...] nasopharyngitis (common cold) documented in this encounter [facility] HealthcareEvaluation note* Diagnosis Primary hypertension (CMS/HCC)- [...] Unspecified essential hypertension documented in this encounter [facility] HealthcareEvaluation note* Diagnosis Primary hypertension- Primary Unspecified [...] unspecified hyperlipidemia type documented in this encounter [facility] HealthcareEvaluation note* Diagnosis Primary hypertension- Primary Unspecified [...] Other abnormal glucose documented in this encounter [facility] HealthcareEvaluation note* Diagnosis Primary hypertension- Primary Unspecified [...] tract symptoms (LUTS) documented in this encounter [facility] HealthcareEvaluation note* Diagnosis Primary hypertension- Primary Unspecified [...] Other chronic pain documented in this encounter [facility] HealthcareEvaluation note* Diagnosis Primary hypertension- Primary Unspecified [...] electrocardiogram (ECG) (EKG) documented in this encounter [facility] HealthcareEvaluation note* Diagnosis Primary hypertension- Primary Unspecified [...] of iron metabolism documented in this encounter [facility] HealthcareEvaluation note* Diagnosis Primary hypertension- Primary Unspecified [...] maxillary sinusitis Lymphocytopenia documented in this encounter [facility]Evaluation note* Diagnosis Primary hypertension- Primary Unspecified [...] nasopharyngitis (common cold) documented in this encounter [facility] HealthcareEvaluation note* Diagnosis Primary hypertension- Primary Unspecified [...] of iron metabolism documented in this encounter [facility] Discharge instructions Additional Instructions DISCHARGE INSTRUCTIONS [...] years. -Follow up with PCP. -Office number [phone]. [facility] [employer] Work Phone: InstructionsNot on filedocumented in this encounter [facility] No data available for this section [facility] reason for referral (narrative)No reason for referral [facility] Work Phone: Summary Purpose Family History Relationship Condition Age [...] Asthma Unknown Diabetes mellitus Unknown Advance Directives Advance Directive Response Recorded Date/ Time Advance Directives No October 07, 2023 4:56pm Advance Directive Response Recorded Date/ Time Advance Directives No October 07, 2023 5:56pm Chief Complaint and Reason for Visit Chief Complaint Screening Chief Complaint Admit Date Unknown April 14, 2025 10: 03am Chief Complaint Admit Date Unknown April 14, 2025 10: 03am Hospital Followup June 07, 2025 11:09am Additional Source Comments (unrecognized sect ion and content) No Status Records FoundNo Status Records FoundNo Status Records FoundNo Status Records FoundNo Status Records Found INFORMATION SOURCE (unrecogn ized section and content) DATE CREATED AUTHOR 06/30/2022 [facility] DATE CREATED AUTHOR AUTHOR'S ORGANIZ ATION 12/14/2024 [facility] EPIC DATE CREATED AUTHOR AUTHOR'S ORGANIZ ATION 04/02/2025 [facility] DATE CREATED AUTHOR AUTHOR'S ORGANIZ ATION 04/19/2025 [facility] DATE CREATED AUTHOR AUTHOR'S ORGANIZ ATION 05/15/2025 [facility] Patient Care team informatio n (unrecognized section and content) Team Status: Active Member Role Status Dates ANASTACIO Parekh Primary Care Provider Active Team Status: Inactive Member Role Status Dates Drew Hirsch MD Attending Provider Active St art: April 14, 2025 End: April 14, 2025 Team Status: Active Member Role Status Dates Clinton Marr DO Attending Provider Active S tart: June 03, 2025 Team Status: Inactive Member Role Status Dates ANASTACIO Parekh Primary Care Provider Active Start: June 07, 2025 End: June 07, 2025 ANASTACIO Parekh Attending Provider Active Start: June 07, 2025 End: June 07, 2025 Team Status: Active Member Role Status Dates Shaikh Breanna MD Primary Care Provider Active Team Status: Active Member Role Status Dates Mora Godoy MD Attending Provider, Other Provider Active Start: October 09, 2023 Shaikh Breanna MD Primary Care Provider Active Start: October 09, 2023 Swatch Clerk Relationship Specialty Start Date End Date Shen Perez MD [address] [place] [phone] PCP - General Family Medicine 06/02/24 Zoraida Chavez NP [address] [place] [address] Nurse Practitioner Family Medicine 06/02/24 Swatch Clerk Relationship Specialty Start Date End Date Shen Perez MD [address] [place] [phone] PCP - General Family Medicine 06/02/24 Zoraida Chavez NP [address] [place] [address] Nurse Practitioner Family Medicine 06/02/24 Swatch Clerk Relationship Specialty Start Date End Date Shen Perez MD [address] [place] [phone] PCP - General Family Medicine 06/02/24 Zoraida Chavez NP [address] [place] [address] Nurse Practitioner Family Medicine 06/02/24 Swatch Clerk Relationship Specialty Start Date End Date Shen Perez MD [address] [place] [phone] PCP - General Family Medicine 06/02/24 Zoraida Chavez NP [address] [place] [address] Nurse Practitioner Family Medicine 06/02/24 Swatch Clerk Relationship Specialty Start Date End Date Shen Perez MD [address] [place] [address] PCP - General Family Medicine 06/02/24 Zoraida Chavez NP [address] [place] [address] Nurse Practitioner Family Medicine 06/02/24 Swatch Clerk Relationship Specialty Start Date End Date Shen Perez MD [address] [place] [address] PCP - General Family Medicine 06/02/24 Zoraida Chavez NP [address] [place] [address] Nurse Practitioner Family Medicine 06/02/24 Swatch Clerk Relationship Specialty Start Date End Date Shen Perez MD [address] [place] [address] PCP - General Family Medicine 06/02/24 Zoraida Chavez NP [address] [place] [address] Nurse Practitioner Family Medicine 06/02/24 Swatch Clerk Relationship Specialty Start Date End Date Shen Perez MD [address] [place] [address] PCP - General Family Medicine 06/02/24 Zoraida Chavez NP [address] [place] [address] Nurse Practitioner Family Medicine 06/02/24 Swatch Clerk Relationship Specialty Start Date End Date Shen Perez MD [address] [place] [address] PCP - General Family Medicine 06/02/24 Zoraida Chavez NP [address] [place] [address] Nurse Practitioner Family Medicine 06/02/24 Swatch Clerk Relationship Specialty Start Date End Date Shaikh Carlos MD [address] [place] [address] PCP - General Internal Medicine 02/27/23 Swatch Clerk Relationship Specialty Start Date End Date Shen Perez MD [address] [place] [address] PCP - General Family Medicine 06/02/24 Zoraida Chavez NP [address] [place] [address] Nurse Practitioner Family Medicine 06/02/24 Swatch Clerk Relationship Specialty Start Date End Date Shen Perez MD [address] [place] [address] PCP - General Family Medicine 06/02/24 Zoraida Chavez NP [address] [place] [address] Nurse Practitioner Family Medicine 06/02/24 Swatch Clerk Relationship Specialty Start Date End Date Shen Perez MD [address] [place] [phone] PCP - General Family Medicine 06/02/24 Zoraida Chavez NP [address] [place] [address] Nurse Practitioner Family Medicine 06/02/24 Swatch Clerk Relationship Specialty Start Date End Date Shen Perez MD [address] [place] [address] PCP - General Family Medicine 06/02/24 Zoraida Chavez NP [address] [place] [address] Nurse Practitioner Family Medicine 06/02/24 Swatch Clerk Relationship Specialty Start Date End Date Shen Perez MD [address] [place] [address] PCP - General Family Medicine 06/02/24 Zoraida Chavez NP [address] [place] [address] Nurse Practitioner Family Medicine 06/02/24 Swatch Clerk Relationship Specialty Start Date End Date Shen Perez MD [address] [place] [address] PCP - General Family Medicine 06/02/24 Zoraida Chavez NP [address] [place] [address] Nurse Practitioner Family Medicine 06/02/24 Swatch Clerk Relationship Specialty Start Date End Date Shen Perez MD [address] [place] [address] PCP - General Family Medicine 06/02/24 Zoraida Chavez NP [address] [place] [address] Nurse Practitioner Family Medicine 06/02/24 Swatch Clerk Relationship Specialty Start Date End Date Shen Perez MD [address] [place] [phone] PCP - General Family Medicine 06/02/24 Zoraida Chavez NP [address] [place] [address] Nurse Practitioner Family Medicine 06/02/24 Swatch Clerk Relationship Specialty Start Date End Date Shen Perez MD [address] [place] [phone] PCP - General Family Medicine 06/02/24 Zoraida Chavez NP [address] [place] [address] Nurse Practitioner Family Medicine 06/02/24 Swatch Clerk Relationship Specialty Start Date End Date Shen Perez MD [address] [place] [phone] PCP - General Family Medicine 06/02/24 Zoraida Chavez NP [address] [place] [address] Nurse Practitioner Family Medicine 06/02/24 Swatch Clerk Relationship Specialty Start Date End Date Shen Perez MD [address] [place] [address] PCP - General Family Medicine 06/02/24 Zoraida Chavez NP [address] [place], [place] [phone] Nurse Practitioner Family Medicine 06/02/24 Swatch Clerk Relationship Specialty Start Date End Date Shen Perez MD [address] [place] [phone] PCP - General Family Medicine 06/02/24 Zoraida Chavez NP [address] [place], [place] [phone] Nurse Practitioner Family Medicine 06/02/24 Swatch Clerk Relationship Specialty Start Date End Date Shen Perez MD [address] [place], [phone] PCP - General Family Medicine 06/02/24 Zoraida Chavez NP [address] [place], [place] [phone] Nurse Practitioner Family Medicine 06/02/24 Team Status: Inactive Member Role Status Dates Drew Hirsch MD Attending Provider Active St art: April 14, 2025 End: April 14, 2025 Swatch Clerk Relationship Specialty Start Date End Date Shen Perez MD [address] [place] [phone] PCP - General Family Medicine 06/02/24 Zoraida Chavez NP [address] [place] [address] Nurse Practitioner Family Medicine 06/02/24 Swatch Clerk Relationship Specialty Start Date End Date Shen Perez MD [address] [place] [address] PCP - General Family Medicine 06/02/24 Zoraida Chavez NP [address] [place] [address] Nurse Practitioner Family Medicine 06/02/24 Team Status: Active Member Role Status Dates ANASTACIO Parekh Primary Care Provider Active Team Status: Active Member Role Status Dates Clinton Marr DO Attending Provider Active S tart: June 03, 2025 Team Status: Inactive Member Role Status Dates ANASTACIO Parekh Primary Care Provider Active Start: June 07, 2025 End: June 07, 2025 ANASTACIO Parekh Attending Provider Active Start: June 07, 2025 End: June 07, 2025 Goals (unrecognized section and content) Goals may [...] BE BASED ON THE PRIMARY CLINICAL RECORDS. [employer] [facility]. provides no warranty or guarantee of the accuracy or completeness of information in this document.
[2025-06-10 14:44] LABS: Hematocrit 40.8 % (42.0-54.0); Hemoglobin 13.6 g/dL (14.0-18.0); Immature Granulocytes Abs Auto 0.02 10^3/uL (0.00-0.03); Immature Granulocytes Pct Auto 0.2 % (0.0-0.5); Lymphocytes Absolute Auto 1.6 10^3/uL (1.2-3.8); Mean Corpuscular HGB Conc 33.3 g/dL (29.9-35.2); Mean Corpuscular Hemoglobin 29.5 pg (25.9-34.0); Mean Corpuscular Volume 88.5 fL (80.0-94.0); Platelet Count 265 10^3/uL (150-450); Red Blood Count 4.61 10^6/uL (4.70-6.10); White Blood Count 10.1 10^3/uL (4.0-11.0)
== END 2025-06-10 14:29 | disposition home or self-care (01) ==
LOC: LAB 14:29
PROVIDERS: PCP Nurse Practitioner; Visit Provider Nurse Practitioner
DX: D72.810 Lymphocytopenia (principal)
CPT/HCPCS: 36415; 85025

== ENCOUNTER 2025-06-16 12:57 | Outpatient (OUT) | payer OTHER, SELFPAY ==
--- OUTSIDE RECORDS SUMMARY | 2025-06-16 13:03 | XMS_ITS | CCD ---
Author Organization [facility] Inform ion [facility] Care Team Providers Care French Instructor Name Role Phone SHAIKH Best CARLOS Admitting Unavailable SHAIKH Best CARLOS Attending Unavailable SHAIKH Best CARLOS Primary Care Unavailable SHAIKH Best CARLOS Consulting Unavailable SHAIKH CARLOS Primary Care Physician [phone] Shen Perez MD Primary Care Provider Scott MEDICAL ATTENDANT, Zoraida Unavailable Shaikh Carlos MD Primary Care Provider [phone] Scott MEDICAL ATTENDANT, Zoraida Unavailable [phone] SHAIKH CARLOS Attending Unavailable APLING, BARBARA Cuenca Attending Unavailable APLING, BARBARA Cuenca Attending Unavailable APLKEELEY, BARBARA Cuenca Attending Unavailable APLKEELEY, BARBARA Cuenca Attending Unavailable ZORAIDA CHAVEZ Attending UnavailSOPHIE Garcia Attending Unavailable Drew Hirsch MD Attending Provider Drew Hirsch Attending Unavailable Drew Hirsch Admitting Unavailable SOPHIE DELAROSA Primary Care Physician Drew HIRSCH Attending Unavailable Drew HIRSCH Attending Unavailable Drew HIRSCH Attending Unavailable Drew HIRSCH Attending Unavailable Drew HIRSCH Attending Unavailable Drew HIRSCH Attending Unavailable Drew HIRSCH Attending Unavailable Drew HIRSCH Attending Unavailable SOPHIE DELAROSA Referring Unavailable Clinton Marr DO Attending Provider [place] MEDICAL ATTENDANT-C, Sophie Retana Primary Care Provider [phone] AichholSophie Rick Attending Provider MISAEL REYES Attending Unavailable MISAEL REYES Attending Unavailable Allergies Allergy Classification Reported Allergen(s) Allergy Type Date of Onset Reaction(s) Facility (1 source) No Known Medication Allergies; Translations: [No Known Medication Allergies] Propensity to adverse reactions (disorder) [facility] Repository Medications Current Medications Medication Drug Class(es) [...] Daily, # 90 cap(s), Refills(s) 3, Pharmacy: [facility], 192, cm, 01/03/25 12:43:00 [...] procedure, # 2 tab(s), Refills(s) 0, Pharmacy: [facility], 192, cm, 01/03/25 12:43:00 [...] 40 mg/ml injection (4 sources) Corticosteroid Start: End: methylPREDNISolone acetate (DEPO-Medrol) injection 40 mg [...] hypertrophy with outflow obstruction] Onset: 06-28-2022 Chronic Nonspecific chest pain (3 sources) Precordial pain; Translations: [Precordial pain] Onset: 12-10-2019 12-10-2019 Episodic Nutritional deficiencies (6 sources) Iron deficiency; Translations: [Iron deficiency] 06-21-2024 Episodic Osteoarthritis (6 sources) Arthritis; Translations: [Arthritis of left knee] 2023 Chronic Other aftercare (4 sources) Long-term current use of anticoagulant; Translations: [manager long term care (current) use of anticoagulants] Onset: 2023 Episodic [...] Unclassified (4 sources) Patient encounter status 2023 Unclassified (2 sources) 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 Onset: 06-10-2025 Past or Other Problems Problem Classification Problem Date Documented Da te Episodic/Chronic Deficiency and other anemia (1 source) Anemia; Translations: [Anemia, unspecified] 09-03-2023 Episodic Other male genital disorders (20 sources) Swelling of testicle; Translations: [Other specified disorders of the male genital organs] Onset: 12-13-2024 Resolved: 12-13-2024 12-13-2024 Episodic Results Test Name Value Interpretation Reference Range Facility Basophils Auto (Bld) [#/Vol] Ordered By: Clinton Marr on 06-03-2025 Basophils (Bld) [#/Vol] 0.1 10 3/uL 0.0-0.1 [facility] Basophils/100 WBC Auto (Bld) Ordered By: Clinton Marr on 06-03-2025 Basophils/100 WBC (Bld) 0.8 % 0.2-2.0 [facility] Eosinophils/100 WBC Auto (Bl d)Ordered By: Clinton Marr on 06-03-2025 Eosinophils/100 WBC (Bld) 2.7 % 0.9-7.0 [facility] Erythrocyte distribution wid th Auto (RBC) [Ratio]Ordered By: Clinton Marr on 06-03-2025 Erythrocyte distribution width (RBC) [Ratio] 14.0 % 11.0-15.0 [facility] Glomerular filtration rate ( GFR) estimation in non- AmericanOrdered By: Clinton Marr on 06-03-2025 GFR/1.73 sq M.predicted among non-blacks MDRD (S/P/Bld) [Vol rate/Area] mL/min/{1.73_m2} >=60 mL/min/1.73m 2 [facility] Hematocrit Auto (Bld) [Volum e fraction]Ordered By: Clinton Marr on 06-03-2025 Hematocrit (Bld) [Volume fraction] 40.9 % Low 42.0-54.0 [facility] Hemoglobin [Mass/volume] in BloodOrdered By: Clinton Marr on 06-03-2025 Hemoglobin (Bld) [Mass/Vol] 13.8 g/dL Low 14.0-18.0 [facility] Laboratory - Chemistry and C hemistry - challengeOrdered By: Clinton Marr on 06-03-2025 Calcium [Mass/Vol] 9.2 mg/dL 8.5-10.1 [facility] Chloride [Moles/Vol] 105 mmol/L 98-107 [facility] CO2 [Moles/Vol] 26.9 mmol/L 21.0-32.0 [facility] Creatinine [Mass/Vol] 0.83 mg/dL 0.70-1.30 [facility] GFR/1.73 sq M.predicted MDRD (S/P/Bld) [Vol rate/Area] mL/min/{1.73_m2} >=60 mL/min/1.73m 2 [facility] Glucose [Mass/Vol] 85 mg/dL 74-106 [facility] Potassium [Moles/Vol] 3.6 mmol/L 3.5-5.1 [facility] Sodium [Moles/Vol] 138 mmol/L 136-145 [facility] Urea nitrogen [Mass/Vol] 24.0 mg/dL High 7.0-18.0 [facility] Urea nitrogen/Creatinine [Mass ratio] 28.9 mg/mg [facility] Laboratory - Hematology and Cell countsOrdered By: Clinton Marr on 06-03-2025 Immature granulocytes/100 WBC (Bld) 0.2 % 0.0-0.5 [facility] Leukocytes [#/volume] correc jackie for nucleated erythrocytes in Blood by Automated counOrdered By: Clinton Marr on 06-03-2025 WBC corrected for nucl RBC Auto (Bld) [#/Vol] 10.8 10 3/uL 4.0-11.0 [facility] Lymphocytes Auto (Bld) [#/Vo l]Ordered By: Clinton Marr on 06-03-2025 Lymphocytes (Bld) [#/Vol] 1.4 10 3/uL 1.2-3.8 [facility] Lymphocytes/100 WBC Auto (Bl d)Ordered By: Clinton Marr on 06-03-2025 Lymphocytes/100 WBC (Bld) 13.1 % Low 20.5-60.0 [facility] MCH Auto (RBC) [Entitic mass ]Ordered By: Clinton Marr on 06-03-2025 MCH (RBC) [Entitic mass] 29.6 pg 25.9-34.0 [facility] MCHC Auto (RBC) [Mass/Vol]Or dered By: Clinton Marr on 06-03-2025 MCHC (RBC) [Mass/Vol] 33.7 g/dL 29.9-35.2 [facility] MCV Auto (RBC) [Entitic vol] Ordered By: Clinton Marr on 06-03-2025 MCV (RBC) [Entitic vol] 87.6 fL 80.0-94.0 [facility] Monocytes Auto (Bld) [#/Vol] Ordered By: Clinton Marr on 06-03-2025 Monocytes (Bld) [#/Vol] 0.8 10 3/uL 0.3-0.8 [facility] Monocytes/100 WBC Auto (Bld) Ordered By: Clinton Marr on 06-03-2025 Monocytes/100 WBC (Bld) 7.8 % 1.7-12.0 [facility] Neutrophils Auto (Bld) [#/Vo l]Ordered By: Clinton Marr on 06-03-2025 Neutrophils (Bld) [#/Vol] 8.1 10 3/uL High 1.4-6.5 [facility] Neutrophils/100 WBC Auto (Bl d)Ordered By: Clinton Marr on 06-03-2025 Neutrophils/100 WBC (Bld) 75.4 % High 43.0-75.0 [facility] No Panel InformationOrdered By: Clinton Marr on 06-03-2025 Troponin I High Sensitivity 8.0 pg/mL 4.0-76.1 [facility] Comment on above: CUT-OFF POINTS HAVE BEEN [...] Eosinophils # (Auto) 0.3 10 3/uL 0.0-0.7 [facility] Immature Granulocyte # (Auto) 0.02 10 3/uL 0.00-0.03 [facility] Platelet mean volume Auto (B ld) [Entitic vol]Ordered By: Clinton Marr on 06-03-2025 Platelet mean volume (Bld) [Entitic vol] 10.0 fL 9.5-13.5 [facility] Platelets Auto (Bld) [#/Vol] Ordered By: Clinton Marr on 06-03-2025 Platelets (Bld) [#/Vol] 285 10 3/uL 150-450 [facility] RBC Auto (Bld) [#/Vol]Ordere d By: Clinton Marr on 06-03-2025 RBC (Bld) [#/Vol] 4.67 10 6/uL Low 4.70-6.10 [facility] Serum or plasma anion gap de terminationOrdered By: Clinton Marr on 06-03-2025 Anion gap [Moles/Vol] 9.7 mmol/L [facility] Ambulatory Visit Summaryon 0 05-13-2025 Ambulatory [...] Drew HIRSCH MD Where: [facility] [address] [id number] 8:30 AM EST With: Drew HIRSCH MD Where: [facility] [address] [id number]- You Need to Schedule the Following Appointments Follow Up with Drew HIRSCH MD, URL When: Comments: 6 mos Where: [address] [place] [address] [place] [address] Medications What How Much When Why Instructions [...] these instructions at home: Medicines ??? Take mqdy-mgt-iwbbhil and prescription medicines only as told by your health care provider. ??? Ask your health care provider if the medicine prescribed to you: ? Requires you to avoid driving or using machinery. ? Can cause constipation. You may need to take these actions to prevent or treat constipation: ? Drink enough fluid to keep your urine pale yellow. ? Take zjuj-jyp-xgemtvu or prescription medicines. ? Eat foods that are high in fiber, such as beans, whole grains, and fresh fruits and vegetables. ? Limit foods that are high in fat and processed sugars, such as fried or sweet foods. Bathing ??? Do not take baths, swim, or use a hot tub until your health care provider approves. A (more content not included)... Normal [facility] Urology Office/Clinic Noteon 05-13-2025 Urology Office/Clinic [...] changes -Restart Flomax bid 3. Anticoagulated (Z79.01: manager long term care (current) use of anticoagulants) Plavix. [1] Follow-up With When Contact Information BETO WEAVER, Drew Painting, URL [address] [place] [address] [place] [address] Additional Instructions: 6 mos Patient Education Hydrocelectomy, Adult, Care After ISherry, personally scribed for Dr. Hirsch on 05/13/2025 09:35:50. . Documentation recorded by the scribe, Sherry [...] virus vaccine (more content not included)... Normal [facility] Comment on above: Result Comment: Elec tronically Signed By: Drew HIRSCH MD\Moustaphabr\Date and Time Signed: 05/13/25 09:40 EDT\.br\Electronically Co-Signed By: Sherry Fitzpatrick\Date and Time Co-Signed: 05/13/25 09:36 EDT Benedicto 04-14-2025 L -- ---- Specimen: [id number] Received: 04/14/25 Status: EVELINE Fuller Num: [id number] Spec Type: Surgical Subm Dr: Drew Hirsch MD Tissues: A Hydrocele Sac (LEFT HYDROCELE SAC) Procedures: Anneliese VELEZ/[place] L2 ---- Age/ Patient Sex Location Account Attending Physician ---- Marti Morgan/M LABELL [id number] Drew Hirsch MD ---- SPEC NUM: [id number] RECD: 04/14/25 STATUS: EVELINE FULLER NUM: [id number] ARIELA: 04/14/[address]: Drew Hirsch MD ENTERED: 04/14/[address] [facility] [address]: Odette Case SPEC TYPE: Surgical DEPT: [facility] [place] ENTERED BY: [id number] RECV BY: [id number] ORDERED: ROSIE, Gross/Micro L2 ORDERED: ROSIE, Gross/Micro L2 Pathological Diagnosis Left hydrocele sac, [...] to pink, glistening, and uniform cut surfaces. Hand Suture Winder sections are submitted in a single cassette. (1, , [id number] A) Microscopic Description Microscopic examination is performed. CPT Codes 51427 ---- ---- Specimen: [id number] Received: 04/14/25 Status: EVELINE Jonny Num: [id number] Spec Type: Surgical Subm Dr: Drew Hirsch MD Tissues: A Hydrocele Sac (LEFT HYDROCELE SAC) Procedures: ROSIE Gross/Micro L2 ---- Patient: Marti Morgna [id number] (Continued) ---- Signed (signature on file) Luis M Ruth MD 04/18/25 1354 Normal [facility] HbA1c (Bld) [Mass fraction]o n 04-12-2025 Interpretation and review of laboratory results Abnormal [facility] Laboratory - Hematology and Cell countson 04-12-2025 HbA1c (Bld) [Mass fraction] 6.3 % [facility] Healthcare Provider Letteron 04-11-2025 Provider Letter Provider Letter April 11, 2025 MARTI [address]DIE [address] [place] [address] : 1955 To Whom It May Concern, Please excuse above patient from work. Date of Illness: From: 04/14/25 To: 04/24/25 May Return to Work On: 04/25/25 Restrictions: Patient may return to work 04/25/25 with no heavy lifting over 20 pounds x 3 weeks until 05/16/25 Comments: Patient is having a surgical procedure on 04/14/25 Sincerely, Drew Hirsch M.D., F.A.C.S. [facility] [address] [place] [address] [place]ille [place], [place] [address] , option #3 Normal [facility] Documentationon 03-29-2025 Documentation [id number] Kali Morgan 1955 [facility] Provider Department [place] 03/29/2025 [id number] ROA [facility] CARD [facility] HeartVAS Family History Problem Relation Age of Onset Heart attack Father Coronary artery disease Father Other Father Coronary artery disease Maternal Grandfather Other Maternal Grandfather Family Status - Relation Status Age at Father Maternal Grandfather Normal [facility] Orders Onlyon 03-28-2025 Orders Only [id number] Kali Morgan 1955 M Date Provider Department Center 03/28/2025 [id number], HISTORICAL CARD [place] [facility] Family History Problem Relation Age of Onset Heart attack Father Coronary artery disease Father Other Father Coronary artery disease Maternal Grandfather Other Maternal Grandfather Family Status - Relation Status Age at Father Maternal Grandfather Normal [facility] CA ECHO DOPPLER COMPLETEon 0 03-26-2025 [place] [address] Cardiology Report Signed Patient: MARTI MORGAN MR#: [id number] : 1955 Acct:[id number] Age/Sex: 69 / M ADM Date: 03/24/25 Loc: CARD Attending Dr: Misael Reyes M.D. Ordering Physician: Misael Reyes M.D. Date of Service: 03/24/25 Procedure(s): CA echo doppler complete Accession Number(s): [id number] cc: Sophie Delarosa MEDICAL ATTENDANT; Misael Reyes M.D. Patient Name: MARTI MORGAN MR#: [id number] : 1955 Exam Date: 03/24/2025 Ordering Doctor: [...] Reyes MD on (more content not included)... [facility] Radiology, Radiologist, MD - 03/26/2025 [place] [address] Cardiology Report Signed Patient: MARTI MORGAN MR#: [id number] : 1955 Acct:[id number] Age/Sex: 69 / M ADM Date: 03/24/25 Loc: CARD Attending Dr: Misael Reyes M.D. Ordering Physician: Misael Reyes M.D. Date of Service: 03/24/25 Procedure(s): CA echo doppler complete Accession Number(s): [id number] cc: Sophie Delarosa MEDICAL ATTENDANT; Misael Reyes M.D. Patient Name: MARTI MORGAN MR#: [id number] : 1955 Exam Date: 03/24/2025 Ordering Doctor: [...] M.D. Signed By: 03/26/251815 DD/ 14 TD/TT: Filer Repairer: [facility] Study observation (narrative) [facility] [employer] CA ECHO DOPPLER COMPLETEOrde red By: Radiologist Radiology on 03-26-2025 [place] [employer] Work Phone: Office Visiton 03-18-2025 Follow-up visit [id number] Kali Morgan 1955 M Date Provider Department Center 03/18/2025 [id number] REYES [facility] Family History Problem Relation Age of Onset Heart attack Father Coronary artery disease Father Other Father Coronary artery disease Maternal Grandfather Other Maternal Grandfather Family Status - Relation Status Age at Father Maternal Grandfather Level of Service:04358 AL OFFICE/OUTPATIENT ESTABLISHED MOD MDM 30 MIN Reason for Visit and Comments: Abnormal ECG [293] - Performed a few days ago, with labs Pre-op Exam [135490] - Had stress test and echo at [facility] in 2021 s/p Covid-19 infection. Patient denies chest pain, SOB, and palpitations. He will be scheduled for hydrocele procedure with Dr. Hirsch. Hypertension [719136] Hyperlipidemia [182] Transient Ischemic Attack [793790] - Hx of TIA, formerly on Plavix. [facility] Orders Onlyon 03-18-2025 Orders Only [id number] Kali Morgan 1955 M Date Provider Department Center 03/18/2025 [id number], HISTORICAL [facility] Family History Problem Relation Age of Onset Heart attack Father Coronary artery disease Father Other Father Coronary artery disease Maternal Grandfather Other Maternal Grandfather Family Status - Relation Status Age at Father Maternal Grandfather [facility] ALL BASIC METABOLIC PANELon 03-14-2025 Anion gap [Moles/Vol] 11.7 mmol/L NO [facility] Calcium [Mass/Vol] 9.1 mg/dL 8.5 - 10. 1 mg/dL [facility] Chloride [Moles/Vol] 106 mmol/L 98 - 10 7 mmol/L [facility] CO2 [Moles/Vol] 30.7 mmol/L 21.0 - 32.0 mmol/L [facility] Creatinine [Mass/Vol] 0.69 mg/dL Low 0.70 - 1.30 mg/dL [facility] GFR/1.73 sq M.predicted CKD-EPI (S/P/Bld) [Vol rate/Area] >60 >=60 mL/min/1.73m 2 [facility] Glucose [Mass/Vol] 127 mg/dL High 74 - 106 mg/dL [facility] Interpretation and review of laboratory results [facility]normal [facility] Potassium [Moles/Vol] 4.4 mmol/L 3.5 - 5.1 mmol/L [facility] Sodium [Moles/Vol] 144 mmol/L 136 - 145 mmol/L [facility] TBH EGFR-NON AF BURUNDIAN >60 >=60 mL/min/1.73m 2 [facility] Urea nitrogen [Mass/Vol] 18 mg/dL 7.0 - 18.0 mg/dL [facility] Urea nitrogen/Creatinine [Mass ratio] 26.1 mg/mg [facility] ECG 12-LEADon 03-14-2025 [facility] [place] [address] [place] [address] Electrocardiograph Report Signed Patient: MARTI MORGAN MR#: [id number] : 1955 Acct:[id number] Age/Sex: 69 / M ADM Date: 03/14/25 Loc: PST Attending Dr: Drew Hirsch M.D. Ordering Physician: Drew Hirsch M.D. Date of Service: 03/14/25 Procedure(s): ECG 12 lead Accession Number(s): [id number] cc: [facility] Test Date: 2025-03-14 Pat Name: MARTI HARRINGTONP Department: Room: - Gender: Male Field Service Coordinator: : 1955 Requested By: DREW HIRSCH Order Number: [id number] Reading MD: MARTI MIKE M.D. Measurements Intervals Gordon Rate: 76 P: 153 AL: 195 QRS: -21 QRSD: 115 T: 150 [...] MIKE Signed By: 03/14/252030 DD/ 8 TD/TT: Filer Repairer: [facility] Radiology, Radiologist, MD - 03/14/2025 [place] [address] Electrocardiograph Report Signed Patient: MARTI MORGAN MR#: [id number] : 1955 Acct:[id number] Age/Sex: 69 / M ADM Date: 03/14/25 Loc: PST Attending Dr: Drew Hirsch M.D. Ordering Physician: Drew Hirsch M.D. Date of Service: 03/14/25 Procedure(s): ECG 12 lead Accession Number(s): [id number] cc: [facility] Test Date: 2025-03-14 Pat Name: MARTI [facility] Department: Room: - Gender: Male Field Service Coordinator: : 1955 Requested By: DREW HIRSCH Order Number: [id number] Reading MD: MARTI MIKE M.D. Measurements Intervals Gordon Rate: 76 P: 153 AL: 195 QRS: -21 QRSD: 115 T: 150 [...] MIKE Signed By: 03/14/252030 DD/ 8 TD/TT: Filer Repairer: [facility] Radiology Study observation (narrative) [facility] ECG 12-LEADOrdered By: Philo Mediat Radiology on 03-14-2025 [facility] [employer] Work Phone: Ambulatory Visit Summaryon 0 03-07-2025 Ambulatory Visit Summary Ambulatory Visit Summary EDDIEMARTI Saúl :1955 Visit Date:03/07/2025 Ambulatory Visit Instructions Your [...] Drew HIRSCH MD Where: [facility] [address] [place] [address]- You Need to Schedule the Following Appointments Follow Up with Drew HIRSCH MD, URL When: Comments: westley L hydrocelectomy Where: [facility] [address], [facility] [place] [phone] Medications What How Much When Why Instructions [...] these instructions at home: Medicines ??? Take erbe-wdt-zmzirnd and prescription medicines only as told by your health care provider. ??? Ask your health care provider if the medicine prescribed to you: ? Requires you to avoid driving or using machinery. ? Can cause constipation. You may need to take these actions to prevent or treat constipation: ? Drink enough fluid to keep your urine pale yellow. ? Take dlyc-qmv-postqii or prescription medicines. ? Eat foods that [...] bathe. Incis (more content not included)... Normal [facility] Ambulatory Visit Summary Ambulatory Visit Summary MARTI [...] Drew HIRSCH MD Where: [facility] [address] [place] [address]- You Need to Schedule the Following Appointments Follow Up with Drew HIRSCH MD, URL When: Comments: westley L hydrocelectomy Where: [facility] [address], [place] [phone] Medications What How Much When Why Instructions [...] these instructions at home: Medicines ??? Take kwnj-gnb-jbaucid and prescription medicines only as told by your health care provider. ??? Ask your health care provider if the medicine prescribed to you: ? Requires you to avoid driving or using machinery. ? Can cause constipation. You may need to take these actions to prevent or treat constipation: ? Drink enough fluid to keep your urine pale yellow. ? Take vuqx-ikf-arevkkz or prescription medicines. ? Eat foods that [...] bathe. Incis (more content not included)... Normal [facility] Provider Letteron 03-07-2025 Provider Letter Provider Letter March 07, 2025 MARTI MORGAN [address] [place] [address] : 1955 To Whom It May Concern, Please excuse above patient from work. Date of Illness: From: 03/17/25 To: 03/24/2025 May Return to Work On:03/25/25 Restrictions: No work 03/17/25- 03/24/25 Comments: Patient is having surgery on 03/17/25. No work 03/17/25- 03/24/25. He may return to work 03/25/25 with no heavy lifting over 10 lbs x 1 week. Sincerely, [facility] Normal [facility] Urology Office/Clinic Noteon 03-07-2025 Urology Office/Clinic [...] bid. Cont wo changes. 3. Anticoagulated (Z79.01: manager long term care (current) use of anticoagulants) Plavix. Follow-up With When Contact Information BETO WEAVER, Drew Painting, URL [facility] [address], [place] [phone] Additional Instructions: sched L hydrocelectomy Patient Education Hydrocelectomy, Adult, Care After Hydrocelectomy, Adult I, Sherry Fitzpatrick, personally scribed for Dr. Hirsch on 03/07/2025 15:22:21. . Documentation recorded by the scribeSherry, accurately [...] Recorded SARS-CoV-2 (more content not included)... Normal [facility] Comment on above: Result Comment: Elec tronically Signed By: Drew HIRSCH MD\.br\Date and Time Signed: 03/07/25 15:24 EDT\.br\Electronically Co-Signed By: Sherry Fitzpatrick\.br\Date and Time Co-Signed: 03/07/25 15:22 EDT [place] [address] Ultrasound Report Signed Patient: MARTI MORGAN MR#: [id number] : 1955 Acct:[id number] Age/Sex: 69 / M ADM Date: 02/09/25 Loc: US Attending Dr: Drew Hirsch M.D. Ordering Physician: Drew Hirsch M.D. Date of Service: 02/09/25 Procedure(s): US scrotum Accession Number(s): [id number] cc: Sophie Delarosa MEDICAL ATTENDANT; Drew Hirsch M.D. [address] [address] Patient Name: MARTI MORGAN MRN: [facility]:[id number] date: 1955 Sex: M Assigned Patient Location: US Current Patient Location: US Accession/Order Number: [id number] Exam Date: 02/09/2025 18:40 Report Date: 02/09/2025 [...] Rudolph M.D. 02/09/2025 6:42 PM Dictation Location: [place] [address] Electronically authenticated by: [id number] Y Date: 02/09/2025 18:42 Dictated By: Clinton Rudolph D.O. Signed By: 02/10/25 0950 DD/ 41 TD/TT: Filer Repairer: [facility] Radiology, Radiologist, - 02/10/2025 [place] [address] Ultrasound Report Signed Patient: MARTI MORGAN MR#: [id number] : 1955 Acct:[id number] Age/Sex: 69 / M ADM Date: 02/09/25 Loc: US Attending Dr: Drew Hirsch M.D. Ordering Physician: Drew Hirsch M.D. Date of Service: 02/09/25 Procedure(s): US scrotum Accession Number(s): [id number] cc: Sophie Delarosa MEDICAL ATTENDANT; Drew Hirsch M.D. The [address] [address] Patient Name: MARTI MORGAN MRN: [id number] date: 1955 Sex: M Assigned Patient Location: US Current Patient Location: [place] Accession/Order Number: [id number] Exam Date: 02/09/2025 18:40 Report Date: 02/09/2025 [...] Rudolph M.D. 02/09/2025 6:42 PM Dictation Location: [place] [address] Electronically authenticated by: [id number] Y Date: 02/09/2025 18:42 Dictated By: Clinton Rudolph D.O. Signed By: 02/10/25 0950 DD/ 184 TD/TT: Filer Repairer: [facility] US Scrotum and testicleOrder ed By: Radiologist Radiology on 02-10-2025 [facility] Work Phone: US Scrotum and testicleon Radiology Study observation (narrative) [facility] Ambulatory Visit Summaryon 0 01-25-2025 Ambulatory Visit Summary Ambulatory Visit Summary MARTI MORGAN :1955 Visit Date:01/25/2025 Ambulatory Visit Instructions Your Diagnosis BPH with urinary obstruction Feeling of incomplete bladder emptying Hydrocele Anticoagulated Your Care Team Attending Physician - BETO WEAVER, Drew Painting Primary Care Physician - BREANNA WEAVER, ROSAS This Is Your Medications List ciprofloxacin (Cipro [...] Drew HIRSCH MD Where: [facility] [address] [place] [address]- You Need to Schedule the Following Appointments Follow Up with Drew HIRSCH MD, URL When: Where: [facility] [address], [place] [address]- Medications What How Much When Why Instructions [...] older t (more content not included)... Normal [facility] Urology Office/Clinic Noteon 01-25-2025 Urology Office/Clinic Note Urology Office/Clinic Note Chief Complaint cysto HPI Staff Cysto. Abx taken History of Present Illness Tests reviewed: I have reviewed the previous health record information and history for this patient from Dr. Hircsh. I have reviewed and verified the staff [...] or torsion. -Cont monitoring 4. Anticoagulated (Z79.01: manager long term care (current) use of anticoagulants) Plavix. Follow-up With When Contact Information BETO WEAVER, Drew Painting, URL [facility] [address], [place] [address]- Additional Instructions: 5 mos Patient Education Benign [...] (COVID-19) [email or web address].ORD! (more content not included)... Normal [facility] Comment on above: Result Comment: Elec tronically [...] URL When: Where: [facility] [address] , [place] [phone] Medications What How Much When Why Instructions New ciprofloxacin (Cipro 500 mg Tab) 1 Tablets By Mouth Every day take one tab day before procedure and one tab after procedure Pickup at [facility] 1425 New dutasteride (dutasteride 0.5 mg Cap) 1 Capsules By Mouth Every day BPH with urinary obstruction Refills: 3 Pickup at [facility] 1429 Unchanged tamsulosin (tamsulosin 0.4 mg Cap) [...] physician if questions or concerns Pharmacy Information [facility] 1429: [address] [place], [place] [id number] [phone] Allergies No Known Medication Allergies Problems Ongoing [...] including vitamins, herbs, eye drops, creams, and bapd-djq-xkstjbf medicines. ??? Any problems you or family members have had with anesthetic medicines. ??? Any blood disorders you have. ??? (more content not included)... Normal [facility] ALL CBC WITH AUTO DIFFon BASOPHILS ABSOLUTE AUTO 0.1 N [facility] Basophils/100 WBC (Bld) 0.8 % 0.2 - 2.0 % [facility] Eosinophils/100 WBC (Bld) 4.4 % 0.9 - 7.0 % [facility] Erythrocyte distribution width (RBC) [Ratio] 13.6 % 11.0 - 15.0 % [facility] Hematocrit (Bld) [Volume fraction] 41.9 % Low 42.0 - 54.0 % [facility] Hemoglobin (Bld) [Mass/Vol] 14 g/dL 14.0 - 18.0 g/dL [facility] IMMATURE GRANULOCYTES ABS AUTO 0.02 [facility] Immature granulocytes/100 WBC (Bld) 0.2 % 0.0 - 0.5 % [facility] Interpretation and review of laboratory results Abnormal [facility] LYMPHOCYTES ABSOLUTE AUTO 1.2 [facility] Lymphocytes/100 WBC (Bld) 14.4 % Low 20.5 - 60.0 % [facility] MCH (RBC) [Entitic mass] 29.4 pg 25.9 - 34.0 pg [facility] MCHC (RBC) [Mass/Vol] 33.4 g/dL 29.9 - 35.2 g/dL [facility] MCV (RBC) [Entitic vol] 87.8 fL 80.0 - 94.0 fL [facility] MONOCYTES ABSOLUTE AUTO 0.6 N [facility] Monocytes/100 WBC (Bld) 7.2 % 1.7 - 12.0 % [facility] NEUTROPHILS ABSOLUTE AUTO 6.1 [facility] Neutrophils/100 WBC (Bld) 73 % 43.0 - 75.0 % [facility] Platelet mean volume (Bld) [Entitic vol] 9.4 fL Low 9.5 - 13.5 fL [facility] TBH EO # 0.4 [facility]H PLT 279 [facility] TBH RBC 4.77 [facility] TB WBC 8.4 [facility] [place] [address] Ultrasound Report Signed Patient: MARTI MORGAN MR#: [id number] : 1955 Acct:[id number] Age/Sex: 69 / M ADM Date: 12/14/24 Loc: US Attending Dr: Sophie Delarosa NP Ordering Physician: Sophie Delarosa NP Date of Service: 12/14/24 Procedure(s): US scrotum Accession Number(s): [id number] cc: Sophie Delarosa NP [place] [id number] Patient Name: MARTI MORGAN MRN: [facility]:[id number] date: 1955 Sex: M Assigned Patient Location: US Current Patient Location: US Accession/Order Number: [id number] Exam Date: 12/14/2024 20:49 Report Date: 12/14/2024 [...] Rosemary Em M.D.12/14/2024 8:59 PM Dictation Location: [place] [address] Electronically authenticated by: [id number] Y Date: 12/14/2024 20:59 Dictated By: Rosemary Em M.D. Signed By: 12/14/242101 DD/ 58 TD/TT: Filer Repairer: [facility] Radiology, Radiologist, MD - 12/14/2024 [place] [address] Ultrasound Report Signed Patient: MARTI MORGAN MR#: [id number] : 1955 Acct:[id number] Age/Sex: 69 / M ADM Date: 12/14/24 Loc: US Attending Dr: Sophie Delarosa NP Ordering Physician: Sophie Delarosa NP Date of Service: 12/14/24 Procedure(s): US scrotum Accession Number(s): [id number] cc: Sophie Delarosa NP [place] [phone] Patient Name: MARTI MORGAN MRN: [facility]:[id number] date: 1955 Sex: M Assigned Patient Location: US Current Patient Location: US Accession/Order Number: [id number] Exam Date: 12/14/2024 20:49 Report Date: 12/14/2024 [...] Rosemary Em M.D.12/14/2024 8:59 PM Dictation Location: [place] [address] Electronically authenticated by: [id number] Y Date: 12/14/2024 20:59 Dictated By: Rosemary Em M.D. Signed By: 12/14/242101 DD/ 58 TD/TT: Filer Repairer: [facility] Radiology Study observation (narrative) [facility] US Scrotum and testicleOrder ed By: Radiologist Radiology on 12-14-2024 [facility] Work Phone: No Panel Informationon [...] discussed. Consent was given by the patient. [facility] CBC AUTO DIFFon 06-25-2022 BASO # 0.1 103/ul Normal 0.0-0.1 [facility] Comment on above: Performed By: #### C BC #### [facility] [address] [place] [address] [address] Renee Prado Basophils/100 WBC (Bld) 0.8 % Normal 0.2-2.0 [facility] Comment on above: Performed By: #### C BC #### [facility] [address] [place] [address] [address] Renee Prado EO # 0.3 103/ul Normal 0.0-0.7 [facility] Comment on above: Performed By: #### C BC #### [facility] [address] [place] [address] Dr. Renee Prado Eosinophils/100 WBC (Bld) 3.3 % Normal 0.9-7.0 [facility] Comment on above: Performed By: #### C BC #### [facility] [address] [place] [address] Dr. Renee Prado Erythrocyte distribution width (RBC) [Ratio] 13.9 % Normal 11.0-15.0 [facility] Comment on above: Performed By: #### C BC #### [facility] [address] [place] [address] Dr. Renee Prado Hematocrit (Bld) [Volume fraction] 41.9 % Critically low 42.0-54.0 [facility] Comment on above: Performed By: #### C BC #### [facility] [address] [place] [address] Dr. Renee Prado Hemoglobin (Bld) [Mass/Vol] 13.8 g/dL Critically low 14.0-18.0 [facility] Comment on above: Performed By: #### C BC #### [facility] [address] [place] [address] Dr. Renee Prado IG # 0.02 10e3/ul Normal 0.00-0.03 [facility] Comment on above: Performed By: #### C BC #### [facility] [address] [place] [address] Dr. Renee Prado IG % 0.2 % Normal 0.0-0.5 [facility] Comment on above: Performed By: #### C BC #### [facility] [address] [place] [address] Dr. Renee Prado LYMPH # 1.8 103/ul Normal 1.2-3.8 [facility] Comment on above: Performed By: #### C BC #### [facility] [address] [place] [address] Dr. Renee Prado Lymphocytes/100 WBC (Bld) 19.9 % Critically low 20.5-60.0 [facility] Comment on above: Performed By: #### C BC #### [facility] [address] [place] [address] Dr. Renee Prado MANUAL DIFF REQ NO Normal [facility] Comment on above: Performed By: #### C BC #### [facility] [address] [place] [address] Dr. Renee Prado MCH (RBC) [Entitic mass] 28.9 pg Normal 25.9-34.0 [facility] Comment on above: Performed By: #### C BC #### [facility] [address] [place] [address] Dr. Renee Prado MCHC (RBC) [Mass/Vol] 32.9 g/dL Normal 29.9-35.2 [facility] Comment on above: Performed By: #### C BC #### [facility] [address] [place] [address] Dr. Renee Prado MCV (RBC) [Entitic vol] 87.7 fL Normal 80.0-94.0 [facility] Comment on above: Performed By: #### C BC #### [facility] [address] [place] [address] Dr. Renee Prado MONO # 0.6 103/ul Normal 0.3-0.8 [facility] Comment on above: Performed By: #### C BC #### [facility] [address] [place] [address] Dr. Renee Prado Monocytes/100 WBC (Bld) 6.8 % Normal 1.7-12.0 [facility] Comment on above: Performed By: #### C BC #### [facility] [address] [place] [address] Dr. Renee Prado NEUT # 6.1 103/ul Normal 1.4-6.5 [facility] Comment on above: Performed By: #### C BC #### [facility] [address] [place] [address] Dr. Renee Prado Neutrophils/100 WBC (Bld) 69.0 % Normal 43.0-75.0 [facility] Comment on above: Performed By: #### C BC #### [facility] [address] [place] [address] Dr. Renee Prado Platelet mean volume (Bld) [Entitic vol] 9.4 fL Critically low 9.5-13.5 [facility] Comment on above: Performed By: #### C BC #### [facility] [address] [place] [address] Dr. Renee Prado PLT 269 103/ul Normal 150-450 [facility] Comment on above: Performed By: #### C BC #### [facility] [address] [place] [address] Dr. Renee Prado RBC 4.78 106/ul Normal 4.70-6.10 [facility] Comment on above: Performed By: #### C BC #### [facility] [address] [place] [address] Dr. Renee Prado WBC 8.9 103/ul Normal 4.0-11.0 [facility] Comment on above: Performed By: #### C BC #### [facility] [address] [place] [address] Dr. Renee Prado CREATININE URINEon URINE CREAT 51.03 mg/dL Normal 20.00-300.00 [facility] Comment on above: Performed By: #### C REAU #### [facility] [address] [place] [address] Dr. Renee Prado GLYCOHEMOGLOBIN A1Con 2021 ADA RECOMMENDATION SEE BELOW Normal [facility] Comment on above: Result Comment: ADA RECOMMENDED LIMIT 4.0 - 6.0 ADA THERAPEUTIC TARGET < 7.0 ACTION SUGGESTED > 7.0 Performed By: #### A 1C #### [facility] [address] [place] [address] [address] Renee Prado Glucose [Mass/Vol] 128 mg/dL Normal [facility] Comment on above: Performed By: #### A 1C #### [facility] [address] [place] [address] [address] Renee Prado HbA1c (Bld) [Mass fraction] 6.1 % Normal 4.5-6.2 [facility] Comment on above: Performed By: #### A 1C #### [facility] [address] [place] [address] [address] Renee Prado LIPID PROFILEon 06-25-2022 CHOL-HDL RATIO NORM SEE BELOW Normal [facility] Comment on above: Result Comment: 3.3 - 4.4 LOW RISK 4.4 - 7.1 AVERAGE RISK 7.1 - 11.0 MODERATE RISK >11.0 HIGH RISK Performed By: #### C MP, LIPID #### [facility] [address] [place] [address] Dr. Renee Prado Cholesterol [Mass/Vol] 158 mg/dL Normal <=200 [facility] Comment on above: Performed By: #### C MP, LIPID #### [facility] [address] [place] [address] Dr. Renee Prado Cholesterol in HDL [Mass/Vol] 51 mg/dL Normal 40-60 [facility] Comment on above: Performed By: #### C MP, LIPID #### [facility] [address] [place] [address] [address] Renee Prado Cholesterol in LDL [Mass/Vol] 92.6 mg/dL Normal [facility] Comment on above: Performed By: #### C MP, LIPID #### [facility] [address] [place] [address] [address] Renee Prado Cholesterol.total/Shannan sterol in HDL [Mass ratio] 3.1 {ratio} Normal [facility] Comment on above: Performed By: #### C MP, LIPID #### [facility] [address] [place] [address] [address] Renee Prado HDL NORMAL > or = 60 mg/dl - LO W CARDIOVASCULAR RISK <40 mg/dl - HIGH CARDIOVASCULAR RISK Normal [facility] Comment on above: Performed By: #### C MP, LIPID #### [facility] [address] [place] [address] [address] Renee Prado LDL CALC NORMAL SEE BELOW Normal [facility] Comment on above: Result Comment: <100 mg/dl OPTIMAL 100 - 129 mg/dl NEAR OR ABOVE OPTIMAL 130 - 159 mg/dl BORDERLINE HIGH 160 - 189 mg/dl HIGH >190 mg/dl VERY HIGH Performed By: #### C MP, LIPID #### [facility] [address] [place] [address] [address] Renee Prado Triglyceride [Mass/Vol] 72 mg/dL Normal <=150 T [facility] Comment on above: Performed By: #### C MP, LIPID #### [facility] [address] [place] [address] [address] Renee Prado VLDL CALC 14.4 mg/dL Normal [facility] Comment on above: Performed By: #### C MP, LIPID #### [facility] [address] [place] [address] Dr. Renee Prado MICROALBUMIN, RAND URon 10- mALB <0.5 Normal <=30.0 [facility] Comment on above: Performed By: #### M ALBR #### [facility] [address] [place] [address] Dr. Renee Prado PROF 14(COMP METB)on 022 Albumin [Mass/Vol] 4.0 g/dL Normal 3.4-5.0 [facility] Comment on above: Performed By: #### C MP, LIPID #### [facility] [address] [place] [address] [address] Renee Prado Albumin/Globulin [Mass ratio] 1.3 {ratio} Normal [facility] Comment on above: Performed By: #### C MP, LIPID #### [facility] [address] [place] [address] [address] Renee Prado ALP [Catalytic activity/Vol] 40 U/L Critically low 46-116 [facility] Comment on above: Performed By: #### C MP, LIPID #### [facility] [address] [place] [address] [address] Renee Prado ALT [Catalytic activity/Vol] 29 U/L Normal 16-63 [facility] Comment on above: Performed By: #### C MP, LIPID #### [facility] [address] [place] [address] [address] Renee Prado Anion gap [Moles/Vol] 8.4 mmol/L Normal [facility] Comment on above: Performed By: #### C MP, LIPID #### [facility] [address] [place] [address] [address] Renee Prado AST [Catalytic activity/Vol] 16 U/L Normal 15-37 [facility] Comment on above: Performed By: #### C MP, LIPID #### [facility] [address] [place] [address] [address] Renee Prado Bilirubin [Mass/Vol] 0.5 mg/dL Normal 0.2-1.0 [facility] Comment on above: Performed By: #### C MP, LIPID #### [facility] [address] [place] [address] [address] Renee Prado Calcium [Mass/Vol] 9.4 mg/dL Normal 8.5-10.1 [facility] Comment on above: Performed By: #### C MP, LIPID #### [facility] [address] [place] [address] [address] Renee Prado Chloride [Moles/Vol] 103 mmol/L Normal 98-107 [facility] Comment on above: Performed By: #### C MP, LIPID #### [facility] [address] [place] [address] [address] Renee Prado CO2 [Moles/Vol] 30.3 mmol/L Normal 21.0-32.0 [facility] Comment on above: Performed By: #### C MP, LIPID #### [facility] [address] [place] [address] [address] Renee Prado Creatinine [Mass/Vol] 0.83 mg/dL Normal 0.70-1.30 [facility] Comment on above: Performed By: #### C MP, LIPID #### [facility] [address] [place] [address] [address] Renee Prado EGFR-AF BURUNDIAN >65 Normal >=60 [facility] Comment on above: Performed By: #### C MP, LIPID #### [facility] [address] [place] [address] [address] Renee Prado EGFR-NON AF BURUNDIAN >65 Normal >=60 [facility] Comment on above: Performed By: #### C MP, LIPID #### [facility] [address] [place] [address] [address] eRnee Prado Globulin (S) [Mass/Vol] 3.2 g/dL Normal [facility] Comment on above: Performed By: #### C MP, LIPID #### [facility] [address] [place] [address] Dr. Renee Prado Glucose [Mass/Vol] 88 mg/dL Normal 74-106 [facility] Comment on above: Performed By: #### C MP, LIPID #### [facility] [address] [place] [address] Dr. Renee Prado Potassium [Moles/Vol] 3.7 mmol/L Normal 3.5-5.1 [facility] Comment on above: Performed By: #### C MP, LIPID #### [facility] [address] [place] [address] Dr. Renee Prado Protein [Mass/Vol] 7.2 g/dL Normal 6.4-8.2 [facility] Comment on above: Performed By: #### C MP, LIPID #### [facility] [address] [place] [address] [address] Renee Prado Sodium [Moles/Vol] 138 mmol/L Normal 136-145 [facility] Comment on above: Performed By: #### C MP, LIPID #### [facility] [address] [place] [address] [address] Renee Prado Urea nitrogen [Mass/Vol] 12.0 mg/dL Normal 7.0-18.0 [facility] Comment on above: Performed By: #### C MP, LIPID #### [facility] [address] [place], [place] [address] Dr. Renee Prado Urea nitrogen/Creatinine [Mass ratio] 14.5 mg/mg Normal [facility] Comment on above: Performed By: #### C MP, LIPID #### [facility] [address] [place], [place] [address] Dr. Renee Prado Vital Signs Date Time Vital Sign Value Performing Clinician Faci lity 06-07-2025 11:32-0400 Body height 193.04 cm Sophie Aichholz MEDICAL ATTENDANT-C Work Phone: [facility] 06-07-2025 11:32-0400 Body mass index (BMI) [Ratio] 29.2 kg/m2 Sophie Aichholz MEDICAL ATTENDANT-C Work Phone: [facility] 06-07-2025 11:32-0400 Body temperature 97.8 [degF] Sophie Aichholz MEDICAL ATTENDANT-C Work Phone: [facility] 06-07-2025 11:32-0400 Body weight 108.86 kg Sophie Aichholz MEDICAL ATTENDANT-C Work Phone: [facility] 06-07-2025 11:32-0400 Diastolic blood pressure 70 mm[Hg] Sophie Aichholz MEDICAL ATTENDANT-C Work Phone: [facility] 06-07-2025 11:32-0400 Heart rate 59 /min Sophie Aichholz MEDICAL ATTENDANT-C Work Phone: [facility] 06-07-2025 11:32-0400 Respiratory rate 18 /min Sophie Aichholz MEDICAL ATTENDANT-C Work Phone: [facility] 06-07-2025 11:32-0400 SaO2% (BldA) [Mass fraction] 95 % Sophie Aichholz MEDICAL ATTENDANT-C Work Phone: [facility] 06-07-2025 11:32-0400 Systolic blood pressure 150 mm[Hg] Sophie Aichholz MEDICAL ATTENDANT-C Work Phone: [facility] 04-12-2025 14:30-0400 Body mass index (BMI) [Ratio] 31.14 kg/m2 Sophie Washington MEDICAL ATTENDANT Work Phone: [facility] 04-12-2025 14:30-0400 Body temperature 98.49 [degF] Sophie Delarosa MEDICAL ATTENDANT Work Phone: [facility] 04-12-2025 14:30-0400 Body weight 116.03 kg Sophie Washington MEDICAL ATTENDANT Work Phone: [facility] 04-12-2025 14:30-0400 Diastolic blood pressure 76 mm[Hg] Sophie Delarosa MEDICAL ATTENDANT Work Phone: [facility] 04-12-2025 14:30-0400 Heart rate 86 /min Sophie Delarosa MEDICAL ATTENDANT Work Phone: [facility] 04-12-2025 14:30-0400 Respiratory rate 22 /min Sophie Washington MEDICAL ATTENDANT Work Phone: [facility] 04-12-2025 14:30-0400 SaO2% (BldA) [Mass fraction] 96 % Sophieiram Delarosa MEDICAL ATTENDANT Work Phone: [facility] 04-12-2025 14:30-0400 Systolic blood pressure 138 mm[Hg] Sophie Delarosa MEDICAL ATTENDANT Work Phone: [facility] 01-25-2025 14:45-0400 Body temperature 96.98 [degF] Drew HIRSCH [facility] 01-25-2025 14:45-0400 Diastolic blood pressure 77 mm[Hg] Drew HIRSCH [facility] 01-25-2025 14:45-0400 Heart rate 74 /min Drew HIRSCH [facility] 01-25-2025 14:45-0400 Respiratory rate 16 /min Drew HIRSCH [facility] 01-25-2025 14:45-0400 Systolic blood pressure 136 mm[Hg] Drew HIRSCH [facility] 12-13-2024 10:09-0400 Body mass index (BMI) [Ratio] 28.73 kg/m2 Sophie Washington MEDICAL ATTENDANT Work Phone: [facility] 12-13-2024 10:09-0400 Body temperature 98.49 [degF] Sophie Delarosa MEDICAL ATTENDANT Work Phone: [facility] 12-13-2024 10:09-0400 Body weight 107.05 kg Sophie Washington MEDICAL ATTENDANT Work Phone: [facility] 12-13-2024 10:09-0400 Diastolic blood pressure 82 mm[Hg] Sophie Washington MEDICAL ATTENDANT Work Phone: [facility] 12-13-2024 10:09-0400 Heart rate 72 /min Sophie Geethaz MEDICAL ATTENDANT Work Phone: [facility] 12-13-2024 10:09-0400 Respiratory rate 18 /min Sophie Washington MEDICAL ATTENDANT Work Phone: [facility] 12-13-2024 10:09-0400 SaO2% (BldA) [Mass fraction] 98 % Sophie Delarosa MEDICAL ATTENDANT Work Phone: [facility] 12-13-2024 10:09-0400 Systolic blood pressure 128 mm[Hg] Sophie Delarosa MEDICAL ATTENDANT Work Phone: [facility] 08-24-2024 15:25-0500 Body height 193 cm Zoraida Chavez MEDICAL ATTENDANT Work Phone: [facility] 08-24-2024 15:25-0500 Body mass index (BMI) [Ratio] 28.61 kg/m2 Zoraida Broussardpatrick MEDICAL ATTENDANT Work Phone: [facility] [facility] 08-[facility]-2024 15:25-0500 Body temperature 96.6 [degF] Zoraida Chavez MEDICAL ATTENDANT Work Phone: [facility] 08-24-2024 15:25-0500 Body weight 106.59 kg Zoraida Chavez MEDICAL ATTENDANT Work Phone: [facility] 08-24-2024 15:25-0500 Diastolic blood pressure 70 mm[Hg] Zoraida Chavez MEDICAL ATTENDANT Work Phone: [facility] 08-24-2024 15:25-0500 Heart rate 79 /min Zoraida Chavez MEDICAL ATTENDANT Work Phone: [facility] 08-24-2024 15:25-0500 Respiratory rate 16 /min Zoraida Chavez MEDICAL ATTENDANT Work Phone: [facility] 08-24-2024 15:25-0500 SaO2% (BldA) [Mass fraction] 97 % Zoraida Chavez MEDICAL ATTENDANT Work Phone: [facility] 08-24-2024 15:25-0500 Systolic blood pressure 122 mm[Hg] Zoraida Chavez MEDICAL ATTENDANT Work Phone: [facility] 10-09-2023 11:45-0500 Diastolic blood pressure 69 mm[Hg] [facility] 10-09-2023 11:45-0500 Heart rate 69 /min [facility] 10-09-2023 11:45-0500 Respiratory rate 18 /min [facility] 10-09-2023 11:45-0500 SaO2% (BldA) [Mass fraction] 99 % [facility] 10-09-2023 11:45-0500 Systolic blood pressure 116 mm[Hg] [facility] 10-09-2023 09:23-0500 Body height 193.04 cm [facility] 10-09-2023 09:23-0500 Body weight 108.86 kg [facility] 2023 10:47-0400 Blood Pressure Location CLARISSA SIERRA [facility] 2023 10:47-0400 Diastolic blood pressure 80 mm[Hg] CLARISSA SIERRA [facility] 2023 10:47-0400 Heart rate 78 /min CLARISSA SIERRA [facility] 2023 10:47-0400 Respiratory rate 16 /min CLARISSA SIERRA [facility] 2023 10:47-0400 Systolic blood pressure 132 mm[Hg] CLARISSA SIERRA [facility] Encounters Encounter Date Encounter Type Care Provider Facility Start: 11-11-2025 ambulatory Drew Sun ty:[facility] [place] Start: 08-08-2025 ambulatory Drew Sun ty:[facility] [place] Start: 06-10-2025 End: 06-10-2025 ambulatory [facility] Start: 06-07-2025 End: 06-07-2025 ambulatory Sophie Delarosa NP-C Work Phone: [facility] Work Phone: Start: 06-07-2025 End: 06-07-2025 Patient encounter procedure Sophie Delarosa NP-C -[facility] [place] Work Phone: Start: 06-07-2025 Patient encounter status Sophie Delarosa NP-C Work Phone: [facility] Start: 06-03-2025 Non-patient / Non-visit Clinton Reynoso DO [facility] Work Phone: Start: 05-13-2025 End: 05-13-2025 ambulatory Drew HIRSCH Facility:[facility] [place] Start: 05-13-2025 End: 05-13-2025 Patient encounter procedure Drew HIRSCH [facility] [place] Start: 05-03-2025 End: 05-03-2025 Refill Sophie Delarosa MEDICAL ATTENDANT Work Phone: [facility] Comment on above: Acute rhinitis Iron deficiency Start: 04-14-2025 End: 04-14-2025 ambulatory Drew Hirsch [facility] Work Phone: Start: 04-14-2025 End: 04-14-2025 Departed Referred Drew Hirsch MD -[facility] Start: 04-14-2025 End: 04-14-2025 ambulatory Drew HIRSCH Facility:[id number] Start: 04-12-2025 End: 04-12-2025 Office outpatient visit 25 minutes Sophie Delarosa MEDICAL ATTENDANT Work Phone: [facility] Comment on above: Prediabetes (Primary Dx); Primary hypertension ; Hydrocele in adult; Acute non-recurrent maxillary sinusitis; Lymphocytopenia Start: 04-12-2025 End: 04-12-2025 Bamboo flowsheet Sophie Delarosa MEDICAL ATTENDANT Work Phone: [facility] Start: 04-12-2025 End: 04-12-2025 Bamboo flowsheet Sophie Delarosa MEDICAL ATTENDANT Work Phone: [facility] Start: 04-11-2025 [...] Department Unsolicited Start: 03-18-2025 End: 03-18-2025 ambulatory [facility] Start: 03-18-2025 End: 03-18-2025 Encounter for other preprocedural examination [facility] Start: 03-16-2025 End: 03-16-2025 Orders Only Sophie Delarosa NP Work Phone: [facility] Comment on above: Abnormal EKG (Primar y Dx) Start: 03-14-2025 End: 03-14-2025 Clinisync Result Encounter Generic External Data Provider [facility] External Department Unsolicited Start: 03-14-2025 End: 03-14-2025 Clinisync Result Encounter Generic External Data Provider [facility] External Department Unsolicited Start: 03-07-2025 End: 03-07-2025 ambulatory Drew HIRSCH Facility:[facility] Start: 03-07-2025 End: 03-07-2025 Patient encounter procedure Drew HIRSCH [facility] Start: 03-06-2025 End: 03-06-2025 Refill Shen Perez [...] Unsolicited Start: 01-25-2025 End: 01-25-2025 ambulatory Drew Garima HIRSCH Facility:[facility] Start: 01-25-2025 End: 01-25-2025 Patient encounter procedure Drew HIRSCH [facility] [place] Start: 01-12-2025 End: 01-12-2025 Refill Shen Perez MD Work Phone: [facility] Comment on above: Primary hypertension (CMS/HCC) Start: 01-03-2025 End: 01-03-2025 Refill Shen Perez MD Work Phone: [facility] Comment on above: Acute rhinitis Start: 12-18-2024 End: 12-18-2024 Clinisync Result Encounter Sophie Washington MEDICAL ATTENDANT Work Phone: [facility] Unsolicited Start: 12-18-2024 End: 12-18-2024 Clinisync Result Encounter Sophie Washington MEDICAL ATTENDANT Work Phone: [facility] Unsolicited Start: 12-17-2024 End: 12-17-2024 Orders Only Sophie Washington MEDICAL ATTENDANT Work Phone: [facility] Comment on above: Hydrocele in adult ( Primary Dx); Swelling of left half of scrotum Start: 12-14-2024 End: 12-14-2024 Clinisync Result Encounter Sophie Washington MEDICAL ATTENDANT Work Phone: [facility] External Department Unsolicited Start: 12-14-2024 End: 12-14-2024 Clinisync Result Encounter Sophie Aicjose MEDICAL ATTENDANT Work Phone: [facility] External Department Unsolicited Start: 12-13-2024 End: 12-13-2024 Bamboo flowsheet Sophie Delarosa MEDICAL ATTENDANT Work Phone: [facility] Start: 12-13-2024 End: 12-13-2024 Bamboo flowsheet Sophie Washington MEDICAL ATTENDANT Work Phone: [facility] Start: 12-13-2024 End: 12-13-2024 Office outpatient visit 25 minutes Sophie Delarosa MEDICAL ATTENDANT Work Phone: [facility] Comment on [...] Start: 09-05-2024 End: 09-08-2024 Refill Zoraida Chavez MEDICAL ATTENDANT Work Phone: [facility] Comment on above: Prediabetes Start: 08-30-2024 End: 08-30-2024 Refill Zoraida Chavez MEDICAL ATTENDANT Work Phone: [facility] Comment on above: Primary hypertension (CMS/HCC) Start: 08-24-2024 End: 08-24-2024 Office outpatient visit 15 minutes Zoraida Chavez MEDICAL ATTENDANT Work Phone: [facility] Comment on above: Primary hypertension (CMS/HCC) (Primary Dx); Iron deficiency; Other chronic pain; BPH with urinary obstruction; Prediabetes; Mixed hyperlipidemia (CMS/HCC); Acute rhinitis Start: 08-24-2024 End: 08-24-2024 ambulatory ZORAIDA CHAVEZ Not Available Start: 08-24-2024 End: 08-24-2024 Bamboo flowsheet Zoraida Chavez MEDICAL ATTENDANT Work Phone: [facility] Start: 08-24-2024 End: 08-24-2024 Bamboo flowsheet Zoraida Leungtrick MEDICAL ATTENDANT Work Phone: [facility] Start: 08-12-2024 End: 08-12-2024 Refill Zoraida Leungtrick MEDICAL ATTENDANT Work Phone: [facility] Comment on above: Other chronic pain Start: 08-12-2024 End: 08-12-2024 Refill Zoraida Leungtrick MEDICAL ATTENDANT Work Phone: [facility] Comment on above: TIA (transient ische harley attack) Start: 08-10-2024 End: 08-10-2024 Refill Christi Bond MA [facility] Comment on above: Hyperlipidemia, unsp ecified hyperlipidemia type (CMS/HCC) Start: 07-14-2024 End: 07-14-2024 Refill Christi Bond MA [facility] Comment on above: Other chronic pain Start: 07-12-2024 End: 07-12-2024 Refill Zoraida Reak MEDICAL ATTENDANT Work Phone: [facility] Comment on above: Primary hypertension (CMS/HCC) Start: 06-23-2024 End: 06-23-2024 Bamboo flowsheet Barbara B Apling MEDICAL ATTENDANT Work Phone: [facility] Start: 06-23-2024 End: 06-23-2024 Bamboo flowsheet Barbara B Apling MEDICAL ATTENDANT Work Phone: [facility] Start: 06-23-2024 End: 06-23-2024 Office outpatient visit 25 minutes Barbara B Apling MEDICAL ATTENDANT Work Phone: [facility] Comment on above: Left knee pain, unsp ecified chronicity (Primary Dx); Arthritis of left knee Start: 06-23-2024 End: 06-23-2024 ambulatory BARBARA B APLING Not Available Start: 06-21-2024 End: 06-21-2024 Refill Wendy Lewis [facility] Comment on above: Iron deficiency Start: 03-29-2024 End: 03-29-2024 ambulatory BARBARA B APLING Not Available Start: 03-15-2024 End: 03-15-2024 ambulatory BARBARA Cuenca APLING Not Available Start: 03-08-2024 End: 03-08-2024 ambulatory BARBARA Cuenca APLING Not Available Start: 02-25-2024 End: 02-25-2024 ambulatory SHAIKH CHRISTYEdgardo Not Available Start: 10-09-2023 Non-patient / Non-visit [facility] Physician [facility] Gastroenterology Work Phone: Start: 09-03-2023 Orders Only Shaikh Breanna WEAVER Work Phone: [facility] Comment on above: Anemia, unspecified Start: 08-26-2023 Patient encounter status Wendy Lewis [facility] Start: 2023 End: 2023 Patient encounter procedure CLARISSA SIERRA [facility] Start: 06-25-2022 End: 06-26-2022 ambulatory Best BREANNA Facility: Procedures Date Procedure Procedure Detail Performing Clinician Start: 06-10-2025 Follow-up visit Follow-up MISAEL MAXWELL Start: 04-12-2025 Hemoglobin glycosyla jackie a1c Sophie Delarosa MEDICAL ATTENDANT Work Phone: Start: 03-26-2025 CA ECHO DOPPLER COMPLETE Generic External Data Provider Start: 03-14-2025 ALL BASIC METABOLIC PANEL Generic External Data Provider Start: 03-14-2025 ECG 12-LEAD Generic Ex ternal Data Provider Start: 02-09-2025 Us scrotum & contents G eneric External Data Provider Start: 01-25-2025 Flexible cystoscope (physical object) Drew HIRSCH Start: 12-18-2024 ALL CBC WITH AUTO DIFF Sophie Delarosa MEDICAL ATTENDANT Work Phone: Start: 12-14-2024 Us scrotum & contents L jenny Delarosa MEDICAL ATTENDANT Work Phone: Start: 06-23-2024 Arthrocentesis aspir &/inj major jt/bursa w/o us Barbara Messer NP Work Phone: Start: 02-27-2023 Microalbumin [Mass/v olume] in Urine by Test strip Shaikh Breanna WEAVER Work Phone: Start: 06-25-2022 PSA screening SHAIKH DUNCAN ORDONEZ Comment on above: Performed By: #### P SAD #### [facility] [address] [place] [address] Dr. Renee Prdao Start: 10-07-2017 Colonoscopy Wendy Herrera bethany Carpal tunnel syndro me (disorder) CLARISSA SIERRA Colonoscopy CLARISSA MARIELA H/O: surgery Status post repa ir of khushi HIRSCH Tonsillectomy CLARISSA MARIELA Plan of Treatment Date Care Activity Detail Author Start: 06-30-2030 DTaP,Tdap and Td Vaccines (2 - Td or Tdap) DTaP,Tdap and Td Vaccines (2 - Td or Tdap) [facility] Start: 10-07-2027 Screening for malign ant neoplasm of colon [facility] Start: 12-18-2025 Urine screening for protein Diabetes: Urine Protein Screening [facility] Start: 08-18-2025 Glaucoma screening Diabetes: R etinopathy Screening [facility] Start: 07-14-2025 End: 07-14-2025 Patient encounter procedure 07/14/2025 1:20 PM EST Office Visit [facility] [address] [place] [id number] Sophie Delarosa NP [address] [place] [address] [facility] Start: 05-13-2025 End: 04-12-2026 CBC W Auto Differential panel - Blood CBC and differential Lab Routine Lymphocytopenia Expected: 05/13/2025 (Approximate), Expires: 04/12/2026 [facility] Work Phone: Comment on above: Expected: 05/13/2025 (Approximate), Expires: 04/12/2026 Start: 05-09-2025 Influenza vaccination Influenza Vacc ine (#1) [facility] Start: 04-12-2025 End: 04-12-2025 Patient encounter procedure [facility] Comment on above: Primary hypertension (Primary Dx); Hydrocele in adult; Prediabetes Start: 03-16-2025 End: 03-16-2026 ECG 12 lead ECG 12 lead ECG Routine Abnormal EKG Expected: 03/16/2025 (Approximate), Expires: 03/16/2026 [facility] Work Phone: Comment on above: Expected: 03/16/2025 (Approximate), Expires: 03/16/2026 Start: 03-14-2025 End: 03-14-2025 Patient encounter procedure 03/14/2025 3:20 PM EDT Office Visit [facility] [address] [place] [address] Sophie Delarosa, MEDICAL ATTENDANT [address] [place] [phone] [facility] Start: 02-23-2025 End: 02-23-2025 Patient encounter procedure [facility] Start: 12-13-2024 End: 12-13-2025 CBC W Auto Differential panel - Blood CBC and differential Lab Routine Iron deficiency anemia, unspecified iron deficiency anemia type Expected: 12/13/2024 (Approximate), Expires: 12/13/2025 [facility] Work Phone: Comment on above: Expected: 12/13/2024 (Approximate), Expires: 12/13/2025 Start: 12-13-2024 End: 12-13-2025 Comprehensive metabolic 2000 panel - Serum or Plasma Comprehensive metabolic panel Lab Routine Primary hypertension (CMS/HCC) Prediabetes Mixed hyperlipidemia (CMS/HCC) Expected: 12/13/2024 (Approximate), Expires: 12/13/2025 [facility] Comment on above: Expected: 12/13/2024 (Approximate), Expires: 12/13/2025 Start: 12-13-2024 End: 12-13-2025 Ferritin [Mass/volume] in Serum or Plasma Ferritin Lab Routine Iron deficiency anemia, unspecified iron deficiency anemia type Expected: 12/13/2024 (Approximate), Expires: 12/13/2025 [facility] Comment on above: Expected: 12/13/2024 (Approximate), Expires: 12/13/2025 Start: 12-13-2024 End: 12-13-2025 Hemoglobin A1c/Hemoglobin.total in Blood Hemoglobin A1c Lab Routine Prediabetes Expected: 12/13/2024 (Approximate), Expires: 12/13/2025 [facility] Comment on above: Expected: 12/13/2024 (Approximate), Expires: 12/13/2025 Start: 12-13-2024 End: 12-13-2025 Iron + transferrin + TIBC Iron + transferrin + TIBC Lab Routine Iron deficiency anemia, unspecified iron deficiency anemia type Expected: 12/13/2024 (Approximate), Expires: 12/13/2025 [facility] Comment on above: Expected: 12/13/2024 (Approximate), Expires: 12/13/2025 Start: 12-13-2024 End: 12-13-2025 Lipid 1996 panel - Serum or Plasma Lipid panel Lab Routine Mixed hyperlipidemia (CMS/HCC) Expected: 12/13/2024 (Approximate), Expires: 12/13/2025 [facility] Comment on above: Expected: 12/13/2024 (Approximate), Expires: 12/13/2025 Start: 12-13-2024 End: 12-13-2025 Microalbumin/Creatinine panel in random Urine Microalbumin / creatinine, urine ratio Lab Routine Primary hypertension (CMS/HCC) Prediabetes Expected: 12/13/2024 (Approximate), Expires: 12/13/2025 [facility] Comment on above: Expected: 12/13/2024 (Approximate), Expires: 12/13/2025 Start: 12-13-2024 End: 12-13-2025 Prostate specific Ag [Mass/volume] in Serum or Plasma PSA Lab Routine Screening for prostate cancer Expected: 12/13/2024 (Approximate), Expires: 12/13/2025 [facility] Comment on above: Expected: 12/13/2024 (Approximate), Expires: 12/13/2025 Start: 12-13-2024 End: 12-13-2025 Urinalysis complete panel - Urine Urinalysis with reflex microscopic (clean catch) Lab Routine Primary hypertension (CMS/HCC) Prediabetes Expected: 12/13/2024 (Approximate), Expires: 12/13/2025 [facility] Comment on above: Expected: 12/13/2024 (Approximate), Expires: 12/13/2025 Start: 12-13-2024 End: 12-13-2025 US Scrotum and testicle US scrotum Imaging High Priority Swelling of left half of scrotum Expected: 12/13/2024 (Approximate), Expires: 12/13/2025 [facility] Comment on above: Expected: 12/13/2024 (Approximate), Expires: 12/13/2025 Start: 12-13-2024 End: 12-13-2024 Patient encounter procedure 12/13/2024 10:00 AM EDT Office Visit [facility] [address] [place] [address] Sophie Delarosa NP [address] [place] [address] Primary hypertension (CMS/HCC) (Primary Dx); BPH with urinary obstruction; Erectile dysfunction, unspecified erectile dysfunction type; Prediabetes; Iron deficiency anemia, unspecified iron deficiency anemia type; Mixed hyperlipidemia (CMS/HCC); Screening for prostate cancer; Swelling of left testicle [facility] Comment on above: Primary hypertension (CMS/HCC) (Primary Dx); BPH with urinary obstruction; Erectile dysfunction, unspecified erectile dysfunction type; Prediabetes; Iron deficiency anemia, unspecified iron deficiency anemia type; Mixed hyperlipidemia (CMS/HCC); Screening for prostate cancer; Swelling of left testicle Start: 08-24-2024 End: 08-24-2024 Patient encounter procedure [facility] Comment on above: Arrived Start: 08-23-2024 End: 08-23-2024 Patient encounter procedure 08/23/2024 8:00 AM EST Office Visit [facility] [address] [facility] [address] [place] [id number] Barbara Messer NP [address] [facility] [address] [place] [address] [facility] Start: 06-23-2024 End: 06-23-2024 Patient encounter procedure [facility] Comment on above: Left knee pain, unsp ecified chronicity (Primary Dx); Arthritis of left knee Start: 05-09-2024 Influenza vaccination Influenza Vacc ine (#1) [facility] Start: 02-29-2024 Urine screening for protein Diabetes: Urine Protein Screening [facility] Start: 02-28-2024 Urine screening for protein Urine Microalbumin [facility] Start: 10-09-2023 [facility] Start: 09-03-2023 End: 09-03-2024 Ferritin [Mass/volume] in Serum or Plasma Ferritin Lab Routine Anemia, unspecified Expected: 09/03/2023, Expires: 09/03/2024 [facility] Work Phone: Comment on above: Expected: 09/03/2023 , Expires: 09/03/2024 Start: 03-01-2023 Adult BMI Screening Adult BMI Screen ing [facility] Start: 03-01-2023 Tobacco Screening Tobacco Screening [facility] Start: 2022 Fall Risk Screening Fall Risk Screen ing [facility] Start: 1975 Diabetic foot examination Diabetic Foot Exam [facility] Start: 1969 Depression Screening Depression Scre ening [facility] Start: 1957 Glaucoma screening Diabetic Op hthalmology Exam [facility] Start: 1957 Medicare Annual Wellness Visit Medicare Annual Wellness Visit [facility] Start: 1957 Screening for malign ant neoplasm of colon [facility] Microalbumin/Creatin ine panel in random Urine Microalbumin / creatinine urine ratio Lab Routine Primary hypertension (CMS/HCC) Ordered: 08/24/2024 [facility] Work Phone: Comment on above: Ordered: 08/24/2024 Immunizations Immunization Date Immunization Notes Care Provider Duncan lochristophe 07-10-2024 influenza virus vaccine, unspecified formulation Drew HIRSCH [facility] 07-10-2024 influenza, high dose seasonal, preservative-free Shen Perez MD Work Phone: [facility] 06-08-2024 influenza virus vaccine, unspecified formulation Drew HIRSCH [facility] Comment on above: Result Comment: 2024: [facility] 06-08-2024 influenza, seasonal, injectable Zoraida Chavez NP Work Phone: [facility] 09-13-2023 Pneumococcal Conjuga te PCV 20 Wendy Lewis [facility] 08-15-2023 RSV vaccine preF3, recombinant Drew HIRSCH [facility] 08-15-2023 RSV, recombinant, protein subunit RSVpreF, adjuvant reconstitu, 120mcg/0.5mL, PF (Arexvy) Wendy Lewis [facility] 06-22-2023 Influenza, Seasonal, Quadrivalent, Adjuvanted Wendy Lewis [facility] 06-22-2023 influenza virus vaccine, unspecified formulation Wendy Lewis [facility] 07-04-2022 SARS-CoV-2 (COVID-19 ) [id number] CLARISSA SIERRA [facility] 06-15-2022 influenza virus vaccine, unspecified formulation CLARISSA SIERRA [facility] 06-15-2022 Influenza, Seasonal, Quadrivalent, Adjuvanted Wendy Lewis [facility] 12-07-2020 SARS-CoV-2 (COVID-19 ) mRNA BNT-162b2 vax CLARISSA SIERRA [facility] 11-17-2020 SARS-CoV-2 (COVID-19 ) mRNA BNT-162b2 vax CLARISSA SIERRA [facility] Comment on above: Result Comment: 2022: [id number] 06-30-2020 influenza virus vaccine, unspecified formulation CLARISSA MARIELA [facility] 06-30-2020 influenza, injectabl e, quadrivalent, preservative free Wendy [employer] [facility] 06-30-2020 tetanus toxoid, reduced diphtheria toxoid, and acellular pertussis vaccine, adsorbed CLARISSA MARIELA [facility] 03-15-2020 zoster vaccine recombinant CLARISSA MARIELA [facility] 10-11-2019 zoster vaccine recombinant CLARISSA MARIELA [facility] 07-29-2019 influenza virus vaccine, unspecified formulation CLARISSA MARIELA [facility] 07-29-2019 influenza, injectabl e, quadrivalent, preservative free Wendy [employer] [facility] 07-17-2018 influenza virus vaccine, unspecified formulation CLARISSA MARIELA [facility] 07-17-2018 Influenza, injectabl e, Madin [place] Canine Kidney, preservative free, quadrivalent Wendy Debbie [facility] 12-19-2016 zoster vaccine, live JENNIFE R MAIRELA [facility] 09-18-2009 novel [id number], preservative-free, injectable Wendy [employer] [facility] Payers Date Payer Category Payer Self-pay 2025 Private Health Insurance [id number] 2017 Private Health Insurance [id number] 1959 Private Health Insurance [id number] 1957 Unknown [id number] 2.16.84 [id number] 1957 Unknown [id number] 2.16.84 [id number] 1957 Unknown [id number] 2.16.84 0.1.847219.3.579.2.1259 1957 Unknown [id number] 2.16.84 0.1.072438.3.579.2.1259 1957 Unknown [id number] 2.16.84 0.1.338405.3.579.2.1259 1957 Unknown [id number] 2.16.84 0.1.256712.3.579.2.1259 1957 Unknown [id number] 2.16.84 0.1.618018.3.579.2.1259 1957 Unknown [id number] 2.16.84 0.1.362606.3.579.2.1259 1957 Unknown [id number] 2.16.8 40.1.339676.3.579.2.727 1957 Unknown [id number] 2.16.8 40.1.324311.3.579.2.727 1957 Unknown [id number] 2.16.8 40.1.978890.3.579.2.727 1957 Unknown [id number] 2.16.8 40.1.151643.3.579.2.727 1957 Unknown [id number] 2.16.8 40.1.470391.3.579.2.727 1957 Unknown [id number] 2.16.8 40.1.770437.3.579.2.727 1957 Unknown [id number] 2.16.8 40.1.065349.3.579.2.727 1957 Unknown [id number] 2.16.8 40.1.535080.3.579.2.727 Unknown [facility] [id number] Unknown [id number] 2.16.8 [id number] Social History Date Type Detail Facility Start: 2023 End: 10-09-2023 Tobacco smoking status Never smoked tobacco (finding) [facility] Tobacco smoking status Never [facility] [facility] Start: 08-25-2023 End: 04-12-2025 Sex Assigned At Male [facility] Start: 1955 Sex Assigned At Male F [facility] Start: 12-03-2021 End: 02-25-2024 Tobacco use and exposure Smokeless tobacco non-user [facility] Start: 03-29-2024 End: 04-12-2025 Alcoholic beverage intake Lifetime non-drinker (finding) [facility] Start: 08-25-2023 End: 04-12-2025 History of Social function [facility] Within the last year , have you been afraid of your partner or ex-partner? No [facility] Do you belong to any clubs or organizations such as protestant groups, unions, fraternal or athletic groups, or [...] Sex assigned at Not on file [facility] Start: 03-01-2022 Alcohol intake Ex-drinker (finding) [facility] Sexual Orientation [facility] Kris Sex Male (finding) [facility] NEGATED: Highlighted rowStart: NINF History of tobacco use Passive smoker [facility] Functional Status Date Assessment Result Facility 01-25-2025 Functional Status N/A [facility] 2023 Functional Status N/A [facility] Clinical Notes 2023 to 05-13-2025 Sophie Delarosa NP - 04/12/2025 3:23 PM YVAN STEWART - 04/12/2025 2:20 PM Jules Delarosa NP [...] Follow these instructions at home: Medicines Take sorf-ruv-jeuoeux and prescription medicines only as told by your health care provider. Ask your health care provider if the medicine prescribed to you: ?Requires you to avoid driving or using machinery. ?Can cause constipation. You may need to take these actions to prevent or treat constipation: ?Drink enough fluid to keep your urine pale yellow. ?Take npgq-ljo-idvcnog or prescription medicines. ?Eat foods that are [...] and water are not available, use hand yarn dumper. ?Change your dressing as told by your [...] provider. Document Revised: 04/11/2022 Document Reviewed: 04/11/2022 [employer] (powering [employer]) Patient Education 2023 [employer]. Follow Up Care 04/05/2025 08:41:06 With:BETO WEAVER, [employer], URL Address: [address] [place] [address] [place] [address] When: Unknown Comments:6 mos [facility] 05-13-2025 Note Patient Education Urology Hydrocelectomy, Adult, [...] these instructions at home: Medicines ??? Take pcks-tpx-wllwagg and prescription medicines only as told by your health care provider. ??? Ask your health care provider if the medicine prescribed to you: ? Requires you to avoid driving or using machinery. ? Can cause constipation. You may need to take these actions to prevent or treat constipation: ? Drink enough fluid to keep your urine pale yellow. ? Take tqhy-rhq-zactlwx or prescription medicines. ? Eat foods that [...] and water are not available, use hand yarn dumper. ? Change your dressing as told by [...] ??? Do not (more content not included)... [facility] 04-12-2025 History of Present illness Narrative Associated [...] Date Arthritis BPH with urinary obstruction Diabetes (HCC) DM II (diabetes mellitus, type II), controlled ([facility]) Erectile dysfunction History of TIA [...] Current meds: metoprolol documented in this encounter [facility] 04-12-2025 Instructions Sophie Delarosa NP - 04/12/2025 2:20 PM EDT Check blood work again in 4 weeks documented in this encounter [facility] 04-05-2025 Note Patient Education Urology [...] these instructions at home: Medicines ??? Take slsv-rdf-qixtnyb and prescription medicines only as told by your health care provider. ??? Ask your health care provider if the medicine prescribed to you: ? Requires you to avoid driving or using machinery. ? Can cause constipation. You may need to take these actions to prevent or treat constipation: ? Drink enough fluid to keep your urine pale yellow. ? Take rbtl-dox-catvmnl or prescription medicines. ? Eat foods that [...] and water are not available, use hand yarn dumper. ? Change your dressing as told by [...] ??? Do not (more content not included)... [facility] 03-29-2025 Note I reviewed the destineee gamal's echo and it appears to be normal. Therefore the patient can proceed with surgery from the cardiac point of view with necessary anesthesia. He is considered to be at low risk for perioperative cardiac events [facility] 03-18-2025 Note [place] [facility] Note Reason for cardiology [...] medical history of Abnormal ECG, Diabetes mellitus ([facility]), Hyperlipidemia, Hypertension, and Stroke ([facility]). Surgical History He has no [...] enlargement, otherwise normal EKG Echo 11/01/2021 at [facility] Left Ventricle: Systolic function is normal with [...] systolic pressure. How (more content not included)... [facility] 03-16-2025 Telephone encounter Note Please contact pt, his EKG was abnormal that he had the other day, however I am wondering if the tracing is not entirely accurate. I would like to repeat an EKG to see if it was a fluke or not. When is his surgery scheduled for? [place] [facility] 03-16-2025 Miscellaneous Notes Please contact pt, his EKG was abnormal that he had the other day, however I am wondering if the tracing is not entirely accurate. I would like to repeat an EKG to see if it was a fluke or not. When is his surgery scheduled for? NICKOLAS documented in this encounter [facility] 03-07-2025 Hospital Discharge instructions Patient [...] Follow these instructions at home: Medicines Take ckub-dyq-jzbtclh and prescription medicines only as told by your health care provider. Ask your health care provider if the medicine prescribed to you: ?Requires you to avoid driving or using machinery. ?Can cause constipation. You may need to take these actions to prevent or treat constipation: ?Drink enough fluid to keep your urine pale yellow. ?Take fwbk-zjm-xgwwwwe or prescription medicines. ?Eat foods that are [...] and water are not available, use hand yarn dumper. ?Change your dressing as told by your [...] provider. Document Revised: 04/11/2022 Document Reviewed: 04/11/2022 [employer] Patient Education 2023 [employer]irply. 03/07/2025 15:19:45 Hydrocelectomy, Adult Hydrocelectomy, Adult A [...] including vitamins, herbs, eye drops, creams, and apbn-aco-dlsmpwm medicines. Any problems you or family members [...] provider tells you to take them. Taking nxuw-xje-gchkbzn medicines, vitamins, herbs, and supplements. Surgery safety [...] provider. Document Revised: 04/11/2022 Document Reviewed: 04/11/2022 [employer] Patient Education 2023 [employer]. Follow Up Care 02/17/2025 12:41:43 With:BETO WEAEVR, [employer], URL Address: [facility] [address] , [place] [phone] When: Unknown Comments:westley [place] hydrocelectomy [facility] 03-07-2025 Note Patient Education Urology Hydrocelectomy, Adult, [...] these instructions at home: Medicines ??? Take mrdc-fih-moyfxfz and prescription medicines only as told by your health care provider. ??? Ask your health care provider if the medicine prescribed to you: ? Requires you to avoid driving or using machinery. ? Can cause constipation. You may need to take these actions to prevent or treat constipation: ? Drink enough fluid to keep your urine pale yellow. ? Take dmjj-xbf-kurvedq or prescription medicines. ? Eat foods that [...] and water are not available, use hand yarn dumper. ? Change your dressing as told by [...] ??? Do not (more content not included)... [facility] 01-25-2025 Hospital Discharge instructions Patient Education 01/25/2025 [...] urethra. Follow these instructions at home: Take pubj-mts-otklcob and prescription medicines only as told by [...] provider. Document Revised: 03/13/2022 Document Reviewed: 03/13/2022 [employer] Patient Education 2023 [employer]. Follow Up Care 01/04/2025 15:06:55 With:BETO WEAVER, [employer], URL Address: [facility] [address], [place] [address]- When: Unknown [facility] 01-25-2025 Note Patient Education Urology Benign Prostatic [...] Follow these instructions at home: ??? Take juwq-vsk-swhvhnp and prescription medicines only as told by [...] do not get (more content not included)... [facility] 01-03-2025 Note Urology Office/Clini c Note Chief [...] [employer], URL [facility] [address] , [place] [phone] Additional Instructions: sched cysto Patient Education Cystoscopy [...] data Procedure/Surgical Hist (more content not included)... [facility] Comment on above: Result Comment: Elec tronically Signed By: BETO WEAVER, [employer]\.br\Date and Time Signed: 01/03/25 13:56 EDT\.br\Electronically Co-Signed [...] including vitamins, herbs, eye drops, creams, and csji-fom-evssfau medicines. ??? Any problems you or family [...] tells you to take them. ??? Taking ruux-klk-ahybton medicines, vitamins, herbs, and supplements. Tests You [...] these instructions at home: Medicines ??? Take ckuj-qjb-woyrbug and prescription medicines only as told by [...] (biopsy) during your (more content not included)... [facility] 12-13-2024 History of Present illness Narrative Associated [...] Suspected inguinal hernia with hydrocele Check US [facility] Pt states that it started swelling a [...] There is no history of kidney disease, CAD/MA or heart failure. Diabetes He presents for [...] being taken. 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 SUBJECTIVE: MEDICATIONS: Current Outpatient [...] Date Arthritis BPH with urinary obstruction Diabetes ([facility]) DM II (diabetes mellitus, type II), controlled ([facility]) Erectile dysfunction History of TIA (transient ischemic attack) HLD (hyperlipidemia) ([facility]) Hypertension ([facility]) Right knee pain Past Surgical [...] Orders Comprehensive metabolic panel Lipid panel Hypertension (CMS/HCC) Please check blood pressure daily [...] Current meds: metoprolol documented in this encounter [facility] 12-13-2024 Instructions Sophie Delarosa NP - 12/13/2024 10:00 AM EDT Labs are due: fasting 8 hours US scrotum: I will order US at [facility], ,ext [phone] documented in this encounter [facility] 08-24-2024 History of Present illness [...] RISK >11.0 HIGH RISK Resulting Agency [facility] Prediabetes: Currently taking Metformin 500mg Denies [...] 15 MG tablet documented in this encounter [facility] 08-12-2024 Telephone encounter Note Patient is asking if his meloxicam can be a 90 day supply like all his other medications. I did put in for a refill of the low dose aspirin. SON [facility] 08-12-2024 Miscellaneous Notes Patient is asking if his meloxicam can be a 90 day supply like all his other medications. I did put in for a refill of the low dose aspirin. SON documented in this encounter [facility] 08-10-2024 Telephone encounter Note MANDO: NOV:09/03/2024 [facility] 08-10-2024 Miscellaneous Notes MANDO: NOV:09/03/2024 documented in this encounter [facility] 07-14-2024 Telephone encounter Note Mando:02/25/2024 NOV:08/23/2024 [facility] 07-14-2024 Miscellaneous Notes Mando:02/25/2024 NOV:08/23/2024 documented in this encounter [facility] 06-23-2024 History of Present illness [...] rest. Pain with activities 1-05/18, laying down /10. Admits waking at night. Denies N/T. Notes [...] in 2 months documented in this encounter [facility] 2023 Hospital Discharge instructions Patient [...] urethra. Follow these instructions at home: Take gtff-mua-jtxszff and prescription medicines only as told by [...] provider. Document Revised: 03/13/2022 Document Reviewed: 03/13/2022 [employer] Patient Education 2022 Chirply. Follow Up Care 03/05/2023 09:34:37 With:CLARISSA SIERRA PA-C, URL Address: [address] [place] [address] When: Unknown Comments:Sched Cysto/TRUS w/KML [facility] Evaluation + Plan note No data available for this section [facility] Evaluation + Plan note Future Appointments Appointment Date:08/08/2025 10:30:00 AM Scheduled Provider:Drew HIRSCH MD Location:[facility] Appointment Type:URO Office Visit [facility] Evaluation + Plan note Future Appointments Appointment Date:04/11/2025 02:30:00 PM Scheduled Provider:Drew HIRSCH MD [facility] Appoint[facility] Type:URO Office Visit Appointment Date:08/08/2025 10:30:00 AM Scheduled Provider:Drew HIRSCH MD [facility] Appointment Type:URO Office Visit [facility] Evaluation + Plan note Future Appointments Appointment Date:08/08/2025 10:30:00 AM Scheduled Provider:Drew HIRSCH [facility] Type:URO Office Visit Appointment Date:11/11/2025 08:30:00 AM Scheduled Provider:Drew HIRSCH MD [facility] Appointment Type:URO Office Visit [facility] Evaluation note No assessment inform ation available [facility] Work Phone: Evaluation note Diagnosis Primary hypertension [...] of iron metabolism documented in this encounter [facility]* Diagnosis Primary hypertension (CMS/HCC)- Primary [...] of left knee documented in this encounter [facility] HealthcareEvaluation note* Diagnosis Primary hypertension [...] of left knee documented in this encounter [facility] HealthcareEvaluation note* Diagnosis Primary hypertension [...] Unspecified essential hypertension documented in this encounter [facility]* Diagnosis Primary hypertension (CMS/HCC)- Primary [...] Other chronic pain documented in this encounter [facility]* Diagnosis Primary hypertension (CMS/HCC)- Primary [...] hyperlipidemia type (CMS/HCC) documented in this encounter [facility]Evaluation [facility]* Diagnosis Primary hypertension (CMS/HCC)- Primary [...] Other chronic pain documented in this encounter [facility]* Diagnosis Primary hypertension (CMS/HCC)- Primary [...] transient cerebral ischemia documented in this encounter [facility]* Diagnosis Primary hypertension (CMS/HCC)- Primary [...] nasopharyngitis (common cold) documented in this encounter [facility]* Diagnosis Primary hypertension (CMS/HCC)- Primary [...] Unspecified essential hypertension documented in this encounter [facility] HealthcareEvaluation note* Diagnosis Primary hypertension [...] Other abnormal glucose documented in this encounter [facility] HealthcareEvaluation note* Diagnosis Anemia, unspecified [facility] Diagnosis Primary hypertension (CMS/HCC)- [...] apnea (adult) (pediatric) documented in this encounter [facility] HealthcareEvaluation note* Diagnosis Primary hypertension [...] half of scrotum documented in this encounter [facility] HealthcareEvaluation note* Diagnosis Primary hypertension [...] nasopharyngitis (common cold) documented in this encounter [facility] HealthcareEvaluation note* Diagnosis Primary hypertension [...] Unspecified essential hypertension documented in this encounter [facility] HealthcareEvaluation note* Diagnosis Primary hypertension- [...] unspecified hyperlipidemia type documented in this encounter [facility]Evaluation note* Diagnosis Primary hypertension- Primary Unspecified [...] Other abnormal glucose documented in this encounter [facility] HealthcareEvaluation note* Diagnosis Primary hypertension- [...] tract symptoms (LUTS) documented in this encounter [facility] HealthcareEvaluation note* Diagnosis Primary hypertension- [...] Other chronic pain documented in this encounter [facility] HealthcareEvaluation note* Diagnosis Primary hypertension- [...] electrocardiogram (ECG) (EKG) documented in this encounter [facility] HealthcareEvaluation note* Diagnosis Primary hypertension- [...] of iron metabolism documented in this encounter [facility] HealthcareEvaluation note* Diagnosis Primary hypertension- [...] maxillary sinusitis Lymphocytopenia documented in this encounter [facility] HealthcareEvaluation note* Diagnosis Primary hypertension- [...] nasopharyngitis (common cold) documented in this encounter [facility] HealthcareEvaluation note* Diagnosis Primary hypertension- [...] of iron metabolism documented in this encounter [facility] Additional Instructions DISCHARGE INSTRUCTIONS FOR [...] NOT operate machinery such as power tools, [employer] mowers, [employer] blowers, sewing machines, etc. for 24 hours. [...] years. -Follow up with PCP. -Office number [phone]. [facility] Work Phone: InstructionsNot on filedocumented in this encounter [facility] No data available for this section [facility] reason for referral (narrative)No reason for referral information availableSumma Health Work Phone: Summary Purpose Family History No [...] and content) DATE CREATED AUTHOR 06/30/2022 [facility] DATE CREATED AUTHOR AUTHOR'S ORGANIZ ATION 12/14/2024 [facility] EPIC DATE CREATED AUTHOR AUTHOR'S ORGANIZ ATION 04/19/2025 [facility] DATE CREATED AUTHOR AUTHOR'S ORGANIZ ATION 05/15/2025 [facility] DATE CREATED AUTHOR AUTHOR'S ORGANIZ ATION 06/14/[address] [facility] Patient Care team informatio n (unrecognized section and content) Team Status: Active Member Role Status Dates Sophie Delarosa NP-C Primary Care Provider Active Team Status: Inactive [...] Care Provider Active Start: October 09, 2023 French Instructor Relationship Specialty Start Date End Date Shen Perez MD [address] [place] [phone] PCP - General Family Medicine 06/02/24 Zoraida Chavez NP [address] [place] [address] Nurse Practitioner Family Medicine 06/02/24 French Instructor Relationship Specialty Start Date End Date Shen Perez MD [address] [place] [phone] PCP - General Family Medicine 06/02/24 Zoraida Chavez NP [address] [place] [address] Nurse Practitioner Family Medicine 06/02/24 French Instructor Relationship Specialty Start Date End Date Shen Perez MD [address] [place] [address] PCP - General Family Medicine 06/02/24 Zoraida Chavez NP [address] [place] [phone] Nurse Practitioner Family Medicine 06/02/24 French Instructor Relationship Specialty Start Date End Date Shen Perez MD [address] [place] [address] PCP - General Family Medicine 06/02/24 Zoraida Chavez NP [address] [place] [address] Nurse Practitioner Family Medicine 06/02/24 French Instructor Relationship Specialty Start Date End Date Shen Perez MD [address] [place] [phone] PCP - General Family Medicine 06/02/24 Zoraida Chavez NP [address] [place] [address] Nurse Practitioner Family Medicine 06/02/24 French Instructor Relationship Specialty Start Date End Date Shen Perez MD [address] [place] [address] PCP - General Family Medicine 06/02/24 Zoraida Chavez NP [address] [place] [address] Nurse Practitioner Family Medicine 06/02/24 French Instructor Relationship Specialty Start Date End Date Shen Perez MD [address] [place] [address] PCP - General Family Medicine 06/02/24 Zoraida Chavez NP [address] [place] [address] Nurse Practitioner Family Medicine 06/02/24 French Instructor Relationship Specialty Start Date End Date Shen Perez MD [address] [place] [address] PCP - General Family Medicine 06/02/24 Zoraida Chavez NP [address] [place] [address] Nurse Practitioner Family Medicine 06/02/24 French Instructor Relationship Specialty Start Date End Date Shen Perez MD [address] [place] [address] PCP - General Family Medicine 06/02/24 Zoraida Chavez NP [address] [place] [address] Nurse Practitioner Family Medicine 06/02/24 French Instructor Relationship Specialty Start Date End Date Shaikh Carlos MD [address] [place] [address] PCP - General Internal Medicine 02/27/23 French Instructor Relationship Specialty Start Date End Date Shen Perez MD [address] [place] [address] PCP - General Family Medicine 06/02/24 Zoraida Chavez NP [address] [place] [address] Nurse Practitioner Family Medicine 06/02/24 French Instructor Relationship Specialty Start Date End Date Shen Perez MD [address] [place] [phone] PCP - General Family Medicine 06/02/24 Zoraida Chavez NP [address] [place] [address] Nurse Practitioner Family Medicine 06/02/24 French Instructor Relationship Specialty Start Date End Date Shen Perez MD [address] [place] [phone] PCP - General Family Medicine 06/02/24 Zoraida Chavez NP [address] [place] [address] Nurse Practitioner Family Medicine 06/02/24 French Instructor Relationship Specialty Start Date End Date Shen Perez MD [address] [place] [phone] PCP - General Family Medicine 06/02/24 Zoraida Chavez NP [address] [place] [phone] Nurse Practitioner Family Medicine 06/02/24 French Instructor Relationship Specialty Start Date End Date Shen Perez MD [address] [place] [address] PCP - General Family Medicine 06/02/24 Zoraida Chavez NP [address] [place] [address] Nurse Practitioner Family Medicine 06/02/24 French Instructor Relationship Specialty Start Date End Date Shen Perez MD [address] [place] [address] PCP - General Family Medicine 06/02/24 Zoraida Chavez NP [address] [place] [address] Nurse Practitioner Family Medicine 06/02/24 French Instructor Relationship Specialty Start Date End Date Shen Perez MD [address] [place] [phone] PCP - General Family Medicine 06/02/24 Zoraida Chavez NP [address] [place] [address] Nurse Practitioner Family Medicine 06/02/24 French Instructor Relationship Specialty Start Date End Date Shen Perez MD [address] [place] [phone] PCP - General Family Medicine 06/02/24 Zoraida Chavez NP [address] [place] [address] Nurse Practitioner Family Medicine 06/02/24 French Instructor Relationship Specialty Start Date End Date Shen Perez MD [address] [place] [address] PCP - General Family Medicine 06/02/24 Zoraida Chavez NP [address] [place] [address] Nurse Practitioner Family Medicine 06/02/24 French Instructor Relationship Specialty Start Date End Date Shen Perez MD [address] [place] [address] PCP - General Family Medicine 06/02/24 Zoraida Chavez NP [address] [place] [address] Nurse Practitioner Family Medicine 06/02/24 French Instructor Relationship Specialty Start Date End Date Shen Perez MD [address] [place] [address] PCP - General Family Medicine 06/02/24 Zoraida Chavez NP [address] [place] [address] Nurse Practitioner Family Medicine 06/02/24 French Instructor Relationship Specialty Start Date End Date Shen Perez MD [address] [place] [address] PCP - General Family Medicine 06/02/24 Zoraida Chavez NP [address] [place] [address] Nurse Practitioner Family Medicine 06/02/24 French Instructor Relationship Specialty Start Date End Date Shen Perez MD [address] [place] [address] PCP - General Family Medicine 06/02/24 Zoraida Chavez NP [address] [place] [address] Nurse Practitioner Family Medicine 06/02/24 French Instructor Relationship Specialty Start Date End Date Shen Perez MD [address] [place] [address] PCP - General Family Medicine 06/02/24 Zoraida Chavez NP [address] [place] [address] Nurse Practitioner Family Medicine 06/02/24 French Instructor Relationship Specialty Start Date End Date Shen Perez MD [address] [place] [address] PCP - General [facility] 06/02/24 Zoraida Chavez NP [address] [place] [address] Nurse Practitioner Family Medicine 06/02/24 Goals (unrecognized [...] BE BASED ON THE PRIMARY CLINICAL RECORDS. [facility]. provides no warranty or guarantee of the accuracy or completeness of information in this document.
[2025-06-16 14:36] LABS: Iron 100.0 ug/dL (65.0-175.0); Percent Iron Saturation 29.2 %; Total Iron Binding Capacity 342.0 ug/dL (250.0-450.0)
[2025-06-16 14:43] LABS: Ferritin 50.0 ng/mL (26.0-388.0)
[2025-06-17 04:07] LABS: Transferrin 296 mg/dL (177-329)
== END 2025-06-16 12:58 | disposition home or self-care (01) ==
LOC: LAB 12:59
PROVIDERS: PCP Nurse Practitioner; Visit Provider Nurse Practitioner
DX: D50.9 Iron deficiency anemia, unspecified (principal)
CPT/HCPCS: 36415; 82728; 83540; 83550; 84466

== ENCOUNTER 2025-07-05 07:28 | Outpatient (OUT) | payer OTHER, SELFPAY ==
--- OUTSIDE RECORDS SUMMARY | 2025-07-05 07:38 | XMS_ITS | Encounter Summary ---
Author Organization [facility] Address [address] [facility] [[email or web address]] [place] [address] Care Team Providers Care Outreach Associate Name Role Phone Shen Perez MD Primary Care Provider [phone] Debbie Chavez CRT Unavailable [phone] Shen Perez MD Unavailable Encounter Details DateTypeDepartmentCare Team (Latest Contact Info)Ncckvgfitqy54/20/2025Orders Only [facility] Family Medicine [address] [place] [address] Shen Perez MD [address] [place] [address] Social History Tobacco UseTypesPacks/DayYears UsedDateSmoking Tobacco: NeverPassive Smoke Exposure: NeverSmokeless Tobacco: NeverAlcohol UseStandard Drinks/WeekComments Never0 (1 standard drink = 0.6 oz pure alcohol)Humiliation, Afraid, Rape, and Kick questionnaireAnswerDate RecordedWithin the last year, have you been afraid of your partner or ex-partner?No08/25/2023Within the last year, have you been humiliated or emotionally abused in other ways by your partner or ex-partner?No 08/25/2023Within the last year, have you been kicked, hit, slapped, or otherwise physically hurt by your partner or ex-partner?No08/25/2023Within the last year, have you been raped or forced to have any kind of sexual activity by your part ner or ex-partner?No08/25/2023Social Connection and Isolation PanelAnswerDate RecordedIn a typical week, how many times do you talk on the phone with family, friends, or neighbors?Patient rrdppcby07/18/2023How often do you get together with friends or relatives?Once a week08/25/2023How often do you attend bahai or spiritism services?More than 4 times per year08/25/2023o you belong to any clubs or organizations such as bahai groups, unions, [employer] or athletic court ups, or school groups?Yes08/25/2023How often do you attend meetings of the clubs or organizations you belong to?Never08/25/2023re you , , , , never , or living with a partner?Nhxkhib2608/25/2023 AUDIT-CAnswerDate RecordedQ1: How often do you have a drink containing alcohol? Never08/25/2023Q2: How many drinks containing alcohol do you have on a typical day when you are drinking?Patient does not drink08/25/2023Q3: How often do you have six or more drinks on one occasion?Never08/25/2023Overall Financial Resource Strain (CARDIA)AnswerDate RecordedHow hard is it for you to pay for the very basics like food, housing, medical care, and heating?Patient declined 08/25/2023[facility]ew[facility] [place] of Occupational Health - Occupational Stress QuestionnaireAnswerDate RecordedDo you feel stress - tense, restless, nervous, or anxious, or unable to sleep at night because yourmind is troubled all the time - these days?Only a crdrge3908/25/2023Exercise Vital SignAnswerDate Recorded On average, how many days per week do you engage in moderate to strenuous exercise (like a brisk walk)?Patient gtkiwryd90/18/2023On average, how many minutes do you engage in exercise at this level?Patient aamtvyft11/18/2023Hunger Vital SignAnswerDate RecordedWithin the past 12 months, you worried that your food would run out before you got the money to buymore.Patient declined 08/25/2023Within the past 12 months, the food you bought just didn't last and you didn't have money to get more.Patient phglpugp56/18/2023RAPARE - TransportationAnswerDate RecordedIn the past 12 months, has lack of transportation kept you from medical appointments or from getting medications?No 08/25/2023In the past 12 months, has lack of transportation kept you from meetings, work, or from getting things needed for daily living?No08/25/2023 Housing Stability Vital SignAnswerDate RecordedIn the last 12 months, was there a time when you were not able to pay the mortgage or rent on time?No08/25/2023In the last 12 months, how many places have you lived?In the last 12 months, was there a time when you did not have a steady place to sleep or slept in ashelter (including now)?No08/25/2023Sex and Gender InformationValueDate RecordedSex Assigned at BirthNot on fileLegal CjfApno6204/29/2023 12:47 PM EDT Gender IdentityNot on fileSexual OrientationNot on filedocumented as of this encounter Plan of Treatment Not on file documented as of this encounter Procedures Procedure NamePriorityDate/TimeAssociated DiagnosisCommentsHM COLONOSCOPYRoutine 10/09/2023 9:52 AM ESTdocumented in this encounter Results * Hm Colonoscopy (10/09/2023 9:52 AM EST)Anatomical RegionLateralityModality Other Narrative Authorizing ProviderResult TypeResult StatusMarc Chris [facility] MAINTENANCE Final Result documented in this encounter Visit Diagnoses Not on filedocumented in this encounter Care Teams Team MemberRelationshipSpecialtyStart DateEnd Date Shen Perez MD PCP - GeneralFamily Medicine06/02/24 Shen Perez MD [address] [place] [address] PCP - Zsououm19/1/25 Debbie Chavez NP Nurse PractitionerFamily Medicine06/02/24documented as of this encounter
--- OUTSIDE RECORDS SUMMARY | 2025-07-05 07:38 | XMS_ITS | Clinical Summary ---
Author Organization [employer] Address [id number] [place] [address] Care Team Providers Care Real Estate Appraiser Supervisor Name Role Phone Shaikh MEG Carlos Primary Care Provider [phone] Allergies No known active allergies Medications MedicationSigDispense QuantityRefillsLast FilledStart DateEnd DateStatus clopidogreL (PLAVIX) 75 mg tablet Take 75 mg by mouth daily.Active meloxicam (MOBIC) 15 mg tablet Take 15 mg by mouth daily.09/27/2019Active metFORMIN (GLUCOPHAGE) 500 mg tablet Take 500 mg by mouth daily with breakfast.Active metoprolol succinate XL (TOPROL XL) 25 mg 24 hr tablet Take 1 tablet (25 mg total) by mouth in the morning. 90 tablet 2Active Active Problems ProblemNoted DateDiagnosed DateObesity (BMI 30-39.9)2Prediabetes 2Obesity (BMI 30-39.9)2Precordial pain12/10/2019 Family History Medical HistoryRelationNameCommentsHeart diseaseFatherHeart diseasePaternal GrandfatherRelationNameStatusCommentsFatherPaternal Grandfather Social History Tobacco UseTypesPacks/DayYears UsedDateSmoking Tobacco: NeverSmokeless Tobacco: Never Tobacco Cessation:Counseling Given: No Alcohol UseStandard Drinks/WeekCommentsNot Currently0 (1 standard drink = 0.6 oz pure alcohol)ChildcareAnswerDate YecnyqkgPiyvjbgevShgnmku02/12/2019Employment AnswerDate BarosspuTqijrqucvbJhkyxgu89/12/2019Purpose - LifeAnswerDate Recorded Purpose and direction in ycpnAucrwoh56/11/2021ex and Gender InformationValue Date RecordedSex Assigned at BirthNot on fileLegal BycJyfo5004/13/2015 12:02 PM EDTGender IdentityNot on fileSexual OrientationNot on file Last Filed Vital Signs Vital SignReadingTime TakenCommentsBlood Pxjnwwdb118/9006 2:07 PM EDT Zyzdn127403/01/2022 2:07 PM SNENnxlvqtiodx93.4 ??C (97.6 ??F)09/14/2021 9:59 PM ESTRespiratory Lmjz142809/14/2021 10:27 PM ESTOxygen Rskeflndqs11%03/01/2022 2:07 PM EDTInhaled Oxygen Concentration--Ahchsd586.4 kg (261 lb)03/01/2022 2:07 PM HWLOfwqiv230 cm (6' 4 )03/01/2022 2:07 PM EDTBody Mass Index31.77003/01/2022 2:07 PM EDT Plan of Treatment Health MaintenanceDue DateLast DoneCommentsDepression Rqrxszsiv33/12/1969Tobacco Lmypqxnlm07/12/1969Adult BMI Ahwdqcknj82/12/1975Fall Risk Funnqyrjg72/12/2022 COVID-19 Vaccine ( season)/04/2023, 07/04/2022, 12/07/2020, Additional history existsInfluenza Ahnpzfd03/, 06/15/2022, 06/15/2022, Additional history existsDTaP,Tdap and Td Vaccines (2 - Td or Tdap)Zoster (Shingles) GgfhnrkSaeainfur51/08/2020, 10/11/2019, 12/19/2016 Medical Devices Not on file Insurance Care Teams Team MemberRelationshipSpecialtyStart DateEnd Date Shaikh Carlos MD PCP - GeneralInternal Medicine02/27/23
--- OUTSIDE RECORDS SUMMARY | 2025-07-05 07:38 | XMS_ITS | Clinical Summary ---
Author Organization [facility] Address [address] [place] [address] Care Team Providers Care International Freight Forwarder Name Role Phone Shen Perez MD Primary Care Provider [phone] Debbie Chavez NP Unavailable [phone] Shen Perez MD Unavailable Allergies No known active allergies Medications MedicationSigDispense QuantityRefillsLast FilledStart DateEnd DateStatus tadalafil (Cialis) 10 MG tablet Take 20 mg by mouth.3Active aspirin 81 MG EC tablet Indications:TIA (transient ischemic attack)Take 1 tablet (81 mg) by mouth Daily 90 tablet 5Active metoprolol succinate XL (Toprol-XL) 50 MG 24 hr tablet Indications:Primary hypertensionTake 1 tablet (50 mg) by mouth Daily 90 tablet 5Active atorvastatin (Lipitor) 20 MG tablet Indications:Hyperlipidemia, unspecified hyperlipidemia typeTake 1 tablet (20 mg) by mouth Daily 90 tablet 5Active metFORMIN (Glucophage) 500 MG tablet Indications:PrediabetesTake 1 tablet (500 mg) by mouth in the morning and 1 tablet (500 mg) in the evening. Take with meals. 180 tablet 5Active dutasteride (Avodart) 0.5 MG capsule Take 0.5 mg by mouth DailyActive fluticasone (Flonase) 50 MCG/ACT nasal spray Indications:Acute rhinitisAdminister 1-2 sprays into each nostril Daily Shake gently. Before first use, prime pump. After use, clean tip and replace cap. 48 g 515Active ferrous sulfate (FeroSul) 325 (65 Fe) MG tablet Indications:Iron deficiencyTake 1 tablet (325 mg) by mouth in the morning. Take with meals. 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/28/2025 Feeling of incomplete bladder masgfcra29/11/2025bnormal EKG003/16/2025Hydrocele in adult12/17/2024 Assessment & Plan (04/12/2025 3:23 PM EDT): Has seen urology, is to have surgery this week Screening for prostate pzoxxu2312/13/2024 Overview (12/20/2024): PSA: 1.01 12/18/24 Swelling of left half of eltpqia2912/13/2024 Assessment & Plan (12/13/2024 10:30 AM EDT): Suspected inguinal hernia with hydrocele Check US TB MAR (obstructive sleep apnea)12/13/2024 Assessment & Plan (12/13/2024 10:37 AM EDT): [...] Doctor that manages your MAR: Addie Acute /17/2024Iron deficiency nqawcu8202/25/2024 Assessment & Plan (12/13/2024 6:34 AM EDT): Taking ferrous sulfate 325mg daily Check labs Assessment & Plan (02/25/2024 3:37 PM EDT): On PO iron. Anemia more or less resolved 03/01 Normal colonoscopy 11/01 C/w same. No overt/Occult GI bleeding noted. Chronic pain of left knee02/25/2024 Assessment & Plan (02/25/2024 3:46 PM EDT): Chronic knee pain x 6 months. Acutely worsened for no specific reason x 1-2 week. Denies injury. Noprior hx of left knee surgery. No recent XR. Patient previously had right knee intra articular steroid injection and did well He previously saw dr may and will follow up with him after XR is done Chronic left shoulder pain02/25/2024 Assessment & Plan (02/25/2024 3:41 PM EDT): Left shoulder pain, chronic for 8 months, progressively getting worse. Denies change in ROM. Pain is persistent, affecting his quality of life Will get an XR. Patient seens dr may and was instructed to follow up with him after XR is done BPH with urinary lphpybtcfru51/19/2023 Assessment & Plan (12/13/2024 6:33 AM EDT): Current medication: tamsulosin Assessment & Plan (02/25/2024 3:38 PM EDT): Following Urology. On Flomax. Uses it q12. Symptoms controlled Assessment & Plan (08/26/2023 4:24 PM EST): Following Urology. On Flomax. ED (erectile dysfunction)08/26/2023 Assessment & Plan (12/13/2024 6:33 AM EDT): Currently taking cialis daily Assessment & Plan (02/25/2024 3:35 PM EDT): On Cialis, working well for him Pgoeoddtcbphmg45/19/2023 Assessment & Plan (12/13/2024 6:35 AM EDT): On statin therapy Check labs yearly and prn dose changes Assessment & Plan (08/24/2024 3:41 PM EST): Currently taking Atorvastatin 20mg Denies any myalgias. Continue current regimen. Assessment & Plan (02/25/2024 3:35 PM EDT): On lipitor 20. Lipid panel 03/01 LDL at goal Assessment & Plan (08/26/2023 4:25 PM EST): On Lipitor. Cuhwyvxqpvmp70/19/2023 Assessment & Plan (04/12/2025 7:05 AM EDT): [...] elevated BP. C/w Toprol TIA (transient ischemic attack)08/26/2023 Assessment & Plan (02/25/2024 3:34 PM EDT): Prior hx of TIA. No residual symptoms. On ASA, statin. Assessment & Plan (08/26/2023 4:24 PM EST): Prior hx of TIA. No residual symptoms. Has been on Plavix for years now. Never put on ASA. Discussed with patient - he will switch to ASA. No need to be on Plavix. Encounter for screening for malignant neoplasm of colon08/26/2023 Assessment & Plan (08/26/2023 4:25 PM EST): Prior hx of colonic polyps about 5 years ago. Referred to GI for repeat Colonoscopy. Wellness rzalomwybhc49/19/2023 Assessment & Plan (08/26/2023 4:27 PM EST): Doing well overall. Tolerating meds w/o adverse effects. Reviewed medical, surgical and social hx. Reviewed medications. Patient forgot to get labs done that were ordered last appt. He will get thosedone as early as possible. Referred to GI for Colonoscopy. Recommended to get pneumonia vaccine. Ctyyvvdkpay13/24/2022 Assessment & Plan (04/12/2025 2:55 PM EDT): [...] working for him. Doing well. Resolved Problems ProblemNoted DateDiagnosed DateResolved DatePre-honhmvrm35/ Swelling of left xaqmnvet02URTI (acute upper respiratory infection)/03/2025 Assessment & Plan (08/26/2023 4:28 PM EST): Reports sinus congestion, sore throat x 1 week. Symptoms improving. Exam revealed hyperemic external ear canal and TM b/l. No fluid noted. Hyperemic oropharyngeal mucosa. Likely viral URTI. Supportive care, monitor. Call office if symptoms start to worsen. Encounters DateTypeDepartmentCare ShaxHytmiofisxr19/20/2025Orders Only [facility] [address] [place] [address] Shen Perez MD 05/03/2025Refill [facility] [address] [place] [address] Sophie Delarosa NP Iron qxdakkdsch27/26/2025[facility] [address] [place] [address] Sophie Delarosa NP Acute ynqkjakw23/05/2025 2:20 PM EDTOffice Visit [facility] [address] [place] [address] Sophie Delarosa NP Prediabetes (Primary Dx); Primary hypertension ; Hydrocele in adult; Acute non-recurrent maxillary sinusitis; Hkvecqdnljutjvk60/05/2025amboo flowsheet [facility] [address] [place] [address] Sophie Delarosa NP 04/05/2025bstract [facility] [address] [place] [address] Sophie Delarosa, DAYNE 04/04/2025[facility] [address] [place] [address] Shen Perez MD Iron deficiencyfrom Last 3 Months Immunizations ImmunizationAdministration DatesNext DueInfluenza, High Dose Seasonal, Preservative Free07/10/2024Influenza, Seasonal, Quadrivalent, Adjuvanted 06/22/2023,06/15/2022Influenza, Moghunlpuib77/02/2024,06/08/2024,06/22/2023, 06/15/2022,06/30/2020,07/29/2019,07/17/2018Influenza, injectable, MDCK, preservative free, zpcplfyprflq77/09/2018Influenza, injectable, quadrivalent, preservative free06/30/2020,07/29/2019Influenza, seasonal, vnnznspkuu42/01/2024 Novel wncjycxek-C0D8-33, preservative-free09/18/2009Pneumococcal Conjugate PCV 4RSV, recombinant, protein subunit RSVpreF, adjuvant reconstitu, 120mcg/0.5mL, PF (Arexvy)08/15/2023Tdap1Zoster, Crkttsvmwiq25/08/2020, 10/11/2019Zoster, live12/19/2016 Family History Medical HistoryRelationNameCommentsDiabetesFatherHeart diseaseFatherHypertension FatherHeart diseaseMaternal GrandfatherDiabetesMotherHypertensionMotherRelation NameStatusCommentsFatherDeceasedMaternal GrandfatherMotherDeceased Social History Tobacco UseTypesPacks/DayYears UsedDateSmoking Tobacco: NeverPassive Smoke Exposure: NeverSmokeless Tobacco: Never Tobacco Cessation:Counseling Given: Not Answered Alcohol UseStandard Drinks/WeekCommentsNever0 (1 standard drink = 0.6 oz pure alcohol)Humiliation, Afraid, Rape, and Kick questionnaireAnswerDate Recorded Within the last year, have you been afraid of your partner or ex-partner?No 08/25/2023Within the last year, have you been humiliated or emotionally abused in other ways by your partner or ex-partner?No08/25/2023Within the last year, have you been kicked, hit, slapped, or otherwise physically hurt by your partner or ex-partner?No08/25/2023Within the last year, have you been raped or forced to have any kind of sexual activity by your partner or ex-partner?No08/25/2023 Social Connection and Isolation PanelAnswerDate RecordedIn a typical week, how many times do you talk on the phone with family, friends, or neighbors?Patient hmhrlhir24/18/2023How often do you get together with friends or relatives?Once a week08/25/2023How often do you attend advent or evangelical services?More than 4 times per year08/25/2023o you belong to any clubs or organizations such as advent groups, unions, fraternal or athletic groups, or school groups?Yes 08/25/2023How often do you attend meetings of the clubs or organizations you belong to?Never08/25/2023re you , , , , never , or living with a partner?Rspnksf3908/25/2023UDIT-CAnswerDate RecordedQ1: How often do you have a drink containing alcohol?Never08/25/2023Q2: How many drinks containing alcohol do you have on a typical day when you are drinking? Patient does not drink08/25/2023Q3: How often do you have six or more drinks on one occasion?Never08/25/2023Overall Financial Resource Strain (CARDIA)AnswerDate RecordedHow hard is it for you to pay for the very basics like food, housing, medical care, and heating?Patient /18/2023[facility] [place] of Occupational Health - Occupational Stress QuestionnaireAnswerDate RecordedDo you feel stress - tense, restless, nervous, or anxious, or unable to sleep at night because yourmind is troubled all the time - these days?Only a rkxapc5108/25/2023 Exercise Vital SignAnswerDate RecordedOn average, how many days per week do you engage in moderate to strenuous exercise (like a brisk walk)?Patient declined 08/25/2023On average, how many minutes do you engage in exercise at this level? Patient xiagmpcv25/18/2023Hunger Vital SignAnswerDate RecordedWithin the past 12 months, you worried that your food would run out before you got the money to buy more.Patient yyjohgfn94/18/2023Within the past 12 months, the food you bought just didn't last and you didn't have money to get more.Patient declined 08/25/2023RAPARE - TransportationAnswerDate RecordedIn the past 12 months, has lack of transportation kept you from medical appointments or from getting medications?No08/25/2023In the past 12 months, has lack of transportation kept you from meetings, work, or from getting things needed for daily living?No 08/25/2023Housing Stability Vital SignAnswerDate RecordedIn the last 12 months, was there a time when you were not able to pay the mortgage or rent on time?No 08/25/2023In the last 12 months, how many places have you lived?In the last 12 months, was there a time when you did not have a steady place to sleep or slept in revereelt (including now)?No08/25/2023Sex and Gender InformationValueDate RecordedSex Assigned at BirthNot on fileLegal SexMale 04/29/2023 12:47 PM EDTGender IdentityNot on fileSexual OrientationNot on file Last Filed Vital Signs Vital SignReadingTime TakenCommentsBlood Ndihwnrx391/7608 2:30 PM EDT Cqcoz160604/12/2025 2:30 PM YOOJfipzpdaztv16.9 ??C (98.5 ??F)04/12/2025 2:30 PM EDTRespiratory Xeyr161904/12/2025 2:30 PM EDTOxygen Fjpmzjbkmf39%04/12/2025 2:30 PM EDTInhaled Oxygen Concentration--Lifwon811 kg (255 lb 12.8 oz)04/12/2025 2:30 PM LXJAjamut973 cm (6' 4 )08/24/2024 3:25 PM ESTBody Mass Index31.14110/25/2023 3:25 PM EST Plan of Treatment Health MaintenanceDue DateLast DoneCommentsCT Mpmxhhouqoxf1957FIT-DNA 1957FIT1957FOBT1955 0024Muuikkyhcbddp1957Medicare Annual Wellness (AWV)Influenza Vaccine (#1), 07/10/2024, 06/08/2024, Additional history kazbpmYkjttbepnij59/01/2034 10/09/2023, 10/07/2017Colorectal Cancer Dnwslmajc16/01/2034neumococcal Vaccine: 65+ JrojbZonmacupo73/06/2024 Procedures Procedure NamePriorityDate/TimeAssociated DiagnosisCommentsPOCT GLYCOSYLATED HEMOGLOBIN (HGB A1C)Xeeibfz3604/12/2025 2:42 PM EDT Prediabetes YSPBLIUIPSBLnhgvap21/01/2024 9:52 AM ESTfrom Last 3 Months or Most Recently Relevant to Health Maintenance Results * (ABNORMAL) POCT glycosylated hemoglobin (Hb A1C) docked device (04/12/2025 2:42 PM EDT)ComponentValueRef RangeTest MethodAnalysis TimePerformed At Pathologist SignatureHemoglobin A1C6.3Specimen (Source)Anatomical Location / LateralityCollection Method / VolumeCollection TimeReceived TimeBloodVenous blood specimen / Brmgeoa0604/12/2025 2:42 PM EDT Narrative Authorizing ProviderResult TypeResult StatusLisa Aichholz NPPOINT OF CARE TEST ENTER/EDIT ORDERABLESFinal Result * Colonoscopy (10/09/2023 9:52 AM EST)Anatomical RegionLateralityModality Other Narrative Authorizing ProviderResult TypeResult StatusShen Perez MDHEALTH MAINTENANCE Final Result from Last 3 Months or Most Recently Relevant to Health Maintenance Insurance Care Teams Team MemberRelationshipSpecialtyStart DateEnd Date Shen Perez MD PCP - Generalmily Medicine06/02/24 Shen Perez MD [address] [place] [address] PCP - Wgqnodl38/1/25 Debbie Chavez NP Nurse PractitionerFamily Medicine06/02/24
--- OUTSIDE RECORDS SUMMARY | 2025-07-05 07:38 | XMS_ITS | Clinical Summary ---
Author Organization [facility] Address [address] [place] [address] Care Team Providers Care Beehive Kiln Supervisor Name Role Phone Sophie Delarosa MD Primary Care Provider [phone] Allergies No known active allergies Medications MedicationSigDispense QuantityRefillsLast FilledStart DateEnd DateStatus metFORMIN (Glucophage) 500 mg tablet Take 500 mg by mouth with breakfast and with evening meal.05/20/2023ctive meloxicam (Mobic) 15 mg tablet Take 15 mg by mouth in the morning.Active metoprolol succinate XL (Toprol-XL) 50 mg 24 hr tablet Take 50 mg by mouth in the morning.Active FeroSuL 325 mg (65 mg iron) tablet TAKE 1 TABLET BY MOUTH IN THE MORNING WITH MEALSActive aspirin 81 mg EC tablet Take 81 mg by mouth in the morning.5Active atorvastatin (Lipitor) 20 mg tablet Take 20 mg by mouth in the morning.05/20/2023ctive dutasteride (Avodart) 0.5 mg capsule Take 0.5 mg by mouth in the morning.5Active busPIRone (Buspar) 5 mg tablet Take 1 tablet by mouth Twice daily at 6am and 6pm.06/07/2025tive fluticasone (Flonase) 50 mcg/actuation nasal spray Administer 1 spray into each nostril in the morning.Active tadalafil (Cialis) 10 mg tablet Take 10 mg by mouth if needed each day.5Active Active Problems ProblemNoted DateDiagnosed DateStatus post repair of szkxaxefe15/03/2025ute non-recurrent maxillary xeqdovjme97/05/4843Lmlikqwukpdyvgj88/05/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 without nghmyfl8003/28/20256301Allsjioxdygqen31/11/3010Uqgfzpxk95/11/2025 Feeling of incomplete bladder pczkxhaq64/11/2025History of kidney stones 03/18/20253569Vzfvftodd21/11/2025bnormal EKG003/16/2025Hydrocele in adult12/17/2024 MAR (obstructive sleep apnea)12/13/2024Swelling of left half of scrotum 12/13/2024ute /17/2024hronic left shoulder pain02/25/2024hronic pain of left knee02/25/2024Iron deficiency saosmw2202/25/2024PH with urinary kfkvikxsgsg37/19/2023ED (erectile dysfunction)08/26/20235031Sanvqurjpxvanr88/19/2023 Komammwejazq30/19/2023reoperative evaluation to rule out surgical qeqzlavhnqjwpzxr46/19/2023TIA (transient ischemic attack)08/26/2023rediabetes 2Obesity (BMI 30-39.9)12/03/2021recordial pain12/10/2019 Encounters DateTypeDepartmentCare DsweZublvxcvqpl46/03/2025 3:20 PM EDTOffice Visit [facility] [address] [address] Mallory Reyes MD Atypical chest pain (Primary Dx); Abnormal EKG; TIA (transient ischemic attack); Primary hypertension; Pure hypercholesterolemia; Type 2 diabetes mellitus without complication, without long-term current use of insulin ([facility]); Obesity (BMI 30-39.9); MAR (obstructive sleep apnea)from Last 3 Months Family History Medical HistoryRelationNameCommentsCABGFatherCoronary artery diseaseFatherHeart attackFatherCoronary artery diseaseMaternal GrandfatherpacemakerMaternal GrandfatherRelationNameStatusCommentsFatherDeceasedMaternal GrandfatherMother Social History Tobacco UseTypesPacks/DayYears UsedDateSmoking Tobacco: NeverSmokeless Tobacco: Never Tobacco Cessation:Counseling Given: Not Answered Alcohol UseStandard Drinks/WeekCommentsNot Currently0 (1 standard drink = 0.6 oz pure alcohol)Sex and Gender InformationValueDate RecordedSex Assigned at Male06/10/2025 2:39 PM EDTLegal WxjTswn4403/16/2025 1:59 PM EDTGender IdentityMale 06/10/2025 2:39 PM EDTSexual OrientationHeterosexual or Khsylzik98/03/2025 2:39 PM EDT Last Filed Vital Signs Vital SignReadingTime TakenCommentsBlood Pthmusjn318/6906/10/2025 2:59 PM EDT Cowmf233106/10/2025 2:59 PM EDTTemperature--Respiratory Rate--Oxygen Faqxwqsokn62% 06/10/2025 2:59 PM EDTInhaled Oxygen Concentration--Nocdyu162 kg (270 lb) 06/10/2025 2:59 PM EDOKgephg692 cm (6' 4 )06/10/2025 2:59 PM EDTBody Mass Index 32.8706/10/2025 2:59 PM EDT Plan of Treatment DateTypeDepartmentCare Team (Latest Contact Info)Sgyfxahhpea70/07/2025 9:00 AM ESTOffice Visit [facility] [address] [place] [address] Mallory Reyes MD [address] [place] [address] Health MaintenanceDue DateLast DoneCommentsCT Sgjhrrzabtjl1957Colonoscopy 1957Colorectal Cancer Tacvlaysx1957Diabetes: Hemoglobin A1C 1957FIT-DNA1957FIT1957FOBT1957Medicare Annual Wellness (AWV)1955 2353Sxrkdplvjpyba1957Diabetes: Retinopathy Spfsnltik02/12/1967 Depression Kyuiewsik38/12/1969Diabetes: Urine Protein Jtoyssaui55/12/1976Fall Risk Pnjvqyjcq94/12/2022OVID-19 Vaccine ( season)2025 07/10/2024, 08/15/2023, 07/04/2022, Additional history existsInfluenza Vaccine (#1)5109/09/2023, 06/08/2024, 06/22/2023, Additional history existsAdult Asgsmmz09Zoster PgyflfkhTrlqwxtcc22/08/2020, 10/11/2019, 12/19/2016Pneumococcal Vaccine: 50+ AbiomOjxuudnda58/06/2024HIB VaccinesAged Out No longer eligible based on patient's age to complete this topicHPV VaccinesAged OutNo longer eligible based on patient's age to complete this topicIPV Vaccines Aged OutNo longer eligible based on patient's age to complete this topic Meningococcal B VaccineAged OutNo longer eligible based on patient's age to complete this topicMeningococcal VaccineAged OutNo longer eligible based on patient's age to complete this topicRotavirus VaccinesAged OutNo longer eligible based on patient's age to complete this topic Insurance Care Teams Team MemberRelationshipSpecialtyStart DateEnd Date Sophie Delarosa MD [address] [place] [id number] PCP - GeneralNurse Practitioner03/16/25
--- OUTSIDE RECORDS SUMMARY | 2025-07-05 07:47 | XMS_ITS | CCD ---
Author Organization [facility] Care Team Providers Care V Belt Mold Assembler And Curer Name Role Phone SHAIKH Best CARLOS Admitting Unavailable SHAIKH Best CARLOS Attending Unavailable SHAIKH Best CARLOS Primary Care Unavailable SHAIKH Best CARLOS Consulting Unavailable SHAIKH CARLOS Primary Care Physician Shen Perez MD Primary Care Provider Scott JAVASCRIPT WEB DEVELOPER, Zoraida Unavailable Shaikh Carlos MD Primary Care Provider [phone] Scott JAVASCRIPT WEB DEVELOPER, Zoraida Unavailable [phone] SHAIKH CARLOS Attending Unavailable APLING, BARBARA Cuenca Attending Unavailable APLKEELEY, BARBARA Cuenca Attending Unavailable APLKEELEY, BARBARA Cuenca Attending Unavailable ABDI, BARBARA Cuenca Attending Unavailable ZORAIDA CHAVEZ Attending UnavailSOPHIE Garcia Attending Unavailable Drew Pérez MD Attending Provider [phone] Drew Pérez Attending Unavailable Drew Pérez Admitting Unavailable SOPHIE DELAROSA Primary Care Physician [phone] Drew PÉREZ Attending Unavailable Drew PÉREZ Attending Unavailable Drew PÉREZ Attending Unavailable Drew PÉREZ Attending Unavailable Drew PÉREZ Attending Unavailable Drew PÉREZ Attending Unavailable Drew PÉREZ Attending Unavailable Drew PÉREZ Attending Unavailable SOPHIE DELAROSA Referring Unavailable Clinton Marr DO Attending Provider [place] JAVASCRIPT WEB DEVELOPER-C, Sophie Retana Primary Care Provider [place] JAVASCRIPT WEB DEVELOPER-C, Sophie Retana Attending Provider MISAEL REYES Attending Unavailable MISAEL REYES Attending Unavailable Allergies Allergy ClassificationReported Allergen(s)Allergy TypeDate of OnsetReaction(s) Facility (1 source)No Known Medication Allergies; Translations: [No Known Medication Allergies]Propensity to adverse reactions (disorder)[facility] Medications Current Medications MedicationDrug Class(es)DatesSig (Normalized)Sig (Original)amoxicillin 875 mg / clavulanate 125 mg oral tablet (2 sources)Penicillin-class AntibacterialStart: 04-12-2025 End: 42-95-7993xisc 1 tablet by mouth in the morningamoxicillin-clavulanate (Augmentin) 875-125 MG tablet Indications: Acute non-recurrent maxillary sin usitis Take 1 tablet (875 mg) by mouth in the morning and 1 tablet (875 mg) before bedtime. Do all this for 10 days. 10 tablet 04/12/2025 04/22/2025 Active aspirin 81 mg oral capsule (20 sources)Platelet Aggregation Inhibitor, Nonsteroidal Anti-inflammatory Drug Start: 12-27-2322yatp 1 capsule by mouth once dailyaspirin 81 mg oral capsule 81 mg = 1 cap(s), Oral, Daily Start Date: 01/03/25 Status: Ordered Repeatnumber: 1 Start: 08-26-2023 End: 71-03-8490bkbp 1 tablet by mouth once dailyatorvastatin 20 mg oral tablet (20 sources)HMG-CoA Reductase InhibitorStart: 2023 End: 71-99-8310zajo 1 tablet by mouth once dailycetirizine hydrochloride 10 mg oral tablet (7 sources)Histamine-1 Receptor AntagonistStart: 08-24-2024 End: 69-80-5021wmqg 1 tablet by mouth once dailycetirizine (ZyrTEC) 10 MG tablet Indications: Acute rhinitis Take 1 tablet (10 mg) by mouth Daily 30 tablet 2 08/24/2024 12/13/2024 Discontinued (Therapy completed)diclofenac sodium 0.01 mg/mg topical gel (17 sources)Nonsteroidal Anti-inflammatory DrugStart: 2023 End: 77-66-7435kajokikdll topical 1% gel Refill(s) 0 Start Date: 05/20/23 Status: Ordered Repeat number: 1dutasteride 0.5 mg oral capsule (8 sources)5-alpha Reductase InhibitorStart: 14-54-3421evdj 1 capsule by mouth once dailydutasteride 0.5 mg Cap 0.5 mg = 1 cap(s), Oral, Daily, # 90 cap(s), Refills(s) 3, Pharmacy: [facility] 1429, 192, cm, 01/03/25 12:43:00 EDT, Height/Length Dosing, 122.9, kg, 01/03/25 12:43:00 EDT, Weight Dosing Start Date: 01/03/25 Status: Ordered Quantity: 90.0 Unit: cap(s) Repeat number: 4 In dications: Benign prostatic hyperplasia with lower urinary tract symptoms; ferrous sulfate 325 mg oral tablet (20 sources)Start: 10-09-2023 End: 54-65-1527hpgu 1 tablet by mouth once dailyfluticasone propionate 0.05 mg/actuat metered dose nasal spray (20 sources)CorticosteroidStart: 08-24-2024 End: 88-40-7868azrj 1-2 spray(s) nasal route once dailyfluticasone (Flonase) 50 MCG/ACT nasal spray Indications: Acute rhinitis Administer 1-2 sprays intoeach nostril Daily Shake gently. Before first use, prime pump. After use, clean tip and replace cap. 48 g 1 05/03/2025 08/01/2025 Activemeloxicam 15 mg oral tablet (20 sources)Nonsteroidal Anti-inflammatory DrugStart: 09-27-2019 End: 78-94-9797qqln 1 tablet by mouth once dailymetFORMIN hydrochloride 500 mg oral tablet (20 sources)BiguanideStart: 2023 End: 82-45-6833hzoi 1 tablet by mouth twice dailytake 1 tablet by mouth once daily at breakfastmetFORMIN (GLUCOPHAGE) 500 mg tablet Take 500 mg by mouth daily with breakfast. 0 Ivonta36 hr metoprolol succinate 50 mg extended release oral tablet (20 sources)beta-Adrenergic BlockerStart: 2023 End: 22-19-8955tjir 1 tablet by mouth once dailyStart: 36-47-9370qzdr 1 tablet by mouth every twenty-four hours in the morningmetoprolol succinate XL (TOPROL XL) 25 mg 24 hr tablet Take 1 tablet (25 mg total) by mouth in the morning. 90 tablet 2 01/21/2022 ActiveMultivitamin preparation (4 sources)Start: 33-12-0153tawwcrwqwwmt Refill(s) 0 Start Date: 05/20/23 Status: Ordered Repeat number: 1Start: 87-67-4359skfsovkodyie Refill(s) 0 Start Date: 05/20/23 Status: Orderedtadalafil 10 mg oral tablet (20 sources)Phosphodiesterase 5 InhibitorStart: 10-09-2023 End: 54-03-8654Thbse: 45-55-1343rgrm 2 tablets by mouth once daily as needed Cialis 10 mg Tab 20 mg = 2 tab(s), Oral, Daily, PRN for erectile dysfunction, Refills(s) 0 Start Date: 05/20/23 Status: Ordered Repeat number: 1tamsulosin hydrochloride 0.4 mg oral capsule (20 sources)alpha-Adrenergic BlockerStart: 11-29-2024 End: 39-22-7469sien 1 capsule by mouth every twenty-four hours in the morning tamsulosin (Flomax) 0.4 MG 24 hr capsule Indications: BPH with urinary obstruction Take 1 capsule (0.4 mg) by mouth in the morning and 1 capsule (0.4 mg) before bedtime. 180 capsule 1 03/06/2025 06/04/2025 ActiveStart: 02-25-2024 End: 74-83-7533aswy 1 capsule by mouth every twenty-four hours in the morning tamsulosin (Flomax) 0.4 MG 24 hr capsule Indications: BPH with urinary obstruction Take 1 capsule (0.4 mg) by mouth in the morning and 1 capsule (0.4 mg) before bedtime. 180 capsule 08/24/2024 11/22/2024 ActiveStart: 2023 take 1 capsule by mouth twice daily Completed/Discontinued Medications MedicationDrug Class(es)DatesSig (Normalized)Sig (Original)ciprofloxacin 500 mg oral tablet (1 source)Quinolone AntimicrobialStart: 88-96-5482ngrg 1 tablet by mouth once dailyCipro 500 mg Tab 500 mg = 1 tab(s), Oral, Daily, take one tab day before procedure and one tab after procedure, # 2 tab(s), Refills(s) 0, Pharmacy: [facility] 1429, 192, cm, 01/03/25 12:43:00 EDT, Height/Length Dosing, 122.9, kg, 01/03/25 12:43:00 EDT, Weight Dosing Start Date: 01/03/25 Status: Ordered Quantity: 2.0 Unit: tab(s) Repeat number: 1clopidogrel 75 mg oral tablet (8 sources)P2Y12 Platelet InhibitorStart: 2023 End: 00-83-0872awfu 1 tablet by mouth once dailyClopidogrel 75 mg tablet Discontinued 75 MG PO Daily October 09, 2023 1:00am October 09, 2023 10:29am 1 ml methylPREDNISolone acetate 40 mg/ml injection (4 sources)CorticosteroidStart: 06-23-2024 End: 09-37-4555dhezxyBNWUDKLgdjet acetate (DEPO-Medrol) injection 40 mgStart: 06-23-2024 End: 11-94-375375 mg, Intra-articular, Once PRN Procedure, Starting on Fri06/23/24 at 0806, For 1 dose Problems Active Problems Problem ClassificationProblemDateDocumented DateEpisodic/ChronicAortic; peripheral; and visceral artery aneurysms (7 sources)Aneurysm of aortic arch; 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]Onset: 569360-73-6773QbhnoioGeupoame of urinary tract (4 sources)History of calculus of fhkozq83-30-2773KkldmhgcQbbydff dysrhythmias (2 sources)Ventricular premature depolarization; Translations: [Ventricular premature depolarization]Onset: 71-20-5679UxgfsitVgkijonzde and other anemia (20 sources)Iron deficiency anemia; Translations: [Iron deficiency anemia, unspecified]Onset: 199159-54-1081DopdrzflJjjcinwh mellitus without complication (5 sources)Type 2 diabetes mellitus without complications; Translations: [Diabetes mellitus]Onset: 729088-66-1043VwzsrkgUzxpyejy mellitus without complication (20 sources)Prediabetes; Translations: [Prediabetes]Onset: 03-01-2022 Resolved: 037279-14-3695MvzbzdeoEsapdova of white blood cells (7 sources)Lymphocytopenia; Translations: [Lymphocytopenia]Onset: 04-12-2025 22-03-8398LwzlnzrLraatybjx of lipid metabolism (20 sources)Hyperlipidemia, unspecified; Translations: [Hyperlipidemia]Onset: 601638-42-9661DmyjlqlEigctaqfv hypertension (20 sources)Essential (primary) hypertension; Translations: [Hypertensive disorder]Onset: 08-67-0683JogawbgLhroyckuwnwfs symptoms and ill-defined conditions (8 sources)Sensation as if bladder still full; Translations: [Feeling of incomplete bladder emptying]Onset: 70-59-8517WagpmrhiCifianmpeqm of prostate (20 sources)Benign prostatic hyperplasia with lower urinary tract symptoms; Translations: [Benign prostatic hypertrophy with outflow obstruction]Onset: 94-73-8330AmgrcbgQvmafkkykpc chest pain (3 sources)Precordial pain; Translations: [Precordial pain]Onset: 12-10-2019 86-88-8084IubmrgvoKbulovkuwrk deficiencies (6 sources)Iron deficiency; Translations: [Iron deficiency]76-24-6605Mpvjefla Osteoarthritis (6 sources)Arthritis; Translations: [Arthritis of left knee]23-37-7269Uoyyzih Other aftercare (4 sources)Long-term current use of anticoagulant; Translations: [MCFP (current) use of anticoagulants]Onset: 05-60-1793UaeaykijIbafq male genital disorders (20 sources)Male erectile dysfunction, unspecified; Translations: [Erectile dysfunction]Onset: 62-24-4487RdrrqiaSfhzh male genital disorders (20 sources)Swelling of left half of scrotum; Translations: [Other specified disorders of the male genital organs]Onset: 889772-66-9951ZcjqqewgZnlfk male genital disorders (20 sources)Adult hydrocele; Translations: [Hydrocele, unspecified]Onset: 646987-68-9424ZjokfrsqMgtnd male genital disorders (2 sources)Hydrocele of testis; Translations: [Hydrocele, unspecified]Onset: 87-90-1109QtcrfqygNdmil male genital disorders (3 sources)Disorder of male genital -67-1344DvpksejoYkyed nervous system disorders (5 sources)Chronic pain; Translations: [Other chronic pain]93-48-5927Zhjtsdr Other non-traumatic joint disorders (2 sources)Arthritis of left aqrp96-05-3794QuaugybOzhux non-traumatic joint disorders (20 sources)Pain in left knee; Translations: [Pain in joint, lower leg]Onset: 449452-76-7826FskeykhzRcibo non-traumatic joint disorders (20 sources)Chronic pain of left upper limb; Translations: [Pain in left shoulder]Onset: 752399-85-2050NesfypdqTqcvg nutritional; endocrine; and metabolic disorders (2 sources)Body mass index 30+ - obesity; Translations: [Obesity, unspecified] Onset: 917943-09-3338WfydgceQqdme upper respiratory infections (20 sources)Acute upper respiratory infection; Translations: [Acute upper respiratory infection, unspecified]Onset: 08-26-2023 Resolved: 324279-20-3503MrqqafefUecytlyq codes; unclassified (20 sources)Obstructive sleep apnea syndrome; Translations: [Obstructive sleep apnea (adult) (pediatric)]Onset: 059996-32-4969UjykpkjPyllwaez codes; unclassified (1 source)Past history of procedure; Translations: [Other specified postprocedural states]Onset: 19-22-1665NhgmpptqKembgadpu cerebral ischemia (20 sources)Transient cerebral ischemia; Translations: [Transient cerebral ischemic attack, unspecified]Onset: 467121-62-5609SifmijiNoznhfibwrce (4 sources)Drug therapy awxgfqo62-12-0792Yvpvfttokbzp (4 sources)Finding of sensation of gyvfhwl15-27-9888Acuwucyirmom (4 sources)Patient encounter tbegmq81-51-8979Rpglnqegmuqj (2 sources)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Onset: 06-10-2025 Past or Other Problems Problem ClassificationProblemDateDocumented DateEpisodic/ChronicDeficiency and other anemia (1 source)Anemia; Translations: [Anemia, unspecified]92-49-1695RxajqievUdiaf male genital disorders (20 sources)Swelling of testicle; Translations: [Other specified disorders of the male genital organs]Onset: 12-13-2024 Resolved: 422666-40-1219MdinvyzrAylou screening for suspected conditions (not mental disorders or infectious disease) (20 sources)Encounter for screening for malignant neoplasm of prostate; Translations: [Screening for malignant neoplasm done]Onset: 92-99-9835Xzoiwycm Results Test NameValueInterpretationReference RangeFacilityOffice Visiton 06-10-2025 Follow-up [id number] Marti Morgan 1955 M Date Provider Department Center 06/10/2025 50386-NICQUJMISAEL REYES JASPER [facility] Family History Problem Relation Age of Onset Heart attack Father Coronary artery disease Father Other Father Coronary artery disease Maternal Grandfather Other Maternal Grandfather Family Status - Relation Status Age at Mother Father Maternal Grandfather Level of Service:15714 SD OFFICE/OUTPATIENT ESTABLISHED LOW MDM 20 MIN Reason for Visit and Comments: Follow-up [807678] - Patient is here today for a follow up appointment. Patient was recently seen in the [facility] ER for chest pain. Patient complains of anxiety, chest pain/pressure. Hyperlipidemia [182] Hypertension [504096] Transient Ischemic Attack [542637] Chest Pain [908903] - Precordial pain 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 [Other]NormalSt. Vincent HospitalBasophils Auto (Bld) [#/Vol]Ordered By: Clinton Marr on 75-18-0735Symybmcqg (Bld) [#/Vol]0.1 10 3/uL0.0-0.1FUniversity Hospitals TriPoint Medical CenterBasophils/100 WBC Auto (Bld)Ordered By: Clinton Marr on 06-03-2025 Basophils/100 WBC (Bld)0.8 %0.2-2.0[facility] Eosinophils/100 WBC Auto (Bld)Ordered By: Clinton Marr on 06-03-2025 Eosinophils/100 WBC (Bld)2.7 %0.9-7.0[facility] Erythrocyte distribution width Auto (RBC) [Ratio]Ordered By: Clinton Marr on 64-46-3732Cazsjqhwned distribution width (RBC) [Ratio]14.0 %11.0-15.0Lutheran HospitalGlomerular filtration rate (GFR) estimation in non- AmericanOrdered By: Clinton Marr on 79-87-3299LCB/1.73 sq M.predicted among non-blacks MDRD (S/P/Bld) [Vol rate/Area]mL/min/{1.73_m2}>=60 mL/min/1.73m 2FUniversity Hospitals TriPoint Medical CenterHematocrit Auto (Bld) [Volume fraction]Ordered By: Clinton Marr on 15-02-2223Lgffyawhhf (Bld) [Volume fraction]40.9 %Low 42.0-54.0Lutheran HospitalHemoglobin [Mass/volume] in Blood Ordered By: Clinton Marr on 80-26-2454Svfbmrlnde (Bld) [Mass/Vol]13.8 g/dLLow 14.0-18.0[facility] HospitalLaboratory - Chemistry and Chemistry - challengeOrdered By: Clinton Marr on 44-05-6453Wslemsw [Mass/Vol]9.2 mg/dL 8.5-10.1FUniversity Hospitals TriPoint Medical CenterChloride [Moles/Vol]105 mmol/L98-107 [facility] HospitalCO2 [Moles/Vol]26.9 mmol/L21.0-32.0[facility] HospitalCreatinine [Mass/Vol]0.83 mg/dL0.70-1.30Lutheran HospitalGFR/1.73 sq M.predicted MDRD (S/P/Bld) [Vol rate/Area] mL/min/{1.73_m2}>=60 mL/min/1.73m [address] [place], [place] [address]Glucose [Mass/Vol]85 mg/pE37-326XhsdkqbokLutheran HospitalPotassium [Moles/Vol] 3.6 mmol/L3.5-5.1FFisher-Titus Medical Centerodium [Moles/Vol]138 mmol/L 136-145L[facility]an HospitalUrea nitrogen [Mass/Vol]24.0 mg/dLHigh 7.0-18.0L[facility]an HospitalUrea nitrogen/Creatinine [Mass ratio] 28.9 mg/mgLutheran HospitalLaboratory - Hematology and Cell countsOrdered By: Clinton Marr on 13-77-3927Vqnrhwsz granulocytes/100 WBC (Bld) 0.2 %0.0-0.5FUniversity Hospitals TriPoint Medical CenterLeukocytes [#/volume] corrected for nucleated erythrocytes in Blood by Automated counOrdered By: Clinton Marr on 97-87-8731HEU corrected for nucl RBC Auto (Bld) [#/Vol]10.8 10 3/uL4.0-11.0 Luther[facility] HospitalLymphocytes Auto (Bld) [#/Vol]Ordered By: Clinton Marr on 37-73-3619Jkepipupznt (Bld) [#/Vol]1.4 10 3/uL1.2-3.8Lutheran HospitalLymphocytes/100 WBC Auto (Bld)Ordered By: Clinton Marr on 49-31-2643Ccgdugnvbes/100 WBC (Bld)13.1 %Low20.5-60.0Grant HospitalH Auto (RBC) [Entitic mass]Ordered By: Clinton Marr on 75-67-9406GOA (RBC) [Entitic mass]29.6 pg25.9-34.0[facility]an HospitalMCHC Auto (RBC) [Mass/Vol]Ordered By: Clinton Marr on 34-74-2571RWSA (RBC) [Mass/Vol]33.7 g/dL29.9-35.2FUniversity Hospitals TriPoint Medical CenterMCV Auto (RBC) [Entitic vol]Ordered By: Clinton Marr on 21-82-0774TEN (RBC) [Entitic vol]87.6 fL80.0-94.0[facility]an HospitalMonocytes Auto (Bld) [#/Vol]Ordered By: Clinton Marr on 41-23-4057Wusvbuted (Bld) [#/Vol]0.8 10 3/uL 0.3-0.8Lutheran HospitalMonocytes/100 WBC Auto (Bld)Ordered By: Clinton Marr on 20-37-7865Ewanxxmap/100 WBC (Bld)7.8 %1.7-12.0[facility]an HospitalNeutrophils Auto (Bld) [#/Vol]Ordered By: Clinton Marr on 79-17-5728Mvarndjqrgo (Bld) [#/Vol]8.1 10 3/uLHigh1.4-6.5FUniversity Hospitals TriPoint Medical CenterNeutrophils/100 WBC Auto (Bld)Ordered By: Clinton Marr on 72-38-1525Vwicqazmptn/100 WBC (Bld)75.4 %High43.0-75.0Lutheran HospitalNo Panel InformationOrdered By: Clinton Marr on 91-68-7111Eziyrlpt I High Sensitivity8.0 pg/mL4.0-76.1FUniversity Hospitals TriPoint Medical CenterComment on above:CUT-OFF POINTS HAVE BEEN ESTABLISHED BASED ON THE FOURTHUNIVERSAL DEFINITION OF MYOCARDIAL INFARCTION. THE UPPERREFERENCE LIMIT (URL) OF TROPONIN, DEFINED THE 99THPERCENTILE OF cTnI DISTRIBUTION IN A REFERENCE POPULATION,HAS BEEN CONFIRMED THE DECISION THRESHOLD FOR MIDIAGNOSIS.99TH PERCENTILE = 76.2 PG/MLNOTE: HIGH-SENSITIVITY TROPONIN ASSAY IS NOT INTENDED TO BEUSED IN ISOLATION BUT SHOULD BE INTERPRETED IN CONJUNCTIONWITH OTHER DIAGNOSTIC AND CLINICAL INFORMATION.Eosinophils # (Auto)0.3 10 3/uL0.0-0.7 Lutheran HospitalImmature Granulocyte # (Auto)0.02 10 3/uL 0.00-0.03Lutheran HospitalPlatelet mean volume Auto (Bld) [Entitic vol]Ordered By: Clinton Marr on 03-98-4130Vdbknfzi mean volume (Bld) [Entitic vol]10.0 fL9.5-13.5FUniversity Hospitals TriPoint Medical CenterPlatelets Auto (Bld) [#/Vol]Ordered By: Clinton Marr on 90-68-7974Emztrjwwj (Bld) [#/Vol]285 10 3/fI552-639WtcgfobopLutheran HospitalRBC Auto (Bld) [#/Vol]Ordered By: Clinton Marr on 54-97-9976OEN (Bld) [#/Vol]4.67 10 6/uLLow4.70-6.10[facility] Vincent Medical Centererum or plasma anion gap determinationOrdered By: Clinton Marr on 84-73-5791Hdxfz gap [Moles/Vol]9.7 mmol/LFUniversity Hospitals TriPoint Medical CenterAmbulatory Visit Summaryon 69-29-4928Lgdanprnci Visit Summary Ambulatory Visit Summary MARTI MORGAN :1955 Visit Date:05/13/2025 Ambulatory Visit Instructions Your Diagnosis Status post repair of hydrocele BPH with urinary obstruction Anticoagulated Your Care Team Attending Physician - Drew PÉREZ MD Primary Care Physician - SOPHIE DELAROSA [...] Appointments Friday 10:30 AM EST With: Drew PÉREZ MD Where: [facility] [address] [address]- Friday2025 8:30 AM EST With: Drew PÉREZ MD Where: [facility] [address] [place] [address]- You Need to Schedule the Following Appointments Follow Up with Drew PÉREZ MD, URL When: Comments: 6 mos Where: [address] [place] [address] Medications What How Much When Why Instructions [...] topical 1% gel) Contact prescribing physician if questionsor concerns Unchanged meloxicam (meloxicam 15 mg Tab) [...] these instructions at home: Medicines ??? Take izxv-uwo-wogzgsc and prescription medicines only as told by your health care provider. ??? Ask your health care provider if the medicine prescribed to you: ? Requires you to avoid driving or using machinery. ? Can cause constipation. You may need to take these actions to prevent or treat constipation: ? Drink enough fluid to keep your urine pale yellow. ? Take gvho-uxb-jxmldhw or prescription medicines. ? Eat foods that are high in fiber, such as beans, whole grains, and fresh fruits and vegetables. ? Limit foods that are high in fat and processed sugars, such as fried or sweet foods. Bathing ??? Do not take baths, swim, or use a hot tub until your health care provider approves. A (more contentnot included)...[facility] Urology Office/Clinic Noteon 93-38-2547Koczlft Office/Clinic NoteUrology Office/Clinic Note Chief Complaint pt here for [...] been taking dutasteride and wants to know ifhe should be taking both pt denies pain/burning denies visible blood denies flank pain pt complains of frequency History of Present Illness Tests reviewed: reviewed UA, op note, path report I have reviewed the previous health record information and history for this patient from Dr. Pérez. I have reviewed and verified the staff [...] but has not been taking Flomax 0.4 mgbid. Has noticed a difference in sxs wo Flomax. Advised pt to restart this. May need to consider a TURP in the future as pt is already on max meds. -Cont Dutasteride wo changes -Restart Flomax bid 3. 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 [1] Follow-up With When Contact Information [employer], [employer], URL [address] [place] [address] [place] [address] Additional Instructions: 6 mos Patient Education Hydrocelectomy, Adult, Care After I, Sherry Fitzpatrick, personally scribed for Dr. Pérez on 05/13/2025 09:35:50. . Documentation recorded by the scribeSherry, accurately reflects the services(s) I performed and decisions made by me. Authenticated by Dr. Pérez on 05/13/2025 09:39:53. Problem List/Past Medical History [...] Recorded influenza virus vaccine (more content not included)...[facility] CenterComment on above:Result Comment: Electronically Signed By: Drew PÉREZ MD.br\Date and Time Signed: 05/13/25 09:40 EDT\.br\Electronically Co- Signed By: Sherry Fitzpatrick.br\Date and Time Co-Signed: 05/13/25 09:36 EDTLon 04-14-2025L Specimen: [id number] Received: 04/14/25 Status: EVELINE Webbjannie Num: [id number] Spec Type: Surgical Subm Dr: Drew Pérez MD Tissues: A Hydrocele Sac (LEFT HYDROCELE SAC) Procedures: ROSIE Gross/Micro L2 Age/ Patient Sex Location Account Attending Physician Marti Morgan/M LABELL [id number] Drew Pérez MD SPEC NUM: [id number] RECD: 04/14/25 STATUS: EVELINE WEBBJannie NUM: [id number] ARIELA: 04/14/[address]: Drew Pérez MD ENTERED: 04/14/[address]: Odette Case SPEC TYPE: Surgical DEPT: [facility] ENTERED BY: [id number] RECV BY: [id number] ORDERED: ROSIE Gross/Micro L2 ORDERED: HE, Gross/Micro L2 Pathological [...] to pink, glistening, and uniform cut surfaces. Trial Paralegal sections are submitted in a single cassette. (1, , [id number] A) Microscopic Description Microscopic examination is performed. CPT Codes 64982 Specimen: [id number] Received: 04/14/25 Status: EVELINE Fuller Num: [id number] Spec Type: Surgical Subm Dr: Drew Pérez MD Tissues: A Hydrocele Sac (LEFT HYDROCELE SAC) Procedures: Anneliese VELEZ/[place] L2 Patient: EddieMarti buck [id number] (Continued) Signed (signature on file) Luis M Ruth MD 04/18/25 1354Normal [facility] Physician BdrtiPxL6j (Bld) [Mass fraction]on 04-12-2025 Interpretation and review of laboratory resultsAbnormalMissouri Rehabilitation Center HealthcareLaboratory - Hematology and Cell countson 85-72-1506TrV4l (Bld) [Mass fraction]6.3 %[facility] HealthcareProvider Letteron 72-09-0609Njkbcyfx LetterProvider Letter April 11, 2025 MARTI MORGAN [address] [place] [address] : 1955 To Whom It May Concern, Please excuse above patient from work. Date of Illness: From: 04/14/25 To: 04/24/25 May Return to Work On: 04/25/25 Restrictions: Patient may return to work 04/25/25 with no heavy lifting over 20 pounds x 3 weeks until 05/16/25 Comments: Patient is having a surgical procedure on 04/14/25 Sincerely, Drew Pérez M.D., F.A.C.S. [facility] [address], [place] [address] , option #3NormalFisher Mt. Washington Pediatric HospitalDocumentationon [id number] Marti Morgan 1955 [facility] Department [place] 03/29/2025 94515-RYQMUSMISAEL MONTIEL [facility] CARD UT HeartVAS Family History Problem Relation Age of Onset Heart attack Father Coronary artery disease Father Other Father Coronary artery disease Maternal Grandfather Other Maternal Grandfather Family Status - Relation Status Age at Father Maternal GrandfatherNWadsworth-Rittman HospitalOrders Onlyon [id number] [id number] Marti Morgan 1955 M Date Provider Department Center 03/28/2025 [id number], HISTORICAL [facility] Family History Problem Relation Age of Onset Heart attack Father Coronary artery disease Father Other Father Coronary artery disease Maternal Grandfather Other Maternal Grandfather Family Status - Relation Status Age at Father Maternal GrandfatherNWadsworth-Rittman HospitalCA ECHO DOPPLER COMPLETEon [id number] [id number] Cardiology Report Signed Patient: MARTI MORGAN MR#: [id number] : 1955 Acct:[id number] Age/Sex: 69 / M ADM Date: 03/24/25 Loc: CARD Attending Dr: Misael Reyes M.D. Ordering Physician: Misael Reyes M.D. Date of Service: 03/24/25 Procedure(s): CA echo doppler complete Accession Number(s): [id number] cc: Sophie Delarosa JAVASCRIPT WEB DEVELOPER; Misael Reyes M.D. Patient Name: MARTI MORGAN MR#: [id number] : 1955 Exam Date: 03/24/2025 Ordering Doctor: [...] Misael Reyes MD on (more content not included)...[facility] Radiology, Radiologist, MD - 03/26/2025 [place] [address] Cardiology Report Signed Patient: MARTI MORGAN MR#: [id number] : 1955 Acct:[id number] Age/Sex: 69 / M ADM Date: 03/24/25 Loc: CARD Attending Dr: Misael Reyes M.D. Ordering Physician: Misael Reyes M.D. Date of Service: 03/24/25 Procedure(s): CA echo doppler complete Accession Number(s): [id number] cc: Sophie Delarosa NP; Misael Reyes M.D. Patient Name: MARTI MORGAN MR#: [id number] : 1955 Exam Date: 03/24/2025 Ordering Doctor: [...] M.D. Signed By: 03/26/251815 DD/ 14 TD/TT: Christian Education Director: [facility] HealthcareRadiology Study observation (narrative)The Rehabilitation InstituteCA ECHO DOPPLER COMPLETEOrdered By: Radiologist Radiology on 51-48-3685B[facility] Work Phone: Office Visiton [id number]-up [id number] Marti Morgan 1955 M Date Provider Department Center 03/18/2025 [id number] REYES [facility] Family History Problem Relation Age of Onset Heart attack Father Coronary artery disease Father Other Father Coronary artery disease Maternal Grandfather Other Maternal Grandfather Family Status - Relation Status Age at Father Maternal Grandfather Level of Service:28845 SD OFFICE/OUTPATIENT ESTABLISHED MOD MDM 30 MIN Reason for Visit and Comments: Abnormal ECG [293] - Performed a few days ago, with labs Pre-op Exam [594759] - Had stress test and echo at [facility] back in 2021 s/p Covid-19 infection. Patient denies chest pain, SOB, and palpitations. He will be scheduled for hydrocele procedure with Dr. Pérez. Hypertension [186285] Hyperlipidemia [182] Transient Ischemic Attack [360645] - Hx of TIA, formerly on Plavix.Normal [facility] HospitalOrders Onlyon 63-48-8711Tygqah [id number] Marti Morgan 1955 M Date Provider Department Center 03/18/2025 [id number], HISTORICAL [facility] Family History Problem Relation Age of Onset Heart attack Father Coronary artery disease Father Other Father Coronary artery disease Maternal Grandfather Other Maternal Grandfather Family Status - Relation Status Age at Father Maternal GrandfatherNWadsworth-Rittman HospitalALL BASIC METABOLIC PANELon 15-53-4891Nlwzj gap [Moles/Vol]11.7 mmol/LNOMS HealthcareCalcium [Mass/Vol]9.1 mg/dL8.5 - 10.1 mg/dLNOMS HealthcareChloride [Moles/Vol]106 mmol/L 98 - 107 mmol/LNOMS HealthcareCO2 [Moles/Vol]30.7 mmol/L21.0 - 32.0 mmol/LNOMS HealthcareCreatinine [Mass/Vol]0.69 mg/dLLow0.70 - 1.30 mg/dLNOPR Healthcare GFR/1.73 sq M.predicted CKD-EPI (S/P/Bld) [Vol rate/Area]>60>=60 mL/min/1.73m 2 NOMS HealthcareGlucose [Mass/Vol]127 mg/iPJovu95 - 106 mg/dLNOPR Healthcare Interpretation and review of laboratory resultsAbnormalNOMS HealthcarePotassium [Moles/Vol]4.4 mmol/L3.5 - 5.1 mmol/LNOMS HealthcareSodium [Moles/Vol]144 mmol/L 136 - 145 mmol/LNOMS HealthcareTBH EGFR-NON AF SLOVENIAN>60>=60 mL/min/1.73m 2 NOMS HealthcareUrea nitrogen [Mass/Vol]18 mg/dL7.0 - 18.0 mg/dLNOPR Healthcare Urea nitrogen/Creatinine [Mass ratio]26.1 mg/mgNOPR HealthcareCLINISYNCNOMS HealthcareECG 12-LEADon 27-87-1509[address] [address] Electrocardiograph Report Signed Patient: MARTI MORGAN MR#: [id number] : 1955 Acct:[id number] Age/Sex: 69 / M ADM Date: 03/14/25 Loc: [facility] Attending Dr: Drew Pérez M.D. Ordering Physician: Drew Pérez M.D. of Service: 03/14/25 Procedure(s): ECG 12 lead Accession Number(s): [id number] cc: [facility] Test Date: 2025-03-14 Pat Name: MARTI MORGAN Department: Room: - Gender: Male Hand Packager: : 1955 Requested By: DREW PÉREZ Order Number: [id number] Reading MD: MARTI MIKE M.D. Measurements Intervals [place] Rate: 76 P: 153 SD: 195 QRS: -21 QRSD: 115 T: 150 [...] MARTI MIKE Signed By: 03/14/252030 DD/ TD/TT: Christian Education Director:TBHRadiology, Radiologist, - 03/14/2025 [place] [address] Electrocardiograph Report Signed Patient: MARTI MORGAN MR#: [id number] : 1955 Acct:[id number] Age/Sex: 69 / M ADM Date: 03/14/25 Loc: PST Attending Dr: Drew Pérez M.D. Ordering Physician: Drew Pérez M.D. Date of Service: 03/14/25 Procedure(s): ECG 12 lead Accession Number(s): [id number] cc: [facility] Test Date: 2025-03-14 Pat Name: MARTI MORGAN Department: Room: - Gender: Male Hand Packager: : 1955 Requested By: DREW PÉREZ Order Number: [id number] Reading MD: MARTI MIKE M.D. Measurements Intervals [place] Rate: 76 P: 153 SD: 195 QRS: -21 QRSD: 115 T: 150 [...] MIKE Signed By: 03/14/252030 DD/ 8 TD/TT: Christian Education Director: EMELINA HealthcareRadiology Study observation (narrative)[facility] HealthcareECG 12-LEAD Ordered By: Radiologist Radiology on 34-82-9057ZBEK Healthcare Work Phone: ambulatory Visit Summaryon 96-62-9794Ziuirzfomb Visit SummaryAmbulatory Visit Summary EDDIEMARTI Saúl :1955 Visit Date:03/07/2025 [...] Appointments Friday 10:30 AM EST With: Drew PÉREZ MD Where: [facility] [address] [facility] [place] [address]- You Need to Schedule the Following Appointments Follow Up with Drew PÉREZ MD, URL When: Comments: westley Hays hydrocelectomy Where: [facility] [address], [facility] [place] [phone] Medications What How Much When Why Instructions [...] topical 1% gel) Contact prescribing physician if questionsor concerns Unchanged meloxicam (meloxicam 15 mg Tab) [...] these instructions at home: Medicines ??? Take ysuv-ure-eyrxohh and prescription medicines only as told by your health care provider. ??? Ask your health care provider if the medicine prescribed to you: ? Requires you to avoid driving or using machinery. ? Can cause constipation. You may need to take these actions to prevent or treat constipation: ? Drink enough fluid to keep your urine pale yellow. ? Take vrlm-tms-ogpflly or prescription medicines. ? Eat foods that are high in fiber, such as beans, whole grains, and fresh fruits and vegetables. ? Limit foods that are high in fat and processed sugars, such as fried or sweet foods. Bathing ??? Do not take baths, swim, or use a hot tub until your health care provider approves. Ask your healthcare provider if you may take showers. You may only be allowed to take sponge baths. ??? If you were told to wear an athletic support strap (scrotal support), keep it dry. Take it off whenyou shower or bathe. Incis (more content not included)...[facility] Medical CenterAmbulatory Visit SummaryAmbulatory Visit Summary EDDIEMARTI :1955 Visit Date:03/07/2025 Ambulatory Visit Instructions Your [...] Appointments Friday 10:30 AM EST With: Drew PÉREZ MD Where: [facility] [address] [facility] [place] [address]- You Need to Schedule the Following Appointments Follow Up with Drew PÉREZ MD, URL When: Comments: westley L hydrocelectomy Where: [facility] [address], [place] [phone] Medications What How Much When Why Instructions [...] topical 1% gel) Contact prescribing physician if questionsor concerns Unchanged meloxicam (meloxicam 15 mg Tab) [...] these instructions at home: Medicines ??? Take jnog-rqv-xgnmjke and prescription medicines only as told by your health care provider. ??? Ask your health care provider if the medicine prescribed to you: ? Requires you to avoid driving or using machinery. ? Can cause constipation. You may need to take these actions to prevent or treat constipation: ? Drink enough fluid to keep your urine pale yellow. ? Take hkis-odg-xnfhhkn or prescription medicines. ? Eat foods that are high in fiber, such as beans, whole grains, and fresh fruits and vegetables. ? Limit foods that are high in fat and processed sugars, such as fried or sweet foods. Bathing ??? Do not take baths, swim, or use a hot tub until your health care provider approves. Ask your healthcare provider if you may take showers. You may only be allowed to take sponge baths. ??? If you were told to wear an athletic support strap (scrotal support), keep it dry. Take it off whenyou shower or bathe. Incis (more content not included)...[facility] Medical CenterProvider Letteron [phone] LetterProvider Letter March 07, [address] [id number] : 1955 To Whom It May Concern, Please excuse above patient from work. Date of Illness: From: 03/17/25 To: 03/24/2025 May Return to Work On:03/25/25 Restrictions: No work 03/17/25- 03/24/25 Comments: Patient is having surgery on 03/17/25. No work 03/17/25- 03/24/25. He may return to work 03/25/25 with no heavy lifting over 10 lbs x 1 week. Sincerely, [facility]Sum[facility] HealthUrology Office/Clinic Noteon 49-46-4692Uvprcfy Office/Clinic NoteUrology Office/Clinic Note Chief Complaint pt here to [...] and history for this patient from Dr. Pérez. I have reviewed and verified the staff [...] additional procedures, among others. Full informed consent hasbeen obtained. Will order General anesthesia. 2. BPH with urinary obstruction (N40.1: Benign prostatic hyperplasia with lower urinary tract symptoms) PSA 06/21/19 - 0.90 08/21/20 - 0.89 06/25/22 - 0.79 12/18/24 - 1.01 S/p Cysto 01/25/25 - Short, bilobar obstruction. UA neg. IPSS 20 (12). Taking Dutasteride 0.5 mg qd and Flomax 0.4 mg bid. Cont wo changes. 3. Anticoagulated (Z79.01: MCFP (current) use of anticoagulants) Plavix. Follow-up With When Contact Information BETO WEAVER, Drew Painting, URL [facility] [address], [place] [phone] Additional Instructions: sched L hydrocelectomy Patient Education Hydrocelectomy, Adult, Care After Hydrocelectomy, Adult I, Sherry Fitzpatrick, personally scribed for Dr. Pérez on 03/07/2025 15:22:21. . Documentation recorded by the scribeSherry, accurately reflects the services(s) I performed and decisions made by me. Authenticated by Dr. Pérez on 03/07/2025 15:24:10. Problem List/Past Medical History [...] inactivated 06/22/2023 Recorded SARS-CoV-2 (more content not included)...[facility] Comment on above:Result Comment: Electronically Signed By: Drew PÉREZ MD\.br\Date and Time Signed: 03/07/25 15:24 EDT\.br\Electronically Co-Signed By: Sherry Fitzpatrick\.br\Date and Time Co-Signed: 03/07/25 15:22 EDTUS Scrotum and testicleon 92-99-5028Fpw[address] [address] Ultrasound Report Signed Patient: MARTI MORGAN MR#: [id number] : 1955 Acct:[id number] Age/Sex: 69 / M ADM Date: 02/09/25 Loc: US Attending Dr: Drew Pérez M.D. Ordering Physician: Drew Pérez M.D. Date of Service: 02/09/25 Procedure(s): US scrotum Accession Number(s): [id number] cc: Sophie Delarosa NP; Drew Péerz M.D. [address] [address] Patient Name: MARTI MORGAN MRN: [id number] date: 1955 Sex: M Assigned Patient Location: US Current Patient Location: US Accession/Order Number: [id number] Exam Date: 02/09/2025 18:40 Report Date: 02/09/2025 18:42 At the request of: DREW PÉREZ MD Procedure: US scrotum Scrotal ultrasound [...] Rudolph M.D. 02/09/2025 6:42 PM Dictation Location: [place] [address] Electronically authenticated by: [id number] Y Date: 02/09/2025 18:42 Dictated By: Clinton Rudolph D.O. Signed By: 02/10/25 0950 DD/ 184 TD/TT: Christian Education Director:CHERYLEHRadiologray, Radiologist, - 02/10/2025 [place] [address] Ultrasound Report Signed Patient: MARTI MORGAN MR#: [id number] : 1955 Acct:[id number] Age/Sex: 69 / M ADM Date: 02/09/25 Loc: US Attending Dr: Drew Pérez M.D. Ordering Physician: Drew Pérez M.D. Date of Service: 02/09/25 Procedure(s): US scrotum Accession Number(s): [id number] cc: Sophie Delarosa NP; Drew Pérez M.D. The [address] [address] Patient Name: MARTI MORGAN MRN: [facility]:[id number] date: 1955 Sex: M Assigned Patient Location: US Current Patient Location: US Accession/Order Number: [id number] Exam Date: 02/09/2025 18:40 Report Date: 02/09/2025 18:42 At the request of: DREW PÉREZ MD Procedure: US scrotum Scrotal ultrasound [...] Rudolph M.D. 02/09/2025 6:42 PM Dictation Location: [place] [address] Electronically authenticated by: [id number] Y Date: 02/09/2025 18:42 Dictated By: Clinton Rudolph D.O. Signed By: 02/10/25 0950 DD/ 41 TD/TT: Christian Education Director: EMELINA PowellUS Scrotum and testicleOrdered By: Radiologist Radiology on 52-18-5462EDOJ [facility] Work Phone: US Scrotum and testicleon 71-03-5608Bhzcczckr Study observation (narrative)EMELINA HealthcareAmbulatory Visit Summaryon 01-25-2025 Ambulatory Visit SummaryAmbulatory Visit Summary MARTI MORGAN :1955 Visit Date:01/25/2025 [...] Appointments Friday 10:30 AM EST With: Drew PÉREZ MD Where: [facility] [address] [place] [address]- You Need to Schedule the Following Appointments Follow Up with Drew PÉREZ MD, URL When: Where: [facility] [address], [place] [address]- Medications What How Much When Why Instructions [...] topical 1% gel) Contact prescribing physician if questionsor concerns Unchanged meloxicam (meloxicam 15 mg Tab) [...] gland that is caused by the normal agingprocess. The prostate may get bigger as a man gets older. The condition is not caused by cancer. The prostate is a walnut-sized gland that is involved in the production of semen. It is located in front of the rectum and below the bladder. The bladder stores urine. The urethra carries stored urine ou t of the body. An enlarged prostate can press on the urethra. This can make it harder to pass urine. The buildup of urine in the bladder can cause infection. Back pressure and infection may progress to bladder damage and kidney (renal) failure. What are the causes? This condition is part of the normal aging process. However, not all men develop problems from thiscondition. If the prostate enlarges away from the urethra, urine flow will not be blocked. If it enlarges toward the urethra and compresses it, there will be problems passing urine. What increases the risk? This condition is more likely to develop in men older t (more content not included)...[facility] Medical CenterUrology Office/Clinic Noteon 35-40-8108Wtcjsxy Office/Clinic NoteUrology Office/Clinic Note Chief Complaint cysto HPI Staff Cysto. Abx taken History of Present Illness Tests reviewed: I have reviewed the previous health record information and history for this patient from Dr. Pérez. I have reviewed and verified the staff [...] or torsion. -Cont monitoring 4. Anticoagulated (Z79.01: MCFP (current) use of anticoagulants) Plavix. Follow-up With When Contact Information BETO WEAVER, Drew [employer], URL [facility] [address], [place] [address]- Additional Instructions: 5 mos Patient Education Benign Prostatic Hyperplasia I, Dunia Santiago, personally scribed for Dr. Pérez on 01/25/2025 15:35:33. . Documentation recorded by the scribe, Dunia Santiago, accurately reflects the services(s) I performed and decisions made by me. Authenticated by Dr. Pérez on 01/25/2025 15:37:44. Problem List/Past Medical History [...] Recorded SARS-CoV-2 (COVID-19) mRNAMUL.ORD! (more content not included)...[facility] Medical CenterComment on above:Result Comment: Electronically Signed By: Drew PÉREZ MD\.br\Date and Time Signed: 01/25/25 15:37 EDT\.br\Electronically Co-Signed By: Dunia Santiago\.br\Date and Time Co- Signed: 01/25/25 15:35 EDTAmbulatory Visit Summaryon 71-47-4557Ujvhnaflpz Visit SummaryAmbulatory Visit Summary MARTI MORGAN :1955 Visit Date:01/03/2025 Ambulatory Visit Instructions Your Diagnosis BPH with urinary obstruction Feeling of incomplete bladder emptying Hydrocele Anticoagulated Your Care Team Attending Physician - Drew PÉREZ MD Primary Care Physician - BREANNA WEAVER, [...] Where: [facility] [address] [place] [phone] Medications What How Much When Why Instructions New ciprofloxacin (Cipro 500 mg Tab) 1 Tablets By Mouth Every day take one tab day before procedureand one tab after procedure Pickup at [facility] New dutasteride (dutasteride 0.5 mg Cap) 1 Capsules By Mouth Every day BPH with urinary obstructionRefills: 3 Pickup at [facility] Unchanged tamsulosin (tamsulosin 0.4 [...] topical 1% gel) Contact prescribing physician if questionsor concerns Unchanged meloxicam (meloxicam 15 mg Tab) [...] physician if questions or concerns Pharmacy Information [facility]: [address] [place], [place] [phone] Allergies No Known Medication Allergies Problems Ongoing [...] including vitamins, herbs, eye drops, creams, and sucq-gkx-fxnoeez medicines. ??? Any problems you or family members have had with anesthetic medicines. ??? Any blood disorders you have. ??? (more content not included)...NormalKettering Health DaytonALL CBC WITH AUTO DIFFon 18-59-6061VUUEKIHHZ ABSOLUTE AUTO0.1NOMS [facility] HospitalBasophils/100 WBC (Bld)0.8 %0.2 - 2.0 %NOMSt. Louis Va Medical CenterEosinophils/100 WBC (Bld)4.4 %0.9 - 7.0 % NOMSt. Louis Va Medical CenterErythrocyte distribution width (RBC) [Ratio]13.6 %11.0 - 15.0 % NOMSt. Louis Va Medical CenterHematocrit (Bld) [Volume fraction]41.9 %Low42.0 - 54.0 %The Rehabilitation InstituteHemoglobin (Bld) [Mass/Vol]14 g/dL14.0 - 18.0 g/dLNOSoutheast Missouri Hospital IMMATURE GRANULOCYTES ABS AUTO0.02NOSoutheast Missouri HospitalImmature granulocytes/100 WBC (Bld)0.2 %0.0 - 0.5 %NOMSt. Louis Va Medical CenterInterpretation and review of laboratory resultsAbnormalNOSoutheast Missouri HospitalLYMPHOCYTES ABSOLUTE AUTO1.2NOMS [facility] Lymphocytes/100 WBC (Bld)14.4 %Low20.5 - 60.0 %[facility]eman Heart InstituteH (RBC) [Entitic mass]29.4 pg25.9 - 34.0 pgNOScotland County Memorial HospitalHC (RBC) [Mass/Vol]33.4 g/dL29.9 - 35.2 g/dLFreeman Heart InstituteV (RBC) [Entitic vol]87.8 fL80.0 - 94.0 fLNOMS HealthcareMONOCYTES ABSOLUTE AUTO0.6NOMS HealthcareMonocytes/100 WBC (Bld)7.2 % 1.7 - 12.0 %NOMS HealthcareNEUTROPHILS ABSOLUTE AUTO6.1N[facility]S [facility] Neutrophils/100 WBC (Bld)73 %43.0 - 75.0 %NOMS HealthcarePlatelet mean volume (Bld) [Entitic vol]9.4 fLLow9.5 - 13.5 fLNOMS HealthcareTBH EO #0.4NOMS HealthcareTBH [id number] HealthcareTBH RBC4.77NOMS HealthcareTBH WBC8.4NOMS HealthcareCLINISYNCNOMS HealthcareUS Scrotum and testicleon 67-41-9202AqjSpring, [place] [address] Ultrasound Report Signed Patient: MARTI MORGAN MR#: [id number] : 1955 Acct:[id number] Age/Sex: 69 / M ADM Date: 12/14/24 Loc: US Attending Dr: Sophie Delarosa NP Ordering Physician: Sophie Delarosa NP Date of Service: 12/14/24 Procedure(s): US scrotum Accession Number(s): [id number] cc: Sophie Delarosa NP [place] [address] Patient Name: MARTI MORGAN MRN: [id number] date: 1955 Sex: M Assigned Patient Location: US Current Patient Location: US Accession/Order Number: [id number] Exam Date: 12/14/2024 20:49 Report Date: 12/14/2024 [...] Rosemary Em M.D.12/14/2024 8:59 PM Dictation Location: [place] [address] Electronically authenticated by: [id number] Date: 12/14/2024 20:59 Dictated By: Rosemary Em M.D. Signed By: 12/14/242101 DD/ 58 TD/TT: Christian Education Director:TBHRadiology, Radiologist, - 12/14/2024 [place] [address] Ultrasound Report Signed Patient: MARTI MORGAN MR#: [id number] : 1955 Acct:[id number] Age/Sex: 69 / M ADM Date: 12/14/24 Loc: US Attending Dr: Sophie Delarosa NP Ordering Physician: Sophie Delarosa NP Date of Service: 12/14/24 Procedure(s): US scrotum Accession Number(s): [id number] cc: Sophie Delaorsa NP [address] [address] Patient Name: MARTI MORGAN MRN: [id number] date: 1955 Sex: M Assigned Patient Location: US Current Patient Location: US Accession/Order Number: [id number] Exam Date: 12/14/2024 20:49 Report Date: 12/14/2024 [...] Rosemary Em M.D.12/14/2024 8:59 PM Dictation Location: [place] [address] Electronically authenticated by: [id number] Y Date: 12/14/2024 20:59 Dictated By: Rosemary Em M.D. Signed By: 12/14/242101 DD/ 58 TD/TT: Christian Education Director: [facility] Rehabilitation InstituteRadiology Study observation (narrative)The Rehabilitation InstituteUS Scrotum and testicleOrdered By: Radiologist Radiology on 51-49-5825VBGDThe Rehabilitation Institute Work Phone: No Panel Informationon 89-12-9462HprjkBarbara Messer NP 06/23/2024 8:12 AM L Inj/Asp: L knee on 06/23/2024 8:06 AM Indications: pain Details: 20 G needle, anterolateral approach Medications: 40 mg methylPREDNISolone acetate 40 MG/ML UTILIZING ASEPTIC TECHNIQUE PT GIVEN INJECTION IN LEFT KNEE, NEUROVASC INTACT S/P INJ, TOLERATED WELL Procedure, treatment alternatives, risks and benefits explained, specific risks discussed. Consent was given by the patient. [facility] HealthCBC AUTO DIFFon 56-80-1163GWBS #0.1 103/ulNormal 0.0-0.1[facility] Mentor HospitalComment on above:Performed By: #### CBC #### [facility] [address] [place] [address] [address] Renee PradoBasophils/100 WBC (Bld)0.8 %Normal0.2-2.0[facility] Comment on above:Performed By: #### CBC #### [facility] [address] [place] [address] [address] Renee Stinson #0.3 103/ulNormal0.0-0.7The [facility]cy HospitalComment on above: Performed By: #### CBC #### [facility] [address] [place] [address] Dr. Renee Hayesosinophils/100 WBC (Bld)3.3 %Normal0.9-7.0[facility] Comment on above:Performed By: #### CBC #### [facility] [address] [place] [address] Dr. Renee Hayesrythrocyte distribution width (RBC) [Ratio]13.9 %Azsbkd31.0-15.0 [facility] Ment[facility] HospitalComment on above:Performed By: #### CBC #### [facility] [address] [place] [address] Dr. Renee PradoHematocrit (Bld) [Volume fraction]41.9 %Critically low42.0-54.0 [facility] Ment[facility] HospitalComment on above:Performed By: #### CBC #### [facility] [address] [place] [address] Dr. Renee PradoHemoglobin (Bld) [Mass/Vol]13.8 g/dLCritically low14.0-18.0The [facility] HospitalComment on above:Performed By: #### CBC #### [facility] [address] [place] [address] Dr. Renee Piper #0.02 10e3/ulNormal0.00-0.03The Mercy HospitalComment on above:Performed By: #### CBC #### [facility] [address] [place] [address] Dr. Renee Piper %0.2 %Normal0.0-0.5The Mercy HospitalComment on above: Performed By: #### CBC #### [facility] [address] [place] [address] [address] Renee Live #1.8 103/ulNormal1.2-3.8The [facility]. Francis Hospitalment on above:Performed By: #### CBC #### [facility] [address] [place] [address] Dr. Renee Rebolledohocytes/100 WBC (Bld)19.9 %Critically low20.5-60.0The [facility]cy HospitalComment on above:Performed By: #### CBC #### [facility] [address] [place] [address] Dr. Renee Montanez DIFF REQNONormalThe Mercy HospitalComment on above: Performed By: #### CBC #### [facility] [address] [place] [address] Dr. Renee Bryan (RBC) [Entitic mass]28.9 dcJfbhsj05.9-34.0The Mercy HospitalComment on above:Performed By: #### CBC #### [facility] [address] [place] [address] Dr. Renee Palumbo (RBC) [Mass/Vol]32.9 g/lJTrkwpj15.9-35.2[facility] on above:Performed By: #### CBC #### [facility] [address] [place] [address] Dr. Renee Palumbo (RBC) [Entitic vol]87.7 iYNqycim50.0-94.0The [facility] HospitalComment on above:Performed By: #### CBC #### [facility] [address] [place] [address] Dr. Renee Patricio #0.6 103/ulNormal0.3-0.8[facility] on above:Performed By: #### CBC #### [facility] [address] [place] [address] Dr. Renee Butlerocytes/100 WBC (Bld)6.8 %Normal1.7-12.0[facility] Comment on above:Performed By: #### CBC #### [facility] [address] [place] [address] Dr. Renee Do #6.1 103/ulNormal1.4-6.5The [facility] HospitalComment on above:Performed By: #### CBC #### [facility] [address] [place] [address] Dr. Renee Morautrophils/100 WBC (Bld)69.0 %Nzwdkq26.0-75.0The [facility]cy HospitalComment on above:Performed By: #### CBC #### [facility] [address] [place] [address] Dr. Renee PradoPlatelet mean volume (Bld) [Entitic vol]9.4 fLCritically low 9.5-13.5The Mercy HospitalComment on above:Performed By: #### CBC #### [facility] [address] [place] [address] Dr. Renee PradoPLT269 103/ivXqcxdk259-942Jpj [facility] HospitalComment on above: Performed By: #### CBC #### [facility] [address] [place] [address] Dr. Renee PradoRBC4.78 106/ulNormal4.70-6.10The [facility]cy HospitalComment on above:Performed By: #### CBC #### [facility] [address] [place] [address] Dr. Renee PradoWBC8.9 103/ulNormal4.0-11.0The [facility] HospitalComment on above: Performed By: #### CBC #### [facility] [address] [place] [address] Dr. Renee PradoCREATININE URINEon 44-15-1397KVNTV CREAT51.03 mg/dLNormal 20.00-300.00The [facility]cy HospitalComment on above:Performed By: #### CREAU #### [facility] [address] [place] [address] Dr. Renee PradoGLYCOHEMOGLOBIN A1Con 65-34-7677WJQ RECOMMENDATIONSEE BELOWSt. John Of God HospitalComment on above:Result Comment: ADA RECOMMENDED LIMIT 4.0 - 6.0 ADA THERAPEUTIC TARGET < 7.0 ACTION SUGGESTED > 7.0Performed By: #### A1C #### [facility] [address] [address] [address] Renee PradoGlucose [Mass/Vol]128 mg/dLNoOhioHealth Nelsonville Health CenterComment on above:Performed By: #### A1C #### [facility] [address] [place] [address] Dr. Renee PradoHbA1c (Bld) [Mass fraction]6.1 %Normal4.5-6.2[facility] Ment[facility] HospitalComment on above:Performed By: #### A1C #### [facility] [address] [place] [address] Dr. Renee OnofreID PROFILEon 04-60-1149JOFF-HDL RATIO NORMSEE BELOWUniversity Hospitals Conneaut Medical CenterCommclaren flint on above:Result Comment: 3.3 - 4.4 LOW RISK 4.4 - 7.1 AVERAGE RISK 7.1 - 11.0 MODERATE RISK >11.0 HIGH RISKPerformed By: #### CMP, LIPID #### [facility] [address] [place] [address] Dr. Renee Irvingesterol [Mass/Vol]158 mg/dLNormal<=200[facility] Comment on above:Performed By: #### CMP, LIPID #### [facility] [address] [place] [address] Dr. Renee Irvingesterol in HDL [Mass/Vol]51 mg/jXXipjvn78-52Ann [facility] HospitalComment on above:Performed By: #### CMP, LIPID #### [facility] [address] [place] [address] Dr. Renee Irvingesterol in LDL [Mass/Vol]92.6 mg/dLUniversity Hospitals Conneaut Medical CenterCommclaren flint on above:Performed By: #### CMP, LIPID #### [facility] [address] [place] [address] Dr. Renee PradoCholesterol.total/Cholesterol in HDL [Mass ratio]3.1 {ratio} NormalCleveland Clinic Mentor HospitalComment on above:Performed By: #### CMP, LIPID #### [facility] [address] [address] [address] Renee Alberto NORMAL> or = 60 mg/dl - LOW CARDIOVASCULAR RISK <40 mg/dl - HIGH CARDIOVASCULAR RISKUniversity Hospitals Conneaut Medical CenterComment on above:Performed By: #### CMP, LIPID #### [facility] [address] [place] [address] Dr. Renee PradoLDL CALC NORMALSEE BELOWUniversity Hospitals Conneaut Medical CenterComment on above:Result Comment: <100 mg/dl OPTIMAL 100 - 129 mg/dl NEAR OR ABOVE OPTIMAL 130 - 159 mg/dl BORDERLINE HIGH 160 - 189 mg/dl HIGH >190 mg/dl VERY HIGH Performed By: #### CMP, LIPID #### [facility] [address] [place] [address] Dr. Renee PradoTriglyceride [Mass/Vol]72 mg/dLNormal<=150[facility] Comment on above:Performed By: #### CMP, LIPID #### [facility] [address] [address] [address] Renee MaloneLDL CALC14.4 mg/dLNoOhioHealth Nelsonville Health CenterComment on above: Performed By: #### CMP, LIPID #### [facility] [address] [place] [address] Dr. Renee PradoMICROALBUMIN, RAND URon 37-11-4422rKUO<0.5Normal<=30.0The [facility] HospitalComment on above:Performed By: #### MALBR #### [facility] [address] [address] [address] Renee PradoPROF 14(COMP METB)on 37-69-9261Sajhzka [Mass/Vol]4.0 g/dLNormal 3.4-5.0The [facility] HospitalComment on above:Performed By: #### CMP, LIPID #### [facility] [address] [place] [address] Dr. Renee PradoAlbumin/Globulin [Mass ratio]1.3 {ratio}NormalBarberton Citizens Hospitalment on above:Performed By: #### CMP, LIPID #### [facility] [address] [address] [address] Renee AlasP [Catalytic activity/Vol]40 U/LCritically jli01-589Bjz [facility] HospitalComment on above:Performed By: #### CMP, LIPID #### [facility] [address] [address] [address] Renee AlasT [Catalytic activity/Vol]29 U/WPnrcgm40-62Xea [facility] HospitalComment on above:Performed By: #### CMP, LIPID #### [facility] [address] [place] [address] Dr. Renee Perrinon gap [Moles/Vol]8.4 mmol/LNormalThe [facility]cy HospitalComment on above:Performed By: #### CMP, LIPID #### [facility] [address] [place] [address] Dr. Renee PradoAST [Catalytic activity/Vol]16 U/WPyjzid23-95Jkq St. Francis Hospitalment on above:Performed By: #### CMP, LIPID #### [facility] [address] [place] [address] Dr. Renee PradoBilirubin [Mass/Vol]0.5 mg/dLNormal0.2-1.0[facility] Comment on above:Performed By: #### CMP, LIPID #### [facility] [address] [place] [address] Dr. Renee PradoCalcium [Mass/Vol]9.4 mg/dLNormal8.5-10.1[facility] Comment on above:Performed By: #### CMP, LIPID #### [facility] [address] [place] [address] Dr. Renee PradoChloride [Moles/Vol]103 mmol/GLfegra26-871Srr [facility] Comment on above:Performed By: #### CMP, LIPID #### [facility] [address] [place] [address] Dr. Renee PradoCO2 [Moles/Vol]30.3 mmol/TGyyjys51.0-32.0[facility] Comment on above:Performed By: #### CMP, LIPID #### [facility] [address] [address] [address] Renee PradoCreatinine [Mass/Vol]0.83 mg/dLNormal0.70-1.30The [facility] HospitalComment on above:Performed By: #### CMP, LIPID #### [facility] [address] [address] [address] Renee HayesGFR-AF SLOVENIAN>65Normal>=60The [facility] HospitalComment on above:Performed By: #### CMP, LIPID #### [facility] [address] [address] [address] Renee Mccoy-NON AF SLOVENIAN>65Normal>=60The [facility] HospitalComment on above:Performed By: #### CMP, LIPID #### [facility] [address] [address] [address] Renee PradoGlobulin (S) [Mass/Vol]3.2 g/dLNormalThe [facility]cy HospitalComment on above:Performed By: #### CMP, LIPID #### [facility] [address] [place] [address] Dr. Renee PradoGlucose [Mass/Vol]88 mg/gKFhqivq18-306Tut [facility] Comment on above:Performed By: #### CMP, LIPID #### [facility] [address] [address] [address] Renee PradoPotassium [Moles/Vol]3.7 mmol/LNormal3.5-5.1[facility] Comment on above:Performed By: #### CMP, LIPID #### [facility] [address] [address] [address] Renee PradoProtein [Mass/Vol]7.2 g/dLNormal6.4-8.2[facility] Comment on above:Performed By: #### CMP, LIPID #### [facility] [address] [place] [address] [address] [address] Renee PradoSodium [Moles/Vol]138 mmol/UPlcgzr925-270Arz [facility] Comment on above:Performed By: #### CMP, LIPID #### [facility] [address] [address] [address] Renee Alejandra nitrogen [Mass/Vol]12.0 mg/dLNormal7.0-18.0The [facility] HospitalComment on above:Performed By: #### CMP, LIPID #### [facility] [address] [place], [place] [address] Dr. Renee Alejandra nitrogen/Creatinine [Mass ratio]14.5 mg/mgNoalThe [facility]cy HospitalComment on above:Performed By: #### CMP, LIPID #### [facility] [address] [address] [address] Renee Prado Vital Signs Date TimeVital SignValuePerforming BdiduyobeVkhzrcdg44-14-7605 11:32-0400Body .04 Carlosisa Aichholz [employer]CRIPT WEB DEVELOPER-C Work Phone: [phone]09-30-2025 11:32-0400 Body mass index (BMI) [Ratio]29.2 kg/m2Lisa Aichholz JAVASCRIPT WEB DEVELOPER-C Work Phone: [phone]09-30-2025 11:32-0400 Body zprogryansv90.8 [degF]Sophie Aichholz JAV[employer]CRIPT WEB DEVELOPER-C Work Phone: [phone] [place], [place] 7172209-30-2025 11:32-0400 Body .86 kgLisa Aichholz JAV[employer]CRIPT WEB DEVELOPER-C Work Phone: [phone] [place], [place] 7172209-30-2025 11:32-0400 Diastolic blood panqtkkr40 mm[Hg]Sophie Aichholz JAV[employer]CRIPT WEB DEVELOPER-C Work Phone: [phone]09-30-2025 11:32-0400 Heart rate59 /minLisa Aichholz JAVASCRIPT WEB DEVELOPER-C Work Phone: [phone] [place], [place] 7172209-30-2025 11:32-0400 Respiratory rate18 /minLisa Casandraholz JAVASCRIPT WEB DEVELOPER-C Work Phone: [facility]09-30-2025 11:32-0400 SaO2% (BldA) [Mass fraction]95 %Sophie Guajardoholz JAVASCRIPT WEB DEVELOPER-C Work Phone: [facility]09-30-2025 11:32-0400 Systolic blood gqwxohpp865 mm[Hg]Sophieiram Guajardoholz JAV[employer]CRIPT WEB DEVELOPER-C Work Phone: [facility]08-05-2025 14:30-0400 Body mass index (BMI) [Ratio]31.14 kg/m2Lisa Casandraholz JAVASCRIPT WEB DEVELOPER Work Phone: [facility] InstituteEhaovlbebn64-80-4713 14:30-0400Body temperature 98.49 [degF]Sophie Casandraholz JAVASCRIPT WEB DEVELOPER Work Phone: [facility] InstitutePyzibsdpnr27-64-4617 14:30-0400Body unwkcz347.03 kgLisa Casandraholz JAVASCRIPT WEB DEVELOPER Work Phone: [facility] InstituteNpktedrnco91-73-4700 14:30-0400Diastolic blood ometmhqo90 mm[Hg]Sophie Casandraholz JAVASCRIPT WEB DEVELOPER Work Phone: [facility] InstituteThhsliplla97-71-2805 14:30-0400Heart rate86 /min Sophie Casandraholz JAVASCRIPT WEB DEVELOPER Work Phone: [facility] InstituteYmwgmsaefg69-91-4521 14:30-0400Respiratory rate22 /minLisa Donihholz JAVASCRIPT WEB DEVELOPER Work Phone: [facility] InstituteYnahudxlui22-35-0057 14:30-7717UaA6% (BldA) [Mass fraction]96 %Sophie Casandraholz JAVASCRIPT WEB DEVELOPER Work Phone: [facility] InstituteMnkysmhkmu86-30-5795 14:30-0400Systolic blood ybnkcrgi359 mm[Hg]Sophie Donihholz JAVASCRIPT WEB DEVELOPER Work Phone: [facility] InstituteAspxgvrqyt96-63-3709 14:45-0400Body temperature 96.98 [degF]Drew PÉREZ [facility]2025 14:45-0400Diastolic blood spcuexgc27 mm[Hg]Drew PÉREZ [facility]2025 14:45-0400Heart rate74 /minPatrick BETO [facility]2025 14:45-0400Respiratory rate16 /minPatrick BETO [facility]2025 14:45-0400Systolic blood lodusndt690 mm[Hg]Drew PÉREZ [facility]04-07-2025 10:09-0400Body mass index (BMI) [Ratio]28.73 kg/m2Sophie Delarosa JAVASCRIPT WEB DEVELOPER Work Phone: [facility] InstituteYndupjqjuk11-72-2922 10:09-0400Body temperature 98.49 [degF]Sophie Delarosa JAVASCRIPT WEB DEVELOPER Work Phone: [facility] InstituteUxmcwozwqf67-92-7284 10:090Body .05 kgSophie Delarosa JAVASCRIPT WEB DEVELOPER Work Phone: [facility] InstituteHzvctwwumq06-64-3729 10:09-0400Diastolic blood ehxhpggx60 mm[Hg]Sophie Washington JAVASCRIPT WEB DEVELOPER Work Phone: [facility] InstituteCnqndpdlbt12-39-2712 10:09-0400Heart rate72 /min Sophie Washington JAVASCRIPT WEB DEVELOPER Work Phone: [facility] InstituteTmoeemuzep48-32-0952 10:09-0400Respiratory rate18 /minLisa Washintgon JAVASCRIPT WEB DEVELOPER Work Phone: noS[facility] HospitalCdrrcnsjhk60-79-0075 10:09-3618JvJ1% (BldA) [Mass fraction]98 %Sophie Delarosa JAVASCRIPT WEB DEVELOPER Work Phone: [facility] InstituteTdowvwnoow97-87-3248 10:09-0400Systolic blood msegpvqn369 mm[Hg]Sophie Delarosa JAVASCRIPT WEB DEVELOPER Work Phone: [facility] InstituteIfvzapisyl48-58-7730 15:25-0500Body cm Zoraida Reak JAVASCRIPT WEB DEVELOPER Work Phone: [facility] InstituteDomtxqqlmm46-84-7770 15:25-0500Body mass index (BMI) [Ratio]28.61 kg/y5Badylvav Chavez JAVASCRIPT WEB DEVELOPER Work Phone: [facility] InstituteGadibhaauu60-13-6236 15:25-0500Body temperature 96.6 [degF]Zoraida Broussardpatrick JAVASCRIPT WEB DEVELOPER Work Phone: [facility] InstituteQmsagbygwz40-35-4080 15:25-0500Body rzzgze219.59 kgZoraida Broussardpatrick JAVASCRIPT WEB DEVELOPER Work Phone: [facility] InstituteQnoxuqmwpn22-13-4828 15:25-0500Diastolic blood uursidzc56 mm[Hg]Zoraida Chavez JAVASCRIPT WEB DEVELOPER Work Phone: [facility] InstituteIxjbuarbir94-00-2557 15:25-0500Heart rate79 /min Zoraida Chavez JAVASCRIPT WEB DEVELOPER Work Phone: [facility] InstituteOgbyaryopr86-24-8484 15:25-0500Respiratory rate16 /minZoraida Palacioszpatrick JAVASCRIPT WEB DEVELOPER Work Phone: [facility] InstituteAhhkpllsdg52-72-5007 15:25-9414ZlT2% (BldA) [Mass fraction]97 %Zoraida Chavez JAVASCRIPT WEB DEVELOPER Work Phone: [facility] InstituteLbonwwccew19-44-7707 15:25-0500Systolic blood vypktpnb312 mm[Hg]Zoraida Chavez JAVASCRIPT WEB DEVELOPER Work Phone: [facility] InstituteZwtevggilb02-67-2056 11:45-0500Diastolic blood xzblolal91 mm[Hg][facility]02-01-2024 11:45-0500Heart rate69 /[facility]02-01-2024 11:45-0500Respiratory rate18 /[facility]02-01-2024 11:45-4570DuI7% (BldA) [Mass fraction]99 %[facility]02-01-2024 11:45-0500 Systolic blood bbnfaqla675 mm[Hg][facility]02-01-2024 09:23-0500Body ocyclo263.04 cmL[facility]02-01-2024 09:23-0500Body mgwtti208.86 kgL[facility]09-12-2023 10:47-0400Blood Pressure LocationJENNIFER MARIELA [facility]09-12-2023 10:47-0400Diastolic blood mm[Hg]CLARISSA MARIELA [facility]09-12-2023 10:47-0400Heart rate78 /minJENNIFER MARIELA [facility]09-12-2023 10:47-0400Respiratory rate16 /minJENNIFER MARIELA [facility]09-12-2023 10:47-0400Systolic blood cpqjpubb811 mm[Hg]CLARISSA MARIELA [facility] Encounters Encounter DateEncounter TypeCare ProviderFacilityStart: 71-34-1643qdksxmvmxksae PÉREZFacility:[facility]Pe[facility] Servicestart: 22-57-4360tbmuadmraeDqicssq R WATERS Facility:[facility] Ohiotart: 06-10-2025 End: 55-87-5812jraocebhqcWWKFUCity Hospitaltart: 06-07-2025 End: 65-47-1905putnuuccyyXgxc J Aichholz JAVASCRIPT WEB DEVELOPER-C Work Phone: [facility] Work Phone: Start: 06-07-2025 End: 01-23-5786Xwlzisa encounter procedureLisa Mazin Delarosa JAVASCRIPT WEB DEVELOPER-C-[facility] Work Phone: Start: 88-41-3422Czieius encounter statusLisa Delarosa JAVASCRIPT WEB DEVELOPER-C Work Phone: [facility] Centertart: 73-35-1192Qom- patient / Non-visitClinton Reynoso [facility] Work Phone: Start: 05-13-2025 End: 37-24-1095hxwpclxgcuOetouer R WATERSFacility:EU BellevueStart: 05-13-2025 End: 00-01-6601Nuzzhyi encounter Pedro PÉREZ [facility] start: 05-03-2025 End: 86-57-2358YquwefItta Aichholz JAVASCRIPT WEB DEVELOPER Work Phone: noms CWM FMComment on above:Acute rhinitisIron deficiencyStart: 04-14-2025 End: 65-66-3089szfoxeeeezBzpffib [facility] Work Phone: Start: 04-14-2025 End: 19-36-8217Rouqpufl ReferredDrew Pérez MD-LAB [facility] Start: 04-14-2025 End: 57-24-4011pdxkjiakehSlmpyjq R WATERSFacility:CD:[id number]: 04-12-2025 End: 32-92-9428Puvyid outpatient visit 25 minutesLisa Delarosa JAVASCRIPT WEB DEVELOPER Work Phone: noms CWM FMComment on above:Prediabetes (Primary Dx); Primary hypertension ; Hydrocele in adult; Acute non-recurrent maxillary sinusitis; LymphocytopeniaStart: 04-12-2025 End: 95-65-7117Phdphl Morgan Guajardoshonda JAVASCRIPT WEB DEVELOPER Work Phone: noms CWM FMStart: 04-12-2025 End: 16-80-1249Dzlckn Morgan Guajardoshonda JAVASCRIPT WEB DEVELOPER Work Phone: noms CWM FMStart: 73-61-7436ecpilvfvglAeactwz R WATERS Facility:[facility] [place]vueStart: 04-04-2025 End: 71-31-2532ZxnitbEitd Naderer MD Work Phone: noms CW FMComment on above:Iron deficiencyStart: 03-26-2025 End: 69-37-8254Txrhjhkab Result EncounterGeneric External Data ProviderNOMS External Department UnsolicitedStart: 03-26-2025 End: 75-32-8961Npqyvpref Result EncounterGeneric External Data ProviderNOMS External Department UnsolicitedStart: 03-18-2025 End: 39-01-3104nbaxkqqdmeNXLQBCity Hospitaltart: 03-18-2025 End: 28-07-3419Vzqcnapxp for other preprocedural examinationSSumma Healthtart: 03-16-2025 End: 91-21-1233Cpykyf Kayce Guajardoshonda JAVASCRIPT WEB DEVELOPER Work Phone: noms CW FMComment on above:Abnormal EKG (Primary Dx) Start: 03-14-2025 End: 91-46-8899Pibaowanj Result EncounterGeneric External Data ProviderNOMS External Department UnsolicitedStart: 03-14-2025 End: 25-97-9009Imlwnpxwb Result EncounterGeneric External Data ProviderNOMS External Department UnsolicitedStart: 03-07-2025 End: 39-76-6393cyhjftfgidScgwuqi R WATERSFacility:EU BellevueStart: 03-07-2025 End: 85-58-1759Mintipb encounter procedureDrew PÉREZ [facility] start: 03-06-2025 End: 57-29-3285IfsvclFnko Naderer MD Work Phone: NOMS CWM FMComment on above:Other chronic painStart: 03-05-2025 End: 12-29-9826CnrrojNvqv Naderer MD Work Phone: NOM[facility] CWM FMComment on above:BPH with urinary obstructionStart: 02-25-2025 End: 51-37-1227LpgfopCjta Naderer MD Work Phone: N[facility] CWM FMComment on above:PrediabetesStart: 02-23-2025 End: 66-81-6034ZmitqfGoan Naderer MD Work Phone: [facility] CWM FMComment on above:Hyperlipidemia, unspecified hyperlipidemia typeStart: 02-09-2025 End: 01-56-3901Wuocnwlcx Result EncounterGeneric External Data ProviderNOMS External Department UnsolicitedStart: 02-09-2025 End: 13-32-3195Uodrbfgup Result EncounterGeneric External Data ProviderNOMS External Department UnsolicitedStart: 01-25-2025 End: 09-32-8470ucytwmtojfWiycbmk R WATERSFacility:EU [place]kyStart: 01-25-2025 End: 14-53-1242Irtknvq encounter procedureDrew PÉREZ [facility] Start: 01-12-2025 End: 00-04-4610FgmfrbQxry Naderer MD Work Phone: N[facility] CWM FMComment on above:Primary hypertension (CMS/HCC)Start: 01-03-2025 End: 84-95-7588AdkdvcEcfv Naderer MD Work Phone: [facility] CWM FMComment on above:Acute rhinitisStart: 12-18-2024 End: 66-50-1005Urlltradu Result EncounterLisa Iniguezz JAVASCRIPT WEB DEVELOPER Work Phone: noms External Department UnsolicitedStart: 12-18-2024 End: 73-99-8121Ehrrmlpoc Result EncounterLisa Guajardoholz JAVASCRIPT WEB DEVELOPER Work Phone: noms External Department UnsolicitedStart: 12-17-2024 End: 80-51-2235Dvtuma OnlyLisa Casandraholz JAVASCRIPT WEB DEVELOPER Work Phone: noms CWM FMComment on above:Hydrocele in adult (Primary Dx); Swelling of left half of scrotumStart: 12-14-2024 End: 15-76-3743Xaepwjwgl Result EncounterLisa Iniguezz JAVASCRIPT WEB DEVELOPER Work Phone: noms External Department UnsolicitedStart: 12-14-2024 End: 19-30-2182Bumkkxkav Result EncounterLisa Guajardoholz JAVASCRIPT WEB DEVELOPER Work Phone: noms External Department UnsolicitedStart: 12-13-2024 End: 76-82-8983Hbejkz flowsheetLisa Guajardoholz JAVASCRIPT WEB DEVELOPER Work Phone: noms CWM FMStart: 12-13-2024 End: 28-41-0434Zcsdqp flowsheetSophie Guajardoholz JAVASCRIPT WEB DEVELOPER Work Phone: noms CWM FMStart: 12-13-2024 End: 81-00-3279Vluqxy outpatient visit 25 minutesLisa Guajardoholz JAVASCRIPT WEB DEVELOPER Work Phone: noms CWM FMComment on above:Swelling of left half of scrotum (Primary Dx); Primary hypertension (CMS/HCC); BPH with urinary obstruction; Erectile dysfunction, unspecified erectile dysfunction type; Prediabetes; Iron deficiency anemia, unspecified iron deficiency anemia type; Mixed hyperlipidemia (CMS/HCC); Screening for prostate cancer; MAR (obstructive sleep apnea)Start: 12-13-2024 End: 81-58-1475egymeroiqrRPCY MICHELot AvailableStart: 09-05-2024 End: 54-99-5486UjbeteBcabdcxy Chavez JAVASCRIPT WEB DEVELOPER Work Phone: [facility] CWM FMComment on above:PrediabetesStart: 08-30-2024 End: 11-28-9270GjnykwJkdwmjkn Chavez JAVASCRIPT WEB DEVELOPER Work Phone: [facility] CWM FMComment on above:Primary hypertension (CMS/HCC)Start: 08-24-2024 End: 87-09-1641Xsteaz outpatient visit 15 minutesArchanakhalif PalaciosChavez JAVASCRIPT WEB DEVELOPER Work Phone: [facility] CWM FMComment on above:Primary hypertension (CMS/HCC) (Primary Dx); Iron deficiency; Other chronic pain; BPH with urinary obstruction; Prediabetes; Mixed hyperlipidemia (CMS/HCC); Acute rhinitisStart: 08-24-2024 End: 01-13-4345feqbglnwdfWXJAJZJO FITZPATRICKNot AvailableStart: 08-24-2024 End: 95-26-9036Dortmw flowsheetBrittany Chavez JAVASCRIPT WEB DEVELOPER Work Phone: [facility] CWM FMStart: 08-24-2024 End: 37-85-4827Faqkoy flowsheetBrittany Chavez JAVASCRIPT WEB DEVELOPER Work Phone: [facility] CWM FMStart: 08-12-2024 End: 76-73-1409GxlsgdBmhddpyu Chavez JAVASCRIPT WEB DEVELOPER Work Phone: [facility] CWM FMComment on above:Other chronic painStart: 08-12-2024 End: 62-81-8273MilnoaFluvflig Chavez JAVASCRIPT WEB DEVELOPER Work Phone: [facility] CWM FMComment on above:TIA (transient ischemic attack)Start: 08-10-2024 End: 36-05-3414DnwbhtSaxqMagalie CAMEJO CWM FMComment on above:Hyperlipidemia, unspecified hyperlipidemia type (CMS/HCC)Start: 07-14-2024 End: 05-57-7146HadatpFgecMagalie CAMEJO CWM FMComment on above:Other chronic painStart: 07-12-2024 End: 16-79-1692GphrjpCxngcrkh Chavez JAVASCRIPT WEB DEVELOPER Work Phone: noms CWM FMComment on above:Primary hypertension (CMS/HCC)Start: 06-23-2024 End: 11-47-9638Zvbxvo flowsheetMaria B Apling JAVASCRIPT WEB DEVELOPER Work Phone: noms CI ORTHOPAEDICSStart: 06-23-2024 End: 10-72-4690Oltlqj flowsheetMaria B Apling JAVASCRIPT WEB DEVELOPER Work Phone: noms CI ORTHOPAEDICSStart: 06-23-2024 End: 78-17-3032Axyibg outpatient visit 25 minutesMaria B Apling JAVASCRIPT WEB DEVELOPER Work Phone: noms CI ORTHOPAEDICSComment on above:Left knee pain, unspecified chronicity (Primary Dx); Arthritis of left kneeStart: 06-23-2024 End: 45-36-2484rdztjpdtqvRMZOY B APLINGNot AvailableStart: 06-21-2024 End: 82-91-0857VidslvCsqeyzi LykinsNOMS CWM FMComment on above:Iron deficiency Start: 03-29-2024 End: 10-54-9370mcxmknisgwLNJRF B APLINGNot AvailableStart: 03-15-2024 End: 13-79-4775uxnbzdgomjGSWPX B APLINGNot AvailableStart: 03-08-2024 End: 41-12-1123lahyfrahzuOZIKB B APLINGNot AvailableStart: 02-25-2024 End: 37-15-0105uuhzpcnhqjNPCEFV FAWWADNot AvailableStart: 92-62-3350Dep-patient / Non-visitFirelands Physician [facility] Work Phone: Start: 75-18-1560Fridee Destini Carlos MD Work Phone: [phone]-UVET ATLASComment on above:Anemia, unspecifiedStart: 87-39-2589Ubrougf encounter statusWendy Syed HealthcareStart: 2023 End: 29-86-0582Cvweony encounter procedureJERACHAEL Cowan MARIELA [facility] System start: 06-25-2022 End: 82-74-2365boqkidicwoXQUBKQ H FAWWADFacility:H1 Procedures DateProcedureProcedure DetailPerforming ClinicianStart: 47-62-9708Pihyse-up visitFollow-upSAMAR KHOURYStart: 08-74-7318Sfnquaewpn glycosylated v2aIykr Donihholz JAVASCRIPT WEB DEVELOPER Work Phone: Start: 00-39-4052IK ECHO DOPPLER COMPLETEGeneric External Data ProviderStart: 93-85-6721ZVQ BASIC METABOLIC PANELGeneric External Data ProviderStart: 21-65-6287XKE 12-LEADGeneric External Data ProviderStart: 36-70-1595Iv scrotum & contentsGeneric External Data ProviderStart: 01-25-2025 Flexible cystoscope (physical object)Drew PÉREZ Start: 46-11-2232TME CBC WITH AUTO DIFFLisa Donihholz JAVASCRIPT WEB DEVELOPER Work Phone: Start: 61-68-4061Av scrotum & contentsLisa Aichholz JAVASCRIPT WEB DEVELOPER Work Phone: Start: 38-06-3038Huynoutuotoqjd aspir&/inj major jt/bursa w/o usMaria B Apling JAVASCRIPT WEB DEVELOPER Work Phone: Start: 34-93-6394Glajbwcfgfsy [Mass/volume] in Urine by Test Edward Carlos MD Work Phone: Start: 13-89-5455HNX screeningSHAIKH HERNANomment on above:Performed By: #### PSAD #### [facility] [address] [place] [address] Dr. Renee PradoStart: 35-09-8920CekokatwatmZcpurhz LykinsCarpal tunnel syndrome (disorder)CLARISSA SIERRA ColonoscopyCLARISSA SIERRA H/O: surgeryStatus post repair of hydrocelePatrick PÉREZ TonsillectomyCLARISSA MOCKRY Plan of Treatment DateCare ActivityDetailAuthorStart: 36-49-9270GWcM,Tdap and Td Vaccines (2 - Td or Tdap)DTaP,Tdap and Td Vaccines (2 - Td or Tdap)[facility] SystemStart: 77-83-4129Boakivsbe for malignant neoplasm of colonNOPR HealthcareStart: 53-70-8462Mrnmt screening for proteinDiabetes: Urine Protein ScreeningNOPR HealthcareStart: 03-90-3537Kzptkfye screeningDiabetes: Retinopathy ScreeningNOPR HealthcareStart: 07-14-2025 End: 82-21-0085Pjdxpmr encounter /06/2025 1:20 PM EST Office Visit [facility] [address] [place] [phone] Sophie Delarosa, DAYNE [address] [place] [address] [facility] FMStart: 05-13-2025 End: 83-82-0388QPK W Auto Differential panel - BloodCBC and differential Lab Routine Lymphocytopenia Expected: 05/13/2025 (Approximate), Expires: 04/12/2026 [facility] Work Phone: Comment on above:Expected: 05/13/2025 (Approximate), Expires: 04/12/2026Start: 40-62-0350Bgcmvfgsp vaccinationInfluenza Vaccine (#1) [facility] InstituteStart: 04-12-2025 End: 85-62-7725Hophorc encounter procedureNOALLIANCEHEALTH [facility] FMComment on above:Primary hypertension (Primary Dx); Hydrocele in adult; PrediabetesStart: 03-16-2025 End: 40-98-7278GJC 12 leadECG 12 lead ECG Routine Abnormal EKG Expected: 03/16/2025 (Approximate), Expires: 03/16/2026[facility] Work Phone: Comment on above:Expected: 03/16/2025 (Approximate), Expires: 03/16/2026Start: 03-14-2025 End: 70-27-9561Duclhde encounter tpmeowmzf34/07/2025 3:20 PM EDT Office Visit [facility] [address] [place] [address] Sophie Delarosa, JAVASCRIPT WEB DEVELOPER [address] [place] [address] [facility] FMStart: 02-23-2025 End: 47-82-9297Buyjegx encounter procedureNOALLIANCEHEALTH [facility] FMStart: 12-13-2024 End: 77-60-3318NSX W Auto Differential panel - BloodCBC and differential Lab Routine Iron deficiency anemia, unspecified iron deficiency anemia type Exp ected: 12/13/2024 (Approximate), Expires: 12/13/2025[facility] Work Phone: Comment on above:Expected: 12/13/2024 (Approximate), Expires: 12/13/2025Start: 12-13-2024 End: 34-68-3871Akhtuolyompol metabolic 2000 panel - Serum or PlasmaComprehensive metabolic panel Lab Routine Primary hypertension ([facility]/HCC) Prediabetes Mixed hyperlipidemia ([facility]/HCC) Expected: 12/13/2024 (Approximate), Expires: 12/13/2025 [facility] HealthcareComment on above:Expected: 12/13/2024 (Approximate), Expires: 12/13/2025Start: 12-13-2024 End: 40-24-8184Hzfedjlk [Mass/volume] in Serum or PlasmaFerritin Lab Routine Iron deficiency anemia, unspecified iron deficiency anemia type Expected: 12/13 (Approximate), Expires: 12/13/2025[facility] HealthcareComment on above: Expected: 12/13/2024 (Approximate), Expires: 12/13/2025Start: 12-13-2024 End: 89-25-6340Iwqexgusin A1c/Hemoglobin.total in BloodHemoglobin A1c Lab Routine Prediabetes Expected: 12/13/2024 (Approximate), Expires: 12/13/2025[facility] HealthcareComment on above:Expected: 12/13/2024 (Approximate), Expires: 12/13/2025Start: 12-13-2024 End: 19-02-3240Ooxc + transferrin + TIBCIron + transferrin + TIBC Lab Routine Iron deficiency anemia, unspecified iron deficiency anemia type Expected: 12/13/2024 (Approximate), Expires: 12/13/2025[facility] HealthcareComment on above: Expected: 12/13/2024 (Approximate), Expires: 12/13/2025Start: 12-13-2024 End: 19-77-3288Zlsap 1996 panel - Serum or PlasmaLipid panel Lab Routine Mixed hyperlipidemia (CMS/HCC) Expected: 12/13/2024 (Approximate), Expires:12/13/2025 [facility] HealthcareComment on above:Expected: 12/13/2024 (Approximate), Expires: 12/13/2025Start: 12-13-2024 End: 17-46-4932Zrzwsxxjmbsz/Creatinine panel in random UrineMicroalbumin / creatinine, urine ratio Lab Routine Primary hypertension (CMS/HCC) Prediabetes Expected: 12/13/2024 (Approximate), Expires: 12/13/2025[facility] HealthcareComment on above:Expected: 12/13/2024 (Approximate), Expires: 12/13/2025Start: 12-13-2024 End: 88-00-3367Tszdcxxw specific Ag [Mass/volume] in Serum or PlasmaPSA Lab Routine Screening for prostate cancer Expected: 12/13/2024 (Approximate), Expires: 12/13/2025[facility] HealthcareComment on above:Expected: 12/13/2024 (Approximate), Expires: 12/13/2025Start: 12-13-2024 End: 51-50-5591Bmayigrmuh complete panel - UrineUrinalysis with reflex microscopic (clean catch) Lab Routine Primary hypertension (CMS/HCC) Prediabetes Expected: 12/13/2024 (Approximate), Expires: 12/13/2025[facility] HealthcareComment on above:Expected: 12/13/2024 (Approximate), Expires: 12/13/2025Start: 12-13-2024 End: 79-00-4563EK Scrotum and testicleUS scrotum Imaging High Priority Swelling of left half of scrotum Expected: 12/13/2024 (Approximate), Expires: 12/13/2025 [facility] HealthcareComment on above:Expected: 12/13/2024 (Approximate), Expires: 12/13/2025Start: 12-13-2024 End: 89-29-9522Bvhqkwj encounter buupkgmai68/07/2025 10:00 AM EDT Office Visit [facility] [address] [place] [address] Sophie Delarosa NP [address] [place] [address] Primary hypertension (CMS/HCC) (Primary Dx); BPH with urinary obstruction; Erectile dysfunction, unspecified erectile dysfunction type; Prediabetes; Iron deficiency anemia, unspecified iron deficiency anemia type; Mixed hyperlipidemia (CMS/HCC); Screening for prostate cancer; Swelling of left testicleNOMS CWM FMComment on above:Primary hypertension (CMS/HCC) (Primary Dx); BPH with urinary obstruction; Erectile dysfunction, unspecified erectile dysfunction type; Prediabetes; Iron deficiency anemia, unspecified iron deficiency anemia type; Mixed hyperlipidemia (CMS/HCC); Screening for prostate cancer; Swelling of left testicleStart: 08-24-2024 End: 21-92-7308Surorkm encounter procedureNOMS CWM FMComment on above:Arrived Start: 08-23-2024 End: 42-61-3468Fcjffex encounter /16/2024 8:00 AM EST Office Visit [facility] [address] [facility] [address] [place] [address] Barbara Messer NP [address] [place] [address] [facility]ICSStart: 06-23-2024 End: 68-74-5744Fifztnx encounter procedureNOMS CI ORTHOPAEDICSComment on above: Left knee pain, unspecified chronicity (Primary Dx); Arthritis of left kneeStart: 49-89-2952Cjoxjgelb vaccinationInfluenza Vaccine (#1)[facility] HealthcareStart: 22-98-3955Uyejy screening for proteinDiabetes: Urine Protein ScreeningThe Rehabilitation InstituteStart: 27-98-6568Gencc screening for protein Urine MicroalbuminProKing'S Daughters Medical Center [place] SystemStart: 89-45-2480QgiijwbieMercy Health St. Vincent Medical Centertart: 09-03-2023 End: 78-35-2722Kogzyijd [Mass/volume] in Serum or PlasmaFerritin Lab Routine Anemia, unspecified Expected: 09/03/2023, Expires: 09/03/2024[facility] Work Phone: Comment on above:Expected: 09/03/2023, Expires: 09/03/2024Start: 13-71-2208Btvso BMI ScreeningAdult BMI ScreeningProKing'S Daughters Medical Center [place] SystemStart: 71-90-3327Juprjoq ScreeningTobacco ScreeningProKing'S Daughters Medical [facility] [place] SystemStart: 03-74-0109Butg Risk ScreeningFall Risk ScreeningTr[facility] SystemStart: 12-32-6721Wvfrqohz foot examinationDiabetic Foot ExamProKing'S Daughters [facility] [place] SystemStart: 94-90-7418Aqikndyvso ScreeningDepression ScreeningProKing'S Daughters [facility] [place] SystemStart: 23-67-5435Mxrjzgrt screeningDiabetic Ophthalmology Exam [facility] SystemStart: 1957Medicare Annual Wellness VisitMedicare Annual Wellness VisitTrinity Health [facility] SystemStart: 19-30-1418Sajuzwpsq for malignant neoplasm of colonNOPR HealthcareMicroalbumin/Creatinine panel in random UrineMicroalbumin / creatinine urine ratio Lab Routine Primary hypertension (CMS/HCC) Ordered: 08/24/2024[facility] Work Phone: Comment on above:Ordered: 08/24/2024 Immunizations Immunization DateImmunizationNotesCare VfknuwgdDbexccyz30-04-6610mvkzermzb virus vaccine, unspecified formulationPanorton suburban hospitalHumanCloud [facility] [place] [address]181-02-2024influenza, high dose seasonal, preservative-freeMarc Chris WEAVER Work Phone: [facility] InstituteAxjwyndvzt03-43-4760htjckmhnc virus vaccine, unspecified formulationCoBuffaloPacifictwila PÉREZ [facility] Ohioment on above:Result Comment: 2025-01-17: TEA ITF71-46-8391 influenza, seasonal, injectableBrittany Chavez JAVASCRIPT WEB DEVELOPER Work Phone: [facility] InstituteHbglhmvnlg73-92-9974Batljdjbjput Conjugate PCV 20 [facility] [place]12-08-2023RSV vaccine preF3, recombinantPatrick PÉREZ [facility]12-08-2023RSV, recombinant, protein subunit RSVpreF, adjuvant reconstitu, 120mcg/0.5mL, PF (Arexvy)[facility] [place]10-15-2023 Influenza, Seasonal, Quadrivalent, AdjuvantedMorristown-[facility], [place] 22-17-1154wwpuzfauj virus vaccine, unspecified formulationMountain View Regional Medical Centerkevin [facility] [place] 323180-27-2022SARS-CoV-2 (COVID-19) mRNAMUL.ORD![id number] MARIELA [facility]10-08-2022influenza virus vaccine, unspecified formulationADITIRACHAEL MOCKRY [facility]10-08-2022Influenza, Seasonal, Quadrivalent, AdjuvantedKrwesley HerreraCenterpoint Medical CenterIrlcoxovec67-49-1211KGHT-UpT-1 (COVID-19) mRNA BNT-162b2 vaxCLARISSA MARIELA [facility]03-12-2021SARS-CoV-2 (COVID-19) mRNA BNT-162b2 vaxJENNIFER MARIELA [facility] SystemComment on above:Result Comment: 2023: NGP0480-11-8724lgmvmmbax virus vaccine, unspecified formulationJENNIFER MARIELA [facility]10-23-2020influenza, injectable, quadrivalent, preservative freeMorristown-[facility], [place]10-23-2020tetanus toxoid, reduced diphtheria toxoid, and acellular pertussis vaccine, adsorbedJENNIFER MARIELA [facility]07-08-2020zoster vaccine recombinantJENNIFER MARIELA [facility]02-03-2020zoster vaccine recombinantJENNIFER MARIELA [facility]11-21-2019influenza virus vaccine, unspecified formulationJENNIFER MARIELA [facility]11-21-2019influenza, injectable, quadrivalent, preservative freeMorristown-[facility], [place]11-09-2018influenza virus vaccine, unspecified formulation CLARISSA MARIELA [facility]11-09-2018Influenza, injectable, Madin Rosalind Canine Kidney, preservative free, quadrivalentMorristown-Hamblen Hospital, [place]04-13-2017zoster vaccine, live CLARISSA MARIELA [facility]01-11-2010novel zvfvxioco-V4I5-55, preservative-free, injectableMorristown-[facility], [place] Payers DatePayer CategoryPayerPolicy [id number] Health [id number] Health Insurance [id number] Health [id number] 2.16.840.1.235143.3.579.2.593 [id number] 2.16.840.1.528234.3.57[id number] 2.16.840.1.900173.3.57[id number] 2..840.1.372152.3.57[id number] 2.16.840.1.702011.3.57[id number] 2.16.840.1.674389.3.57[id number] 2.16.840.1.052496.3.57[id number] 2.16.840.1.120095.3.57[id number] 2.16.840.1.004760.3.57[id number] 2.16.840.1.301847.3.57[id number] 2.16.840.1.768808.3.57[id number] 2.16.840.1.321075.3.57[id number] 2..840.1.772915.3.57[id number] 2..840.1.303603.3.57[id number] 2..0.1.451664.3.57[id number] 2..840.1.8809[id number]-[id number] 2..840.1.489617.3.579.2.531 Social History DateTypeDetailFacilityStart: 2023 End: 63-40-4240Cjjtkaf smoking statusNever smoked tobacco (finding)[facility] smoking statusNever [facility] Hospitaltart: 08-25-2023 End: 95-16-6319Ert Assigned At [facility]burgtart: 68-09-5369Tfu Assigned At [facility] Centertart: 12-03-2021 End: 58-02-1869Geaikqu use and exposureSmokeless tobacco non-userProMedica Health SystemStart: 03-29-2024 End: 50-70-8943Rtrjwihfy beverage intakeLifetime non-drinker (finding)[facility] HealthcareStart: 08-25-2023 End: 77-66-3717Bbhzxum of Social functionNOMS HealthcareWithin the last year, have you been afraid of your partner or ex-partner?NoNOMS HealthcareDo you belong to any clubs or organizations such as anabaptism groups, unions, fraternal or athletic groups, or school groups?YesNOMS HealthcareAre you now , , , , never or living with a partner?MarriedNOMS HealthcareHow often to you have a drink containing alcohol?NeverN[facility]S Healthcare Do you feel stress - tense, restless, nervous, or anxious, or unable to sleep at night because yourmind is troubled all the time - these days [OSQ]Only a little [facility] HealthcareStart: 20-91-2449Lia assigned at birthNot on fileLakeHealth Beachwood Medical Center Health SystemStart: 53-96-1002Ysawgxr intakeEx-drinker (finding)[facility] SystemSexual OrientationExec[facility] of [facility] SexMale (finding)[facility] HospitalNEGATED: Highlighted rowStart: NINFHistory of tobacco usePassive smokerNOPR Healthcare Functional Status JrvvBattomgvwnPrdbkeQasgryrz85-70-7175Pngvverwrg StatusN/AExec[facility] of [facility]09-12-2023Functional StatusN/AExec[facility] Clinical Notes 2023 to 06-10-2025 Note Date & ZqmsYbmfChdaojgf53-65-0147 [facility] Reason for cardiology visit: Follow-up after surgery, follow-up on abnormal EKG, TIA, hypertension, and hyperlipidemia HPI: 06/10/2025 Patient is here today for follow-up visit. He reports that last week he had chest tightness on and off at rest or with exertion, it was located at his mid chest and it was not affected with exertion, lasted many hour,s different from the chest pain had in 2021. No associated diaphoresis or nausea. He reports that he was very stressed out, he just retired and he has a lot of anxiety regarding a lot of issues. He denies GERD. He went to the hospital ED 06/03/2025, EKG was normal and troponines were negative He reports occasional shortness of breath with exertion. He denies orthopnea or paroxysmal nocturnal dyspnea or dizziness or palpitations. He denies legs edema. He denies smoking or alcohol consumption 03/18/2025 Marti Morgan is a 70 y.o. male without prior cardiac history, he [...] smoker. He denies alcohol or illicit drugs ROS: All systems were reviewed and they were negative except for the positive findings noted above in the history Past Medical History He has a past medical history of Abnormal ECG, Diabetes mellitus ([facility]), Hyperlipidemia, Hypertension, and Stroke ([facility]). Surgical History He has no past surgical history on file. Social History He reports that he has never smoked. He has never used smokeless tobacco. He reports that he does not currently use alcohol. He reports that he does not use drugs. Family History Family History[1] Allergies Patient has no known allergies. Medications Current Medications[2] Last Recorded Vitals Visit Vitals BP 114/69 (BP Location: Left arm, Patient Position: Sitting) Pulse 74 Ht 1.93 m (6' 4 ) Wt 122 kg (270 lb) SpO2 95% BMI 32.87 kg/m??? Smoking Status Never BSA 2.56 m??? Physical Examination: GENERAL: alert and oriented x3, well developed, in no acute distress. HEAD: atraumatic, normocephalic. EYES: MICHAELA, EOMI. NECK: trachea midline, no JVD present, no carotid bruits present. CARDIAC: S1, S2 present. RRR. No murmur, rubs, or gallops. RESPIRATORY: CTAB, no increased effort of breathing, no rales, rhonchi, or wheezing. ABDOMEN: soft, nontender, nondistended. EXTREMITIES: no lower extremity edema. No rash/skin discoloration present. NEURO: strength/sensation equal and symmetric in bilateral upper and lower extremities. PSYCH: appropriate mood, affect, and judgement. Labs: 06/03/2025 White blood count 10.8, hemoglobin 13.8, hematocrit 40.9, platelets 285 Sodium 138, potassium 3.6, BUN 24, creatinine 0.83, GFR above 60, glucose 85, calcium 9.2 High-sensitivity troponin 8 and 9.8 03/14/2025 White blood count 10.9, hemoglobin 13.9, hematocrit 41.8, platelets 266 INR 0.99, PTT 25 Sodium 144, potassium 4.4, BUN 18, creatinine 0.69, GFR above 60, glucose 127, calcium 9.1 12/18/2024 HbA1c 5.8% AST 21, ALT 34, alk phos 45, total protein 6.7, albumin 3.6 Triglyceride 29, cholesterol 105, LDL 41, HDL 58 PSA 1.0 Last Images: EKG 06/03/2025 showed normal sinus rhythm with sinus arrhythmia and nonspecific intraventricular conduction delay EKG 03/14/2025 showed normal sinus rhythm with occasional PACs, possible old inferior infarct, T wave abnormalities in lateral leads EKG 09/14/2021 showed sinus rhythm with PACs and PVCs, probable left atrial enlargement, otherwise normal EKG EKG 09/14/2021 showed normal sinus rhythm with PVCs, possible left atrial enlargement, otherwise normal EKG Echo 03/24/2025 at [facility] Echo 11[facility]20[facility] Left Ventricle: Systolic function is normal with [...] Atrium Right atrium is mildly dilated. The rig (more content not included)...[facility]09-05-2025 Hospital Discharge instructions Patient Education 05/13/2025 09:35:31 [...] Follow these instructions at home: Medicines Take tvii-lph-rvrqoux and prescription medicines only as told by your health care provider. Ask your health care provider if the medicine prescribed to you: ?Requires you to avoid driving or using machinery. ?Can cause constipation. You may need to take these actions to prevent or treat constipation: ?Drink enough fluid to keep your urine pale yellow. ?Take irdj-cab-ctmlbgx or prescription medicines. ?Eat foods that are high in fiber, such as beans, whole grains, and fresh fruits and vegetables. ?Limit foods that are high in fat and processed sugars, such as fried or sweet foods. Bathing Do not take baths, swim, or use a hot tub until your health care provider approves. Ask your healthcare provider if you may take showers. You may only be allowed to take sponge baths. If you were told to wear an athletic support strap (scrotal support), keep it dry. Take it off whenyou shower or bathe. Incision care Follow instructions from your health care provider about how to take care of your incision. Make sure you: ?Wash your hands with soap and water for at least 20 seconds before and after you change your bandage (dressing). If soap and water are not available, use hand warehousing technician. ?Change your dressing as told by your [...] your health care provider approves. Ask your healthcare provider if you may take showers. If [...] provider. Document Revised: 04/11/2022 Document Reviewed: 04/11/2022 [employer] Patient Education 2023 [employer]. Follow Up Care 04/05/2025 08:41:06 With:BETO WEAVER, [employer], URL Address: [address] [place] [address] [place] [address] When: Unknown Comments:6 mos [facility] 09-05-2025 NotePatient Education Urology Hydrocelectomy, Adult, Care After The [...] these instructions at home: Medicines ??? Take fsgn-rjd-ftksgto and prescription medicines only as told by your health care provider. ??? Ask your health care provider if the medicine prescribed to you: ? Requires you to avoid driving or using machinery. ? Can cause constipation. You may need to take these actions to prevent or treat constipation: ? Drink enough fluid to keep your urine pale yellow. ? Take pmkt-xkd-gfnuexn or prescription medicines. ? Eat foods that [...] and water are not available, use hand warehousing technician. ? Change your dressing as told by your health care provider. ? Leave stitches (sutures), skin glue, or adhesive strips in place. These skin closures may need tostay in place for 2 weeks or longer. If adhesive strip edges start to loosen and curl up, you may trim the loose edges. Do not remove adhesive strips completely unless your health care provider tellsyou to do that. ??? Check your incision [...] swelling. ??? Do not (more content not included)...[facility]08-05-2025 History of Present illness Narrative* Sophie Delarosa NP - 04/12/2025 3:23 PM EDT Associated Problem(s): Acute non-recurrent maxillary sinusitis Add loratadine to nasal steroids Add atb as well If not better RTO * YAVN ROBERTS - 04/12/2025 2:20 PM EDT Possible allergies- drainage, runny nose * Sophie Guajardochiaralisa, JAVASCRIPT WEB DEVELOPER - 04/12/2025 2:20 PM EDT Images from the original note were [...] 4 weeks ago. The problem has been graduallyworsening since onset. There has been no fever. [...] DM II (diabetes mellitus, type II), controlled (HCC) Erectile dysfunction History of TIA (transient ischemic attack) HLD (hyperlipidemia) Hypertension Right knee pain Past Surgical History: Procedure Laterality Date CT ANGIOGRAM HEART CORONARY 02/02/2022 CT ANGIOGRAM HEART CORONARY 02/02/2022 family history includes Diabetes in his father and mother; Heart disease in his father and maternalgrandfather; Hypertension in his father and mother. OBJECTIVE: [...] Relevant Medications amoxicillin-clavulanate (Augmentin) 875-125 MG tablet * Sophie Delarosa NP - 04/12/2025 7:06 AM EDTAssociated Problem(s): Prediabetes Metformin therapy A1c 6.3% 04/12/25, 5.8% on 12/18/24 * Sophie Delarosa NP - 04/12/2025 7:06 AM EDTAssociated Problem(s): Hydrocele in adult Has seen urology, is to have surgery this week * Sophie Delarosa NP - 04/12/2025 7:05 AM EDTAssociated Problem(s): Hypertension Please check blood pressure daily and record DASH diet Limit caffeine Take medication as directed Contact office if chest pain, pressure, dizziness, shortness of breath, swelling legs Recommend slow position changes Current meds: metoprolol documented in this [facility]08-05-2025 Instructions* Patient Instructions* Sophie Delarosa NP - 04/12/2025 2:20 PM EDT Check blood work again in 4 weeks documented in this [facility]07-29-2025 NotePatient Education Urology Hydrocelectomy, Adult, Care After The [...] these instructions at home: Medicines ??? Take wmhd-hzv-xuwulwg and prescription medicines only as told by your health care provider. ??? Ask your health care provider if the medicine prescribed to you: ? Requires you to avoid driving or using machinery. ? Can cause constipation. You may need to take these actions to prevent or treat constipation: ? Drink enough fluid to keep your urine pale yellow. ? Take prqk-erw-zkoalpn or prescription medicines. ? Eat foods that [...] and water are not available, use hand warehousing technician. ? Change your dressing as told by your health care provider. ? Leave stitches (sutures), skin glue, or adhesive strips in place. These skin closures may need tostay in place for 2 weeks or longer. If adhesive strip edges start to loosen and curl up, you may trim the loose edges. Do not remove adhesive strips completely unless your health care provider tellsyou to do that. ??? Check your incision [...] swelling. ??? Do not (more content not included)...[facility]07-22-2025 NoteI reviewed the patient's echo and it appears to be normal. Therefore the patient can proceed with surgery from the cardiac point of view with necessary anesthesia. He is considered to be at low risk for perioperative cardiac events [facility]07-11-[facility] Reason for cardiology [...] medical history of Abnormal ECG, Diabetes mellitus ([facility]), Hyperlipidemia, Hypertension, and Stroke ([facility]). Surgical History He has no [...] enlargement, otherwise normal EKG Echo 11/01/2021 at [facility] Left Ventricle: Systolic function is normal with [...] ventricular systolic pressure. How (more content not included)...[facility]07-09-2025 Telephone encounter Note* Telephone Encounter - Sophie Delarosa NP - 03/16/2025 8:07 AM EDT Please contact pt, his EKG was abnormal that he had the other day, however I am wondering if the tracing is not entirely accurate. I would like to repeat an EKG to see if it was a fluke or not. When is his surgery scheduled for? NICKOLAS [facility] [id number] Miscellaneous Notes* Telephone Encounter - Sophie Delarosa NP - 03/16/2025 8:07 AM EDT Please contact pt, his EKG was abnormal that he had the other day, however I am wondering if the tracing is not entirely accurate. I would like to repeat an EKG to see if it was a fluke or not. When is his surgery scheduled for? NICKOLAS documented in this encounterThe Rehabilitation [id number] Hospital Discharge instructions Patient Education 03/07/2025 15:19:46 [...] Follow these instructions at home: Medicines Take oohi-gth-sadshmx and prescription medicines only as told by your health care provider. Ask your health care provider if the medicine prescribed to you: ?Requires you to avoid driving or using machinery. ?Can cause constipation. You may need to take these actions to prevent or treat constipation: ?Drink enough fluid to keep your urine pale yellow. ?Take cbin-vqc-hyacilv or prescription medicines. ?Eat foods that are high in fiber, such as beans, whole grains, and fresh fruits and vegetables. ?Limit foods that are high in fat and processed sugars, such as fried or sweet foods. Bathing Do not take baths, swim, or use a hot tub until your health care provider approves. Ask your healthcare provider if you may take showers. You may only be allowed to take sponge baths. If you were told to wear an athletic support strap (scrotal support), keep it dry. Take it off whenyou shower or bathe. Incision care Follow instructions from your health care provider about how to take care of your incision. Make sure you: ?Wash your hands with soap and water for at least 20 seconds before and after you change your bandage (dressing). If soap and water are not available, use hand warehousing technician. ?Change your dressing as told by your [...] your health care provider approves. Ask your healthcare provider if you may take showers. If [...] provider. Document Revised: 04/11/2022 Document Reviewed: 04/11/2022 [employer] Patient Education 2023 [employer]. 03/07/2025 15:19:45 Hydrocelectomy, Adult Hydrocelectomy, Adult A [...] including vitamins, herbs, eye drops, creams, and khfh-qis-uqhirwu medicines. Any problems you or family members [...] testicle or the tube that carries sperm outof the testicle (vas deferens). Infection. Allergic reactions [...] provider tells you to take them. Taking diyt-dwa-dmfnwol medicines, vitamins, herbs, and supplements. Surgery safety [...] for at least 4 weeks before the procedure.These products include cigarettes, chewing tobacco, and vaping [...] blood oxygen level will be monitored until youleave the hospital or clinic. You will be [...] provider. Document Revised: 04/11/2022 Document Reviewed: 04/11/2022 [employer] Patient Education 2023 [employer]. Follow Up Care 02/17/2025 12:41:43 With:BETO WEAVER, Drew Painting, URL Address: [facility] [address] , [place] [address]- [phone] When: Unknown Comments:westley Hays hydrocelectomy [facility] 06-30-2025 NotePatient Education Urology Hydrocelectomy, Adult, Care After The [...] these instructions at home: Medicines ??? Take rhdz-rnh-iabdmsx and prescription medicines only as told by your health care provider. ??? Ask your health care provider if the medicine prescribed to you: ? Requires you to avoid driving or using machinery. ? Can cause constipation. You may need to take these actions to prevent or treat constipation: ? Drink enough fluid to keep your urine pale yellow. ? Take hvlh-onz-wdmfuei or prescription medicines. ? Eat foods that [...] and water are not available, use hand warehousing technician. ? Change your dressing as told by your health care provider. ? Leave stitches (sutures), skin glue, or adhesive strips in place. These skin closures may need tostay in place for 2 weeks or longer. If adhesive strip edges start to loosen and curl up, you may trim the loose edges. Do not remove adhesive strips completely unless your health care provider tellsyou to do that. ??? Check your incision [...] swelling. ??? Do not (more content not included)...[facility]2025 Hospital Discharge instructions Patient Education 01/25/2025 15:21:18 Benign Prostatic Hyperplasia Benign Prostatic Hyperplasia Benign prostatic hyperplasia (BPH) is an enlarged prostate gland that is caused by the normal agingprocess. The prostate may get bigger as a man gets older. The condition is not caused by cancer. The prostate is a walnut-sized gland that is involved in the production of semen. It is located in front of the rectum and below the bladder. The bladder stores urine. The urethra carries stored urine ou t of the body. An enlarged prostate can press on the urethra. This can make it harder to pass urine. The buildup of urine in the bladder can cause infection. Back pressure and infection may progress to bladder damage and kidney (renal) failure. What are the causes? This condition is part of the normal aging process. However, not all men develop problems from thiscondition. If the prostate enlarges away from the [...] urethra. Follow these instructions at home: Take jawz-utd-jvyzazl and prescription medicines only as told by [...] provider. Document Revised: 03/13/2022 Document Reviewed: 03/13/2022 [email or web address] Patient Education 2023 [employer]. Follow Up Care 01/04/2025 15:06:55 With:BETO WEAVER, Drew Painting, URL Address: [facility] [address] , [place] [address]- When: Unknown [facility] 2025 NotePatient Education Urology Benign Prostatic Hyperplasia Benign prostatic hyperplasia (BPH) is an enlarged prostate gland that is caused by the normal agingprocess. The prostate may get bigger as a man gets older. The condition is not caused by cancer. The prostate is a walnut-sized gland that is involved in the production of semen. It is located in front of the rectum and below the bladder. The bladder stores urine. The urethra carries stored urine ou t of the body. An enlarged prostate can press on the urethra. This can make it harder to pass urine. The buildup of urine in the bladder can cause infection. Back pressure and infection may progress to bladder damage and kidney (renal) failure. What are the causes? This condition is part of the normal aging process. However, not all men develop problems from thiscondition. If the prostate enlarges away from the [...] this procedure, a tool is inserted through theopening at the tip of the penis (urethra). [...] procedure uses radio frequencies to destroy and removea small amount of prostate tissue. ? Interstitial laser coagulation (ILC). This procedure uses a laser to destroy and remove a small amount of prostate tissue. ? Transurethral electrovaporization (TUVP). This procedure uses electrodes to destroy and remove a small amount of prostate tissue. ? Prostatic urethral lift. This procedure inserts an implant to push the lobes of the prostate awayfrom the urethra. Follow these instructions at home: ??? Take fgdx-mgr-neseyoj and prescription medicines only as told by [...] symptoms do not get (more content not included)...[facility]04-28-2025 NoteUrology Office/Clinic Note Chief Complaint Re-referral for hydrocele HPI [...] large hydrocele scrotum, normal testes, normal urethra, normalepididymis, normal vas deferens/spermatic cord. Assessment/Plan Re-referred by [...] this time. -Cont monitoring 4. Anticoagulated (Z79.01: [facility] (current) use of anticoagulants) Plavix. [1] Follow-up With When Contact Information BETO WEAVER, Drew Painting, L [facility] [address], [place] [phone] [phone] Additional Instructions: sched cysto Patient Education Cystoscopy Benign Prostatic Hyperplasia I, Sherry Fitzpatrick, personally scribed for Dr. Pérez on 01/03/2025 13:52:57. . Documentation recorded by the Sherry rucker, accurately reflects the services(s) I performed and decisions made by me. Authenticated by Dr. Pérez on 01/03/2025 13:56:13. Problem List/Past Medical History Ongoing Anticoagulated Arthritis BPH with urinary obstruction Diabetes ED (erectile dysfunction) Feeling of incomplete bladder emptying History of kidney stones Hydrocele Hyperlipidemia Hypertension Prostate cancer screening TIA (transient ischemic attack) Historical No qualifying data Procedure/Surgical Hist (more content not included)...[facility]Result Comment: Electronically Signed By: Drew PÉREZ MD\.br\Date and Time Signed: 01/03/25 13:56 EDT\.br\Electronically Co- Signed By: Sherry Fitzpatrick\.br\Date and Time Co-Signed: 01/03/25 13:53 EDT 01-03-2025 NotePatient Education Urology Cystoscopy Cystoscopy is a procedure [...] including vitamins, herbs, eye drops, creams, and ckpb-sqv-gfygxcn medicines. ??? Any problems you or family [...] tells you to take them. ??? Taking tvpd-djv-kbbqolv medicines, vitamins, herbs, and supplements. Tests You [...] cystoscope to fill your bladder. The fluid willstretch your bladder so that your health care [...] these instructions at home: Medicines ??? Take zdxw-xch-jahwxjy and prescription medicines only as told by your health care provider. ??? If you were prescribed an antibiotic medicine, take it as told by your health care provider. Donot stop taking the antibiotic even if you [...] testing (biopsy) during your (more content not included)...[facility]04-07-2025 History of Present illness Narrative* Sophie Delarosa NP - 12/13/2024 10:37 AM EDTAssociated Problem(s): MAR (obstructive sleep apnea) You have [...] etc:Mandy Doctor that manages your MAR: Addie * Sophie Delarosa NP - 12/13/2024 10:30 AM EDTAssociated Problem(s): Swelling of left half of scrotum Suspected inguinal hernia with hydrocele Check US [facility] * YVAN ROBERTS - 12/13/2024 10:00 AM EDT Pt states that it started swelling a few months ago however in the last couple weeks the left testicle has swollen even more. Pt states that he is not uncomfortable or painful. Pt states that the testicle is not discolored either. * Sophie Delarosa NP - 12/13/2024 10:00 AM EDT Images from the original note [...] is unchanged. The problem is controlled. Pertinent negativesinclude no peripheral edema. There are no associated agents to hypertension. Risk factors for coronary artery disease include diabetes mellitus, dyslipidemia and male gender. Past treatments include beta blockers. The current treatment provides significant improvement. There are no compliance problems. There is no history of kidney disease, CAD/TX or heart failure. Diabetes He presents for [...] and hypertension. Current diabetic treatment includes oral agent(monotherapy). An JOE inhibitor/angiotensin II receptor karolyn is not being taken. 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 SUBJECTIVE: MEDICATIONS: Current Outpatient [...] Date Arthritis BPH with urinary obstruction Diabetes ([facility]) DM II (diabetes mellitus, type II), controlled ([facility]) Erectile dysfunction History of TIA (transient ischemic attack) HLD (hyperlipidemia) ([facility]) Hypertension ([facility]) Right knee pain Past Surgical History: Procedure Laterality Date CT ANGIOGRAM HEART CORONARY 02/02/2022 CT ANGIOGRAM HEART CORONARY 02/02/2022 family history includes Diabetes in his father and mother; Heart disease in his father and maternalgrandfather; Hypertension in his father and mother. OBJECTIVE: [...] (erectile dysfunction) Currently taking cialis daily Hyperlipidemia ([facility]) On statin therapy Check labs yearly and prn dose changes Relevant Orders Comprehensive metabolic panel Lipid panel Hypertension ([facility]) Please check blood pressure daily and record [...] etc:Mandy Doctor that manages your MAR: Addie * Sophie Delarosa NP - 12/13/2024 6:35 AM EDTAssociated Problem(s): Hyperlipidemia (CMS/HCC) On statin therapy Check labs yearly and prn dose changes * Sophie Delarosa NP - 12/13/2024 6:34 AM EDTAssociated Problem(s): Iron deficiency anemia Taking ferrous sulfate 325mg daily Check labs * Sophie Delarosa NP - 12/13/2024 6:33 AM EDTAssociated Problem(s): Prediabetes Metformin therapy Check A1c test * Sophie Delarosa NP - 12/13/2024 6:33 AM EDTAssociated Problem(s): ED (erectile dysfunction) Currently taking cialis daily * Sophie Delarosa NP - 12/13/2024 6:33 AM EDTAssociated Problem(s): BPH with urinary obstruction Current medication: tamsulosin * Sophie Delarosa NP - 12/13/2024 6:32 AM EDTAssociated Problem(s): Hypertension (CMS/HCC) Please check blood pressure daily and record DASH diet Limit caffeine Take medication as directed Contact office if chest pain, pressure, dizziness, shortness of breath, swelling legs Recommend slow position changes Current meds: metoprolol documented in this encounterThe Rehabilitation [id number] Instructions* Patient Instructions* Sophie Delarosa NP - 12/13/2024 10:00 AM EDT Labs are due: fasting 8 hours US scrotum: I will order US at [facility], ,ext [id number] documented in this encounterThe Rehabilitation [id number] History of Present illness Narrative* Zoraida Chavez NP - 08/24/2024 3:41 PM ESTAssociated Problem(s): Hypertension (CMS/HCC) Currently taking Metoprolol Does not check BP at home; BP is at goal today in the office Denies orthostatic changes, dizziness, cough, shortness of breath, swelling in extremities. Continue current regimen. Given BP log, advised pt to record BP and bring log back with them to next visit. * Zoraida Chavez NP - 08/24/2024 3:41 PM ESTAssociated Problem(s): Hyperlipidemia (CMS/HCC) Currently taking Atorvastatin 20mg Denies any myalgias. Continue current regimen. * Zoraida Chavez NP - 08/24/2024 3:40 PM ESTAssociated Problem(s): Prediabetes Currently taking Metformin 500mg Denies any adverse reactions or side effects. Most recent A1C Continue current regimen. * Zoraida Chavez NP - 08/24/2024 3:30 PM EST Subjective Patient ID: Marti Morgan is a [...] Neurological: Negative for dizziness, tremors, syncope, weakness, light- headedness and headaches. Psychiatric/Behavioral: Negative for decreased concentration and suicidal ideas. The patient is notnervous/anxious. Hematological: Does not bruise/bleed easily. Endocrine: Negative [...] (Mobic) 15 MG tablet documented in this [facility]12-05-2024 Telephone encounter Note* Telephone Encounter - Clarissa Calderon - 08/12/2024 10:49 AM EST Patient is asking if his meloxicam can be a 90 day supply like all his other medications. I did putin for a refill of the low dose aspirin. SON [facility] [id number] Miscellaneous Notes* Telephone Encounter - Clarissa Calderon - 08/12/2024 10:49 AM EST Patient is asking if his meloxicam can be a 90 day supply like all his other medications. I did putin for a refill of the low dose aspirin. SON documented in this [facility]12-03-2024 Telephone encounter Note* Telephone Encounter - Christi Bond MA - 08/10/2024 9:45 AM EST MANDO: NOV:09/03/2024 [facility] [id number] Miscellaneous Notes* Telephone Encounter - Christi Bond MA - 08/10/2024 9:45 AM EST MANDO: NOV:09/03/2024 documented in this [facility]11-06-2024 Telephone encounter Note* Telephone Encounter - Christi Bond MA - 07/14/2024 5:22 PM EST Mando:02/25/2024 NOV:08/23/2024 [facility] [id number] Miscellaneous Notes* Telephone Encounter - Christi Bond MA - 07/14/2024 5:22 PM EST Mando:02/25/2024 NOV:08/23/2024 documented in this encounterThe Rehabilitation [id number] History of Present illness Narrative* Barbara Messer NP - 06/23/2024 8:00 AM EDTAssociated Order(s): L Inj/Asp: L knee Post-Procedure Diagnose(s): Arthritis of left knee Subjective Patient ID: Marti Morgan is a 69 y.o. male. LT Knee last Depo Medrol injection (03/29/24) with 90 % improvement, he notes in the past 1-2 weeks the painhas come back. Denies new injury. Pain has [...] f/u in 2 months documented in this encounterThe Rehabilitation [id number] Hospital Discharge instructions Patient Education 2023 11:29:04 Benign Prostatic Hyperplasia Benign Prostatic Hyperplasia Benign prostatic hyperplasia (BPH) is an enlarged prostate gland that is caused by the normal agingprocess. The prostate may get bigger as a man gets older. The condition is not caused by cancer. The prostate is a walnut-sized gland that is involved in the production of semen. It is located in front of the rectum and below the bladder. The bladder stores urine. The urethra carries stored urine ou t of the body. An enlarged prostate can press on the urethra. This can make it harder to pass urine. The buildup of urine in the bladder can cause infection. Back pressure and infection may progress to bladder damage and kidney (renal) failure. What are the causes? This condition is part of the normal aging process. However, not all men develop problems from thiscondition. If the prostate enlarges away from the [...] urethra. Follow these instructions at home: Take acol-ses-yjcrwyy and prescription medicines only as told by [...] provider. Document Revised: 03/13/2022 Document Reviewed: 03/13/2022 [employer] Patient Education 2022 [employer]. Follow Up Care 03/05/2023 09:34:37 With:CLARISSA SIERRA PA-C, URL Address: [address] [address] When: Unknown Comments:Sched Cysto/TRUS w/KML [facility] Plan note No data available for this section [facility] evalnnpxnz + Plan note Future Appointments Appointment Date:08/08/2025 10:30:00 AM Scheduled Provider:Drew PÉREZ MD Location:[facility] Appointment Type:URO Office Visit [facility] Evaluation + Plan note Future Appointments Appointment Date:04/11/2025 02:30:00 PM Scheduled Provider:[facility] Office Visit Appointment Date:08/08/2025 10:30:00 AM Scheduled Provider:Drew PÉREZ MD Location:[facility] Appointment Type:URO Office Visit [facility] evaluation + Plan note Future Appointments Appointment Date:08/08/2025 10:30:00 AM Scheduled Provider:Drew P[facility]REZ [facility] Office Visit Appointment Date:11/11/2025 08:30:00 AM Scheduled Provider:Drew PÉREZ MD [facility] Visit [facility] evaluation noteNo assessment information available [facility] Work Phone: Evaluation note* Diagnosis Primary hypertension (CMS/HCC)- Primary Unspecified [...] of iron metabolism documented in this encounter [facility] HealthcareEvaluation note* Diagnosis Primary [...] of left knee documented in this encounter [facility] HealthcareEvaluation note* Diagnosis Primary [...] of left knee documented in this encounter [facility]* Diagnosis Primary hypertension (CMS/HCC)- Primary [...] Unspecified essential hypertension documented in this encounter [facility]Evaluation [facility]* Diagnosis Primary hypertension (CMS/HCC)- Primary [...] Other chronic pain documented in this encounter [facility]* Diagnosis Primary hypertension (CMS/HCC)- Primary [...] hyperlipidemia type (CMS/HCC) documented in this encounter [facility] HealthcareEvaluation note* Diagnosis Primary [...] Other chronic pain documented in this encounter [facility] HealthcareEvaluation note* Diagnosis Primary [...] transient cerebral ischemia documented in this encounter [facility] HealthcareEvaluation note* Diagnosis Primary [...] nasopharyngitis (common cold) documented in this encounter [facility] HealthcareEvaluation note* Diagnosis Primary [...] Unspecified essential hypertension documented in this encounter [facility] HealthcareEvaluation note* Diagnosis Primary [...] Other abnormal glucose documented in this encounter [facility] HealthcareEvaluation note* Diagnosis Anemia, unspecified documented in this encounter [facility] SystemEvaluation [facility]* Diagnosis Primary hypertension (CMS/HCC)- Primary [...] apnea (adult) (pediatric) documented in this encounter [facility] HealthcareEvaluation note* Diagnosis Primary [...] half of scrotum documented in this encounter [facility] HealthcareEvaluation note* Diagnosis Primary hypertension (CMS/HCC)- [...] nasopharyngitis (common cold) documented in this encounter [facility] HealthcareEvaluation note* Diagnosis Primary [...] Unspecified essential hypertension documented in this encounter [facility] HealthcareEvaluation note* Diagnosis Primary [...] unspecified hyperlipidemia type documented in this encounter [facility] HealthcareEvaluation note* Diagnosis Primary [...] Other abnormal glucose documented in this encounter [facility]* Diagnosis Primary hypertension- Primary Unspecified [...] tract symptoms (LUTS) documented in this encounter [facility] HealthcareEvaluation note* Diagnosis Primary [...] Other chronic pain documented in this encounter [facility] HealthcareEvaluation note* Diagnosis Primary hypertension- Primary [...] electrocardiogram (ECG) (EKG) documented in this encounter [facility] HealthcareEvaluation note* Diagnosis Primary [...] of iron metabolism documented in this encounter [facility] HealthcareEvaluation note* Diagnosis Primary [...] maxillary sinusitis Lymphocytopenia documented in this encounter [facility] HealthcareEvaluation note* Diagnosis Primary [...] nasopharyngitis (common cold) documented in this encounter [facility] HealthcareEvaluation note* Diagnosis Primary [...] of iron metabolism documented in this encounter [facility] HealthcareHospital Discharge instructions Additional [...] years. -Follow up with PCP. -Office number [phone]. [facility] Work Phone: InstructionsNot on filedocumented in this encounter [facility] SystemProgress note No data available for this section [facility] reason for referral (narrative)No reason for referral information availableRegency Hospital [facility] Work Phone: Summary Purpose Family History No Family History Records Found Relationship Condition Age at Onset Recorded Date/T xenia Not Specified Diabetes mellitus Unknown HypertensionUnknownfatherDiabetes mellitusUnknownHeart diseaseUnknownNot SpecifiedHeart diseaseUnknownMyocardial infarctionUnknown Relationship Condition Age at Onset Recorded Date/T xenia mother Diabetes mellitus Unknown HypertensionUnknownfatherDiabetes mellitusUnknownHeart diseaseUnknownmaternal grandfatherHeart diseaseUnknownMyocardial infarctionUnknownpaternal grandfather Heart diseaseUnknownDeceasedUnknownmotherAsthmaUnknownDiabetes mellitusUnknown Advance Directives No Advanced Directives Records Found [...] section and content) DATE CREATED AUTHOR 06/30/2022 [facility] DATE CREATED AUTHOR AUTHOR'S ORGANIZ ATION 12/14/2024 [facility] EPIC DATE CREATED AUTHOR AUTHOR'S ORGANIZ ATION 04/19/2025 [facility] DATE CREATED AUTHOR AUTHOR'S ORGANIZ ATION 05/15/2025 [facility] DATE CREATED AUTHOR AUTHOR'S ORGANIZ ATION 06/21/2025 [facility] Patient Care team informatio n (unrecognized section and content) Team Status: Active Member Role Status Dates ANASTACIO Parekh Primary Care Provider Active Team Status: Inactive Member Role Status Dates Drew Pérez MD Attending Provider Active St art: April 14, 2025 End: April 14, 2025 Team Status: Active Member Role Status Dates Clinton Marr DO Attending Provider Active S tart: June 03, 2025 Team Status: Inactive Member Role Status Dates ANASTACIO Parekh Primary Care Provider Active Start: June 07, 2025 End: June 07, 2025PA ParekhCAttending ProviderActiveStart: June 07, 2025 End: June 07, 2025 Team Status: Active Member Role Status Dates Shaikh Breanna MD Primary Care Provider Active Team Status: Active Member Role Status Dates Mora Godoy MD Attending Provider, Other Provider Active Start: October 09, 2023 Shaikh С[facility]tequila [facility] ProviderActiveStart: October 09, 2023 Team MemberRelationshipSpecialtyStart DateEnd Date Shen Perez MD [address] [place] [address] PCP - GeneralFamily Medicine06/02/24 Zoraida Chavez NP [address] [place] [address] [facility]06/02/24Team MemberRelationshipSpecialtyStart DateEnd Date Shen Perez MD [address] [place] [address] PCP - GeneralFamily Medicine06/02/24 Zoraida Chavez NP [address] [place] [address] Nurse Pract[facility]06/02/24Team MemberRelationshipSpecialtyStart DateEnd Date Shen Perez MD [address] [place] [address] PCP - GeneralFamily Medicine06/02/24 Zoraida Chavez NP [address] [place] [address] [facility]06/02/24Team MemberRelationshipSpecialtyStart DateEnd Date Shen Perez MD [address] [place] [address] PCP - GeneralFamily Medicine06/02/24 Zoraida Chavez NP [address] [place] [address] Nurse Pract[facility]Aust[facility]06/02/24Team MemberRelationshipSpecialtyStart DateEnd Date Shen Perez MD [address] [place] [address] PCP - [facility]Em[facility]06/02/24 Zoraida Chavez NP [address] [place] [address] [facility]06/02/24Team MemberRelationshipSpecialtyStart DateEnd Date Shen Perez MD [address] [place] [address] PCP - Generalmily Medicine06/02/24 Zoraida Chavez NP [address] [place] [address] Nurse [facility]Aust[facility]06/02/24Team MemberRelationshipSpecialtyStart DateEnd Date Shen Perez MD [address] [place] [address] PCP - Generalmily Medicine06/02/24 Zoraida Chavez NP [address] [place] [address] Nurse Practitionermily Medicine06/02/24Team MemberRelationshipSpecialtyStart DateEnd Date Shen Perez MD [address] [place] [address] PCP - GeneralFamily Medicine06/02/24 Zoraida Chavez NP [address] [place] [address] [facility]erVan [facility]06/02/24Team MemberRelationshipSpecialtyStart DateEnd Date Shen Perez MD [address] [place] [address] PCP - GeneralFamily Medicine06/02/24 Zoraida Chavez, DAYNE [address] [place] [address] Nurse Pract[facility]erVan [facility] Center[facility] Medicine06/02/24Team MemberRelationshipSpecialtyStart DateEnd Date Shaikh Carlos MD [address] [place] [address] PCP - GeneralInternal Medicine02/27/23Team MemberRelationshipSpecialtyStart Date End Date Shen Perez MD [address] [place] [address] PCP - GeneralFamily Medicine06/02/24 Zoraida Chavez NP [address] [place] [address] Nurse Practitionermily Medicine06/02/24Team MemberRelationshipSpecialtyStart DateEnd Date Shen Perez MD [address] [place] [address] PCP - Generalmily Medicine06/02/24 Zoraida Chavez NP [address] [place] [address] Nurse Pract[facility]06/02/24Team MemberRelationshipSpecialtyStart DateEnd Date Shen Perez MD [address] [place] [address] PCP - Generalmily [facility]06/02/24 Zoraida Chavez NP [address] [place] [address] Nurse Pract[facility]erEm[facility]06/02/24Team MemberRelationshipSpecialtyStart DateEnd Date Shen Perez MD [address] [place] [address] PCP - Generalmi Medicine06/02/24 Zoraida Chavez NP [address] [place] [address] Nurse Pract[facility]Aust[facility]06/02/24Team MemberRelationshipSpecialtyStart DateEnd Date Shen Perez MD [address] [place] [address] PCP - GeneralFamily Medicine06/02/24 Zoraida Chavez NP [address] [place] [address] Nurse Practitionermily Medicine06/02/24Team MemberRelationshipSpecialtyStart DateEnd Date Shen Perez MD [address] [place] [address] PCP - Generalmily Medicine06/02/24 Zoraida Chavez NP [address] [place] [address] [facility]06/02/24Team MemberRelationshipSpecialtyStart DateEnd Date Shen Perez MD [address] [place] [address] PCP - Generalmily Medicine06/02/24 Zoraida Chavez NP [address] [place] [address] Nurse Pract[facility]Aust[facility] Medicine06/02/24Team MemberRelationshipSpecialtyStart DateEnd Date Shen Perez MD [address] [place] [address] PCP - GeneralFamily Medicine06/02/24 Zoraida Chavez NP [address] [place] [address] Nurse Pract[facility]erAust[facility] Medicine06/02/24Team MemberRelationshipSpecialtyStart DateEnd Date Shen Perez MD [address] [place] [address] PCP - GeneralFamily Medicine06/02/24 Zoraida Chavez NP [address] [place] [address] Nurse PractitionerFamily Medicine06/02/24Team MemberRelationshipSpecialtyStart DateEnd Date Shen Perez MD [address] [place] [address] PCP - GeneralFamily Medicine06/02/24 Zoraida Chavez NP [address] [place] [address] Nurse PractitionerFamily Medicine06/02/24Team MemberRelationshipSpecialtyStart DateEnd Date Shen Perez MD [address] [place] [address] PCP - GeneralFamily Medicine06/02/24 Zoraida Chavez NP [address] [place] [address] Nurse PractitionerFamily Medicine06/02/24Team MemberRelationshipSpecialtyStart DateEnd Date Shen Perez MD [address] [place] [address] PCP - GeneralFamily Medicine06/02/24 Zoraida Chavez NP [address] [place] [address] Nurse PractitionerFamily Medicine06/02/24Team MemberRelationshipSpecialtyStart DateEnd Date Shen Perez MD [address] [place] [address] PCP - [facility]Em[facility]06/02/24 Zoraida Chavez NP [address] [place] [address] Nurse PractitionerEm[facility]06/02/24Team MemberRelationshipSpecialtyStart DateEnd Date Shen Perez MD [address] [place] [address] PCP - [facility]06/02/24 Zoraida Chavez NP [address] [place] [address] Nurse Pract[facility]erEm[facility]06/02/24Team MemberRelationshipSpecialtyStart DateEnd Date Shen Perez MD [address] [place] [address] PCP - [facility]Em[facility]06/02/24 Zoraida Chavez NP [address] [place] [address] Nurse PractitionerEm[facility]06/02/24 Goals (unrecognized section and content) Goals may be documented in a n alternate section Reason for Visit (unrecogniz ed section and content) ReasonOnset DateCommentsMed [id number] RefillReasonOnset DateCommentsMed [id number] DateCommentsMed Kexzfg2108/10/2024 ReasonOnset DateCommentsMed [id number] DateCommentsMed Refill 4ReasonOnset DateCommentsMed Uggoir6001/03/2025ReasonOnset DateComments Med Amjwor03ReasonOnset DateCommentsMed Uvujzn96ReasonOnset Date CommentsMed Fbyqef8102/25/2025ReasonOnset DateCommentsMed Jasrcl4004/04/2025Re CommentsDiabetes FOR RECORDS PERTAINING TO PATIENTS WHO ARE [...] BE BASED ON THE PRIMARY CLINICAL RECORDS. [facility] [email or web address] provides no warranty or guarantee of the accuracy or completeness of information in this document.
[2025-07-05 08:30] LABS: Alanine Aminotransferase 34 U/L (16-63); Aspartate Amino Transferase 11 U/L (15-37); Cholesterol 183 mg/dL (<=200); HDL Cholesterol 53 mg/dL (40-60); Triglycerides 79 mg/dL (<=150); VLDL CHOLESTEROL 15.8 mg/dL
== END 2025-07-05 07:29 | disposition home or self-care (01) ==
LOC: LAB 07:33
PROVIDERS: PCP Nurse Practitioner; Visit Provider Nurse Practitioner
DX: E78.00 Pure hypercholesterolemia, unspecified (principal)
CPT/HCPCS: 36415; 80061; 84450; 84460

== ENCOUNTER 2025-08-25 07:31 | Outpatient (OUT) | payer OTHER, SELFPAY ==
--- OUTSIDE RECORDS SUMMARY | 2025-08-15 09:02 | XMS_ITS | Continuity of Care Document ---
Author Organization [facility] Address [address] [place] [address] Phone Care Team Providers Care Superintendent Plant Name Role Phone Clinton Marr DO Attending Provider [phone] Sophie Delarosa [employer]C Primary Care Provider Sophie Delarosa [employer]-C Attending Provider Care Teams Patient Care Team Team Status: Active Member Role/Relationship Status Dates Sophie Delarosa [employer]-C Primary Care Provider Active Visit Care Team Team Status: Active Member Role/Relationship Status Dates Clinton Marr DO Attending Provider Active S tart: June 03, 2025 Visit Care Team Team Status: Inactive Member Role/Relationship Status Dates Sophie Delarosa [employer]-C Primary Care Provider Active Start: June 07, 2025 End: June 07, 2025Sophie Delarosa NP-CAttending ProviderActiveStart: June 07, 2025 End: June 07, 2025 Visit Care Team Team Status: Active Member Role/Relationship Status Dates Sophie Delarosa [employer]-C Primary Care Provider Active Start: June 10, 2025 Sophie Delarosa NP-CAttending ProviderActiveStart: June 10, 2025 Visit Care Team Team Status: Active Member Role/Relationship Status Dates Sophie Delarosa [employer]C Primary Care Provider Active Start: June 16, 2025 Sophie Delarosa NP-CAttending ProviderActiveStart: June 16, 2025 Visit Care Team Team Status: Active Member Role/Relationship Status Dates Sophie Delarosa [employer]-C Primary Care Provider Active Start: July 05, 2025 Sophie Delarosa [employer] OFFICER-CAttending ProviderActiveStart: July 05, 2025 Visit Care Team Team Status: Inactive Member Role/Relationship Status Dates Sophie Delarosa [employer]-C Primary Care Provider Active Start: July 14, 2025 End: July 14, 2025Sophie Delarosa [employer] OFF[employer]ER-CAttending ProviderActiveStart: July 14, 2025 End: July 14, 2025 Patient Care Team Team Status: Inactive Member Role/Relationship Status Dates Sophie Delarosa [employer]-C Primary Care Provider Active Start: August 15, 2025 End: August 15, 2025Sophie Delarosa [employer] OFF[employer]ER-CAttending ProviderActiveStart: August 15, 2025 End: August 15, 2025 Chief Complaint and Reason for Visit Chief Complaint Admit Date Hospital Followup June 07, 2025 11:09am 3M July 14, 2025 1 :26pm 1M August 15, 2025 1 :13pm Reason for Visit Admit Date Chest pain June 07, 2025 11:09am Essential hypertension June 07 11:09am HERIBERTO (generalized anxiety disorder) [facility] 2024 11:09am MAR (obstructive sleep apnea) June 07, 2025 11:09am Prediabetes June 07, 2025 11:09am Chest pain July 14, 2025 1 :26pm Essential hypertension July 14 1:26pm HERIBERTO (generalized anxiety disorder) Novem 2024 1:26pm MAR (obstructive sleep apnea) July 142024 1:26pm Prediabetes July 14, 2025 1 :26pm Chest pain August 15, 2025 1 :13pm Essential hypertension August 15 1:13pm HERIBERTO (generalized anxiety disorder) Decem bon 2024 1:13pm Morbid obesity due to excess calories De cember 2024 1:13pm Olecranon bursitis of right elbow Decemb er 2024 1:13pm MAR (obstructive sleep apnea) August 152024 1:13pm Prediabetes August 15, 2025 1 :13pm Allergies, Adverse Reactions, Alerts Allergen Type Severity Reaction Last Updated Verified Status No Known Allergies Allergy Unknown October 09, 2023 9:30amYesActive Social History Smoking Status Status Start Date End Date Date of Observa tion Never smoked tobacco (finding) October 09, 2023 9:22am Observation Status Observation Response Date of Response Legal Sex Male (finding) Sex Assigned At BirthMaleSeptember 1954 Family History Relationship Condition Age at Onset Recorded Date/T xenia mother Diabetes mellitus Unknown HypertensionUnknownfatherDiabetes mellitusUnknownHeart diseaseUnknown HypertensionUnknownmaternal grandfatherHeart diseaseUnknownHypertensionUnknown Myocardial infarctionUnknownpaternal grandfatherHeart diseaseUnknownHypertension UnknownfatherDiabetes mellitusUnknownDeceasedUnknownHeart diseaseUnknownmother AsthmaUnknownHeart diseaseUnknownDiabetes mellitusUnknownDeceasedUnknown Problems Active Problems Problem Diagnosis/Recorded Date Onset Date Stat us Swelling of left half of scrotum June 07, 2025 7:26am Unknown Active 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 June 07, 2025 7:26am Unknown Active MAR (obstructive sleep apnea) June 07, 2025 7:2 6am Unknown Active HERIBERTO (generalized anxiety disorder) June 07 11:51am Unknown Active Chronic pain of left knee June 07, 2025 7:24am Unknown Active Screening for prostate cancer June 07, 2025 7:2 5am Unknown Active Colon cancer screening June 07, 2025 7:22am Unk nown Active Olecranon bursitis of right elbow August 15, 2025 1 :56pm Unknown Active Feeling of incomplete bladder emptying June 07, 2025 7:26am Unknown Active Acute rhinitis June 07, 2025 7:25am Unknown Active Erectile dysfunction May 30, 2025 12:10pm Unkn own Active BPH with urinary obstruction June 07, 2025 7:14 am Unknown Active Wellness examination June 07, 2025 7:24am Unkno wn Active Hyperlipidemia June 07, 2025 7:14am Unknown Active Tinea pedis of both feet June 07, 2025 11:09am Unknown Active Essential hypertension June 07, 2025 11:43am Un known Active Hydrocele in adult June 07, 2025 7:26am Unknown Active Morbid obesity due to excess calories August 15 1:49pm Unknown Active CORDELL (iron deficiency anemia) June 07, 2025 7:24 am Unknown Active Acute non-recurrent maxillar y sinusitis June 07, 2025 7:27am Unknown Active Abnormal EKG June 07, 2025 7:26am Unknown Active Prediabetes June 07, 2025 7:15am Unknown Active Chronic left shoulder pain June 07, 2025 7:25am Unknown Active Chest pain June 07, 2025 11:42am Unknown Active Lymphocytopenia June 07, 2025 7:27am Unknown Active Medications Medication Status Dose Units Route Directions Qty Days Refills S tart Date Stop Date End Date Reason(s) Instructions Adherence Tadalafil 10 mg tablet Active 10 MG PO As Directed as needed for sexual activity eptember 2024 12:10pmErectile dysfunction Male erectile dysfunction, unspecifiedComplies with drug therapyMetoprolol Succinate 50 mg tablet extended release 24 tiLcjgtc20QQJHUgpdz6161Vanbnlbd 2024 1:12pmPrimary hypertension Essential (primary) hypertensionComplies with drug therapyMetformin 500 mg cresfoTgmvca089DTWQAznta dailyFebruary 2023 12:00amComplies with drug therapyAtorvastatin 20 mg myztdyDgzxdk86JAXHCxawgKcrmedwl 2023 12:00am Complies with drug therapyMetoprolol Succinate 50 mg tablet extended release 24 zkSgabsnbansgl56QQWZDnqhyHeznnqox 2023 12:00amSeptember 2024 11:43am Meloxicam 15 mg ojythqVmovzh12YZUIEavojIgzlmtil 2023 12:00amComplies with drug therapyClopidogrel 75 mg xxtbspCfxzllamshft86PKYHAweagRrnvizmz 2023 12:00amFebruary 2023 9:29amAspirin 81 mg tablet,delayed release (DR/EC) Jodkwc67KJTQKbdzzYlupssmh 2023 12:00amComplies with drug therapyTamsulosin 0.4 mg capsuleActive0.4MGPOTwice dailyFebruary 2023 12:00amComplies with drug therapyFerrous Sulfate 325 mg (65 mg iron) iyxoveSpuwrt346RNTFZgxatMdwlobku 2023 12:00amComplies with drug therapyTadalafil 10 mg evibrbXtabeirlbcne92 MGPOAs Directed as needed for sexual activityFebruary 2023 12:00amSeptember 2024 12:11pmBuspirone 10 mg ekpuifYezhsnetwfep61DYMVDbxde dailyNov2024 12:00amNovemb2024 2:39pmBuspirone 10 mg mldebuXkbqobsgtpmq07IR POTwice zcgus599Qommukbf2024 2:38pmDecemb2024 1:48pmGeneralized anxiety disorder Generalized anxiety disorderSertraline 50 mg wivgtaUhygpz91GXIARnckr928Atxcqpzb 6th, 2025 12:00amGeneralized anxiety disorder Generalized anxiety disorderComplies with drug therapyMetoprolol Succinate 50 mg tablet extended release 24 xmCmiukfprlhzv47YPAQHuldr2040Yotmjhwy 6th, 2025 4:18pmDece2024 1:12pmPrimary hypertension Essential (primary) hypertensionKetoconazole 2 % guqiiGlmhrbwusbuv6LBOCMQHWFNIMM Kqpgj049Iutijgarc 29th, 2025 11:00pmSept2024 11:10amTinea pedis of both feet Tinea pedisonce a day for 4 weeksMetoprolol Succinate 50 mg tablet extended release 24 elTekkkzxdcomw26GVINRtncm6298Cozkddwhc 30th, 2025 11:42amNovemb2024 4:19pmPrimary hypertension Essential (primary) hypertensionBuspirone 5 mg dywuvnLhdrldifvzxs2QTZPQfgzr znvgv806Toffdmpaj 29th, 2025 11:00pmNov2024 2:37pmGeneralized anxiety disorder Generalized anxiety disorderBuspirone 10 mg vegtogKyxqto82IIWDNofwt August 15, 2025 1:47pmGeneralized anxiety disorder Generalized anxiety disorderComplies with drug therapy Relevant Diagnostic Tests and/or Laboratory Data Laboratory Results Test Collection Date/Time Result Date/Time Result Interpretation Reference Range Result Comment Performing Site Basophils # (Auto) June 03, 2025 2:50pm June 03, 2025 2:50pm 0.1 10 3/uL 0.0-0.1Anion GapSept2024 2:50pmSept2024 2:50pm9.7 Troponin I High SensitivitySept2024 3:59pmSept2024 3:59pm8.0 pg/mL4.0-76.1CUT-OFF POINTS HAVE BEEN ESTABLISHED BASED ON THE FOURTHUNIVERSAL DEFINITION OF MYOCARDIAL INFARCTION. THE UPPERREFERENCE LIMIT (URL) OF TROPONIN, DEFINED THE 99THPERCENTILE OF cTnI DISTRIBUTION IN A REFERENCE POPULATION,HAS BEEN CONFIRMED THE DECISION THRESHOLD FOR MIDIAGNOSIS.99TH PERCENTILE = 76.2 PG/MLNOTE: HIGH-SENSITIVITY TROPONIN ASSAY IS NOT INTENDED TO BEUSED IN ISOLATION BUT SHOULD BE INTERPRETED IN CONJUNCTIONWITH OTHER DIAGNOSTIC AND CLINICAL INFORMATION.Basophils # (Auto)June 10, 2025 1:37pmOct2024 1:37pm0.1 10 3/uL0.0-0.1TransferrinOct2024 12:05pmOctober 2024 12:52ad645 mg/aA274-727Wdhtgjjpb at: [facility] [id number] Director: Leland Cordova PhD, Phone: [phone] 9th, 2025 12:05pmOctober 2024 12:05pm50.0 ng/mL26.0-388.0Iron SaturationJune 16, 2025 12:05pmOctober 2024 12:05pm 29.2 %Cholesterol/HDL RatioOct2024 6:42amOct2024 6:42am3.5 3.3 - 4.4 LOW RISK4.4 - 7.1 AVERAGE RISK7.1 - 11.0 MODERATE RISK>11.0 HIGH RISK Alanine Aminotransferase (ALT/SGPT)July 05, 2025 6:42amOctober 2024 6:42am34 U/U76-89Scfgeekec Amino Transf (AST/SGOT)July 05, 2025 6:42am July 05, 2025 6:42am11 U/LBelow low oexupy34-20Pbsuvqvfg (%) (Auto) June 03, 2025 2:50pmSeptember 2024 2:50pm0.8 %0.2-2.0BUN/Creatinine RatioSept2024 2:50pmSeptember 2024 2:50pm28.9Basophils (%) (Auto)June 10, 2025 1:37pmOctober 2024 1:37pm0.8 %0.2-2.0Iron Level June 16, 2025 12:05pmOctober 2024 12:15ln180.0 ug/dL65.0-175.0 Cholesterol LevelOct2024 6:42amOctober 2024 6:31sk003 mg/dL <=200Eosinophils # (Auto)June 03, 2025 2:50pmSept2024 2:50pm 0.3 10 3/uL0.0-0.7Blood Urea NitrogenSept2024 2:50pmSeptember 2024 2:50pm24.0 mg/dLAbove high normal7.0-18.0Eosinophils # (Auto)June 10, 2025 1:37pmOctober 2024 1:37pm0.4 10 3/uL0.0-0.7Total Iron Binding Capacity June 16, 2025 12:05pmOctober 2024 12:85zt606.0 ug/dL250.0-450.0HDL CholesterolOct2024 6:42amOctober 2024 6:42am53 mg/dL40-60> or =60 mg/dl - LOW CARDIOVASCULAR RISK<40 mg/dl - HIGH CARDIOVASCULAR RISK Eosinophils (%) (Auto)June 03, 2025 2:50pmSept2024 2:50pm2.7 %0.9-7.0Calcium LevelSept2024 2:50pmSeptember 2024 2:50pm9.2 mg/dL8.5-10.1Eosinophils (%) (Auto)June 10, 2025 1:37pmOctober 2024 1:37pm4.4 %0.9-7.0LDL Cholesterol, CalculatedOct2024 6:42amOct2024 6:27nr111.2 mg/dL<100 mg/dl AETTYRX940-583 mg/dl NEAR OR ABOVE QPJAXRD186-387 mg/dl BORDERLINE NOBJ798-738 mg/dl HIGH>190 mg/dl VERY HIGH HematocritSeptember 2024 2:50pmSeptember 2024 2:50pm40.9 %Below low .0-54.0Chloride LevelSeptember 2024 2:50pmSeptember 2024 2:18fj336 mmol/T36-288AlavqqnsnrGgyppve 2024 1:37pmOct2024 1:37pm 40.8 %Below low pniqlj72.0-54.0Triglycerides LevelOctober 2024 6:42am July 05, 2025 6:42am79 mg/dL<=150HemoglobinSeptember 2024 2:50pm June 03, 2025 2:50pm13.8 g/dLBelow low svgyct13.0-18.0Carbon Dioxide LevelSeptember 2024 2:50pmSept2024 2:50pm26.9 mmol/L21.0-32.0 HemoglobinOct2024 1:37pmOct2024 1:37pm13.6 g/dLBelow low .0-18.0VLDL CholesterolOctober 2024 6:42amOct2024 6:42am15.8 mg/dLImmature Granulocyte # (Auto)June 03, 2025 2:50pm June 03, 2025 2:50pm0.02 10 3/uL0.00-0.03CreatinineSeptember 2024 2:50pmSept2024 2:50pm0.83 mg/dL0.70-1.30Immature Granulocyte # (Auto)June 10, 2025 1:37pmOct2024 1:37pm0.02 10 3/uL0.00-0.03 Immature Granulocyte % (Auto)June 03, 2025 2:50pmSeptember 2024 2:50pm0.2 %0.0-0.5Estimated GFR ()June 03, 2025 2:50pm June 03, 2025 2:50pm>60>=60 mL/min/1.73m 2Immature Granulocyte % (Auto) June 10, 2025 1:37pmOctober 2024 1:37pm0.2 %0.0-0.5Lymphocytes # (Auto) June 03, 2025 2:50pmSeptember 2024 2:50pm1.4 10 3/uL1.2-3.8 Estimated GFR (Non- AmericanSept2024 2:50pmSeptember 2024 2:50pm>60>=60 mL/min/1.73m 2Lymphocytes # (Auto)June 10, 2025 1:37pm June 10, 2025 1:37pm1.6 10 3/uL1.2-3.8Lymphocytes (%) (Auto)June 03, 2025 2:50pmSeptember 2024 2:50pm13.1 %Below low iqsagp31.5-60.0Glucose LevelSeptember 2024 2:50pmSeptember 2024 2:50pm85 mg/wV58-816 Lymphocytes (%) (Auto)June 10, 2025 1:37pmOctober 2024 1:37pm16.0 % Below low fikzxq24.5-60.0Mean Corpuscular HemoglobinSeptember 2024 2:50pm June 03, 2025 2:50pm29.6 pg25.9-34.0Potassium LevelSeptember 2024 2:50pmSeptember 2024 2:50pm3.6 mmol/L3.5-5.1Mean Corpuscular Hemoglobin June 10, 2025 1:37pmOctober 2024 1:37pm29.5 pg25.9-34.0Mean Corpuscular Hemoglobin ConcentSeptember 2024 2:50pmSeptember 2024 2:50pm33.7 g/dL29.9-35.2Sodium LevelSeptember 2024 2:50pmSeptember 2024 2:50pm 138 mmol/S985-036Yrin Corpuscular Hemoglobin ConcentOctober 2024 1:37pm June 10, 2025 1:37pm33.3 g/dL29.9-35.2Mean Corpuscular VolumeSeptember 2024 2:50pmSeptember 2024 2:50pm87.6 fL80.0-94.0Mean Corpuscular Volume June 10, 2025 1:37pmOctober 2024 1:37pm88.5 fL80.0-94.0Monocytes # (Auto)June 03, 2025 2:50pmSeptember 2024 2:50pm0.8 10 3/uL0.3-0.8 Monocytes # (Auto)June 10, 2025 1:37pmOctober 2024 1:37pm0.7 10 3/uL 0.3-0.8Monocytes (%) (Auto)June 03, 2025 2:50pmSeptember 2024 2:50pm7.8 %1.7-12.0Monocytes (%) (Auto)June 10, 2025 1:37pmOctober 2024 1:37pm6.5 %1.7-12.0Mean Platelet VolumeSeptember 2024 2:50pmSeptember 2024 2:50pm10.0 fL9.5-13.5Mean Platelet VolumeOctober 2024 1:37pm June 10, 2025 1:37pm9.4 fLBelow low normal9.5-13.5Neutrophils # (Auto) June 03, 2025 2:50pmSeptember 2024 2:50pm8.1 10 3/uLAbove high normal1.4-6.5Neutrophils # (Auto)June 10, 2025 1:37pmOctober 2024 1:37pm7.3 10 3/uLAbove high normal1.4-6.5Neutrophils (%) (Auto)June 03, 2025 2:50pmSept2024 2:50pm75.4 %Above high khtbti33.0-75.0 Neutrophils (%) (Auto)June 10, 2025 1:37pmOctober 2024 1:37pm72.1 % 43.0-75.0Platelet CountSeptember 2024 2:50pmSeptember 2024 2:78yp010 10 3/qU840-402Tjhscrdv CountOctober 2024 1:37pmOct2024 1:92fn137 10 3/kN913-150Jzq Blood CountSeptember 2024 2:50pmSept2024 2:50pm4.67 10 6/uLBelow low normal4.70-6.10Red Blood CountOct2024 1:37pmOctober 2024 1:37pm4.61 10 6/uLBelow low normal4.70-6.10Red Cell Distribution WidthSept2024 2:50pmSept2024 2:50pm14.0 % 11.0-15.0Red Cell Distribution WidthOctober 2024 1:37pmOctober 2024 1:37pm14.1 %11.0-15.0Corrected White Blood CountSept2024 2:50pm June 03, 2025 2:50pm10.8 10 3/uL4.0-11.0Corrected White Blood Count June 10, 2025 1:37pmOct2024 1:37pm10.1 10 3/uL4.0-11.0 Vital Signs Vital Reading Result Reference Range Collection Date/Time Height 76 [in_i] June 07, 2025 10:48haGzrnvi830.86 kgSept2024 10:32amBody Jnziddwhyri00.8 [degF]97.6-99.0Sept2024 10:32amHeart Rate59 /min 60-100Sept2024 10:32amRespiratory rate18 /buq24-23Spmwsbvwe 2024 10:32amOxygen saturation by Pulse %95-100September 2024 10:32amBP Dfbvmnfq705 mm[Hg]100-140September 2024 10:32amBP Znfwsnlzi39 mm[Hg]60-100September 2024 10:32amBMI (Body Mass Index)29.2 kg/p7Xrfssqflw2024 10:63tgSjmorl66 [in_i]July 14, 2025 1:42pmBody Luvtddumewo91.3 [degF]97.6-99.0Nov2024 1:42pmHeart Rate92 /xdf97-447Rosbnolf 2024 1:42pmRespiratory rate20 /xid87-56Ieakimxy 6th, 2025 1:42pmOxygen saturation by Pulse twfopkqu01 %95-100Nov2024 1:42pmBP Upnhtdfz124 mm[Hg]100-140Nov2024 1:42pmBP Bspgxxryr34 mm[Hg]60-100November 2024 1:09vbOvtahc18 [in_i]August 15, 2025 1:73psGbthal314.72 kgDecember 2024 1:28pmBody Xxxmlzitqzg27.3 [degF]97.6-99.0December 2024 1:28pmHeart Rate97 /mnl43-679Haukdlyy 2024 1:28pmRespiratory rate24 /wue76-85Qiehzfbp 8th, 2025 1:28pmOxygen saturation by Pulse ekqtvmow00 %95-100December 2024 1:28pmBP Qruqtriw614 mm[Hg]100-140December 2024 1:28pmBP Fovyjjivi51 mm[Hg] 60-100December 2024 1:28pmBMI (Body Mass Index)34.0 kg/l7Ypuvvtqi 2024 1:28pm Advance Directives Advance Directive Response Recorded Date/ Time Advance Directives No October 07, 2023 4:56pm Insurance Providers Guarantor Avinash Mahajan Address [address] [id number] Info.Home Phone: Coverage Status Update:2025 Payer Group Member ID Coverage Type Subscriber Relationship to Subscriber Effective Date Expiration Date [facility] [id number] [facility] Id: [id number] [address] [address] Home Phone: self Encounters Encounter Location(s) Arrival/Admit Date Discharge/Departure Date Discharge/Departure Disposition Provider(s) Non-patient / Non-visit -[facility] June 03, 2025 3:50pm Edgardo Blankenship DODeparted Physician/Provider Office Visit-[facility] Family Medicine [facility]2024 11:09amSept2024 12:03pmDischarged to home care or self care (routine discharge)PA ParekhCNon-patient / Mps-mwowi-[facility] 2024 2:37pmPA ParekhCNon-patient / Fsl-dtruu-Ibwwn [facility]October 2024 1:05pm PA ParekhCNon-patient / Gvd-fytij-[place] [facility]October 2024 7:42amDARRIAN Parekheparted Physician/Provider Office Visit -[facility] Family Medicine [facility] 2024 1:26pmNov2024 2:20pm Discharged to home care or self care (routine discharge)ANASTACIO Parekh Departed Physician/Provider Office Visit-[facility] Family [facility] 2024 1:58pmDischarged to home care or self care (routine discharge)ANASTACIO Parekh Recent Diagnosis Onset Date Admit Date Chest pain Unknown June 07, 2025 11:09am Essential hypertension Unknown June 07, 2025 11:09am HERIBERTO (generalized anxiety disorder) Unknown June 07, 2025 11:09am MAR (obstructive sleep apnea) Unknown pt2024 11:09am Prediabetes Unknown June 07, 2025 11:09am Chest pain Unknown July 14 1:26pm Essential hypertension Unknown July 14, 2025 1:26pm HERIBERTO (generalized anxiety disorder) Unknown July 14, 2025 1:26pm MAR (obstructive sleep apnea) Unknown 2024 1:26pm Prediabetes Unknown July 14 1:26pm Chest pain Unknown August 15 1:13pm Essential hypertension Unknown August 15, 2025 1:13pm HERIBERTO (generalized anxiety disorder) Unknown August 15, 2025 1:13pm Morbid obesity due to excess calories Unknown August 15, 2025 1:13pm Olecranon bursitis of right elbow Unknown August 15, 2025 1:13pm MAR (obstructive sleep apnea) Unknown 2024 1:13pm Prediabetes Unknown August 15 1:13pm Assessments Diagnosis Onset Date Resolution Status Admit Date Chest pain acuteSeptember 2024 11:09amEssential hypertensionacuteSeptember 2024 11:09amGAD (generalized anxiety disorder)acuteSeptember 2024 11:09amOSA (obstructive sleep apnea)acuteSeptember 2024 11:09amPrediabetesacute June 07, 2025 11:09amChest painacuteNovember 2024 1:26pmEssential hypertensionacuteNovember 2024 1:26pmGAD (generalized anxiety disorder) acuteNov2024 1:26pmOSA (obstructive sleep apnea)acuteNov2024 1:26pmPrediabetesacuteNovember 2024 1:26pmChest painacuteDecember 2024 1:13pmEssential hypertensionacuteDecember 2024 1:13pmGAD (generalized anxiety disorder)acuteDecember 2024 1:13pmMorbid obesity due to excess caloriesacutece2024 1:13pmOlecranon bursitis of right elbowacute August 15, 2025 1:13pmOSA (obstructive sleep apnea)acuteDecember 2024 1:13pmPrediabetesacuteDecember 2024 1:13pm Plan of Treatment Author [facility] 4:18pmfamily hx CAD, pt w +risk factors DM, HTN, MAR reviewed cardiology notes as well, they opine that likely anxiety as well current meds: asa, statin, b karolyn he does have fu with cardiology tomorrow Please check blood pressure daily and record DASH diet Limit caffeine Take medication as directed Contact office if chest pain, pressures, dizziness, shortness of breath, swelling in the legs Recommend slow position changes if you develop dizziness with position changes current meds: metoprolol XL 50mg Check blood sugars daily, notify the office if <70 or > 200. Take medications (pills or insulin) as directed. Monitor for s/s of low blood sugar (sweaty, dizziness, nausea, vomiting, or shakiness). Watch for increase thirst, urination, and appetite as these can be signs of high blood sugar. Inspect your feet frequently monitor for open wounds, wear proper fitting shoes as well. Pt should attempt to remain as physical active as chronic conditions allow, as well as trying to follow a diet lower in carbohydrates, and simple sugars. meds: asa, statin, metformin a1c: 6.3% 04/12/25 You have a diagnosis of MAR it is recommended that you wear your PAP device anytime while in bed sleeping. Not using the PAP device can increase your risk of elevated or uncontrolled blood pressure, atrial fibrillation, heart attack, stroke, and sudden . Compliance with PAP:yes How many hours of use per night:7 Do you feel refreshed in the morning:not always current meds: buspar BID 06/07/25 : PHQ 9 score 7, and HERIBERTO 7 score 13 07/14/25: PHQ 9 score 9, and HERIBERTO 7 score 10 will will increase buspar to 10mg BID, and add sertraline at 50mg, take 1/2 pill daily for 3 days, then increase to 1pill Take medication only as directed. This medication will take approximately 4-6 weeks to become effective. If any suicidal thoughts, thoughts of hurting others, or hallucinations contact the office or proceed to the Emergency Room for mental health evaluation. This medication can cause dry mouth, dizziness, and in some cases worsening in depression symptoms. Please contact the office if these occur. Author [facility] 11:52amfamily hx CAD +risk factors DM, HTN, MAR will increase his b karolyn to 75mg as he is hypertensive in office had E[facility] earlier this year, no stress test completed we discussed differenitals of chest pain, strong suspicion it is anxiety but will refer back to cardiology for further evaluation Please check blood pressure daily and record DASH diet Limit caffeine Take medication as directed Contact office if chest pain, pressures, dizziness, shortness of breath, swelling in the legs Recommend slow position changes if you develop dizziness with position changes current meds: metoprolol XL 50mg, will increase to 75mg Check blood sugars daily, notify the office if <70 or > 200. Take medications (pills or insulin) as directed. Monitor for s/s of low blood sugar (sweaty, dizziness, nausea, vomiting, or shakiness). Watch for increase thirst, urination, and appetite as these can be signs of high blood sugar. Inspect your feet frequently monitor for open wounds, wear proper fitting shoes as well. Pt should attempt to remain as physical active as chronic conditions allow, as well as trying to follow a diet lower in carbohydrates, and simple sugars. meds: asa, statin, metformin a1c: 6.3% 04/12/25 You have a diagnosis of MAR it is recommended that you wear your PAP device anytime while in bed sleeping. Not using the PAP device can increase your risk of elevated or uncontrolled blood pressure, atrial fibrillation, heart attack, stroke, and sudden . Compliance with PAP:yes How many hours of use per night:7 Do you feel refreshed in the morning:not always will try low dose of buspirone advised of how med works, side effects fu in 4 weeks Author [facility] Delarosa [facility] 1:58pmfamily hx CAD, pt w +risk factors DM, HTN, MAR reviewed cardiology notes as well, they opine that likely anxiety as well current meds: asa, statin, b karolyn reviewed cardiology notes from 07/15/25, plan was to fu in 2 months ,if CP still with sertraline, would order treadmill stress test no longer having this current meds: buspar BID , and sertraline 06/07/25 : PHQ 9 score 7, and HERIBERTO 7 score 13 07/14/25: PHQ 9 score 9, and HERIBERTO 7 score 10 08/15/25: PHQ 9=0, and HERIBERTO 7=1 doing well, no changes in meds at this time fu in 2 months Please check blood pressure daily and record DASH diet Limit caffeine Take medication as directed Contact office if chest pain, pressures, dizziness, shortness of breath, swelling in the legs Recommend slow position changes if you develop dizziness with position changes meds: b karolyn Check blood sugars daily, notify the office if <70 or > 200. Take medications (pills or insulin) as directed. Monitor for s/s of low blood sugar (sweaty, dizziness, nausea, vomiting, or shakiness). Watch for increase thirst, urination, and appetite as these can be signs of high blood sugar. Inspect your feet frequently monitor for open wounds, wear proper fitting shoes as well. Pt should attempt to remain as physical active as chronic conditions allow, as well as trying to follow a diet lower in carbohydrates, and simple sugars. meds: asa, statin, metformin a1c: 6.3% 08/15/25, 6.3% 04/12/25 You have a diagnosis of MAR it is recommended that you wear your PAP device anytime while in bed sleeping. Not using the PAP device can increase your risk of elevated or uncontrolled blood pressure, atrial fibrillation, heart attack, stroke, and sudden . Compliance with PAP:yes How many hours of use per night:7 Do you feel refreshed in the morning:not always Discussed with patient their BMI (actual vs recommended). We have discussed lifestyle modifications: attempts to perform phsyical activity as chronic conditions allow, monitor dietary intake: increasing protein/fruits/veggies and lowering carb intake (unless contraindicated). Limit sodas, juices, sugary drinks, as well as alcohol consumption. has gained about 30 pounds since last visit, is eating more, less active no swelling, no dyspnea cut back on portion sizes and has [employer] membership, I would like to see him get to using this for 45 minutes most days of the week cont meloxicam, ice affected area, hu wrap fu if not better, or redness, worsening swelling or pain Future Tests Future scheduled test information is unavailable Pending Tests Pending diagnostic test information is unavailable Future Visits Future appointment information is unavailable Future Procedures Procedure Name Ordered Date Scheduled Date AMB POC Hgb A1C August 15, 2025 6:56am Future Medications Future medication information is unavailable Patient Instructions Patient instructions are unavailable Hospital Discharge Instructions Ambulatory Orders* AMB POC Hgb A1C Time Frame: 08/15/25, Location: Determined By Patient
--- OUTSIDE RECORDS SUMMARY | 2025-08-25 07:37 | XMS_ITS | Clinical Summary ---
Author Organization [facility] Healthcare Address [address] [place] [address] Care Team Providers Care Straight Line Edger Name Role Phone Shen Perez MD Primary Care Provider [phone] Debbie Chavez NP Unavailable [phone] Allergies No known active allergies Medications MedicationSigDispense QuantityRefillsLast FilledStart DateEnd DateStatus tadalafil (Cialis) 10 MG tablet Take 20 mg by mouth.3Active metoprolol succinate XL (Toprol-XL) 50 MG 24 [...] clean tip and replace cap. 48 g 5Active aspirin 81 MG EC tablet Indications:TIA (transient ischemic attack)Take 1 tablet (81 mg) by mouth Daily 90 tablet Expired ferrous sulfate (FeroSul) 325 (65 Fe) MG tablet Indications:Iron deficiencyTake 1 tablet (325 mg) by mouth in the morning. Take with meals. 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 without cepjqdf1903/28/2025 Feeling of incomplete bladder dmlflowo35/11/2025bnormal EKG003/16/2025Hydrocele in adult12/17/2024 Assessment & Plan (04/12/2025 3:23 PM EDT): Has seen urology, is to have surgery this week Screening for prostate zacosn7412/13/2024 Overview (12/20/2024): PSA: 1.01 12/18/24 Swelling of left half of zngcefd5612/13/2024 Assessment & Plan (12/13/2024 10:30 AM EDT): [...] Doctor that manages your MAR: Addie Acute kwquhpri14/17/2024Iron deficiency snwwlm8202/25/2024 Assessment & Plan (12/13/2024 6:34 AM EDT): [...] after XR is done BPH with urinary jaikdguxfnh32/19/2023 Assessment & Plan (12/13/2024 6:33 AM EDT): [...] EDT): On Cialis, working well for him Earwcgylxgnhln54/19/2023 Assessment & Plan (12/13/2024 6:35 AM EDT): On statin therapy Check labs yearly and prn dose changes Assessment & Plan (08/24/2024 3:41 PM EST): Currently taking Atorvastatin 20mg Denies any myalgias. Continue current regimen. Assessment & Plan (02/25/2024 3:35 PM EDT): On lipitor 20. Lipid panel 03/01 LDL at goal Assessment & Plan (08/26/2023 4:25 PM EST): On Lipitor. Utrakrwkjfid98/19/2023 Assessment & Plan (04/12/2025 7:05 AM EDT): [...] Referred to GI for repeat Colonoscopy. Wellness vpuypehdoel02/19/2023 Assessment & Plan (08/26/2023 4:27 PM EST): Doing well overall. Tolerating meds w/o adverse effects. Reviewed medical, surgical and social hx. Reviewed medications. Patient forgot to get labs done that were ordered last appt. He will get thosedone as early as possible. Referred to GI for Colonoscopy. Recommended to get pneumonia vaccine. Uwiovhmrnpd43/24/2022 Assessment & Plan (04/12/2025 2:55 PM EDT): [...] Doing well. Resolved Problems ProblemNoted DateDiagnosed DateResolved DatePre-zypvyqun98 Swelling of left hptcsodn95URTI (acute upper respiratory infection)/03/2025 Assessment & Plan (08/26/2023 4:28 PM EST): Reports sinus congestion, sore throat x 1 week. Symptoms improving. Exam revealed hyperemic external ear canal and TM b/l. No fluid noted. Hyperemic oropharyngeal mucosa. Likely viral URTI. Supportive care, monitor. Call office if symptoms start to worsen. Encounters DateTypeDepartmentCare FlyqTkuogbiycau08/20/2025Orders Only [facility] [address] [place] [address] Shen Perez MD from Last 3 Months Immunizations ImmunizationAdministration DatesNext DueInfluenza, High Dose Seasonal, Preservative Free07/10/2024Influenza, Seasonal, Quadrivalent, Adjuvanted 06/22/2023,06/15/2022Influenza, Wxatigamqxe46/02/2024,06/08/2024,06/22/2023, 06/15/2022,06/30/2020,07/29/2019,07/17/2018Influenza, injectable, MDCK, preservative free, ekgeyoovyjxh24/09/2018Influenza, injectable, quadrivalent, preservative free06/30/2020,07/29/2019Influenza, seasonal, ayqwwixhmt34/01/2024 Novel spuzsbbxg-H2H9-44, preservative-free09/18/2009Pneumococcal Conjugate PCV 4RSV, recombinant, protein subunit RSVpreF, adjuvant reconstitu, 120mcg/0.5mL, PF (Arexvy)08/15/2023Tdap1Zoster, Ufarndcwrtp05/08/2020, 10/11/2019Zoster, live12/19/2016 Family History Medical HistoryRelationNameCommentsDiabetesFatherHeart diseaseFatherHypertension [...] the phone with family, friends, or neighbors?Patient /18/2023How often do you get together with friends or relatives?Once a week08/25/2023How often do you attend lutheran or episcopalian services?More than 4 times per year08/25/2023o you belong to any clubs or organizations such as lutheran groups, unions, fraternal or athletic groups, or school groups?Yes 08/25/2023How often do you attend meetings of the clubs or organizations you belong to?Never08/25/2023re you , , , , never , or living with a partner?Otiqsws6608/25/2023UDIT-CAnswerDate RecordedQ1: How often do you have a [...] like food, housing, medical care, and heating?Patient uusbbhgd45/18/2023[facility] [place] [facility] Occup[facility] Health - Occupational Stress QuestionnaireAnswerDate RecordedDo you feel stress - tense, restless, nervous, or anxious, or unable to sleep at night because yourmind is troubled all the time - these days?Only a btrwva2808/25/2023 Exercise Vital SignAnswerDate RecordedOn average, how many days per week do you engage in moderate to strenuous exercise (like a brisk walk)?Patient declined 08/25/2023On average, how many minutes do you engage in exercise at this level? Patient nmjyknrx13/18/2023Hunger Vital SignAnswerDate RecordedWithin the past 12 months, you worried that your food would run out before you got the money to buy more.Patient ttsimvyb09/18/2023Within the past 12 months, the food you [...] Last Filed Vital Signs Vital SignReadingTime TakenCommentsBlood Mhvgehvo069/7608 2:30 PM EDT Barxk0178 2:30 PM RDWGjykmoyuqwf57.9 ??C (98.5 ??F)04/12/2025 2:30 PM EDTRespiratory Awlp623804/12/2025 2:30 PM EDTOxygen Bfqmepgfer10%04/12/2025 2:30 PM EDTInhaled Oxygen Concentration--Cxrakd850 kg (255 lb 12.8 oz)04/12/2025 2:30 PM KOPSgwhfk473 cm (6' 4 )08/24/2024 3:25 PM ESTBody Mass Index31.14110/25/2023 3:25 PM EST Plan of Treatment Health MaintenanceDue DateLast DoneCommentsCT Yaqvudqsekgd1957FIT-DNA 1957FIT1955FOBT1955 2444Kttfgoyrickmr1957COVID-19 Vaccine ( season), 08/15/2023, 07/04/2022, Additional history existsInfluenza Vaccine (#1)/10/2023, 07/10/2024, 06/08/2024, Additional history zjuqliPmnakpfgwmr85/01/203402/09/2023, 10/07/2017 Colorectal Cancer Qiwffloot56/01/2034neumococcal Vaccine: 65+ YearsCompleted 09/13/2023 Procedures Procedure NamePriorityDate/TimeAssociated DiagnosisCommentsHM COLONOSCOPYRoutine 10/09/2023 9:52 AM ESTfrom Last 3 Months or Most Recently Relevant to Health Maintenance Results * Hm Colonoscopy (10/09/2023 9:52 AM EST)Anatomical RegionLateralityModality Other Narrative Authorizing ProviderResult TypeResult StatusShen Perez MDHEALTH MAINTENANCE Final Result from Last 3 Months or Most Recently Relevant to Health Maintenance Insurance Care Teams Team MemberRelationshipSpecialtyStart DateEnd Date Shen Perez MD PCP - GeneralFamily Medicine06/02/24 Debbei Chavez NP Nurse PractitionerFamily Medicine06/02/24
--- OUTSIDE RECORDS SUMMARY | 2025-08-25 07:37 | XMS_ITS | Clinical Summary ---
Author Organization [facility] Address [address] [place] [address] Care Team Providers Care Patcher Wood Welder Name Role Phone Sophie Delarosa MD Primary Care Provider Allergies No known active allergies Medications MedicationSigDispense QuantityRefillsLast FilledStart DateEnd DateStatus metFORMIN (Glucophage) 500 mg tablet Take 500 mg by mouth with breakfast and with evening meal.3Active meloxicam (Mobic) 15 mg tablet Take 15 mg by mouth in the morning.Active metoprolol succinate XL (Toprol-XL) 50 mg 24 hr tablet Take 50 mg by mouth in the morning.Active FeroSuL 325 mg (65 mg iron) tablet TAKE 1 TABLET BY MOUTH IN THE MORNING WITH MEALSActive dutasteride (Avodart) 0.5 mg capsule Take 0.5 mg by mouth in the morning.5Active busPIRone (Buspar) 5 mg tablet Take 1 tablet by mouth Twice daily at 6am and 6pm.5Active fluticasone (Flonase) 50 mcg/actuation nasal spray Administer 1 spray into each nostril in the morning.Active tadalafil (Cialis) 10 mg tablet Take 10 mg by mouth if needed each day.5Active tamsulosin (Flomax) 0.4 mg 24 hr capsule Take 0.4 mg by mouth in the morning.4Active sertraline (Zoloft) 50 mg tablet Take 50 mg by mouth.5Active atorvastatin (Lipitor) 20 mg tablet Indications:Mixed hyperlipidemiaTake 1 tablet (20 mg) by mouth at bedtime. 90 tablet 6Active aspirin 81 mg EC tablet Take 81 mg by mouth in the morning.Expired Active Problems ProblemNoted DateDiagnosed DateChest pain07/15/2025GAD (generalized anxiety disorder)07/15/2025Tinea pedis of both feet07/15/2025Status post repair of dlvzygzuj75/03/2025Acute non-recurrent maxillary xsnhpwppi90/05/2025 Agpywisfpuwxpwp17/05/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 without sjxurny6703/28/2025 Uvorusxmjxxzop02/11/8107Kkmmfdvk49/11/2025Feeling of incomplete bladder emptying 03/18/2025History of kidney denimz2603/18/20251894Disntuhjl04/11/2025bnormal EKG 03/16/2025Hydrocele in adult12/17/2024OSA (obstructive sleep apnea)12/13/2024 Swelling of left half of oevsfab50/07/2025Acute couxqpts05/17/2024Chronic left shoulder pain4Chronic pain of left knee02/25/2024Iron deficiency anemia 4BPH with urinary gkauodlvnpl62/19/2023ED (erectile dysfunction) 08/26/20239879Tflitqnmveemci64/19/1285Jnzhekadxrmo16/19/2023reoperative evaluation to rule out surgical dfhdpklglqskpqla51/19/2023TIA (transient ischemic attack) 08/26/20238778Lroppftuqdr91/24/2022Obesity (BMI 30-39.9)2Precordial pain 12/10/2019 Encounters DateTypeDepartmentCare IvwvNhiawqvhulh81/17/2025Orders Only [facility] [address] [place] [address] Bina Birch MA Mixed hyperlipidemia (Primary Dx)07/25/2025Refill [facility] [address] [place] [address] Bina Birch MA Mixed hyperlipidemia (Primary Dx)07/15/2025 9:[address] 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; Primary hypertension; Type 2 diabetes mellitus without complication, without long-term current use of insulin (CMS/HCC); Pure hypercholesterolemia; TIA (transient ischemic attack); Abnormal EKG; Obesity (BMI 30-39.9)06/10/2025 3:20 PM EDTOffice Visit [facility] [address] [place] [facility] [place] [address] Mallory Reyes MD Atypical chest pain (Primary Dx); Abnormal EKG; TIA (transient ischemic attack); Primary hypertension; Pure hypercholesterolemia; Type 2 diabetes mellitus without complication, without long-term current use of insulin (CMS/HCC); Obesity (BMI 30-39.9); MAR (obstructive sleep apnea)from Last 3 Months Family History Medical HistoryRelationNameCommentsCABGFatherCoronary artery diseaseFatherHeart attackFatherCoronary artery diseaseMaternal GrandfatherpacemakerMaternal GrandfatherRelationNameStatusCommentsFatherDeceasedMaternal GrandfatherMother Social History Tobacco UseTypesPacks/DayYears UsedDateSmoking Tobacco: NeverSmokeless Tobacco: Never Tobacco Cessation:Counseling Given: Not Answered Alcohol UseStandard Drinks/WeekCommentsNot Currently0 (1 standard drink = 0.6 oz pure alcohol)Sex and Gender InformationValueDate RecordedSex Assigned at Male06/10/2025 2:39 PM EDTLegal KcfQfod6303/16/2025 1:59 PM EDTGender IdentityMale 06/10/2025 2:39 PM EDTSexual OrientationHeterosexual or Phhxyved78/03/2025 2:39 PM EDT Last Filed Vital Signs Vital SignReadingTime TakenCommentsBlood Bdqkmjql182/7607/15/2025 8:53 AM EST Xejxr546207/15/2025 8:53 AM ESTTemperature--Respiratory Rate--Oxygen Xgxlghhzyz35% 07/15/2025 8:53 AM ESTInhaled Oxygen Concentration--Owlxiq736 kg (268 lb) 07/15/2025 8:53 AM OZCAxbnuq431 cm (6' 4 )07/15/2025 8:53 AM ESTBody Mass Index 32.6207/15/2025 8:53 AM EST Plan of Treatment DateTypeDepartmentCare Team (Latest Contact Info)Jkcpjiicyjh61/26/2025 9:20 AM ESTOffice Visit [facility] [address] [place] [address] Mallory Reyes MD [address] [place] [address] Health MaintenanceDue DateLast DoneCommentsCT Ckrpxqncprxz1957Colonoscopy 1957Colorectal Cancer Mvxecxhmw1957Diabetes: Hemoglobin A1C 1957FIT-DNA1957FIT1957FOBT1957Medicare Annual Wellness (AWV)1955 0043Fcbnbfljryutu1957Diabetes: Retinopathy Qbplzdqyw45/12/1967 Depression Dthpusysl19/12/1969Diabetes: Urine Protein Pzrzbecwr61/12/1976Fall Risk Vgkykdvmd50/12/2022OVID-19 Vaccine ( season)2025 06/23/2025, 07/10/2024, 08/15/2023, Additional history existsAdult Tetanus Zoster HktgoobaWvvlltzhi03/08/2020, 10/11/2019, 12/19/2016 Pneumococcal Vaccine: 50+ MwjbsMxfpiroem32/06/2024Influenza VaccineCompleted 06/23/2025, 07/10/2024, 06/08/2024, Additional history existsHIB VaccinesAged OutNo longer eligible based on patient's age to complete this topicHPV Vaccines Aged OutNo longer eligible based on patient's age to complete this topicIPV VaccinesAged OutNo longer eligible based on patient's age to complete this topic Meningococcal B VaccineAged OutNo longer eligible based on patient's age to complete this topicMeningococcal VaccineAged OutNo longer eligible based on patient's age to complete this topicRotavirus VaccinesAged OutNo longer eligible based on patient's age to complete this topic Insurance Care Teams Team MemberRelationshipSpecialtyStart DateEnd Date Sophie Delarosa MD [address] [place] [address] PCP - GeneralNurse Practitioner03/16/25
--- OUTSIDE RECORDS SUMMARY | 2025-08-25 07:37 | XMS_ITS | Clinical Summary ---
Author Organization [employer] [facility] Address [id number] [address] [place] [address] Care Team Providers Care Lopper Name Role Phone Shaikh MEG Carlos Primary Care Provider [phone] Allergies No known active allergies Medications MedicationSigDispense [...] standard drink = 0.6 oz pure alcohol)ChildcareAnswerDate DrotfhcsYfmvhhhsuXtqdums17/12/2019Employment AnswerDate StpabmfnPxjyyknkiiGhkidzb24/12/2019Purpose - LifeAnswerDate Recorded Purpose and direction in bhruHjxqlcw17/11/2021ex and Gender InformationValue Date RecordedSex Assigned at BirthNot on fileLegal FnoLwkg8304/13/2015 12:02 PM EDTGender IdentityNot on fileSexual OrientationNot on file Last Filed Vital Signs Vital SignReadingTime TakenCommentsBlood Wlwvtldd842/9006 2:07 PM EDT Svzge330303/01/2022 2:07 PM RRVGxqhkahabsh63.4 ??C (97.6 ??F)09/14/2021 9:59 PM ESTRespiratory Fwwx984609/14/2021 10:27 PM ESTOxygen Xqjcrlxswk70%03/01/2022 2:07 PM EDTInhaled Oxygen Concentration--Eodeig329.4 kg (261 lb)03/01/2022 2:07 PM HLQDroccu686 cm (6' 4 )03/01/2022 2:07 PM EDTBody Mass Index31.77003/01/2022 2:07 PM EDT Plan of Treatment Health MaintenanceDue DateLast DoneCommentsDepression Yaymaozlq45/12/1969Tobacco Cohutqahy12/12/1969Adult BMI Bpbazwzrd24/12/1975Fall Risk Oldxznnab27/12/2022 COVID-19 Vaccine ( season)/04/2023, 07/04/2022, 12/07/2020, Additional history existsInfluenza Klwrmzh43/, 06/15/2022, 06/15/2022, Additional history existsDTaP,Tdap and Td Vaccines (2 - Td or Tdap)Zoster (Shingles) NsuagqkFeyzqsccg66/08/2020, 10/11/2019, 12/19/2016RSV ( or age 60+ yrs)Kotbkhjzy08/08/2023 Medical Devices Not on file Insurance Care Teams Team MemberRelationshipSpecialtyStart DateEnd Date Shaikh Carlos MD PCP - GeneralInternal Medicine02/27/23
[2025-08-25 08:37] LABS: Alanine Aminotransferase 36 U/L (16-63); Aspartate Amino Transferase 18 U/L (15-37); Cholesterol 118 mg/dL (<=200); HDL Cholesterol 54 mg/dL (40-60); Triglycerides 39 mg/dL (<=150); VLDL CHOLESTEROL 7.8 mg/dL
== END 2025-08-25 07:32 | disposition home or self-care (01) ==
LOC: LAB 07:33
PROVIDERS: PCP Nurse Practitioner; Visit Provider Internal Medicine Cardiovascular Disease
DX: E78.2 Mixed hyperlipidemia (principal)
CPT/HCPCS: 36415; 80061; 84450; 84460